=== PATIENT | male | born 1950 | race Caucasian/White ===

== ENCOUNTER 2018-07-25 00:34 | Inpatient (IN) | payer MEDICARE ==
[~2018-07-25] VITALS: Ht 170.2 cm; Wt 95.9 kg
[2018-07-25] VITALS (17 sets, daily range): BP systolic 105–172; BP diastolic 59–97
[~2018-07-25 00:34] MED LIST: AMLODIPINE BESY10 MG PO; ASPIRIN81 MG PO; CYMBALTA30 MG PO; FLECAINIDE ACE100 MG PO; HUMULIN R100 UNIT/2 SQ; LOSARTAN POTASS25 MG PEG; METFORMIN HCL500 MG PO; NOVOLIN N100 UNIT/1 SQ
--- OUTSIDE RECORDS SUMMARY | 2018-07-25 00:36 | XMS REPORT | Clinical Summary ---
Author Author [facility] Address Unknown Phone Unavailable Care Team Providers Care Snack [employer] Cook Name Role Phone Jeremy Olivo MD PCP Allergies Comments Active Allergy Reactions Severity Noted Date Carisoprodol Rash Low 08/15/2017 Medications End Date Status Medication Sig Dispensed Refills Start Date Active atorvastatin (LIPITOR) 20 Take 20 mg by 0 08/13/201 MG tablet mouth daily. 8 Active DULoxetine (CYMBALTA) 60 Take 60 mg by 0 08/14/201 MG capsule mouth daily. 8 Active flecainide (TAMBOCOR) 100 Take 100 mg 0 08/06/201 MG tablet by mouth 8 every 12 (twelve) hours. Active metFORMIN (GLUCOPHAGE) Take 1,000 mg 0 1,000 mg tablet by mouth 2 8 (two) times a day. Active ramipril (ALTACE) 5 MG Take 5 mg by 0 capsule mouth daily. 8 Active tamsulosin (FLOMAX) 0.4 Take 0.4 mg 0 mg capsule by mouth daily. Active dapagliflozin 10 mg Take 10 mg by 0 tablet mouth daily with breakfast. Active aspirin (ECOTRIN) 81 MG Take 81 mg by 0 enteric coated tablet mouth every evening. Per patient's spouse medication is currently ON HOLD x 3 days. Active insulin NPH (HumuLIN-N) Inject 25 0 100 unit/mL injection Units under the skin 2 (two) times a day. 02/13/2019 Active gabapentin (NEURONTIN) Take 2 180 capsule 0 300 mg capsule capsules (600 8 mg total) by mouth 3 (three) times a day. 02/14/2019 Active amLODIPine (NORVASC) 5 mg Take 1 tablet 30 tablet 0 tablet (5 mg total) 8 by mouth daily. Active guaiFENesin (MUCINEX) 600 Take 1 tablet 0 mg tablet extended (600 mg 8 release 12hr total) by mouth 2 (two) times a day as needed (cough). 02/13/2019 Active sennosides-docusate Take 1 tablet 60 tablet 0 sodium (SENOKOT-S) 8.6-50 by mouth 2 8 mg per tablet (two) times a day. 02/13/2019 Active clonIDINE (CATAPRES) 0.1 Take 1 tablet 0 MG tablet (0.1 mg 8 total) by mouth every 8 (eight) hours as needed for high blood pressure (SBP > 160). 02/13/2018 Discontinued amLODIPine (NORVASC) 10 Take 10 mg by 0 mg tablet mouth daily. 8 12/22/2017 Discontinued sulfamethoxazole-trimetho 0 prim (BACTRIM DS) 800-160 8 mg per tablet 08/15/2017 Discontinued piroxicam (FELDENE) 20 MG Take 1 30 capsule 0 capsule capsule (20 8 mg total) by mouth daily. 02/07/2018 Discontinued traMADol (ULTRAM) 50 mg Take 1 tablet 60 tablet 0 tablet (50 mg total) 8 by mouth every 4 (four) hours as needed for moderate pain. 09/14/2017 cyclobenzaprine Take 1 tablet 30 tablet 0 (FLEXERIL) 5 mg tablet (5 mg total) 8 by mouth 3 (three) times a day as needed for muscle spasms for up to 30 days. 01/08/2018 Discontinued piroxicam (FELDENE) 20 MG TAKE 1 90 capsule 0 capsule CAPSULE(20 8 MG) BY MOUTH DAILY 02/13/2018 Discontinued HYDROcodone-acetaminophen Take 1 tablet 60 tablet 0 (NORCO) 10-325 mg per by mouth 8 tablet every 6 (six) hours as needed for moderate pain Earliest Fill Date: 09/20/17. Max Daily Amount: 4 tablets 01/21/2018 polyethylene glycol Take 17 g by 30 packet 0 (MIRALAX) 17 gram packet mouth daily 8 for 30 days. 02/07/2018 Discontinued sennosides-docusate Take 1 tablet 30 tablet 0 sodium (SENOKOT-S) 8.6-50 by mouth 8 mg per tablet nightly. 01/22/2018 pantoprazole (PROTONIX) Take 1 tablet 30 tablet 0 40 MG EC tablet (40 mg total) 8 by mouth daily for 30 days. 01/08/2018 Discontinued metroNIDAZOLE (FLAGYL) Take 1 tablet 33 tablet 0 500 MG tablet (500 mg 8 total) by mouth 3 (three) times a day for 11 days. 12/29/2017 Discontinued ciprofloxacin (CIPRO) 500 Take 1 tablet 18 tablet 0 MG tablet (500 mg 8 total) by mouth 2 (two) times a day for 9 days. 01/08/2018 Discontinued bisacodyl (DULCOLAX) 5 mg Take 1 tablet 5 tablet 0 EC tablet (5 mg total) 8 by mouth 2 (two) times a day for 1 day. Prn constiparion 01/08/2018 Discontinued sulfamethoxazole-trimetho Take 1 tablet 20 tablet 0 prim (BACTRIM DS) 800-160 by mouth 2 8 mg per tablet (two) times a day for 10 days. smx-tmp DS (BACTRIM) 800-160 mg tabs (1tab q12 D10) 01/08/2018 Discontinued docusate sodium (COLACE) Take 1 10 capsule 0 100 MG capsule capsule (100 8 mg total) by mouth every 12 (twelve) hours for 5 days. 01/08/2018 Discontinued traMADol (ULTRAM) 50 mg Take 1 tablet 15 tablet 0 tablet (50 mg total) 8 by mouth every 6 (six) hours as needed for moderate pain for up to 10 days. In replacement of norco 02/13/2018 Discontinued pregabalin (LYRICA) 50 MG Take 1 60 capsule 0 capsule capsule (50 8 mg total) by mouth 2 (two) times a day for 30 days. 02/13/2018 Discontinued hyoscyamine Take 1 tablet 60 tablet 0 (ANASPAZ,LEVSIN) 0.125 mg (0.125 mg 8 tablet total) by mouth every 4 (four) hours as needed for cramping for up to 30 days. 01/09/2018 bisacodyl (DULCOLAX) 5 mg Take 1 tablet 5 tablet 0 EC tablet (5 mg total) 8 by mouth 2 (two) times a day for 1 day. Prn constiparion 02/13/2018 Discontinued docusate sodium (COLACE) Take 1 60 capsule 0 100 MG capsule capsule (100 8 mg total) by mouth every 12 (twelve) hours for 30 days. 02/13/2018 Discontinued insulin regular, human Inject 25 0 (NOVOLIN R REGULAR U-100 Units as INSULN INJ) directed 3 (three) times a day before meals. 02/13/2018 Discontinued finasteride (PROSCAR) 5 Take 5 mg by 0 mg tablet mouth daily. 03/15/2018 ondansetron ODT Take 1 tablet 0 (ZOFRAN-ODT) 4 MG (4 mg total) 8 disintegrating tablet by mouth every 8 (eight) hours as needed for nausea or vomiting for up to 30 days. 03/15/2018 hyoscyamine Take 1 tablet 60 tablet 0 (ANASPAZ,LEVSIN) 0.125 mg (0.125 mg 8 tablet total) by mouth every 4 (four) hours as needed for cramping for up to 30 days. 03/15/2018 metoclopramide (REGLAN) 5 Take 1 tablet 120 tablet 0 MG tablet (5 mg total) 8 by mouth 4 (four) times a day before meals and nightly for 30 days. 03/15/2018 docusate sodium (COLACE) Take 1 60 capsule 0 100 MG capsule capsule (100 8 mg total) by mouth every 12 (twelve) hours for 30 days. 03/15/2018 polyethylene glycol Take 17 g by 0 (MIRALAX) 17 gram packet mouth daily 8 as needed for constipation for up to 30 days. 02/27/2018 HYDROcodone-acetaminophen Take 2 0 (NORCO) 5-325 mg per tablets by 8 tablet mouth every 6 (six) hours as needed for moderate pain for up to 14 days. Max Daily Amount: 8 tablets 05/14/2018 indomethacin (INDOCIN) 25 Take 1 90 capsule 0 MG capsule capsule (25 8 mg total) by mouth 3 (three) times a day with meals for 90 days. 02/27/2018 hydromorPHONE (DILAUDID) Take 1 tablet 0 2 MG tablet (2 mg total) 8 by mouth every 4 (four) hours as needed for moderate pain (score 4-6) for up to 14 days. 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 Encounters Care Team Description Date Type Specialty Darnell Kern MD 02/11/2018 Refill Orthopedic Surgery Karl Jimenez MD Asbury, James F., MD Pain of left hip joint (Primary Dx); Unable to walk 02/07/2018 [facility] General Internal Medicine - Encounter 02/13/2018 Jacqui Sorenson MD NPH (normal pressure hydrocephalus) (Primary Dx); Lumbar radiculopathy 01/16/2018 Office Visit Neurosurgery Saran Grimes MD Lumbar spondylosis (Primary Dx) 12/31/2017 [facility] General Internal Medicine - Encounter 01/08/2018 Dilia Nelson MD Left lower quadrant pain (Primary Dx); UTI (urinary tract infection), bacterial; Lumbar radiculopathy, chronic 12/29/2017 Emergency Emergency Medicine Claudio Ha MD Shehata, Mohamed M., MD Intractable abdominal pain (Primary Dx); Left lower quadrant pain; Lumbar radiculopathy 12/17/2017 [facility] General Internal Medicine - Encounter 12/22/2017 Harinder Mcdowell MA Spinal stenosis of lumbar region, unspecified whether neurogenic claudication present (Primary Dx); Lumbar radiculopathy 09/27/2017 Orders Only Orthopedic Surgery Darnell Kern MD 09/24/2017 Telephone Orthopedic Surgery Darnell Kern MD Lumbar strain, subsequent encounter 09/22/2017 Hospital Radiology Encounter Darnell Kern MD Lumbar strain, subsequent encounter (Primary Dx); Lumbar radiculopathy 09/20/2017 Office Visit Sports Medicine Darnell Kern MD Strain of lumbar region, initial encounter (Primary Dx); Lumbar spondylosis; History of lumbar fusion 08/15/2017 Office Visit Sports Darnell Augustin MD 08/15/2017 Refill Sports Medicine after 07/24/2017 Family History Medical History Relation Name Comments Diabetes Father Cancer Mother Hypertension Mother Relation Name Status Comments Father Mother Social History Date Tobacco Use Types Packs/Day Years Used Never Smoker Smokeless Tobacco: Never Used Alcohol Use Drinks/Week oz/Week Comments No Sex Assigned at Date Recorded Not on file Industry Job Start Date Occupation Not on file Not on file Not on file Travel End Travel History Travel Start No recent travel history available. Last Filed Vital Signs Time Taken Vital Sign Reading 02/13/2018 12:18 PM CDT Blood Pressure 132/76 02/13/2018 12:18 PM CDT Pulse 74 02/13/2018 12:18 PM CDT Temperature 36.2 C (97.2 F) 02/13/2018 12:18 PM CDT Respiratory Rate 18 02/13/2018 12:18 PM CDT Oxygen Saturation 96% - Inhaled Oxygen - Concentration 02/09/2018 7:55 AM CDT Weight 89.4 kg (197 lb) 02/09/2018 7:55 AM CDT Height 177.8 cm (5' 10") 02/09/2018 7:55 AM CDT Body Mass Index 28.27 Plan of Treatment Health Maintenance Due Date Last Done Comments COLON CANCER SCREENING 1998 SHINGLES VACCINES (1 of 1998 2) PNEUMOCOCCAL-13 2013 INFLUENZA VACCINE 01/16/2018 03/24/2015, 06/24/2014 PNEUMOCOCCAL Completed 06/24/2014 POLYSACCHARIDE VACCINE AGE 65 AND OVER Implants Device Identifier Shelf Expiration Date Model / Serial / Lot Implanted Type Area Manufactur er Clips Procedures Comments Procedure Name Priority Date/Time Associated Diagnosis POC GLUCOSE Routine 02/13/2018 12:17 PM CDT POC GLUCOSE Routine 02/13/2018 7:05 AM CDT POC GLUCOSE Routine 02/12/2018 9:53 PM CDT POC GLUCOSE Routine 02/12/2018 5:39 PM CDT POC GLUCOSE Routine 02/12/2018 12:00 PM CDT POC GLUCOSE Routine 02/12/2018 7:59 AM CDT POC GLUCOSE Routine 02/11/2018 8:54 PM CDT POC GLUCOSE Routine 02/11/2018 5:07 PM CDT POC GLUCOSE Routine 02/11/2018 12:38 PM CDT POC GLUCOSE Routine 02/11/2018 8:22 AM CDT POC GLUCOSE Routine 02/10/2018 5:12 PM CDT XR CHEST 1 VW PORTABLE Routine 02/10/2018 1:30 PM CDT POC GLUCOSE Routine 02/10/2018 11:59 AM CDT POC GLUCOSE Routine 02/10/2018 8:03 AM CDT CBC HEMOGRAM Routine 02/10/2018 5:30 AM CDT ZZESTIMATED GFR Routine 02/10/2018 4:00 AM CDT BASIC METABOLIC PANEL Routine 02/10/2018 4:00 AM CDT POC GLUCOSE Routine 02/09/2018 9:19 PM CDT POC GLUCOSE Routine 02/09/2018 5:29 PM CDT POC GLUCOSE Routine 02/09/2018 1:56 PM CDT ECHOCARDIOGRAM 2D Routine 02/09/2018 COMPLETE W MMODE SPECTRAL 12:21 PM CDT COLOR DOPPLER ([id number]) POC GLUCOSE Routine 02/09/2018 10:34 AM CDT NM MYOCARDIAL PERFUSION Routine 02/09/2018 STRESS ONLY 9:29 AM CDT CV STRESS TEST NUCLEAR Routine 02/09/2018 CARDIO 9:29 AM CDT POC GLUCOSE Routine 02/08/2018 8:57 PM CDT POC GLUCOSE Routine 02/08/2018 5:36 PM CDT POC GLUCOSE Routine 02/08/2018 11:49 AM CDT POC GLUCOSE Routine 02/08/2018 7:53 AM CDT ZZESTIMATED GFR Routine 02/08/2018 5:05 AM CDT BASIC METABOLIC PANEL Routine 02/08/2018 5:05 AM CDT HC COMPLETE BLD COUNT Routine 02/08/2018 W/AUTO DIFF 5:05 AM CDT ECG 12-LEAD Routine 02/07/2018 10:21 PM CDT POC GLUCOSE Routine 02/07/2018 9:23 PM CDT POC GLUCOSE Routine 02/07/2018 7:00 PM CDT XR CHEST 1 VW STAT 02/07/2018 6:[address] PELVIS WO CONTRAST STAT 02/07/2018 4:22 PM CDT ZZESTIMATED GFR STAT 02/07/2018 1:56 PM CDT PARTIAL THROMBOPLASTIN STAT 02/07/2018 TIME (PTT) 1:56 PM CDT PROTHROMBIN TIME WITH INR STAT 02/07/2018 1:56 PM CDT COMPREHENSIVE METABOLIC STAT 02/07/2018 PANEL 1:56 PM CDT HC COMPLETE BLD COUNT STAT 02/07/2018 W/AUTO DIFF 1:56 PM CDT XR PELVIS 1 OR 2 VW STAT 02/07/2018 1:45 PM CDT XR HIP 2-3 VIEWS LEFT STAT 02/07/2018 1:45 PM CDT POC GLUCOSE Routine 01/08/2018 12:15 PM CDT POC GLUCOSE Routine 01/08/2018 8:06 AM CDT ZZESTIMATED GFR Routine 01/08/2018 5:21 AM CDT BASIC METABOLIC PANEL Routine 01/08/2018 5:21 AM CDT HC COMPLETE BLD COUNT Routine 01/08/2018 W/AUTO DIFF 5:21 AM CDT POC GLUCOSE Routine 01/07/2018 9:48 PM CDT POC GLUCOSE Routine 01/07/2018 5:59 PM CDT EMG Routine 01/07/2018 1:30 PM CDT POC GLUCOSE Routine 01/07/2018 11:34 AM CDT POC GLUCOSE Routine 01/07/2018 8:10 AM CDT POC GLUCOSE Routine 01/06/2018 9:21 PM CDT POC GLUCOSE Routine 01/06/2018 5:43 PM CDT POC GLUCOSE Routine 01/06/2018 12:15 PM CDT POC GLUCOSE Routine 01/06/2018 8:10 AM CDT POC GLUCOSE Routine 01/05/2018 7:49 PM CDT POC GLUCOSE Routine 01/05/2018 5:36 PM CDT POC GLUCOSE Routine 01/05/2018 11:37 AM CDT POC GLUCOSE Routine 01/05/2018 7:39 AM CDT POC GLUCOSE Routine 01/04/2018 10:30 PM CDT POC GLUCOSE Routine 01/04/2018 8:54 PM CDT POC GLUCOSE Routine 01/04/2018 5:15 PM CDT POC GLUCOSE Routine 01/04/2018 12:06 PM CDT POC GLUCOSE Routine 01/04/2018 7:27 AM CDT POC GLUCOSE Routine 01/03/2018 8:58 PM CDT POC GLUCOSE Routine 01/03/2018 6:35 PM CDT POC GLUCOSE Routine 01/03/2018 1:02 PM CDT EMG Routine 01/03/2018 11:22 AM CDT POC GLUCOSE Routine 01/03/2018 8:31 AM CDT HC COMPLETE BLD COUNT Routine 01/03/2018 W/AUTO DIFF 5:30 AM CDT ZZESTIMATED GFR Routine 01/03/2018 4:00 AM CDT BASIC METABOLIC PANEL Routine 01/03/2018 4:00 AM CDT POC GLUCOSE Routine 01/02/2018 11:34 PM CDT POC GLUCOSE Routine 01/02/2018 9:11 PM CDT POC GLUCOSE Routine 01/02/2018 6:32 PM CDT POC GLUCOSE Routine 01/02/2018 11:54 AM CDT POC GLUCOSE Routine 01/02/2018 7:42 AM CDT HC COMPLETE BLD COUNT Routine 01/02/2018 W/AUTO DIFF 5:00 AM CDT ZZESTIMATED GFR Routine 01/02/2018 4:00 AM CDT PHOSPHORUS LEVEL Routine 01/02/2018 4:00 AM CDT BASIC METABOLIC PANEL Routine 01/02/2018 4:00 AM CDT POC GLUCOSE Routine 01/01/2018 8:56 PM CDT POC GLUCOSE Routine 01/01/2018 5:18 PM CDT POC GLUCOSE Routine 01/01/2018 11:41 AM CDT URINALYSIS SCREEN AND Routine 12/31/2017 MICROSCOPY, WITH REFLEX 10:52 PM CDT TO CULTURE GRAM STAIN Routine 12/31/2017 10:52 PM CDT URINE CULTURE Routine 12/31/2017 10:52 PM CDT TYPE AND SCREEN Routine 12/31/2017 10:10 PM CDT PARTIAL THROMBOPLASTIN Routine 12/31/2017 TIME (PTT) 10:10 PM CDT PROTHROMBIN TIME WITH INR Routine 12/31/2017 10:10 PM CDT HC COMPLETE BLD COUNT Routine 12/31/2017 W/AUTO DIFF 10:10 PM CDT US RENAL Routine 12/31/2017 8:20 PM CDT ZZESTIMATED GFR Routine 12/31/2017 6:57 PM CDT PHOSPHORUS LEVEL Routine 12/31/2017 6:57 PM CDT MAGNESIUM LEVEL Routine 12/31/2017 6:57 PM CDT COMPREHENSIVE METABOLIC Routine 12/31/2017 PANEL 6:57 PM CDT LACTIC ACID LEVEL, SEPSIS Timed 12/29/2017 - NOW AND REPEAT 2X EVERY 7:30 PM CD[address] ABDOMEN PELVIS W STAT 12/29/2017 CONTRAST 5:19 PM CDT URINALYSIS SCREEN AND Timed 12/29/2017 MICROSCOPY, WITH REFLEX 4:10 PM CDT TO CULTURE GRAM STAIN Timed 12/29/2017 4:10 PM CDT URINE CULTURE Timed 12/29/2017 4:10 PM CDT ECG ED PRELIMINARY Routine 12/29/2017 INTERPRETATION 3:59 PM CDT LACTIC ACID LEVEL STAT 12/29/2017 3:50 PM CDT ZZESTIMATED GFR STAT 12/29/2017 3:50 PM CDT LIPASE LEVEL STAT 12/29/2017 3:50 PM CDT COMPREHENSIVE METABOLIC STAT 12/29/2017 PANEL 3:50 PM CDT HC COMPLETE BLD COUNT STAT 12/29/2017 W/AUTO DIFF 3:50 PM CDT ECG 12-LEAD STAT 12/29/2017 3:42 PM CDT POC GLUCOSE Routine 12/22/2017 8:06 AM CDT ZZESTIMATED GFR Routine 12/22/2017 4:00 AM CDT BASIC METABOLIC PANEL Routine 12/22/2017 4:00 AM CDT HC COMPLETE BLD COUNT Routine 12/22/2017 W/AUTO DIFF 4:00 AM CDT MRI LUMBAR SPINE WO Routine 12/21/2017 CONTRAST 10:05 PM CDT POC GLUCOSE Routine 12/21/2017 8:19 PM CDT POC GLUCOSE Routine 12/21/2017 5:17 PM CDT XR KNEE 3 VW RIGHT Routine 12/21/2017 4:42 PM CDT XR ELBOW 3+ VW LEFT Routine 12/21/2017 4:41 PM CDT POC GLUCOSE Routine 12/21/2017 12:31 PM CDT POC GLUCOSE Routine 12/21/2017 8:18 AM CDT HC COMPLETE BLD COUNT Routine 12/21/2017 W/AUTO DIFF 5:[address] HEAD WO CONTRAST STAT 12/21/2017 5:07 AM CDT PROTHROMBIN TIME WITH INR Routine 12/21/2017 3:54 AM CDT PARTIAL THROMBOPLASTIN Routine 12/21/2017 TIME (PTT) 3:54 AM CDT POC GLUCOSE Routine 12/20/2017 10:17 PM CDT XR ABDOMEN 1 VW STAT 12/20/2017 9:41 PM CDT NM HEPATOBILIARY Routine 12/20/2017 7:19 PM CDT LIPASE LEVEL Routine 12/20/2017 3:29 PM CDT AMYLASE LEVEL Routine 12/20/2017 3:29 PM CDT HEPATIC FUNCTION PANEL Routine 12/20/2017 3:29 PM CDT POC GLUCOSE Routine 12/20/2017 12:00 PM CDT POC GLUCOSE Routine 12/20/2017 7:48 AM CDT ZZESTIMATED GFR Routine 12/20/2017 5:11 AM CDT BASIC METABOLIC PANEL Routine 12/20/2017 5:11 AM CDT HC COMPLETE BLD COUNT Routine 12/20/2017 W/AUTO DIFF 5:11 AM CDT POC GLUCOSE Routine 12/19/2017 9:17 PM CDT POC GLUCOSE Routine 12/19/2017 5:28 PM CDT POC GLUCOSE Routine 12/19/2017 12:44 PM CDT POC GLUCOSE Routine 12/19/2017 7:40 AM CDT HEMOGLOBIN A1C Routine 12/19/2017 5:54 AM CDT HC COMPLETE BLD COUNT Routine 12/19/2017 W/AUTO DIFF 5:54 AM CDT ZZESTIMATED GFR Routine 12/19/2017 4:00 AM CDT LIPID PANEL Routine 12/19/2017 4:00 AM CDT BASIC METABOLIC PANEL Routine 12/19/2017 4:00 AM CDT POC GLUCOSE Routine 12/18/2017 9:19 PM CDT POC GLUCOSE Routine 12/18/2017 5:17 PM CDT POC GLUCOSE Routine 12/18/2017 4:12 PM CDT US RENAL Routine 12/18/2017 10:30 AM CDT US ABDOMEN COMPLETE Routine 12/18/2017 10:30 AM CDT POC GLUCOSE Routine 12/18/2017 5:12 AM CDT ZZESTIMATED GFR Routine 12/18/2017 4:00 AM CDT PROSTATE SPECIFIC ANTIGEN Routine 12/18/2017 4:00 AM CDT BASIC METABOLIC PANEL Routine 12/18/2017 4:00 AM CDT HC COMPLETE BLD COUNT Routine 12/18/2017 W/AUTO DIFF 3:03 AM CDT LACTIC ACID LEVEL, SEPSIS Timed 12/17/2017 - NOW AND REPEAT 2X EVERY 11:15 PM CDT 3 HOURS URINALYSIS SCREEN AND STAT 12/17/2017 MICROSCOPY, WITH REFLEX 10:00 PM CDT TO CULTURE URINE CULTURE STAT 12/17/2017 10:[address] ABDOMEN PELVIS WO STAT 12/17/2017 CONTRAST 8:22 PM CDT LACTIC ACID LEVEL, SEPSIS Timed 12/17/2017 - NOW AND REPEAT 2X EVERY 7:40 PM CDT 3 HOURS ZZESTIMATED GFR STAT 12/17/2017 4:30 PM CDT LACTIC ACID LEVEL, SEPSIS STAT 12/17/2017 - NOW AND REPEAT 2X EVERY 4:30 PM CDT 3 HOURS LIPASE LEVEL STAT 12/17/2017 4:30 PM CDT COMPREHENSIVE METABOLIC STAT 12/17/2017 PANEL 4:30 PM CDT HC COMPLETE BLD COUNT STAT 12/17/2017 W/AUTO DIFF 4:30 PM CDT MRI LUMBAR SPINE WO Routine 09/22/2017 Lumbar strain, subsequent CONTRAST 3:43 PM CDT encounter after 07/24/2017 Results * POC glucose (02/13/2018 12:17 PM CDT) Only the most recent of 70 results within the time period is included. POC glucose 175 (H) 65 - 99 mg/dL [facility]PART[facility] OF Comment: PATHOLOGY AND H Notified RN GENOMIC MEDICINE Meter ID: [id number] Tunneling Machine Operator: Roger Lopez Performing Organization Address City/State/Zipcode Phone Number [facility] OF [address] [place] [address] PATHOLOGY AND GENOMIC MEDICINE * XR Chest 1 Vw Portable (02/10/2018 1:30 PM CDT) Narrative Performed At EXAMINATION:XR CHEST 1 VW PORTABLE [facility]IANT CLINICAL HISTORY:cough COMPARISON: February 07, 2018 . IMPRESSION: 1.Heart size and mediastinum are prominent. 2.The right hemidiaphragm is slightly elevated. Lungs are clear. 3.No pneumothorax. 4.Evaluation is stable relative to prior. [facility]-[id number] Procedure Note Interface, Radiology Results Incoming - 02/10/2018 1:43 PM CDT EXAMINATION: XR CHEST 1 VW PORTABLE CLINICAL HISTORY: cough COMPARISON: February 07, 2018 . IMPRESSION: 1. Heart size and mediastinum are prominent. 2. The right hemidiaphragm is slightly elevated. Lungs are clear. 3. No pneumothorax. 4. Evaluation is stable relative to prior. [facility]-[id number] Performing Organization Address City/[facility]/Zipcode Phone Number [facility] [address] [place] [address] * CBC hemogram (02/10/2018 5:30 AM CDT) WBC 10.64 4.50 - 11.00 k/uL [facility] DEPARTMENT OF PATHOLOGY AND GENOMIC MEDICINE RBC 4.13 (L) 4.40 - 6.00 m/uL [facility] OF PATHOLOGY AND GENOMIC MEDICINE HGB 12.0 (L) 14.0 - 18.0 g/dL [facility] OF PATHOLOGY AND GENOMIC MEDICINE HCT 37.4 (L) 41.0 - 51.0 % [facility]PARTMENT OF PATHOLOGY AND GENOMIC MEDICINE MCV 90.6 82.0 - 100.0 fL [facility] OF PATHOLOGY AND GENOMIC MEDICINE MCH 29.1 27.0 - 34.0 pg [facility] DEPARTMENT OF PATHOLOGY AND GENOMIC MEDICINE MCHC 32.1 31.0 - 37.0 g/dL [facility] DEPARTMENT OF PATHOLOGY AND GENOMIC MEDICINE RDW - SD 44.1 37.0 - 55.0 fL [facility] DEPARTMENT OF PATHOLOGY AND GENOMIC MEDICINE MPV 9.7 8.8 - 13.2 fL [facility] DEPARTMENT OF PATHOLOGY AND GENOMIC MEDICINE Platelet count 251 150 - 400 k/uL [facility] DEPARTMENT OF PATHOLOGY AND GENOMIC MEDICINE Nucleated RBC 0.00 /100 WBC [facility] DEPARTMENT OF PATHOLOGY AND GENOMIC MEDICINE Specimen Blood Performing Organization Address City/[facility] Phone Number [facility] OF [address] [place] [id number] PATHOLOGY AND GENOMIC MEDICINE * Estimated GFR (02/10/2018 4:00 AM CDT) Only the most recent of 13 results within the time period is included. GFR Non Af Amer >90 mL/min/1.73 m2 [facility]PARTMENT OF PATHOLOGY AND GENOMIC MEDICINE GFR Af Amer >90 mL/min/1.73 m2 [facility] Comment: PATHOLOGY AND Chronic kidney disease: <60 GENOMIC MEDICINE mL/min/1.73m2 Kidney failure: <15 mL/min/1.73m2 The estimated GFR is calculated from the IDMS-traceable Modification of Diet in Renal Disease Equation. The accuracy of the calculation is poor when the creatinine is normal. Calculated values >90 mL/min/1.73m2 are not reported. This equation has not been validated in children (<18 years), women, the elderly (>70 years), or ethnic groups other than Caucasians and Americans. Specimen Plasma specimen Performing Organization Address [facility] Centercone Phone Number [facility] [address] PATHOLOGY AND [facility] * Basic metabolic panel (02/10/2018 4:00 AM CDT) Only the most recent of 9 results within the time period is included. Sodium 138 135 - 148 mEq/L [facility]PART[facility] OF PATHOLOGY AND GENOMIC MEDICINE Potassium 4.0 3.5 - 5.0 mEq/L [facility] DEPARTMENT OF PATHOLOGY AND GENOMIC MEDICINE Chloride 99 98 - 112 mEq/L [facility] DEPARTMENT OF PATHOLOGY AND GENOMIC MEDICINE CO2 26 24 - 31 mEq/L [facility] DEPARTMENT OF PATHOLOGY AND GENOMIC MEDICINE Anion gap 13@ANIO 7 - 15 mEq/L [facility] DEPARTMENT OF PATHOLOGY AND GENOMIC MEDICINE BUN 14 8 - 23 mg/dL [facility] DEPARTMENT OF PATHOLOGY AND GENOMIC MEDICINE Creatinine 0.7 0.7 - 1.2 mg/dL [facility] DEPARTMENT OF PATHOLOGY AND GENOMIC MEDICINE Glucose 71 65 - 99 mg/dL [facility] DEPARTMENT OF PATHOLOGY AND GENOMIC MEDICINE Calcium 9.3 8.8 - 10.2 mg/dL [facility] DEPARTMENT OF PATHOLOGY AND GENOMIC MEDICINE Specimen Plasma specimen Performing Organization Address [facility] Phone Number [facility] [place] [address] PATHOLOGY AND [facility] MEDICINE * Echocardiogram complete w contrast and 3D if needed (02/09/2018 12:21 PM CDT) Narrative Performed At [facility] Echocardiography Report [address] [facility] [address], [place] [address] Pat.Name:RONY VU Obdulia Vasquez.ID:[id number] .Date: 02/09/2018 Refer.MD:RUDI KAHN MD Exam Time: 11:06:00 AM Study Type:Routine Echo Height:70inWeight:197lb BSA: 2.08 m2 DOBAge:1950,67Y Sex: MALEBP:146/78 HR:69 bpm Sonogrphr: Paramjit [facility]. Stat.:Inpatient Room:[facility] Study Status:Final Echo Event ID:[id number] Order ID:[id number] Reason for Study:Atrial fibrillation History / Clinical:Atrial Fibrillation, Diabetes, Hep C Procedures:2D Echo, Colorflow Doppler, Strain, Portable Race:C SUMMARY: LV EF is normal. RV systolic function is normal. FINDINGS: LV: LV size is normal. LV EF is normal. Overall wall motion is normal.GLS is normal at -17.8% Estimated EF is 55-59%. RV: RV size is normal. RV systolic function is normal. RV wall motionis normal. LA: LA size is normal. RA: RA size is normal. AO: Aortic root diameter is normal. NILES: No pericardial effusion. AV: No structural AV abnormalities noted. MV: No structural MV abnormalities noted. A trace of mitral regurgitation. PV: No structural PV abnormalities noted. A trace of pulmonic regurgitation. TV: No structural TV abnormalities noted. A trace of tricuspid regurgitation Arora: Diastolic dysfunction Grade I (Mild): Impaired relaxation withnormal LV filling pressures. Other:Estimated PA systolic pressure is 26 mmHg, assuming a mean RAPof 5 mmHg. MEASUREMENTS: 2D Parasternal [place] LVOT 2.3 cmLA Ds2.8 cm LVIDd4.4 cmIndex2.1 cm/m Ao Rtd 3.7 cm Index1.8 cm/m LVIDs2.9 cm LV Urka483.8 g(122-174) LV%fs 33.8 % LVM Index 83.6 g/m2 IVSd 1.3 cmRWT0.4 LVPWd0.9 cm LA Sng Plane LA Area 14 cm2(8.8-23.4) LA Vol32.9 ml Index15.8 ml/m LA LngAx 4.5 cm Signed 02/09/2018 07:49 PM Lyndsey Sy M.D. Procedure Note Interface, Radiology Results In - 02/09/2018 7:50 PM CDT Echocardiography Report [address] [place] [address] Pat.Name: VU ALVAREZ Pat.ID: [id number] .Date: 02/09/2018 Refer.MD: RUDI KAHN MD Exam Time: 11:06:00 AM Study Type:Routine Echo Height: 70in Weight: 197lb BSA: 2.08 m2 Age: 2 1950,67Y Sex: MALE BP: 146/78 HR: 69 bpm Sonogrphr: AUDREY Herrera Pat. Stat.:Inpatient Room: [facility] Study Status:Final Echo Event ID:[id number] Order ID: [id number] Reason for Study:Atrial fibrillation History / Clinical:Atrial Fibrillation, Diabetes, Hep C Procedures:2D Echo, Colorflow Doppler, Strain, Portable Race: C SUMMARY: LV EF is normal. RV systolic function is normal. FINDINGS: LV: LV size is normal. LV EF is normal. Overall wall motion is normal. GLS is normal at -17.8% Estimated EF is 55-59%. RV: RV size is normal. RV systolic function is normal. RV wall motion is normal. LA: LA size is normal. RA: RA size is normal. AO: Aortic root diameter is normal. NILES: No pericardial effusion. AV: No structural AV abnormalities noted. MV: No structural MV abnormalities noted. A trace of mitral regurgitation. PV: No structural PV abnormalities noted. A trace of pulmonic regurgitation. TV: No structural TV abnormalities noted. A trace of tricuspid regurgitation Arora: Diastolic dysfunction Grade I (Mild): Impaired relaxation with normal LV filling pressures. Other: Estimated PA systolic pressure is 26 mmHg, assuming a mean RAP of 5 mmHg. MEASUREMENTS: 2D Parasternal [place] LVOT 2.3 cm LA Ds 2.8 cm LVIDd 4.4 cm Index 2.1 cm/m Ao Rtd 3.7 cm Index 1.8 cm/m LVIDs 2.9 cm LV Mass 173.8 g (122-174) LV%fs 33.8 % LVM Index 83.6 g/m2 IVSd 1.3 cm RWT 0.4 LVPWd 0.9 cm LA Sng Plane LA Area 14 cm2 (8.8-23.4) LA Vol 32.9 ml Index 15.8 ml/m LA LngAx 4.5 cm Signed 02/09/2018 07:49 PM Lyndsey Sy M.D. Performing Organization Address City/State/Zipcode Phone Number [facility] [address] [place] [address] * Cv ecg exercise stress (no imaging) (02/09/2018 9:29 AM CDT) Resting HR 67 [facility] Resting BP 164 [facility] Peak MET Achieved 1.0 [facility] Protocol Name HAYDEN [facility] Time in Exercise Phase 00:01:00 [facility] Max Systolic BP 164 [facility] Max Diastolic BP 79 [facility] Max Heart Rate 83 [facility] Max Predicted Heart Rate 151 [facility] Target HR Formula (220 - Age)*100% [facility] Test Indication A-FIB [facility] Stress Test Impression -Waveform interpreted in [facility] report associated with image study. No interpretation is provided as part of this Stress ECG report.-Electronically Signed By Marian MANUEL, Kaushik ([id number]), editorial director Jocy Russo ([id number]) on 02/09/2018 10:15:57 AM Target HR 128.35 bpm [facility] Performing Organization Address City/State/Zipcode Phone Number [facility] [address] [place] [address] * Nm myocardial perfusion (02/09/2018 9:29 AM CDT) Narrative Performed At [facility] Nuclear Cardiology and Cardiac CT [address] [place] [address] Myocardial Perfusion Imaging Report Stress ECG tracings are available in MUSE, [employer] and [employer] All ECG interpretations are included in this report Pat.Name:Cortez Alvarez.ID:[id number] .Date: 02/09/2018 Refer.MD:RUDI KAHN MD Exam Time: 8:51:00 AM Study Type:Myocardial Perfusion Imaging Height:62inBSA: 1.9 m2 DOBAge:1950,67YSex: MALE BP:164/79HR: 67 bpm HCT: 38.1 % Nuclear Tech:TROI Whittington, TORI Walsh Pat. Stat.:Inpatient Room:A845 Nuclear Event ID:[id number] Order ID:[id number] Reason for Study:Atrial fibrillation*, Pre-op evaluation non-coronary cardiac surgery History / Clinical:Atrial fibrillation/flutter Procedures:Stress only Risk Factors:Arrythmia Clinical Symptoms:Regadenoson Physical Exam:S1, S2 Surgery: Serum K+ Date,3.7 )02/08/18/, BUN/Creatinine Date,15/0.7 )02/08/18/, Other pertinent lab results, hgb 12.5 02/08/18 Medications:Amlodipine, Aspirin, Insulin, Ramipril, Atorvastatin, Gabapentin,Duloxetine SUMMARY: SCINTIGRAPHIC RESULTS Perfusion Defect Size (% LV) 0 % Total 0 % Ischemia 0 % Scar Left Ventricular Perfusion Results There is normal tracer distribution throughout the myocardium during stress. Gated SPECT Results The post-stress left ventricular ejection fraction is 77 % with normal regional wall motion and left ventricular thickening.Left ventricular end-diastolic volume is 105 ml; end-systolic volume is24 ml. The left ventricle is of normal size at stress.The right ventricle is of normal size with normal wall motion. Conclusion Normal regadenoson Tc-99m tetrofosmin myocardial perfusion study. The left ventricular ejection fraction is normal. CT Findings: Coronary calcification is present.The ascending and descending aorta are normal in size. There is no significant pericardial effusion. Limited lung kennedy show no significant abnormalities. Comments Patients with a normal stress myocardial perfusion study have a low (< 1%) annual risk of cardiac or nonfatal myocardial infarction. Study Quality/Artifacts The study quality is good.The mild reduction in apical lateral and mid inferiorwall counts during stress is probably due to diaphragmatic and other soft tissue attenuation artifacts rather than coronary artery disease. Comparison to Previous Study None available. STRESS: Baseline Vital Signs:Intervention: Regadenoson 0.4mg/5ml IV over 10 seconds followed by radiotracer injection and 5ml saline flush ECG: Normal Sinus Rhythm HR:67 BP:164/79 Rhythm:First degree block, Non-specific ST changes Stress Test Results: Target HR: 128 Symptoms and Complications: Terminated: As per Regadenoson protocol Symptoms:Asymptomatic Complications: none Conclusions: Normal heart rate response to pharmacological stress, Normal blood pressure response to pharmacological stress Signed 02/09/2018 12:52:57 PM Kaushik Fonseca MD Revised Procedure Note Interface, Radiology Results In - 02/09/2018 12:53 PM CDT Nuclear Cardiology and Cardiac CT [address] [address] Myocardial Perfusion Imaging Report Stress ECG tracings are available in Rule., [employer] and [employer] All ECG interpretations are included in this report Pat.Name: Vu Alvarez Pat.ID: [id number] .Date: 02/09/2018 Refer.MD: RUDI KAHN MD Exam Time: 8:51:00 AM Study Type:Myocardial Perfusion Imaging Height: 62in BSA: 1.9 m2 Age: 2 1950,67Y Sex: MALE BP: 164/79 HR: 67 bpm HCT: 38.1 % Nuclear Tech:TORI Whittington, TORI Walsh Pat. Stat.:[facility][id number] Order ID: [id number] Reason for Study:Atrial fibrillation*, Pre-op evaluation non-coronary cardiac surgery History / Clinical:Atrial fibrillation/flutter Procedures:Stress only Risk Factors:Arrythmia Clinical Symptoms:Regadenoson Physical Exam:S1, S2 Surgery: Serum K+ Date, 3.7 )02/08/18/, BUN/Creatinine Date, 15/0.7 )02/08/18/, Other pertinent lab results, hgb 12.5 02/08/18 Medications:Amlodipine, Aspirin, Insulin, Ramipril, Atorvastatin, Gabapentin,Duloxetine SUMMARY: SCINTIGRAPHIC RESULTS Perfusion Defect Size (% LV) 0 % Total 0 % Ischemia 0 % Scar Left Ventricular Perfusion Results There is normal tracer distribution throughout the myocardium during stress. Gated SPECT Results The post-stress left ventricular ejection fraction is 77 % with normal regional wall motion and left ventricular thickening. Left ventricular end-diastolic volume is 105 ml; end-systolic volume is 24 ml. The left ventricle is of normal size at stress. The right ventricle is of normal size with normal wall motion. Conclusion Normal regadenoson Tc-99m tetrofosmin myocardial perfusion study. The left ventricular ejection fraction is normal. CT Findings: Coronary calcification is present. The ascending and descending aorta are normal in size. There is no significant pericardial effusion. Limited lung kennedy show no significant abnormalities. Comments Patients with a normal stress myocardial perfusion study have a low (< 1%) annual risk of cardiac or nonfatal myocardial infarction. Study Quality/Artifacts The study quality is good. The mild reduction in apical lateral and mid inferior wall counts during stress is probably due to diaphragmatic and other soft tissue attenuation artifacts rather than coronary artery disease. Comparison to Previous Study None available. STRESS: Baseline Vital Signs: Intervention: Regadenoson 0.4mg/5ml IV over 10 seconds followed by radiotracer injection and 5ml saline flush ECG: Normal Sinus Rhythm HR: 67 BP: 164/79 Rhythm: First degree block, Non-specific ST changes Stress Test Results: Target HR: 128 Symptoms and Complications: Terminated: As per Regadenoson protocol Symptoms: Asymptomatic Complications: none Conclusions: Normal heart rate response to pharmacological stress, Normal blood pressure response to pharmacological stress Signed 02/09/2018 12:52:57 PM Kaushik Fonseca MD Revised Performing Organization Address City/State/Zipcode Phone Number [facility] [address] [place] [address] * CBC with platelet and differential (02/08/2018 5:05 AM CDT) Only the most recent of 13 results within the time period is included. WBC 12.45 (H) 4.50 - 11.00 k/uL [facility] DEPARTMENT OF PATHOLOGY AND GENOMIC MEDICINE RBC 4.35 (L) 4.40 - 6.00 m/uL [facility] OF PATHOLOGY AND GENOMIC MEDICINE HGB 12.5 (L) 14.0 - 18.0 g/dL [facility] OF PATHOLOGY AND GENOMIC MEDICINE HCT 38.1 (L) 41.0 - 51.0 % [facility] DEPARTMENT OF PATHOLOGY AND GENOMIC MEDICINE MCV 87.6 82.0 - 100.0 fL [facility] DEPARTMENT OF PATHOLOGY AND GENOMIC MEDICINE MCH 28.7 27.0 - 34.0 pg [facility] DEPARTMENT OF PATHOLOGY AND GENOMIC MEDICINE MCHC 32.8 31.0 - 37.0 g/dL [facility] DEPARTMENT OF PATHOLOGY AND GENOMIC MEDICINE RDW - SD 43.1 37.0 - 55.0 fL [facility] DEPARTMENT OF PATHOLOGY AND GENOMIC MEDICINE MPV 9.4 8.8 - 13.2 fL [facility] OF PATHOLOGY AND GENOMIC MEDICINE Platelet count 256 150 - 400 k/uL [facility] DE[facility]MENT OF PATHOLOGY AND GENOMIC MEDICINE Nucleated RBC 0.00 /100 WBC [facility] DEPARTMENT OF PATHOLOGY AND GENOMIC MEDICINE Neutrophils 62.2 39.0 - 69.0 % [facility] OF PATHOLOGY AND GENOMIC MEDICINE Lymphocytes 23.2 (L) 25.0 - 45.0 % [facility]PARTMENT OF PATHOLOGY AND GENOMIC MEDICINE Monocytes 12.2 (H) 0.0 - 10.0 % [facility] DEPARTMENT OF PATHOLOGY AND GENOMIC MEDICINE Eosinophils 1.1 0.0 - 5.0 % [facility]PARTMENT OF PATHOLOGY AND GENOMIC MEDICINE Basophils 0.7 0.0 - 1.0 % [facility] DEPARTMENT OF PATHOLOGY AND GENOMIC MEDICINE Immature granulocytes 0.6Comment: "Immature 0.0 - 1.0 % [facility] DEPARTMENT OF granulocytes" (promyelocytes, PATHOLOGY AND myelocytes, metamyelocytes) [facility] MEDICINE Specimen Blood Performing Organization Address City/State/Zipcode Phone Number [facility] DEPARTMENT OF [address] [place] [address] PATHOLOGY AND GENOMIC MEDICINE * ECG 12 lead (02/07/2018 10:21 PM CDT) Only the most recent of 2 results within the time period is included. Ventricular rate 84 [facility] Atrial rate 84 [facility] [place] interval 214 [facility] QRSD interval 94 [facility] QT interval 370 [facility] QTC interval 437 [facility] P axis 1 37 [facility] QRS axis 1 4 [facility] T wave axis 83 [facility] EKG impression Sinus rhythm with 1st degree [facility] AV block-Nonspecific T wave abnormality-Abnormal ECG-In automated comparison with ECG of 29-DEC-2017 15:42,-Nonspecific T wave abnormality, worse in Anterior leads- Performing Organization Address [facility] Cent[facility]ode Phone Number [facility] [address] [place] [address] * XR Chest 1 Vw (02/07/2018 6:35 PM CDT) Narrative Performed At EXAMINATION:[facility] CL[facility]ICAL HISTORY: fall at 31m this morningr o trauma COMPARISON:None IMPRESSION: No radiographic evidence for acute cardiopulmonary process. Cardiomediastinal silhouette is at the upper limits of normal in size. No focal or confluent airspace consolidation is seen on this single AP plane to suggest acute pneumonia. No sizable pleural effusion. No pneumothorax identified. No acute osseous abnormalities are visualized. [facility]-[id number] Procedure Note Hm Interface, Radiology Results Incoming - 02/07/2018 6:40 PM CDT EXAMINATION: XR CHEST 1 VW CLINICAL HISTORY: fall at 31m this morning r o trauma COMPARISON: None IMPRESSION: No radiographic evidence for acute cardiopulmonary process. Cardiomediastinal silhouette is at the upper limits of normal in size. No focal or confluent airspace consolidation is seen on this single AP plane to suggest acute pneumonia. No sizable pleural effusion. No pneumothorax identified. No acute osseous abnormalities are visualized. [facility]-[id number] Performing Organization Address [facility] Cent[facility]one Phone Number [facility] [address] [place] [address] * CT Pelvis Wo Contrast (02/07/2018 4:22 PM CDT) Narrative Performed At EXAMINATION:CT PELVIS WO CONTRAST [facility] CLINICAL HISTORY:fall TECHNIQUE:Axial images ofpelviswithout contrast.Images were acquired in bone and soft tissuealgorithm with thin sections and multiplanar reformats archived and interpreted...All CT images were acquired using radiation dose lowering technique with automated exposure control and iterative reconstruction. COMPARISON:CT pelvis, 12/29/2017 IMPRESSION: 1.Posterior decompression and fusion hardware in the lumbar spine bridging the lumbosacral junction, partially visualized. Bones are. 2.Nondisplaced acute fracture through the left acetabular roof, extending into the anterior and posterior columns, new since prior. Fracture plane also involves the medial acetabular wall, and extends to the junction with the superior pubic ramus, where there is mild comminution. 3.Acute fracture in the posterior inferior margin of the left acetabulum as well, with mild distraction across the fracture plane of 3.5 mm. 4.Acute nondisplaced fracture through the body of the left inferior pubic ramus, and a subtle nondisplaced acute fracture more centrally in the left inferior pubic ramus as well, series 6 image 178. 5.Remaining visualized bones appear intact. 6.Moderate bilateral hip OA. 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 No hip joint effusion. 7.Chronic calcific hamstring origin tendinitis bilaterally. 8.Small amount of intrapelvic hemorrhage on the left side, related to the pelvic fractures. 9.Urinary bladder is significantly distended, with a small gas bubble suggesting recent catheterization. [place] catheter decompression advised. 10.Prostate gland enlarged. Seminal vesicles grossly normal. 11.Prominent fecal material within the rectum may indicate constipation and/or fecal impaction. Disimpaction recommended. Distal colonic diverticulosis partially visualized. SUMMARY: Acute fractures of the left acetabular roof involving the anterior and posterior columns, junction with the superior pubic ramus, medial acetabular wall, and posteroinferior acetabulum. Acute fractures also of the left inferior pubic ramus. 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 Distended urinary bladder consider [place]. Constipation and/or fecal impaction. Disimpaction recommended to avoid stercoral colitis. [facility]-[id number] Procedure Note Interface, Radiology Results Incoming - 02/07/2018 5:12 PM CDT EXAMINATION: CT PELVIS WO CONTRAST CLINICAL HISTORY: fall TECHNIQUE: Axial images of pelvis without contrast. Images were acquired in bone and soft tissue algorithm with thin sections and multiplanar reformats archived and interpreted. .. All CT images were acquired using radiation dose lowering technique with automated exposure control and iterative reconstruction. COMPARISON: CT pelvis, 12/29/2017 IMPRESSION: 1. Posterior decompression and fusion hardware in the lumbar spine bridging the lumbosacral junction, partially visualized. Bones are. 2. Nondisplaced acute fracture through the left acetabular roof, extending into the anterior and posterior columns, new since prior. Fracture plane also involves the medial acetabular wall, and extends to the junction with the superior pubic ramus, where there is mild comminution. 3. Acute fracture in the posterior inferior margin of the left acetabulum as well, with mild distraction across the fracture plane of 3.5 mm. 4. Acute nondisplaced fracture through the body of the left inferior pubic ramus, and a subtle nondisplaced acute fracture more centrally in the left inferior pubic ramus as well, series 6 image 178. 5. Remaining visualized bones appear intact. 6. Moderate bilateral hip OA. 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 No hip joint effusion. 7. Chronic calcific hamstring origin tendinitis bilaterally. 8. Small amount of intrapelvic hemorrhage on the left side, related to the pelvic fractures. 9. Urinary bladder is significantly distended, with a small gas bubble suggesting recent catheterization. [place] catheter decompression advised. 10. Prostate gland enlarged. Seminal vesicles grossly normal. 11. Prominent fecal material within the rectum may indicate constipation and/or fecal impaction. Disimpaction recommended. Distal colonic diverticulosis partially visualized. SUMMARY: Acute fractures of the left acetabular roof involving the anterior and posterior columns, junction with the superior pubic ramus, medial acetabular wall, and posteroinferior acetabulum. Acute fractures also of the left inferior pubic ramus. 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 Distended urinary bladder consider [place]. Constipation and/or fecal impaction. Disimpaction recommended to avoid stercoral colitis. [facility]-[id number] Performing Organization Address [facility] Centercode Phone Number [facility] [address] [place] [address] * Partial thromboplastin time, activated (02/07/2018 1:56 PM CDT) Only the most recent of 3 results within the time period is included. PTT 30.2 23.0 - 36.0 sec [facility] DEPARTMENT OF Comment: PATHOLOGY AND PTT therapeutic range for [place] MEDICINE unfractionated heparin is 61.0-112.0 seconds which corresponds to Anti-Xa 0.3-0.7 U/ml. Specimen Blood Performing Organization Address [facility]/Zipcode Phone Number [address] [address] PATHOLOGY AND [place] [facility]IC[facility] * Prothrombin time with INR (02/07/2018 1:56 PM CDT) Only the most recent of 3 results within the time period is included. Prothrombin time 13.9 12.0 - 15.0 sec [facility] DEPARTMENT OF PATHOLOGY AND GENOMIC MEDICINE INR 1.1 [facility] DEPARTMENT OF Comment: PATHOLOGY AND The International Normalized GENOMIC MEDICINE Ratio (INR) is a therapeutic monitoring tool for patients who are stable on oral anticoagulant therapy. An INR of 2.0-3.0 is suggested for deep vein thrombosis/pulmonary embolism. Specimen Blood Performing Organization Address City/State/Zipcode Phone Number [facility] DEPARTMENT OF [address] [place] [address] PATHOLOGY AND GENOMIC MEDICINE * Comprehensive metabolic panel (02/07/2018 1:56 PM CDT) Only the most recent of 4 results within the time period is included. Sodium 137 135 - 148 mEq/L [facility] DEPARTMENT OF PATHOLOGY AND GENOMIC MEDICINE Potassium 4.4 3.5 - 5.0 mEq/L [facility] DEPARTMENT OF PATHOLOGY AND GENOMIC MEDICINE Chloride 97 (L) 98 - 112 mEq/L [facility] DEPARTMENT OF PATHOLOGY AND GENOMIC MEDICINE CO2 23 (L) 24 - 31 mEq/L [facility] DEPARTMENT OF PATHOLOGY AND GENOMIC MEDICINE Anion gap 17@ANIO (H) 7 - 15 mEq/L [facility] DEPARTMENT OF PATHOLOGY AND GENOMIC MEDICINE BUN 15 8 - 23 mg/dL [facility] DEPARTMENT OF PATHOLOGY AND GENOMIC MEDICINE Creatinine 0.7 0.7 - 1.2 mg/dL [facility] DEPARTMENT OF PATHOLOGY AND GENOMIC MEDICINE Glucose 189 (H) 65 - 99 mg/dL [facility] DEPARTMENT OF PATHOLOGY AND GENOMIC MEDICINE Calcium 9.4 8.8 - 10.2 mg/dL [facility] DEPARTMENT OF PATHOLOGY AND GENOMIC MEDICINE Protein 7.2 6.3 - 8.3 g/dL [facility] DEPARTMENT OF Comment: PATHOLOGY AND [place] GENOMIC MEDICINE 4.6-7.0 g/dL 1 week 4.4-7.6 g/dL 7 months-1year 5.1-7.3 g/dL 1-2 years5.6-7 .5 g/dL >3 years6.0-8 .0 g/dL 18-150 6.3-8.3 g/dL Albumin 3.5 3.5 - 5.0 g/dL [facility] DEPARTMENT OF PATHOLOGY AND GENOMIC MEDICINE A/G ratio 0.9 0.7 - 3.8 [facility] DEPARTMENT OF PATHOLOGY AND GENOMIC MEDICINE Alkaline phosphatase 102 40 - 129 U/L [facility] DEPARTMENT OF PATHOLOGY AND GENOMIC MEDICINE AST 23 10 - 50 U/L [facility] DEPARTMENT OF PATHOLOGY AND GENOMIC MEDICINE ALT 22 5 - 50 U/L [facility] DEPARTMENT OF PATHOLOGY AND GENOMIC MEDICINE Total bilirubin 0.3 0.0 - 1.2 mg/dL [facility] DEPARTMENT OF PATHOLOGY AND GENOMIC MEDICINE Specimen Plasma specimen Performing Organization Address [facility]ercone Phone Number [facility] DEPARTMENT [address] [address] PATHOLOGY AND GENOMIC MEDICINE * XR Pelvis 1 Or 2 Vw (02/07/2018 1:45 PM CDT) Narrative Performed At EXAMINATION: XR PELVIS 1 OR 2 VW [facility] INDICATION: fall at 31m this morningr o trauma COMPARISON: None IMPRESSION: A single frontal view of the pelvis was obtained. Limited evaluation of the sacrum and pubic body secondary to large amount of stool in the rectosigmoid. No visible acute fracture. [facility]-[id number] Procedure Note Interface, Radiology Results Incoming - 02/07/2018 2:19 PM CDT EXAMINATION: XR PELVIS 1 OR 2 VW INDICATION: fall at 31m this morning r o trauma COMPARISON: None IMPRESSION: A single frontal view of the pelvis was obtained. Limited evaluation of the sacrum and pubic body secondary to large amount of stool in the rectosigmoid. No visible acute fracture. [facility]-[id number] Performing Organization Address [facility] [facility] Phone Number [facility] [address] [place] [address] * XR Hip 2-3 View Left (02/07/2018 1:45 PM CDT) Narrative Performed At EXAMINATION:XR HIP 2-3 VIEWS LEFT [facility] CLINICAL HISTORY:fall at 31m this morningr o trauma COMPARISON:None. IMPRESSION: 1.The left hip is in normal anatomic alignment. There is no evidence of fracture or dislocation. 2.No radiopaque foreign bodies are seen within the soft tissues. [facility]-[id number] Procedure Note Interface, Radiology Results Incoming - 02/07/2018 1:53 PM CDT EXAMINATION: XR HIP 2-3 VIEWS LEFT CLINICAL HISTORY: fall at 31m this morning r o trauma COMPARISON: None. IMPRESSION: 1. The left hip is in normal anatomic alignment. There is no evidence of fracture or dislocation. 2. No radiopaque foreign bodies are seen within the soft tissues. [id number] Performing Organization Address City/State/Zipcode Phone Number BARBARA JACKSON [address] [place] [address] * EMG General Request (01/07/2018 1:30 PM CDT) Impressions Performed At Mr. Alvarez complains of lower left abdominal pain extending to his left thigh.Mr. Alvarez has diabetes. Mr. Alvarez had an electrodiagnostic study on January 03, 2018 that suggested bilateral L5 compromise, more severe and with an acute component on the left, associated with axonal sensory-motor neuropathy. Mr. Alvarez is now being reevaluated for assessment of left femoral nerve compromise. 1) Femoral motor latencies and amplitudes are bilaterally normal. 2) Saphenous and lateral femoral cutaneous sensory responses are bilaterally absent. 3) Intramuscular recordings of the left leg suggests mild denervation as noted above. The study does not electrodiagnostically suggest left femoral nerve compromise but does suggest bilateral sensory nerve compromise as noted above (e.g., saphenous sensory nerve is an extension of femoral nerve and saphenous sensory responses are bilaterally absent; lateral femoral cutaneous sensory nerve is also bilaterally absent). The study does not exclude bilateral patchy lumbar plexitis, which can occur in diabetes. Ventura Ozuna M.D. Narrative Performed At NERVE CONDUCTION AND ELECTROMYOGRAPHY REPORT Neurological [place], [facility] Medicine [facility]th [facility]; [place], [place] [address]; Name: Vu Alvarez(F 1210) Date of Procedure: January 07, 2018 Location: Sex: Male Date of :46 Referring Physician: Saran Grimes M.D.FAX: Nerve Conduction(Latencies in msec, Amplitudes uV, Distance cm, Velocity M/Sec) Right Motor Nerves Dist. Lat. Prox lat. D. amp. P. Amp.Dist. Velocity Right Femoral5.54.1 Right Sensory Nerves Dist. Lat. Prox lat. Dist. amp. Prox Amp. Distance Velocity Right Exslvfeetmxhdgp01.0 Right Lat. Fem, Cut. kuhtbf29.0 Left Motor Nerves Dist. Lat. Prox lat. D. amp. P. Amp.Dist. Velocity Left Femoral5.05.5 Left Sensory Nerves Dist. Lat. Prox lat. Dist. amp. Prox Amp. Distance Velocity Left Vyplhajjjnzbysv81.0 Left Lat. Fem. Cut. kaxsor51.0 Electromyography (Motor Unit in mV; H=High; L=Low; P=Polyphasic; NS=Non-specific) Left LegFibs. Pos. Waves Fasc. PolyphasiaMotor UnitsRecruitment Iliopsoaswnl wnlwnl wnlwnlwnl Vas. Medialiswnl wnlwnl 20HPwnlNS Vas. Lateraliswnl wnlwnl 20HPwnlNS Add. Magnuswnl wnlwnl 20HPwnlNS * EMG General Request (01/03/2018 11:22 AM CDT) Impressions Performed At Mr. Alvarez complains of lumbar pain extending to his left leg, weakness in his left leg, states that he has undergone lumbar surgery (level?), has diabetes and is being evaluated for neuropathy and lumbar radiculopathy. 1) Peroneal motor latencies are bilaterally delayed with slighlty slowed velocities and small amplitudes. 2) Tibial motor latencies are bilaterally borderline normal with slowed velociteis and normal amplitudes. 3) Right peroneal and bilateral tibial F Wave responses are delayed; left peroneal F Wave responses are absent. 4) Sural and superficial peroneal sensory responses are bilaterally absent. 5) Bilateral H Reflex Responses are equal with very small amplitudes. 6) Intramuscular recordings of the legs suggest chronic bilateral L5 denervation (left more than right) associated with a mild acute component on the left, all as noted above. 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 Ventura Ozuna M.D. Narrative Performed At NERVE CONDUCTION AND ELECTROMYOGRAPHY REPORT Neurological [place], [facility] [place] [facility] of Medicine [facility]; [place], [place] [address]; Name: Vu Alvarez(F 1210) Date of Procedure: January 03, 2018 Location: Sex: Male Date of :46 Referring Physician: Saran Grimes M.D.FAX: Patient is 5 10 ; 201 lbs.; RL 29.9 C; LL 29.8 C Nerve Conduction(Latencies in msec, Amplitudes uV, Distance cm, Velocity M/Sec) Right Motor Nerves Dist. Lat. Prox lat. D. amp. P. Amp.Dist. Velocity Right Peroneal EDB 5.814.31.1 1.033.0 38.8 Right Tibial5.015.37.3 6.136.5 35.6 Right Peroneal F Wave 58.8 Right Tibial F Wave 57.5 Right Sensory Nerves Dist. Lat. Prox lat. Dist. amp. Prox Amp. Distance Velocity Right Gjafjprmzua20.0 Right Superficial Peroneal swhzez33.0 Left Motor Nerves Dist. Lat. Prox lat. D. amp. P. Amp.Dist. Velocity Left Peroneal EDB 5.515.11.6 1.333.5 34.9 Left Tibial4.816.16.4 5.336.3 32.2 Left Peroneal F Wave absent Left Tibial F Wave 58.7 Left Sensory Nerves Dist. Lat. Prox lat. Dist. amp. Prox Amp. Distance Velocity Left Dmsbzydnuwc74.0 Left Superficial Peroneal vjhgxi51.0 Right Soleus (H Reflex Response Latency): 39.8 msec (very small amplitude) Left Soleus (H Reflex Response Latency):38.8 msec (very small amplitude) Electromyography (Motor Unit in mV; H=High; L=Low; P=Polyphasic; NS=Non-specific) Right LegFibs. Pos. Waves Fasc. PolyphasiaMotor UnitsRecruitment Vas. Medialiswnl wnlwnl 20HPwnlNS Ant. Tibialiswnl wnlwnl 30HPwnl-1 Peroneus Longus wnl wnlwnl 30HPwnl-1 Gastronemiuswnl wnlwnl wnlwnlwnl Ext. Dig. Brevis wnl wnlwnl 30HPwnl-2 Left LegFibs. Pos. Waves Fasc. PolyphasiaMotor UnitsRecruitment Vas. Medialiswnl wnlwnl 20HPwnlNS Ant. TibialisR Rwnl 50HPwnl-2 Peroneus Longus R Rwnl 50HPwnl-2 Gastronemiuswnl wnlwnl wnlwnlNS Ext. Dig. Brevis wnl wnlwnl 50HPwnl-2 * Phosphorus level (01/02/2018 4:00 AM CDT) Only the most recent of 2 results within the time period is included. Phosphorus 3.8 2.4 - 4.5 mg/dL [facility] DEPARTMENT OF PATHOLOGY AND GENOMIC MEDICINE Specimen Plasma specimen Performing Organization Address City/State/Zipcode Phone Number [facility] DEPARTMENT OF [address] [place] [address] PATHOLOGY AND GENOMIC MEDICINE * Urinalysis screen and microscopy, with reflex to culture (12/31/2017 10:52 PM CDT) Only the most recent of 3 results within the time period is included. Specimen site Catheterized [facility] DEPARTMENT OF PATHOLOGY AND GENOMIC MEDICINE Color, UA Straw [facility] DEPARTMENT OF PATHOLOGY AND GENOMIC MEDICINE Appearance, UA Clear [facility] DEPARTMENT OF PATHOLOGY AND GENOMIC MEDICINE Specific gravity, UA 1.028 1.001 - 1.035 [facility] OF PATHOLOGY AND GENOMIC MEDICINE pH, UA 6.0 5.0 - 8.5 [facility] OF PATHOLOGY AND GENOMIC MEDICINE Protein, UA 1+ (A) Negative [facility] OF PATHOLOGY AND GENOMIC MEDICINE Glucose, UA 3+ (A) Negative [facility] OF PATHOLOGY AND GENOMIC MEDICINE Ketones, UA Trace (A) Negative [facility] DE[facility] OF PATHOLOGY AND GENOMIC MEDICINE Bilirubin, UA Negative Negative [facility] DEPARTMENT OF PATHOLOGY AND GENOMIC MEDICINE Blood, UA Large (A) Negative [facility] DE[facility]MENT OF PATHOLOGY AND GENOMIC MEDICINE Nitrite, UA Negative Negative [facility] DE[facility] OF PATHOLOGY AND GENOMIC MEDICINE Urobilinogen, UA <2.0 <2.0 [facility] OF PATHOLOGY AND GENOMIC MEDICINE Leukocyte esterase, UA Trace (A) Negative [facility]PART[facility] OF PATHOLOGY AND GENOMIC MEDICINE Epithelial cells, UA <1 /HPF [facility] OF PATHOLOGY AND GENOMIC MEDICINE WBC, UA 2 (H) 0 - 1 /HPF [facility] OF PATHOLOGY AND GENOMIC MEDICINE RBC, UA 102 (H) 0 - 5 /HPF [facility] OF PATHOLOGY AND GENOMIC MEDICINE Bacteria, UA None seen None seen [facility]MENT OF PATHOLOGY AND GENOMIC MEDICINE Yeast, UA None seen [facility]MENT OF PATHOLOGY AND GENOMIC MEDICINE Yeast with pseudohyphae, None seen [facility] UA PATHOLOGY AND GENOMIC MEDICINE Calcium oxalate crystals, Few [facility] DE[facility] OF UA PATHOLOGY AND GENOMIC MEDICINE Specimen Urine Performing Organization Address City/[facility] Phone Number [facility] DEPARTMENT OF [address] [place] [address] PATHOLOGY AND GENOMIC MEDICINE * Gram stain (12/31/2017 10:52 PM CDT) Only the most recent of 2 results within the time period is included. Gram stain result Rare WBC's [facility] DEPARTMENT OF No organisms seen PATHOLOGY AND Comment: GENOMIC MEDICINE Specimen Information Specimen Source: Urine Specimen Site: Catheterized Specimen Urine - Catheterized Performing Organization Address City/[facility] Phone Number [facility] DEPARTMENT OF [address] [place] [address] PATHOLOGY AND GENOMIC MEDICINE * Urine culture (12/31/2017 10:52 PM CDT) Only the most recent of 3 results within the time period is included. Urine culture isolate No growth after 1 day. [facility] DEPARTMENT OF Comment: PATHOLOGY AND Specimen Information GENOMIC MEDICINE Specimen Source: Urine Specimen Site: Catheterized Specimen Urine - Catheterized Performing Organization Address City/[facility] Phone Number [facility] DEPARTMENT OF [address] [place] [address] PATHOLOGY AND GENOMIC MEDICINE * Type and screen (12/31/2017 10:10 PM CDT) ABO grouping O [facility] DEPARTMENT OF PATHOLOGY AND GENOMIC MEDICINE Rh type POS [facility] DEPARTMENT OF PATHOLOGY AND GENOMIC MEDICINE Antibody screen (gel) NEG [facility] DEPARTMENT OF PATHOLOGY AND GENOMIC MEDICINE Specimen Blood Performing Organization Address [facility] Phone Number [facility] DEPARTMENT OF [address] [place] [address] PATHOLOGY AND GENOMIC MEDICINE * US Renal (12/31/2017 8:20 PM CDT) Only the most recent of 2 results within the time period is included. Narrative Performed At EXAMINATION:US RENAL [facility] CLINICAL HISTORY:hematuria COMPARISON:None. FINDINGS: Right kidney: The right kidney is normal in size and echogenicity. There is no evidence of mass, calculi, or hydronephrosis. The right kidney measures 10.4 x 6.3 x 5.0 cm Left kidney: Left kidney is normal in size and echogenicity. There is no evidence of mass, calculi, or hydronephrosis. The left kidney measures 11.8 x 6.4 x 5.0 cm The urinary bladder is unremarkable. IMPRESSION: Normal renal ultrasound examination. [facility]-[id number] Procedure Note Hm Interface, Radiology Results Incoming - 12/31/2017 9:33 PM CDT EXAMINATION: US RENAL CLINICAL HISTORY: hematuria COMPARISON: None. FINDINGS: Right kidney: The right kidney is normal in size and echogenicity. There is no evidence of mass, calculi, or hydronephrosis. The right kidney measures 10.4 x 6.3 x 5.0 cm Left kidney: Left kidney is normal in size and echogenicity. There is no evidence of mass, calculi, or hydronephrosis. The left kidney measures 11.8 x 6.4 x 5.0 cm The urinary bladder is unremarkable. IMPRESSION: Normal renal ultrasound examination. [facility]-[id number] Performing Organization Address [facility] [place] [address] * Magnesium level (12/31/2017 6:57 PM CDT) Magnesium 2.0 1.6 - 2.4 mg/dL [facility] DEPARTMENT OF PATHOLOGY AND GENOMIC MEDICINE Specimen Plasma specimen Performing Organization Address [facility] Phone Number [facility] [place] [address] PATHOLOGY AND GENOMIC MEDICINE * Lactic acid level, SEPSIS - Now and repeat 2x every 3 hours (12/29/2017 7:30 PM CDT) Only the most recent of 4 results within the time period is included. Lactic acid 1.5 0.5 - 2.2 mmol/L [facility] DEPARTMENT OF PATHOLOGY AND GENOMIC MEDICINE Specimen Blood Performing Organization Address [facility] [place] [address] PATHOLOGY AND [facility] MED[facility]INE * CT Abdomen Pelvis W Contrast (12/29/2017 5:19 PM CDT) Narrative Performed At EXAMINATION:CT ABDOMEN PELVIS W CONTRAST [facility] CLINICAL HISTORY:check colitis COMPARISON:December 2017. TECHNIQUE: Multiple axial CT images of the Abdomen and pelvis were obtainedWith IV contrast Oral contrast was administered. . Sagittal and coronal reconstructions were done. CT imaging was performed with iterative reconstruction technique and/or automated exposure control to reduce radiation dose. FINDINGS: HEPATOBILIARY:No focal hepatic lesions. No biliary ductal dilation. GALLBLADDER: Cholelithiasis without signs of cholecystitis. SPLEEN:No splenomegaly. PANCREAS:No focal masses or ductal dilation. ADRENALS:No adrenal nodules. KIDNEYS:No hydronephrosis, stones or solid masses. PERITONEUM/RETROPERITONEUM:No free air or fluid. No lymphadenopathy. ABDOMINAL AORTA/IVC: No aneurysm or dissection. GI TRACT:Visualized portions of the bowel demonstrate no distention or wall thickening. The appendix is normal. There are no signs of diverticulitis. A moderate amount of stool present within the colon. PELVIC ORGANS/BLADDER:The bladder is decompressed by England catheter. The prostate gland is approximately 5.4 cm in diameter. BONES AND SOFT TISSUES:Unremarkable. VISUALIZED LOWER CHEST: No acute abnormality. Stable subcentimeter pulmonary nodule in the left lung base. IMPRESSION: No acute abnormality. [id number] Procedure Note Interface, Radiology Results Incoming - 12/29/2017 5:29 PM CDT EXAMINATION: CT ABDOMEN PELVIS W CONTRAST CLINICAL HISTORY: check colitis COMPARISON: December 2017. TECHNIQUE: Multiple axial CT images of the Abdomen and pelvis were obtained With IV contrast Oral contrast was administered. . Sagittal and coronal reconstructions were done. CT imaging was performed with iterative reconstruction technique and/or automated exposure control to reduce radiation dose. FINDINGS: HEPATOBILIARY: No focal hepatic lesions. No biliary ductal dilation. GALLBLADDER: Cholelithiasis without signs of cholecystitis. SPLEEN: No splenomegaly. PANCREAS: No focal masses or ductal dilation. ADRENALS: No adrenal nodules. KIDNEYS: No hydronephrosis, stones or solid masses. PERITONEUM/RETROPERITONEUM: No free air or fluid. No lymphadenopathy. ABDOMINAL AORTA/IVC: No aneurysm or dissection. GI TRACT: Visualized portions of the bowel demonstrate no distention or wall thickening. The appendix is normal. There are no signs of diverticulitis. A moderate amount of stool present within the colon. PELVIC ORGANS/BLADDER: The bladder is decompressed by England catheter. The prostate gland is approximately 5.4 cm in diameter. BONES AND SOFT TISSUES: Unremarkable. VISUALIZED LOWER CHEST: No acute abnormality. Stable subcentimeter pulmonary nodule in the left lung base. IMPRESSION: No acute abnormality. [id number] Performing Organization Address City/State/Zipcode Phone Number [facility] [address] [place] [address] * ECG ED Preliminary Interpretation - NOT AN ORDER (12/29/2017 3:59 PM CDT) Narrative Performed At Dilia Nelson MD 12/30/2017 10:44 AM ECG ED Preliminary Interpretation - Not an Order Performed by: DILIA NELSON Authorized by: DILIA NELSON ECG reviewed by ED Physician in the absence of a housing assistant: yes Previous ECG: Previous ECG:Unavailable Interpretation: Interpretation: non-specific Rate: ECG rate:77 ECG rate assessment: normal Rhythm: Rhythm: sinus rhythm Ectopy: Ectopy: none QRS: QRS axis:Normal QRS intervals:Normal Conduction: Conduction: normal ST segments: ST segments:Normal T waves: T waves: non-specific * Lipase level (12/29/2017 3:50 PM CDT) Only the most recent of 3 results within the time period is included. Lipase 31 13 - 60 U/L [facility] DEPARTMENT OF PATHOLOGY AND GENOMIC MEDICINE Specimen Plasma specimen Performing Organization Address City/[facility] [place] [address] PATHOLOGY AND GENOMIC MEDICINE * Lactic acid level (12/29/2017 3:50 PM CDT) Lactic acid 2.7 (H) 0.5 - 2.2 mmol/L [facility] DEPARTMENT OF PATHOLOGY AND GENOMIC MEDICINE Specimen Plasma specimen Performing Organization Address [facility] Phone Number [facility] [place] [address] PATHOLOGY AND [place] MEDICINE * MRI Lumbar Spine Wo Contrast (12/21/2017 10:05 PM CDT) Only the most recent of 2 results within the time period is included. Narrative Performed At [facility] EXAMINATION:MRI LUMBAR SPINE WO CONTRAST CLINICAL HISTORY:L S-spine stenosis, new osnet back pain post lmainectomy 4 weeks ago COMPARISON:None. TECHNIQUE: Multiplanar MRI imaging withoutIV Gadolinium was performed. IMPRESSION: Postoperative changes with posterior fusion with pedicle screws and interlocking rods extending from L2 to L3 levels as well as the posterior Shanks rods extending from L3 to S1 level. There is extensive susceptibility artifact produced by the surgical hardware which limits the evaluation of the lumbar spine canal and neural foramina. The lumbar spine alignment is unremarkable. Within the limits of this study there appears to be no significant canal stenosis at the recent posterior fusion and laminectomy at L2-L3 level and interval improvement of the previously identified canal stenosis. However if clinically warranted evaluation with lumbar myelograms recommended. [facility]-[id number] Procedure Note Hm Interface, Radiology Results Incoming - 12/21/2017 11:21 PM CDT EXAMINATION: MRI LUMBAR SPINE WO CONTRAST CLINICAL HISTORY: L S-spine stenosis, new osnet back pain post lmainectomy 4 weeks ago COMPARISON: None. TECHNIQUE: Multiplanar MRI imaging without IV Gadolinium was performed. IMPRESSION: Postoperative changes with posterior fusion with pedicle screws and interlocking rods extending from L2 to L3 levels as well as the posterior Shanks rods extending from L3 to S1 level. There is extensive susceptibility artifact produced by the surgical hardware which limits the evaluation of the lumbar spine canal and neural foramina. The lumbar spine alignment is unremarkable. Within the limits of this study there appears to be no significant canal stenosis at the recent posterior fusion and laminectomy at L2-L3 level and interval improvement of the previously identified canal stenosis. However if clinically warranted evaluation with lumbar myelograms recommended. [facility]-[id number] Performing Organization Address [facility] Phone Number [facility] [address] [place] [address] * XR Knee 3 Vw Right (12/21/2017 4:42 PM CDT) Narrative Performed At EXAM:XR KNEE 3 VW RIGHT [facility] CLINICAL:Knee traumatenderness or effusioncan walkinitial exam COMPARISON:None. IMPRESSION: 1.No acute fracture or dislocation. 2.Medial and lateral compartment chondrocalcinosis. 3.Mild degenerative osteoarthrosis changes most prominent in the medial compartment. 4.Small superior patellar spur. 5.No significant knee joint effusion. [id number] Procedure Note Interface, Radiology Results Incoming - 12/21/2017 5:16 PM CDT EXAM: XR KNEE 3 VW RIGHT CLINICAL: Knee trauma tenderness or effusion can walk initial exam COMPARISON: None. IMPRESSION: 1. No acute fracture or dislocation. 2. Medial and lateral compartment chondrocalcinosis. 3. Mild degenerative osteoarthrosis changes most prominent in the medial compartment. 4. Small superior patellar spur. 5. No significant knee joint effusion. [facility]-[id number] Performing Organization Address [facility] Phone Number [facility] [address] [place] [address] * XR Elbow 3+ Vw Left (12/21/2017 4:41 PM CDT) Narrative Performed At EXAMINATION:XR ELBOW 3VW LEFT [facility] CLINICAL HISTORY:JOINT PAINELBOW COMPARISON:None. IMPRESSION: TECHNIQUE: AP, lateral, and oblique left elbow radiographs are reviewed. There is no fracture, subluxation, joint space abnormality, focal bone lesion, or soft tissue abnormality. [facility]-[id number] Procedure Note Interface, Radiology Results Incoming - 12/21/2017 5:26 PM CDT EXAMINATION: XR ELBOW 3 VW LEFT CLINICAL HISTORY: JOINT PAIN ELBOW COMPARISON: None. IMPRESSION: TECHNIQUE: AP, lateral, and oblique left elbow radiographs are reviewed. There is no fracture, subluxation, joint space abnormality, focal bone lesion, or soft tissue abnormality. [facility]-[id number] Performing Organization Address City/State/Zipcode Phone Number [facility] [address] [place] [address] * CT Head Wo Contrast (12/21/2017 5:07 AM CDT) Narrative Performed At EXAMINATION: CT HEAD WO CONTRAST [facility] CLINICAL HISTORY: Head traumano neuro declinefollow up, s p fall COMPARISON:None TECHNIQUE: Noncontrast enhanced images of the brain were obtained from the skull base to the vertex. Both soft tissue and bone reconstruction algorithms were performed. CT imaging was performed with iterative reconstruction technique and/or automated exposure control to reduce radiation dose. IMPRESSION: No intracranial hemorrhage, mass, mass effect, or herniation. No acute osseous abnormalities. Paranasal sinuses demonstrate mild mucosal thickening of ethmoid air cells. Age-related volume loss is seen as characterized by prominence of cerebral sulci and ventricular systems. Periventricular and subcortical white matter hypodensities are seen, compatible with sequelae of chronic small vessel ischemic disease. The size of the ventricular system is greater than expected for the volume loss seen, and consider normal pressure hydrocephalus. Moderate subcutaneous hematoma is seen of left supraorbital region. CONCLUSION: Moderate left supraorbital subcutaneous hematoma. No acute intracranial abnormalities. Chronic age-related changes and sequelae of chronic small vessel ischemic disease. The size of the ventricular system is greater than expected for the volume loss seen, and consider normal pressure hydrocephalus. [facility]-[id number] Procedure Note Interface, Radiology Results Incoming - 12/21/2017 5:30 AM CDT EXAMINATION: CT HEAD WO CONTRAST CLINICAL HISTORY: Head trauma no neuro decline follow up, s p fall COMPARISON: None TECHNIQUE: Noncontrast enhanced images of the brain were obtained from the skull base to the vertex. Both soft tissue and bone reconstruction algorithms were performed. CT imaging was performed with iterative reconstruction technique and/or automated exposure control to reduce radiation dose. IMPRESSION: No intracranial hemorrhage, mass, mass effect, or herniation. No acute osseous abnormalities. Paranasal sinuses demonstrate mild mucosal thickening of ethmoid air cells. Age-related volume loss is seen as characterized by prominence of cerebral sulci and ventricular systems. Periventricular and subcortical white matter hypodensities are seen, compatible with sequelae of chronic small vessel ischemic disease. The size of the ventricular system is greater than expected for the volume loss seen, and consider normal pressure hydrocephalus. Moderate subcutaneous hematoma is seen of left supraorbital region. CONCLUSION: Moderate left supraorbital subcutaneous hematoma. No acute intracranial abnormalities. Chronic age-related changes and sequelae of chronic small vessel ischemic disease. The size of the ventricular system is greater than expected for the volume loss seen, and consider normal pressure hydrocephalus. [id number] Performing Organization Address [facility] Phone Number [employer] [address] [place] [address] * XR Abdomen 1 Vw (12/20/2017 9:41 PM CDT) Narrative Performed At PROCEDURE:[facility] CLINICAL HISTORY:Colitis, Pain COMPARISON:None. TECHNIQUE: A single view of the abdomen was performed in the AP supine projection. FINDINGS: No indirect evidence of free air is seen.. No distended loops of small or large bowel are identified. No radiopaque calculus is identified in the abdomen. Multiple phleboliths are demonstrated in the pelvis. The patient is had a spinal fusion. IMPRESSION: Nonspecific bowel gas pattern. [id number] . Procedure Note [facility], Radiology Results Incoming - 12/20/2017 10:08 PM CDT PROCEDURE: XR ABDOMEN 1 VW CLINICAL HISTORY: Colitis, Pain COMPARISON: None. TECHNIQUE: A single view of the abdomen was performed in the AP supine projection. FINDINGS: No indirect evidence of free air is seen.. No distended loops of small or large bowel are identified. No radiopaque calculus is identified in the abdomen. Multiple phleboliths are demonstrated in the pelvis. The patient is had a spinal fusion. IMPRESSION: Nonspecific bowel gas pattern. [id number] . Performing Organization Address [facility] CenterLight[facility] Gamingne Phone Number [employer] [address] [place] [address] * NM Hepatobiliary (HIDA Scan) (12/20/2017 7:19 PM CDT) Narrative Performed At Procedure:[place] HEPATOBILIARY (HIDA SCAN) [facility] Clinical History:Cholelithiasis, Gall bladder wall thickening. Technique: The patient was injected with 4 mCi of [id number] intravenously, followed by dynamic imaging of the abdomen in the anterior projection for 1 hour. Findings: There is normal uptake of tracer by the liver with normal excretion into the biliary tree. Tracer proceeds normally into the small bowel. No activity enters the gallbladder during the first hour of imaging, possibly secondary to use of morphine earlier today. Therefore, delayed imaging was performed for an additional 45 minutes, which revealed prompt filling of the gallbladder. Impression: No evidence of acute cholecystitis or common bile duct obstruction. [id number] Procedure Note [facility], Radiology Results Incoming - 12/20/2017 7:24 PM CDT Procedure: [place] HEPATOBILIARY (HIDA SCAN) Clinical History: Cholelithiasis, Gall bladder wall thickening. Technique: The patient was injected with 4 mCi of [id number] intravenously, followed by dynamic imaging of the abdomen in the anterior projection for 1 hour. Findings: There is normal uptake of tracer by the liver with normal excretion into the biliary tree. Tracer proceeds normally into the small bowel. No activity enters the gallbladder during the first hour of imaging, possibly secondary to use of morphine earlier today. Therefore, delayed imaging was performed for an additional 45 minutes, which revealed prompt filling of the gallbladder. Impression: No evidence of acute cholecystitis or common bile duct obstruction. [id number] Performing Organization Address City/[facility]/Zipcode Phone Number [facility] [address] [place] [address] * Amylase level (12/20/2017 3:29 PM CDT) Amylase 35 28 - 100 U/L [facility] DEPARTMENT OF PATHOLOGY AND GENOMIC MEDICINE Specimen Plasma specimen Performing Organization Address [facility] Centercode Phone Number [facility] DEPARTMENT [address] [address] PATHOLOGY AND GENOMIC MEDICINE * Hepatic function panel (12/20/2017 3:29 PM CDT) Albumin 3.4 (L) 3.5 - 5.0 g/dL [facility] DEPARTMENT OF PATHOLOGY AND GENOMIC MEDICINE Total bilirubin <0.2 0.0 - 1.2 mg/dL [facility] DEPARTMENT OF PATHOLOGY AND GENOMIC MEDICINE Bilirubin direct <0.2 0.0 - 0.3 mg/dL [facility] DEPARTMENT OF PATHOLOGY AND GENOMIC MEDICINE Alkaline phosphatase 107 40 - 129 U/L [facility] DEPARTMENT OF PATHOLOGY AND GENOMIC MEDICINE Protein 7.4 6.3 - 8.3 g/dL [facility] DEPARTMENT OF Comment: PATHOLOGY AND [place] GENOMIC MEDICINE 4.6-7.0 g/dL 1 week 4.4-7.6 g/dL 7 months-1year 5.1-7.3 g/dL 1-2 years5.6-7 .5 g/dL >3 years6.0-8 .0 g/dL 18-150 6.3-8.3 g/dL ALT 25 5 - 50 U/L [facility] DEPARTMENT OF PATHOLOGY AND GENOMIC MEDICINE AST 28 10 - 50 U/L [facility] DEPARTMENT OF PATHOLOGY AND GENOMIC MEDICINE Specimen Plasma specimen Performing Organization Address City/[facility] Centercode Phone Number [place] [phone] [place] [address] PATHOLOGY AND GENOMIC MEDICINE * Hemoglobin A1c (12/19/2017 5:54 AM CDT) Hemoglobin A1C 6.2 (H) 4.0 - 5.6 % [facility] DEPARTMENT OF Comment: PATHOLOGY AND HbA1c cutoffs for diagnosing [facility] MEDICINE diabetes: 4.0% - 5.6%=normal 5.7% - 6.4%=increased risk for diabetes (prediabetes) >=6.5%=diabetes Goals for glycemic control (ADA 2016) < 7.0%Target for non adults with diabetes. More or less stringent targets may be appropriate for individual patients. <7.5% Target for Children and adolescents with type 1 diabetes. Specimen Blood Performing Organization Address City/[facility] Centercode Phone Number [facility] OF [address] [place] [address] PATHOLOGY AND GENOMIC MEDICINE * Lipid panel (12/19/2017 4:00 AM CDT) Cholesterol 153 <200 mg/dL [facility] DEPARTMENT OF PATHOLOGY AND GENOMIC MEDICINE Triglycerides 112 <150 mg/dL [facility] DEPARTMENT OF PATHOLOGY AND GENOMIC MEDICINE HDL cholesterol 39 (L) >40 mg/dL [facility] DEPARTMENT OF PATHOLOGY AND GENOMIC MEDICINE LDL cholesterol 106 (H)Comment: Result <100 mg/dL [facility] DEPARTMENT OF obtained by direct LDL PATHOLOGY AND measurement GENOMIC MEDICINE [facility] interpretation Comment: PATHOLOGY AND Total Cholesterol GENOMIC MEDICINE (mg/dL) <200 Desirable 200-239Borderline -high >=240High Triglycerides (mg/dL) <150 Normal 150-199Borderline -high 200-499High >=500Very high HDL Cholesterol (mg/dL) <40Low (male) <40Low (female) LDL Cholesterol (mg/dL) <100 Optimal 100-129Near or above optimal 130-159Borderline -high 160-189High >=190Very high Risk Catergories that modify LDL goals. Risk Catergories LDL goal (mg/dL) CHD and CHD risk equivalent<100 (10-year risk >20%) Multiple (2+) risk factors <130 (10-year risk=<20%) 0-1 risk factors <160 (<10-year risk) Defining levels of lipids in metabolic syndrome Triglycerides >=150 mg/dL HDL Cholesterol Men <40 mg/dL Women <40 mg/dL Non-HDL cholesterol is a second target for therapy in persons with high triglycerides (>=200 mg/dL) Specimen Plasma specimen Performing Organization Address City/State/Zipcode Phone Number [facility] DEPARTMENT OF [address] [place] [address] PATHOLOGY AND GENOMIC MEDICINE * US Abdomen Complete (12/18/2017 10:30 AM CDT) Narrative Performed At Examination: US ABDOMEN COMPLETE [facility] Clinical history: Renal Colic, abdominal painLLQ and renal colic Comparison: CT of the abdomen and pelvis dated 12/17/2017 Impression:Transverse and longitudinal sonographic images were obtained through the abdomen. 1.Cholelithiasis. Borderline gallbladder wall thickening. If there is clinical concern for acute cholecystitis, further evaluation with a nuclear medicine HIDA scan can be performed. The common ductis normal in caliber measuring up to 5 mm. 2.Diffuse fatty infiltration of the liver. No focal liver lesion can be visualized. The portal vein is patent with normal directionality of flow.The spleen is not enlarged. 3.The right kidney measures 10.6 and left kidney 12.1 cm in length. Please see separate renal ultrasound report for additional findings and details. 4.The visualized pancreas, abdominal aorta, and inferior vena cava are unremarkable. 5.There is no suspicious fluid. [id number] Procedure Note [facility], Radiology Results Incoming - 12/18/2017 11:18 AM CDT Examination: US ABDOMEN COMPLETE Clinical history: Renal Colic, abdominal pain LLQ and renal colic Comparison: CT of the abdomen and pelvis dated 12/17/2017 Impression: Transverse and longitudinal sonographic images were obtained through the abdomen. 1. Cholelithiasis. Borderline gallbladder wall thickening. If there is clinical concern for acute cholecystitis, further evaluation with a nuclear medicine HIDA scan can be performed. The common duct is normal in caliber measuring up to 5 mm. 2. Diffuse fatty infiltration of the liver. No focal liver lesion can be visualized. The portal vein is patent with normal directionality of flow. The spleen is not enlarged. 3. The right kidney measures 10.6 and left kidney 12.1 cm in length. Please see separate renal ultrasound report for additional findings and details. 4. The visualized pancreas, abdominal aorta, and inferior vena cava are unremarkable. 5. There is no suspicious fluid. [id number] Performing Organization Address City/[facility] Centercode Phone Number [facility] [address] [place] [address] * Prostate specific antigen (12/18/2017 4:00 AM CDT) PSA 2.2 0.0 - 4.0 ng/mL [facility] DEPARTMENT OF Comment: PATHOLOGY AND The AARON 8000 PSA immunoassay Eniram was used. Results obtained with different assay methods or kits should not be used interchangeably and may be different. Specimen Plasma specimen Performing Organization Address [facility] Centercode Phone Number [facility] DEPARTMENT OF [address] [place] [address] PATHOLOGY AND [place] MEDICINE * CT Abdomen Pelvis Wo Contrast (12/17/2017 8:22 PM CDT) Narrative Performed At EXAMINATION:CT ABDOMEN PELVIS WO CONTRAST [facility] CLINICAL HISTORY:Abd painunspecified TECHNIQUE:Multiple axial images of the abdomen and pelvis were obtained without intravenous administration of iodinated contrast. Sagittal and coronal computerized reformatted images were also obtained.All CT images were acquired using radiation dose lowering technique with automated exposure control and / or iterative reconstruction. COMPARISON:No IMPRESSION: ABDOMEN: Evaluation of solid abdominal organs is limited without IV contrast. 1. The LAD coronary artery is heavily calcified. Scarring and or atelectasis in the lung bases. 2.A subpleural 5 mm nodule in the left posterior costophrenic sulcus. Outpatient chest CT follow-up to assess for any other nodules is recommended, once acute issues have resolved. 3.Diverticulosis mostly in the distal colon, overall mild. 4.There is mild haziness surrounding the terminal ileum, series 2 image 83, indicative of a mild terminal ileitis. This is likely infectious, and it does not have the typical appearance of Crohn's disease, though follow-up to ensure resolution is recommended. 5.Borderline dilated small bowel in the left hemiabdomen is likely mild jejunal ileus. Bowel loops including visualized portions of the appendix otherwise grossly unremarkable contrast. 6.Layering stones in the gallbladder can be better assessed with ultrasound, if indicated. Mild fatty liver. 7.Pancreas atrophic, likely from senescence. Spleen, grossly unremarkable. Mild bilateral adrenal gland thickening without discrete mass. Calcified plaque in the abdominal aorta without AAA. Kidneys grossly unremarkable. PELVIS: 1. Postop or post inflammatory scarring in the abdominal pannus. No free fluid or definite lymphadenopathy detected in the abdomen or pelvis on this limited noncontrast study. 2.Prostate gland enlarged, correlation with PSA levels is advised. Seminal vesicles grossly unremarkable. Urinary bladder is distended arising out of the pelvic inlet. Patient may benefit from [place] catheter decompression if unable to void spontaneously. 3.Chronic calcific hamstring origin tendinitis bilaterally. Pedicle screws and fusion in the lumbar spine. Posterior decompression. SUMMARY: Mild terminal ileitis, and jejunal ileus. Follow-up to ensure resolution recommended. Cholelithiasis can be correlated with the site of abdominal pain, and further assessed by ultrasound, if indicated. Incidental left lung base nodule likely benign, though an outpatient chest CT is recommended once acute issues have resolved. Other incidental findings as above. [id number] Procedure Note [facility], Radiology Results Incoming - 12/17/2017 8:33 PM CDT EXAMINATION: CT ABDOMEN PELVIS WO CONTRAST CLINICAL HISTORY: Abd pain unspecified TECHNIQUE: Multiple axial images of the abdomen and pelvis were obtained without intravenous administration of iodinated contrast. Sagittal and coronal computerized reformatted images were also obtained. All CT images were acquired using radiation dose lowering technique with automated exposure control and / or iterative reconstruction. COMPARISON: No IMPRESSION: ABDOMEN: Evaluation of solid abdominal organs is limited without IV contrast. 1. The LAD coronary artery is heavily calcified. Scarring and or atelectasis in the lung bases. 2. A subpleural 5 mm nodule in the left posterior costophrenic sulcus. Outpatient chest CT follow-up to assess for any other nodules is recommended, once acute issues have resolved. 3. Diverticulosis mostly in the distal colon, overall mild. 4. There is mild haziness surrounding the terminal ileum, series 2 image 83, indicative of a mild terminal ileitis. This is likely infectious, and it does not have the typical appearance of Crohn's disease, though follow-up to ensure resolution is recommended. 5. Borderline dilated small bowel in the left hemiabdomen is likely mild jejunal ileus. Bowel loops including visualized portions of the appendix otherwise grossly unremarkable contrast. 6. Layering stones in the gallbladder can be better assessed with ultrasound, if indicated. Mild fatty liver. 7. Pancreas atrophic, likely from senescence. Spleen, grossly unremarkable. Mild bilateral adrenal gland thickening without discrete mass. Calcified plaque in the abdominal aorta without AAA. Kidneys grossly unremarkable. PELVIS: 1. Postop or post inflammatory scarring in the abdominal pannus. No free fluid or definite lymphadenopathy detected in the abdomen or pelvis on this limited noncontrast study. 2. Prostate gland enlarged, correlation with PSA levels is advised. Seminal vesicles grossly unremarkable. Urinary bladder is distended arising out of the pelvic inlet. Patient may benefit from [place] catheter decompression if unable to void spontaneously. 3. Chronic calcific hamstring origin tendinitis bilaterally. Pedicle screws and fusion in the lumbar spine. Posterior decompression. SUMMARY: Mild terminal ileitis, and jejunal ileus. Follow-up to ensure resolution recommended. Cholelithiasis can be correlated with the site of abdominal pain, and further assessed by ultrasound, if indicated. Incidental left lung base nodule likely benign, though an outpatient chest CT is recommended once acute issues have resolved. Other incidental findings as above. [id number] Performing Organization Address City/State/Zipcode Phone Number [facility] [address] [place] [address] after 07/24/2017 Insurance Payer Benefit Subscriber ID Type Phone Address Plan / Group MEDICARE MEDICARE xxxxxxxxxx Medicare [place] PART A [place] B AARP AARP xxxxxxxxxx Commercial SUPPLEMENT Advance Directives Patient has advance care planning documents, and code status on file. For more i nformation, please contact: Gerardo Buchanan [address] [place] [address] Date Inactivated Comments Code Status Date Activated 02/13/2018 8:43 PM Full Code 02/07/2018 7:34 PM Code Status decision reached by: Patient 02/07/2018 7:34 PM Full Code 02/07/2018 7:24 PM Code Status decision reached by: Patient 01/08/2018 9:35 PM Full Code 12/31/2017 6:56 PM Code Status decision reached by: Patient
--- OUTSIDE RECORDS SUMMARY | 2018-07-25 00:37 | XMS REPORT ---
Author Author Jose Alberto Holland Organization [employer] Address Unknown Phone Unavailable Care Team Providers Care Pediatric Speech Therapist Name Role Phone Jose Alberto Holland CP Unavailable Allergies, Adverse Reactions, Alerts Substance Reaction Event Type Soma rash Drug Allergy Encounters Encounter Location Date Unknown [facility] Feb 10, 2013 C D STRIPPER- FATIGUE [facility] Jan 17, 2013 cough [facility] Feb 13, 2013 Problems Problem Type Condition ICD-9 Code Onset Dates Condition Status Assessment Diabetes mellitus 250.00 Active Assessment Fatigue 780.79 Active Assessment Leg pain, bilateral 729.5 Active Medications Medication Code System Code Instructions Start Date End Date Status Dosage Novolin N [facility] [address]-40 100 UNIT/ML Subcutaneous AM and PM Active 23 units Metformin HCl [facility] [address]-66 500 MG Orally Twice a day Active 1 tablet with meals Simvastatin [facility] [address]-76 40 MG Orally Once a day Active 1 tablet in the evening Novolin R [facility] [address]-58 100 UNIT/ML Injection TID with meals Active 23 units Lisinopril [facility] [address]-81 10 MG Orally Once a day Active 1 tablet Social History Social History Element Qualifiers Date Reported Ethnicity . Status , Is serbian your primary language? Yes Jan 17, 2013 Where or with whom do you live ? . with spouse Jan 17, 2013 children . 2 Jan 17, 2013 Tobacco Use: . Are you a: never smoker Jan 17, 2013 Use of recreational / street drugs? . Answer: No Jan 17, 2013 Marital Status: . [place] Jan 17, 2013 Do you drink alcohol? . 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 [employer] Jan 17, 2013 Family history Qualifier Description Comment Date Reported Maternal Grandmother Comment not available Jan 17, 2013 Paternal Grandmother Comment not available Jan 17, 2013 Siblings alive diabetes mellitus, COPD Jan 17, 2013 Maternal Grandfather Comment not available Jan 17, 2013 Children alive hypertension Jan 17, 2013 Father colon cancer Jan 17, 2013 Paternal Grandfather Comment not available Jan 17, 2013 Mother lung cancer Jan 17, 2013 Vital Signs Date/Time: Jan 17, 2013 Weight 228 lbs Height 70 inches Temperature 99.0 F Cardiac Monitoring Heart Rate 72 Beats per Minute Blood Pressure Diastolic 78 mm Hg Blood Pressure Systolic 130 mm Hg Results CBC With Differential/Platelet Urine Culture, Routine Urinalysis, Routine TSH Hemoglobin A1c Comp. Metabolic Panel (14) PSA Total+ Free Summary Purpose [employer] Submission
--- OUTSIDE RECORDS SUMMARY | 2018-07-25 00:37 | XMS REPORT ---
Author Author Jose Alberto Holland Organization [employer] Address Unknown Phone Unavailable Care Team Providers Care Pattern Attendant Name Role Phone Jose Alberto Holland CP Unavailable Encounters Encounter Location Date Unknown [facility] Feb 10, 2013 Medications Medication Code System Code Instructions Start Date End Date Status Dosage Lisinopril [facility] [address]-25 10 mg Orally Once a day Active 1 tablet Simvastatin [facility] [address]-08 40 mg Orally Once a day Active 1 tablet Metformin HCl [facility] [address]-39 500 mg Orally Twice a day Active 2 tablet Social History Social History Element Qualifiers Date Reported Ethnicity . Status , Is bulgarian your primary language? 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
--- OUTSIDE RECORDS SUMMARY | 2018-07-25 00:37 | XMS REPORT | Continuity of Care Document ---
Author Author [facility] meena Organization Interface Address Unknown Phone Unavailable Problems Problem Status Onset Date Classification Date Reported Comments Source M48.061, M43.16 BACK PAIN Active 03/31/2018 [facility] M48.061, M43.16 Active 03/31/2018 [facility] M48.061, M43.16 LOW BACK PAIN Active 01/29/2018 [facility] STENOSIS Active 10/31/2017 [facility] M43.16, M48.061 Active 10/16/2017 [facility] MRSA culture positive(<span ID="[id number]">Confirmed</span>)<sup>2</sup> Active 06/18/2007 Problem 11/25/2017 from cellulitis in left forearm/elbow [facility] Leg pain Active Problem 02/03/2014 [facility] Hyperlipidemia Active Problem 02/03/2014 [facility] HTN Active Problem 02/03/2014 [facility] Fatigue Active Problem 02/03/2014 [facility] Cough Active Diagnosis 04/05/2013 [facility] Diabetes mellitus Active Problem 02/03/2014 [facility] Leg pain, bilateral Active Diagnosis 04/05/2013 [facility] Rib pain on left side Active Diagnosis 10/03/2013 [facility] Encounter for medication counseling Active Diagnosis 06/25/2013 [facility] Right ankle pain Active Diagnosis 06/25/2013 [facility] Depression Active Diagnosis 06/25/2013 [facility] Obesity Active Diagnosis 07/10/2013 [facility] Tachycardia Active Diagnosis 06/25/2013 [facility] Bronchitis Active Diagnosis 07/10/2013 [facility] Positive CARLITO Active Diagnosis 07/10/2013 [facility] DM - Diabetes mellitus Active Problem 10/27/2017 [facility] HTN - Hypertension Active Problem 11/25/2017 [facility] Asthma<sup>1</sup> Active Problem 11/25/2017 last attack 3 yrs ago. [facility] Depression Active Problem 11/25/2017 [facility] Acid reflux Active Problem 11/25/2017 [facility] Obesity Active Problem 11/25/2017 [facility] Paroxysmal atrial fibrillation Active Problem 11/25/[facility] DM , type 2(<span ID="[id number]">Confirmed</span>) Active Problem 11/25/[facility] Hepatitis C Resolved Problem 11/25/2017 [facility] SPONDYLOLISTHESIS, LUMBAR REGION Active [facility] SPINAL STENOSIS, LUMBAR REGION WITHOUT N Active [facility] Medications Medication Details Route Status Patient Instructions Ordering Provider Order Date Source tizanidine 4 MG Oral Capsule [Zanaflex] 4 mg=1 cap, PO, TID, # 40 cap, 0 Refill(s) Active 11/21/2017 [facility] Acetaminophen 325 MG / Hydrocodone Bitartrate 10 MG Oral Tablet [[place]t 10/325] 1-2 tab, PO, Q4-6H, PRN Pain, X 7 day, # 80 tab, 0 Refill(s) Active 11/21/2017 [facility] {21 (Methylprednisolone 4 MG Oral Tablet [Medrol]) } Pack [Medrol Dosepak] See Instructions, PO, Take by mouth as directed on label., # 1 Pack, 0 Refill(s) Active 11/21/2017 [facility] Docusate Sodium 100 MG Oral Capsule 100 mg=1 cap, PO, BID, # 30 cap, 0 Refill(s) Active 11/21/2017 [facility] Flomax 0.4 mg, 1 cap, Route: PO, Drug form: CAP, Daily, Dosing Weight 105.909, kg, Start date: 11/21/17 12:00:00 CDT, Stop date: 12/21/17 12:00:00 CDTNotes: (Same As: Flomax) "Do Not Crush" No Longer Active 11/21/2017 [facility] Acetaminophen 325 MG / Hydrocodone Bitartrate 10 MG Oral Tablet 1 tab, PO, Q6H, PRN Pain Score 4-6, # 60 tab, 0 Refill(s), given to patient Active 11/20/2017 [facility] Regular Insulin, Human 100 UNT/ML Injectable Solution 30 unit, SUB-Q, TID-Before Meals, 0 Refill(s) Active 11/20/[facility] insulin isophane (NPH) 100 units/mL human recombinant subcutaneous suspension 30 unit, SUB-Q, BID, 0 Refill(s) Active 11/20/2017 [facility] Omeprazole 20 mg, 1 cap, Route: PO, Drug form: DRC, Daily, Dosing Weight 105.909, kg, Start date: 11/20/17 9:00:00 CDT, Duration: 30 day, Stop date: 12/19/17 9:00:00 CDTNotes: Take 1 hour before or 2 hours after meal; Non-Formulary Drug "Do Not Crush" (Same as: Prilosec) No Longer Active 11/20/2017 [facility] sennosides, SKILLED NURSING 8.6 mg, 1 tab, Route: PO, Drug Form: TAB, Dosing Weight 105.909, kg, Daily, Start date: 11/20/17 9:00:00 CDT, Duration: 30 day, Stop date: 12/19/17 9:00:00 CDTNotes: (Same as: Senokot) No Longer Active 11/20/2017 [facility] Ramipril 5 mg, 1 cap, Route: PO, Drug form: CAP, Daily, Dosing Weight 105.909, kg, Start date: 11/20/17 9:00:00 CDT, Duration: 30 day, Stop date: 12/19/17 9:00:00 CDTNotes: (Same as:Altace) No Longer Active 11/20/2017 [facility] Milk of Magnesia 30 ml, Route: PO, Drug Form: SUSP, Dosing Weight 105.909, kg, Daily, until BM, Start date: 11/20/17 9:00:00 CDT, Duration: 30 day, Stop date: 12/19/17 9:00:00 CDTNotes: (Same as: Milk of Magnesia, MOM) No Longer Active 11/20/2017 [facility] Protonix 40 mg, 1 tab, Route: PO, Drug form: ECTAB, Daily, Start date: 11/20/17 9:00:00 CDT, Duration: 30 day, Stop date: 12/19/17 9:00:00 CDTNotes: Tablet should not be chewed or crushed. (Same as: Protonix) No Longer Active 11/20/2017 [facility] Flecainide 100 mg, 2 tab, Route: PO, Drug form: TAB, Q12H, Dosing Weight 105.909, kg, Start date: 11/19/17 21:00:00 CDT, Duration: 30 day, Stop date: 12/19/17 9:00:00 CDTNotes: (Same as: Tambocor) Inactive 11/20/2017 [facility] Flecainide 100mg Flecainide 100mg, 1 tab, Drug form: MISC, Route: PO, Q12H, 11/19/17 21:00:00 CDT, Duration: 30 day, Stop date: 12/19/17 9:00:00 CDT No Longer Active 11/20/2017 [facility] insulin regular 100 units/mL human recombinant 25 unit, 0.25 mL, Route: SUB-Q, Drug form: SOLN, ONCE, Start date: 11/19/17 18:25:00 CDT, Stop date: 11/19/17 18:25:00 CDTNotes: (Same as: Humulin R) Roll in palms of hands gently; Do not shake vigorously. "single patient use only" (Restricted to patients requiring a dose > 60 units) WASTE: F/P - Black; E - Municipal Trash Bin Stable for 28 days at room temperature Expires in days from Date Inactive 11/19/2017 [facility] Cefazolin 2 gm, 100 mL, Route: IVPB, Drug form: INJ, ABXQ8H, Dosing Weight 105.909, kg, Start date: 11/19/17 18:00:00 CDT, Duration: 3 doses or times, Stop date: 11/20/17 10:00:00 CDT, ABX Indication: Surgical ProphylaxisNotes: Same as: Ancef No Longer Active 11/19/2017 [facility] Novolin N 35 unit, 0.35 mL, Route: SUB-Q, Drug form: INJ, BID, Dosing Weight 105.909, kg, Start date: 11/19/17 17:00:00 CDT, Stop date: 12/19/17 9:00:00 CDTNotes: Roll in palms of hands gently; Do not shake jennifer rously. (Same as: Humulin N) Do not hold insulin without contacting prescriber WASTE: F/P - Black; E - Municipal Trash Bin Stable for 28 days at room temperature Expires in days from Date No Longer Active 11/19/2017 [facility] Docusate 100 mg, 1 cap, Route: PO, Drug form: CAP, BID, Dosing Weight 105.909, kg, Start date: 11/19/17 17:00:00 CDT, Duration: 30 day, Stop date: 12/19/17 9:00:00 CDTNotes: (Same as: Colace) (Do Not Crush) Inactive 11/19/2017 [facility] Docusate Sodium 100 MG Oral Capsule 100 mg, 1 cap, Route: PO, Drug form: CAP, BID, Dosing Weight 105.909, kg, Start date: 11/19/17 17:00:00 CDT, Duration: 30 day, Stop date: 12/19/17 9:00:00 CDTNotes: (Same as: Colace) (Do Not Crush) No Longer Active 11/19/2017 [facility] Zanaflex 2 mg, 0.5 tab, Route: PO, Drug form: TAB, Q8H, Dosing Weight 105.909, kg, Start date: 11/19/17 16:00:00 CDT, Duration: 30 day, Stop date: 12/19/17 8:00:00 CDTNotes: (Same As: Zanaflex) No Longer Active 11/19/2017 [facility] Dexamethasone 10 mg, 1 mL, Route: IVP, Drug form: INJ, Q8H, Dosing Weight 105.909, kg, Start date: 11/19/17 16:00:00 CDT, Duration: 2 day, Stop date: 11/21/17 8:00:00 CDTNotes: MEDICATION WASTE Product Siz e: 10 mg Product Wasted: ___ mg No Longer Active 11/19/2017 [facility] normal saline 0.9% IV 1,000 mL 1,000 mL, Rate: 75 ml/hr, Infuse over: 13.3 hr, Route: IV, Dosing Weight 105.909 kg, Total Volume: 1,000, Start date: 11/19/17 14:32:00 CDT, Duration: 30 day, Stop date: 12/19/17 14:31:00 CDT, 2.31, m2 No Longer Active 11/19/2017 [facility] Novolin R 33 unit, 0.33 mL, Route: SUB-Q, Drug form: SOLN, TID-Before Meals, Dosing Weight 105.909, kg, Start date: 11/19/17 11:30:00 CDT, Stop date: 12/19/17 7:30:00 CDTNotes: (Same as: Humulin R) Roll in palms of hands gently; Do not shake vigorously. "single patient use only" (Restricted to patients requiring a dose > 60 units) WASTE: F/P - Black; E - [employer] Trash Bin Stable for 28 days at room temperature Expires in days from Date No Longer Active 11/19/2017 [facility] Promethazine 6.25 mg, 0.25 mL, Route: IVPB, Drug form: INJ, ONCE, Dosing Weight 105.909, kg, PRN Nausea & Vomiting, Start date: 11/19/17 11:30:00 CDTNotes: Do not give IV push. (Same as: Phenergan) Inactive 11/19/2017 [facility] Meperidine 12.5 mg, 0.5 mL, Route: IVP, Drug form: INJ, Q30Min, Dosing Weight 105.909, kg, PRN Other -See Comment, For shivering, Start date: 11/19/17 11:30:00 CDT, Duration: 2 doses or times, Stop date: 11/19/17 22:00:00 CDTNotes: (Same as: Demerol) "Use Precaution in Elderly, Seizure disorders, and Renal impairment" Inactive 11/19/2017 [facility] Flumazenil 0.2 mg, 2 mL, Route: IVP, Drug form: INJ, PRN, Dosing Weight 105.909, kg, PRN Benzodiazepine Reversal, Initial dose, Start date: 11/19/17 11:30:00 CDT, Stop date: 11/19/17 22:00:00 CDTNotes: (Same as: Romazicon) Inactive 11/19/2017 [facility] Naloxone 0.4 mg, 1 mL, Route: IVP, Drug form: INJ, Q2MIN, Dosing Weight 105.909, kg, PRN Narcotic Reversal, Start date: 11/19/17 11:30:00 CDT, Duration: 8 doses or times, Stop date: 11/19/17 22:00:00 CDTNotes: Same as Narcan Inactive 11/19/2017 [facility] Hydromorphone 0.5 mg, 0.25 mL, Route: IVP, Drug form: INJ, Q5Min, Dosing Weight 105.909, kg, PRN Pain Score 7-10, Start date: 11/19/17 11:30:00 CDT, Duration: 4 doses or times, Stop date: 11/19/17 22:00:00 CDTNotes: Same as Dilaudid Inactive 11/19/2017 [facility] Acetaminophen 1,000 mg, 2 tab, Route: PO, Drug form: TAB, ONCE, Dosing Weight 105.909, kg, PRN Pain Score 1-3, Start date: 11/19/17 11:30:00 CDTNotes: Max acetaminophen 4000 mg/day (4 gm/day). (Same as: Tylenol Extra Strength) Inactive 11/19/2017 [facility] Morphine 2 mg, 0.2 mL, Route: IVP, Drug form: INJ, Q5Min, Dosing Weight 105.909, kg, PRN Pain Score 4-6, Start date: 11/19/17 11:30:00 CDT, Duration: 5 doses or times, Stop date: 11/19/17 22:00:00 CDTNotes: (Same as:MORPhine Sulfate) Inactive 11/19/2017 [facility] Hydralazine 10 mg, 0.5 mL, Route: IVP, Drug form: INJ, Q20Min, Dosing Weight 105.909, kg, PRN Elevated BP, Start date: 11/19/17 11:30:00 CDT, Duration: 2 doses or times, Stop date: 11/19/17 22:00:00 CDTNotes: (Same as: Apresoline) Push over 5 minutes Inactive 11/19/2017 [facility] Labetalol 10 mg, 2 mL, Route: IVP, Drug form: INJ, Q5Min, Dosing Weight 105.909, kg, PRN Elevated BP, Start date: 11/19/17 11:30:00 CDT, Duration: 5 doses or times, Stop date: 11/19/17 22:00:00 CDT Inactive 11/19/2017 [facility] glycopyrrolate (ANES) Route: IV, Drug form: INJ, ONCE, Stop date: 11/19/17 11:21:00 CDT Inactive 11/19/2017 [facility] neostigmine (ANES) Route: IV, Drug form: INJ, ONCE, Stop date: 11/19/17 11:21:00 CDT Inactive 11/19/2017 [facility] Hydromorphone 15 mg, 30 mL, Route: IV, Initial Loading Dose: 0.4mg, CONE CLEANER Dose: 0.3 mg, [employer]E [employer]ER Lockout: 15 minutes, Continuous Basal Rate: 0 mg, 4 Hour Limit (In MG): 7, Drug Form: INJ, Continuous, Start date: 11/19/17 11 :20:00 CDT, Duration: 30 day, Stop date: 12/19/17...Notes: (Same as: Dilaudid) conc=0.5 mg/ml Hydromorphone CONE CLEANER Dose: ;Delay: ;Basal: No Longer Active 11/19/2017 [facility] Naloxone 0.04 mg, 0.1 mL, Route: IVP, Drug form: INJ, Q2MIN, Dosing Weight 105.909, kg, PRN Narcotic Reversal, Start date: 11/19/17 11:20:00 CDT, Duration: 30 day, Stop date: 12/19/17 11:19:00 CDTNotes: Same as Narcan No Longer Active 11/19/2017 [facility] D5W 1/2NS + KCL 20mEq/L 1000ml (Premix) 1,000 mL 1,000 mL, Rate: 75 ml/hr, Infuse over: 13.3 hr, Route: IV, Dosing Weight 105.909 kg, Total Volume: 1,000, Start date: 11/19/17 11:20:00 CDT, Duration: 30 day, Stop date: 12/19/17 11:19:00 CDT, 2.31, g2Rpsqb: PREMIX IV - Do Not Alter WASTE: F/P - Sink; E - Municipal Trash Bin Inactive 11/19/2017 [facility] Saline Flush 0.9% 10 ml, Route: IVP, Drug Form: INJ, Dosing Weight 105.909, kg, PRN, PRN Line Flush, Start date: 11/19/17 11:20:00 CDT, Duration: 30 day, Stop date: 12/19/17 11:19:00 CDTNotes: Same as: BD Posiflush Sterile No Longer Active 11/19/2017 [facility] Trazodone 25 mg, 0.5 tab, Route: PO, Drug form: TAB, Bedtime, Dosing Weight 105.909, kg, PRN Insomnia, Start date: 11/19/17 11:20:00 CDT, Duration: 30 day, Stop date: 12/19/17 11:19:00 CDTNotes: (Same As: Desyrel) No Longer Active 11/19/2017 [facility] Acetaminophen 325 MG / Hydrocodone Bitartrate 10 MG Oral Tablet 2 tab, Route: PO, Drug Form: TAB, Dosing Weight 105.909, kg, Q4H, PRN Pain Score 4-6, Start date: 11/19/17 11:20:00 CDT, Duration: 30 day, Stop date: 12/19/17 11:19:00 CDTNotes: Do not exceed 4gm/day of acetaminophen. (Same as: [place] 325/10) No Longer Active 11/19/2017 [facility] Diphenhydramine 25 mg, 1 cap, Route: PO, Drug form: CAP, Bedtime, Dosing Weight 105.909, kg, PRN Insomnia, Start date: 11/19/17 11:20:00 CDT, Duration: 30 day, Stop date: 12/19/17 11:19:00 CDTNotes: (Same as: Ted yl) No Longer Active 11/19/2017 [facility] Dulcolax Laxative 5 mg, 1 tab, Route: PO, Drug form: ECTAB, Q24H, Dosing Weight 105.909, kg, PRN Constipation, Start date: 11/19/17 11:20:00 CDT, Duration: 30 day, Stop date: 12/19/17 11:19:00 CDTNotes: (Same As: Dulcolax, Correctol) (Do Not Crush) "Do Not Crush" No Longer Active 11/19/2017 [facility] Aluminum Hydroxide 40 MG/ML / Magnesium Hydroxide 40 MG/ML / Simethicone 4 MG/ML Oral Suspension 30 ml, Route: PO, Drug Form: SUSP, Dosing Weight 105.909, kg, Q4H, PRN Indigestion, Start date: 11/19/17 11:20:00 CDT, Duration: 30 day, Stop date: 12/19/17 11:19:00 CDTNotes: (aluminum hydroxide-mag nesium hyd- simethicone [phone]/[phone] 30 ml ud GEO) No Longer Active 11/19/2017 [facility] ePHEDrine (ANES) Route: IV, Drug form: INJ, ONCE, Stop date: 11/19/17 10:47:00 CDT Inactive 11/19/2017 [facility] phenylephrine (ANES) Route: IV, Drug form: INJ, ONCE, Stop date: 11/19/17 10:47:00 CDT Inactive 11/19/2017 [facility] rocuronium (ANES) Route: IV, Drug form: INJ, ONCE, Stop date: 11/19/17 10:42:00 CDT Inactive 11/19/2017 [facility] dexamethasone (ANES) Route: IV, Drug form: INJ, ONCE, Stop date: 11/19/17 10:42:00 CDT Inactive 11/19/2017 [facility] lidocaine (ANES) Route: IV, Drug form: INJ, ONCE, Stop date: 11/19/17 10:42:00 CDT Inactive 11/19/2017 [facility] propofol (ANES) Route: IV, Drug form: INJ, ONCE, Stop date: 11/19/17 10:42:00 CDT Inactive 11/19/2017 [facility] succinylcholine (ANES) Route: IV, Drug form: INJ, ONCE, Stop date: 11/19/17 10:42:00 CDT Inactive 11/19/2017 [facility] fentaNYL (ANES) Route: IV, Drug form: INJ, ONCE, Stop date: 11/19/17 10:42:00 CDT Inactive 11/19/2017 [facility] midazolam (ANES) Route: IV, Drug form: SOLN, ONCE, Stop date: 11/19/17 10:42:00 CDT Inactive 11/19/2017 [facility] acetaminophen (ANES) 10 mg Route: IV, Drug form: INJ, Start date: 11/19/17 10:40:00 CDT, Stop date: 11/19/17 11:40:00 CDT Inactive 11/19/2017 [facility] ceFAZolin (ANES) Route: IV, Drug form: INJ, ONCE, Stop date: 11/19/17 10:27:00 CDT Inactive 11/19/2017 [facility] propofol (ANES) 10 mg Route: IV, Drug form: INJ, Start date: 11/19/17 9:55:00 CDT, Stop date: 11/19/17 10:55:00 CDT Inactive 11/19/2017 [facility] Lactated Ringers Injection IV (ANES) 1000 mL Route: IV, Total Volume: 1,000, Start date: 11/19/17 9:23:00 CDT, Stop date: 11/19/17 10:23:00 CDT Inactive 11/19/2017 [facility] duloxetine 60 mg, 1 cap, Route: PO, Drug form: DRC, Daily, Dosing Weight 105.909, kg, Start date: 11/19/17 9:00:00 CDT, Stop date: 12/18/17 9:00:00 CDTNotes: (Same as: Cymbalta) (Do Not Crush) No Longer Active 11/19/2017 [facility] Amlodipine 5 mg, 1 tab, Route: PO, Drug form: TAB, Daily, Dosing Weight 105.909, kg, Start date: 11/19/17 9:00:00 CDT, Duration: 30 day, Stop date: 12/18/17 9:00:00 CDTNotes: (Same as: Norvasc) No Longer Active 11/19/2017 [facility] Albuterol 0.83 MG/ML Inhalant Solution 2.49 mg, 3 mL, Route: NEB, Drug form: SOLN, PRN, Dosing Weight 105.909, kg, PRN Respiratory Pathway, Start date: 11/19/17 8:37:00 CDT, Duration: 30 day, Stop date: 12/19/17 8:36:00 CDTNotes: SEE RT DOCUMENTATION (Same as: Proventil) No Longer Active 11/19/2017 [facility] Glucagon 1 mg, Route: IM, Drug form: PDR/INJ, PRN, Dosing Weight 105.909, kg, PRN Blood Glucose Results, Start date: 11/19/17 8:35:00 CDT, Duration: 30 day, Stop date: 12/19/17 8:34:00 CDT No Longer Active 11/19/2017 [facility] Dextrose 50% Syringe 25 gm, 50 mL, Route: IVP, Drug Form: INJ, Dosing Weight 105.909, kg, PRN, PRN Blood Glucose Results, Start date: 11/19/17 8:35:00 CDT, Duration: 30 day, Stop date: 12/19/17 8:34:00 CDT No Longer Active 11/19/2017 [facility] Insulin Lispro 5 unit, 0.05 mL, Route: SUB-Q, Drug form: SOLN, TID-Before Meals, Dosing Weight 105.909, kg, PRN Blood Glucose Results, Start date: 11/19/17 8:35:00 CDT, Duration: 30 day, Stop date: 12/19/17 8:34:00 CDTNotes: (Same as: Humalog ) Roll in palms of hands gently; Do not shake `vigorously. "Single Patient Use Only " WASTE: F/P - Black; E - Municipal Trash Bin Stable for 28 days at room temperature. Expires in days from Date No Longer Active 11/19/[facility] Benadryl 25 mg, 1 cap, Route: PO, Drug form: CAP, TID, Dosing Weight 105.909, kg, PRN Itching, Start date: 11/19/17 8:32:00 CDT, Duration: 30 day, Stop date: 12/19/17 8:31:00 CDTNotes: (Same as: Benadryl) Inactive 11/19/2017 [facility] Trazodone Hydrochloride 50 MG Oral Tablet 50 mg, 1 tab, Route: PO, Drug form: TAB, Bedtime, Dosing Weight 105.909, kg, PRN Insomnia, Start date: 11/19/17 8:32:00 CDT, Duration: 30 day, Stop date: 12/19/17 8:31:00 CDTNotes: (Same As: Desyrel) No Longer Active 11/19/2017 [facility] Lactated Ringers IV 1,000 mL 1,000 mL, Rate: 40 ml/hr, Infuse over: 25 hr, Route: IV, Dosing Weight 105.909 kg, Total Volume: 1,000, Start date: 11/19/17 8:04:00 CDT, Duration: 30 day, Stop date: 12/19/17 8:03:00 CDT, 2.31, m2 Inactive 11/19/2017 [facility] Omeprazole 20 MG Enteric Coated Tablet [Prilosec] 20 mg=1 tab, PO, Daily, # 30 tab, 0 Refill(s) Active 11/06/2017 [facility] NPH Insulin, Human 100 UNT/ML Injectable Suspension [Novolin N] 30 unit, SUB-Q, BID, # 10 ml, 0 Refill(s) No Longer Active 11/06/2017 [facility] Regular Insulin, Human 100 UNT/ML Injectable Solution [Novolin R] 30 unit, SUB-Q, TID-Before Meals, # 10 mL, 0 Refill(s) No Longer Active 11/06/2017 [facility] Home Medication PO, Daily, Refill(s) 0 No Longer Active 11/06/2017 [facility] ramipril 5 mg oral capsule 5 mg=1 cap, PO, Daily, # 30 cap, 1 Refill(s) Active 11/06/2017 [facility] Metformin 1,000 mg, PO, BID, 0 Refill(s) Active 11/06/2017 [facility] Aspirin 325 mg, PO, Daily, 0 Refill(s) No Longer Active 11/06/2017 [facility] DULoxetine 60 mg oral delayed release capsule 60 mg=1 cap, PO, Daily, # 30 cap, 0 Refill(s) Active 11/06/2017 [facility] Amlodipine 5 mg, PO, Daily, 0 Refill(s) Active 11/06/2017 [facility] flecainide 100 mg oral tablet 100 mg=1 tab, PO, Q12H, # 180 tab, 0 Refill(s) Active 11/06/2017 [facility] Vicodin 1 tablet Orally Active 5-300 MG Orally every 6 hrs prn rib pain [facility] 09/23/2013 [facility] Ipratropium [place] as directed Inhalation Active 0.02 % Inhalation every 4 hours [facility] 06/26/2013 [facility] Norel CS 1 teaspoon Orally Active 10-4-12.5 MG/5ML Orally three times a day (tid) [facility] 06/26/2013 [facility] ProAir HFA 2 puffs as needed Inhalation Active 108 (90 Base) MCG/ACT Inhalation every 4 -6 hrs [facility] 06/23/2013 [facility] Zithromax Z-Landry 2 tablets on the first day, then 1 tablet daily for 4 days Orally Active 250 MG Orally Once a day [facility] 06/23/2013 [facility] Bystolic 1 tablet Orally Active 10 mg Orally Once a day [facility] 06/17/2013 [facility] Cymbalta 1 capsule Orally Active 60 MG Orally Once a day (patient needs to be seen before next refill) [facility] 05/09/2013 [facility] Cymbalta 1 capsule Orally No Longer Active 30 mg Orally Once a day [place] 02/13/2013 [facility] Tramadol HCl 1 tablet as needed Orally Active 50 mg Orally every 6 hrs [place] 02/13/2013 [facility] Cymbalta 1 capsule Orally Active 60 MG Orally Once a day [place] 02/13/2013 [facility] Amlodipine Besylate 1 tablet Orally Active 10 mg Orally Once a day [facility] 02/13/2013 [facility] Lisinopril 1 tablet Orally No Longer Active 10 mg Orally Once a day [facility] Simvastatin 1 tablet Orally No Longer Active 40 mg Orally Once a day [facility] Metformin HCl 2 tablet Orally Active 500 mg Orally Twice a day [facility] Novolin N 23 units Subcutaneous Active 100 UNIT/ML Subcutaneous AM and PM [facility] Novolin R 23 units Injection Active 100 UNIT/ML Injection TID with meals [facility] Amlodipine Besylate TAKE ONE TABLET BY MOUTH EVERY DAY NA Active 10MG [facility] Metformin HCl TAKE TWO TABLETS BY MOUTH TWICE DAILY NA Active 500 [facility] Aspirin 1 tablet Orally Active 325 MG Orally Once a day [facility] Allergies, Adverse Reactions, Alerts Substance Category Reaction Severity Reaction type Status Date Reported Comments Source [place] Assertion rash Drug allergy Active [facility] lincomycin Assertion rash Drug allergy Active [facility] Motrin Assertion rash Drug allergy Active [facility] Zofran<sup>1</sup> Assertion didn't work Propensity to adverse reactions to drug Active and Patient say that the Zofran made him Vomit [facility] oxyCODONE Assertion severe N/V Propensity to adverse reactions to drug Active [facility] Immunizations Immunization Date Given Site Status Last Updated Comments Source Results Order Name Results Value Reference Range Date Interpretation Comments Source Spine lumbar myelogram CT Spine lumbar myelogram CT EXAM: CT MYELOGRAM LUMBAR SPINE DATE: 04/02/2018 12:49 PM CDT INDICATION: spinal stenosis, lumbosacral region. spondylolisheis, lumbar region. - ct lumbar ADDITIONAL INFORMATION: Status post L2-L3 laminectomy, facetectomy, foraminotomy, decompression of the 2 and 3 nerve roots and central canal and L2- L3 posterior spinal fusion with spine Canal [place] pedicle screws segmental instrumentation, allograft local bone and infused bone morphogenic protein on 11/19/2017. COMPARISON: CT lumbar spine myelogram 10/24/2017 TECHNIQUE: Volumetric CT of the lumbosacral spine is acquired from the level of L1 to S3. Axial, coronal and sagittal images are provided. Intrathecal contrast was administered prior to the examination. Please see corresponding report for details. DLP: 649 mGy-cm FINDINGS: Vertebral alignment: Mild L2-L3 anterolisthesis is noted. L1-2: Vertebral bodies: Vertebral heights are preserved. Small anterior and posterior osteophytes are identified. Disk heights: Diffuse disc bulge is noted with preserved height. Spinal canal: Mild impingement of the thecal sac is noted secondary to degenerative disc disease, facet arthropathy and ligamentum flavum hypertrophy. Facets and posterior elements: Mild bilateral facet arthrosis is noted. L2-3: Vertebral bodies: Patient has undergone interval spinal canal decompression, laminectomy and L2-L3 posterior spinal fusion with transpedicular screws extending through the L2 and L3 vertebral bodies and associated posterior fixation rods. No evidence of hardware fracture or perihardware lucency. Small osteophytes are noted at the anterior and posterior endplates. Disk heights: Minimal degenerative diffuse disc bulge is identified with preserved disc height. Spinal canal: Previously identified severe stenosis has resolved with recent surgical decompression. Redundancy of the spinal nerve roots is noted consistent with sequelae of prior severe stenosis. Minimal impingement of the thecal sac is noted secondary to degenerative disc disease, facet arthropathy and ligamentum flavum hypertrophy. Facets and posterior elements: Moderate bilateral facet arthrosis is noted. Interval partial laminectomy changes are also seen. L3-4: Vertebral bodies: Interval L2-L3 posterior spinal fusion postoperative changes are again noted. Bulky posterior osteophyte formation is noted at the inferior endplate of L3. Disk heights: Diffuse disc bulge is noted with preserved disc height. Spinal canal: Normal in size Facets and posterior elements: Ankylosis of the facet joints is noted. Metallic hooks are again identified within the L3 posterior elements. L4-5: Vertebral bodies: Vertebral body heights are preserved. Bulky anterior osteophyte formation is noted at the L4 superior endplate with small osteophyte formation at the L5 superior endplate. Small posterior osteophytes are also seen. Disk heights: Moderate disc height loss is identified with associated diffuse disc bulge. Spinal canal: Normal in size Facets and posterior elements: Moderate facet arthropathy is noted left greater than right. Previous L4 laminectomy postsurgical changes are again seen. L5-S1: Vertebral bodies: Vertebral body heights are preserved. Disk heights: Severe disc height loss is noted. Small anterior and posterior osteophytes are identified at the L5 and S1 endplates. Spinal canal: The left S1 posterior surgical hook is again identified protruding directly into the thecal sac and impinging upon the descending left S2 and likely left S3 nerve roots. The hook also mildly encroaches upon the exiting left S1 nerve root without direct impingement. The hook displaces the thecal sac towards the right. Facets and posterior elements: Ankylosis of the bilateral facet joints is noted. Surgical clips are redemonstrated in the posterior elements. Laminectomy changes at L5 are again seen. Intrapelvic organs: Atherosclerosis is noted within the aorta and iliac vessels. No abnormality within the visualized abdominal visceral organs is seen. Paraspinal soft tissues: Fatty atrophy of the paraspinous muscles in the lower lumbar spine is seen. IMPRESSION: 1. Persistent impingement of the descending left S2 nerve root secondary to protrusion of left posterior surgical ruba hook at S1. This probably represent etiology of patient's pain given interval adequate spinal decompression at L2-L3 performed recently. There is mild encroachment of the exiting left S1 nerve root and persistent rightward displacement of the thecal sac also seen. 2. Resolution of severe spinal stenosis at L2-L3 secondary to recent surgical intervention with satisfactory appearance of hardware. 3. Multilevel moderate to severe spondylotic changes of the lumbosacral spine worse in the lower lumbar spine. 4. Paraspinal muscle fatty atrophy in the lower lumbar spine. 04/02/2018 - - This report was dictated by a Newspaper Managing Editor/Fellow. I have personally reviewed the images as well as the Resident's interpretation and agree with the findings. Read by: Agustin Lombardi MD Resident: Agustin Lombardi MD Dictated Date/time: 04/02/18 14:46 Electronically Signed by: Dahlia Koehler MD 04/02/18 15:55 FINAL REPORT [facility] Spine lumbar myelogram DX Spine lumbar myelogram DX EXAM: SPINE LUMBAR MYELOGRAM DX Date: 04/02/2018 1334 hours PREPROCEDURE DIAGNOSIS: Lower back pain POST PROCEDURE DIAGNOSIS: Same CORRECTION LIEUTENANT: Dahlia Koehler M.D. CONTINUOUS IMPROVEMENT ANALYST: Agustin Lombardi M.D ANESTHESIA: Local anesthesia was achieved utilizing 1% lidocaine without epinephrine. Fluoroscopy time: TECHNIQUE: The procedure, indications, risks, benefits, and alternatives were discussed with the patient, who appeared to understand and wished to proceed. Signed consent is in the chart. Time out was performed prior to start of the procedure. The patient was placed prone on the fluoroscopy table, and the lower back was prepped and draped in the usual sterile fashion. A suitable skin entry site was identified under fluoroscopic visualization for intrathecal access. Local anesthesia was achieved as above. Under fluoroscopic visualization, a 3.5 inch 25-gauge spinal needle was advanced into the intrathecal space using a left L4- L5 interlaminar approach. Clear CSF was returned. Under fluoroscopic visualization, 6 mL of Omnipaque 240 were gently instilled into the thecal space. The needle was removed. Standard positioning techniques were used to distribute contrast into the levels to be studied. Spot radiographs were obtained in standard positions. There were no immediate complications, and the patient was transferred to CT in satisfactory condition. COMPARISON: No previous examination is available for comparison. FINDINGS: Contrast was visualized outlining the thecal sac and cauda equina nerve roots. No evidence of contrast holdup. Impression: Successful fluoroscopically guided lumbar puncture for injection of intrathecal contrast material. 04/02/2018 - - This report was dictated by a Newspaper Managing Editor/Fellow. I have personally reviewed the images as well as the Resident's interpretation and agree with the findings. Read by: Agustin Lombardi MD Resident: Agustin Lombardi MD Dictated Date/time: 04/02/18 14:41 Electronically Signed by: Dahlia Koehler MD 04/02/18 15:56 FINAL REPORT [facility] Spine lumbar 2 or 3 views DX Spine lumbar 2 or 3 views DX EXAM: XR LUMBAR SPINE 2 VIEWS DATE: 11/21/2017 8:00 AM CDT INDICATION: Pain, Lumbar region - post-op COMPARISON: November 19, 2017 TECHNIQUE: AP and lateral radiographs of the lumbar spine FINDINGS: 5 lumbar type, non-rib bearing vertebral bodies are present. Posterior fusion hardware in the lumbar spine again visualized. Pedicle screws noted at L2-L3. Short rods with laminar hooks also noted between L3 and S1. There is straightening of the lumbar lordosis. Disc space narrowing visualized at L5-S1. Remaining disc spaces are intact. Vertebral body heights remain maintained. No soft tissue abnormality is identified. IMPRESSION: 1. Posterior fusion hardware L3-S1 and L2-3 appear unchanged with adequate alignment. 11/21/2017 - - Read by: Dahlia Koehler MD Dictated Date/time: 11/21/17 12:39 Electronically Signed by: Dahlia Koehler MD 11/21/17 12:41 FINAL REPORT [facility] HEMATOLOGY WBC 22.2 K/CMM 3.7 - 10.4 11/21/2017 Ortho and Spine HEMATOLOGY MCHC 33.9 g/dL 32.0 - 36.0 11/21/2017 Ortho [facility] Spine HEMATOLOGY MPV 8.3 fL 7.4 - 10.4 11/21/2017 Orth[facility] Spine HEMATOLOGY RDW 13.1 % 11.5 - 14.5 11/21/2017 Ortho [facility] Spine HEMATOLOGY Platelet 227 K/CMM 133 - 450 11/21/2017 Orth[facility] Spine HEMATOLOGY MCV 87.2 fL 80.0 - 94.0 11/21/2017 Orth[facility] Spine HEMATOLOGY RBC 4.03 M/CMM 4.70 - 6.10 11/21/2017 [facility] Spine HEMATOLOGY Hgb 11.9 g/dL 14.0 - 18.0 11/21/2017 [facility] Spine HEMATOLOGY MCH 29.5 pg 27.0 - 31.0 11/21/2017 [facility] Spine HEMATOLOGY Hct 35.1 % 42.0 - 54.0 11/21/2017 [facility] Spine HEMATOLOGY Basophils 0.1 % 0.0 - 1.0 11/21/2017 [facility] Sp[facility] HEMATOLOGY Lymphocytes # 1.2 K/CMM 1.0 - 5.5 11/21/2017 [facility] Spine HEMATOLOGY Monocytes 9.3 % 2.0 - 12.0 11/21/2017 [facility] Spine HEMATOLOGY Segs-Bands # 19.0 K/CMM 1.5 - 8.1 11/21/2017 [facility] Spine HEMATOLOGY Lymphocytes 5.3 % 20.0 - 40.0 11/21/2017 [facility] Spine HEMATOLOGY Segs 85.3 % 45.0 - 75.0 11/21/2017 [facility] Spine HEMATOLOGY RBC Morph Normal (11/21/17 5:18 AM) 11/21/2017 Orth[facility] Spine HEMATOLOGY Plt Morph Normal (11/21/17 5:18 AM) 11/21/2017 [facility] Sp[facility] HEMATOLOGY Monocytes # 2.1 K/CMM 0.0 - 0.8 11/21/2017 Orth[facility] Spine CHEM PANEL eGFR 70 mL/min/1.73m2 11/20/2017 Result Comment: The eGFR is calculated using the CKD-EPI formula. In most young, healthy individuals the eGFR will be >90 mL/min/1.73m2. The eGFR declines with age. An eGFR of 60-89 may be normal in some populations, particularly the elderly, for whom the CKD-EPI formula has not been extensively validated. Use of the eGFR is not recommended in the following populations: Individuals with unstable creatinine concentrations, including patients and those with serious co-morbid conditions. Patients with extremes in muscle mass or diet. The data above are obtained from the National Kidney Disease Education Program (NKDEP) which additionally recommends that when the eGFR is used in patients with extremes of body mass index for purposes of drug dosing, the eGFR should be multiplied by the estimated BMI. [facility] Spine CHEM PANEL CO2 24 meq/L 24 - 32 11/20/2017 [facility] Sp[facility] CHEM PANEL Calcium Lvl 8.4 mg/dL 8.5 - 10.5 11/20/2017 [facility] Sp[facility] CHEM PANEL Glucose Lvl 210 mg/dL 70 - 99 11/20/2017 [facility] Spine CHEM PANEL Potassium Lvl 4.5 meq/L 3.5 - 5.1 11/20/2017 [facility] Sp[facility] CHEM PANEL Sodium Lvl 134 meq/L 135 - 145 11/20/2017 [facility] Spine CHEM PANEL BUN 19 mg/dL 7 - 22 11/20/2017 [facility] Sp[facility] CHEM PANEL Creatinine Lvl 1.07 mg/dL 0.50 - 1.40 11/20/2017 [facility] Spine CHEM PANEL Chloride Lvl 101 meq/L 95 - 109 11/20/2017 [facility] Spine CHEM PANEL AGAP 13.5 meq/L 10.0 - 20.0 11/20/2017 [facility] Spine HEMATOLOGY MCHC 33.4 g/dL 32.0 - 36.0 11/20/2017 [facility] Sp[facility] HEMATOLOGY RDW 13.2 % 11.5 - 14.5 11/20/2017 [facility] Spine HEMATOLOGY Hgb 12.7 g/dL 14.0 - 18.0 11/20/2017 [facility] Sp[facility] HEMATOLOGY Hct 38.0 % 42.0 - 54.0 11/20/2017 [facility] Spine HEMATOLOGY MCV 86.4 fL 80.0 - 94.0 11/20/2017 [facility] Sp[facility] HEMATOLOGY MCH 28.9 pg 27.0 - 31.0 11/20/2017 [facility] Spine HEMATOLOGY WBC 20.7 K/CMM 3.7 - 10.4 11/20/2017 [facility] Sp[facility] HEMATOLOGY RBC 4.40 M/CMM 4.70 - 6.10 11/20/2017 [facility] Spine HEMATOLOGY Platelet 246 K/CMM 133 - 450 11/20/2017 [facility] Spine HEMATOLOGY MPV 7.9 fL 7.4 - 10.4 11/20/2017 [facility] Spine HEMATOLOGY Segs 85.4 % 45.0 - 75.0 11/20/2017 [facility] Sp[facility] HEMATOLOGY Lymphocytes 6.2 % 20.0 - 40.0 11/20/2017 [facility] Sp[facility] HEMATOLOGY Monocytes 8.4 % 2.0 - 12.0 11/20/2017 [facility] Sp[facility] HEMATOLOGY Monocytes # 1.7 K/CMM 0.0 - 0.8 11/20/2017 [facility] Spine HEMATOLOGY Lymphocytes # 1.3 K/CMM 1.0 - 5.5 11/20/2017 [facility] HEMATOLOGY Segs-Bands # 17.7 K/CMM 1.5 - 8.1 11/20/2017 [facility] Spine BLOOD BANK RESULTS Antibody Scrn Negative (11/19/17 7:28 AM) 11/19/2017 [facility] Spine BLOOD BANK RESULTS ABO/Rh O POS 11/19/2017 [facility] Spine Spine lumbar single view DX Spine lumbar single view DX EXAM: XR LUMBAR SPINE 1 VIEW DATE: 11/19/2017 1015 hours INDICATION: L2-L3 posterior spinal fusion COMPARISON: Lumbar myelogram 10/24/2017 TECHNIQUE: Lateral intraoperative radiographs of the lumbar spine FINDINGS: Redemonstrated is posterior fusion of L3-S1 with laminar hooks. There has been posterior transpedicular fixation of L2-L3. There is no perihardware fracture. IMPRESSION: Satisfactory alignment of L2-L3 posterior fixation hardware. 11/19/2017 - - This report was dictated by a Newspaper Managing Editor/Fellow. I have personally reviewed the images as well as the Resident's interpretation and agree with the findings. Read by: Georgette Reinoso MD Resident: Georgette Reinoso MD Dictated Date/time: 11/19/17 11:38 Electronically Signed by: Gabe Wilkinson MD 11/19/17 14:45 FINAL REPORT [facility] BLOOD BANK RESULTS ABO/Rh O POS 11/07/2017 Orth[facility] Spine BLOOD BANK RESULTS Antibody Scrn Negative (11/07/17 8:15 AM) 11/07/2017 Orth[facility] Spine CHEM PANEL B/C Ratio 17 6 - 25 11/07/2017 [facility] Spine CHEM PANEL AGAP 16.8 meq/L 10.0 - 20.0 11/07/2017 [facility] Spine CHEM PANEL Globulin 4.2 g/dL 2.7 - 4.2 11/07/2017 [facility] Spine CHEM PANEL A/G Ratio 0.8 0.7 - 1.6 11/07/2017 [facility] Spine CHEM PANEL eGFR 73 mL/min/1.73m2 11/07/2017 Result Comment: The eGFR is calculated using the CKD-EPI formula. In most young, healthy individuals the eGFR will be >90 mL/min/1.73m2. The eGFR declines with age. An eGFR of 60-89 may be normal in some populations, particularly the elderly, for whom the CKD-EPI formula has not been extensively validated. Use of the eGFR is not recommended in the following populations: Individuals with unstable creatinine concentrations, including patients and those with serious co-morbid conditions. Patients with extremes in muscle mass or diet. The data above are obtained from the National Kidney Disease Education Program (NKDEP) which additionally recommends that when the eGFR is used in patients with extremes of body mass index for purposes of drug dosing, the eGFR should be multiplied by the estimated BMI. [facility] Spine CHEM PANEL Total Protein 7.4 g/dL 6.4 - 8.4 11/07/2017 [facility] Sp[facility] CHEM PANEL Alk Phos 115 unit/L 39 - 136 11/07/2017 [facility] Sp[facility] CHEM PANEL Bili Total 0.2 mg/dL 0.2 - 1.3 11/07/2017 [facility] Sp[facility] CHEM PANEL ALANINE AMINOTRANSFERASE 46 unit/L 0 - 65 11/07/2017 [facility] Sp[facility] CHEM PANEL Albumin Lvl 3.2 g/dL 3.5 - 5.0 11/07/2017 [facility] CHEM PANEL ASPARTATE TRANSAMINASE 33 unit/L 0 - 37 11/07/2017 [facility] Sp[facility] CHEM PANEL Sodium Lvl 139 meq/L 135 - 145 11/07/2017 [facility] Sp[facility] CHEM PANEL Potassium Lvl 3.8 meq/L 3.5 - 5.1 11/07/2017 [facility] Sp[facility] CHEM PANEL Chloride Lvl 103 meq/L 95 - 109 11/07/2017 [facility] CHEM PANEL CO2 23 meq/L 24 - 32 11/07/2017 [facility] CHEM PANEL Glucose Lvl 199 mg/dL 70 - 99 11/07/2017 [facility] CHEM PANEL BUN 18 mg/dL 7 - 22 11/07/2017 [facility] Sp[facility] CHEM PANEL Creatinine Lvl 1.04 mg/dL 0.50 - 1.40 11/07/2017 [facility] Sp[facility] CHEM PANEL Calcium Lvl 8.6 mg/dL 8.5 - 10.5 11/07/2017 [facility] Sp[facility] HEMATOLOGY MPV 8.3 fL 7.4 - 10.4 11/07/2017 [facility] Sp[facility] HEMATOLOGY Platelet 261 K/CMM 133 - 450 11/07/2017 [facility] Sp[facility] HEMATOLOGY Hct 41.2 % 42.0 - 54.0 11/07/2017 [facility] Sp[facility] HEMATOLOGY Hgb 13.7 g/dL 14.0 - 18.0 11/07/2017 [facility] HEMATOLOGY RBC 4.68 M/CMM 4.70 - 6.10 11/07/2017 [facility] HEMATOLOGY WBC 9.9 K/CMM 3.7 - 10.4 11/07/2017 [facility] HEMATOLOGY MCHC 33.3 g/dL 32.0 - 36.0 11/07/2017 [facility] HEMATOLOGY MCH 29.3 pg 27.0 - 31.0 11/07/2017 [facility] HEMATOLOGY MCV 88.0 fL 80.0 - 94.0 11/07/2017 [facility] HEMATOLOGY RDW 13.2 % 11.5 - 14.5 11/07/2017 [facility] HEMATOLOGY Monocytes 10.7 % 2.0 - 12.0 11/07/2017 [facility] Sp[facility] HEMATOLOGY Eosinophils 2.1 % 0.0 - 4.0 11/07/2017 [facility] Sp[facility] HEMATOLOGY Segs 62.1 % 45.0 - 75.0 11/07/2017 [facility] Sp[facility] HEMATOLOGY Monocytes # 1.1 K/CMM 0.0 - 0.8 11/07/2017 [facility] Sp[facility] HEMATOLOGY Basophils # 0.1 K/CMM 0.0 - 0.2 11/07/2017 [facility] Sp[facility] HEMATOLOGY Eosinophils # 0.2 K/CMM 0.0 - 0.5 11/07/2017 [facility] Sp[facility] HEMATOLOGY Segs-Bands # 6.1 K/CMM 1.5 - 8.1 11/07/2017 [facility] Sp[facility] HEMATOLOGY Basophils 0.6 % 0.0 - 1.0 11/07/2017 [facility] HEMATOLOGY Lymphocytes # 2.4 K/CMM 1.0 - 5.5 11/07/2017 [facility] Sp[facility] HEMATOLOGY Lymphocytes 24.5 % 20.0 - 40.0 11/07/2017 [facility] Sp[facility] HEMATOLOGY PROTIME 12.6 s 12.0 - 14.7 11/07/2017 [facility] Spine HEMATOLOGY aPTT 30.3 s 22.9 - 35.8 11/07/2017 [facility] Spine HEMATOLOGY INR 0.94 0.85 - 1.17 11/07/2017 [facility] Spine SPECIAL CHEMISTRY Hgb A1C 6.9 % <=5.6 % 11/07/2017 [facility] Spine CHEM PANEL eGFR 76 mL/min/1.73m2 10/24/2017 Result Comment: The eGFR is calculated using the CKD-EPI formula. In most young, healthy individuals the eGFR will be >90 mL/min/1.73m2. The eGFR declines with age. An eGFR of 60-89 may be normal in some populations, particularly the elderly, for whom the CKD-EPI formula has not been extensively validated. Use of the eGFR is not recommended in the following populations: Individuals with unstable creatinine concentrations, including patients and those with serious co-morbid conditions. Patients with extremes in muscle mass or diet. The data above are obtained from the National Kidney Disease Education Program (NKDEP) which additionally recommends that when the eGFR is used in patients with extremes of body mass index for purposes of drug dosing, the eGFR should be multiplied by the estimated BMI. [facility] Spine CHEM PANEL POC AGAP 16.0 meq/L 10.0 - 20.0 10/24/2017 [facility] Spine CHEM PANEL POC Hemoglobin 15.3 g/dL 14.0 - 18.0 10/24/2017 [facility] Spine CHEM PANEL POC Hematocrit 45.0 % 42.0 - 54.0 10/24/2017 [facility] Spine CHEM PANEL POC Ion Ca 1.18 mMol/L 1.05 - 1.25 10/24/2017 [facility] Spine CHEM PANEL POC Creatinine 1.0 mg/dL 0.5 - 1.4 10/24/2017 [facility] Sp[facility] CHEM PANEL POC Glucose 218 mg/dL 70 - 99 10/24/2017 [facility] Spine CHEM PANEL POC Carbon Dioxide 26 mEq/dL 24 - 32 10/24/2017 [facility] Sp[facility] CHEM PANEL POC BUN 28 mg/dL 7 - 22 10/24/2017 [facility] Sp[facility] CHEM PANEL POC Chloride 100 meq/L 95 - 109 10/24/2017 [facility] Sp[facility] CHEM PANEL POC Potassium 4.8 meq/L 3.5 - 5.1 10/24/2017 [facility] Spine CHEM PANEL POC Sodium 136 meq/L 135 - 145 10/24/2017 [facility] Sp[facility] Spine lumbar myelogram CT Spine lumbar myelogram CT EXAM: MYELOGRAM LUMBAR SPINE EXAM: CT MYELOGRAM LUMBAR SPINE DATE: 10/24/2017 INDICATION: spondylolisthesis, lumbar region. spinal stenosis, lumbar region without neurogenic claudication - ct lumbar COMPARISON: none LUMBAR MYELOGRAM: TECHNIQUE AND FINDINGS: Informed consent was obtained from the patient. A time out procedure was performed. The lower back was prepped and draped in sterile fashion with the patient in prone position. Under fluoroscopic guidance a 22 gauge needle was advanced into the thecal sac at the L4 level. Under fluoroscopic guidance, 10 mL Omnipaque was slowly injected into the thecal sac. Adequate migration of the contrast through the spinal canal is demonstrated, without evidence of blockage. Extrinsic compression of the thecal sac at the level of the L2-L3 disc is noted. The patient tolerated the procedure well. CT MYELOGRAM: TECHNIQUE AND FINDINGS: Volumetric acquisition of the lumbar spine, from the level of T11 to the sacrum. Intrathecal contrast was administered prior to the examination. DLP: 797 mGy-cm The height of the vertebral bodies is normal. Grade 1 anterolisthesis of L2 on L3 and grade 1 retrolisthesis of L5 on S1 are demonstrated. Degenerative changes of the disks and facet joints are present at multiple levels. The patient is status post posterior decompression at the L4 and L5 with laminectomy and resection of the spinous processes. Posterior rods anchored with laminar hooks at L3 and S1 are demonstrated. The L3 laminae are thickened, with calcifications of the adjacent soft tissues. There is also thickening of the laminae at L5 and S1. The left laminar hook at S1 is encroaching upon the sacral spinal canal, causing deformity and right lateral displacement of the thecal sac. There is however CSF surrounding the laterally displaced nerve roots. Significant constriction of the thecal sac is identified at L2-L3 as a result of bulging of the disc and severe hypertrophy of the facet joints and ligamenta flava. The ligamenta flava are calcified at this level. This results in crowding of the roots of the cauda equina. At all the other levels the thecal sac has normal shape and the distribution of the nerve roots is normal. The sacroiliac joints are unremarkable, with minimal vacuum phenomenon on the right. The articular spaces are preserved. IMPRESSION: 1. Postoperative changes of spinal decompression at L4 and L5, with posterior fixation from L3 through S1. 2. Severe constriction of the thecal sac and crowding of the roots of the cauda equina at L2-L3 as a result of bulging of the disc, hypertrophy of the facet joints, and hypertrophy and calcification of the ligamenta flava. 3. Right lateral displacement of the thecal sac at the level of S1 due to the hardware, without significant compressive effect on the nerve roots. 10/24/2017 - - Read by: Coco Chacon Dictated Date/time: 10/24/17 14:04 Electronically Signed by: Coco Chacon 10/25/17 08:55 FINAL REPORT [facility] Spine lumbar myelogram DX Spine lumbar myelogram DX EXAM: MYELOGRAM LUMBAR SPINE EXAM: CT MYELOGRAM LUMBAR SPINE DATE: 10/24/2017 INDICATION: spondylolisthesis, lumbar region. spinal stenosis, lumbar region without neurogenic claudication - ct lumbar COMPARISON: none LUMBAR MYELOGRAM: TECHNIQUE AND FINDINGS: Informed consent was obtained from the patient. A time out procedure was performed. The lower back was prepped and draped in sterile fashion with the patient in prone position. Under fluoroscopic guidance a 22 gauge needle was advanced into the thecal sac at the L4 level. Under fluoroscopic guidance, 10 mL Omnipaque was slowly injected into the thecal sac. Adequate migration of the contrast through the spinal canal is demonstrated, without evidence of blockage. Extrinsic compression of the thecal sac at the level of the L2-L3 disc is noted. The patient tolerated the procedure well. CT MYELOGRAM: TECHNIQUE AND FINDINGS: Volumetric acquisition of the lumbar spine, from the level of T11 to the sacrum. Intrathecal contrast was administered prior to the examination. DLP: 797 mGy-cm The height of the vertebral bodies is normal. Grade 1 anterolisthesis of L2 on L3 and grade 1 retrolisthesis of L5 on S1 are demonstrated. Degenerative changes of the disks and facet joints are present at multiple levels. The patient is status post posterior decompression at the L4 and L5 with laminectomy and resection of the spinous processes. Posterior rods anchored with laminar hooks at L3 and S1 are demonstrated. The L3 laminae are thickened, with calcifications of the adjacent soft tissues. There is also thickening of the laminae at L5 and S1. The left laminar hook at S1 is encroaching upon the sacral spinal canal, causing deformity and right lateral displacement of the thecal sac. There is however CSF surrounding the laterally displaced nerve roots. Significant constriction of the thecal sac is identified at L2-L3 as a result of bulging of the disc and severe hypertrophy of the facet joints and ligamenta flava. The ligamenta flava are calcified at this level. This results in crowding of the roots of the cauda equina. At all the other levels the thecal sac has normal shape and the distribution of the nerve roots is normal. The sacroiliac joints are unremarkable, with minimal vacuum phenomenon on the right. The articular spaces are preserved. IMPRESSION: 1. Postoperative changes of spinal decompression at L4 and L5, with posterior fixation from L3 through S1. 2. Severe constriction of the thecal sac and crowding of the roots of the cauda equina at L2-L3 as a result of bulging of the disc, hypertrophy of the facet joints, and hypertrophy and calcification of the ligamenta flava. 3. Right lateral displacement of the thecal sac at the level of S1 due to the hardware, without significant compressive effect on the nerve roots. 10/24/2017 - - Read by: Coco Chacon Dictated Date/time: 10/24/17 14:04 Electronically Signed by: Coco Chacon 10/25/17 08:55 FINAL REPORT [facility] Vital Signs Vital Sign Value Date Comments Source Systolic (mm Hg) 139 11/22/2017 Ortho [facility] Spine Diastolic (mm Hg) 86 11/22/2017 [facility] Respitory Rate 16 11/22/2017 [facility] Heart Rate 69 11/22/2017 [facility] Temperature Oral (F) 98.1 F 11/22/2017 [facility] Respitory Rate 18 11/22/2017 [facility] Systolic (mm Hg) 132 11/22/2017 [facility] Diastolic (mm Hg) 75 11/22/2017 [facility] Heart Rate 68 11/22/2017 [facility] Temperature Oral (F) 98.2 F 11/22/2017 [facility] Respitory Rate 18 11/22/2017 [facility] Heart Rate 62 11/22/2017 [facility] Temperature Oral (F) 98.4 F 11/22/2017 [facility] Systolic (mm Hg) 142 11/22/2017 [facility] Diastolic (mm Hg) 79 11/22/2017 [facility] BMI Calculated 33.5 11/19/2017 [facility] Weight 105.909 11/19/2017 [facility] Height 177.8 cm 11/06/2017 [facility] Respitory Rate 18 10/24/2017 [facility] Heart Rate 75 10/24/2017 [facility] Systolic (mm Hg) 127 10/24/2017 [facility] Diastolic (mm Hg) 65 10/24/2017 [facility] Systolic (mm Hg) 120 10/24/2017 [facility] Diastolic (mm Hg) 72 10/24/2017 [facility] Heart Rate 81 10/24/2017 [facility] Respitory Rate 18 10/24/2017 [facility] Heart Rate 86 10/24/2017 [facility] Respitory Rate 17 10/24/2017 [facility] Systolic (mm Hg) 126 10/24/2017 [facility] Diastolic (mm Hg) 87 10/24/2017 [facility] BMI Calculated 33.5 10/24/2017 [facility] Height 177.8 cm 10/24/2017 [facility] Weight 105.909 10/24/2017 [facility] Weight 245 09/23/2013 [facility] Height 70 09/23/2013 [facility] Heart Rate 70 09/23/2013 [facility] Diastolic (mm Hg) 70 09/23/2013 [facility] Systolic (mm Hg) 1130 09/23/2013 [facility] Weight 232 06/26/2013 [facility] Height 70 06/26/2013 [facility] Temperature Oral (F) 98.6 F 06/26/2013 [facility] Heart Rate 70 06/26/2013 [facility] Diastolic (mm Hg) 72 06/26/2013 [facility] Systolic (mm Hg) 120 06/26/2013 [facility] Weight 236 06/17/2013 [facility] Height 70 06/17/2013 [facility] Temperature Oral (F) 98.4 F 06/17/2013 [facility] Heart Rate 71 06/17/2013 [facility] Diastolic (mm Hg) 88 06/17/2013 [facility] Systolic (mm Hg) 142 06/17/2013 [facility] Weight 237 03/04/2013 [facility] Height 70 03/04/2013 [facility] Temperature Oral (F) 98.6 F 03/04/2013 [facility] Heart Rate 74 03/04/2013 [facility] Diastolic (mm Hg) 70 03/04/2013 [facility] Systolic (mm Hg) 115 03/04/2013 [facility] Weight 236 02/13/2013 [facility] Height 70 02/13/2013 [facility] Heart Rate 68 02/13/2013 [facility] Diastolic (mm Hg) 76 02/13/2013 [facility] Systolic (mm Hg) 136 02/13/2013 [facility] Weight 228 01/17/2013 [facility] Height 70 01/17/2013 [facility] Temperature Oral (F) 99.0 F 01/17/2013 [facility] Heart Rate 72 01/17/2013 [facility] Diastolic (mm Hg) 78 01/17/2013 [facility] Systolic (mm Hg) 130 01/17/2013 [facility] Encounters Location Location Details Encounter Type Encounter Number Reason For Visit Attending Provider ADM Date DC Date Status Source [facility] 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 MACHINE- FATIGUE [id number] 01/17/2013 01/17/2013 [facility] 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 MACHINE- 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 [id number] 01/17/2013 01/17/2013 [facility] 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 MACHINE- FATIGUE [id number] 01/17/2013 01/17/2013 [facility] 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 MACHINE- FATIGUE [id number] 01/17/2013 01/17/2013 [facility] 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 MACHINE- FATIGUE [id number] 01/17/2013 01/17/2013 [facility] 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 MACHINE- FATIGUE [id number] 01/17/2013 01/17/2013 [facility] 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 MACHINE- FATIGUE [id number] 01/17/2013 01/17/2013 [facility] 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 MACHINE- FATIGUE [id number] 01/17/2013 01/17/2013 [facility] 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 MACHINE- FATIGUE [id number] 01/17/2013 01/17/2013 [facility] 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 MACHINE- FATIGUE [id number] 01/17/2013 01/17/2013 [facility] 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 MACHINE- FATIGUE [id number] 01/17/2013 01/17/2013 [facility] Unknown [id number] 02/10/2013 02/10/2013 [facility] Unknown [id number] 02/10/2013 02/10/2013 [facility] Unknown [id number] 02/10/2013 02/10/2013 [facility] Unknown [id number] 02/10/2013 02/10/2013 [facility] Unknown [id number] 02/10/2013 02/10/2013 [facility] Unknown [id number] 02/10/2013 02/10/2013 [facility] Unknown [id number] 02/10/2013 02/10/2013 [facility] Unknown [id number] 02/10/2013 02/10/2013 [facility] Unknown [id number] 02/10/2013 02/10/2013 [facility] Unknown [id number] 02/10/2013 02/10/2013 [facility] Unknown [id number] 02/10/2013 02/10/2013 [facility] Unknown [id number] 02/10/2013 02/10/2013 [facility] cough [id number] 02/13/2013 02/13/2013 [facility] cough [id number] 02/13/2013 02/13/2013 [facility] cough [id number] 02/13/2013 02/13/2013 [facility] cough [id number] 02/13/2013 02/13/2013 [facility] cough [id number] 02/13/2013 02/13/2013 [facility] cough [id number] 02/13/2013 02/13/2013 [facility] cough [id number] 02/13/2013 02/13/2013 [facility] cough [id number] 02/13/2013 02/13/2013 [facility] cough [id number] 02/13/2013 02/13/2013 [facility] cough [id number] 02/13/2013 02/13/2013 [facility] cough [id number] 02/13/2013 02/13/2013 [facility] Unknown [id number] 05/09/2013 05/09/2013 [facility] Unknown [id number] 05/09/2013 05/09/2013 [facility] Unknown [id number] 05/09/2013 05/09/2013 [facility] Unknown [id number] 05/09/2013 05/09/2013 [facility] Unknown [id number] 05/09/2013 05/09/2013 [facility] Unknown [id number] 05/09/2013 05/09/2013 [facility] Unknown [id number] 05/09/2013 05/09/2013 [facility] Unknown [id number] 05/09/2013 05/09/2013 [facility] Unknown [id number] 05/09/2013 05/09/2013 [facility] racing [id number] 06/17/2013 06/17/2013 [facility] Heart racing [id number] 06/17/2013 06/17/2013 [facility] Heart racing [id number] 06/17/2013 06/17/2013 [facility] Heart racing [id number] 06/17/2013 06/17/2013 [facility] Heart racing [id number] 06/17/2013 06/17/2013 [facility] Heart racing [id number] 06/17/2013 06/17/2013 [facility] Heart racing [id number] 06/17/2013 06/17/2013 [facility] Unknown [id number] 06/18/2013 06/18/2013 [facility] Unknown [id number] 06/18/2013 06/18/2013 [facility] Unknown [id number] 06/18/2013 06/18/2013 [facility] Unknown [id number] 06/18/2013 06/18/2013 [facility] Unknown [id number] 06/18/2013 06/18/2013 [facility] Unknown [id number] 06/18/2013 06/18/2013 [facility] Unknown [id number] 06/18/2013 06/18/2013 [facility] Unknown [id number] 06/18/2013 06/18/2013 [facility] sick [id number] 06/23/2013 06/23/2013 [facility] sick [id number] 06/23/2013 06/23/2013 [facility] sick [id number] 06/23/2013 06/23/2013 [facility] sick [id number] 06/23/2013 06/23/2013 [facility] sick [id number] 06/23/2013 06/23/2013 [facility] sick [id number] 06/23/2013 06/23/2013 [facility] sick [id number] 06/23/2013 06/23/2013 [facility] sick [id number] 06/26/2013 06/26/2013 [facility] sick [id number] 06/26/2013 06/26/2013 [facility] sick [id number] 06/26/2013 06/26/2013 [facility] sick [id number] 06/26/2013 06/26/2013 [facility] sick [id number] 06/26/2013 06/26/2013 [facility] fell on ribs [id number] 09/23/2013 09/23/2013 [facility] fell on ribs [id number] 09/23/2013 09/23/2013 [facility] fell on ribs [id number] 09/23/2013 09/23/2013 [facility] fell on ribs [id number] 09/23/2013 09/23/2013 [facility] Unknown [id number] 11/12/2013 11/12/2013 [facility] Unknown [id number] 11/12/2013 11/12/2013 [facility] Unknown [id number] 11/12/2013 11/12/2013 [facility] REFILL [id number] 11/25/2013 11/25/2013 [facility] REFILL [id number] 11/25/2013 11/25/2013 [facility] REFILL [id number] 11/25/2013 11/25/2013 [facility] Unknown [id number] 01/12/2014 01/12/2014 [facility] [id number] [facility] 10/24/2017 10/25/2017 [facility] [id number] [facility] 11/19/2017 11/22/2017 [facility] Procedures Procedure Code Date Perfomer Comments Source Spinal fusion [id number] 11/19/2017 [facility] Myelography via lumbar injection, including radiological supervision and interpretation; lumbosacral [id number] 10/24/2017 [facility] Exploratory lumbar laminectomy [id number] 06/18/1984 [facility] Exploratory lumbar laminectomy [id number] [facility] Lumbar spinal fusion 52474999 [facility] Cataract extraction and insertion of intraocular lens [id number] [facility] Rotator cuff repair [id number] [facility]
--- OUTSIDE RECORDS SUMMARY | 2018-07-25 00:37 | XMS REPORT ---
Author Author Gwendolyn Miranda [facility] eClinicalWorks Address Unknown Phone Unavailable Care Team Providers Care Estimator Printing Name Role Phone Gwendolyn Miranda Unavailable Allergies, Adverse Reactions, Alerts Substance Reaction Event Type Soma rash Drug Allergy Encounters Encounter Location Date Unknown [facility] May 09, 2013 Unknown [facility] Jun 18, 2013 [facility] Jun 23, 2013 Heart racing [facility] Jun 17, 2013 Unknown [facility] Feb 10, 2013 [employer]DER OFFBEAR[employer]- FATIGUE [facility] Jan 17, 2013 cough [facility] Feb 13, 2013 sick [facility] Jun 26, 2013 Problems Problem Type Condition ICD-9 Code Onset Dates Condition Status Assessment Obesity 278.00 Active Assessment Hyperlipidemia 272.4 Active Assessment Fatigue 780.79 Active Assessment Bronchitis 490 Active Problem Leg pain 729.5 Active Problem Hyperlipidemia 272.4 Active Problem HTN (hypertension) 401.9 Active Assessment Diabetes mellitus 250.00 Active Assessment HTN (hypertension) 401.9 Active Problem Fatigue 780.79 Active Assessment Positive CARLITO (antinuclear antibody) 795.79 Active Medications Medication Code System Code Instructions Start Date End Date Status Dosage Cymbalta [facility] [address]-41 60 MG Orally Once a day May 09, 2013 Active 1 capsule ProAir HFA [facility] [address]-50 108 (90 Base) MCG/ACT Inhalation every 4 -6 hrs Jun 23, 2013 Active 2 puffs as needed Novolin N [facility] [address]-91 100 UNIT/ML Subcutaneous AM and PM Active 23 units Metformin HCl [facility] [address]-81 500 Active TAKE TWO TABLETS BY MOUTH TWICE DAILY Bystolic [facility] [address]-51 10 mg Orally Once a day Jun 17, 2013 Active 1 tablet Amlodipine Besylate [facility] [address]-35 10 mg Orally Once a day Feb 13, 2013 Active 1 tablet Ipratropium [place] [facility] [address]-72 0.02 % Inhalation every 4 hours Jun 26, 2013 August 25, 2013 Active as directed Norel CS [facility] [address]-87 10-4-12.5 MG/5ML Orally three times a day (tid) Jun 26, 2013 Jul 06, 2013 Active 1 teaspoon Novolin R [facility] [address]-31 100 UNIT/ML Injection TID with meals Active 23 units Zithromax Z-Landry [facility] [address]-07 250 MG Orally Once a day Jun 23, 2013 Jun 28, 2013 Active 2 tablets on the first day, then 1 tablet daily for 4 days Social History Social History Element Qualifiers Date Reported Ethnicity . Status , Is [place] your primary language? Yes Jun 26, 2013 Where or with whom do you live ? . with spouse Jun 26, 2013 children . 2 Jun 26, 2013 Tobacco Use: . Are you a: never smoker Jun 26, 2013 Use of recreational / street drugs? . Answer: No Jun 26, 2013 Marital Status: . [place] Jun 26, 2013 Do you drink alcohol? . 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 [employer] Jun 26, 2013 Family history Qualifier Description Comment Date Reported Maternal Grandmother Comment not available Jun 26, 2013 Paternal Grandmother Comment not available Jun 26, 2013 Siblings alive diabetes mellitus, COPD Jun 26, 2013 Maternal Grandfather Comment not available Jun 26, 2013 Children alive hypertension Jun 26, 2013 Father colon cancer Jun 26, 2013 Paternal Grandfather Comment not available Jun 26, 2013 Mother lung cancer Jun 26, 2013 Vital Signs Date/Time: Jun 26, 2013 Weight 232 lbs Height 70 inches Temperature 98.6 F Cardiac Monitoring Heart Rate 70 Beats per Minute Blood Pressure Diastolic 72 mm Hg Blood Pressure Systolic 120 mm Hg Results SPIROMETRY W/BRONCHIO DIL NEBULIZER TREATMENT CBC Platelets(- ) 280 NEUTROPHILS(- ) MID-1.1,GRA-6.9 MCHC(- ) 32.6 MCH(- ) 31.5 MCV(- ) 96.4 WBC(- ) 11.2H RDW(- ) 13.1 RBC(- ) 5.05 Hemoglobin(- ) 15.9 Hematocrit(- ) 48.7 PULSE OXIMETRY ROCEPHIN 250MG X2 Ipratropium bromide .02%/ml ALBUTEROL INHAL UNIT DOSE 1 MG Summary Purpose eClinicalWorks Submission
--- OUTSIDE RECORDS SUMMARY | 2018-07-25 00:37 | XMS REPORT ---
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 Status , Is bahraini your primary language? Yes Jun 17, 2013 Where or with whom do you live ? . with spouse Jun 17, 2013 children . 2 Jun 17, 2013 Tobacco Use: . Are you a: never smoker Jun 17, 2013 Use of recreational / street drugs? . Answer: No Jun 17, 2013 Marital Status: . [place]iloh Jun 17, 2013 Do you drink alcohol? . 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
--- OUTSIDE RECORDS SUMMARY | 2018-07-25 00:37 | XMS REPORT ---
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 [facility] Jan 17, 2013 cough [facility] Feb 13, 2013 Problems Problem Type Condition ICD-9 Code Onset Dates Condition Status Assessment Cough 786.2 Active Assessment Hyperlipidemia 272.4 Active Assessment Fatigue 780.79 Active Problem Leg pain 729.5 Active Problem Hyperlipidemia 272.4 Active Problem HTN (hypertension) 401.9 Active Assessment Diabetes mellitus 250.00 Active Assessment HTN (hypertension) 401.9 Active Problem Fatigue 780.79 Active Assessment Leg pain 729.5 Active Medications Medication Code System Code Instructions Start Date End Date Status Dosage Tramadol HCl [facility] [address]-42 50 mg Orally every 6 hrs Feb 13, 2013 Active 1 tablet as needed Cymbalta [facility] [address]-92 30 mg Orally Once a day Feb 13, 2013 Active 1 capsule Metformin HCl [facility] [address]-14 500 mg Orally Twice a day Active 2 tablet Lisinopril [facility] [address]-47 10 mg Orally Once a day Inactive 1 tablet Simvastatin [facility] [address]-62 40 mg Orally Once a day Inactive 1 tablet Cymbalta [facility] [address]-66 60 MG Orally Once a day Feb 13, 2013 Active 1 capsule Novolin N [facility] [address]-99 100 UNIT/ML Subcutaneous AM and PM Active 23 units Novolin R [facility] [address]-05 100 UNIT/ML Injection TID with meals Active 23 units Amlodipine Besylate [facility] [address]-37 10 mg Orally Once a day Feb 13, 2013 Active 1 tablet Social History Social History Element Qualifiers Date Reported Ethnicity . Status , Is irish your primary language? Yes Feb 13, 2013 Where or with whom do you live ? . with spouse Feb 13, 2013 children . 2 Feb 13, 2013 Tobacco Use: . Are you a: never smoker Feb 13, 2013 Use of recreational / street drugs? . Answer: No Feb 13, 2013 Marital Status: . Shiloh Feb 13, 2013 Do you drink alcohol? . 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 [employer] Feb 13, 2013 Family history Qualifier Description Comment Date Reported Maternal Grandmother Comment not available Feb 13, 2013 Paternal Grandmother Comment not available Feb 13, 2013 Siblings alive diabetes mellitus, COPD Feb 13, 2013 Maternal Grandfather Comment not available Feb 13, 2013 Children alive hypertension Feb 13, 2013 Father colon cancer Feb 13, 2013 Paternal Grandfather Comment not available Feb 13, 2013 Mother lung cancer Feb 13, 2013 Vital Signs Date/Time: Feb 13, 2013 Weight 236 lbs Height 70 inches Cardiac Monitoring Heart Rate 68 Beats per Minute Blood Pressure Diastolic 76 mm Hg Blood Pressure Systolic 136 mm Hg Results Creatine Kinase (CK), MB/Total Summary Purpose eClinicalWorks Submission
--- OUTSIDE RECORDS SUMMARY | 2018-07-25 00:37 | XMS REPORT ---
Author Author Jose Alberto Holland Organization eClinicalWorks Address Unknown Phone Unavailable Care Team Providers Care Violin Mechanic Name Role Phone Jose Alberto Holland CP Unavailable Encounters Encounter Location Date Unknown [facility] May 09, 2013 Unknown [facility] Jun 18, 2013 sick [facility] Jun 23, 2013 Heart racing [facility] Jun 17, 2013 Unknown [facility] Feb 10, 2013 GEOPHYSICIST- FATIGUE [facility] Jan 17, 2013 cough [facility] Feb 13, 2013 Problems Problem Type Condition ICD-9 Code Onset Dates Condition Status Problem Leg pain 729.5 Active Problem Hyperlipidemia 272.4 Active Problem HTN (hypertension) 401.9 Active Problem Fatigue 780.79 Active Medications Medication Code System Code Instructions Start Date End Date Status Dosage ProAir HFA [facility] [address]-26 108 (90 Base) MCG/ACT Inhalation every 4 -6 hrs Jun 23, 2013 Active 2 puffs as needed Zithromax Z-Landry [facility] [address]-72 250 MG Orally Once a day Jun 23, 2013 Jun 28, 2013 Active 2 tablets on the first day, then 1 tablet daily for 4 days Social History Social History Element Qualifiers Date Reported Ethnicity . Status , Is slovak your primary language? 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
--- OUTSIDE RECORDS SUMMARY | 2018-07-25 00:37 | XMS REPORT ---
Author Author Chandan Georgette [facility] eClinicalWorks Address Unknown Phone Unavailable Care Team Providers Care Dollyman Name Role Phone Georgette Hawley CP Unavailable Allergies, Adverse Reactions, Alerts Substance Reaction Event Type Soma rash Drug Allergy Encounters Encounter Location Date Unknown [facility] May 09, 2013 Unknown [facility] Jun 18, 2013 [facility] Jun 23, 2013 Heart racing [facility] Jun 17, 2013 Unknown [facility] Feb 10, 2013 DRUG ROOM CLERK- FATIGUE [facility] Jan 17, 2013 cough [facility] Feb 13, 2013 sick [facility] Jun 26, 2013 fell on ribs [facility] September 23, 2013 Problems Problem Type Condition ICD-9 Code Onset Dates Condition Status Problem Leg pain 729.5 Active Problem Hyperlipidemia 272.4 Active Problem HTN (hypertension) 401.9 Active Problem Fatigue 780.79 Active Assessment Rib pain on left side 786.50 Active Medications Medication Code System Code Instructions Start Date End Date Status Dosage Amlodipine Besylate [facility] [address]-09 10MG Active TAKE ONE TABLET BY MOUTH EVERY DAY Novolin N [facility] [address]-32 100 UNIT/ML Subcutaneous AM and PM Active 23 units Vicodin [facility] [address]-02 5-300 MG Orally every 6 hrs prn rib pain September 23, 2013 October 23, 2013 Active 1 tablet Cymbalta [facility] [address]-88 60 MG Orally Once a day May 09, 2013 Active 1 capsule Bystolic [facility] [address]-76 10 mg Orally Once a day Jun 17, 2013 Active 1 tablet Metformin HCl [facility] [address]-87 500 Active TAKE TWO TABLETS BY MOUTH TWICE DAILY Novolin R [facility] [address]-82 100 UNIT/ML Injection TID with meals Active 23 units Aspirin [facility] [address]-00 325 MG Orally Once a day Active 1 tablet ProAir HFA [facility] [address]-26 108 (90 Base) MCG/ACT Inhalation every 4 -6 hrs Jun 23, 2013 Active 2 puffs as needed Social History Social History Element Qualifiers Date Reported Ethnicity . Status , Is georgian your primary language? Yes September 23, 2013 Where or with whom do you live ? . with spouse September 23, 2013 children . 2 September 23, 2013 Tobacco Use: . Are you a: never smoker September 23, 2013 Use of recreational / street drugs? . Answer: No September 23, 2013 Marital Status: . Shiloh September 23, 2013 Do you drink alcohol? . 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 [employer] September 23, 2013 Family history Qualifier Description Comment Date Reported Maternal Grandmother Comment not available September 23, 2013 Paternal Grandmother Comment not available September 23, 2013 Siblings alive diabetes mellitus, COPD September 23, 2013 Maternal Grandfather Comment not available September 23, 2013 Children alive hypertension September 23, 2013 Father colon cancer September 23, 2013 Paternal Grandfather Comment not available September 23, 2013 Mother lung cancer September 23, 2013 Vital Signs Date/Time: September 23, 2013 Weight 245 lbs Height 70 inches Cardiac Monitoring Heart Rate 70 Beats per Minute Blood Pressure Diastolic 70 mm Hg Blood Pressure Systolic 1130 mm Hg Results Ribs Unil 2 View- Left Xray Summary Purpose eClinicalWorks Submission
--- OUTSIDE RECORDS SUMMARY | 2018-07-25 00:37 | XMS REPORT ---
Author Author Jose Alberto Holland Organization eClinicalWorks Address Unknown Phone Unavailable Care Team Providers Care Corporate Physical Security Supervisor Name Role Phone Jose Alberto Holland CP Unavailable Encounters Encounter Location Date Unknown [facility] May 09, 2013 Unknown [facility] Feb 10, 2013 GASKET MAKER- FATIGUE [facility] Jan 17, 2013 cough [facility] Feb 13, 2013 Problems Problem Type Condition ICD-9 Code Onset Dates Condition Status Problem Leg pain 729.5 Active Problem Hyperlipidemia 272.4 Active Problem HTN (hypertension) 401.9 Active Problem Fatigue 780.79 Active Medications Medication Code System Code Instructions Start Date End Date [place] [address]-66 30 mg Orally Once a day Feb 13, 2013 Inactive [place] [address]-48 60 MG Orally Once a day May 09, 2013 Active 1 capsule Social History Social History Element Qualifiers Date Reported Ethnicity . Status , Is nicaraguan your primary language? Yes Mar 04, 2013 Where or with whom do you live ? . with spouse Mar 04, 2013 children . 2 Mar 04, 2013 Tobacco Use: . Are you a: never smoker Mar 04, 2013 Use of recreational / street drugs? . Answer: No Mar 04, 2013 Marital Status: . Shiloh Mar 04, 2013 Do you drink alcohol? . 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
--- OUTSIDE RECORDS SUMMARY | 2018-07-25 00:38 | XMS REPORT | Summary of Care ---
Author Author [facility] Organization [facility] Address Unknown Phone Unavailable Encounter PAMELA Landa(PARTHA) [id number] Date(s): 10/24/17 - 10/24/17 [facility] [address] [address]- [phone] Discharge Disposition: Home or Self Care Attending Physician: Mark Finney MD Referring Physician: Mark Finney MD Vital Signs 1 2 3 Most recent to oldest [Reference Range]: 177.8 cm (10/24/17 12:05 PM) Height 127/65 mmHg (10/24/17 2:00 PM) 120/72 mmHg (10/24/17 1:10 PM) 126/87 mmHg (10/24/17 12:50 PM) Blood Pressure [90-140/60-90 mmHg] 18 BRMIN (10/24/17 2:00 PM) 18 BRMIN (10/24/17 1:10 PM) 17 BRMIN (10/24/17 12:50 PM) Respiratory Rate [14-20 BRMIN] 75 bpm (10/24/17 2:00 PM) 81 bpm (10/24/17 1:10 PM) 86 bpm (10/24/17 12:50 PM) Peripheral Pulse Rate [60-100 bpm] 105.909 kg (10/24/17 12:05 PM) Weight 33.5 m2 (10/24/17 12:05 PM) Body Mass Index Problem List Condition Effective Dates Status Health Status Informant DM - Diabetes Active mellitus(Confirmed) HTN - Resolved Hypertension(Confirm ed) Allergies, Adverse Reactions, Alerts Substance Reaction Severity Status lincomycin Active Soma Active Motrin Active Medications No data available for this section Results ELECTROLYTES Most recent to 1 oldest [Reference Range]: POC Sodium [135-145 136 mEq/L mEq/L] (10/24/17 12:34 PM) POC Potassium 4.8 mEq/L [3.5-5.1 mEq/L] (10/24/17:34 PM) POC Chloride [95-109 100 mEq/L mEq/L] (10/24/17:34 PM) POC Carbon Dioxide 26 mEq/dL [24-32 mEq/dL] (10/24/17:34 PM) POC AGAP [10.0-20.0 16.0 mEq/L mEq/L] (10/24/17:34 PM) CHEM PANEL Most recent to 1 oldest [Reference Range]: eGFR 76 mL/min/1.73m2 1 *NA* (10/24/17 PM) POC Creatinine 1.0 mg/dL [0.5-1.4 mg/dL] (10/24/17:34 PM) POC BUN [7-22 mg/dL] 28 mg/dL *HI* (10/24/17: PM) POC Glucose [70-99 218 mg/dL mg/dL] *HI* (10/24/17:34 PM) POC Ion Ca 1.18 mMol/L [1.05-1.25 mMol/L] (10/24/17:34 PM) 1Result Comment: The eGFR is calculated using the [...] from the National Kidney Disease Education Program ( NKDEP) which additionally recommends that when the eGFR is used in patients with extremes of body mass index for purposes of drug dosing, the eGFR should be mul tiplied by the estimated BMI. HEMATOLOGY Most recent to 1 oldest [Reference Range]: POC Hemoglobin 15.3 g/dL [14.0-18.0 g/dL] (10/24/17 12:34 PM) POC Hematocrit 45.0 % [42.0-54.0 %] (10/24/17 12:34 PM) Immunizations No data available for this section Procedures Procedure Date Related Diagnosis Body Site Status Myelography via lumbar injection, including 10/24/17 Completed radiological supervision and interpretation; lumbosacral Exploratory lumbar laminectomy Completed Lumbar spinal fusion Completed Social History Social History Type Response Assessment and Plan No data available for this section
--- OUTSIDE RECORDS SUMMARY | 2018-07-25 00:38 | XMS REPORT ---
Author Author Georgette Hawley [facility] eClinicalWorks Address Unknown Phone Unavailable Care Team Providers Care Freight Handler Name Role Phone DustinSergio Georgette Unavailable Encounters Encounter Location Date Unknown [facility] May 09, 2013 Unknown [facility] Jun 18, 2013 cassie [facility] Jun 23, 2013 Heart racing [facility] Jun 17, 2013 Unknown [facility] Feb 10, 2013 REFILL [facility] November 25, 2013 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 [facility] Jan 17, 2013 Unknown [facility] January 12, 2014 cough [facility] Feb 13, 2013 Unknown [facility] November 12, 2013 cassie [facility] Jun 26, 2013 fell on ribs [facility] September 23, 2013 Problems Problem Type Condition ICD-9 Code Onset Dates Condition Status Problem Leg pain 729.5 Active Problem Hyperlipidemia 272.4 Active Problem HTN (hypertension) 401.9 Active Problem Fatigue 780.79 Active Problem Diabetes mellitus 250.00 Active Social History Social History Element Qualifiers Date Reported Ethnicity . Status , Is monegasque your primary language? 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
--- OUTSIDE RECORDS SUMMARY | 2018-07-25 00:38 | XMS REPORT ---
Author Author Georgette Hawley [facility] eClinicalWorks Address Unknown Phone Unavailable Care Team Providers Care Power Shovel Mechanic Name Role Phone Georgette Hawley CP Unavailable Encounters Encounter Location Date Unknown [facility] May 09, 2013 Unknown [facility] Jun 18, 2013 cassie [facility] Jun 23, 2013 Heart racing [facility] Jun 17, 2013 Unknown [facility] Feb 10, 2013 REFILL [facility] November 25, 2013 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 [facility] Jan 17, 2013 cough [facility] Feb 13, 2013 Unknown [facility] November 12, 2013 cassie [facility] Jun 26, 2013 fell on ribs [facility] September 23, 2013 Problems Problem Type Condition ICD-9 Code Onset Dates Condition Status Problem Leg pain 729.5 Active Problem Hyperlipidemia 272.4 Active Problem HTN (hypertension) 401.9 Active Problem Fatigue 780.79 Active Problem Diabetes mellitus 250.00 Active Medications Medication Code System Code Instructions Start Date End Date Status D[facility] [address]-26 10 mg Orally Once a day Jun 17, 2013 Active 1 tablet Social History Social History Element Qualifiers Date Reported Ethnicity . Status , Is romanian your primary language? 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
--- OUTSIDE RECORDS SUMMARY | 2018-07-25 00:38 | XMS REPORT | Summary of Care ---
Author Author [facility] Organization [facility] Address Unknown Phone Unavailable Encounter PAMELA Landa(PARTHA) [id number] Date(s): 10/24/17 - 10/24/17 [facility] [address] [address]- [phone] Discharge Disposition: Home or Self Care Attending [...]
--- OUTSIDE RECORDS SUMMARY | 2018-07-25 00:38 | XMS REPORT | Summary of Care ---
Author Author [facility] Organization [facility] Address Unknown Phone Unavailable Encounter PAMELA Landa(PARTHA) [id number] Date(s): 11/19/17 - 11/22/17 [facility] [address] [place] [address]- [phone] Discharge Disposition: Home or Self Care Attending Physician: Mark Finney MD Admitting Physician: Mark Finney MD Referring Physician: Mark Finney MD Vital Signs 1 2 3 Most recent to oldest [Reference Range]: 177.8 cm (11/06/17 2:28 PM) Height 98.1 DegF (11/22/17 7:40 AM) 98.2 DegF (11/22/17 3:58 AM) 98.4 DegF (11/21/17 11:55 PM) Temperature Oral [96.4-99.1 DegF] 139/86 mmHg (11/22/17 7:40 AM) 132/75 mmHg (11/22/17 3:58 AM) 142/79 mmHg *HI* (11/21/17 11:55 PM) Blood Pressure [90-140/60-90 mmHg] 16 BRMIN (11/22/17 7:40 AM) 18 BRMIN (11/22/17 3:58 AM) 18 BRMIN (11/21/17 11:55 PM) Respiratory Rate [14-20 BRMIN] 69 bpm (11/22/17 7:40 AM) 68 bpm (11/22/17 3:58 AM) 62 bpm (11/21/17 11:55 PM) Peripheral Pulse Rate [60-100 bpm] 105.909 kg (11/19/17 7:50 AM) Weight 33.5 m2 (11/19/17 7:50 AM) Body Mass Index Problem List Condition Effective Dates Status Health Status Informant Asthma(Confirmed)1 Active MRSA (methicillin 2008 Active resistant staph aureus) culture positive(Confirmed)2 Depression(Confirmed Active ) Acid Active reflux(Confirmed) HTN - Active Hypertension(Confirm ed) Obesity(Confirmed) Active Paroxysmal atrial Active fibrillation(Confirm ed) DM (diabetes Active mellitus), type 2(Confirmed) Hepatitis Resolved C(Confirmed) 1last attack 3 yrs ago. 2from cellulitis in left forearm/elbow Allergies, Adverse Reactions, Alerts Substance Reaction Severity Status lincomycin rash Active Soma rash Active Zofran1 didn't work Active Motrin rash Active oxyCODONE severe N/V Active 1wife and Patient say that the Zofran made him Vomit Medications acetaminophen (ANES) 10 mg Route: IV, Drug form: INJ, Start date: 11/19/17 10:40:00 CDT, Stop date: 8 11:40:00 CDT Start Date: 11/19/17 Stop Date: 11/19/17 Status: Completed acetaminophen-hydrocodone 325 mg-10 mg oral tablet 1 tab, PO, Q6H, PRN Pain Score 4-6, # 60 tab, 0 Refill(s), given to patient Start Date: 11/20/17 Stop Date: 12/20/17 Status: Ordered acetaminophen-hydrocodone 325 mg-10 mg oral tablet 2 tab, Route: PO, Drug Form: TAB, Dosing Weight 105.909, kg, Q4H, PRN Pain Score 4-6, Start date: 11/19/17 11:20:00 CDT, Duration: 30 day, Stop date: 12/19/17 1 1:19:00 CDT Notes: Do not exceed 4gm/day of acetaminophen. (Same as: Jelm 325/10) Start Date: 11/19/17 Stop Date: 11/22/17 Status: Discontinued Al hydroxide/Mg hydroxide/simethicone 200 mg-200 mg-20 mg/5 mL oral suspension 30 ml, Route: PO, Drug Form: SUSP, Dosing Weight 105.909, kg, Q4H, PRN Indigesti on, Start date: 11/19/17 11:20:00 CDT, Duration: 30 day, Stop date: 12/19/17 11: 19:00 CDT Notes: (aluminum hydroxide-magnesium hyd- simethicone [phone]/5ml 30 ml ud GEO) Start Date: 11/19/17 Stop Date: 11/22/17 Status: Discontinued albuterol 0.083% inhalation solution 2.49 mg, 3 mL, Route: NEB, Drug form: SOLN, PRN, Dosing Weight 105.909, kg, PRN Respiratory Pathway, Start date: 11/19/17 8:37:00 CDT, Duration: 30 day, Stop da te: 12/19/17 8:36:00 CDT Notes: SEE RT DOCUMENTATION (Same as: Proventil) Start Date: 11/19/17 Stop Date: 11/22/17 Status: Discontinued amLODIPine 5 mg, 1 tab, Route: PO, Drug form: TAB, Daily, Dosing Weight 105.909, kg, Start date: 11/19/17 9:00:00 CDT, Duration: 30 day, Stop date: 12/18/17 9:00:00 CDT Notes: (Same as: Norvasc) Start Date: 11/19/17 Stop Date: 11/22/17 Status: Discontinued amLODIPine 5 mg, PO, Daily, 0 Refill(s) Start Date: 11/06/17 Status: Ordered ANES acetaminophen 1,000 mg, 2 tab, Route: PO, Drug form: TAB, ONCE, Dosing Weight 105.909, kg, PRN Pain Score 1-3, Start date: 11/19/17 11:30:00 CDT Notes: Max acetaminophen 4000 mg/day (4 gm/day). (Same as: Tylenol Extra Streng th) Start Date: 11/19/17 Stop Date: 11/19/17 Status: Discontinued ANES flumazenil 0.2 mg, 2 mL, Route: IVP, Drug form: INJ, PRN, Dosing Weight 105.909, kg, PRN Be nzodiazepine Reversal, Initial dose, Start date: 11/19/17 11:30:00 CDT, Stop parish e: 11/19/17 22:00:00 CDT Notes: (Same as: Romazicon) Start Date: 11/19/17 Stop Date: 11/19/17 Status: Discontinued ANES hydrALAZINE 10 mg, 0.5 mL, Route: IVP, Drug form: INJ, Q20Min, Dosing Weight 105.909, kg, NV N Elevated BP, Start date: 11/19/17 11:30:00 CDT, Duration: 2 doses or times, St op date: 11/19/17 22:00:00 CDT Notes: (Same as: Apresoline)Push over 5 minutes Start Date: 11/19/17 Stop Date: 11/19/17 Status: Discontinued ANES HYDROmorphone 0.5 mg, 0.25 mL, Route: IVP, Drug form: INJ, Q5Min, Dosing Weight 105.909, kg, P RN Pain Score 7-10, Start date: 11/19/17 11:30:00 CDT, Duration: 4 doses or time s, Stop date: 11/19/17 22:00:00 CDT Notes: Same as Dilaudid Start Date: 11/19/17 Stop Date: 11/19/17 Status: Discontinued ANES labetalol 10 mg, 2 mL, Route: IVP, Drug form: INJ, Q5Min, Dosing Weight 105.909, kg, PRN E levated BP, Start date: 11/19/17 11:30:00 CDT, Duration: 5 doses or times, Stop date: 11/19/17 22:00:00 CDT Start Date: 11/19/17 Stop Date: 11/19/17 Status: Discontinued ANES meperidine 12.5 mg, 0.5 mL, Route: IVP, Drug form: INJ, Q30Min, Dosing Weight 105.909, kg, PRN Other -See Comment, For shivering, Start date: 11/19/17 11:30:00 CDT, Durati on: 2 doses or times, Stop date: 11/19/17 22:00:00 CDT Notes: (Same as: Demerol) "Use Precaution in Elderly, Seizure disorders, and Re nal impairment" Start Date: 11/19/17 Stop Date: 11/19/17 Status: Discontinued ANES morphine Sulfate 2 mg, 0.2 mL, Route: IVP, Drug form: INJ, Q5Min, Dosing Weight 105.909, kg, PRN Pain Score 4-6, Start date: 11/19/17 11:30:00 CDT, Duration: 5 doses or times, S top date: 11/19/17 22:00:00 CDT Notes: (Same as:MORPhine Sulfate) Start Date: 11/19/17 Stop Date: 11/19/17 Status: Discontinued ANES naloxone 0.4 mg, 1 mL, Route: IVP, Drug form: INJ, Q2MIN, Dosing Weight 105.909, kg, PRN Narcotic Reversal, Start date: 11/19/17 11:30:00 CDT, Duration: 8 doses or times , Stop date: 11/19/17 22:00:00 CDT Notes: Same as Narcan Start Date: 11/19/17 Stop Date: 11/19/17 Status: Discontinued ANES promethazine 6.25 mg, 0.25 mL, Route: IVPB, Drug form: INJ, ONCE, Dosing Weight 105.909, kg, PRN Nausea & Vomiting, Start date: 11/19/17 11:30:00 CDT Notes: Do not give IV push. (Same as: Phenergan) Start Date: 11/19/17 Stop Date: 11/19/17 Status: Discontinued aspirin 325 mg, PO, Daily, 0 Refill(s) Start Date: 11/06/17 Stop Date: 11/20/17 Status: Discontinued Benadryl 25 mg, 1 cap, Route: PO, Drug form: CAP, TID, Dosing Weight 105.909, kg, PRN Itc cynthia, Start date: 11/19/17 8:32:00 CDT, Duration: 30 day, Stop date: 12/19/17 8: 31:00 CDT Notes: (Same as: Benadryl) Start Date: 11/19/17 Stop Date: 11/19/17 Status: Discontinued ceFAZolin (ANES) Route: IV, Drug form: INJ, ONCE, Stop date: 11/19/17 10:27:00 CDT Start Date: 11/19/17 Stop Date: 11/19/17 Status: Completed ceFAZolin (SCIP) 2 gm, 100 mL, Route: IVPB, Drug form: INJ, ABXQ8H, Dosing Weight 105.909, kg, St art date: 11/19/17 18:00:00 CDT, Duration: 3 doses or times, Stop date: 11/20/17 10:00:00 CDT, ABX Indication: Surgical Prophylaxis Notes: Same as: Ancef Start Date: 11/19/17 Stop Date: 11/20/17 Status: Completed D5W 1/2NS + KCL 20mEq/L 1000ml (Premix) 1,000 mL 1,000 mL, Rate: 75 ml/hr, Infuse over: 13.3 hr, Route: IV, Dosing Weight 105.909 kg, Total Volume: 1,000, Start date: 11/19/17 11:20:00 CDT, Duration: 30 day, S top date: 12/19/17 11:19:00 CDT, 2.31, m2 Notes: PREMIX IV - Do Not AlterWASTE: F/P - Sink; E - Municipal Trash Bin Start Date: 11/19/17 Stop Date: 11/19/17 Status: Discontinued dexamethasone 10 mg, 1 mL, Route: IVP, Drug form: INJ, Q8H, Dosing Weight 105.909, kg, Start d ate: 11/19/17 16:00:00 CDT, Duration: 2 day, Stop date: 11/21/17 8:00:00 CDT Notes: MEDICATION WASTE Product Size: 10 mgProduct Wasted: ___ mg Start Date: 11/19/17 Stop Date: 11/21/17 Status: Completed dexamethasone (ANES) Route: IV, Drug form: INJ, ONCE, Stop date: 11/19/17 10:42:00 CDT Start Date: 11/19/17 Stop Date: 11/19/17 Status: Completed Dextrose 50% Syringe 25 gm, 50 mL, Route: IVP, Drug Form: INJ, Dosing Weight 105.909, kg, PRN, PRN Bl ood Glucose Results, Start date: 11/19/17 8:35:00 CDT, Duration: 30 day, Stop da te: 12/19/17 8:34:00 CDT Start Date: 11/19/17 Stop Date: 11/22/17 Status: Discontinued Dextrose 50% Syringe 12.5 gm, 25 mL, Route: IVP, Drug Form: INJ, Dosing Weight 105.909, kg, PRN, PRN Blood Glucose Results, Start date: 11/19/17 8:35:00 CDT, Duration: 30 day, Stop date: 12/19/17 8:34:00 CDT Start Date: 11/19/17 Stop Date: 11/22/17 Status: Discontinued diphenhydrAMINE 25 mg, 1 cap, Route: PO, Drug form: CAP, Bedtime, Dosing Weight 105.909, kg, PRN Insomnia, Start date: 11/19/17 11:20:00 CDT, Duration: 30 day, Stop date: 12/19 11:19:00 CDT Notes: (Same as: Benadryl) Start Date: 11/19/17 Stop Date: 11/22/17 Status: Discontinued diphenhydrAMINE 12.5 mg, 5 mL, Route: PO, Drug form: LIQ, Q6H, Dosing Weight 105.909, kg, PRN It sesar, Start date: 11/19/17 11:20:00 CDT, Duration: 30 day, Stop date: 12/19/17 11:19:00 CDT Notes: (Same as: Benadryl) Start Date: 11/19/17 Stop Date: 11/22/17 Status: Discontinued docusate 100 mg, 1 cap, Route: PO, Drug form: CAP, BID, Dosing Weight 105.909, kg, Start date: 11/19/17 17:00:00 CDT, Duration: 30 day, Stop date: 12/19/17 9:00:00 CDT Notes: (Same as: Colace) (Do Not Crush) Start Date: 11/19/17 Stop Date: 11/19/17 Status: Discontinued docusate sodium 100 mg oral capsule 100 mg=1 cap, PO, BID, # 30 cap, 0 Refill(s) Start Date: 11/21/17 Status: Ordered docusate sodium 100 mg oral capsule 100 mg, 1 cap, Route: PO, Drug form: CAP, BID, Dosing Weight 105.909, kg, Start date: 11/19/17 17:00:00 CDT, Duration: 30 day, Stop date: 12/19/17 9:00:00 CDT Notes: (Same as: Colace) (Do Not Crush) Start Date: 11/19/17 Stop Date: 11/22/17 Status: Discontinued Dulcolax Laxative 5 mg, 1 tab, Route: PO, Drug form: ECTAB, Q24H, Dosing Weight 105.909, kg, PRN C onstipation, Start date: 11/19/17 11:20:00 CDT, Duration: 30 day, Stop date: 10/03 11:19:00 CDT Notes: (Same As: Dulcolax, Correctol) (Do Not Crush) "Do Not Crush" Start Date: 11/19/17 Stop Date: 11/22/17 Status: Discontinued DULoxetine 60 mg, 1 cap, Route: PO, Drug form: DRC, Daily, Dosing Weight 105.909, kg, Start date: 11/19/17 9:00:00 CDT, Stop date: 12/18/17 9:00:00 CDT Notes: (Same as: Cymbalta) (Do Not Crush) Start Date: 11/19/17 Stop Date: 11/22/17 Status: Discontinued DULoxetine 60 mg oral delayed release capsule 60 mg=1 cap, PO, Daily, # 30 cap, 0 Refill(s) Start Date: 11/06/17 Status: Ordered ePHEDrine (ANES) Route: IV, Drug form: INJ, ONCE, Stop date: 11/19/17 10:47:00 CDT Start Date: 11/19/17 Stop Date: 11/19/17 Status: Completed fentaNYL (ANES) Route: IV, Drug form: INJ, ONCE, Stop date: 11/19/17 10:42:00 CDT Start Date: 11/19/17 Stop Date: 11/19/17 Status: Completed flecainide 100 mg, 2 tab, Route: PO, Drug form: TAB, Q12H, Dosing Weight 105.909, kg, Start date: 11/19/17 21:00:00 CDT, Duration: 30 day, Stop date: 12/19/17 9:00:00 CDT Notes: (Same as: Tambocor) Start Date: 11/19/17 Stop Date: 11/19/17 Status: Deleted flecainide 100 mg oral tablet 100 mg=1 tab, PO, Q12H, # 180 tab, 0 Refill(s) Start Date: 11/06/17 Status: Ordered Flecainide 100mg Flecainide 100mg, 1 tab, Drug form: MISC, Route: PO, Q12H, 11/19/17 21:00:00 CDT , Duration: 30 day, Stop date: 12/19/17 9:00:00 CDT Start Date: 11/19/17 Stop Date: 11/22/17 Status: Discontinued Flomax 0.4 mg, 1 cap, Route: PO, Drug form: CAP, Daily, Dosing Weight 105.909, kg, Star t date: 11/21/17 12:00:00 CDT, Stop date: 12/21/17 12:00:00 CDT Notes: (Same As: Flomax) "Do Not Crush" Start Date: 11/21/17 Stop Date: 11/22/17 Status: Discontinued glucagon 1 mg, Route: IM, Drug form: PDR/INJ, PRN, Dosing Weight 105.909, kg, PRN Blood G lucose Results, Start date: 11/19/17 8:35:00 CDT, Duration: 30 day, Stop date: 0 12/19/17 8:34:00 CDT Start Date: 11/19/17 Stop Date: 11/22/17 Status: Discontinued glycopyrrolate (ANES) Route: IV, Drug form: INJ, ONCE, Stop date: 11/19/17 11:21:00 CDT Start Date: 11/19/17 Stop Date: 11/19/17 Status: Completed Home Medication PO, Daily, Refill(s) 0 Start Date: 11/06/17 Stop Date: 11/20/17 Status: Discontinued HYDROmorphone 0.5mg/mL QUICK PRINT OPERATOR (15mg/30 mL) 15 mg 15 mg, 30 mL, Route: IV, Initial Loading Dose: 0.4mg, QUICK PRINT OPERATOR Dose: 0.3 mg, QUICK PRINT OPERATOR Lock out: 15 minutes, Continuous Basal Rate: 0 mg, 4 Hour Limit (In MG): 7, Drug Form : INJ, Continuous, Start date: 11/19/17 11:20:00 CDT, Duration: 30 day, Stop parish e: 12/19/17... Notes: (Same as: Dilaudid) conc=0.5 mg/mlHydromorphone QU[employer] PRINT OPERATOR Dose: ;Delay: ;Basal: Start Date: 11/19/17 Stop Date: 11/22/17 Status: Discontinued insulin isophane (NPH) 100 units/mL human recombinant subcutaneous suspension 30 unit, SUB-Q, BID, 0 Refill(s) Start Date: 11/20/17 Status: Ordered insulin lispro 5 unit, 0.05 mL, Route: SUB-Q, Drug form: SOLN, TID-Before Meals, Dosing Weight 105.909, kg, PRN Blood Glucose Results, Start date: 11/19/17 8:35:00 CDT, Durati on: 30 day, Stop date: 12/19/17 8:34:00 CDT Notes: (Same as: Humalog ) Roll in palms of hands gently; Do not shake `vigorou sly. "Single Patient Use Only " WASTE: F/P - Black; E - Municipal Trash Bin St able for 28 days at room temperature.Expires in days from Da te Start Date: 11/19/17 Stop Date: 11/22/17 Status: Discontinued insulin lispro 3 unit, 0.03 mL, Route: SUB-Q, Drug form: SOLN, TID-Before Meals, Dosing Weight 105.909, kg, PRN Blood Glucose Results, Start date: 11/19/17 8:35:00 CDT, Durati on: 30 day, Stop date: 12/19/17 8:34:00 CDT Notes: (Same as: Humalog ) Roll in palms of hands gently; Do not shake `vigorou sly. "Single Patient Use Only " WASTE: F/P - Black; E - [facility] Trash Bin St able for 28 days at room temperature.Expires in days from Da te Start Date: 11/19/17 Stop Date: 11/22/17 Status: Discontinued insulin lispro 1 unit, 0.01 mL, Route: SUB-Q, Drug form: SOLN, TID-Before Meals, Dosing Weight 105.909, kg, PRN Blood Glucose Results, Start date: 11/19/17 8:35:00 CDT, Durati on: 30 day, Stop date: 12/19/17 8:34:00 CDT Notes: (Same as: Humalog ) Roll in palms of hands gently; Do not shake `vigorou sly. "Single Patient Use Only " WASTE: F/P - Black; E - [facility] Trash [facility] St able for 28 days at room temperature.Expires in days from Da te Start Date: 11/19/17 Stop Date: 11/22/17 Status: Discontinued insulin lispro 2 unit, 0.02 mL, Route: SUB-Q, Drug form: SOLN, TID-Before Meals, Dosing Weight 105.909, kg, PRN Blood Glucose Results, Start date: 11/19/17 8:35:00 CDT, Durati on: 30 day, Stop date: 12/19/17 8:34:00 CDT Notes: (Same as: Humalog ) Roll in palms of hands gently; Do not shake `vigorou sly. "Single Patient Use Only " WASTE: F/P - Black; E - [facility] Trash [facility] St able for 28 days at room temperature.Expires in days from Da te Start Date: 11/19/17 Stop Date: 11/22/17 Status: Discontinued insulin lispro 4 unit, 0.04 mL, Route: SUB-Q, Drug form: SOLN, TID-Before Meals, Dosing Weight 105.909, kg, PRN Blood Glucose Results, Start date: 11/19/17 8:35:00 CDT, Durati on: 30 day, Stop date: 12/19/17 8:34:00 CDT Notes: (Same as: Humalog ) Roll in palms of hands gently; Do not shake `vigorou sly. "Single Patient Use Only " WASTE: F/P - Black; E - [facility] Trash [facility] St able for 28 days at room temperature.Expires in days from Da te Start Date: 11/19/17 Stop Date: 11/22/17 Status: Discontinued insulin regular 100 units/mL human recombinant 30 unit, SUB-Q, TID-Before Meals, 0 Refill(s) Start Date: 11/20/17 Status: Ordered insulin regular 100 units/mL human recombinant 25 unit, 0.25 mL, Route: SUB-Q, Drug form: SOLN, ONCE, Start date: 11/19/17 18:2 5:00 CDT, Stop date: 11/19/17 18:25:00 CDT Notes: (Same as: Humulin R) Roll in palms of hands gently; Do not shake vigorou sly. "single patient use only"(Restricted to patients requiring a dose > 60 units)WASTE: F/P - Black; E - Municipal Trash Bin Stable for 28 days at room temperatureExpires in days from Date Start Date: 11/19/17 Stop Date: 11/19/17 Status: Completed Lactated Ringers Injection IV (ANES) 1000 mL Route: IV, Total Volume: 1,000, Start date: 11/19/17 9:23:00 CDT, Stop date: 10/03 10:23:00 CDT Start Date: 11/19/17 Stop Date: 11/19/17 Status: Completed Lactated Ringers IV 1,000 mL 1,000 mL, Rate: 40 ml/hr, Infuse over: 25 hr, Route: IV, Dosing Weight 105.909 k g, Total Volume: 1,000, Start date: 11/19/17 8:04:00 CDT, Duration: 30 day, Stop date: 12/19/17 8:03:00 CDT, 2.31, m2 Start Date: 11/19/17 Stop Date: 11/19/17 Status: Discontinued lidocaine (ANES) Route: IV, Drug form: INJ, ONCE, Stop date: 11/19/17 10:42:00 CDT Start Date: 11/19/17 Stop Date: 11/19/17 Status: Completed Medrol Dosepak 4 mg oral tablet See Instructions, PO, Take by mouth as directed on label., # 1 Pack, 0 Refill(s) Start Date: 11/21/17 Stop Date: 11/27/17 Status: Ordered metFORMIN 1,000 mg, PO, BID, 0 Refill(s) Start Date: 11/06/17 Status: Ordered midazolam (ANES) Route: IV, Drug form: SOLN, ONCE, Stop date: 11/19/17 10:42:00 CDT Start Date: 11/19/17 Stop Date: 11/19/17 Status: Completed Milk of Magnesia 30 ml, Route: PO, Drug Form: SUSP, Dosing Weight 105.909, kg, Daily, until BM, S tart date: 11/20/17 9:00:00 CDT, Duration: 30 day, Stop date: 12/19/17 9:00:00 C DT Notes: (Same as: Milk of Magnesia, MOM) Start Date: 11/20/17 Stop Date: 11/22/17 Status: Discontinued naloxone 0.04 mg, 0.1 mL, Route: IVP, Drug form: INJ, Q2MIN, Dosing Weight 105.909, kg, P RN Narcotic Reversal, Start date: 11/19/17 11:20:00 CDT, Duration: 30 day, Stop date: 12/19/17 11:19:00 CDT Notes: Same as Narcan Start Date: 11/19/17 Stop Date: 11/22/17 Status: Discontinued neostigmine (ANES) Route: IV, Drug form: INJ, ONCE, Stop date: 11/19/17 11:21:00 CDT Start Date: 11/19/17 Stop Date: 11/19/17 Status: Completed Jelm 10/325 oral tablet 1-2 tab, PO, Q4-6H, PRN Pain, X 7 day, # 80 tab, 0 Refill(s) Start Date: 11/21/17 Stop Date: 11/28/17 Status: Ordered normal saline 0.9% IV 1,000 mL 1,000 mL, Rate: 75 ml/hr, Infuse over: 13.3 hr, Route: IV, Dosing Weight 105.909 kg, Total Volume: 1,000, Start date: 11/19/17 14:32:00 CDT, Duration: 30 day, S top date: 12/19/17 14:31:00 CDT, 2.31, m2 Start Date: 11/19/17 Stop Date: 11/22/17 Status: Discontinued NovoLIN N 35 unit, 0.35 mL, Route: SUB-Q, Drug form: INJ, BID, Dosing Weight 105.909, kg, Start date: 11/19/17 17:00:00 CDT, Stop date: 12/19/17 9:00:00 CDT Notes: Roll in palms of hands gently; Do not shake vigorously. (Same as: Humuli n N)Do not hold insulin without contacting prescriberWASTE: F/P - Black; E - [facility] Trash Bin Stable for 28 days at room temperatureExpires in days f rom Date Start Date: 11/19/17 Stop Date: 11/22/17 Status: Discontinued NovoLIN N 100 units/mL 30 unit, SUB-Q, BID, # 10 ml, 0 Refill(s) Start Date: 11/06/17 Stop Date: 11/20/17 Status: Discontinued NovoLIN R 33 unit, 0.33 mL, Route: SUB-Q, Drug form: SOLN, TID-Before Meals, Dosing Weight 105.909, kg, Start date: 11/19/17 11:30:00 CDT, Stop date: 12/19/17 7:30:00 CDT Notes: (Same as: Humulin R) Roll in palms of hands gently; Do not shake vigorou sly. "single patient use only"(Restricted to patients requiring a dose > 60 units)WASTE: F/P - Black; E - [facility] Trash Bin Stable for 28 days at room temperatureExpires in days from Date Start Date: 11/19/17 Stop Date: 11/22/17 Status: Discontinued NovoLIN R 100 units/mL injectable solution 30 unit, SUB-Q, TID-Before Meals, # 10 mL, 0 Refill(s) Start Date: 11/06/17 Stop Date: 11/20/17 Status: Discontinued omeprazole 20 mg, 1 cap, Route: PO, Drug form: DRC, Daily, Dosing Weight 105.909, kg, Start date: 11/20/17 9:00:00 CDT, Duration: 30 day, Stop date: 12/19/17 9:00:00 CDT Notes: Take 1 hour before or 2 hours after meal; Non-Formulary Drug"Do Not Crush " (Same as: Prilosec) Start Date: 11/20/17 Stop Date: 11/19/17 Status: Discontinued phenylephrine (ANES) Route: IV, Drug form: INJ, ONCE, Stop date: 11/19/17 10:47:00 CDT Start Date: 11/19/17 Stop Date: 11/19/17 Status: Completed Prilosec OTC 20 mg oral enteric coated tablet 20 mg=1 tab, PO, Daily, # 30 tab, 0 Refill(s) Start Date: 11/06/17 Status: Ordered propofol (ANES) Route: IV, Drug form: INJ, ONCE, Stop date: 11/19/17 10:42:00 CDT Start Date: 11/19/17 Stop Date: 11/19/17 Status: Completed propofol (ANES) 10 mg Route: IV, Drug form: INJ, Start date: 11/19/17 9:55:00 CDT, Stop date: 11/19/17 10:55:00 CDT Start Date: 11/19/17 Stop Date: 11/19/17 Status: Completed Protonix 40 mg, 1 tab, Route: PO, Drug form: ECTAB, Daily, Start date: 11/20/17 9:00:00 C DT, Duration: 30 day, Stop date: 12/19/17 9:00:00 CDT Notes: Tablet should not be chewed or crushed.(Same as: Protonix) Start Date: 11/20/17 Stop Date: 11/22/17 Status: Discontinued ramipril 5 mg, 1 cap, Route: PO, Drug form: CAP, Daily, Dosing Weight 105.909, kg, Start date: 11/20/17 9:00:00 CDT, Duration: 30 day, Stop date: 12/19/17 9:00:00 CDT Notes: (Same as:Altace) Start Date: 11/20/17 Stop Date: 11/22/17 Status: Discontinued ramipril 5 mg oral capsule 5 mg=1 cap, PO, Daily, # 30 cap, 1 Refill(s) Start Date: 11/06/17 Stop Date: 12/06/17 Status: Ordered rocuronium (ANES) Route: IV, Drug form: INJ, ONCE, Stop date: 11/19/17 10:42:00 CDT Start Date: 11/19/17 Stop Date: 11/19/17 Status: Completed Saline Flush 0.9% 10 ml, Route: IVP, Drug Form: INJ, Dosing Weight 105.909, kg, PRN, PRN Line Flus h, Start date: 11/19/17 11:20:00 CDT, Duration: 30 day, Stop date: 12/19/17 11:1 9:00 CDT Notes: Same as: BD Posiflush Sterile Start Date: 11/19/17 Stop Date: 11/22/17 Status: Discontinued Senna 187mg 8.6 mg, 1 tab, Route: PO, Drug Form: TAB, Dosing Weight 105.909, kg, Daily, Star t date: 11/20/17 9:00:00 CDT, Duration: 30 day, Stop date: 12/19/17 9:00:00 CDT Notes: (Same as: Smita) Start Date: 11/20/17 Stop Date: 11/22/17 Status: Discontinued succinylcholine (ANES) Route: IV, Drug form: INJ, ONCE, Stop date: 11/19/17 10:42:00 CDT Start Date: 11/19/17 Stop Date: 11/19/17 Status: Completed trazodone 25 mg, 0.5 tab, Route: PO, Drug form: TAB, Bedtime, Dosing Weight 105.909, kg, P RN Insomnia, Start date: 11/19/17 11:20:00 CDT, Duration: 30 day, Stop date: 10/03 11:19:00 CDT Notes: (Same As: Aixa) Start Date: 11/19/17 Stop Date: 11/22/17 Status: Discontinued trazodone 50 mg oral tablet 50 mg, 1 tab, Route: PO, Drug form: TAB, Bedtime, Dosing Weight 105.909, kg, PRN Insomnia, Start date: 11/19/17 8:32:00 CDT, Duration: 30 day, Stop date: 8:31:00 CDT Notes: (Same As: [facility]) Start Date: 11/19/17 Stop Date: 11/22/17 Status: Discontinued Zanaflex 2 mg, 0.5 tab, Route: PO, Drug form: TAB, Q8H, Dosing Weight 105.909, kg, Start date: 11/19/17 16:00:00 CDT, Duration: 30 day, Stop date: 12/19/17 8:00:00 CDT Notes: (Same As: Zanaflex) Start Date: 11/19/17 Stop Date: 11/22/17 Status: Discontinued Zanaflex 4 mg oral capsule 4 mg=1 cap, PO, TID, # 40 cap, 0 Refill(s) Start Date: 11/21/17 Status: Ordered Results BLOOD BANK RESULTS 1 2 3 Most recent to oldest [Reference Range]: O POS *Unknown* (11/19/17 7:28 AM) O POS *Unknown* (11/07/17 8:15 AM) ABO/Rh Negative (11/19/17 7:28 AM) Negative (11/07/17 8:15 AM) Antibody Scrn ELECTROLYTES 1 2 3 Most recent to oldest [Reference Range]: 134 mEq/L *LOW* (11/20/17 4:59 AM) 139 mEq/L (11/07/17 8:15 AM) Sodium Lvl [135-145 mEq/L] 4.5 mEq/L (11/20/17 4:59 AM) 3.8 mEq/L (11/07/17 8:15 AM) Potassium Lvl [3.5-5.1 mEq/L] 101 mEq/L (11/20/17 4:59 AM) 103 mEq/L (11/07/17 8:15 AM) Chloride Lvl [95-109 mEq/L] 24 mEq/L (11/20/17 4:59 AM) 23 mEq/L *LOW* (11/07/17 8:15 AM) CO2 [24-32 mEq/L] 13.5 mEq/L (11/20/17 4:59 AM) 16.8 mEq/L (11/07/17 8:15 AM) AGAP [10.0-20.0 mEq/L] CHEM PANEL 1 2 3 Most recent to oldest [Reference Range]: 1.07 mg/dL (11/20/17 4:59 AM) 1.04 mg/dL (11/07/17 8:15 AM) Creatinine Lvl [0.50-1.40 mg/dL] 70 mL/min/1.73m2 1 *NA* (11/20/17 4:59 AM) 73 mL/min/1.73m2 2 *NA* (11/07/17 8:15 AM) eGFR 19 mg/dL (11/20/17 4:59 AM) 18 mg/dL (11/07/17 8:15 AM) BUN [7-22 mg/dL] 17 (11/07/17 8:15 AM) B/C Ratio [6-25] 210 mg/dL *HI* (11/20/17 4:59 AM) 199 mg/dL *HI* (11/07/17 8:15 AM) Glucose Lvl [70-99 mg/dL] 7.4 g/dL (11/07/17 8:15 AM) Total Protein [6.4-8.4 g/dL] 3.2 g/dL *LOW* (11/07/17 8:15 AM) Albumin Lvl [3.5-5.0 g/dL] 4.2 g/dL (11/07/17 8:15 AM) Globulin [2.7-4.2 g/dL] 0.8 (11/07/17 8:15 AM) A/G Ratio [0.7-1.6] 8.4 mg/dL *LOW* (11/20/17 4:59 AM) 8.6 mg/dL (11/07/17 8:15 AM) Calcium Lvl [8.5-10.5 mg/dL] 46 unit/L (11/07/17 8:15 AM) ALT [0-65 unit/L] 33 unit/L (11/07/17 8:15 AM) AST [0-37 unit/L] 115 unit/L (11/07/17 8:15 AM) Alk Phos [39-136 unit/L] 0.2 mg/dL (11/07/17 8:15 AM) Bili Total [0.2-1.3 mg/dL] 1Result Comment: The eGFR is calculated using [...] be mul tiplied by the estimated BMI. 2Result Comment: The eGFR is calculated using the [...] be mul tiplied by the estimated BMI. SPECIAL CHEMISTRY 1 2 3 Most recent to oldest [Reference Range]: 6.9 % *HI* (11/07/17 8:15 AM) Hgb A1C [<=5.6 %] HEMATOLOGY 1 2 3 Most recent to oldest [Reference Range]: 22.2 K/CMM *HI* (11/21/17 5:18 AM) 20.7 K/CMM *HI* (11/20/17 4:59 AM) 9.9 K/CMM (11/07/17 8:15 AM) WBC [3.7-10.4 K/CMM] 4.03 M/CMM *LOW* (11/21/17 5:18 AM) 4.40 M/CMM *LOW* (11/20/17 4:59 AM) 4.68 M/CMM *LOW* (11/07/17 8:15 AM) RBC [4.70-6.10 M/CMM] 11.9 g/dL *LOW* (11/21/17 5:18 AM) 12.7 g/dL *LOW* (11/20/17 4:59 AM) 13.7 g/dL *LOW* (11/07/17 8:15 AM) Hgb [14.0-18.0 g/dL] 35.1 % *LOW* (11/21/17:18 AM) 38.0 % *LOW* (11/20/17 4:59 AM) 41.2 % *LOW* (11/07/17 8:15 AM) Hct [42.0-54.0 %] 87.2 fL (11/21/17:18 AM) 86.4 fL (11/20/17 4:59 AM) 88.0 fL (11/07/17 8:15 AM) MCV [80.0-94.0 fL] 29.5 pg (11/21/17:18 AM) 28.9 pg (11/20/17 4:59 AM) 29.3 pg (11/07/17 8:15 AM) MCH [27.0-31.0 pg] 33.9 g/dL (11/21/17:18 AM) 33.4 g/dL (11/20/17 4:59 AM) 33.3 g/dL (11/07/17 8:15 AM) MCHC [32.0-36.0 g/dL] 13.1 % (11/21/17:18 AM) 13.2 % (11/20/17 4:59 AM) 13.2 % (11/07/17 8:15 AM) RDW [11.5-14.5 %] 8.3 fL (11/21/17:18 AM) 7.9 fL (11/20/17 4:59 AM) 8.3 fL (11/07/17 8:15 AM) MPV [7.4-10.4 fL] 227 K/CMM (11/21/17:18 AM) 246 K/CMM (11/20/17 4:59 AM) 261 K/CMM (11/07/17 8:15 AM) Platelet [133-450 K/CMM] 85.3 % *HI* (11/21/17 5:18 AM) 85.4 % *HI* (11/20/17 4:59 AM) 62.1 % (11/07/17 8:15 AM) Segs [45.0-75.0 %] 5.3 % *LOW* (11/21/17 5:18 AM) 6.2 % *LOW* (11/20/17 4:59 AM) 24.5 % (11/07/17 8:15 AM) Lymphocytes [20.0-40.0 %] 9.3 % (11/21/17 5:18 AM) 8.4 % (11/20/17 4:59 AM) 10.7 % (11/07/17 8:15 AM) Monocytes [2.0-12.0 %] 2.1 % (11/07/17 8:15 AM) Eosinophils [0.0-4.0 %] 0.1 % (11/21/17 5:18 AM) 0.6 % (11/07/17 8:15 AM) Basophils [0.0-1.0 %] 19.0 K/CMM *HI* (11/21/17 5:18 AM) 17.7 K/CMM *HI* (11/20/17 4:59 AM) 6.1 K/CMM (11/07/17 8:15 AM) Segs-Bands # [1.5-8.1 K/CMM] 1.2 K/CMM (11/21/17 5:18 AM) 1.3 K/CMM (11/20/17 4:59 AM) 2.4 K/CMM (11/07/17 8:15 AM) Lymphocytes # [1.0-5.5 K/CMM] 2.1 K/CMM *HI* (11/21/17 5:18 AM) 1.7 K/CMM *HI* (11/20/17 4:59 AM) 1.1 K/CMM *HI* (11/07/17 8:15 AM) Monocytes # [0.0-0.8 K/CMM] 0.2 K/CMM (11/07/17 8:15 AM) Eosinophils # [0.0-0.5 K/CMM] 0.1 K/CMM (11/07/17 8:15 AM) Basophils # [0.0-0.2 K/CMM] Normal (11/21/17 5:18 AM) RBC Morph Normal (11/21/17 5:18 AM) Plt Morph 12.6 seconds (11/07/17 8:15 AM) PT [12.0-14.7 seconds] 0.94 (11/07/17 8:15 AM) INR [0.85-1.17] 30.3 seconds (11/07/17 8:15 AM) PTT [22.9-35.8 seconds] Immunizations No data available for this section Procedures Procedure Date Related Diagnosis Body Site Status Spinal fusion 11/19/17 Completed Exploratory lumbar laminectomy 1984 Completed Cataract extraction and insertion of Completed intraocular lens Lumbar spinal fusion Completed Rotator cuff repair Completed Social History Social History Type Response Exercise 1 Alcohol Past Smoking Status Never smoker; Exposure to Tobacco Smoke None; Cigarette Smoking Last 365 Days No; Reg Smoking Cessation Counseling No entered on: 11/19/17 1Denies sob on exertion Assessment and Plan Extracted from: Title: Progress Note Author: Chay Diane DO Date: 11/22/17 67 year old with T2DM, a-fib, HTN, GERD, depression who presented for planned L2-[address] Finney. 2.Lumbar stenosis s/p L2-3 PSF. management per primay 3.Paroxysmal atrial fibrillation outpatient f/u for anticoagulation initiation 4.DM (diabetes mellitus), type 2 glucose poorly controlled. counseledpatientextensively on importance of tight glucose control post-op. insulin requirements have increased during hospitalization due to steroids, however, patient will be on a steroid taper. Will DC patient on N 30 BID and R30 TID. Patient will callpcp if glucose persistently > 200. 5.HTN - Hypertension bp well controlled 6.GERD (gastroesophageal reflux disease) protonix 7.Depression duloxetine 8.Asthma prn albuterol 9.Obesity counseled on weight loss 10.Hypoalbuminemia increase protein intake 11.Leukocytosis suspect 2/2 steroid effect. no evidence of infection. 12.Acute blood loss anemia h/h stable. no need for transfusion 13.Urinary retention resolved. dc tamsulosin ambulation home Extracted from: Title: pre-op H&P Author: Mark Finney MD Date: 11/16/17 Chief Complaint: Back pain. History of Present Illness: This 67-year-old male complains of back pain. Pain radiates into the legs. It has been slowly getting worse over the last few years. It is now getting to the point where it is hard for him to walk. He can only walk less than a block at a time. The pain limits his activities. It affects his ability to sleep. He denies bowel or bladder symptoms. He had surgery in 1984 and 1988. He has recently had physical therapy without improvement. He has had ESIs and nerve blocks without improvement. The pain still persists and now he is more debilitated than ever. He does not think he can live with it the way it is. Past Medical History: Diabetes, hypertension, depression, high cholesterol, arrythemia, osteoarthritis. Past Surgical History: Laminectomy in 1984, fusion in 1986, left rotator cuff repair. Family History: Diabetes, COPD, hypertension, depression, cancer. Social History: Retired Medications FLECAINIDE ACETATE TABLET (FLECAINIDE ACETATE TABS) NORCO 5-325 MG ORAL TABLET (HYDROCODONE-ACETAMINOPHEN) take 1 tab PO Q4-6 hrs prn KEFLEX 500 MG ORAL CAPSULE (CEPHALEXIN) 1 PO QID TYLENOL WITH CODEINE #3 TABLET (ACETAMINOPHEN-CODEINE TABS) 1 PO Q 4-6 HRS PRN PAIN NORCO 7.5-325 MG ORAL TABLET (HYDROCODONE-ACETAMINOPHEN) 1 PO Q 4 -6 HRS PRN PAIN AMLODIPINE-ATORVASTATIN TABLET (AMLODIPINE-ATORVASTATIN TABS) CYMBALTA CAPSULE DELAYED RELEASE PARTICLES (DULOXETINE HCL CPEP) METFORMIN HCL TABLET (METFORMIN HCL TABS) NOVOLIN R SOLUTION (INSULIN REGULAR HUMAN SOLN) Allergies: SOMA (Mild) Risk Factors: Smoked Tobacco Use: Never smoker Drug use: no Alcohol use: no Ht: 70 in. T: 96.7 deg F. P: 90 BP: 122/93 Review of Systems General: Denies fevers,chills,sweats,anorexia,fatigue,malaise,weight loss. Complains of frequent falls. Eyes: Denies blurring,diplopia,irritation,discharge,vision loss,eye pain,photophobia. Ears/Nose/Throat: Denies earache, ear discharge, tinnitus, decreased hearing, nasal congestion, nosebleeds, sore throat, hoarseness, dysphagia. Cardiovascular: Denies chest pains, palpitations, syncope, dyspnea on exertion, orthopnea, PND, peripheral edema. Respiratory: Denies cough, dyspnea, excessive sputum, hemoptysis, wheezing. Gastrointestinal: Denies nausea, vomiting, diarrhea, constipation, change in bowel habits, abdominal pain, melena, hematochezia, jaundice. Complains of heartburn. Genitourinary: Denies dysuria, hematuria, discharge, urinary frequency, urinary hesitancy, nocturia, incontinence, genital sores,decreased libido. Musculoskeletal: Complains of back pain. Skin: Denies rash, itching, dryness, suspicious lesions. Neurologic: Denies transient paralysis, weakness, paresthesias, seizures, syncope, tremors, vertigo. Psychiatric: Complains of depression. Endocrine: Denies cold intolerance, heat intolerance, polydipsia, polyphagia, polyuria, weight change. Heme/Lymphatic: Denies abnormal bruising, bleeding,enlarged lymph nodes. Allergic/Immunologic: Denies urticaria, hay fever, persistent infections, HIV exposure. General Physical Exam General: Patient is well developed, well nourished, and in no acute distress. Patient is alert and oriented and without agitation. HEENT: Exam reveals lips, teeth, and gums are within normal limits. Oral pharynx reveals normal oral mucosa. Neck: Supple, symmetric, and without obvious masses. Skin: Without nodularity, rashes, lesions or ulcerations. Respiratory: Breathing is unlabored. Cardiovascular: Regular rate and rhythm. Abdomen: Soft, nontender,without obvious masses. Detailed Back/Spine Exam General: Patient is well developed, well nourished, and in no acute distress. Patient is alert and oriented and without agitation. Lumbosacral Exam: Range of Motion Forward Flexion: 50 degrees Hyperextension: 15 degrees Right Lateral Bend: 15 degrees Left Lateral Bend: 15 degrees Comments: Pain on motion of his back, especially extension. Detailed Neurologic Exam Motor Exam: Strength: Right Psoas: 5/5 Left Psoas: 5/5 Right Quads: 5/5 Left Quads: 5/5 Right Hamstrin/5 Left Hamstrin/5 Right Anterior Tibialis: 5/5 Left Anterior Tibialis: 5/5 Right Extensor Hallicus Longus: 5/5 Left Extensor Hallicus Longus: 5/5 Right Plantar Flexion: 5/5 Left Plantar Flexion: 5/5 Right Dorsiflexion: 5/5 Left Dorsiflexion: 5/5 Sensory Exam: Sensation to Pin: Normal sensation to pin prick in the lower extremities. Vibratory Sensation: Normal vibratory sensation in the lower extremities. Light Touch: No evidence for sensory loss. Reflex Exam: Deep Tendon Reflexes: Deep tendon reflexes in the lower extremities are decreased but equal. Diagnostic Interpretation In house Location: L-Spine Views: AP, Lateral Findings: Shows spondylolisthesis at L2-L3 above previous fusion L3 to S1. There is flatback. From outside source Diagnostic Test: MRI L-spine Findings: Shows stenosis at L2-L3, but the imaging is distorted by the hardware. From outside source Diagnostic Test: CT myelogram L-spine Findings: Shows severe stenosis at L2-L3 above his previous fusion. ASSESSMENT: 1) Acquired lumbar spondylolisthesis (ICD-738.4) (IBQ49-N38.16) 2) Lumbosacral spinal stenosis (ICD-724.02) (ZNG42-P18.07) Additional Assessment L2-L3 spondylolisthesis and stenosis above previous fusion. TREATMENT PLAN: L2-L3 Posterior Spinal Instrumentation Fusion and Decompression. I recommend we proceed with L2-L3 laminectomy, facetectomy, foraminotomy, decompression, and posterior fusion. I have gone over the surgery with him. He understands. Common risk and benefits have been discussed with the patient, he understands and wants to proceed with the procedure. Extracted from: Title: Consult Note Author: Gian Pickens MD Date: 11/07/17 1.Preop cardiovascular exam Type of surgery:L2-3 posterior spinal fusion, intermediate risk Surgery specificmedical issues:Insulin-dependent diabetes, hypertension, atrial fibrillation Physical exam concerns: Obesity Patient is able to perform >4METs Activity with out cardiovascular symptoms(stairs) Baseline EKG showsnormal sinus rhythm Outpatient cyanide pot hardener:None Revised cardiac risk index scoreis 0 consistent with 0.4% risk ofmajor perioperativecardiac event Patient is considered a lowperioperativeCardiovascular risk for intermediate risk surgery and may proceed without further preoperativeworkup. Risks and benefits of surgery discussed with patient 2.Lumbar stenosis Scheduled for L2-[address] fusion [address] Dr[address] Finney on 11/19/2017 3.Paroxysmal atrial fibrillation Controlled on flecainide. Currently in normal sinus rhythm. Patient takes full dose aspirin daily which he is holding perioperatively. Given elevated CHADS-VASC score would recommendpatient be started onanticoagulation with Coumadin or novel oral anticoagulantwhich can be done postoperatively once cleared from surgical standpoint. Discussedrecommendations with patient and instructed to follow-up with primary care physician and/or cardiology forfurtherdiscussion, evaluationand recommendation. 4.DM (diabetes mellitus), type 2 Onmetformin, NovolinN and Novolin R. Patient instructed to take half dose of Novolin N on the day of surgery which would amount to 15 units that morning. Continue to monitor glucose levels postoperatively 5.HTN - Hypertension On amlodipine and ramipril. Patient instructed to hold ramapril on the day of surgery 6.GERD (gastroesophageal reflux disease) Continue on Prilosec 7.Depression Continue on duloxetine 8.Asthma Patientdenies any recent exacerbationof asthma for several years. He does not require any medicationsor inhalers for this 9.Obesity Patient counseled on importance of weight loss 10.Hypoalbuminemia Patient haslow albumin of 3.2 on preop labs. Call patient discussed findings and recommend to increase protein intake through dietwith foods such asmeats, dairy, beans and legumes. Patient also instructed to start taking boost or Ensure protein supplement once dailyperioperatively until surgical wound completely healed postop. Patient expressed understanding andall questions answered. [facility] Hospitalist Consult Please [email or web address] any questions
--- OUTSIDE RECORDS SUMMARY | 2018-07-25 00:38 | XMS REPORT ---
Author Author Georgette Hawley [facility] [place] eClinicalWorks Address Unknown Phone Unavailable Care Team Providers Care Converting Technician Name Role Phone Chandan Georgette CP Unavailable Encounters Encounter Location Date Unknown [facility] May 09, 2013 Unknown [facility] Jun 18, 2013 cassie [facility] Jun 23, 2013 Heart racing [facility] Jun 17, 2013 Unknown [facility] Feb 10, 2013 REFILL [facility] November 25, 2013 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 [facility] Jan 17, 2013 cough [facility] Feb 13, 2013 Unknown [facility] November 12, 2013 cassie [facility] Jun 26, 2013 fell on ribs [facility] September 23, 2013 Problems Problem Type Condition ICD-9 Code Onset Dates Condition Status Problem Leg pain 729.5 Active Problem Hyperlipidemia 272.4 Active Problem HTN (hypertension) 401.9 Active Problem Fatigue 780.79 Active Problem Diabetes mellitus 250.00 Active Medications Medication Code System Code Instructions Start Date End Date Status Dosage Cymbalta MEDISPAN [address]-19 60 MG Orally Once a day (patient needs to be seen before next refill) May 09, 2013 Active 1 capsule Social History Social History Element Qualifiers Date Reported Ethnicity . Status , Is serbian your primary language? Yes September 23, 2013 [...] Status: No September 23, 2013 Occupation: employed. Work [employer] September 23, 2013 Summary Purpose eClinicalWorks Submission
--- OUTSIDE RECORDS SUMMARY | 2018-07-25 00:38 | XMS REPORT ---
Author Author Gwendolyn Miranda [facility] eClinicalWorks Address Unknown Phone Unavailable Care Team Providers Care Straddle Truck Operator Name Role Phone Gwendolyn Miranda Unavailable Allergies, Adverse Reactions, Alerts Substance Reaction Event Type Soma rash Drug Allergy Encounters Encounter Location Date Unknown [facility] May 09, 2013 Unknown [facility] Jun 18, 2013 sick [facility] Jun 23, 2013 Heart racing [facility] Jun 17, 2013 Unknown [facility] Feb 10, 2013 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 [facility] Jan 17, 2013 cough [facility] Feb 13, 2013 Problems Problem Type Condition ICD-9 Code Onset Dates Condition Status Assessment Encounter for medication counseling V65.49 Active Assessment Hyperlipidemia 272.4 Active Assessment Right ankle pain 719.47 Active Assessment Depression 311 Active Assessment Obesity 278.00 Active Problem Leg pain 729.5 Active Problem Hyperlipidemia 272.4 Active Problem HTN (hypertension) 401.9 Active Assessment Diabetes mellitus 250.00 Active Assessment HTN (hypertension) 401.9 Active Problem Fatigue 780.79 Active Assessment Tachycardia 785.0 Active Medications Medication Code System Code Instructions Start Date End Date Status Dosage Novolin N [facility] [address]-46 100 UNIT/ML Subcutaneous AM and PM Active 23 units Amlodipine Besylate [facility] [address]-53 10 mg Orally Once a day Feb 13, 2013 Active 1 tablet Metformin HCl [facility] [address]-06 500 Active TAKE TWO TABLETS BY MOUTH TWICE DAILY Bystolic [facility] [address]-31 10 mg Orally Once a day Jun 17, 2013 Active 1 tablet Novolin R [facility] [address]-26 100 UNIT/ML Injection TID with meals Active 23 units Cymbalta [facility] [address]-27 60 MG Orally Once a day May 09, 2013 Active 1 capsule Social History Social History Element Qualifiers Date Reported Ethnicity . Status , Is romansh your primary language? 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 [employer] Jun 17, 2013 Family history Qualifier Description Comment Date Reported Maternal Grandmother Comment not available Jun 17, 2013 Paternal Grandmother Comment not available Jun 17, 2013 Siblings alive diabetes mellitus, COPD Jun 17, 2013 Maternal Grandfather Comment not available Jun 17, 2013 Children alive hypertension Jun 17, 2013 Father colon cancer Jun 17, 2013 Paternal Grandfather Comment not available Jun 17, 2013 Mother lung cancer Jun 17, 2013 Vital Signs Date/Time: Jun 17, 2013 Weight 236 lbs Height 70 inches Temperature 98.4 F Cardiac Monitoring Heart Rate 71 Beats per Minute Blood Pressure Diastolic 88 mm Hg Blood Pressure Systolic 142 mm Hg Results EKG W/INTERP/ELECTR Ankle 3 views - Right Xray CBC Platelets(- ) 282 NEUTROPHILS(- ) MID-1.0,GRA-6.2 MCHC(- ) 33.3 MCH(- ) 32.1H MCV(- ) 96.3 WBC(- ) 9.9 RDW(- ) 14.3 RBC(- ) 4.99 Hemoglobin(- ) 16.0 Hematocrit(- ) 48.1 GLUCOSE FINGER STICK GLUCOSE(- ) 96 Hemoglobin A1c TSH Summary Purpose eClinicalWorks Submission
[2018-07-25] MEDS ORDERED: DEXTROSE 5%/0.9% SOD CHL 1,000 ML IV ONE (00:53)
[2018-07-25] MEDS ORDERED: DEXTROSE 5% 1,000 ML IV ONE (01:15)
[2018-07-25 01:30] LABS: BASOPHILS # (AUTO) 0.2 (0.0-0.1); BASOPHILS % 0.9 % (0.0-1.0); EOSINOPHILS # (AUTO) 0.3 (0.0-0.4); EOSINOPHILS % 1.6 % (0.0-6.0); HEMATOCRIT 42.7 % (38.2-49.6); HEMOGLOBIN 14.2 g/dL (14.0-18.0); LYMPHOCYTES # (AUTO) 2.5 (1.0-3.2); LYMPHOCYTES % 15.6 % (18.0-39.1); MEAN CORPUSCULAR HEMOGLOBIN 29.1 pg (28-32); MEAN CORPUSCULAR HGB CONC 33.3 g/dL (31-35); MEAN CORPUSCULAR VOLUME 87.5 fL (81-99); MONOCYTES # (AUTO) 1.2 (0.2-0.8); MONOCYTES % 7.2 % (4.4-11.3); NEUTROPHILS % 73.8 % (38.7-80.0); PLATELET COUNT 381 x10e3/uL (140-360); RED BLOOD COUNT 4.88 x10e6/uL (4.3-5.7)
[2018-07-25 01:41] LABS: ALANINE AMINOTRANSFERASE 37 IU/L (0-55); ALBUMIN 3.6 g/dL (3.5-5.0); ALBUMIN/GLOBULIN RATIO 0.8 (0.8-2.0); ALKALINE PHOSPHATASE 134 IU/L (40-150); ANION GAP 19.4 mmol/L (8-16); BLOOD UREA NITROGEN 25 mg/dL (7-26); BUN/CREATININE RATIO 30 (6-25); CALCIUM 10.4 mg/dL (8.4-10.2); CARBON DIOXIDE 22 mmol/L (22-29); CHLORIDE 100 mmol/L (98-107); CREATINE KINASE 106 IU/L (30-200); CREATININE, SERUM 0.84 mg/dL (0.72-1.25); EST GLOMERULAR FILTRATION RATE > 60 ML/MIN (60-); POTASSIUM 3.4 mmol/L (3.5-5.1); SODIUM 138 mmol/L (136-145)
[2018-07-25 01:45] LABS: GLUCOSE 22 mg/dL (74-118)
[2018-07-25 01:48] LABS: CLARITY,URINE CLOUDY (CLEAR); COLOR,URINE YELLOW (YELLOW); KETONES,URINE NEGATIVE (NEGATIVE); LEUKOCYTE ESTERASE ,URINE 1+ (NEGATIVE); NITRITE,URINE POSITIVE (NEGATIVE); PROTEIN,URINE DIPSTICK TRACE (NEGATIVE)
[2018-07-25 01:49] LABS: BILIRUBIN,URINE NEGATIVE (NEGATIVE); URINE UROBILINOGEN 0.2 mg/dL (0.2 - 1)
--- NOTE | 2018-07-25 02:11 | Diagnostic Imaging Report ---
History:Fall, loc Comparison studies: None Technique: Axial images were obtained from the skull base to the vertex. Coronal and sagittal images reconstructed from the axial data. Dose modulation, iterative reconstruction, and/or weight based adjustment of the mA/kV was utilized to reduce the radiation dose to as low as reasonably achievable. Intravenous contrast: None Findings: Scalp/skull: No abnormalities. Extra-axial spaces: No masses. No fluid collections. Brain sulci: Mildly prominent. Ventricles: Moderately dilated but no acute hydrocephalus. Parenchyma: Ill defined confluent hypodensities in the supratentorial white matter are small vessel ischemic changes. No masses, hemorrhage, acute or chronic cortical vascular insults. Sellar/suprasellar region: No abnormalities. Craniocervical junction: Patent foramen magnum. No Chiari one malformation. Incidental findings: Atherosclerotic calcifications in the carotid siphons and vertebral arteries. Impression: 1. No acute abnormalities. 2. Moderate nonspecific dilatation of the ventricles. No previous studies available for comparison. It is presumed to be chronic and compensated as the cerebral sulci are patent. The sylvian fissures are not dilated to suggest normal pressure hydrocephalus. Chronic findings: 1. Mild generalized volume loss. 2. Moderate supratentorial white matter small vessel ischemic changes. Signed by: Dr. Vicente Stewart M.D. on 07/25/2018 2:08 AM
--- NOTE | 2018-07-25 02:12 | Diagnostic Imaging Report ---
EXAM: XR CHEST 1 VIEW DATE: 07/25/2018 1:10 AM INDICATION: Hypoglycemia/fall COMPARISON: None FINDINGS: Lines and Tubes: None Heart and Mediastinum: No acute cardiomediastinal findings. Lungs and Pleura: Patchy opacity left lung base. Elevation right hemidiaphragm. Bones and Soft Tissues: No acute findings. IMPRESSION: 1. Patchy opacity left lung base, poorly evaluated due to underpenetration. Atelectasis versus pneumonia. Signed by: Dr. Deep Quinones MD on 07/25/2018 2:09 AM
[2018-07-25 02:22] LABS: THYROID STIMULATING HORMONE 1.573 uIU/mL (0.350-4.940)
[2018-07-25 02:33] LABS: BACTERIA,URINE MANY /HPF; EPITHELIAL CELLS,URINE FEW /LPF; TRANSITIONAL EPI CELLS,URINE MODERATE; WBC,URINE (MAN) >50 /HPF (0-5)
[2018-07-25] MEDS ORDERED: DEXTROSE 50% SYRINGE 50 ML IV ONE (02:47)
[2018-07-25] MEDS: DEXTROSE 50% SYRINGE 50 ML IV PRN ×2 (02:47→05:00)
--- NOTE | 2018-07-25 02:53 | Diagnostic Imaging Report ---
History: Fall Comparison studies: None Technique: Axial images were obtained through the cervical region.. Coronal and sagittal images reconstructed from the axial data. Dose modulation, iterative reconstruction, and/or weight based adjustment of the mA/kV was utilized to reduce the radiation dose to as low as reasonably achievable. Intravenous contrast: None Findings: Fractures: None. Soft tissues: No gross abnormalities. Atlantoaxial articulation: Mild degenerative changes. Alignment: Normal lordosis. No scoliosis. Cervicomedullary junction: No abnormalities. The foramen magnum is patent. Vertebrae: No infection or neoplasm. Degenerative changes: Mildly degenerated discs from C3 to C7. Foraminal stenosis, mild right at C3-4, left at C6-C7 due to to mild uncovertebral arthrosis. No significant spinal canal stenosis IMPRESSION: 1. No acute abnormalities. 2. Cannot adequately evaluate for ligament, spinal cord and or vascular abnormalities. 3. Mild degenerative changes. Signed by: Dr. Vicente Stewart M.D. on 07/25/2018 2:50 AM
[2018-07-25] MEDS ORDERED: CEFTRIAXONE SOD 1 GM/NS 50 ML 50 ML IV ONE (03:15)
[2018-07-25] MEDS ORDERED: SODIUM CHLORIDE 0.9% 1000ML 1,000 ML IV SCH ×2 (04:41→05:15)
[2018-07-25] MEDS ORDERED: ONDANSETRON HCL INJ 2MG/ML 2ML 2 MG/ML VIAL IV PRN (04:45)
[2018-07-25] MEDS ORDERED: MORPHINE SULFATE 2 MG/ML SYR 1ML IV PRN (04:45)
[2018-07-25] MEDS ORDERED: DEXTROSE 10% 1,000 ML IV ONE ×2 (04:45→04:57)
--- NOTE | 2018-07-25 05:15 | NUR ---
PATIENT CARE AND REPORT CALLED TO KEITH KERR BY ALBERTO DONALD.
--- NOTE | 2018-07-25 05:30 | NUR ---
RECEIVED REPORT, PT ADMITTED TO RM # [id number], ADMITTED MADE COMFORTABLE, CARPET SHEARING TO RT KNEE, RT SIDE OF HEAD AND RT BACK FLANK AREA, PT AWARE OF EVENTS THAT TOOK PLACE, DOESN'T REMEMBER FALL OR EVENTS THAT LED UP TO FALL. PT EASY TO AWAKEN, DENIES PAIN AND DISCOMFORTS.
--- OUTSIDE RECORDS SUMMARY | 2018-07-25 05:40 | XMS REPORT | Clinical Summary ---
Author Author [employer] [facility] [employer] Address Unknown Phone Unavailable Care Team Providers Care Makeup Artistry Instructor Name Role Phone Jeremy Olivo MD PCP [...] joint (Primary Dx); Unable to walk 02/07/2018 [facility] General Internal Medicine - Encounter 02/13/2018 Jacqui Sorenson MD NPH (normal pressure hydrocephalus) (Primary Dx); Lumbar radiculopathy 01/16/2018 Office Visit Neurosurgery Saran Grimes MD Lumbar spondylosis (Primary Dx) 12/31/2017 [facility] General Internal Medicine - Encounter 01/08/2018 Dilia Nelson MD Left lower quadrant pain (Primary Dx); UTI (urinary tract infection), bacterial; Lumbar radiculopathy, chronic 12/29/2017 Emergency Emergency Medicine Claudio Ha MD Shehata, Mohamed M., MD Intractable abdominal pain (Primary Dx); Left lower quadrant pain; Lumbar radiculopathy 12/17/2017 [facility] General Internal Medicine - Encounter 12/22/2017 [...] MMODE SPECTRAL 12:21 PM CDT COLOR DOPPLER ([id number]) POC GLUCOSE Routine 02/09/2018 10:34 AM CDT [...] glucose 175 (H) 65 - 99 mg/dL [facility] DEPARTMENT OF Comment: PATHOLOGY AND H Notified RN GENOMIC MEDICINE Meter ID: [id number] Chemical Maker: Roger Lopez Performing Organization Address City/State/Zipcode Phone Number [facility] DEPARTMENT OF [address] [place] [address] PATHOLOGY AND GENOMIC MEDICINE * XR Chest 1 Vw Portable (02/10/2018 1:30 PM CDT) Narrative Performed At EXAMINATION:XR CHEST 1 VW PORTABLE RADIANT CLINICAL HISTORY:cough COMPARISON: February 07, 2018 . IMPRESSION: 1.Heart size and mediastinum are prominent. 2.The right hemidiaphragm is slightly elevated. Lungs are clear. 3.No pneumothorax. 4.Evaluation is stable relative to prior. [facility]-[id number] Procedure Note Interface, Radiology Results Incoming - 02/10/2018 1:43 PM CDT EXAMINATION: XR CHEST 1 VW PORTABLE CLINICAL HISTORY: cough COMPARISON: February 07, 2018 . IMPRESSION: 1. Heart size and mediastinum are prominent. 2. The right hemidiaphragm is slightly elevated. Lungs are clear. 3. No pneumothorax. 4. Evaluation is stable relative to prior. [facility]-[id number] Performing Organization Address City/[facility]/Zipcode Phone Number [facility] [address] [place] [address] * CBC hemogram (02/10/2018 5:30 AM CDT) WBC 10.64 4.50 - 11.00 k/uL [facility] DEPARTMENT OF PATHOLOGY AND GENOMIC MEDICINE RBC 4.13 (L) 4.40 - 6.00 m/uL [facility] DEPARTMENT OF PATHOLOGY AND GENOMIC MEDICINE HGB 12.0 (L) 14.0 - 18.0 g/dL [facility] DEPARTMENT OF PATHOLOGY AND GENOMIC MEDICINE HCT 37.4 (L) 41.0 - 51.0 % [facility] DEPARTMENT OF PATHOLOGY AND GENOMIC MEDICINE MCV 90.6 82.0 - 100.0 fL [facility] DEPARTMENT OF PATHOLOGY AND GENOMIC MEDICINE MCH 29.1 27.0 - 34.0 pg [facility] DEPARTMENT OF PATHOLOGY AND GENOMIC MEDICINE MCHC 32.1 31.0 - 37.0 g/dL [facility] DEPARTMENT OF PATHOLOGY AND GENOMIC MEDICINE RDW - SD 44.1 37.0 - 55.0 fL [facility] DEPARTMENT OF PATHOLOGY AND GENOMIC MEDICINE MPV 9.7 8.8 - 13.2 fL [facility] DEPARTMENT OF PATHOLOGY AND GENOMIC MEDICINE Platelet count 251 150 - 400 k/uL [facility] DEPARTMENT OF PATHOLOGY AND GENOMIC MEDICINE Nucleated RBC 0.00 /100 WBC [facility] DEPARTMENT OF PATHOLOGY AND GENOMIC MEDICINE Specimen Blood Performing Organization Address City/[facility] Phone Number [facility] DEPARTMENT OF [address] [place] [address] PATHOLOGY AND GENOMIC MEDICINE * Estimated GFR (02/10/2018 4:00 AM CDT) Only the most recent of 13 results within the time period is included. GFR Non Af Amer >90 mL/min/1.73 m2 [facility] DEPARTMENT OF PATHOLOGY AND GENOMIC MEDICINE GFR Af Amer >90 mL/min/1.73 m2 [facility] DEPARTMENT OF Comment: PATHOLOGY AND Chronic [...] Americans. Specimen Plasma specimen Performing Organization Address [facility] Phone Number [facility] [place] [address] PATHOLOGY AND [facility] * Basic metabolic panel (02/10/2018 4:00 AM CDT) Only the most recent of 9 results within the time period is included. Sodium 138 135 - 148 mEq/L [facility] DEPARTMENT OF PATHOLOGY AND GENOMIC MEDICINE Potassium 4.0 3.5 - 5.0 mEq/L [facility] DEPARTMENT OF PATHOLOGY AND GENOMIC MEDICINE Chloride 99 98 - 112 mEq/L [facility] DEPARTMENT OF PATHOLOGY AND GENOMIC MEDICINE CO2 26 24 - 31 mEq/L [facility] DEPARTMENT OF PATHOLOGY AND GENOMIC MEDICINE Anion gap 13@ANIO 7 - 15 mEq/L [facility] DEPARTMENT OF PATHOLOGY AND GENOMIC MEDICINE BUN 14 8 - 23 mg/dL [facility] DEPARTMENT OF PATHOLOGY AND GENOMIC MEDICINE Creatinine 0.7 0.7 - 1.2 mg/dL [facility] DEPARTMENT OF PATHOLOGY AND GENOMIC MEDICINE Glucose 71 65 - 99 mg/dL [facility] DEPARTMENT OF PATHOLOGY AND GENOMIC MEDICINE Calcium 9.3 8.8 - 10.2 mg/dL [facility] DEPARTMENT OF PATHOLOGY AND GENOMIC MEDICINE Specimen Plasma specimen Performing Organization Address [facility] Phone Number [facility] [place] [address] PATHOLOGY AND [facility] MEDICINE * Echocardiogram complete w contrast and 3D if needed (02/09/2018 12:21 PM CDT) Narrative Performed At [facility] Echocardiography Report [address] [facility] [address], [place] [address] Pat.Name:RONY VU Obdulia Vasquez.ID:[id number] .Date: 02/09/2018 Refer.MD:RUDI KAHN MD Exam Time: 11:06:00 AM Study Type:Routine Echo Height:70inWeight:197lb BSA: 2.08 m2 DOBAge:1950,67Y Sex: MALEBP:146/78 HR:69 bpm Sonogrphr: Paramjit Xavier [facility]. Stat.:Inpatient Room:[facility] Study Status:Final Echo Event ID:[id number] Order ID:[id number] Reason for Study:Atrial fibrillation History / Clinical:Atrial [...] RAPof 5 mmHg. MEASUREMENTS: 2D Parasternal [place] LVOT 2.3 cmLA Ds2.8 cm LVIDd4.4 cmIndex2.1 cm/m Ao Rtd 3.7 cm Index1.8 cm/m LVIDs2.9 cm LV Dorv143.8 g(122-174) LV%fs 33.8 % LVM Index 83.6 g/m2 IVSd 1.3 cmRWT0.4 LVPWd0.9 cm LA Sng Plane LA Area 14 cm2(8.8-23.4) LA Vol32.9 ml Index15.8 ml/m LA LngAx 4.5 cm Signed 02/09/2018 07:49 PM Lyndsey Sy M.D. Procedure Note Interface, Radiology Results In - 02/09/2018 7:50 PM CDT Echocardiography Report [address] [place] [address] Pat.Name: VU ALVAREZ Pat.ID: [id number] .Date: 02/09/2018 Refer.MD: RUDI KAHN MD Exam Time: 11:06:00 AM Study Type:Routine Echo Height: 70in Weight: 197lb BSA: 2.08 m2 Age: 2 1950,67Y Sex: MALE BP: 146/78 HR: 69 bpm Sonogrphr: AUDREY Herrera Pat. Stat.:Inpatient Room: [facility] Study Status:Final Echo Event ID:[id number] Order ID: [id number] Reason for Study:Atrial fibrillation History / Clinical:Atrial [...] of 5 mmHg. MEASUREMENTS: 2D Parasternal [place] LVOT 2.3 cm LA Ds 2.8 cm [...] Performing Organization Address City/State/Zipcode Phone Number [facility] [address] [place] [address] * Cv ecg exercise stress (no imaging) (02/09/2018 9:29 AM CDT) Resting HR 67 [facility] Resting BP 164 [facility] Peak MET Achieved 1.0 [facility] MUSE Protocol Name HAYDEN [facility] MUSE Time in Exercise Phase 00:01:00 [facility] MUSE Max Systolic BP 164 [facility] MUSE Max Diastolic BP 79 [facility] MUSE Max Heart Rate 83 [facility] MUSE Max Predicted Heart Rate 151 [facility] MUSE Target HR Formula (220 - Age)*100% [facility] MUSE Test Indication A-FIB [facility] MUSE Stress Test Impression -Waveform interpreted in [facility] MUSE report associated with image study. No interpretation is provided as part of this Stress ECG report.-Electronically Signed By Marian MANUEL, Kaushik ([id number]), technical writer and editor Jocy Russo ([id number]) on 02/09/2018 10:15:57 AM Target HR 128.35 bpm [facility] MUSE Performing Organization Address City/State/Zipcode Phone Number [facility] [address] [place] [address] * Nm myocardial perfusion (02/09/2018 9:29 AM CDT) Narrative Performed At [facility] Nuclear Cardiology and Cardiac CT [address] [place] [address] Myocardial Perfusion Imaging Report Stress ECG tracings are available in MUSE, [employer] ([employer]) and [employer] Web All ECG interpretations are included in this report Pat.Name:Cortez Alvarez.ID:[id number] .Date: 02/09/2018 Refer.MD:RUDI KAHN MD Exam Time: 8:51:00 AM Study Type:Myocardial Perfusion Imaging Height:62inBSA: 1.9 m2 DOBAge:1950,67YSex: MALE BP:164/79HR: 67 bpm HCT: 38.1 % Nuclear Tech:TORI Whittington, TORI Walsh Pat. Stat.:Inpatient Room:A845 Nuclear Event ID:[id number] Order ID:[id number] Reason for Study:Atrial fibrillation*, Pre-op evaluation non-coronary [...] PM CDT Nuclear Cardiology and Cardiac CT [address] [address] Myocardial Perfusion Imaging Report Stress ECG tracings are available in arGEN-X, [employer] ([employer]) and [employer] All ECG interpretations are included in this report Pat.Name: Vu Alvarez Pat.ID: [id number] .Date: 02/09/2018 Refer.MD: RUDI KAHN MD Exam Time: 8:51:00 AM Study Type:Myocardial Perfusion Imaging Height: 62in BSA: 1.9 m2 Age: 2 1950,67Y Sex: MALE BP: 164/79 HR: 67 bpm HCT: 38.1 % Nuclear Tech:TORI Whittington, TORI Walsh Pat. Stat.:[facility] Event ID:[id number] Order ID: [id number] Reason for Study:Atrial fibrillation*, Pre-op evaluation non-coronary [...] Organization Address City/State/Zipcode Phone Number [facility] [address] [place] [address] * CBC with platelet and differential (02/08/2018 5:05 AM CDT) Only the most recent of 13 results within the time period is included. WBC 12.45 (H) 4.50 - 11.00 k/uL [facility] DEPARTMENT OF PATHOLOGY AND GENOMIC MEDICINE RBC 4.35 (L) 4.40 - 6.00 m/uL [facility] DEPARTMENT OF PATHOLOGY AND GENOMIC MEDICINE HGB 12.5 (L) 14.0 - 18.0 g/dL [facility] DEPARTMENT OF PATHOLOGY AND GENOMIC MEDICINE HCT 38.1 (L) 41.0 - 51.0 % [facility] DEPARTMENT OF PATHOLOGY AND GENOMIC MEDICINE MCV 87.6 82.0 - 100.0 fL [facility] DEPARTMENT OF PATHOLOGY AND GENOMIC MEDICINE MCH 28.7 27.0 - 34.0 pg [facility] DEPARTMENT OF PATHOLOGY AND GENOMIC MEDICINE MCHC 32.8 31.0 - 37.0 g/dL [facility] DEPARTMENT OF PATHOLOGY AND GENOMIC MEDICINE RDW - SD 43.1 37.0 - 55.0 fL [facility] DEPARTMENT OF PATHOLOGY AND GENOMIC MEDICINE MPV 9.4 8.8 - 13.2 fL [facility] DEPARTMENT OF PATHOLOGY AND GENOMIC MEDICINE Platelet count 256 150 - 400 k/uL [facility] DEPARTMENT OF PATHOLOGY AND GENOMIC MEDICINE Nucleated RBC 0.00 /100 WBC [facility] DEPARTMENT OF PATHOLOGY AND GENOMIC MEDICINE Neutrophils 62.2 39.0 - 69.0 % [facility] DEPARTMENT OF PATHOLOGY AND GENOMIC MEDICINE Lymphocytes 23.2 (L) 25.0 - 45.0 % [facility] DEPARTMENT OF PATHOLOGY AND GENOMIC MEDICINE Monocytes 12.2 (H) 0.0 - 10.0 % [facility] DEPARTMENT OF PATHOLOGY AND GENOMIC MEDICINE Eosinophils 1.1 0.0 - 5.0 % [facility] DEPARTMENT OF PATHOLOGY AND GENOMIC MEDICINE Basophils 0.7 0.0 - 1.0 % [facility] DEPARTMENT OF PATHOLOGY AND GENOMIC MEDICINE Immature granulocytes 0.6Comment: "Immature 0.0 - 1.0 % [facility] DEPARTMENT OF granulocytes" (promyelocytes, PATHOLOGY AND myelocytes, metamyelocytes) [facility] MEDICINE Specimen Blood Performing Organization Address City/State/Zipcode Phone Number [facility] DEPARTMENT OF [address] [place] [address] PATHOLOGY AND GENOMIC MEDICINE * ECG 12 lead (02/07/2018 10:21 PM CDT) Only the most recent of 2 results within the time period is included. Ventricular rate 84 [facility] Atrial rate 84 [facility]USE OK interval 214 [facility] QRSD interval 94 [facility] QT interval 370 [facility] QTC interval 437 [facility] P axis 1 37 [facility] QRS axis 1 4 [facility] T wave axis 83 [facility] EKG impression Sinus rhythm with 1st degree [facility] MUSE AV block-Nonspecific T wave abnormality-Abnormal ECG-In automated comparison with ECG of 29-DEC-2017 15:42,-Nonspecific T wave abnormality, worse in Anterior leads- Performing Organization Address [facility] Phone Number [facility] [address] [place] [address] * XR Chest 1 Vw (02/07/2018 6:35 PM CDT) Narrative Performed At EXAMINATION:XR CHEST 1 VW RAD[facility]ANNER CLINICAL HISTORY: fall at 31m this morningr o trauma COMPARISON:None IMPRESSION: No radiographic evidence for acute cardiopulmonary process. Cardiomediastinal silhouette is at the upper limits of normal in size. No focal or confluent airspace consolidation is seen on this single AP plane to suggest acute pneumonia. No sizable pleural effusion. No pneumothorax identified. No acute osseous abnormalities are visualized. [facility]-[id number] Procedure Note Hm Interface, Radiology Results Incoming [...] identified. No acute osseous abnormalities are visualized. [facility]-[id number] Performing Organization Address [facility] Phone Number [facility] [address] [place] [address] * CT Pelvis Wo Contrast (02/07/2018 4:22 [...] OA. Thickening and stranding involving the left refinery operator light ends recovery externus and interosseous muscles indicative of hemorrhage [...] and intramuscular hemorrhage/traumatic strain of the left refinery operator light ends recovery externus and internus. Distended urinary bladder consider [place]. Constipation and/or fecal impaction. Disimpaction recommended to avoid stercoral colitis. [facility]-[id number] Procedure Note Interface, Radiology Results Incoming - [...] OA. Thickening and stranding involving the left refinery operator light ends recovery externus and interosseous muscles indicative of hemorrhage [...] and intramuscular hemorrhage/traumatic strain of the left refinery operator light ends recovery externus and internus. Distended urinary bladder consider [place]. Constipation and/or fecal impaction. Disimpaction recommended to avoid stercoral colitis. [facility]-[id number] Performing Organization Address [facility] Hospital[facility] Phone Number [facility] [address] [place] [address] * Partial thromboplastin time, activated (02/07/2018 1:56 PM CDT) Only the most recent of 3 results within the time period is included. PTT 30.2 23.0 - 36.0 sec [facility] DEPARTMENT OF Comment: PATHOLOGY AND PTT therapeutic range for [employer] MEDICINE unfractionated heparin is 61.0-112.0 seconds which corresponds to Anti-Xa 0.3-0.7 U/ml. Specimen Blood Performing Organization Address [facility]/Zipcode Phone Number [address] [address] PATHOLOGY AND [employer] MEDICINE * Prothrombin time with INR (02/07/2018 1:56 PM CDT) Only the most recent of 3 results within the time period is included. Prothrombin time 13.9 12.0 - 15.0 sec [facility] DEPARTMENT OF PATHOLOGY AND GENOMIC MEDICINE INR 1.1 [facility] DEPARTMENT OF Comment: PATHOLOGY AND The International Normalized GENOMIC MEDICINE Ratio (INR) is a therapeutic monitoring tool for patients who are stable on oral anticoagulant therapy. An INR of 2.0-3.0 is suggested for deep vein thrombosis/pulmonary embolism. Specimen Blood Performing Organization Address City/State/Zipcode Phone Number [facility] DEPARTMENT OF [address] [place] [address] PATHOLOGY AND GENOMIC MEDICINE * Comprehensive metabolic panel (02/07/2018 1:56 PM CDT) Only the most recent of 4 results within the time period is included. Sodium 137 135 - 148 mEq/L [facility] DEPARTMENT OF PATHOLOGY AND GENOMIC MEDICINE Potassium 4.4 3.5 - 5.0 mEq/L [facility] DEPARTMENT OF PATHOLOGY AND GENOMIC MEDICINE Chloride 97 (L) 98 - 112 mEq/L [facility] DEPARTMENT OF PATHOLOGY AND GENOMIC MEDICINE CO2 23 (L) 24 - 31 mEq/L [facility] DEPARTMENT OF PATHOLOGY AND GENOMIC MEDICINE Anion gap 17@ANIO (H) 7 - 15 mEq/L [facility] DEPARTMENT OF PATHOLOGY AND GENOMIC MEDICINE BUN 15 8 - 23 mg/dL [facility] DEPARTMENT OF PATHOLOGY AND GENOMIC MEDICINE Creatinine 0.7 0.7 - 1.2 mg/dL [facility] DEPARTMENT OF PATHOLOGY AND GENOMIC MEDICINE Glucose 189 (H) 65 - 99 mg/dL [facility] DEPARTMENT OF PATHOLOGY AND GENOMIC MEDICINE Calcium 9.4 8.8 - 10.2 mg/dL [facility] DEPARTMENT OF PATHOLOGY AND GENOMIC MEDICINE Protein 7.2 6.3 - 8.3 g/dL [facility] DEPARTMENT OF Comment: PATHOLOGY AND [place] GENOMIC MEDICINE 4.6-7.0 g/dL 1 week 4.4-7.6 g/dL 7 months-1year 5.1-7.3 g/dL 1-2 years5.6-7 .5 g/dL >3 years6.0-8 .0 g/dL 18-150 6.3-8.3 g/dL Albumin 3.5 3.5 - 5.0 g/dL [facility] DEPARTMENT OF PATHOLOGY AND GENOMIC MEDICINE A/G ratio 0.9 0.7 - 3.8 [facility] DEPARTMENT OF PATHOLOGY AND GENOMIC MEDICINE Alkaline phosphatase 102 40 - 129 U/L [facility] DEPARTMENT OF PATHOLOGY AND GENOMIC MEDICINE AST 23 10 - 50 U/L [facility] DEPARTMENT OF PATHOLOGY AND GENOMIC MEDICINE ALT 22 5 - 50 U/L [facility] DEPARTMENT OF PATHOLOGY AND GENOMIC MEDICINE Total bilirubin 0.3 0.0 - 1.2 mg/dL [facility] DEPARTMENT OF PATHOLOGY AND GENOMIC MEDICINE Specimen Plasma specimen Performing Organization Address [facility] Phone Number [facility] DEPARTMENT [address] [address] PATHOLOGY AND GENOMIC MEDICINE * XR Pelvis [...] in the rectosigmoid. No visible acute fracture. [facility]-[id number] Procedure Note Interface, Radiology Results Incoming - 02/07/2018 2:19 PM CDT EXAMINATION: XR PELVIS 1 OR 2 VW INDICATION: fall at 31m this morning r o trauma COMPARISON: None IMPRESSION: A single frontal view of the pelvis was obtained. Limited evaluation of the sacrum and pubic body secondary to large amount of stool in the rectosigmoid. No visible acute fracture. [facility]-[id number] Performing Organization Address [facility] Phone Number [facility] [address] [place] [address] * XR Hip 2-3 View Left (02/07/2018 1:45 PM CDT) Narrative Performed At EXAMINATION:XR HIP 2-3 VIEWS LEFT RADIANT CLINICAL HISTORY:fall at 31m this morningr o trauma COMPARISON:None. IMPRESSION: 1.The left hip is in normal anatomic alignment. There is no evidence of fracture or dislocation. 2.No radiopaque foreign bodies are seen within the soft tissues. [facility]-[id number] Procedure Note Interface, Radiology Results Incoming - 02/07/2018 1:53 PM CDT EXAMINATION: XR HIP 2-3 VIEWS LEFT CLINICAL HISTORY: fall at 31m this morning r o trauma COMPARISON: None. IMPRESSION: 1. The left hip is in normal anatomic alignment. There is no evidence of fracture or dislocation. 2. No radiopaque foreign bodies are seen within the soft tissues. [facility]-[id number] Performing Organization Address City/State/Zipcode Phone Number BARBARA JACKSON [address] [place] [address] * EMG General Request (01/07/2018 1:30 PM [...] At NERVE CONDUCTION AND ELECTROMYOGRAPHY REPORT Neurological [place], [facility]; [place], [place] [address]; Name: Vu Alvarez(F 1210) Date of Procedure: January 07, 2018 Location: Sex: Male Date of :46 Referring Physician: Saran Grimes M.D.FAX: Nerve Conduction(Latencies in msec, Amplitudes uV, Distance cm, Velocity M/Sec) Right Motor Nerves Dist. Lat. Prox lat. D. amp. P. Amp.Dist. Velocity Right Femoral5.54.1 Right Sensory Nerves Dist. Lat. Prox lat. Dist. amp. Prox Amp. Distance Velocity Right Vmymmqarjrbvtkm35.0 Right Lat. Fem, Cut. .0 Left Motor Nerves Dist. Lat. Prox lat. D. amp. P. Amp.Dist. Velocity Left Femoral5.05.5 Left Sensory Nerves Dist. Lat. Prox lat. Dist. amp. Prox Amp. Distance Velocity Left Xpfvkhpjxiadfxz52.0 Left Lat. Fem. Cut. iuebxb17.0 Electromyography (Motor Unit in mV; H=High; L=Low; [...] At NERVE CONDUCTION AND ELECTROMYOGRAPHY REPORT Neurological [place], [facility] [facility]; [place], [place] [address]; Name: Vu Alvarez(F 1210) Date of Procedure: [...] Dist. amp. Prox Amp. Distance Velocity Right Qwvwwokenzr79.0 Right Superficial Peroneal .0 Left Motor Nerves Dist. Lat. Prox lat. D. amp. P. Amp.Dist. Velocity Left Peroneal EDB 5.515.11.6 1.333.5 34.9 Left Tibial4.816.16.4 5.336.3 32.2 Left Peroneal F Wave absent Left Tibial F Wave 58.7 Left Sensory Nerves Dist. Lat. Prox lat. Dist. amp. Prox Amp. Distance Velocity Left Jloncuimbht68.0 Left Superficial Peroneal xbeqsq07.0 Right Soleus (H Reflex Response Latency): 39.8 [...] included. Phosphorus 3.8 2.4 - 4.5 mg/dL [facility] DEPARTMENT OF PATHOLOGY AND GENOMIC MEDICINE Specimen Plasma specimen Performing Organization Address City/State/Zipcode Phone Number [facility] DEPARTMENT OF [address] [place] [address] PATHOLOGY AND GENOMIC MEDICINE * Urinalysis screen and microscopy, with reflex to culture (12/31/2017 10:52 PM CDT) Only the most recent of 3 results within the time period is included. Specimen site Catheterized [facility] DEPARTMENT OF PATHOLOGY AND GENOMIC MEDICINE Color, UA Straw [facility] DEPARTMENT OF PATHOLOGY AND GENOMIC MEDICINE Appearance, UA Clear [facility] DEPARTMENT OF PATHOLOGY AND GENOMIC MEDICINE Specific gravity, UA 1.028 1.001 - 1.035 [facility] DEPARTMENT OF PATHOLOGY AND GENOMIC MEDICINE pH, UA 6.0 5.0 - 8.5 [facility] DEPARTMENT OF PATHOLOGY AND GENOMIC MEDICINE Protein, UA 1+ (A) Negative [facility] DEPARTMENT OF PATHOLOGY AND GENOMIC MEDICINE Glucose, UA 3+ (A) Negative [facility] DEPARTMENT OF PATHOLOGY AND GENOMIC MEDICINE Ketones, UA Trace (A) Negative [facility] DEPARTMENT OF PATHOLOGY AND GENOMIC MEDICINE Bilirubin, UA Negative Negative [facility] DEPARTMENT OF PATHOLOGY AND GENOMIC MEDICINE Blood, UA Large (A) Negative [facility] DEPARTMENT OF PATHOLOGY AND GENOMIC MEDICINE Nitrite, UA Negative Negative [facility] DEPARTMENT OF PATHOLOGY AND GENOMIC MEDICINE Urobilinogen, UA <2.0 <2.0 [facility] DEPARTMENT OF PATHOLOGY AND GENOMIC MEDICINE Leukocyte esterase, UA Trace (A) Negative [facility] DEPARTMENT OF PATHOLOGY AND GENOMIC MEDICINE Epithelial cells, UA <1 /HPF [facility] DEPARTMENT OF PATHOLOGY AND GENOMIC MEDICINE WBC, UA 2 (H) 0 - 1 /HPF [facility] DEPARTMENT OF PATHOLOGY AND GENOMIC MEDICINE RBC, UA 102 (H) 0 - 5 /HPF [facility] DEPARTMENT OF PATHOLOGY AND GENOMIC MEDICINE Bacteria, UA None seen None seen [facility] DEPARTMENT OF PATHOLOGY AND GENOMIC MEDICINE Yeast, UA None seen [facility] DEPARTMENT OF PATHOLOGY AND GENOMIC MEDICINE Yeast with pseudohyphae, None seen [facility] DEPARTMENT UA PATHOLOGY AND GENOMIC MEDICINE Calcium oxalate crystals, Few [facility] DEPARTMENT OF UA PATHOLOGY AND GENOMIC MEDICINE Specimen Urine Performing Organization Address City/[facility] Phone Number [facility] DEPARTMENT OF [address] [place] [address] PATHOLOGY AND GENOMIC MEDICINE * Gram stain (12/31/2017 10:52 PM CDT) Only the most recent of 2 results within the time period is included. Gram stain result Rare WBC's [facility] DEPARTMENT OF No organisms seen PATHOLOGY AND Comment: GENOMIC MEDICINE Specimen Information Specimen Source: Urine Specimen Site: Catheterized Specimen Urine - Catheterized Performing Organization Address City/[facility] Phone Number [facility] DEPARTMENT OF [address] [place] [address] PATHOLOGY AND GENOMIC MEDICINE * Urine culture (12/31/2017 10:52 PM CDT) Only the most recent of 3 results within the time period is included. Urine culture isolate No growth after 1 day. [facility] DEPARTMENT OF Comment: PATHOLOGY AND Specimen Information GENOMIC MEDICINE Specimen Source: Urine Specimen Site: Catheterized Specimen Urine - Catheterized Performing Organization Address City/[facility] Phone Number [facility] DEPARTMENT OF [address] [place] [address] PATHOLOGY AND GENOMIC MEDICINE * Type and screen (12/31/2017 10:10 PM CDT) ABO grouping O [facility] DEPARTMENT OF PATHOLOGY AND GENOMIC MEDICINE Rh type POS [facility] DEPARTMENT OF PATHOLOGY AND GENOMIC MEDICINE Antibody screen (gel) NEG [facility] DEPARTMENT OF PATHOLOGY AND GENOMIC MEDICINE Specimen Blood Performing Organization Address [facility] Phone Number [facility] DEPARTMENT OF [address] [place] [address] PATHOLOGY AND GENOMIC MEDICINE * US Renal [...] is unremarkable. IMPRESSION: Normal renal ultrasound examination. [employer]-[id number] Procedure Note Hm Interface, Radiology Results Incoming [...] is unremarkable. IMPRESSION: Normal renal ultrasound examination. [employer]-[id number] Performing Organization Address [facility] [place] [address] * Magnesium level (12/31/2017 6:57 PM CDT) Magnesium 2.0 1.6 - 2.4 mg/dL [facility] DEPARTMENT OF PATHOLOGY AND GENOMIC MEDICINE Specimen Plasma specimen Performing Organization Address [facility] Phone Number [facility] [place] [address] PATHOLOGY AND GENOMIC MEDICINE * Lactic acid level, SEPSIS - Now and repeat 2x every 3 hours (12/29/2017 7:30 PM CDT) Only the most recent of 4 results within the time period is included. Lactic acid 1.5 0.5 - 2.2 mmol/L [facility] DEPARTMENT OF PATHOLOGY AND GENOMIC MEDICINE Specimen Blood Performing Organization Address [facility] [place] [address] PATHOLOGY AND [facility] MEDICINE * CT Abdomen Pelvis W Contrast (12/29/2017 5:19 PM CDT) Narrative Performed At EXAMINATION:CT ABDOMEN PELVIS W CONTRAST [facility] CLINICAL HISTORY:check colitis COMPARISON:December 2017. TECHNIQUE: Multiple [...] left lung base. IMPRESSION: No acute abnormality. [id number] Procedure Note Interface, Radiology Results Incoming - [...] left lung base. IMPRESSION: No acute abnormality. [id number] Performing Organization Address City/State/Zipcode Phone Number [facility] [address] [place] [address] * ECG ED Preliminary Interpretation - NOT AN ORDER (12/29/2017 3:59 PM CDT) Narrative Performed At Dilia Nelson MD 12/30/2017 10:44 AM ECG ED Preliminary Interpretation - Not an Order Performed by: DILIA NELSON Authorized by: DILIA NELSON ECG reviewed by ED Physician in the absence of a steam fitter helper: yes Previous ECG: Previous ECG:Unavailable Interpretation: Interpretation: [...] included. Lipase 31 13 - 60 U/L [facility] DEPARTMENT OF PATHOLOGY AND GENOMIC MEDICINE Specimen Plasma specimen Performing Organization Address City/[facility] Hospital[facility] [place] [address] PATHOLOGY AND GENOMIC MEDICINE * Lactic acid level (12/29/2017 3:50 PM CDT) Lactic acid 2.7 (H) 0.5 - 2.2 mmol/L [facility] DEPARTMENT OF PATHOLOGY AND GENOMIC MEDICINE Specimen Plasma specimen Performing Organization Address [facility] Phone Number [facility] [place] [address] PATHOLOGY AND [employer] MEDICINE * MRI Lumbar Spine Wo Contrast [...] clinically warranted evaluation with lumbar myelograms recommended. [facility]-[id number] Procedure Note Hm Interface, Radiology Results Incoming [...] clinically warranted evaluation with lumbar myelograms recommended. [facility]-[id number] Performing Organization Address [facility] Phone Number [facility] [address] [place] [address] * XR Knee 3 Vw Right (12/21/2017 4:42 PM CDT) Narrative Performed At EXAM:XR KNEE 3 VW RIGHT [facility] CLINICAL:Knee traumatenderness or effusioncan walkinitial exam COMPARISON:None. IMPRESSION: 1.No acute fracture or dislocation. 2.Medial and lateral compartment chondrocalcinosis. 3.Mild degenerative osteoarthrosis changes most prominent in the medial compartment. 4.Small superior patellar spur. 5.No significant knee joint effusion. [id number] Procedure Note Interface, Radiology Results Incoming - [...] spur. 5. No significant knee joint effusion. [facility]-[id number] Performing Organization Address [facility] Phone Number [facility] [address] [place] [address] * XR Elbow 3+ Vw Left (12/21/2017 4:41 PM CDT) Narrative Performed At EXAMINATION:XR ELBOW 3VW LEFT [facility] CLINICAL HISTORY:JOINT PAINELBOW COMPARISON:None. IMPRESSION: TECHNIQUE: AP, lateral, and oblique left elbow radiographs are reviewed. There is no fracture, subluxation, joint space abnormality, focal bone lesion, or soft tissue abnormality. [facility]-[id number] Procedure Note Interface, Radiology Results Incoming - 12/21/2017 5:26 PM CDT EXAMINATION: XR ELBOW 3 VW LEFT CLINICAL HISTORY: JOINT PAIN ELBOW COMPARISON: None. IMPRESSION: TECHNIQUE: AP, lateral, and oblique left elbow radiographs are reviewed. There is no fracture, subluxation, joint space abnormality, focal bone lesion, or soft tissue abnormality. [facility]-[id number] Performing Organization Address City/State/Zipcode Phone Number [facility] [address] [place] [address] * CT Head Wo Contrast (12/21/2017 5:07 [...] loss seen, and consider normal pressure hydrocephalus. [facility]-[id number] Procedure Note Interface, Radiology Results Incoming - [...] loss seen, and consider normal pressure hydrocephalus. [facility]-[id number] Performing Organization Address [facility] Phone Number [facility] [address] [place] [address] * XR Abdomen 1 Vw (12/20/2017 9:41 PM CDT) Narrative Performed At PROCEDURE:XR ABDOMEN 1 VW RAD[facility] CLINICAL HISTORY:Colitis, Pain COMPARISON:None. TECHNIQUE: A single [...] spinal fusion. IMPRESSION: Nonspecific bowel gas pattern. [facility]-[id number] . Procedure Note [facility], Radiology Results Incoming - 12/20/2017 10:08 PM [...] spinal fusion. IMPRESSION: Nonspecific bowel gas pattern. [facility]-[id number] . Performing Organization Address [facility] HospitalDIVINE BOOKSoh Phone Number [address] [place] [address] * NM Hepatobiliary (HIDA Scan) (12/20/2017 7:19 PM CDT) Narrative Performed At Procedure:NE HEPATOBILIARY (HIDA SCAN) [facility] Clinical History:Cholelithiasis, Gall bladder wall thickening. Technique: The patient was injected with 4 mCi of [id number] intravenously, followed by dynamic imaging of the [...] acute cholecystitis or common bile duct obstruction. [facility]-[id number] Procedure Note [facility], Radiology Results Incoming - 12/20/2017 7:24 PM CDT Procedure: NE HEPATOBILIARY (HIDA SCAN) Clinical History: Cholelithiasis, Gall bladder wall thickening. Technique: The patient was injected with 4 mCi of [id number] intravenously, followed by dynamic imaging of the [...] acute cholecystitis or common bile duct obstruction. [facility]-[id number] Performing Organization Address City/[facility]/Zipcode Phone Number [facility] [address] [place] [address] * Amylase level (12/20/2017 3:29 PM CDT) Amylase 35 28 - 100 U/L [facility] DEPARTMENT OF PATHOLOGY AND GENOMIC MEDICINE Specimen Plasma specimen Performing Organization Address [facility] Phone Number [facility] DEPARTMENT [address] [address] PATHOLOGY AND GENOMIC MEDICINE * Hepatic function panel (12/20/2017 3:29 PM CDT) Albumin 3.4 (L) 3.5 - 5.0 g/dL [facility] DEPARTMENT OF PATHOLOGY AND GENOMIC MEDICINE Total bilirubin <0.2 0.0 - 1.2 mg/dL [facility] DEPARTMENT OF PATHOLOGY AND GENOMIC MEDICINE Bilirubin direct <0.2 0.0 - 0.3 mg/dL [facility] DEPARTMENT OF PATHOLOGY AND GENOMIC MEDICINE Alkaline phosphatase 107 40 - 129 U/L [facility] DEPARTMENT OF PATHOLOGY AND GENOMIC MEDICINE Protein 7.4 6.3 - 8.3 g/dL [facility] DEPARTMENT OF Comment: PATHOLOGY AND [place] GENOMIC MEDICINE 4.6-7.0 g/dL 1 week 4.4-7.6 g/dL 7 months-1year 5.1-7.3 g/dL 1-2 years5.6-7 .5 g/dL >3 years6.0-8 .0 g/dL 18-150 6.3-8.3 g/dL ALT 25 5 - 50 U/L [facility] DEPARTMENT OF PATHOLOGY AND GENOMIC MEDICINE AST 28 10 - 50 U/L [facility] DEPARTMENT OF PATHOLOGY AND GENOMIC MEDICINE Specimen Plasma specimen Performing Organization Address City/[facility] Phone Number [place] [phone] [place] [address] PATHOLOGY AND GENOMIC MEDICINE * Hemoglobin A1c (12/19/2017 5:54 AM CDT) Hemoglobin A1C 6.2 (H) 4.0 - 5.6 % [facility] DEPARTMENT OF Comment: PATHOLOGY AND HbA1c cutoffs for diagnosing [facility] MEDICINE diabetes: 4.0% - 5.6%=normal 5.7% - 6.4%=increased risk for diabetes (prediabetes) >=6.5%=diabetes Goals for glycemic control (ADA 2016) < 7.0%Target for non adults with diabetes. More or less stringent targets may be appropriate for individual patients. <7.5% Target for Children and adolescents with type 1 diabetes. Specimen Blood Performing Organization Address City/[facility] Phone Number [facility] OF [address] [place] [address] PATHOLOGY AND GENOMIC MEDICINE * Lipid panel (12/19/2017 4:00 AM CDT) Cholesterol 153 <200 mg/dL [facility] DEPARTMENT OF PATHOLOGY AND GENOMIC MEDICINE Triglycerides 112 <150 mg/dL [facility] DEPARTMENT OF PATHOLOGY AND GENOMIC MEDICINE HDL cholesterol 39 (L) >40 mg/dL [facility] DEPARTMENT OF PATHOLOGY AND GENOMIC MEDICINE LDL cholesterol 106 (H)Comment: Result <100 mg/dL [facility] DEPARTMENT OF obtained by direct LDL PATHOLOGY AND measurement GENOMIC MEDICINE Lipid panel [facility] DEPARTMENT OF interpretation Comment: PATHOLOGY AND [...] specimen Performing Organization Address City/State/Zipcode Phone Number [facility] DEPARTMENT OF [address] [place] [address] PATHOLOGY AND GENOMIC MEDICINE * US Abdomen [...] are unremarkable. 5.There is no suspicious fluid. [facility]-[id number] Procedure Note Hm Interface, Radiology Results Incoming [...] unremarkable. 5. There is no suspicious fluid. [facility]-[id number] Performing Organization Address City/[facility] Phone Number [facility] [address] [place] [address] * Prostate specific antigen (12/18/2017 4:00 AM CDT) PSA 2.2 0.0 - 4.0 ng/mL [facility] DEPARTMENT OF Comment: PATHOLOGY AND The AARON 8000 PSA immunoassay [employer] was used. Results obtained with different assay methods or kits should not be used interchangeably and may be different. Specimen Plasma specimen Performing Organization Address [facility] Phone Number [facility] DEPARTMENT OF [address] [place] [address] PATHOLOGY AND [employer] MEDICINE * CT Abdomen Pelvis Wo Contrast [...] have resolved. Other incidental findings as above. [facility]-[id number] Procedure Note [facility], Radiology Results Incoming - 12/17/2017 8:33 PM [...] have resolved. Other incidental findings as above. [facility]-[id number] Performing Organization Address City/State/Zipcode Phone Number [facility] [address] [place] [address] after 07/24/2017 Insurance Payer Benefit Subscriber ID Type Phone Address Plan / Group MEDICARE MEDICARE xxxxxxxxxx Medicare [place], [place] PART A AND B AARP AARP xxxxxxxxxx Commercial SUPPLEMENT Advance Directives Patient has advance care planning documents, and code status on file. For more i nformation, please contact: Gerardo Buchanan [address] [place] [address] Date Inactivated Comments Code Status Date Activated 02/13/2018 8:43 PM Full Code 02/07/2018 7:34 PM Code Status decision reached by: Patient 02/07/2018 7:34 PM Full Code 02/07/2018 7:24 PM Code Status decision reached by: Patient 01/08/2018 9:35 PM Full Code 12/31/2017 6:56 PM Code Status decision reached by: Patient
--- OUTSIDE RECORDS SUMMARY | 2018-07-25 05:41 | XMS REPORT ---
Author [facility] Address Unknown Phone Unavailable Care Team Providers Care Development Analyst Name Role Phone Debbie HANNA Unavailable Unavailable Problems This patient has no known problems. Allergies, Adverse Reactions, Alerts This patient has no known allergies or adverse reactions. Medications This patient has no known medications. Results Test Description Test Time Test Comments Text Results Atomic Results Result Comments CT CERVICAL SPINE WO 2018-07-25 02:48:00 [place] [id number] [place] [address] Patient Name: VU URIBE MR #: [id number] : 1950 Age/Sex: 68/M Req #: [id number] Adm Physician: Ordered by: EVANGELISTA HANNA MD Report #: [id number] Location: ER Room/Bed: Procedure: [id number] CT/CT CERVICAL SPINE WO Exam Date: 07/25/18 Exam Time: 0153 REPORT STATUS: Signed History: Fall Comparison studies: None Techni que: Axial images were obtained through the cervical region.. Coronal and sagittal images reconstructed from the axial data. Dose modulation, iterative reconstruction, and/or weight based adjustment of the mA/kV was utilized to reduce the radiation dose to as low as reasonably achievable. Intravenous contrast: None Findings: Fractures: None. Soft tissues: No gross abnormalities. Atlantoaxial articulation: Mild degenerative changes. Alignment: Normal lordosis. No scoliosis. Cervicomedullary junction: No abnormalities. The foramen magnum is patent. Vertebrae: No infection or neoplasm. Degenerative changes: Mildly degenerated discs from C3 to C7. Foraminal stenosis, mild right at C3-4, left at C6-C7 due to to mild uncovertebral arthrosis. No significant spinal canal stenosis IMPRESSION: 1. No acute abnormalities. 2. Cannot adequately evaluate for ligament, spinal cord and or vascular abnormalities. 3. Mild degene rative changes. Signed by: Dr. Vicente Stewart M.D. on 07/25/2018 2:50 AM Dictated By: VICENTE STEWART MD, MD 9 Transcribed By: VIOLA on 07/25/18249 COPY TO: EVANGELISTA HANNA MD CHEST SINGLE (PORTABLE) 2018-07-25 02:08:00 [place] [address] Patient Name: VU URIBE MR #: [id number] : 1950 Age/Sex: 68/M Req #: [id number] Adm Physician: Ordered by: EVANGELISTA HANNA MD Report #: [id number] Location: ER Room/Bed: Procedure: [id number] DX/CHEST SINGLE (PORTABLE) Exam Date: 07/25/18 Exam Time: 0157 REPORT STATUS: Signed EXAM: XR CHEST 1 VIEW DATE: 07/25/2018 1:10 AM INDICATION: Hypoglycemia/fall COMPARISON: None FINDINGS: Lines and Tubes: None Heart and Mediastinum: No acute cardiomediastinal findings. Lungs and Pleura: Patchy opacity left lung base. Elevation right hemidiaphragm. Bones and Soft Tissues: No acute findings. IMPRESSION: 1. Patchy opacity left lung base, poorly evaluated due to underpenetration. Atelectasis versus pneumonia. Signed by: Dr. Gregory Quinones MD on 07/25/2018 2:09 AM Dictated By: GREGORY QUINONES MD 8 Transcribed By: VIOLA on 07/25/18208 COPY TO: EVANGELISTA HANNA MD CT BRAIN WO 2018-07-25 02:03:00 [place] [address] Patient Name: VU URIBE MR #: [id number] : 1950 Age/Sex: 68/M Req #: [id number] Adm Physician: Ordered by: EVANGELISTA HANNA MD Report #: [id number] Location: ER Room/Bed: Procedure: [id number] CT/CT BRAIN WO Exam Date: 07/25/18 Exam Time: 0153 REPORT STATUS: Signed History:Fall, loc Comparison studies: None Techni que: Axial images were obtained from the skull base to the vertex. Coronal and sagittal images reconstructed from the axial data. Dose modulation, iterative reconstruction, and/or weight based adjustment of the mA/kV was utilized to reduce the radiation dose to as low as reasonably achievable. Intravenous contrast: None Findings: Scalp/skull: No abnormalities. Extra-axial spaces: No masses. No fluid collections. Brain sulci: Mildly prominent. Ventricles: Moderately dilated but no acute hydrocephalus. Parenchyma: Ill defined confluent hypodensities in the supratentorial white matter are small vessel ischemic changes. No masses, hemorrhage, acute or chronic cortical vascular insults. Sellar/suprasellar region: No abnormalities. Craniocervical junction: Patent foramen magnum. No Chiari one malformation. Incidental findings: Atherosclerotic calcifications in the carotid siphons and vertebral arteries. Impression: 1. No acute abnormalities. 2. Moderate nonspecific dilatation of the ventricles. No previous studies available for comparison. It is presumed to be chronic and compensated as the cerebral sulci are patent. The sylvian fissures are not dilated to suggest normal pressure hydrocephalus. Chronic findings: 1. Mild generalized volume loss. 2. Moderate supratentorial white matter small vessel ischemic changes. Signed by: Dr. Vicente Stewart M.D. on 07/25/2018 2:08 AM Dictated By: VICENTE STEWART MD, MD 7 Transcribed By: VIOLA on 07/25/18207 COPY TO: EVANGELISTA HANNA MD
[2018-07-25] MEDS ORDERED: MEROPENEM 1 GM VIAL IV SCH (06:00)
[2018-07-25] MEDS ORDERED: MEROPENEM 1GM 100 ML IV SCH (06:00)
[2018-07-25] MEDS ORDERED: NORCO 10-325 T1 EACH PO (06:42)
[2018-07-25] MEDS ORDERED: FINASTERIDE5 MG PO (06:42)
[2018-07-25] MEDS ORDERED: MORPHINE SULFAT30 M2 PO (06:42)
[2018-07-25] MEDS ORDERED: RAMIPRIL5 MG PO (06:42)
[2018-07-25] MEDS ORDERED: DOCUSATE SODIU100 MG PO (06:42)
[2018-07-25] MEDS ORDERED: GABAPENTIN400 MG PO (06:42)
[2018-07-25] MEDS ORDERED: TAMSULOSIN HCL0.4 MG PO (06:42)
[2018-07-25] MEDS ORDERED: ATORVASTATIN CA20 MG PO (06:42)
[2018-07-25 09:22] LABS: CREATINE KINASE MB 1.1 ng/mL (0-5.0)
[2018-07-25] MEDS ORDERED: HYDROCODONE/APAP 10MG-325MG TAB PO PRN ×2 (11:00→11:15)
[2018-07-25] MEDS ORDERED: CEFTRIAXONE SOD 1 GM/NS 50 ML 50 ML IV SCH (11:00)
[2018-07-25] MEDS ORDERED: LACTULOSE SYRUP 20 GM/30 ML UDC PO ONE (11:00)
[2018-07-25] MEDS ORDERED: MORPHINE SULFATE 30 MG TAB ER PO PRN (11:00)
[2018-07-25] MEDS ORDERED: MORPHINE SULFATE 15MG TAB CR PO PRN (11:15)
[2018-07-25] MEDS ORDERED: POTASSIUM CHLORIDE 20 MEQ TAB CR PO NR (11:30)
[2018-07-25] MEDS: DOXYCYCLINE HYCLATE TABLET 100 MG TAB PO SCH ×2 (12:03→21:35)
[2018-07-25] MEDS: GABAPENTIN 400 MG CAP PO SCH ×3 (12:03→21:35)
[2018-07-25] MEDS ORDERED: CLONIDINE HCL 0.1 MG TAB PO PRN (15:30)
--- NOTE | 2018-07-25 15:43 | Diagnostic Imaging Report ---
Examination: Single AP view of the chest. COMPARISON: None. INDICATION: Evaluate for pneumonia DISCUSSION: Lines/tubes: None. Lungs: The lungs are well inflated and clear. No pneumonia or pulmonary edema. Pleura: No pleural effusion or pneumothorax. Heart and mediastinum: The heart and the mediastinum are unremarkable. Bones and soft tissues: No acute bony abnormalities. IMPRESSION: 1. No acute cardiopulmonary abnormalities. Signed by: Dr. Stepan Ruiz M.D. on 07/25/2018 3:40 PM
[2018-07-25] MEDS ORDERED: MORPHINE SULFATE 15MG TAB CR PO SCH (17:00)
[2018-07-25] MEDS ORDERED: NON-FORMULARY MEDICATION (Flecainide Acetate 100 MG) PO SCH (17:00)
[2018-07-25] MEDS: MORPHINE SULFATE INJ 4 MG/ML INJ 1ML IV PRN (19:14)
[2018-07-25] MEDS: FLECAINIDE ACETATE 100 MG TAB PO SCH (19:16)
[2018-07-25] MEDS: LACTOBACILLUS ACIDOPHILUS CAPSULE PO SCH (19:16)
[2018-07-25] MEDS: ENOXAPARIN SOD INJ 40 MG/0.4 ML SYR SC SCH (19:16)
--- NOTE | 2018-07-25 20:09 | NUR ---
Patient arrived to the unit (MS3) as a transfer from ICU to 290 via stretcher bed. Family at bedside. Pt alert and oriented x3. Moderately weak on bilateral lower extremities. [place] was taken out at ICU around 1999 and pt is due to void till 020. Urinal at bedside. Fingerstick blood sugar and vital signs to be checked. Otherwise pt condition stable. Call cui within reach. Bed alarm active.
--- NOTE | 2018-07-25 20:20 | NUR ---
REPORT CALLED TO STEPHAN KERR. SCHMID CATHETER DISCONTINUED, PATIENT TOLERATED PROCEDURE WELL. TRANSFERRED TO ROOM 294 PER W/C. FAMILY MEMBERS AT BEDSIDE
--- NOTE | 2018-07-25 20:40 | NUR ---
Fingerstick blood glucose was 264. Patient stated he feels fine. No sliding scale insulin ordered at this time.
[2018-07-25] MEDS: ATORVASTATIN 20 MG TAB PO SCH (21:35)
[2018-07-26] VITALS (8 sets, daily range): BP systolic 148–152; BP diastolic 76–93
--- NOTE | 2018-07-26 00:14 | Consultation ---
DATE OF CONSULTATION: July 25, 2018 CARDIAC CONSULTATION REASON FOR THE CONSULTATION: Syncope, hypertension, diabetes mellitus, paroxysmal atrial fibrillation. HISTORY: This is a 68-year-old gentleman who is known with long-standing history of hypertension, diabetes mellitus, hypertension, and chronic back problem. Patient had several back surgeries, but he continued to have severe pain, "There is loose screw near my nerve." This pain is progressively worse. Patient is also known with repeated falls mainly at night. Yesterday night, he had one of these episodes where he passed out. He was rushed to the emergency room after he passed out and he fell on the floor. His glucose was 22, he was treated as such. It was noted patient does have several cardiac risk factors. Furthermore, he is on flecainide for arrhythmias, and because of his multiple risk factors, cardiac consultation is obtained. I visited the patient, who unfortunately cannot do any activity account of his severe back pain. His level of activity is very limited. At this level of activity, he does have easy fatigability, shortness of breath on exertion, no angina. There is no orthopnea, but there is sleep apnea. There are several episodes of syncope and near syncope and repeated fall, worse at night. It is going on for the last few months. The patient had several admissions to [facility]. He is also known to have history of paroxysmal atrial fibrillation, seen by Dr. Fink (sp?) and he is on flecainide for long time. He is also taking his antihypertensive medication in addition to his diabetic medication. REVIEW OF SYSTEMS: Extensive to all the 14 systems, only pertinent positive and negative ones will be mentioned. GENERAL: No fever, no chills. HEENT: No decreased hearing, no vision abnormality. PULMONARY AND CARDIAC: As per acute illness. GI: GERD-like symptoms. Constipation at times. : Difficulty urination. MUSCULOSKELETAL: Severe low back pain radiating to the back with very limited activity and he needs to take several pain medications. HEMATOLOGICAL: No easy bruising or bleeding. ENDOCRINE: History of diabetes mellitus. NEUROLOGICAL: Severe low back pain, severe peripheral neuropathy, and radiculopathy. SOCIAL HISTORY: He is nonsmoker, non-alcohol drinker. He does have good family support. PAST MEDICAL HISTORY: 1. Chronic back pain. 2. Status post back surgery. 3. Radiculopathy. 4. Peripheral neuropathy. 5. Repeated falls. 6. Repeated syncope. 7. Hypertension. 8. Hyperlipidemia. 9. Diabetes mellitus. 10. Prostate problem. 11. Chronic plan. 12. Paroxysmal atrial fibrillation. FAMILY HISTORY: Few members of his family with diabetes mellitus and coronary artery disease. HOME MEDICATIONS: Long list including Norvasc 10 mg a day, Lipitor 20 mg a day, aspirin 81 mg a day, flecainide 100 mg twice a day, Prinivil 5 mg a day, Flomax 0.4 mg a day, gabapentin 800 mg q.i.d., Altace 5 mg a day. ALLERGIES: LINCOMYCIN AND SOMA. PHYSICAL EXAMINATION: VITAL SIGNS: Obese gentleman. Height of 5 feet 10 inches. Weight of 233 pounds. Blood pressure 150/80, heart rate of 60, respiratory rate of 18. Afebrile. HEENT: Pupils are equal and reactive. NECK: No elevation of jugular venous pulsation. No bruit. CHEST: Decreased air entry, but clear to auscultation and percussion. HEART: PMI at fifth left intercostal space. Normal first and second heart sounds. ABDOMEN: Soft. No organomegaly. No abdominal bruits. EXTREMITIES: No cyanosis, no clubbing, no edema. NEUROLOGIC: Awake, alert, oriented. No gross deficits. Gait is not examined. LAB DATA: Sodium of 138, potassium of 3.4, BUN of 35, creatinine of 0.48, glucose of 22. White blood cell count of 16.1, hemoglobin of 14.2, hematocrit 43%, platelet count of . CKs are normal. TSH of 1.6. EKG, normal sinus rhythm, nonspecific ST changes. IMPRESSION AND PLAN: 1. Syncope, most likely secondary to hypoglycemia, documented by low blood sugar of 22, arrhythmias and other etiologies are probability. 2. Hypertension. 3. Diabetes mellitus with end-organ damage. 4. Paroxysmal atrial fibrillation. 5. Hypertensive heart disease. 6. Chronic low back pain. 7. Very limited activity with decreased exercise tolerance. 8. Probability of coronary artery disease in this age group AND MULTIPLE CARDIAC RISK FACTORS. Cardiac-potter, my recommendation is to keep patient on telemetry, to watch for arrhythmia, to watch his blood pressure. I will continue his flecainide since he is on that and will observe him on telemetry for that. An echocardiogram will be helpful. If patient does have low ejection fraction, then management will be different. Will follow patient's progression with you. I would like to thank you for your kind referral. Job#: [id number] DR CARLOS
[2018-07-26] MEDS ORDERED: CEFTRIAXONE SOD 1 GM/NS 50 ML 50 ML IV SCH (04:00)
[2018-07-26] MEDS ORDERED: SODIUM CHLORIDE 0.9% 250ML 250 ML ONE (04:33)
[2018-07-26 06:25] LABS: BASOPHILS # (AUTO) 0.1 (0.0-0.1); EOSINOPHILS # (AUTO) 0.3 (0.0-0.4); EOSINOPHILS % 2.5 % (0.0-6.0); HEMATOCRIT 40.7 % (38.2-49.6); HEMOGLOBIN 13.2 g/dL (14.0-18.0); LYMPHOCYTES # (AUTO) 2.8 (1.0-3.2); MEAN CORPUSCULAR HEMOGLOBIN 28.8 pg (28-32); MEAN CORPUSCULAR HGB CONC 32.4 g/dL (31-35); MEAN CORPUSCULAR VOLUME 88.9 fL (81-99); MONOCYTES % 9.2 % (4.4-11.3); NEUTROPHILS # (AUTO) 6.9 (2.1-6.9); NEUTROPHILS % 61.3 % (38.7-80.0); PLATELET COUNT 352 x10e3/uL (140-360); RED BLOOD COUNT 4.58 x10e6/uL (4.3-5.7); RED CELL DISTRIBUTION WIDTH 13.1 % (11.7-14.4)
[2018-07-26 07:00] LABS: ALANINE AMINOTRANSFERASE 30 IU/L (0-55); ALBUMIN 3.1 g/dL (3.5-5.0); ALBUMIN/GLOBULIN RATIO 0.8 (0.8-2.0); ALKALINE PHOSPHATASE 111 IU/L (40-150); ANION GAP 13.1 mmol/L (8-16); BLOOD UREA NITROGEN 14 mg/dL (7-26); BUN/CREATININE RATIO 18 (6-25); CALCIUM 9.4 mg/dL (8.4-10.2); CARBON DIOXIDE 25 mmol/L (22-29); CHLORIDE 103 mmol/L (98-107); CHOL/HDL RATIO 3.2 (3.9-4.7); CHOLESTEROL 103 MD/DL (0-199); EST GLOMERULAR FILTRATION RATE > 60 ML/MIN (60-); GLUCOSE 186 mg/dL (74-118); HDL CHOLESTEROL 32 MG/DL (40-60); LDL CHOLESTEROL 48 MG/DL (60-130); POTASSIUM 4.1 mmol/L (3.5-5.1); SODIUM 137 mmol/L (136-145); TRIGLYCERIDES 114 MG/DL (0-149)
[2018-07-26 07:20] LABS: THYROID STIMULATING HORMONE 0.794 uIU/mL (0.350-4.940)
[2018-07-26] MEDS: RAMIPRIL 5 MG CAP PO SCH (08:45)
[2018-07-26] MEDS: ASPIRIN 81 MG CHEW TAB PO SCH (08:45)
[2018-07-26] MEDS: GABAPENTIN 400 MG CAP PO SCH ×5 (08:46→20:43)
[2018-07-26] MEDS: TAMSULOSIN HCL 0.4 MG CAP PO SCH (08:46)
[2018-07-26] MEDS: AMLODIPINE BESYLATE 10 MG TAB PO SCH (08:46)
[2018-07-26] MEDS: FINASTERIDE 5 MG TAB PO SCH (08:46)
[2018-07-26] MEDS: FLECAINIDE ACETATE 100 MG TAB PO SCH ×2 (08:46→16:54)
[2018-07-26] MEDS: LACTOBACILLUS ACIDOPHILUS CAPSULE PO SCH ×2 (08:46→16:54)
[2018-07-26] MEDS: DOXYCYCLINE HYCLATE TABLET 100 MG TAB PO SCH (08:46)
[2018-07-26] MEDS: MORPHINE SULFATE INJ 4 MG/ML INJ 1ML IV PRN (09:18)
[2018-07-26] MEDS ORDERED: MORPHINE SULFATE INJ 4 MG/ML INJ 1ML IV PRN (13:30)
[2018-07-26] MEDS ORDERED: LIDOCAINE 5% PATCH TP SCH (16:00)
[2018-07-26] MEDS: INSULIN LISPRO 100 UNIT/1 ML 3ML VIAL SQ SCH ×2 (16:30→21:00)
[2018-07-26] MEDS: ENOXAPARIN SOD INJ 40 MG/0.4 ML SYR SC SCH (16:45)
[2018-07-26] MEDS: LINEZOLID 600 MG TAB PO SCH (16:54)
[2018-07-26] MEDS: METFORMIN HCL 500 MG TAB PO SCH (16:54)
--- NOTE | 2018-07-26 18:12 | NUR ---
CALLED AND SPOKE WITH DR. CHRISTINE REGARDING PATIENT'S REQUEST TO HAVE TELEMETRY REMOVED- RECEIVED ORDER TO D/C TELEMETRY.
--- NOTE | 2018-07-26 19:26 | NUR ---
PATIENT IS IN STABLE CONDITION WITH NO S/S OF RESPIRATORY DISTRESS. NO PAIN VOICED. BED ALARM ON. DIAPER APPLIED. CALL LIGHT IS WITHIN REACH, PATIENT INSTRUCTED TO CALL FOR ASSISTANCE NEEDED. REPORT GIVEN TO ONCOMING NURSE.
[2018-07-26] MEDS: ATORVASTATIN 20 MG TAB PO SCH (20:43)
[2018-07-27] VITALS: BP 157/89
[2018-07-27 04:00] VITALS: BP 155/78
--- NOTE | 2018-07-27 07:11 | NUR ---
PATIENT IS AWAKE AND LAYING IN BED- PATIENT IS IN STABLE CONDITION WITH NO S/S OF RESPIRATORY DISTRESS. NO PAIN VOICED. BED ALARM APPLIED. CALL LIGHT IS WITHIN REACH, PATIENT INSTRUCTED TO CALL FOR ASSISTANCE NEEDED.
[2018-07-27] MEDS: INSULIN LISPRO 100 UNIT/1 ML 3ML VIAL SQ SCH ×2 (07:30→11:30)
[2018-07-27 07:48] VITALS: BP 151/89
[2018-07-27] MEDS: GABAPENTIN 400 MG CAP PO SCH ×2 (08:41→12:27)
[2018-07-27] MEDS: FLECAINIDE ACETATE 100 MG TAB PO SCH (08:41)
[2018-07-27] MEDS: TAMSULOSIN HCL 0.4 MG CAP PO SCH (08:41)
[2018-07-27] MEDS: LACTOBACILLUS ACIDOPHILUS CAPSULE PO SCH (08:41)
[2018-07-27] MEDS: LINEZOLID 600 MG TAB PO SCH (08:41)
[2018-07-27] MEDS: AMLODIPINE BESYLATE 10 MG TAB PO SCH (08:41)
[2018-07-27] MEDS: FINASTERIDE 5 MG TAB PO SCH (08:41)
[2018-07-27] MEDS: METFORMIN HCL 500 MG TAB PO SCH (08:42)
[2018-07-27] MEDS: RAMIPRIL 5 MG CAP PO SCH (08:42)
[2018-07-27] MEDS: ASPIRIN 81 MG CHEW TAB PO SCH (08:42)
[2018-07-27] MEDS ORDERED: LIDOCAINE 5% PATCH TP SCH ×2 (09:00)
[2018-07-27 09:56] VITALS: BP 151/89
[2018-07-27 11:58] VITALS: BP 152/81
[2018-07-27] MEDS ORDERED: HUMULIN R100 UNIT/2 SQ (15:37)
[2018-07-27] MEDS ORDERED: TETRACYCLINE H500 MG PO (15:37)
[2018-07-27] MEDS ORDERED: NOVOLIN N100 UNIT/1 SQ (15:37)
--- NOTE | 2018-07-27 15:55 | NUR ---
Met with pt and notified him of his discharge order. Educated him on IMM letter. He verbalized understanding and signed. Copy to him and original placed in chart.
[2018-07-27 16:07] VITALS: BP 156/83
--- NOTE | 2018-07-27 18:43 | NUR ---
PATIENT DISCHARGE HOME- PATIENT OFF THE UNIT AT 1737 PER WHEELCHAIR ACCOMPANIED BY THE RN TO THE FRONT LOBBY. PATIENT IS IN STABLE CONDITION WITH NO S/S OF RESPIRATORY DISTRESS. NO PAIN VOICED. IV'S REMOVED WITH TIP INTACT AT 1719. DISCHARGE TEACHING, INSTRUCTIONS, AND MEDICATIONS GIVEN TO THE PATIENT. ALL PERSONAL ITEMS TAKEN WITH THE PATIENT AND HIS FAMILY.
--- NOTE | 2018-07-28 06:42 | Discharge Summary ---
COVERAGE FOR: Dr. Stepan Pereyra. HOSPITAL PHYSICIAN: Dr. Stepan Pereyra. CONSULTANTS: Dr. Bosch. PRIMARY DIAGNOSES 1. Critical hypoglycemia. 2. Altered mental status. SECONDARY DIAGNOSES 1. Atrial fibrillation. 2. Chronic back pain. 3. Hypertension. 4. Diabetes. 5. Staphylococcal epidermidis urinary tract infection. 6. Repeated falls and syncope. 7. Neuropathy. 8. Radiculopathy. 9. Prostate problems. HOSPITAL COURSE: Mr. Alvarez was admitted after being on stable amounts of insulin with 24 units of short-acting insulin a.c. as well as 24 units of NPH twice a day. He said there has been no change there. He is also on metformin 1000 mg twice a day. When he came to the emergency room, he had a blood sugar of 22. There was difficulty correcting this. He required ICU monitoring. The patient was diagnosed with UTI and he eventually grew out Staphylococcus epidermidis greater than 100,000 organisms/mL. After monitoring, his blood sugars were seen stabilized and he was allowed for outpatient discharge after significant improvement. Luckily, he did not sustain any significant end-organ damage that lingered. Medicines were modified. Family states he will get in-touch with an automotive generator repairer to assist in care. The patient was not found with any significant new cardiac findings. The patient all medicines including flecainide for long time. DISCHARGE MEDICATIONS: Medication list provided and created. Please see this for details. DIET: Diabetic/cardiac diet. ACTIVITY: As tolerated. DISPOSITION: To home, daughter to help out as well as other family members. DISCHARGE INSTRUCTIONS: Patient instructed to make a glucose log as we have decreased his insulin to take this to his managing doctor whether it be an automotive generator repairer or his primary doctor. Greater than 30 minutes in direct care and coordination today. I discussed with the patient and daughter at length as well as nursing staff. Job#: [id number] PRAVIN
== END 2018-07-27 17:36 | disposition home or self-care (01) | DRG 917 ==
LOC: ER 00:34 → ERHOLD 05:35 → ICU 05:45 → MED/SURG3 20:15
PROVIDERS: ADMIT Internal Medicine; ATTEND Internal Medicine
DX: T38.3X1A Poisoning by insulin and oral hypoglycemic [antidiabetic] drugs, accidental (unintentional), initial encounter (principal); G93.41 Metabolic encephalopathy; J98.11 Atelectasis; N10 Acute pyelonephritis; E11.649 Type 2 diabetes mellitus with hypoglycemia without coma; Z91.81 History of falling; E78.5 Hyperlipidemia, unspecified; N40.0 Benign prostatic hyperplasia without lower urinary tract symptoms; G89.4 Chronic pain syndrome; I25.10 Atherosclerotic heart disease of native coronary artery without angina pectoris; Z82.49 Family history of ischemic heart disease and other diseases of the circulatory system; I48.0 Paroxysmal atrial fibrillation; I11.9 Hypertensive heart disease without heart failure; B95.8 Unspecified staphylococcus as the cause of diseases classified elsewhere; Z79.4 Long term (current) use of insulin; Z88.8 Allergy status to other drugs, medicaments and biological substances; E66.9 Obesity, unspecified; Z68.33 Body mass index [BMI] 33.0-33.9, adult
CPT/HCPCS: 36415; 51700; 70450; 71045; 72125; 80053; 80061; 81001; 82533; 82550; 82553; 82948; 83036; 83605; 83735; 84443; 84484; 85025; 87040; 87086; 87186; 93005; 93925; 96374; 96376; 99285; J0696; J1650; J2270; J7042; J7050; J7070; J7799

== ENCOUNTER 2019-01-09 19:45 | Emergency (ER) | payer MEDICARE ==
[~2019-01-09] VITALS: Ht 170.2 cm; Wt 95.7 kg
[~2019-01-09 19:45] MED LIST changes: +ATORVASTATIN CA20 MG PO; +DOCUSATE SODIU100 MG PO; +FINASTERIDE5 MG PO; +GABAPENTIN400 MG PO; +MORPHINE SULFAT30 M2 PO; +NORCO 10-325 T1 EACH PO; +RAMIPRIL5 MG PO; +TAMSULOSIN HCL0.4 MG PO; +TETRACYCLINE H500 MG PO
--- OUTSIDE RECORDS SUMMARY | 2019-01-09 19:47 | XMS REPORT | Clinical Summary ---
Author Author [facility] Organization [facility] Address Unknown Phone Unavailable Care Team Providers Care Financial Institution President Name Role Phone Jeremy Olivo MD PCP [...] by 0 mg tablet mouth daily. 8 02/07/2018 Discontinued traMADol (ULTRAM) 50 mg Take 1 tablet 60 tablet 0 tablet (50 mg total) 8 by mouth every 4 (four) hours as needed for moderate pain. 01/08/2018 Discontinued piroxicam (FELDENE) 20 MG TAKE [...] (three) times a day for 11 days. 01/08/2018 Discontinued bisacodyl (DULCOLAX) 5 mg [...] Encounters Care Team Description Date Type Specialty Ventura Price DO Spinal stenosis, lumbar region, with neurogenic claudication (Primary Dx) 12/03/2018 Transcribe Access Orders Darnell Kern MD 02/11/2018 Refill Orthopedic Surgery Karl Jimenez MD Asbury, James F., MD Pain of left hip joint (Primary Dx); Unable to walk 02/07/2018 [facility] General Internal Medicine - Encounter 02/13/2018 Jacqui Sorenson MD NPH (normal pressure hydrocephalus) (Primary Dx); Lumbar radiculopathy 01/16/2018 Office Visit Neurosurgery Saran Grimes MD Lumbar spondylosis (Primary Dx) 12/31/2017 [facility] Internal Medicine - Encounter 01/08/2018 after 01/08/2018 Family History Medical History Relation Name Comments [...] Body Mass Index 28.27 Plan of Treatment Care Team Description Date Type Specialty Jorden Luke MD [address] [facility] [address] [place] [address] 01/30/2019 Office Visit Neurology Health Maintenance Due Date Last Done Comments COLONOSCOPY SCREENING 1998 SHINGLES VACCINES (#1) 1998 65+ PNEUMOCOCCAL VACCINE 2013 06/24/2014 (2 of 2 - PPSV23) INFLUENZA VACCINE 01/16/2019 03/24/2015 Implants Device Identifier Shelf Expiration Date Model / Serial / Lot Implanted Type Area Manufactur er Clips Procedures Comments Procedure Name Priority Date/Time Associated Diagnosis MRI LUMBAR SPINE WO Routine 12/06/2018 Spinal stenosis, lumbar CONTRAST 10:34 AM CDT region, with neurogenic claudication POC GLUCOSE Routine 02/13/2018 12:17 PM CDT [...] MMODE SPECTRAL 12:21 PM CDT COLOR DOPPLER ([id number]) POC GLUCOSE Routine 02/09/2018 10:34 AM CDT [...] Routine 01/08/2018 W/AUTO DIFF 5:21 AM CDT after 01/08/2018 Results * MRI Lumbar Spine Wo Contrast (12/06/2018 10:34 AM CDT) Specimen Narrative Performed At [facility] EXAMINATION: MRI LUMBAR SPINE WO CONTRAST CLINICAL HISTORY: M48.062 Spinal stenosislumbar region with neurogenic claudication, SPINAL STENOSIS LUMBAR Technique: Routine unenhanced MRI of the lumbar spine. Comparison: December 21, 2017 Findings: For the purposes of this dictation, the last well-defined interspace is called L5-S1. There is artifact from posterior spinal fusion hardware with bilateral pedicle screws at L3 and L4 with vertical rods. Posterior Shanks rods extending from L3 to S1 level. There is loss of the normal lumbar lordosis and mild anterolisthesis of L2 on L3. The lumbar vertebral body heights are maintained. There is disc space narrowing posteriorly at L5-S1 with partial fusion. There is disc desiccation at L2-L3 and disc space narrowing at L4-L5. L1-2: No significant spinal canal stenosis or neural foraminal narrowing. L2-3: No significant spinal canal stenosis or neural foraminal narrowing. Laminectomy. L3-4: No significant canal stenosis. Possible mild right neural foraminal narrowing. L4-5: No central spinal stenosis. No significant neural foraminal narrowing. Possible left subarticular zone disc protrusion with left subarticular zone stenosis. L5-S1: Artifact is obscures intraspinal contents. No definite neural foraminal narrowing. Normal appearance and position of the terminal spinal cord. Fatty atrophy of the erector spinae musculature. Impression: Redemonstration of postsurgical changes of the lumbar spine with associated artifact. No significant central lumbar spinal stenosis appreciated noting artifact obscures assessment at L5-S1 level. Suggestion of possible left L4-L5 subarticular zone disc protrusion. [id number] Procedure Note Hm Interface, Radiology Results Incoming - 12/06/2018 2:29 PM CDT EXAMINATION: MRI LUMBAR SPINE WO CONTRAST CLINICAL HISTORY: M48.062 Spinal stenosis lumbar region with neurogenic claudication, SPINAL STENOSIS LUMBAR Technique: Routine unenhanced MRI of the lumbar spine. Comparison: December 21, 2017 Findings: For the purposes of this dictation, the last well-defined interspace is called L5-S1. There is artifact from posterior spinal fusion hardware with bilateral pedicle screws at L3 and L4 with vertical rods. Posterior Shanks rods extending from L3 to S1 level. There is loss of the normal lumbar lordosis and mild anterolisthesis of L2 on L3. The lumbar vertebral body heights are maintained. There is disc space narrowing posteriorly at L5-S1 with partial fusion. There is disc desiccation at L2-L3 and disc space narrowing at L4-L5. L1-2: No significant spinal canal stenosis or neural foraminal narrowing. L2-3: No significant spinal canal stenosis or neural foraminal narrowing. Laminectomy. L3-4: No significant canal stenosis. Possible mild right neural foraminal narrowing. L4-5: No central spinal stenosis. No significant neural foraminal narrowing. Possible left subarticular zone disc protrusion with left subarticular zone stenosis. L5-S1: Artifact is obscures intraspinal contents. No definite neural foraminal narrowing. Normal appearance and position of the terminal spinal cord. Fatty atrophy of the erector spinae musculature. Impression: Redemonstration of postsurgical changes of the lumbar spine with associated artifact. No significant central lumbar spinal stenosis appreciated noting artifact obscures assessment at L5-S1 level. Suggestion of possible left L4-L5 subarticular zone disc protrusion. [id number] Performing Organization Address City/[facility] Phone Number [facility] [address] [place] [address] * POC glucose (02/13/2018 12:17 PM CDT) Only the most recent of 25 results within the time period is included. POC glucose 175 (H) 65 - 99 mg/dL [facility] Comment: OF PATHOLOGY [facility] Notified RN AND GENOMIC Meter ID: [id number] MEDICINE [employer] Trimmer: Roger Lopez Specimen Performing Organization Address City/State/Zipcode Phone Number [facility] OF [address] [place] [phone] PATHOLOGY AND GENOMIC MEDICINE * XR Chest 1 Vw Portable (02/10/2018 1:30 PM CDT) Specimen Narrative Performed At EXAMINATION:XR CHEST 1 VW PORTABLE [facility] CLINICAL HISTORY:cough COMPARISON: February 07, 2018 . IMPRESSION: 1.Heart size and mediastinum are prominent. 2.The right hemidiaphragm is slightly elevated. Lungs are clear. 3.No pneumothorax. 4.Evaluation is stable relative to prior. [id number] Procedure Note [facility], Radiology Results Incoming - 02/10/2018 1:43 PM CDT EXAMINATION: XR CHEST 1 VW PORTABLE CLINICAL HISTORY: cough COMPARISON: February 07, 2018 . IMPRESSION: 1. Heart size and mediastinum are prominent. 2. The right hemidiaphragm is slightly elevated. Lungs are clear. 3. No pneumothorax. 4. Evaluation is stable relative to prior. [id number] Performing Organization Address City/[facility]/Zipcode Phone Number [facility] [address] [place] [address] * CBC hemogram (02/10/2018 5:30 AM CDT) [facility] WBC 10.64 4.50 - 11.00 k/uL [facility] OF PATHOLOGY AND GENOMIC MEDICINE RBC 4.13 (L) 4.40 - 6.00 m/uL [facility] OF PATHOLOGY AND GENOMIC MEDICINE HGB 12.0 (L) 14.0 - 18.0 g/dL [facility] OF PATHOLOGY AND GENOMIC MEDICINE HCT 37.4 (L) 41.0 - 51.0 % [facility] OF PATHOLOGY AND GENOMIC MEDICINE MCV 90.6 82.0 - 100.0 fL [facility] OF PATHOLOGY AND GENOMIC MEDICINE MCH 29.1 27.0 - 34.0 pg [facility] OF PATHOLOGY AND GENOMIC MEDICINE MCHC 32.1 31.0 - 37.0 g/dL [facility] OF PATHOLOGY AND GENOMIC MEDICINE RDW - SD 44.1 37.0 - 55.0 fL [facility] OF PATHOLOGY AND GENOMIC MEDICINE MPV 9.7 8.8 - 13.2 fL [facility] OF PATHOLOGY AND GENOMIC MEDICINE Platelet count 251 150 - 400 k/uL [facility] OF PATHOLOGY AND GENOMIC MEDICINE Nucleated RBC 0.00 /100 WBC [facility] OF PATHOLOGY AND GENOMIC MEDICINE Specimen Blood Performing Organization Address City/[facility] Phone Number [facility] OF [address] [place] [address] PATHOLOGY AND GENOMIC MEDICINE * Estimated GFR (02/10/2018 4:00 AM CDT) Only the most recent of 4 results within the time period is included. [facility] GFR Non Af Amer >90 mL/min/1.73 m2 [facility] OF PATHOLOGY AND GENOMIC MEDICINE GFR Af Amer >90 mL/min/1.73 m2 [facility] Comment: OF PATHOLOGY Chronic kidney disease: <60 AND GENOMIC mL/min/1.73m2 MEDICINE Kidney failure: <15 mL/min/1.73m2 The estimated GFR [...] Americans. Specimen Plasma specimen Performing Organization Address City/[facility]/[place] [address] PATHOLOGY [facility] * Basic metabolic panel (02/10/2018 4:00 AM CDT) Only the most recent of 3 results within the time period is included. Sodium 138 135 - 148 mEq/L [facility] OF PATHOLOGY AND GENOMIC MEDICINE Potassium 4.0 3.5 - 5.0 mEq/L [facility] OF PATHOLOGY AND GENOMIC MEDICINE Chloride 99 98 - 112 mEq/L [facility] OF PATHOLOGY AND GENOMIC MEDICINE CO2 26 24 - 31 mEq/L [facility] OF PATHOLOGY AND GENOMIC MEDICINE Anion gap 13@ANIO 7 - 15 mEq/L [facility] OF PATHOLOGY AND GENOMIC MEDICINE BUN 14 8 - 23 mg/dL [facility] OF PATHOLOGY AND GENOMIC MEDICINE Creatinine 0.7 0.7 - 1.2 mg/dL [facility] OF PATHOLOGY AND GENOMIC MEDICINE Glucose 71 65 - 99 mg/dL [facility] OF PATHOLOGY AND GENOMIC MEDICINE Calcium 9.3 8.8 - 10.2 mg/dL [facility] OF PATHOLOGY AND GENOMIC MEDICINE Specimen Plasma specimen Performing Organization Address City/[facility] [place] [address] PATHOLOGY AND [employer] MEDICINE * Echocardiogram complete w contrast and 3D if needed (02/09/2018 12:21 PM CDT) Specimen Narrative Performed At [facility] Echocardiography Report [address] [place] [address] Pat.Name:VU ALVAREZ Obdulia Pat.ID:[id number] .Date: 02/09/2018 Refer.MD:RUDI KAHN MD Exam Time: 11:06:00 AM Study Type:Routine Echo Height:70inWeight:197lb BSA: 2.08 m2 DOBAge:1950,67Y Sex: MALEBP:146/78 HR:69 bpm Sonogrphr: AUDREY Herrera Pat. Stat.:Inpatient Room:[facility] Study Status:Final Echo Event ID:[id number] Order ID:[id number] Reason for Study:Atrial fibrillation History / Clinical:Atrial [...] RAPof 5 mmHg. MEASUREMENTS: 2D Parasternal Long Roxana LVOT 2.3 cmLA Ds2.8 cm LVIDd4.4 cmIndex2.1 cm/m Ao Rtd 3.7 cm Index1.8 cm/m LVIDs2.9 cm LV Qsyl982.8 g(122-174) LV%fs 33.8 % LVM Index 83.6 g/m2 IVSd 1.3 cmRWT0.4 LVPWd0.9 cm LA Sng Plane LA Area 14 cm2(8.8-23.4) LA Vol32.9 ml Index15.8 ml/m LA LngAx 4.5 cm Signed 02/09/2018 07:49 PM Lyndsey Sy M.D. Procedure Note Interface, Radiology Results In - 02/09/2018 7:50 PM CDT Echocardiography Report [address] [place] [address] Pat.Name: VU ALVAREZ Pat.ID: [id number] St.Date: 02/09/2018 Refer.MD: RUDI KAHN MD Exam Time: 11:06:00 AM Study Type:Routine Echo Height: 70in Weight: 197lb BSA: 2.08 m2 Age: 2 1950,67Y Sex: MALE BP: 146/78 HR: 69 bpm Sonogrphr: AUDREY Herrera Pat. Stat.:Inpatient Room: [facility] Study Status:Final Echo Event ID:[id number] Order ID: [id number] Reason for Study:Atrial fibrillation History / Clinical:Atrial [...] of 5 mmHg. MEASUREMENTS: 2D Parasternal Long Roxana LVOT 2.3 cm LA Ds 2.8 cm [...] PM Lyndsey Sy M.D. Performing Organization Address City/State/[facility] Phone Number [facility] [address] [place] [address] * Cv ecg exercise stress (no imaging) (02/09/2018 9:29 AM CDT) Resting HR 67 [facility] Resting BP 164 [facility] Peak MET 1.0 [facility] Achieved Protocol Name HAYDEN [facility] Time in 00:01:00 [facility] Exercise Phase Max Systolic BP 164 [facility] Max Diastolic 79 [facility] BP Max Heart Rate 83 [facility] Max Predicted 151 [facility] Heart Rate Target HR (220 - Age)*100% [facility] Formula Test Indication A-FIB [facility] Stress Test -Waveform interpreted in [facility] Impression report associated with image study. No interpretation is provided as part of this Stress ECG report.- Target HR 128.35 bpm [facility] Specimen Performing Organization Address City/State/Zipcode Phone Number [facility] [address] [place] [address] * Nm myocardial perfusion (02/09/2018 9:29 AM CDT) Specimen Narrative Performed At [facility] Nuclear Cardiology and Cardiac CT [address] [place] [address] Myocardial Perfusion Imaging Report Stress ECG tracings are available in [employer], [employer] and [employer] All ECG interpretations are included in this report Pat.Name:Cortez Alvarez.ID:[id number] .Date: 02/09/2018 Refer.MD:RUDI KAHN MD Exam Time: 8:51:00 AM Study Type:Myocardial Perfusion Imaging Height:62inBSA: 1.9 m2 DOBAge:1950,67YSex: MALE BP:164/79HR: 67 bpm HCT: 38.1 % Nuclear Tech:TORI Whittington, TORI Walsh Pat. Stat.:Inpatient Room:[facility] Nuclear Event ID:[id number] Order ID:[id number] Reason for Study:Atrial fibrillation*, Pre-op evaluation non-coronary [...] PM CDT Nuclear Cardiology and Cardiac CT [address] [place] [address] Myocardial Perfusion Imaging Report Stress ECG tracings are available in [employer], [employer] and [employer] All ECG interpretations are included in this report Pat.Name: Vu Alvarez Pat.ID: [id number] .Date: 02/09/2018 Refer.MD: RUDI KAHN MD Exam Time: 8:51:00 AM Study Type:Myocardial Perfusion Imaging Height: 62in BSA: 1.9 m2 Age: 2 1950,67Y Sex: MALE BP: 164/79 HR: 67 bpm HCT: 38.1 % Nuclear Tech:Samuel Brantley [facility], Steff Mccormack [facility] Pat. Stat.:Inpatient Room: A5 Nuclear Event ID:[id number] Order ID: [id number] Reason for Study:Atrial fibrillation*, Pre-op evaluation non-coronary [...] Organization Address City/State/Zipcode Phone Number [facility] [address] [place] [address] * CBC with platelet and differential (02/08/2018 5:05 AM CDT) Only the most recent of 3 results within the time period is included. WBC 12.45 (H) 4.50 - 11.00 k/uL [facility] OF PATHOLOGY AND GENOMIC MEDICINE RBC 4.35 (L) 4.40 - 6.00 m/uL [facility] OF PATHOLOGY AND GENOMIC MEDICINE HGB 12.5 (L) 14.0 - 18.0 g/dL [facility] OF PATHOLOGY AND GENOMIC MEDICINE HCT 38.1 (L) 41.0 - 51.0 % [facility] OF PATHOLOGY AND GENOMIC MEDICINE MCV 87.6 82.0 - 100.0 fL [facility] OF PATHOLOGY AND GENOMIC MEDICINE MCH 28.7 27.0 - 34.0 pg [facility] OF PATHOLOGY AND GENOMIC MEDICINE MCHC 32.8 31.0 - 37.0 g/dL [facility] OF PATHOLOGY AND GENOMIC MEDICINE RDW - SD 43.1 37.0 - 55.0 fL [facility] OF PATHOLOGY AND GENOMIC MEDICINE MPV 9.4 8.8 - 13.2 fL [facility] OF PATHOLOGY AND GENOMIC MEDICINE Platelet count 256 150 - 400 k/uL [facility] OF PATHOLOGY AND GENOMIC MEDICINE Nucleated RBC 0.00 /100 WBC [facility] OF PATHOLOGY AND GENOMIC MEDICINE Neutrophils 62.2 39.0 - 69.0 % [facility] OF PATHOLOGY AND GENOMIC MEDICINE Lymphocytes 23.2 (L) 25.0 - 45.0 % [facility] OF PATHOLOGY AND GENOMIC MEDICINE Monocytes 12.2 (H) 0.0 - 10.0 % [facility] OF PATHOLOGY AND GENOMIC MEDICINE Eosinophils 1.1 0.0 - 5.0 % [facility] OF PATHOLOGY AND GENOMIC MEDICINE Basophils 0.7 0.0 - 1.0 % [facility] OF PATHOLOGY AND GENOMIC MEDICINE Immature 0.6Comment: "Immature 0.0 - 1.0 % [facility] granulocytes granulocytes" (promyelocytes, OF PATHOLOGY myelocytes, metamyelocytes) AND GENOMIC MEDICINE Specimen Blood Performing Organization Address City/[facility] Phone Number [facility] OF [address] [place] [address] PATHOLOGY AND GENOMIC MEDICINE * ECG 12 lead (02/07/2018 10:21 PM CDT) Ventricular 84 [facility] rate Atrial rate [address] interval 214 [facility] QRSD interval 94 [facility] QT interval 370 [facility] QTC interval 437 [facility] P axis 1 37 [facility] QRS axis 1 4 [facility] T wave axis 83 [facility] EKG impression Sinus rhythm with 1st degree [facility] AV block-Nonspecific T wave abnormality-Abnormal ECG-In automated comparison with ECG of 29-DEC-2017 15:42,-Nonspecific T wave abnormality, worse in Anterior leads- Specimen Performing Organization Address City/[facility] Phone Number [facility] [address] [place] [address] * XR Chest 1 Vw (02/07/2018 6:35 PM CDT) Specimen Narrative Performed At EXAMINATION:XR CHEST 1 VW [facility] CLINICAL HISTORY: fall at 31m this morningr o trauma COMPARISON:None IMPRESSION: No radiographic evidence for acute cardiopulmonary process. Cardiomediastinal silhouette is at the upper limits of normal in size. No focal or confluent airspace consolidation is seen on this single AP plane to suggest acute pneumonia. No sizable pleural effusion. No pneumothorax identified. No acute osseous abnormalities are visualized. [id number] Procedure Note Hm Interface, Radiology Results Incoming [...] identified. No acute osseous abnormalities are visualized. [id number] Performing Organization Address City/State/Zipcode Phone Number [facility] [address] [place] [address] * CT Pelvis Wo Contrast (02/07/2018 4:22 PM CDT) Specimen Narrative Performed At EXAMINATION:CT PELVIS WO CONTRAST [...] OA. Thickening and stranding involving the left systems operator externus and interosseous muscles indicative of [...] and intramuscular hemorrhage/traumatic strain of the left systems operator externus and internus. Distended urinary bladder consider [place]. Constipation and/or fecal impaction. Disimpaction recommended to avoid stercoral colitis. [id number] Procedure Note [facility], Radiology Results Incoming - 02/07/2018 5:12 PM [...] OA. Thickening and stranding involving the left systems operator externus and interosseous muscles indicative of [...] and intramuscular hemorrhage/traumatic strain of the left systems operator externus and internus. Distended urinary bladder consider [place]. Constipation and/or fecal impaction. Disimpaction recommended to avoid stercoral colitis. [id number] Performing Organization Address [facility] Hospital[facility]t Phone Number [facility] [address] [place] [address] * Partial thromboplastin time, activated (02/07/2018 1:56 PM CDT) PTT 30.2 23.0 - 36.0 sec [facility] Comment: OF PATHOLOGY PTT therapeutic range for AND GENOMIC unfractionated heparin is MEDICINE 61.0-112.0 seconds which corresponds to Anti-Xa 0.3-0.7 U/ml. Specimen Blood Performing Organization Address [facility] Phone Number [facility] OF [address] [place] [address] PATHOLOGY AND GENOMIC MEDICINE * Prothrombin time with INR (02/07/2018 1:56 PM CDT) Prothrombin 13.9 12.0 - 15.0 sec [facility] time OF PATHOLOGY AND GENOMIC MEDICINE INR 1.1 [facility] Comment: OF PATHOLOGY The International Normalized AND GENOMIC Ratio (INR) is a therapeutic MEDICINE monitoring tool for patients who are stable on oral anticoagulant therapy. An INR of 2.0-3.0 is suggested for deep vein thrombosis/pulmonary embolism. Specimen Blood Performing Organization Address [facility]/Zipcode Phone Number [facility] [address] [address] PATHOLOGY AND GENOMIC MEDICINE * Comprehensive metabolic panel (02/07/2018 1:56 PM CDT) Sodium 137 135 - 148 mEq/L [facility] OF PATHOLOGY AND GENOMIC MEDICINE Potassium 4.4 3.5 - 5.0 mEq/L [facility] OF PATHOLOGY AND GENOMIC MEDICINE Chloride 97 (L) 98 - 112 mEq/L [facility] OF PATHOLOGY AND GENOMIC MEDICINE CO2 23 (L) 24 - 31 mEq/L [facility] OF PATHOLOGY AND GENOMIC MEDICINE Anion gap 17@ANIO (H) 7 - 15 mEq/L [facility] OF PATHOLOGY AND GENOMIC MEDICINE BUN 15 8 - 23 mg/dL [facility] OF PATHOLOGY AND GENOMIC MEDICINE Creatinine 0.7 0.7 - 1.2 mg/dL [facility] OF PATHOLOGY AND GENOMIC MEDICINE Glucose 189 (H) 65 - 99 mg/dL [facility] OF PATHOLOGY AND GENOMIC MEDICINE Calcium 9.4 8.8 - 10.2 mg/dL [facility] OF PATHOLOGY AND GENOMIC MEDICINE Protein 7.2 6.3 - 8.3 g/dL [facility] Comment: OF PATHOLOGY AND GENOMIC 4.6-7.0 g/dL MEDICINE 1 week 4.4-7.6 g/dL 7 months-1year 5.1-7.3 g/dL 1-2 years5.6-7 .5 g/dL >3 years6.0-8 .0 g/dL 18-150 6.3-8.3 g/dL Albumin 3.5 3.5 - 5.0 g/dL [facility] OF PATHOLOGY AND GENOMIC MEDICINE A/G ratio 0.9 0.7 - 3.8 [facility] OF PATHOLOGY AND GENOMIC MEDICINE Alkaline 102 40 - 129 U/L [facility] phosphatase OF PATHOLOGY AND GENOMIC MEDICINE AST 23 10 - 50 U/L [facility] OF PATHOLOGY AND GENOMIC MEDICINE ALT 22 5 - 50 U/L [facility] OF PATHOLOGY AND GENOMIC MEDICINE Total bilirubin 0.3 0.0 - 1.2 mg/dL [facility] OF PATHOLOGY AND GENOMIC MEDICINE Specimen Plasma specimen Performing Organization Address [facility]/Zipcode Phone Number [address] [address] PATHOLOGY AND GENOMIC MEDICINE * XR Pelvis 1 Or 2 Vw (02/07/2018 1:45 PM CDT) Specimen Narrative Performed At EXAMINATION: XR PELVIS 1 OR 2 VW [facility] INDICATION: fall at 31m this morningr o trauma COMPARISON: None IMPRESSION: A single frontal view of the pelvis was obtained. Limited evaluation of the sacrum and pubic body secondary to large amount of stool in the rectosigmoid. No visible acute fracture. [id number] Procedure Note Interface, Radiology Results Incoming - 02/07/2018 2:19 PM CDT EXAMINATION: XR PELVIS 1 OR 2 VW INDICATION: fall at 31m this morning r o trauma COMPARISON: None IMPRESSION: A single frontal view of the pelvis was obtained. Limited evaluation of the sacrum and pubic body secondary to large amount of stool in the rectosigmoid. No visible acute fracture. [id number] Performing Organization Address City/[facility] Phone Number [facility] [address] [place] [address] * XR Hip 2-3 View Left (02/07/2018 1:45 PM CDT) Specimen Narrative Performed At EXAMINATION:XR HIP 2-3 VIEWS LEFT [facility] CLINICAL HISTORY:fall at 31m this morningr o trauma COMPARISON:None. IMPRESSION: 1.The left hip is in normal anatomic alignment. There is no evidence of fracture or dislocation. 2.No radiopaque foreign bodies are seen within the soft tissues. [id number] Procedure Note Interface, Radiology Results Incoming - 02/07/2018 1:53 PM CDT EXAMINATION: XR HIP 2-3 VIEWS LEFT CLINICAL HISTORY: fall at 31m this morning r o trauma COMPARISON: None. IMPRESSION: 1. The left hip is in normal anatomic alignment. There is no evidence of fracture or dislocation. 2. No radiopaque foreign bodies are seen within the soft tissues. [id number] Performing Organization Address City/State/Zipcode Phone Number [facility] [address] [place] [address] after 01/08/2018 Insurance Type Payer Benefit Subscriber ID Effective Phone Address Plan / Dates Group Medicare MEDICARE MEDICARE xxxxxxxxxxx 2013-P [place], PART A AND resent [place] B Commercial AARP AARP xxxxxxxxxx 2017-P SUPPLEMENT resent Advance Directives Patient has advance care planning documents, and code status on file. For more i nformation, please contact: Gerardo Buchanan [address] [place] [address] Date Inactivated Comments Code Status Date Activated 02/13/2018 8:43 PM Full Code 02/07/2018 7:34 PM Code Status decision reached by: Patient 02/07/2018 7:34 PM Full Code 02/07/2018 7:24 PM Code Status decision reached by: Patient 01/08/2018 9:35 PM Full Code 12/31/2017 6:56 PM Code Status decision reached by: Patient
--- OUTSIDE RECORDS SUMMARY | 2019-01-09 19:48 | XMS REPORT | Continuity of Care Document ---
Author Author [employer] Organization [employer] Address Unknown Phone Unavailable Care Team Providers Care Case Advocate Name Role Phone [employer] Unavailable Unavailable Problems Problem Status Onset Date Classification Date Reported Comments Source Sacrococcygeal disorders, not elsewhere classified 04/19/2018 10/20/2018 [facility] M48.061, M43.16 Active 03/31/2018 [employer] M48.061, M43.16 BACK PAIN Active 03/31/2018 [facility] M48.061, M43.16 LOW BACK PAIN Active 01/29/2018 [employer] STENOSIS Active 10/31/2017 [employer] M43.16, M48.061 Active 10/16/2017 [employer] MRSA culture positive(Confirmed)2 Active 06/18/2007 Problem 10/20/2018 from cellulitis in left forearm/elbow [facility] Diabetes mellitus Active Problem 02/03/2014 [facility] Fatigue Active Problem 02/03/2014 [facility] Leg pain, bilateral Active Diagnosis 04/05/2013 [facility] Leg pain Active Problem 02/03/2014 [facility] Hyperlipidemia Active Problem 02/03/2014 [facility] HTN Active Problem 02/03/2014 [facility] Cough Active Diagnosis 04/05/2013 [facility] Obesity Active Diagnosis 07/10/2013 [facility] Bronchitis Active Diagnosis 07/10/2013 [facility] Positive CARLITO Active Diagnosis 07/10/2013 [facility] Rib pain on left side Active Diagnosis 10/03/2013 [facility] Encounter for medication counseling Active Diagnosis 06/25/2013 [facility] Right ankle pain Active Diagnosis 06/25/2013 [facility] Depression Active Diagnosis 06/25/2013 [facility] Tachycardia Active Diagnosis 06/25/2013 [facility] Asthma1 Active Problem 10/20/2018 last attack 3 yrs ago. [facility] Depression Active Problem 10/20/2018 [facility] Acid reflux Active Problem 10/20/2018 [facility] HTN - Hypertension Active Problem 10/20/2018 [facility] Obesity Active Problem 10/20/2018 [facility] Paroxysmal atrial fibrillation Active Problem 10/20/2018 [facility] DM , type 2(Confirmed) Active Problem 10/20/2018 [facility] Hepatitis C Resolved Problem 10/20/2018 [facility] DM - Diabetes mellitus Active Problem 10/27/2017 [facility] Spinal stenosis, lumbosacral region 10/20/2018 [facility] Spondylolisthesis, lumbar region 10/20/2018 [facility] Arthrodesis status 10/20/2018 [facility] SPONDYLOLISTHESIS, LUMBAR REGION Active [facility] SPINAL STENOSIS, LUMBAR REGION WITHOUT N Active [facility] Medications Medication Details Route Status Patient Instructions Ordering Provider Order Date Source Insulin Regular, Human (Humulin R) 100 Unit/1 Ml Vial Before Meals Active Lesley 07/27/2018 [facility] Nph, Human Insulin Isophane (Novolin N) 100 Unit/1 Ml Vial Twice A Day Active Lesley 07/27/2018 [facility] Tetracycline Hcl 500 Mg Capsule Twice A Day Active Lesley 07/27/2018 [facility] Insulin Regular, Human (Humulin R) 100 Unit/1 Ml Vial, 25 Unit Sub-Q Before Meals Active 07/27/2018 [facility] Nph, Human Insulin Isophane (Novolin N) 100 Unit/1 Ml Vial, 25 Unit Sub-Q Twice A Day Active 07/27/2018 [facility] Duloxetine Hcl (Cymbalta) 30 Mg Capsule.dr, 60 Mg Oral Daily Active 07/25/2018 [facility] Losartan Potassium 25 Mg Tablet, 25 Mg Peg Tube Daily Active 07/25/2018 [facility] tizanidine 4 MG Oral Capsule [Zanaflex] 4 mg=1 cap, PO, TID, # 40 cap, 0 Refill(s) Active 11/21/2017 [facility] Acetaminophen 325 MG / Hydrocodone Bitartrate 10 MG Oral Tablet [Susan 10/325] 1-2 tab, PO, Q4-6H, PRN Pain, [...] Longer Active 11/20/2017 [facility] sennosides, HALFWAY 8.6 mg, 1 tab, Route: PO, Drug [...] Wasted: ___ mg No Longer Active 11/19/2017 [facility] normal saline 0.9% IV 1,000 mL 1,000 mL, Rate: 75 ml/hr, Infuse over: 13.3 hr, Route: IV, Dosing Weight 105.909 kg, Total Volume: 1,000, Start date: 11/19/17 14:32:00 CDT, Duration: 30 day, Stop date: 12/19/17 14:31:00 CDT, 2.31, m2 No Longer Active 11/19/2017 [facility] Novolin R 33 unit, [...] mL, Route: IV, Initial Loading Dose: 0.4mg, JOINER APPRENTICE Dose: 0.3 mg, JOINER APPRENTICE Lockout: 15 minutes, Continuous Basal Rate: 0 mg, 4 Hour Limit (In MG): 7, Drug Form: INJ, Continuous, Start date: 11/19/17 11 :20:00 CDT, Duration: 30 day, Stop date: 12/19/17...Notes: (Same as: Dilaudid) conc=0.5 mg/ml Hydromorphone JOINER APPRENTICE Dose: ;Delay: ;Basal: No Longer Active 11/19/2017 [facility] Naloxone 0.04 mg, 0.1 mL, Route: IVP, Drug form: INJ, Q2MIN, Dosing Weight 105.909, kg, PRN Narcotic Reversal, Start date: 11/19/17 11:20:00 CDT, Duration: 30 day, Stop date: 12/19/17 11:19:00 CDTNotes: Same as Narcan No Longer Active 11/19/2017 [facility] D5W 1/2NS + KCL 20mEq/L 1000ml (Premix) 1,000 mL 1,000 mL, Rate: 75 ml/hr, Infuse over: 13.3 hr, Route: IV, Dosing Weight 105.909 kg, Total Volume: 1,000, Start date: 11/19/17 11:20:00 CDT, Duration: 30 day, Stop date: 12/19/17 11:19:00 CDT, 2.31, v8Inkmh: PREMIX IV - Do Not Alter WASTE: [...] Stop date: 12/19/17 11:19:00 CDTNotes: (Same As: Aixa) No Longer Active 11/19/2017 [facility] Acetaminophen 325 MG / Hydrocodone Bitartrate 10 MG Oral Tablet 2 tab, Route: PO, Drug Form: TAB, Dosing Weight 105.909, kg, Q4H, PRN Pain Score 4-6, Start date: 11/19/17 11:20:00 CDT, Duration: 30 day, Stop date: 12/19/17 11:19:00 CDTNotes: Do not exceed 4gm/day of acetaminophen. (Same as: Susan 325/10) No Longer Active 11/19/2017 [facility] Diphenhydramine 25 mg, 1 cap, Route: PO, Drug form: CAP, Bedtime, Dosing Weight 105.909, kg, PRN Insomnia, Start date: 11/19/17 11:20:00 CDT, Duration: 30 day, Stop date: 12/19/17 11:19:00 CDTNotes: (Same as: Ted ya) No Longer Active 11/19/2017 [facility] [...] 11:19:00 CDTNotes: (aluminum hydroxide-mag nesium hyd- simethicone [phone]/5ml 30 ml ud GEO) No Longer Active [...] " WASTE: F/P - Black; E - Selligy Trash Bin Stable for 28 days at [...] Orally every 6 hrs prn rib pain Chandan 09/23/2013 [facility] Ipratropium [place] as directed Inhalation Active 0.02 % Inhalation every 4 hours [facility] 06/26/2013 [facility] Norel CS 1 teaspoon Orally Active 10-4-12.5 MG/5ML Orally three times a day (tid) [facility] 06/26/2013 [facility] ProAir HFA 2 puffs as needed Inhalation Active 108 (90 Base) MCG/ACT Inhalation every 4 -6 hrs [facility] 06/23/2013 [facility] Zithromax Z-Landry 2 tablets on the first day, then 1 tablet daily for 4 days Orally Active 250 MG Orally Once a day [facility] 06/23/2013 [facility] Bystolic 1 tablet Orally Active 10 mg Orally Once a day [facility] 06/17/2013 [facility] Cymbalta 1 capsule Orally Active 60 MG Orally Once a day (patient needs to be seen before next refill) [facility] 05/09/2013 [facility] Cymbalta 1 capsule Orally No Longer Active 30 mg Orally Once a day [place] 02/13/2013 [facility] Tramadol HCl 1 tablet as needed Orally Active 50 mg Orally every 6 hrs [place] 02/13/2013 [facility] Cymbalta 1 capsule Orally Active 60 MG Orally Once a day [place] 02/13/2013 [facility] Amlodipine Besylate 1 tablet Orally Active 10 mg Orally Once a day [facility] 02/13/2013 [facility] Novolin N 23 units Subcutaneous Active 100 UNIT/ML Subcutaneous AM and PM [facility] Metformin HCl 2 tablet Orally Active 500 mg Orally Twice a day [place] Simvastatin 1 tablet Orally No Longer Active 40 mg Orally Once a day [facility] Novolin R 23 units Injection Active 100 UNIT/ML Injection TID with meals [facility] Lisinopril 1 tablet Orally No Longer Active 10 mg Orally Once a day [facility] Metformin HCl TAKE TWO TABLETS BY MOUTH TWICE DAILY NA Active 500 [facility] Amlodipine Besylate TAKE ONE TABLET BY MOUTH EVERY DAY NA Active 10MG [facility] Aspirin 1 tablet Orally Active 325 MG Orally Once a day [facility] Amlodipine Besylate 10 Mg Tablet Daily Active [facility] Aspirin 81 Mg Tab.chew Daily Active [facility] Atorvastatin Calcium 20 Mg Tablet Bedtime Active [facility] Docusate Sodium 100 Mg Capsule Daily Active [facility] Finasteride 5 Mg Tablet Daily Active [facility] Flecainide Acetate 100 Mg Tablet Twice A Day Active [facility] Gabapentin 400 Mg Capsule Four Times Daily Active [facility] Hydrocodone Bit/Acetaminophen (Susan 10-325 Tablet) 1 Each Tablet Every 8 Hours as needed for Pain Active [facility] Metformin Hcl 500 Mg Tablet Twice A Day Active [facility] Morphine Sulfate (Morphine Sulfate Er) 30 Mg Tablet.er Every 12 Hours as needed for Pain Active [facility] Ramipril 5 Mg Capsule Daily Active [facility] Tamsulosin Hcl 0.4 Mg Cap.er.24h Daily Active [facility] Allergies, Adverse Reactions, Alerts Substance Category Reaction Severity Reaction type Status Date Reported Comments Source Carisoprodol Unknown Allergy to Substance Active 07/25/2018 [facility] Lincomycin Unknown Allergy to Substance Active 07/25/2018 [facility] Soma Assertion rash Drug allergy Active [facility] lincomycin Assertion rash Drug allergy Active [facility] Zofran<sup>1</sup> Assertion didn't work Propensity to adverse reactions to drug Active and Patient say that the Zofran made him Vomit [facility] Motrin Assertion rash Drug allergy Active [facility] oxyCODONE Assertion severe N/V Propensity to adverse reactions to drug Active [facility] Immunizations No Data Provided for This Section Results Order Name Results Value Reference Range Date Interpretation Comments Source Capillary blood glucose measurement by glucometer (mass/volume) 213 70 - 120 07/27/2018 [facility] Blood leukocytes automated count (number/volume) 11.30 4.8 - 10.8 07/26/2018 [facility] Blood erythrocytes automated count (number/volume) 4.58 4.3 - 5.7 07/26/2018 [facility] Blood hemoglobin measurement (moles/volume) 13.2 14.0 - 18.0 07/26/2018 [facility] Automated blood hematocrit (volume fraction) 40.7 38.2 - 49.6 07/26/2018 [facility] Automated erythrocyte mean corpuscular volume 88.9 81 - 99 07/26/2018 [facility] Automated erythrocyte mean corpuscular hemoglobin (mass per erythrocyte) 28.8 28 - 32 07/26/2018 [facility] Automated erythrocyte mean corpuscular hemoglobin concentration measurement (mass/volume) 32.4 31 - 35 07/26/2018 [facility] RDW BldCo-Rto 13.1 11.7 - 14.4 07/26/2018 [facility] Automated blood platelet count (count/volume) 352 140 - 360 07/26/2018 [facility] Automated blood segmented neutrophil count as percentage of total leukocytes 61.3 38.7 - 80.0 07/26/2018 [facility] Automated blood lymphocyte count as percentage ot total leukocytes 25.0 18.0 - 39.1 07/26/2018 [facility] Automated blood monocyte count as percentage of total leukocytes 9.2 4.4 - 11.3 07/26/2018 [facility] Automated blood eosinophil count as percentage of total leukocytes 2.5 0.0 - 6.0 07/26/2018 [facility] Automated blood basophil count as percentage of total leukocytes 1.0 0.0 - 1.0 07/26/2018 [facility] IM GRANULOCYTES % 1.0 0.0 - 1.0 07/26/2018 [facility] Automated blood neutrophil count 6.9 2.1 - 6.9 07/26/2018 [facility] Blood lymphocytes count (number/volume) 2.8 1.0 - 3.2 07/26/2018 [facility] Blood monocytes automated count (number/volume) 1.0 0.2 - 0.8 07/26/2018 [facility] Automated blood eosinophil count 0.3 0.0 - 0.4 07/26/2018 [facility] Automated blood basophil count (count/volume) 0.1 0.0 - 0.1 07/26/2018 [facility] Absolute Immature Granulocyte (auto 0.11 0 - 0.1 07/26/2018 [facility] Serum or plasma sodium measurement (moles/volume) 137 136 - 145 07/26/2018 [facility] Serum or plasma potassium measurement (moles/volume) 4.1 3.5 - 5.1 07/26/2018 [facility] Serum or plasma chloride measurement (moles/volume) 103 98 - 107 07/26/2018 [facility] Serum or plasma carbon dioxide, total measurement (moles/volume) 25 22 - 29 07/26/2018 [facility] Serum or plasma anion gap 13.1 8 - 16 07/26/2018 [facility] Serum or plasma urea nitrogen measurement (mass/volume) 14 7 - 26 07/26/2018 [facility] Serum or plasma creatinine measurement (mass/volume) 0.80 0.72 - 1.25 07/26/2018 [facility] Serum or plasma urea nitrogen/creatinine mass ratio 18 6 - 25 07/26/2018 [facility] Estimated glomerular filtration rate (GFR) determination > 60 60 07/26/2018 [facility] Glucose measurement 186 74 - 118 07/26/2018 [facility] Serum or plasma calcium measurement (mass/volume) 9.4 8.4 - 10.2 07/26/2018 [facility] Hemoglobin A1c Percent 6.8 4.0 - 7.0 07/26/2018 [facility] Serum or plasma magnesium measurement (mass/volume) 2.1 1.3 - 2.1 07/26/2018 [facility] Serum or plasma total bilirubin measurement (mass/volume) 0.2 0.2 - 1.2 07/26/2018 [facility] Aspartate Amino Transf (AST/SGOT) 21 5 - 34 07/26/2018 [facility] Serum or plasma alanine aminotransferase measurement (enzymatic activity/volume) 30 0 - 55 07/26/2018 [facility] Serum or plasma protein measurement (mass/volume) 7.2 6.5 - 8.1 07/26/2018 [facility] Serum or plasma albumin measurement (mass/volume) 3.1 3.5 - 5.0 07/26/2018 [facility] Plasma globulin measurement (mass/volume) 4.1 2.3 - 3.5 07/26/2018 [facility] Serum or plasma albumin/globulin mass ratio 0.8 0.8 - 2.0 07/26/2018 [facility] Serum or plasma alkaline phosphatase measurement (enzymatic activity/volume) 111 40 - 150 07/26/2018 [facility] Serum or plasma triglyceride measurement (mass/volume) 114 0 - 149 07/26/2018 [facility] Serum or plasma cholesterol measurement (mass/volume) 103 0 - 199 07/26/2018 [facility] Serum or plasma cholesterol in LDL measurement (mass/volume) 48 60 - 130 07/26/2018 [facility] Serum or plasma cholesterol in HDL measurement (mass/volume) 32 40 - 60 07/26/2018 [facility] Serum or plasma total cholesterol/cholesterol in HDL mass ratio 3.2 3.9 - 4.7 07/26/2018 [facility] Serum or plasma thyrotropin measurement by detection limit <=0.005 miu/l (units/volume) 0.794 0.350 - 4.940 07/26/2018 [facility] Serum or plasma creatine kinase measurement (enzymatic activity/volume) 82 30 - 200 07/25/2018 [facility] Serum or plasma creatine kinase MB measurement (mass/volume) 1.10 0 - 5.0 07/25/2018 [facility] Troponin I measurement by highly sensitive enzyme immunoassay 0.007 0 - 0.300 07/25/2018 [facility] Blood culture NO GROWTH AFTER 48 HOURS 07/25/2018 [facility] Urine color determination YELLOW YELLOW 07/25/2018 [facility] Urine clarity CLOUDY CLEAR 07/25/2018 [facility] Specific gravity of Urine by Test strip 1.025 1.010 - 1.025 07/25/2018 [facility] Urine pH measurement by automated test strip 6 5 - 7 07/25/2018 [facility] Urine leukocyte esterase detection by dipstick 1+ NEGATIVE 07/25/2018 [facility] Urine nitrite detection POSITIVE NEGATIVE 07/25/2018 [facility] Urine protein measurement by test strip (mass/volume) TRACE NEGATIVE 07/25/2018 [facility] Urine glucose detection NEGATIVE NEGATIVE 07/25/2018 [facility] Urine ketones detection by automated test strip NEGATIVE NEGATIVE 07/25/2018 [facility] Urine urobilinogen measurement by test strip (mass/volume) 0.2 0.2 - 1 07/25/2018 [facility] Urine total bilirubin measurement (mass/volume) NEGATIVE NEGATIVE 07/25/2018 [facility] Urine erythrocytes detection 1+ NEGATIVE 07/25/2018 [facility] Automated urine sediment leukocyte count by microscopy (number/high power field) >50 0 - 5 07/25/2018 [facility] Erythrocytes detection in urine sediment by light microscopy 6-10 0 - 5 07/25/2018 [facility] Bacteria detection in urine sediment by light microscopy MANY NONE 07/25/2018 [facility] Epithelial cells detection in urine sediment by light microscopy FEW NONE 07/25/2018 [facility] Transitional cells detection in urine sediment by light microscopy MODERATE NONE 07/25/2018 [facility] Lactic Acid Level 18.1 4.5 - 19.8 07/25/2018 [facility] ELECTROLYTES POC AGAP 16.0 10.0 - 20.0 04/02/2018 [facility] ELECTROLYTES POC Hematocrit 42.0 42.0 - 54.0 04/02/2018 [facility] ELECTROLYTES eGFR 96 04/02/2018 Result Comment: The eGFR is calculated using [...] by the estimated BMI. [facility] ELECTROLYTES POC Creatinine 0.7 0.5 - 1.4 04/02/2018 [facility] ELECTROLYTES POC BUN 17 7 - 22 04/02/2018 [facility] ELECTROLYTES POC Hemoglobin 14.3 14.0 - 18.0 04/02/2018 [facility] ELECTROLYTES POC Ion Ca 1.18 1.05 - 1.25 04/02/2018 [facility] ELECTROLYTES POC Glucose 170 70 - 99 04/02/2018 [facility] ELECTROLYTES POC Potassium 4.2 3.5 - 5.1 04/02/2018 [facility] ELECTROLYTES POC Sodium 137 135 - 145 04/02/2018 [facility] ELECTROLYTES POC Carbon Dioxide 26 24 - 32 04/02/2018 [facility] ELECTROLYTES POC Chloride 101 95 - 109 04/02/2018 [facility] HEMATOLOGY WBC 22.2 3.7 - 10.4 11/21/2017 [facility] HEMATOLOGY MCHC 33.9 32.0 - 36.0 11/21/2017 [facility] HEMATOLOGY MPV 8.3 7.4 - 10.4 11/21/2017 [facility] HEMATOLOGY RDW 13.1 11.5 - 14.5 11/21/2017 [facility] HEMATOLOGY Platelet 227 133 - 450 11/21/2017 [facility] HEMATOLOGY MCV 87.2 80.0 - 94.0 11/21/2017 [facility] HEMATOLOGY RBC 4.03 4.70 - 6.10 11/21/2017 [facility] HEMATOLOGY Hgb 11.9 14.0 - 18.0 11/21/2017 [facility] HEMATOLOGY MCH 29.5 27.0 - 31.0 11/21/2017 [facility] HEMATOLOGY Hct 35.1 42.0 - 54.0 11/21/2017 [facility] HEMATOLOGY Basophils 0.1 0.0 - 1.0 11/21/2017 [facility] HEMATOLOGY Lymphocytes # 1.2 1.0 - 5.5 11/21/2017 [facility] HEMATOLOGY Monocytes 9.3 2.0 - 12.0 11/21/2017 [facility] HEMATOLOGY Segs-Bands # 19.0 1.5 - 8.1 11/21/2017 [facility] HEMATOLOGY Lymphocytes 5.3 20.0 - 40.0 11/21/2017 [facility] HEMATOLOGY Segs 85.3 45.0 - 75.0 11/21/2017 [facility] HEMATOLOGY RBC Morph Normal (11/21/17 5:18 AM) 11/21/2017 [facility] HEMATOLOG[facility] Plt Morph Normal (11/21/17 5:18 AM) 11/21/2017 [facility] HEMATOLOGY Monocytes # 2.1 0.0 - 0.8 11/21/2017 [facility] CHEM PANEL eGFR 70 11/20/2017 Result Comment: The eGFR is calculated [...] [facility] CHEM PANEL CO2 24 24 - 32 11/20/2017 [facility] CHEM PANEL Calcium Lvl 8.4 8.5 - 10.5 11/20/2017 [facility] CHEM PANEL Glucose Lvl 210 70 - 99 11/20/2017 [facility] CHEM PANEL Potassium Lvl 4.5 3.5 - 5.1 11/20/2017 [facility] CHEM PANEL Sodium Lvl 134 135 - 145 11/20/2017 [facility] CHEM PANEL BUN 19 7 - 22 11/20/2017 [facility] CHEM PANEL Creatinine Lvl 1.07 0.50 - 1.40 11/20/2017 [facility] CHEM PANEL Chloride Lvl 101 95 - 109 11/20/2017 [facility] CHEM PANEL AGAP 13.5 10.0 - 20.0 11/20/2017 [facility] HEMATOLOGY MCHC 33.4 32.0 - 36.0 11/20/2017 [facility] HEMATOLOGY RDW 13.2 11.5 - 14.5 11/20/2017 [facility] HEMATOLOGY Hgb 12.7 14.0 - 18.0 11/20/2017 [facility] HEMATOLOGY Hct 38.0 42.0 - 54.0 11/20/2017 [facility] HEMATOLOGY MCV 86.4 80.0 - 94.0 11/20/2017 [facility] HEMATOLOGY MCH 28.9 27.0 - 31.0 11/20/2017 [facility] HEMATOLOGY WBC 20.7 3.7 - 10.4 11/20/2017 [facility] HEMATOLOGY RBC 4.40 4.70 - 6.10 11/20/2017 [facility] HEMATOLOGY Platelet 246 133 - 450 11/20/2017 [facility] HEMATOLOGY MPV 7.9 7.4 - 10.4 11/20/2017 [facility] HEMATOLOGY Segs 85.4 45.0 - 75.0 11/20/2017 [facility] HEMATOLOGY Lymphocytes 6.2 20.0 - 40.0 11/20/2017 [facility] HEMATOLOGY Monocytes 8.4 2.0 - 12.0 11/20/2017 [facility] HEMATOLOGY Monocytes # 1.7 0.0 - 0.8 11/20/2017 [facility] HEMATOLOGY Lymphocytes # 1.3 1.0 - 5.5 11/20/2017 [facility] HEMATOLOGY Segs-Bands # 17.7 1.5 - 8.1 11/20/2017 [facility] BLOOD BANK RESULTS Antibody Scrn Negative (11/19/17 7:28 AM) 11/19/2017 [facility] BLOOD BANK RESULTS ABO/Rh O POS 11/19/2017 [facility] BLOOD BANK RESULTS ABO/Rh O POS 11/07/2017 [facility] BLOOD BANK RESULTS Antibody Scrn Negative (11/07/17 8:15 AM) 11/07/2017 [facility] CHEM PANEL B/C Ratio 17 6 - 25 11/07/2017 [facility] CHEM PANEL AGAP 16.8 10.0 - 20.0 11/07/2017 [facility] CHEM PANEL Globulin 4.2 2.7 - 4.2 11/07/2017 [facility] CHEM PANEL A/G Ratio 0.8 0.7 - 1.6 11/07/2017 [facility] CHEM PANEL eGFR 73 11/07/2017 Result Comment: The eGFR is calculated [...] [facility] Spine CHEM PANEL Total Protein 7.4 6.4 - 8.4 11/07/2017 [facility] CHEM PANEL Alk Phos 115 39 - 136 11/07/2017 [facility] CHEM PANEL Bili Total 0.2 0.2 - 1.3 11/07/2017 [facility] CHEM PANEL ALANINE AMINOTRANSFERASE 46 0 - 65 11/07/2017 [facility] CHEM PANEL Albumin Lvl 3.2 3.5 - 5.0 11/07/2017 [facility] CHEM PANEL ASPARTATE TRANSAMINASE 33 0 - 37 11/07/2017 [facility] CHEM PANEL Sodium Lvl 139 135 - 145 11/07/2017 [facility] CHEM PANEL Potassium Lvl 3.8 3.5 - 5.1 11/07/2017 [facility] [facility] CHEM PANEL Chloride Lvl 103 95 - 109 11/07/2017 [facility] PANEL CO2 23 24 - 32 11/07/2017 [facility] CHEM PANEL Glucose Lvl 199 70 - 99 11/07/2017 [facility] CHEM PANEL BUN 18 7 - 22 11/07/2017 [facility] CHEM PANEL Creatinine Lvl 1.04 0.50 - 1.40 11/07/2017 [facility] CHEM PANEL Calcium Lvl 8.6 8.5 - 10.5 11/07/2017 [facility] HEMATOLOGY MPV 8.3 7.4 - 10.4 11/07/2017 [facility] HEMATOLOGY Platelet 261 133 - 450 11/07/2017 [facility] HEMATOLOGY Hct 41.2 42.0 - 54.0 11/07/2017 [facility] HEMATOLOGY Hgb 13.7 14.0 - 18.0 11/07/2017 [facility] HEMATOLOGY RBC 4.68 4.70 - 6.10 11/07/2017 [facility] HEMATOLOGY WBC 9.9 3.7 - 10.4 11/07/2017 [facility] HEMATOLOGY MCHC 33.3 32.0 - 36.0 11/07/2017 [facility] HEMATOLOGY MCH 29.3 27.0 - 31.0 11/07/2017 [facility] HEMATOLOGY MCV 88.0 80.0 - 94.0 11/07/2017 [facility] HEMATOLOGY RDW 13.2 11.5 - 14.5 11/07/2017 [facility] HEMATOLOGY Monocytes 10.7 2.0 - 12.0 11/07/2017 [facility] HEMATOLOGY Eosinophils 2.1 0.0 - 4.0 11/07/2017 [facility] HEMATOLOGY Segs 62.1 45.0 - 75.0 11/07/2017 [facility] HEMATOLOGY Monocytes # 1.1 0.0 - 0.8 11/07/2017 [facility] HEMATOLOGY Basophils # 0.1 0.0 - 0.2 11/07/2017 [facility] HEMATOLOGY Eosinophils # 0.2 0.0 - 0.5 11/07/2017 [facility] HEMATOLOGY Segs-Bands # 6.1 1.5 - 8.1 11/07/2017 [facility] HEMATOLOGY Basophils 0.6 0.0 - 1.0 11/07/2017 [facility] HEMATOLOGY Lymphocytes # 2.4 1.0 - 5.5 11/07/2017 [facility] HEMATOLOGY Lymphocytes 24.5 20.0 - 40.0 11/07/2017 [facility] HEMATOLOGY PROTIME 12.6 12.0 - 14.7 11/07/2017 [facility] HEMATOLOGY aPTT 30.3 22.9 - 35.8 11/07/2017 [facility] HEMATOLOGY INR 0.94 0.85 - 1.17 11/07/2017 [facility] SPECIAL CHEMISTRY Hgb A1C 6.9 <=5.6 % 11/07/2017 [facility] CHEM PANEL eGFR 76 10/24/2017 Result Comment: The eGFR is calculated [...] [facility] CHEM PANEL POC AGAP 16.0 10.0 - 20.0 10/24/2017 [facility] CHEM PANEL POC Hemoglobin 15.3 14.0 - 18.0 10/24/2017 [facility] CHEM PANEL POC Hematocrit 45.0 42.0 - 54.0 10/24/2017 [facility] CHEM PANEL POC Ion Ca 1.18 1.05 - 1.25 10/24/2017 [facility] CHEM PANEL POC Creatinine 1.0 0.5 - 1.4 10/24/2017 [facility] CHEM PANEL POC Glucose 218 70 - 99 10/24/2017 [facility] CHEM PANEL POC Carbon Dioxide 26 24 - 32 10/24/2017 [facility] CHEM PANEL POC BUN 28 7 - 22 10/24/2017 [facility] CHEM PANEL POC Chloride 100 95 - 109 10/24/2017 [facility] CHEM PANEL POC Potassium 4.8 3.5 - 5.1 10/24/2017 [facility] CHEM PANEL POC Sodium 136 135 - 145 10/24/2017 [facility] Bacterial urine culture Urine Culture [facility] Pathology Reports No Data Provided for This Section Diagnostic Reports Report Value Date Source Spine lumbar myelogram CT EXAM: CT MYELOGRAM LUMBAR SPINE DATE: 04/02/2018 12:49 PM CDT INDICATION: spinal stenosis, lumbosacral region. spondylolisheis, lumbar region. - ct lumbar ADDITIONAL INFORMATION: Status post L2-L3 laminectomy, facetectomy, foraminotomy, decompression of the 2 and 3 nerve roots and central canal and L2- L3 posterior spinal fusion with spine [place] pedicle screws segmental instrumentation, allograft local bone [...] atrophy in the lower lumbar spine. 04/02/2018 [facility] Spine lumbar myelogram DX EXAM: SPINE LUMBAR MYELOGRAM DX Date: 04/02/2018 1334 hours PREPROCEDURE DIAGNOSIS: Lower back pain POST PROCEDURE DIAGNOSIS: Same HIMS CODER: Dahlia Koehler M.D. SALES COORDINATOR: Agustin Lombardi M.D ANESTHESIA: Local anesthesia was [...] for injection of intrathecal contrast material. 04/02/2018 [facility] Spine lumbar 2 or 3 views [...] L2-3 appear unchanged with adequate alignment. 11/21/2017 [facility] Spine lumbar single view DX EXAM: XR [...] alignment of L2-L3 posterior fixation hardware. 11/19/2017 [facility] Spine lumbar myelogram CT EXAM: MYELOGRAM LUMBAR [...] compressive effect on the nerve roots. 10/24/2017 [facility] Sp[facility] lumbar myelogram DX EXAM: MYELOGRAM LUMBAR [...] compressive effect on the nerve roots. 10/24/2017 [facility] Consultation Notes No Data Provided for This Section Discharge Summaries No Data Provided for This Section History and Physicals No Data Provided for This Section Vital Signs Vital Sign Value Date Comments Source Respitory Rate 17 04/02/2018 [facility] Heart Rate 64 04/02/2018 [facility] Systolic (mm Hg) 119 04/02/2018 [facility] Diastolic (mm Hg) 63 04/02/2018 [facility] Heart Rate 62 04/02/2018 [facility] Respitory Rate 18 04/02/2018 [facility] Systolic (mm Hg) 117 04/02/2018 [facility] Diastolic (mm Hg) 62 04/02/2018 [facility] Respitory Rate 18 04/02/2018 [facility] Systolic (mm Hg) 108 04/02/2018 [facility] Diastolic (mm Hg) 61 04/02/2018 [facility] Heart Rate 65 04/02/2018 [facility] BMI Calculated 28.47 04/02/2018 [facility] Weight 90 04/02/2018 [facility] Height 177.8 cm 04/02/2018 [facility] Systolic (mm Hg) 139 11/22/2017 [facility] Diastolic (mm Hg) 86 11/22/2017 [facility] Respitory Rate 16 11/22/2017 [facility] Heart Rate 69 11/22/2017 [facility] Temperature Oral (F) 98.1 F 11/22/2017 [facility] Respitory Rate 18 11/22/2017 [facility] Systolic (mm Hg) 132 11/22/2017 [facility] Diastolic (mm Hg) 75 11/22/2017 [facility] Heart Rate 68 11/22/2017 [facility] Temperature Oral (F) 98.2 F 11/22/2017 [facility] Respitory Rate 18 11/22/2017 [facility] Heart Rate 62 11/22/2017 [facility] Temperature Oral (F) 98.4 F 11/22/2017 [facility] Systolic (mm Hg) 142 11/22/2017 [facility] Diastolic (mm Hg) 79 11/22/2017 [facility] BMI Calculated 33.5 11/19/2017 [facility] Weight 105.909 11/19/2017 [facility] Height 177.8 cm 11/06/2017 [facility] Respitory Rate 18 10/24/2017 [facility] Heart Rate 75 10/24/2017 [facility] Systolic (mm Hg) 127 10/24/2017 [facility] Diastolic (mm Hg) 65 10/24/2017 [facility] Systolic (mm Hg) 120 10/24/2017 [facility] Diastolic (mm Hg) 72 10/24/2017 [facility] Heart Rate 81 10/24/2017 [facility] Respitory Rate 18 10/24/2017 [facility] Heart Rate 86 10/24/2017 [facility] Respitory Rate 17 10/24/2017 [facility] Systolic (mm Hg) 126 10/24/2017 [facility] Diastolic (mm Hg) 87 10/24/2017 [facility] BMI Calculated 33.5 10/24/2017 [facility] Height 177.8 cm 10/24/2017 [facility] Weight 105.909 10/24/2017 [facility] Weight 245 09/23/2013 [facility] Height 70 09/23/2013 [facility] Heart Rate 70 09/23/2013 [facility] Diastolic (mm Hg) 70 09/23/2013 [facility] Systolic (mm Hg) 1130 09/23/2013 [facility] Weight 232 06/26/2013 [facility] Height 70 06/26/2013 [facility] Temperature Oral (F) 98.6 F 06/26/2013 [facility] Heart Rate 70 06/26/2013 [facility] Diastolic (mm Hg) 72 06/26/2013 [facility] Systolic (mm Hg) 120 06/26/2013 [facility] Weight 236 06/17/2013 [facility] Height 70 06/17/2013 [facility] Temperature Oral (F) 98.4 F 06/17/2013 [facility] Heart Rate 71 06/17/2013 [facility] Diastolic (mm Hg) 88 06/17/2013 [facility] Systolic (mm Hg) 142 06/17/2013 [facility] Weight 237 03/04/2013 [facility] Height 70 03/04/2013 [facility] Temperature Oral (F) 98.6 F 03/04/2013 [facility] Heart Rate 74 03/04/2013 [facility] Diastolic (mm Hg) 70 03/04/2013 [facility] Systolic (mm Hg) 115 03/04/2013 [facility] Weight 236 02/13/2013 [facility] Height 70 02/13/2013 [facility] Heart Rate 68 02/13/2013 [facility] Diastolic (mm Hg) 76 02/13/2013 [facility] Systolic (mm Hg) 136 02/13/2013 [facility] Weight 228 01/17/2013 [facility] Height 70 01/17/2013 [facility] Temperature Oral (F) 99.0 F 01/17/2013 [facility] Heart Rate 72 01/17/2013 [facility] Diastolic (mm Hg) 78 01/17/2013 [facility] Systolic (mm Hg) 130 01/17/2013 [facility] Encounters Location Location Details Encounter Type Encounter Number Reason For Visit Attending Provider ADM Date DC Date Status Source [facility] 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 [id number] 01/17/2013 01/17/2013 [facility] 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 [id number] 01/17/2013 01/17/2013 [facility] 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 [id number] 01/17/2013 01/17/2013 [facility] 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 [id number] 01/17/2013 01/17/2013 [facility] 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 [id number] 01/17/2013 01/17/2013 [facility] 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 [id number] 01/17/2013 01/17/2013 [facility] 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 [id number] 01/17/2013 01/17/2013 [facility] 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 [id number] 01/17/2013 01/17/2013 [facility] 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 [id number] 01/17/2013 01/17/2013 [facility] 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 [id number] 01/17/2013 01/17/2013 [facility] 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 [id number] 01/17/2013 01/17/2013 [facility] Unknown [id number] 02/10/2013 02/10/2013 [facility] Unknown [id number] 02/10/2013 02/10/2013 [facility] Unknown [id number] 02/10/2013 02/10/2013 [facility] Unknown [id number] 02/10/2013 02/10/2013 [facility] Unknown [id number] 02/10/2013 02/10/2013 [facility] Unknown [id number] 02/10/2013 02/10/2013 [facility] Unknown [id number] 02/10/2013 02/10/2013 [facility] Unknown [id number] 02/10/2013 02/10/2013 [facility] Unknown [id number] 02/10/2013 02/10/2013 [facility] Unknown [id number] 02/10/2013 02/10/2013 [facility] Unknown [id number] 02/10/2013 02/10/2013 [facility] Unknown [id number] 02/10/2013 02/10/2013 [facility] cough [id number] 02/13/2013 02/13/2013 [facility] cough [id number] 02/13/2013 02/13/2013 [facility] cough [id number] 02/13/2013 02/13/2013 [facility] cough [id number] 02/13/2013 02/13/2013 [facility] cough [id number] 02/13/2013 02/13/2013 [facility] cough [id number] 02/13/2013 02/13/2013 [facility] cough [id number] 02/13/2013 02/13/2013 [facility] cough [id number] 02/13/2013 02/13/2013 [facility] cough [id number] 02/13/2013 02/13/2013 [facility] cough [id number] 02/13/2013 02/13/2013 [facility] cough [id number] 02/13/2013 02/13/2013 [facility] Unknown [id number] 05/09/2013 05/09/2013 [facility] Unknown [id number] 05/09/2013 05/09/2013 [facility] Unknown [id number] 05/09/2013 05/09/2013 [facility] Unknown [id number] 05/09/2013 05/09/2013 [facility] Unknown [id number] 05/09/2013 05/09/2013 [facility] Unknown [id number] 05/09/2013 05/09/2013 [facility] Unknown [id number] 05/09/2013 05/09/2013 [facility] Unknown [id number] 05/09/2013 05/09/2013 [facility] Unknown [id number] 05/09/2013 05/09/2013 [facility] Heart racing [id number] 06/17/2013 06/17/2013 [facility] Heart racing [id number] 06/17/2013 06/17/2013 [facility] Heart racing [id number] 06/17/2013 06/17/2013 [facility] Heart racing [id number] 06/17/2013 06/17/2013 [facility] Heart racing [id number] 06/17/2013 06/17/2013 [facility] Heart racing [id number] 06/17/2013 06/17/2013 [facility] Heart racing [id number] 06/17/2013 06/17/2013 [facility] Unknown [id number] 06/18/2013 06/18/2013 [facility] Unknown [id number] 06/18/2013 06/18/2013 [facility] Unknown [id number] 06/18/2013 06/18/2013 [facility] Unknown [id number] 06/18/2013 06/18/2013 [facility] Unknown [id number] 06/18/2013 06/18/2013 [facility] Unknown [id number] 06/18/2013 06/18/2013 [facility] Unknown [id number] 06/18/2013 06/18/2013 [facility] Unknown [id number] 06/18/2013 06/18/2013 [facility] sick [id number] 06/23/2013 06/23/2013 [facility] sick [id number] 06/23/2013 06/23/2013 [facility] sick [id number] 06/23/2013 06/23/2013 [facility] sick [id number] 06/23/2013 06/23/2013 [facility] sick [id number] 06/23/2013 06/23/2013 [facility] sick [id number] 06/23/2013 06/23/2013 [facility] sick [id number] 06/23/2013 06/23/2013 [facility] sick [id number] 06/26/2013 06/26/2013 [facility] sick [id number] 06/26/2013 06/26/2013 [facility] sick [id number] 06/26/2013 06/26/2013 [facility] sick [id number] 06/26/2013 06/26/2013 [facility] sick [id number] 06/26/2013 06/26/2013 [facility] fell on ribs [id number] 09/23/2013 09/23/2013 [facility] fell on ribs [id number] 09/23/2013 09/23/2013 [facility] fell on ribs [id number] 09/23/2013 09/23/2013 [facility] fell on ribs [id number] 09/23/2013 09/23/2013 [facility] Unknown [id number] 11/12/2013 11/12/2013 [facility] Unknown [id number] 11/12/2013 11/12/2013 [facility] Unknown [id number] 11/12/2013 11/12/2013 [facility] REFILL [id number] 11/25/2013 11/25/2013 [facility] REFILL [id number] 11/25/2013 11/25/2013 [facility] REFILL [id number] 11/25/2013 11/25/2013 [facility] Unknown [id number] 01/12/2014 01/12/2014 [facility] Outpatient [id number] Mark Graff 10/24/2017 10/25/2017 [id number]22/2017 [id number] [facility] 02/07/2018 [id number] [facility] Inpatient [id number] JOHANNA CHRISTINE MD 07/25/2018 [facility] Procedures Procedure Code Date Perfomer Comments Source Computed tomography of brain without radiopaque contrast [id number] 07/25/2018 [facility] Computed tomography of cervical spine without contrast [id number] 07/25/2018 [facility] Myelography via lumbar injection, including radiological supervision and interpretation; lumbosacral [id number] 04/02/2018 [facility] Spinal fusion [id number] 11/19/2017 [facility] Myelography via lumbar injection, including radiological supervision and interpretation; lumbosacral [id number] 10/24/2017 [facility] Exploratory lumbar laminectomy [id number] 06/18/1984 [facility] Cataract extraction and insertion of intraocular lens [id number] [facility] Lumbar spinal fusion [id number] [facility] Rotator cuff repair [id number] [facility] Exploratory lumbar laminectomy [id number] [facility] Assessment and Plan Assessment and Plan Date Source Extracted from:Title: Progress Note Author: Vu Diane DO Date: 11/22/17 67 year old [...] retention resolved. dc tamsulosin ambulation home Extracted from:Title: pre-op H&P Author: Mark Finney MD Date: [...] fusion. ASSESSMENT: 1) Acquired lumbar spondylolisthesis (ICD-738.4) (NDS27-B78.16) 2) Lumbosacral spinal stenosis (ICD-724.02) (TYL91-B42.07) Additional Assessment L2-L3 spondylolisthesis and stenosis above previous fusion. TREATMENT PLAN: L2-L3 Posterior Spinal Instrumentation Fusion and Decompression. I recommend we proceed with L2-L3 laminectomy, facetectomy, foraminotomy, decompression, and posterior fusion. I have gone over the surgery with him. He understands. Common risk and benefits have been discussed with the patient, he understands and wants to proceed with the procedure. 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 Given elevated CHADS- VASC score would recommendpatient be started onanticoagulation with [...] andall questions answered. [facility] Hospitalist Consult Please [email or web address] any questions 11/22/2017 [facility] Plan of Care Plan of Care Date Source Discharge Date 07/27/18 5:36pm Disposition HOME, SELF-CARE Instructions/Education Provided Pyelonephritis Prescriptions See Medication Section Referrals ALEENA FRANCIS MD (Endocrinology) Entered Date: 07/27/2018 4:48pm Address: [address] [place] [address] Additional Instructions/Education RESUME DIET AND ACTIVITIES DIRECTED. FOLLOW UP WITH YOUR PRIMARY CARE PROVIDER DIRECTED; FOLLOW UP WITH DR. FRANCIS IN 1-2 WEEKS. 07/27/2018 [facility] Social History Social History Date Source Smoking Status Start Date Stop Date Current every day smoker 07/27/2018 [facility] Social History TypeResponse Exercise 1 Alcohol Past Smoking Status Never smoker; Exposure to Tobacco Smoke None; Cigarette Smoking Last 365 Days No; Reg Smoking Cessation Counseling No entered on: 11/19/17 1Denies sob on exertion 11/06/2017 [facility] Social History ElementQualifiersDate Reported Ethnicity . Status , Is syriac your primary language? 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 [employer] September 23, 2013 09/23/2013 [facility] Family History Value Date Source QualifierDescriptionCommentDate Reported Maternal Grandmother Comment not available September 23, 2013 Paternal Grandmother Comment not available September 23, 2013 Siblings alive diabetes mellitus, COPD September 23, 2013 Maternal Grandfather Comment not available September 23, 2013 Children alive hypertension September 23, 2013 Father colon cancer September 23, 2013 Paternal Grandfather Comment not available September 23, 2013 Mother lung cancer September 23, 2013 10/03/2013 [facility] QualifierDescriptionCommentDate Reported Maternal Grandmother Comment not available Jun 26, 2013 Paternal Grandmother Comment not available Jun 26, 2013 Siblings alive diabetes mellitus, COPD Jun 26, 2013 Maternal Grandfather Comment not available Jun 26, 2013 Children alive hypertension Jun 26, 2013 Father colon cancer Jun 26, 2013 Paternal Grandfather Comment not available Jun 26, 2013 Mother lung cancer Jun 26, 2013 07/10/2013 [facility] QualifierDescriptionCommentDate Reported Maternal Grandmother Comment not available Jun 17, 2013 Paternal Grandmother Comment not available Jun 17, 2013 Siblings alive diabetes mellitus, COPD Jun 17, 2013 Maternal Grandfather Comment not available Jun 17, 2013 Children alive hypertension Jun 17, 2013 Father colon cancer Jun 17, 2013 Paternal Grandfather Comment not available Jun 17, 2013 Mother lung cancer Jun 17, 2013 06/25/2013 [facility] QualifierDescriptionCommentDate Reported Maternal Grandmother Comment not available Feb 13, 2013 Paternal Grandmother Comment not available Feb 13, 2013 Siblings alive diabetes mellitus, COPD Feb 13, 2013 Maternal Grandfather Comment not available Feb 13, 2013 Children alive hypertension Feb 13, 2013 Father colon cancer Feb 13, 2013 Paternal Grandfather Comment not available Feb 13, 2013 Mother lung cancer Feb 13, 2013 04/05/2013 [facility] QualifierDescriptionCommentDate Reported Maternal Grandmother Comment not available Jan 17, 2013 Paternal Grandmother Comment not available Jan 17, 2013 Siblings alive diabetes mellitus, COPD Jan 17, 2013 Maternal Grandfather Comment not available Jan 17, 2013 Children alive hypertension Jan 17, 2013 Father colon cancer Jan 17, 2013 Paternal Grandfather Comment not available Jan 17, 2013 Mother lung cancer Jan 17, 2013 04/05/2013 [facility] Advance Directives Order Name Results Value Date Source Advance Directives Advance Directives Directive Response Recorded Date/Time Does the patient have an advance directive? No 07/25/18 6:47am If yes, is advance directive on file with [facility]? No 07/25/18 6:47am If not on file with [facility] will patient provide a copy? No 07/25/18 6:47am Do you have a Directive to Physician? No 07/25/18 4:47am Do you have a Medical Power of Source Inspector? No 07/25/18 4:47am Do you have an out of hospital Do Not Resuscitate Order? No 07/25/18 4:47am Do you have any special needs we should be aware of? No 07/25/18 4:47am Do you have a support person here with you today? Yes 07/25/18 4:47am Did patient receive Notice of Privacy Practices? Yes 07/25/18 4:47am Did patient receive patient rights and responsibilities? Yes 07/25/18 4:47am 07/27/2018 [facility] Functional Status No Data Provided for This Section
--- OUTSIDE RECORDS SUMMARY | 2019-01-09 19:48 | XMS REPORT | Summary of Care ---
Author Author [facility] Organization [facility] Address Unknown Phone Unavailable Encounter HQ Syeda(FIN) [id number] Date(s): 04/02/18 - 04/02/18 [facility] [address] [place] [phone]- [phone] Encounter Diagnosis Sacrococcygeal disorders, not elsewhere classified (Final) - 04/18/18 Spinal stenosis, lumbosacral region (Final) - Spondylolisthesis, lumbar region (Final) - Arthrodesis status (Final) - Discharge Disposition: Home or Self Care Attending Physician: Mark Finney MD Referring Physician: Mark Finney MD Vital Signs 1 2 3 Most recent to oldest [Reference Range]: 177.8 cm (04/02/18 1:00 PM) Height 119/63 mmHg (04/02/18 2:40 PM) 117/62 mmHg (04/02/18 2:30 PM) 108/61 mmHg (04/02/18 2:20 PM) Blood Pressure [90-140/60-90 mmHg] 17 BRMIN (04/02/18 2:40 PM) 18 BRMIN (04/02/18 2:30 PM) 18 BRMIN (04/02/18 2:20 PM) Respiratory Rate [14-20 BRMIN] 64 bpm (04/02/18 2:40 PM) 62 bpm (04/02/18 2:30 PM) 65 bpm (04/02/18 2:20 PM) Peripheral Pulse Rate [60-100 bpm] 90 kg (04/02/18 1:00 PM) Weight 28.47 m2 (04/02/18 1:00 PM) Body Mass Index Problem List Condition [...] that the Zofran made him Vomit Medications No Known Medications Results Most recent to 1 oldest [Reference Range]: eGFR 96 mL/min/1.73m2 1 *NA* (04/02/18 1:56 PM) POC BUN [7-22 mg/dL] 17 mg/dL (04/02/18 1:56 PM) POC Ion Ca 1.18 mMol/L [1.05-1.25 mMol/L] (04/02/18 1:56 PM) POC Chloride [95-109 101 mEq/L mEq/L] (04/02/18 1:56 PM) POC Carbon Dioxide 26 mEq/dL [24-32 mEq/dL] (04/02/18 1:56 PM) POC Creatinine 0.7 mg/dL [0.5-1.4 mg/dL] (04/02/18 1:56 PM) POC Glucose [70-99 170 mg/dL mg/dL] *HI* (04/02/18 1:56 PM) POC Hematocrit 42.0 % [42.0-54.0 %] (04/02/18 1:56 PM) POC Hemoglobin 14.3 g/dL [14.0-18.0 g/dL] (04/02/18 1:56 PM) POC Potassium 4.2 mEq/L [3.5-5.1 mEq/L] (04/02/18 1:56 PM) POC Sodium [135-145 137 mEq/L mEq/L] (04/02/18 1:56 PM) POC AGAP [10.0-20.0 16.0 mEq/L mEq/L] (04/02/18 1:56 PM) 1Result Comment: The eGFR is calculated [...] be mul tiplied by the estimated BMI. Immunizations No data available for this section Procedures Procedure Date Related Diagnosis Body Site Status Myelography via lumbar injection, including 04/02/18 Completed radiological supervision and interpretation; lumbosacral Spinal fusion 11/19/17 Completed Exploratory lumbar laminectomy [...] 1Denies sob on exertion Assessment and Plan No data available for this section
--- OUTSIDE RECORDS SUMMARY | 2019-01-09 19:49 | XMS REPORT | Summary of Care ---
Author Author [facility] Organization [facility] Address Unknown Phone Unavailable Encounter HQ Syeda(FIN) [id number] Date(s): 02/07/18 - 02/07/18 [facility] [address] [address]- [phone] Attending Physician: Mark Finney MD Referring Physician: Mark Finney MD Vital Signs No data available for this section Problem List Condition Effective Dates Status Health [...] the Zofran made him Vomit Medications No data available for this section Results No data available for this section Immunizations No data available for this section Procedures Procedure Date Related Diagnosis Body Site Status Spinal fusion 11/19/17 Completed Exploratory lumbar laminectomy 1985 Completed Cataract extraction and insertion of Completed [...]
[2019-01-09 21:18] LABS: BILIRUBIN,URINE NEGATIVE (NEGATIVE); CLARITY,URINE SL CLOUDY (CLEAR); COLOR,URINE YELLOW (YELLOW); KETONES,URINE NEGATIVE (NEGATIVE); LEUKOCYTE ESTERASE ,URINE SMALL (NEGATIVE); NITRITE,URINE NEGATIVE (NEGATIVE); PROTEIN,URINE DIPSTICK 2+ (NEGATIVE); URINE UROBILINOGEN 0.2 mg/dL (0.2 - 1)
[2019-01-09 21:30] LABS: BACTERIA,URINE RARE /HPF; CALCIUM OXALATE CRYSTALS,UR FEW (FEW); EPITHELIAL CELLS,URINE RARE /LPF; RBC,URINE 21-50 /HPF (0-5)
[2019-01-09 22:39] VITALS: BP 156/74
== END 2019-01-09 22:32 | disposition home or self-care (01) ==
LOC: ER 19:45
DX: T83.84XA Pain due to genitourinary prosthetic devices, implants and grafts, initial encounter (principal); N30.91 Cystitis, unspecified with hematuria; I10 Essential (primary) hypertension; E11.9 Type 2 diabetes mellitus without complications; I25.10 Atherosclerotic heart disease of native coronary artery without angina pectoris; F32.9 Major depressive disorder, single episode, unspecified; Z86.73 Personal history of transient ischemic attack (TIA), and cerebral infarction without residual deficits
CPT/HCPCS: 81001; 87086; 87186; 99283

== ENCOUNTER 2019-01-22 21:28 | Inpatient (IN) | payer MEDICARE ==
[~2019-01-22] VITALS: Ht 170.2 cm; Wt 99.8 kg
--- OUTSIDE RECORDS SUMMARY | 2019-01-22 21:31 | XMS REPORT | Clinical Summary ---
Author Author [facility] Organization [facility] Address Unknown Phone Unavailable Care Team Providers Care Irs Agent Name Role Phone Jeremy Olivo MD PCP [...] (four) hours as needed for moderate pain. 02/13/2018 Discontinued HYDROcodone-acetaminophen Take 1 tablet 60 [...] 8 by mouth daily for 30 days. 02/13/2018 Discontinued pregabalin (LYRICA) 50 MG Take 1 60 capsule 0 capsule capsule (50 8 mg total) by mouth 2 (two) times a day for 30 days. 02/13/2018 Discontinued hyoscyamine Take 1 tablet 60 tablet 0 (ANASPAZ,LEVSIN) 0.125 mg (0.125 mg 8 tablet total) by mouth every 4 (four) hours as needed for cramping for up to 30 days. 02/13/2018 Discontinued docusate sodium (COLACE) Take 1 [...] joint (Primary Dx); Unable to walk 02/07/2018 [facility] General Internal Medicine - Encounter 02/13/2018 after 01/21/2018 Family History Medical History Relation Name Comments [...] MMODE SPECTRAL 12:21 PM CDT COLOR DOPPLER ([id number]) POC GLUCOSE Routine 02/09/2018 10:34 AM CDT [...] VIEWS LEFT STAT 02/07/2018 1:45 PM CDT after 01/21/2018 Results * MRI Lumbar Spine Wo Contrast [...] possible left L4-L5 subarticular zone disc protrusion. [id number] Procedure Note Hm Interface, Radiology Results Incoming [...] possible left L4-L5 subarticular zone disc protrusion. [id number] Performing Organization Address City/[facility]/Zipcode Phone Number [facility] [address] [place] [address] * POC glucose (02/13/2018 12:17 PM CDT) Only the most recent of 23 results within the time period is included. Pathologist [facility] POC glucose 175 (H) 65 - 99 mg/dL [facility] Comment: OF PATHOLOGY [facility] Notified RN AND GENOMIC Meter ID: [id number] MEDICINE Track Repair Worker: Rogerjen Burch Jessica Specimen Performing Organization Address [facility] Cent[facility]ode Phone Number [facility]PART[facility] OF [address] [place] [address] PATHOLOGY AND GENOMIC MEDICINE * XR Chest 1 Vw Portable (02/10/2018 1:30 PM CDT) Specimen Narrative Performed At EXAMINATION:XR CHEST 1 VW PORTABLE [facility] CLINICAL HISTORY:cough COMPARISON: February 07, 2018 . IMPRESSION: 1.Heart size and mediastinum are prominent. 2.The right hemidiaphragm is slightly elevated. Lungs are clear. 3.No pneumothorax. 4.Evaluation is stable relative to prior. [facility]-[id number] Procedure Note Interface, Radiology Results Incoming - 02/10/2018 1:43 PM CDT EXAMINATION: XR CHEST 1 VW PORTABLE CLINICAL HISTORY: cough COMPARISON: February 07, 2018 . IMPRESSION: 1. Heart size and mediastinum are prominent. 2. The right hemidiaphragm is slightly elevated. Lungs are clear. 3. No pneumothorax. 4. Evaluation is stable relative to prior. [facility]-[id number] Performing Organization Address City/[facility]/Zipcode Phone Number [facility] [address] [place] [address] * CBC hemogram (02/10/2018 5:30 AM CDT) Pathologist [facility] WBC 10.64 4.50 - 11.00 k/uL [facility] OF PATHOLOGY AND GENOMIC MEDICINE RBC 4.13 (L) 4.40 - 6.00 m/uL [facility] OF PATHOLOGY AND GENOMIC MEDICINE HGB 12.0 (L) 14.0 - 18.0 g/dL [facility] OF PATHOLOGY AND GENOMIC MEDICINE HCT 37.4 (L) 41.0 - 51.0 % [facility] OF PATHOLOGY AND GENOMIC MEDICINE MCV 90.6 82.0 - 100.0 fL [facility] OF PATHOLOGY AND GENOMIC MEDICINE MCH 29.1 27.0 - 34.0 pg [facility] OF PATHOLOGY AND GENOMIC MEDICINE MCHC 32.1 31.0 - 37.0 g/dL [facility] OF PATHOLOGY AND GENOMIC MEDICINE RDW - SD 44.1 37.0 - 55.0 fL [facility] OF PATHOLOGY AND GENOMIC MEDICINE MPV 9.7 8.8 - 13.2 fL [facility] OF PATHOLOGY AND GENOMIC MEDICINE Platelet count 251 150 - 400 k/uL [facility] OF PATHOLOGY AND GENOMIC MEDICINE Nucleated RBC 0.00 /100 WBC [facility] OF PATHOLOGY AND GENOMIC MEDICINE Specimen Blood Performing Organization Address City/State/[facility] [place] [address] PATHOLOGY [facility] * Estimated GFR (02/10/2018 4:00 AM CDT) Only the most recent of 3 results within the time period is included. GFR Non Af Amer >90 mL/min/1.73 m2 [facility] OF PATHOLOGY AND GENOMIC MEDICINE GFR Af Amer >90 mL/min/1.73 m2 [facility] Comment: OF PATHOLOGY Chronic kidney disease: [...] Americans. Specimen Plasma specimen Performing Organization Address City/State/Zipcode Phone Number [place] [phone] [facility] * Basic metabolic panel (02/10/2018 4:00 AM CDT) Only the most recent of 2 results within the time period is included. Sodium 138 135 - 148 mEq/L [facility] PATHOLOGY AND GENOMIC MEDICINE Potassium 4.0 3.5 - 5.0 mEq/L [facility] OF PATHOLOGY AND GENOMIC MEDICINE Chloride 99 98 - 112 mEq/L [facility] OF PATHOLOGY AND GENOMIC MEDICINE CO2 26 24 - 31 mEq/L [facility] OF PATHOLOGY AND GENOMIC MEDICINE Anion gap 13@ANIO 7 - 15 mEq/L [facility] OF PATHOLOGY AND GENOMIC MEDICINE BUN 14 8 - 23 mg/dL [facility] OF PATHOLOGY AND GENOMIC MEDICINE Creatinine 0.7 0.7 - 1.2 mg/dL [facility] OF PATHOLOGY AND GENOMIC MEDICINE Glucose 71 65 - 99 mg/dL [facility] OF PATHOLOGY AND GENOMIC MEDICINE Calcium 9.3 8.8 - 10.2 mg/dL [facility] OF PATHOLOGY AND GENOMIC MEDICINE Specimen Plasma specimen Performing Organization Address City/State/Zipcode Phone Number [facility] DEPARTMENT OF [address] [place] [address] PATHOLOGY AND GENOMIC MEDICINE * Echocardiogram complete w contrast and 3D if needed (02/09/2018 12:21 PM CDT) Specimen Narrative Performed At [facility] Echocardiography Report [address] [place] [address] 9, [place] [address] Pat.Name:VU ALVAREZ Pat.ID:[id number] .Date: 02/09/2018 Refer.MD:RUDI KAHN MD Exam Time: 11:06:00 AM Study Type:Routine Echo Height:70inWeight:197lb BSA: 2.08 m2 DOBAge:1950,67Y Sex: MALEBP:146/78 HR:69 bpm Sonogrphr: AUDREY Herrera Pat. Stat.:Inpatient Room:[facility] Study Status:Final Echo Event ID:[id number] Order ID:[id number] Reason for Study:Atrial fibrillation History / Clinical:Atrial [...] RAPof 5 mmHg. MEASUREMENTS: 2D Parasternal Long [place] LVOT 2.3 cmLA Ds2.8 cm LVIDd4.4 cmIndex2.1 cm/m Ao Rtd 3.7 cm Index1.8 cm/m LVIDs2.9 cm LV Gdfk514.8 g(122-174) LV%fs 33.8 % LVM Index 83.6 g/m2 IVSd 1.3 cmRWT0.4 LVPWd0.9 cm LA Sng Plane LA Area 14 cm2(8.8-23.4) LA Vol32.9 ml Index15.8 ml/m LA LngAx 4.5 cm Signed 02/09/2018 07:49 PM Lyndsey Sy M.D. Procedure Note Interface, Radiology Results In - 02/09/2018 7:50 PM CDT Echocardiography Report [address] [address] Pat.Name: VU ALVAREZ Pat.ID: [id number] .Date: 02/09/2018 Refer.MD: RUDI KAHN MD Exam Time: 11:06:00 AM Study Type:Routine Echo Height: 70in Weight: 197lb BSA: 2.08 m2 Age: 2 1950,67Y Sex: MALE BP: 146/78 HR: 69 bpm Sonogrphr: AUDREY Herrera Pat. Stat.:Inpatient Room: [facility] Study Status:Final Echo Event ID:[id number] Order ID: [id number] Reason for Study:Atrial fibrillation History / Clinical:Atrial [...] of 5 mmHg. MEASUREMENTS: 2D Parasternal Long [place] LVOT 2.3 cm LA Ds 2.8 cm [...] PM Lyndsey Sy M.D. Performing Organization Address [facility] CenterEye [facility]ne Phone Number [facility] [address] [place] [address] * Cv ecg exercise stress (no imaging) (02/09/2018 9:29 AM CDT) Resting HR 67 [facility] Resting BP 164 [facility] Peak MET 1.0 [facility] Achieved Protocol Name [facility] M[facility] Time in 00:01:00 H MUSE Exercise Phase Max Systolic BP 164 [facility] Max Diastolic 79 [facility] BP Max Heart Rate 83 [facility] Max Predicted 151 H MUSE Heart Rate Target HR (220 - Age)*100% [facility] Formula Test Indication A-FIB [facility] Stress Test -Waveform interpreted in [facility] Impression report associated with image study. No interpretation is provided as part of this Stress ECG report.-Electronically Signed By Marian MANUEL, [facility] ([id number]), photographic editor Jocy Russo ([id number]) on 02/09/2018 10:15:57 AM Target HR 128.35 bpm [facility] Specimen Performing Organization Address [facility] Phone Number [facility] [employer] [address] [place] [address] * Nm myocardial perfusion (02/09/2018 9:29 AM CDT) Specimen Narrative Performed At [facility] Nuclear Cardiology and Cardiac CT [address] [facility] [place] [address], [place] [address] Myocardial Perfusion Imaging Report Stress ECG tracings are available in [employer], [employer] and [employer] All ECG interpretations are included in this report Pat.Name:Cortez Alvarez.ID:[id number] .Date: 02/09/2018 Refer.MD:RUDI KAHN MD Exam Time: 8:51:00 AM Study Type:Myocardial Perfusion Imaging Height:62inBSA: 1.9 m2 DOBAge:1950,67YSex: MALE BP:164/79HR: 67 bpm HCT: 38.1 % Nuclear Tech:TORI Whittington, TORI Walsh Pat. Stat.:Inpatient Room:[facility] Nuclear Event ID:[id number] Order ID:[id number] Reason for Study:Atrial fibrillation*, Pre-op evaluation non-coronary [...] PM CDT Nuclear Cardiology and Cardiac CT [address] [place] [address] Myocardial Perfusion Imaging Report Stress ECG tracings are available in [employer], [employer] and [employer] All ECG interpretations are included in this report Pat.Name: Vu Alvarez Christina.ID: [id number] .Date: 02/09/2018 Refer.MD: RUDI KAHN MD Exam Time: 8:51:00 AM Study Type:Myocardial Perfusion Imaging Height: 62in BSA: 1.9 m2 Age: 2 1950,67Y Sex: MALE BP: 164/79 HR: 67 bpm HCT: 38.1 % Nuclear Tech:TORI Whittington, Steff Mccormack, [facility] Pat. Stat.:Inpatient Room: A845 Nuclear Event ID:[id number] Order ID: [id number] Reason for Study:Atrial fibrillation*, Pre-op evaluation non-coronary [...] Organization Address City/State/Zipcode Phone Number [facility] [address] [place] [address] * CBC with platelet and differential (02/08/2018 5:05 AM CDT) Only the most recent of 2 results within the time period is included. WBC 12.45 (H) 4.50 - 11.00 k/uL [facility] OF PATHOLOGY AND GENOMIC MEDICINE RBC 4.35 (L) 4.40 - 6.00 m/uL [facility] OF PATHOLOGY AND GENOMIC MEDICINE HGB 12.5 (L) 14.0 - 18.0 g/dL [facility] DEPARTMENT OF PATHOLOGY AND GENOMIC MEDICINE HCT 38.1 (L) 41.0 - 51.0 % [facility] DEPARTMENT OF PATHOLOGY AND GENOMIC MEDICINE MCV 87.6 82.0 - 100.0 fL [facility] DEPARTMENT OF PATHOLOGY AND GENOMIC MEDICINE MCH 28.7 27.0 - 34.0 pg [facility] DEPARTMENT OF PATHOLOGY AND GENOMIC MEDICINE MCHC 32.8 31.0 - 37.0 g/dL [facility] DEPARTMENT OF PATHOLOGY AND GENOMIC MEDICINE RDW - SD 43.1 37.0 - 55.0 fL [facility] DEPARTMENT OF PATHOLOGY AND GENOMIC MEDICINE MPV 9.4 8.8 - 13.2 fL [facility] DEPARTMENT OF PATHOLOGY AND GENOMIC MEDICINE Platelet count 256 150 - 400 k/uL [facility] DEPARTMENT OF PATHOLOGY AND GENOMIC MEDICINE Nucleated RBC 0.00 /100 WBC [facility] DEPARTMENT OF PATHOLOGY AND GENOMIC MEDICINE Neutrophils 62.2 39.0 - 69.0 % [facility] DEPARTMENT OF PATHOLOGY AND GENOMIC MEDICINE Lymphocytes 23.2 (L) 25.0 - 45.0 % [facility] OF PATHOLOGY AND GENOMIC MEDICINE Monocytes 12.2 (H) 0.0 - 10.0 % [facility] OF PATHOLOGY AND GENOMIC MEDICINE Eosinophils 1.1 0.0 - 5.0 % [facility]PART[facility] OF PATHOLOGY AND GENOMIC MEDICINE Basophils 0.7 0.0 - 1.0 % [facility] OF PATHOLOGY AND GENOMIC MEDICINE Immature 0.6Comment: "Immature 0.0 - 1.0 % [facility] granulocytes granulocytes" (promyelocytes, OF PATHOLOGY myelocytes, metamyelocytes) AND GENOMIC MEDICINE Specimen Blood Performing Organization Address City/[facility] Cent[facility]one Phone Number [facility] DEPARTMENT OF [address] [place] [address] PATHOLOGY AND GENOMIC MEDICINE * ECG 12 lead (02/07/2018 10:21 PM CDT) Ventricular 84 [facility]USE rate Atrial rate 84 [facility] MT interval 214 [facility] QRSD interval 94 [facility]USE QT interval 370 [facility] QTC interval 437 [facility] P axis 1 37 [facility] QRS axis 1 4 [facility] T wave axis 83 [facility] EKG impression Sinus rhythm with 1st degree [facility] AV block-Nonspecific T wave abnormality-Abnormal ECG-In automated comparison with ECG of 29-DEC-2017 15:42,-Nonspecific T wave abnormality, worse in Anterior leads- Specimen Performing Organization Address [facility] Cent[facility]one Phone Number [facility] [address] [place] [address] * XR Chest 1 Vw (02/07/2018 6:35 [...] identified. No acute osseous abnormalities are visualized. [facility]-[id number] Procedure Note Hm Interface, Radiology Results Incoming [...] identified. No acute osseous abnormalities are visualized. [facility]-[id number] Performing Organization Address City/State/Zipcode Phone Number [facility] [address] [place] [address] * CT Pelvis Wo Contrast (02/07/2018 4:22 PM CDT) Specimen Narrative Performed At EXAMINATION:CT PELVIS WO CONTRAST [facility] CLINICAL HISTORY:fall TECHNIQUE:Axial images ofpelviswithout contrast.Images were [...] OA. Thickening and stranding involving the left picking machine operator helper externus and interosseous muscles indicative of hemorrhage [...] and intramuscular hemorrhage/traumatic strain of the left picking machine operator helper externus and internus. Distended urinary bladder consider [place]. Constipation and/or fecal impaction. Disimpaction recommended to avoid stercoral colitis. [facility]-[id number] Procedure Note [facility], Radiology Results Incoming - 02/07/2018 5:12 PM [...] OA. Thickening and stranding involving the left picking machine operator helper externus and interosseous muscles indicative of hemorrhage [...] and intramuscular hemorrhage/traumatic strain of the left picking machine operator helper externus and internus. Distended urinary bladder consider [place]. Constipation and/or fecal impaction. Disimpaction recommended to avoid stercoral colitis. [facility]-[id number] Performing Organization Address [facility] [place] [address] * Partial thromboplastin time, activated (02/07/2018 1:56 PM CDT) Pathologist [facility] PTT 30.2 23.0 - 36.0 sec [facility] Comment: OF PATHOLOGY PTT therapeutic range for AND GENOMIC unfractionated heparin is MEDICINE 61.0-112.0 seconds which corresponds to Anti-Xa 0.3-0.7 U/ml. Specimen Blood Performing Organization Address [facility] Centercode Phone Number [facility] [place] [address] PATHOLOGY AND GENOMIC MEDICINE * Prothrombin time with INR (02/07/2018 1:56 PM CDT) Pathologist [facility] Prothrombin 13.9 12.0 - 15.0 sec [facility] time OF PATHOLOGY AND GENOMIC MEDICINE INR 1.1 [facility] Comment: OF PATHOLOGY The International Normalized AND GENOMIC Ratio (INR) is a therapeutic MEDICINE monitoring tool for patients who are stable on oral anticoagulant therapy. An INR of 2.0-3.0 is suggested for deep vein thrombosis/pulmonary embolism. Specimen Blood Performing Organization Address [facility] Centercode Phone Number [facility] [address] [address] PATHOLOGY AND GENOMIC MEDICINE * Comprehensive metabolic panel (02/07/2018 1:56 PM CDT) Sodium 137 135 - 148 mEq/L [facility] DEPARTMENT OF PATHOLOGY AND GENOMIC MEDICINE Potassium 4.4 3.5 - 5.0 mEq/L [facility] DEPARTMENT OF PATHOLOGY AND GENOMIC MEDICINE Chloride 97 (L) 98 - 112 mEq/L [facility] DEPARTMENT OF PATHOLOGY AND GENOMIC MEDICINE CO2 23 (L) 24 - 31 mEq/L [facility] DEPARTMENT OF PATHOLOGY AND GENOMIC MEDICINE Anion gap 17@ANIO (H) 7 - 15 mEq/L [facility] DEPARTMENT OF PATHOLOGY AND GENOMIC MEDICINE BUN 15 8 - 23 mg/dL [facility] DEPARTMENT OF PATHOLOGY AND GENOMIC MEDICINE Creatinine 0.7 0.7 - 1.2 mg/dL [facility] DEPARTMENT OF PATHOLOGY AND GENOMIC MEDICINE Glucose 189 (H) 65 - 99 mg/dL [facility] DEPARTMENT OF PATHOLOGY AND GENOMIC MEDICINE Calcium 9.4 8.8 - 10.2 mg/dL [facility] DEPART[facility] OF PATHOLOGY AND GENOMIC MEDICINE Protein 7.2 6.3 - 8.3 g/dL [facility] Comment: OF PATHOLOGY [place] AND GENOMIC 4.6-7.0 g/dL MEDICINE 1 week 4.4-7.6 g/dL 7 months-1year 5.1-7.3 g/dL 1-2 years5.6-7 .5 g/dL >3 years6.0-8 .0 g/dL 18-150 6.3-8.3 g/dL Albumin 3.5 3.5 - 5.0 g/dL [facility] DEPART[facility] OF PATHOLOGY AND GENOMIC MEDICINE A/G ratio 0.9 0.7 - 3.8 [facility] OF PATHOLOGY AND GENOMIC MEDICINE Alkaline 102 40 - 129 U/L [facility] phosphatase OF PATHOLOGY AND GENOMIC MEDICINE AST 23 10 - 50 U/L [facility] DE[facility] OF PATHOLOGY AND GENOMIC MEDICINE ALT 22 5 - 50 U/L [facility] DEPART[facility] OF PATHOLOGY AND GENOMIC MEDICINE Total bilirubin 0.3 0.0 - 1.2 mg/dL [facility] DEPART[facility] OF PATHOLOGY AND GENOMIC MEDICINE Specimen Plasma specimen Performing Organization Address City/State/Zipcode Phone Number [facility] DEPARTMENT OF [address] [place] [address] PATHOLOGY AND GENOMIC MEDICINE * XR Pelvis [...] in the rectosigmoid. No visible acute fracture. [facility]-[id number] Procedure Note Interface, Radiology Results Incoming - 02/07/2018 2:19 PM CDT EXAMINATION: XR PELVIS 1 OR 2 VW INDICATION: fall at 31m this morning r o trauma COMPARISON: None IMPRESSION: A single frontal view of the pelvis was obtained. Limited evaluation of the sacrum and pubic body secondary to large amount of stool in the rectosigmoid. No visible acute fracture. [facility]-[id number] Performing Organization Address City/State/Zipcode Phone Number [facility] [address] [place] [address] * XR Hip 2-3 View Left (02/07/2018 1:45 PM CDT) Specimen Narrative Performed At EXAMINATION:XR HIP 2-3 VIEWS LEFT [facility]IANT CLINICAL HISTORY:fall at 31m this morningr o trauma COMPARISON:None. IMPRESSION: 1.The left hip is in normal anatomic alignment. There is no evidence of fracture or dislocation. 2.No radiopaque foreign bodies are seen within the soft tissues. [facility]-[id number] Procedure Note Hm Interface, Radiology Results Incoming - 02/07/2018 1:53 PM CDT EXAMINATION: XR HIP 2-3 VIEWS LEFT CLINICAL HISTORY: fall at 31m this morning r o trauma COMPARISON: None. IMPRESSION: 1. The left hip is in normal anatomic alignment. There is no evidence of fracture or dislocation. 2. No radiopaque foreign bodies are seen within the soft tissues. [facility]-[id number] Performing Organization Address [facility] Centercode Phone Number [facility] [address] [place] [address] after 01/21/2018 Insurance Type Payer Benefit Subscriber ID Effective Phone Address Plan / Dates Group Medicare MEDICARE MEDICARE xxxxxxxxxxx 2013-P [place], PART A AND resent [place] B Commercial [facility] xxxxxxxxxx 2017-P SUPPLEMENT resent Advance Directives Patient has advance care planning documents, and code status on file. For more i nformation, please contact: Gerardo Buchanan [address] [place] [address] Date Inactivated Comments Code Status Date Activated 02/13/2018 8:43 PM Full Code 02/07/2018 7:34 PM Code Status decision reached by: Patient 02/07/2018 7:34 PM Full Code 02/07/2018 7:24 PM Code Status decision reached by: Patient 01/08/2018 9:35 PM Full Code 12/31/2017 6:56 PM Code Status decision reached by: Patient
--- OUTSIDE RECORDS SUMMARY | 2019-01-22 21:32 | XMS REPORT | Continuity of Care Document ---
Author Author [employer] Organization [employer] Address Unknown Phone Unavailable Care Team Providers Care Vice Chair Name Role Phone [employer] Unavailable Unavailable Problems Problem Status Onset Date Classification Date Reported Comments Source M48.062 Active 01/14/2019 [facility] Sacrococcygeal disorders, not elsewhere classified 04/19/2018 10/20/2018 [facility] M48.061, M43.16 Active 03/31/2018 [facility] M48.061, M43.16 BACK PAIN Active 03/31/2018 [facility] M48.061, M43.16 LOW BACK PAIN Active 01/29/2018 [facility] STENOSIS Active 10/31/2017 [facility] M43.16, M48.061 Active 10/16/2017 [facility] MRSA culture positive(Confirmed)2 Active 06/18/2007 Problem 10/20/2018 [facility] Obesity Active Diagnosis 07/10/2013 [facility] Bronchitis Active [facility] Tachycardia Active Diagnosis 06/25/2013 [facility] Asthma1 Active Problem [...] [facility] SPONDYLOLISTHESIS, LUMBAR REGION Active [facility] SPINAL STENOSIS, LUMBAR REGION WITHOUT N Active [facility] Medications Medication Details Route Status Patient Instructions Ordering Provider Order Date Source Insulin Regular, Human (Humulin R) 100 Unit/1 Ml Vial Before Meals Active Lesley 07/27/2018 [facility] Nph, Human Insulin Isophane (Novolin N) 100 Unit/1 Ml Vial Twice A Day Active Lesley 07/27/2018 [facility] Tetracycline Hcl 500 Mg Capsule Twice A Day Active Lesley 07/27/2018 [facility] Insulin Regular, Human (Humulin R) 100 Unit/1 Ml Vial, 25 Unit Sub-Q Before Meals Active 07/27/2018 [facility] Nph, Human Insulin Isophane (Novolin N) 100 Unit/1 Ml Vial, 25 Unit Sub-Q Twice A Day Active 07/27/2018 [facility] Duloxetine Hcl (Cymbalta) 30 Mg Capsule.dr, 60 Mg Oral Daily Active 07/25/2018 [facility] Losartan Potassium 25 Mg Tablet, 25 Mg Peg Tube Daily Active 07/25/2018 [facility] tizanidine 4 MG Oral Capsule [Zanaflex] 4 mg=1 cap, PO, TID, # 40 cap, 0 Refill(s) Active 11/21/2017 [facility] Acetaminophen 325 MG / Hydrocodone Bitartrate 10 MG Oral Tablet [[place] 10/325] 1-2 tab, PO, Q4-6H, PRN Pain, [...] Longer Active 11/20/2017 [facility] sennosides, LONG TERM 8.6 mg, 1 tab, Route: PO, Drug [...] mL, Route: IV, Initial Loading Dose: 0.4mg, INTERLINE CLERK Dose: 0.3 mg, INTERLINE CLERK Lockout: 15 minutes, Continuous Basal Rate: 0 mg, 4 Hour Limit (In MG): 7, Drug Form: INJ, Continuous, Start date: 11/19/17 11 :20:00 CDT, Duration: 30 day, Stop date: 12/19/17...Notes: (Same as: Dilaudid) conc=0.5 mg/ml Hydromorphone INTERLINE CLERK Dose: ;Delay: ;Basal: No Longer Active 11/19/2017 [...] day, Stop date: 12/19/17 11:19:00 CDT, 2.31, [id number]: PREMIX IV - Do Not Alter WASTE: [...] not exceed 4gm/day of acetaminophen. (Same as: [place] 325/10) No Longer Active 11/19/2017 [facility] [...] 11:19:00 CDTNotes: (aluminum hydroxide-mag nesium hyd- simethicone [id number]/5ml 30 ml ud GEO) No Longer Active [...] " WASTE: F/P - Black; E - [employer] Trash Bin Stable for 28 days at [...] [facility] Ipratropium [place] as directed Inhalation Active 0.02 % Inhalation every 4 hours [facility] 06/26/2013 [facility] Norel CS 1 teaspoon Orally Active 10-4-12.5 MG/5ML Orally three times a day (tid) [facility] 06/26/2013 [facility] ProAir HFA 2 puffs as needed Inhalation Active 108 (90 Base) MCG/ACT Inhalation every 4 -6 hrs [facility] 06/23/2013 [facility] Zithromax Z-Landry 2 tablets on the first day, then 1 tablet daily for 4 days Orally Active 250 MG Orally Once a day [facility] 06/23/2013 [facility] Bystolic 1 tablet Orally Active 10 mg Orally Once a day [facility] 06/17/2013 [facility] Cymbalta 1 capsule Orally Active 60 MG Orally Once a day (patient needs to be seen before next refill) [facility] 05/09/2013 [facility] Cymbalta 1 capsule Orally No Longer Active 30 mg Orally Once a day [place] 02/13/2013 [facility] Tramadol HCl 1 tablet as needed Orally Active 50 mg Orally every 6 hrs [place] 02/13/2013 [facility] Cymbalta 1 capsule Orally Active 60 MG Orally Once a day [place] 02/13/2013 [facility] Amlodipine Besylate 1 tablet Orally Active 10 mg Orally Once a day [facility] 02/13/2013 [facility] Novolin N 23 units Subcutaneous Active 100 UNIT/ML Subcutaneous AM and PM [facility] Metformin HCl 2 tablet Orally Active 500 mg Orally Twice a day [facility] Simvastatin 1 tablet Orally No Longer Active 40 mg Orally Once a day [facility] Novolin R 23 units Injection Active 100 UNIT/ML Injection TID with meals [facility] Lisinopril 1 tablet Orally No Longer Active 10 mg Orally Once a day [facility] Metformin HCl TAKE TWO TABLETS BY MOUTH TWICE DAILY NA Active 500 [facility] Amlodipine Besylate TAKE ONE TABLET BY MOUTH EVERY DAY NA Active 10MG [facility] Aspirin 1 tablet Orally Active 325 MG Orally Once a day [facility] Amlodipine Besylate 10 Mg Tablet Daily Active [facility] Aspirin 81 Mg Tab.chew Daily Active [facility] Atorvastatin Calcium 20 Mg Tablet Bedtime Active [facility] Docusate Sodium 100 Mg Capsule Daily Active [facility] Finasteride 5 Mg Tablet Daily Active [facility] Flecainide Acetate 100 Mg Tablet Twice A Day Active [facility] Gabapentin 400 Mg Capsule Four Times Daily Active [facility] Hydrocodone Bit/Acetaminophen ([place] 10-325 Tablet) 1 Each Tablet Every 8 Hours as needed for Pain Active [facility] Metformin Hcl 500 Mg Tablet Twice A Day Active [facility] Morphine Sulfate (Morphine Sulfate Er) 30 Mg Tablet.er Every 12 Hours as needed for Pain Active [facility] Ramipril 5 Mg Capsule Daily Active [facility] Tamsulosin Hcl 0.4 Mg Cap.er.24h Daily Active [facility] Allergies, Adverse Reactions, Alerts Substance Category Reaction Severity Reaction type Status Date Reported Comments Source Carisoprodol Unknown Allergy to Substance Active 07/25/2018 [facility] Lincomycin Unknown Allergy to Substance Active 07/25/2018 [facility] Soma Assertion rash Drug allergy Active [facility] [...] Value Reference Range Date Interpretation Comments Source Urine color determination YELLOW YELLOW 01/09/2019 [facility] Urine clarity SL CLOUDY CLEAR 01/09/2019 [facility] Specific gravity of Urine by Test strip >=1.030 1.010 - 1.025 01/09/2019 [facility] Urine pH measurement by automated test strip 6 5 - 7 01/09/2019 [facility] Urine leukocyte esterase detection by automated test strip SMALL NEGATIVE 01/09/2019 [facility] Urine nitrite detection by automated test strip NEGATIVE NEGATIVE 01/09/2019 [facility] Urine protein detection by automated test strip 2+ NEGATIVE 01/09/2019 [facility] Urine glucose detection by automated test strip NEGATIVE NEGATIVE 01/09/2019 [facility] Urine ketones detection by automated test strip NEGATIVE NEGATIVE 01/09/2019 [facility] Urine urobilinogen measurement by test strip (mass/volume) 0.2 0.2 - 1 01/09/2019 [facility] Urine total bilirubin detection NEGATIVE NEGATIVE 01/09/2019 [facility] Urine erythrocytes detection 3+ NEGATIVE 01/09/2019 [facility] Automated urine sediment leukocyte count by microscopy (number/high power field) 6-10 0 - 5 01/09/2019 [facility] Erythrocytes detection in urine sediment by light microscopy 21-50 0 - 5 01/09/2019 [facility] Bacteria detection in urine sediment by light microscopy RARE NONE 01/09/2019 [facility] Epithelial cells detection in urine sediment by light microscopy RARE NONE 01/09/2019 [facility] Calcium oxalate crystals detection in urine sediment by light microscopy FEW FEW 01/09/2019 [facility] Capillary blood glucose measurement by glucometer (mass/volume) 213 70 - 120 07/27/2018 [facility] Capillary blood glucose measurement by glucometer (mass/volume) 213 70 - 120 07/27/2018 [facility] Serum or plasma cortisol measurement on morning peak specimen (mass/volume) 15.8 6.2 - 19.4 07/26/2018 [facility] Blood leukocytes automated count (number/volume) 11.30 4.8 - 10.8 07/26/2018 [facility] Blood erythrocytes automated count (number/volume) 4.58 4.3 - 5.7 07/26/2018 [facility] Blood hemoglobin measurement (moles/volume) 13.2 14.0 - 18.0 07/26/2018 [facility] Automated blood hematocrit (volume fraction) 40.7 38.2 - 49.6 07/26/2018 [facility] Automated erythrocyte mean corpuscular volume 88.9 81 - 99 07/26/2018 [facility] Automated erythrocyte mean corpuscular hemoglobin (mass per erythrocyte) 28.8 28 - 32 07/26/2018 [facility] Automated erythrocyte mean corpuscular hemoglobin concentration measurement (mass/volume) 32.4 31 - 35 07/26/2018 [facility] RDW BldCo-Rto 13.1 11.7 - 14.4 07/26/2018 [facility] Automated blood platelet count (count/volume) 352 140 - 360 07/26/2018 [facility] Automated blood segmented neutrophil count as percentage of total leukocytes 61.3 38.7 - 80.0 07/26/2018 [facility] Automated blood lymphocyte count as percentage ot total leukocytes 25.0 18.0 - 39.1 07/26/2018 [facility] Automated blood monocyte count as percentage of total leukocytes 9.2 4.4 - 11.3 07/26/2018 [facility] Automated blood eosinophil count as percentage of total leukocytes 2.5 0.0 - 6.0 07/26/2018 [facility] Automated blood basophil count as percentage of total leukocytes 1.0 0.0 - 1.0 07/26/2018 [facility] IM GRANULOCYTES % 1.0 0.0 - 1.0 07/26/2018 [facility] Automated blood neutrophil count 6.9 2.1 - 6.9 07/26/2018 [facility] Blood lymphocytes count (number/volume) 2.8 1.0 - 3.2 07/26/2018 [facility] Blood monocytes automated count (number/volume) 1.0 0.2 - 0.8 07/26/2018 [facility] Automated blood eosinophil count 0.3 0.0 - 0.4 07/26/2018 [facility] Automated blood basophil count (count/volume) 0.1 0.0 - 0.1 07/26/2018 [facility] Absolute Immature Granulocyte (auto 0.11 0 - 0.1 07/26/2018 [facility] Aspartate Amino Transf (AST/SGOT) 21 5 - 34 07/26/2018 [facility] Serum or plasma alanine aminotransferase measurement (enzymatic activity/volume) 30 0 - 55 07/26/2018 [facility] Serum or plasma protein measurement (mass/volume) 7.2 6.5 - 8.1 07/26/2018 [facility] Serum or plasma albumin measurement (mass/volume) 3.1 3.5 - 5.0 07/26/2018 [facility] Plasma globulin measurement (mass/volume) 4.1 2.3 - 3.5 07/26/2018 [facility] Serum or plasma albumin/globulin mass ratio 0.8 0.8 - 2.0 07/26/2018 [facility] Serum or plasma alkaline phosphatase measurement (enzymatic activity/volume) 111 40 - 150 07/26/2018 [facility] Serum or plasma triglyceride measurement (mass/volume) 114 0 - 149 07/26/2018 [facility] Serum or plasma cholesterol measurement (mass/volume) 103 0 - 199 07/26/2018 [facility] Serum or plasma cholesterol in LDL measurement (mass/volume) 48 60 - 130 07/26/2018 [facility] Serum or plasma cholesterol in HDL measurement (mass/volume) 32 40 - 60 07/26/2018 [facility] Hemoglobin A1c Percent 6.8 4.0 - 7.0 07/26/2018 [facility] Serum or plasma magnesium measurement (mass/volume) 2.1 1.3 - 2.1 07/26/2018 [facility] Serum or plasma thyrotropin measurement by detection limit <=0.005 miu/l (units/volume) 0.794 0.350 - 4.940 07/26/2018 [facility] Aspartate Amino Transf (AST/SGOT) 21 5 - 34 07/26/2018 [facility] Serum or plasma alanine aminotransferase measurement (enzymatic activity/volume) 30 0 - 55 07/26/2018 [facility] Serum or plasma protein measurement (mass/volume) 7.2 6.5 - 8.1 07/26/2018 [facility] Serum or plasma albumin measurement (mass/volume) 3.1 3.5 - 5.0 07/26/2018 [facility] Plasma globulin measurement (mass/volume) 4.1 2.3 - 3.5 07/26/2018 [facility] Serum or plasma albumin/globulin mass ratio 0.8 0.8 - 2.0 07/26/2018 [facility] Serum or plasma alkaline phosphatase measurement (enzymatic activity/volume) 111 40 - 150 07/26/2018 [facility] Serum or plasma triglyceride measurement (mass/volume) 114 0 - 149 07/26/2018 [facility] Serum or plasma cholesterol measurement (mass/volume) 103 0 - 199 07/26/2018 [facility] Serum or plasma cholesterol in LDL measurement (mass/volume) 48 60 - 130 07/26/2018 [facility] Serum or plasma cholesterol in HDL measurement (mass/volume) 32 40 - 60 07/26/2018 [facility] Serum or plasma total cholesterol/cholesterol in HDL mass ratio 3.2 3.9 - 4.7 07/26/2018 [facility] Serum or plasma thyrotropin measurement by detection limit <=0.005 miu/l (units/volume) 0.794 0.350 - 4.940 07/26/2018 [facility] Serum or plasma sodium measurement (moles/volume) 137 136 - 145 07/26/2018 [facility] Serum or plasma potassium measurement (moles/volume) 4.1 3.5 - 5.1 07/26/2018 [facility] Serum or plasma chloride measurement (moles/volume) 103 98 - 107 07/26/2018 [facility] Serum or plasma carbon dioxide, total measurement (moles/volume) 25 22 - 29 07/26/2018 [facility] Serum or plasma anion gap 13.1 8 - 16 07/26/2018 [facility] Serum or plasma urea nitrogen measurement (mass/volume) 14 7 - 26 07/26/2018 [facility] Serum or plasma creatinine measurement (mass/volume) 0.80 0.72 - 1.25 07/26/2018 [facility] Serum or plasma urea nitrogen/creatinine mass ratio 18 6 - 25 07/26/2018 [facility] Estimated glomerular filtration rate (GFR) determination > 60 60 07/26/2018 [facility] Glucose measurement 186 74 - 118 07/26/2018 [facility] Serum or plasma calcium measurement (mass/volume) 9.4 8.4 - 10.2 07/26/2018 [facility] Hemoglobin A1c Percent 6.8 4.0 - 7.0 07/26/2018 [facility] Serum or plasma magnesium measurement (mass/volume) 2.1 1.3 - 2.1 07/26/2018 [facility] Serum or plasma total bilirubin measurement (mass/volume) 0.2 0.2 - 1.2 07/26/2018 [facility] Serum or plasma total cholesterol/cholesterol in HDL mass ratio 3.2 3.9 - 4.7 07/26/2018 [facility] Serum or plasma creatine kinase measurement (enzymatic activity/volume) 82 30 - 200 07/25/2018 [facility] Serum or plasma creatine kinase MB measurement (mass/volume) 1.10 0 - 5.0 07/25/2018 [facility] Troponin I measurement by highly sensitive enzyme immunoassay 0.007 0 - 0.300 07/25/2018 [facility] Blood culture NO GROWTH AFTER 5 DAYS, FINAL REPORT 07/25/2018 [facility] Serum or plasma creatine kinase measurement (enzymatic activity/volume) 82 30 - 200 07/25/2018 [facility] Serum or plasma creatine kinase MB measurement (mass/volume) 1.10 0 - 5.0 07/25/2018 [facility] Troponin I measurement by highly sensitive enzyme immunoassay 0.007 0 - 0.300 07/25/2018 [facility] Transitional cells detection in urine sediment by light microscopy MODERATE NONE 07/25/2018 [facility] Urine clarity CLOUDY CLEAR 07/25/2018 [facility] Specific gravity of Urine by Test strip 1.025 1.010 - 1.025 07/25/2018 [facility] Urine pH measurement by automated test strip 6 5 - 7 07/25/2018 [facility] Urine leukocyte esterase detection by dipstick 1+ NEGATIVE 07/25/2018 [facility] Urine nitrite detection POSITIVE NEGATIVE 07/25/2018 [facility] Urine protein measurement by test strip (mass/volume) TRACE NEGATIVE 07/25/2018 [facility] Urine glucose detection NEGATIVE NEGATIVE 07/25/2018 [facility] Urine ketones detection by automated test strip NEGATIVE NEGATIVE 07/25/2018 [facility] Urine urobilinogen measurement by test strip (mass/volume) 0.2 0.2 - 1 07/25/2018 [facility] Urine total bilirubin measurement (mass/volume) NEGATIVE NEGATIVE 07/25/2018 [facility] Urine erythrocytes detection 1+ NEGATIVE 07/25/2018 [facility] Automated urine sediment leukocyte count by microscopy (number/high power field) >50 0 - 5 07/25/2018 [facility] Erythrocytes detection in urine sediment by light microscopy 6-10 0 - 5 07/25/2018 [facility] Bacteria detection in urine sediment by light microscopy MANY NONE 07/25/2018 [facility] Epithelial cells detection in urine sediment by light microscopy FEW NONE 07/25/2018 [facility] Transitional cells detection in urine sediment by light microscopy MODERATE NONE 07/25/2018 [facility] Lactic Acid Level 18.1 4.5 - 19.8 07/25/2018 [facility] Lactic Acid Level 18.1 4.5 - 19.8 07/25/2018 [facility] ELECTROLYTES POC AGAP 16.0 10.0 - 20.0 [...] and Spine Bacterial urine culture Urine Culture [facility] Pathology Reports No Data Provided for This [...] L2- L3 posterior spinal fusion with spine Cobb pedicle screws segmental instrumentation, allograft local bone [...] atrophy in the lower lumbar spine. 04/02/2018 [facility] Spine lumbar myelogram DX EXAM: SPINE LUMBAR MYELOGRAM DX Date: 04/02/2018 1334 hours PREPROCEDURE DIAGNOSIS: Lower back pain POST PROCEDURE DIAGNOSIS: Same MUD LOGGER: Dahlia Koehler M.D. PATIENT EXPERIENCE COORDINATOR: Agustin Lombardi M.D ANESTHESIA: Local anesthesia [...] for injection of intrathecal contrast material. 04/02/2018 [facility] Spine lumbar 2 or 3 views DX [...] L2-3 appear unchanged with adequate alignment. 11/21/2017 [facility] Spine lumbar single view DX EXAM: XR [...] alignment of L2-L3 posterior fixation hardware. 11/19/2017 [facility] Spine lumbar myelogram CT EXAM: MYELOGRAM LUMBAR [...] compressive effect on the nerve roots. 10/24/2017 [facility] Spine lumbar myelogram DX EXAM: MYELOGRAM LUMBAR [...] compressive effect on the nerve roots. 10/24/2017 [facility] Consultation Notes No Data Provided for This Section Discharge Summaries No Data Provided for This Section History and Physicals No Data Provided for This Section Vital Signs Vital Sign Value Date Comments Source Respitory Rate 17 04/02/2018 [facility] Heart Rate 64 04/02/2018 [facility] Systolic (mm Hg) 119 04/02/2018 [facility] Diastolic (mm Hg) 63 04/02/2018 [facility] Heart Rate 62 04/02/2018 [facility] Respitory Rate 18 04/02/2018 [facility] Systolic (mm Hg) 117 04/02/2018 [facility] Diastolic (mm Hg) 62 04/02/2018 [facility] Respitory Rate 18 04/02/2018 [facility] Systolic (mm Hg) 108 04/02/2018 [facility] Diastolic (mm Hg) 61 04/02/2018 [facility] Heart Rate 65 04/02/2018 [facility] BMI Calculated 28.47 04/02/2018 [facility] Weight 90 04/02/2018 [facility] Height 177.8 cm 04/02/2018 [...] [facility] Systolic (mm Hg) 142 11/22/2017 [facility] Diastolic (mm Hg) 79 11/22/2017 [facility] BMI Calculated 33.5 11/19/2017 [facility] Weight 105.909 11/19/2017 [facility] Height 177.8 cm 11/06/2017 [facility] Respitory Rate 18 10/24/2017 [facility] Heart Rate 75 10/24/2017 [facility] Systolic (mm Hg) 127 10/24/2017 [facility] Diastolic (mm Hg) 65 10/24/2017 [facility] Systolic (mm Hg) 120 10/24/2017 [facility] Diastolic (mm Hg) 72 10/24/2017 [facility] Heart Rate 81 10/24/2017 [facility] Respitory Rate 18 10/24/2017 [facility] Heart Rate 86 10/24/2017 [facility] Weight 236 06/17/2013 [facility] Height [...] [facility] Heart Rate 72 01/17/2013 [facility] Diastolic (mm Hg) 78 01/17/2013 [facility] Systolic (mm Hg) 130 01/17/2013 [facility] Encounters Location Location Details Encounter Type Encounter Number Reason For Visit Attending Provider ADM Date DC Date Status Source [facility] ENROLLMENT COORDINATOR- FATIGUE [id number] 01/17/2013 01/17/2013 [facility] ENROLLMENT COORDINATOR- FATIGUE [id number] 01/17/2013 01/17/2013 [facility] ENROLLMENT COORDINATOR- FATIGUE [id number] 01/17/2013 01/17/2013 [facility] ENROLLMENT COORDINATOR- FATIGUE [id number] 01/17/2013 01/17/2013 [facility] ENROLLMENT COORDINATOR- FATIGUE [id number] 01/17/2013 01/17/2013 [facility] ENROLLMENT COORDINATOR- FATIGUE [id number] 01/17/2013 01/17/2013 [facility] ENROLLMENT COORDINATOR- FATIGUE [id number] 01/17/2013 01/17/2013 [facility] [facility] ENROLLMENT COORDINATOR- FATIGUE [id number] 01/17/2013 01/17/2013 [facility] ENROLLMENT COORDINATOR- FATIGUE [id number] 01/17/2013 01/17/2013 [facility] ENROLLMENT COORDINATOR- FATIGUE [id number] 01/17/2013 01/17/2013 [facility] ENROLLMENT COORDINATOR- FATIGUE [id number] 01/17/2013 01/17/2013 [facility] Unknown [id number] 02/10/2013 02/10/2013 [facility] Unknown [id number] 02/10/2013 02/10/2013 [facility] Unknown [id number] 02/10/2013 02/10/2013 [facility] Unknown [id number] 02/10/2013 02/10/2013 [facility] Unknown [id number] 02/10/2013 02/10/2013 [facility] Unknown [id number] 02/10/2013 02/10/2013 [facility] Unknown [id number] 02/10/2013 02/10/2013 [facility] Unknown [id number] 02/10/2013 02/10/2013 [facility] Unknown [id number] 02/10/2013 02/10/2013 [facility] Unknown [id number] 02/10/2013 02/10/2013 [facility] Unknown [id number] 02/10/2013 02/10/2013 [facility] Unknown [id number] 02/10/2013 02/10/2013 [facility] cough [id number] 02/13/2013 02/13/2013 [facility] cough [id number] 02/13/2013 02/13/2013 [facility] cough [id number] 02/13/2013 02/13/2013 [facility] cough [id number] 02/13/2013 02/13/2013 [facility] cough [id number] 02/13/2013 02/13/2013 [facility] cough [id number] 02/13/2013 02/13/2013 [facility] cough [id number] 02/13/2013 02/13/2013 [facility] cough [id number] 02/13/2013 02/13/2013 [facility] cough [id number] 02/13/2013 02/13/2013 [facility] cough [id number] 02/13/2013 02/13/2013 [facility] cough [id number] 02/13/2013 02/13/2013 [facility] Unknown [id number] 05/09/2013 05/09/2013 [facility] Unknown [id number] 05/09/2013 05/09/2013 [facility] Unknown [id number] 05/09/2013 05/09/2013 [facility] Unknown [id number] 05/09/2013 05/09/2013 [facility] Unknown [id number] 05/09/2013 05/09/2013 [facility] Unknown [id number] 05/09/2013 05/09/2013 [facility] Unknown [id number] 05/09/2013 05/09/2013 [facility] Unknown [id number] 05/09/2013 05/09/2013 [facility] Unknown [id number] 05/09/2013 05/09/2013 [facility] Heart racing [id number] 06/17/2013 06/17/2013 [facility] Heart racing [id number] 06/17/2013 06/17/2013 [facility] racing [id number] 06/17/2013 06/17/2013 [facility] racing [id number] 06/17/2013 06/17/2013 [facility] racing [id number] 06/17/2013 06/17/2013 [facility] Heart racing [id number] 06/17/2013 06/17/2013 [facility] Heart racing [id number] 06/17/2013 06/17/2013 [facility] Unknown [id number] 06/18/2013 06/18/2013 [facility] Unknown [id number] 06/18/2013 06/18/2013 [facility] Unknown [id number] 06/18/2013 06/18/2013 [facility] Unknown [id number] 06/18/2013 06/18/2013 [facility] Unknown [id number] 06/18/2013 06/18/2013 [facility] Unknown [id number] 06/18/2013 06/18/2013 [facility] Unknown [id number] 06/18/2013 06/18/2013 [facility] Unknown [id number] 06/18/2013 06/18/2013 [facility] sick [id number] 06/23/2013 06/23/2013 [facility] sick [id number] 06/23/2013 06/23/2013 [facility] sick [id number] 06/23/2013 06/23/2013 [facility] sick [id number] 06/23/2013 06/23/2013 [facility] sick [id number] 06/23/2013 06/23/2013 [facility] sick [id number] 06/23/2013 06/23/2013 [facility] sick [id number] 06/23/2013 06/23/2013 [facility] sick [id number] 06/26/2013 06/26/2013 [facility] sick [id number] 06/26/2013 06/26/2013 [facility] sick [id number] 06/26/2013 06/26/2013 [facility] sick [id number] 06/26/2013 06/26/2013 [facility] sick [id number] 06/26/2013 06/26/2013 [facility] fell on ribs [id number] 09/23/2013 09/23/2013 [facility] fell on ribs [id number] 09/23/2013 09/23/2013 [facility] fell on ribs [id number] 09/23/2013 09/23/2013 [facility] fell on ribs [id number] 09/23/2013 09/23/2013 [facility] Unknown [id number] 11/12/2013 11/12/2013 [facility] Unknown [id number] 11/12/2013 11/12/2013 [facility] Unknown [id number] 11/12/2013 11/12/2013 [facility] REFILL [id number] 11/25/2013 11/25/2013 [facility] REFILL [id number] 11/25/2013 11/25/2013 [facility] REFILL [id number] 11/25/2013 11/25/2013 [facility] Unknown [id number] 01/12/2014 01/12/2014 [facility] Outpatient [id number] [facility] 10/24/2017 10/25/2017 [facility] Inpatient [id number] [facility] 11/19/2017 11/22/2017 [facility] Pre[facility] [id number] [facility] 02/07/2018 02/07/2018 [facility] Outpatient [id number] [facility] 04/02/2018 04/03/2018 [facility] Dis[facility] Inpatient [id number] JOHANNA CHRISTINE MD 07/25/2018 07/27/2018 [facility] Departed Emergency Room [id number] VU CHOI MD 01/09/2019 01/09/2019 [facility] Procedures Procedure Code Date Perfomer Comments Source Computed tomography of brain without radiopaque contrast [id number] 07/25/2018 [facility] Computed tomography of cervical spine without contrast [id number] 07/25/2018 [facility] Myelography via lumbar injection, including radiological supervision and interpretation; lumbosacral [id number] 04/02/2018 [facility] Spinal fusion [id number] 11/19/2017 [facility] Myelography via lumbar injection, including radiological supervision and interpretation; lumbosacral 50854 10/24/2017 [facility] Exploratory lumbar laminectomy [id number] 06/18/1984 [facility] Cataract extraction and insertion of intraocular lens [id number] [facility] Lumbar spinal fusion [id number] [facility] Rotator cuff repair [id number] [facility] Exploratory lumbar laminectomy 872917167 [facility] Assessment and Plan Assessment and Plan Date Source Extracted from:Title: Progress Note Author: Vu Diane DO Date: 11/22/17 67 year old with T2DM, a-fib, HTN, GERD, depression who presented for planned L2-[address] Finnye. 2.Lumbar stenosis s/p L2-3 PSF. management per [...] fusion. 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 Patient expressed understanding andall questions answered. [facility] Hospitalist Consult Please [id number] any questions 11/22/2017 [facility] Plan of Care Plan of Care Date Source Discharge Date 01/09/19 10:32pm Disposition HOME, SELF-CARE Condition at Discharge Stable Instructions/Education Provided Rehman Catheter Care Urinary Tract Infection - Men Forms Provided Work/School Excuse Prescriptions See Medication Section Referrals ADOLFO GERMAIN MD Order Date: Call for an appointment Address: [address] [place] [id number] Additional Instructions/Education - You have a UTI and penile pain secondary to rehman catheter - Take medications as prescribed - Follow up with Urologist 01/09/2019 [facility] Discharge Date 07/27/18 5:36pm Disposition HOME, SELF-CARE Instructions/Education Provided Pyelonephritis Prescriptions See Medication Section Referrals ALEENA FRANCIS MD (Endocrinology) Entered Date: 07/27/2018 4:48pm Address: [address], [facility] [address] [place], [place] [id number] Additional Instructions/Education RESUME DIET AND ACTIVITIES DIRECTED. FOLLOW UP WITH YOUR PRIMARY CARE PROVIDER DIRECTED; FOLLOW UP WITH DR. FRANCIS IN 1-2 WEEKS. 07/27/2018 [facility] Social History Social History Date Source Smoking Status Start Date Stop Date Former smoker 01/09/2019 [facility] Social History TypeResponse Exercise 1 Alcohol Past Smoking Status Never smoker; Exposure to Tobacco Smoke None; Cigarette Smoking Last 365 Days No; Reg Smoking Cessation Counseling No entered on: 11/19/17 1Denies sob on exertion 11/06/2017 [facility] Social History ElementQualifiersDate Reported Ethnicity . Status , Is andorran your primary language? Yes September 23, 2013 [...] Status: No September 23, 2013 Occupation: employed. [employer] September 23, 2013 09/23/2013 [facility] Mother lung cancer Jun 26, 2013 07/10/2013 [facility] QualifierDescriptionCommentDate [...] Mother lung cancer Jan 17, 2013 04/05/2013 [facility] Advance Directives Order Name Results Value Date Source Advance Directives Advance Directives Directive Response Recorded Date/Time Does the patient have an advance directive? No 07/25/18 6:47am If yes, is advance directive on file with [facility]? No 07/25/18 6:47am If not on file with [facility] will patient provide a copy? No 07/25/18 6:47am 01/09/2019 [facility] Advance Directives Advance Directives Directive Response Recorded Date/Time Does the patient have an advance directive? No 07/25/18 6:47am If yes, is advance directive on file with [facility]? No 07/25/18 6:47am If not on file with [facility] will patient provide a copy? No 07/25/18 6:47am Do you have a Directive to Physician? No 07/25/18 4:47am Do you have a Medical Power of Babbitt Spinner? No 07/25/18 4:47am Do you have an [...] rights and responsibilities? Yes 07/25/18 4:47am 07/27/2018 [facility] Functional Status No Data Provided for This Section
[2019-01-22 21:52] LABS: BASOPHILS # (AUTO) 0.1 (0.0-0.1); BASOPHILS % 0.4 % (0.0-1.0); EOSINOPHILS # (AUTO) 0.1 (0.0-0.4); EOSINOPHILS % 0.3 % (0.0-6.0); HEMATOCRIT 43.5 % (38.2-49.6); HEMOGLOBIN 14.8 g/dL (14.0-18.0); LYMPHOCYTES # (AUTO) 1.8 (1.0-3.2); LYMPHOCYTES % 7.1 % (18.0-39.1); MEAN CORPUSCULAR HEMOGLOBIN 30.5 pg (28-32); MEAN CORPUSCULAR VOLUME 89.5 fL (81-99); MONOCYTES # (AUTO) 1.9 (0.2-0.8); MONOCYTES % 7.4 % (4.4-11.3); NEUTROPHILS # (AUTO) 21.3 (2.1-6.9); PLATELET COUNT 257 x10e3/uL (140-360); RED BLOOD COUNT 4.86 x10e6/uL (4.3-5.7); RED CELL DISTRIBUTION WIDTH 13.2 % (11.7-14.4)
[2019-01-22 22:06] LABS: ALANINE AMINOTRANSFERASE 13 IU/L (0-55); ALBUMIN 3.8 g/dL (3.5-5.0); ALBUMIN/GLOBULIN RATIO 0.9 (0.8-2.0); ALKALINE PHOSPHATASE 93 IU/L (40-150); BLOOD UREA NITROGEN 17 mg/dL (7-26); BUN/CREATININE RATIO 19 (6-25); CALCIUM 9.8 mg/dL (8.4-10.2); CARBON DIOXIDE 24 mmol/L (22-29); CHLORIDE 99 mmol/L (98-107); CREATINE KINASE 36 IU/L (30-200); EST GLOMERULAR FILTRATION RATE > 60 ML/MIN (60-); GLUCOSE 105 mg/dL (74-118); SODIUM 135 mmol/L (136-145)
--- NOTE | 2019-01-22 22:21 | Diagnostic Imaging Report ---
Examination: Single AP view of the chest. COMPARISON: 07/25/2018. INDICATION: Chest pain. DISCUSSION: Lines/tubes: None. Lungs: The lungs are mildly hyperinflated. Mild patchy density in the right upper lobe may represent summation of shadows versus focus of infection proper clinical setting. Mild bibasilar subsegmental atelectasis. Pleura: No pleural effusion or pneumothorax. Heart and mediastinum: The heart and the mediastinum are unremarkable. Bones and soft tissues: No acute bony abnormalities. Degenerative changes in the thoracic spine. IMPRESSION: 1. Mild patchy density in the right upper lobe may represent summation of shadows versus focus of infection proper clinical setting. Recommend chest PA and lateral views of patient's condition permits. Signed by: Dr. Dong Quintanilla M.D. on 01/22/2019 10:17 PM
--- NOTE | 2019-01-22 22:41 | Diagnostic Imaging Report ---
History:AMS Comparison studies:CT head Technique: Axial images were obtained from the skull base to the vertex. Coronal and sagittal images reconstructed from the axial data. Intravenous contrast: None Dose modulation, iterative reconstruction, and/or weight based adjustment of the mA/kV was utilized to reduce the radiation dose to as low as reasonably achievable. Findings: Scalp/skull: No abnormalities. Extra-axial spaces: No masses. No fluid collections. Brain sulci: Mildly prominent. Ventricles: Moderate dilation of the lateral and third ventricles without active hydrocephalus. Parenchyma: Scattered hypodensities in the supratentorial white matter are small vessel ischemic changes. No masses, hemorrhage, acute or chronic cortical vascular insults. Sellar/suprasellar region: No abnormalities. Craniocervical junction: Patent foramen magnum. No Chiari one malformation. Incidental findings: Atherosclerotic calcifications in the carotid siphons . Impression: No acute abnormalities. Chronic findings: 1. Moderate ventriculomegaly, stable from previous examination, stable from. 2. Moderate supratentorial white matter small vessel ischemic changes. Signed by: DR Phong Madrigal M.D. on 01/22/2019 10:38 PM
[2019-01-22 23:04] LABS: BILIRUBIN,URINE NEGATIVE (NEGATIVE); CLARITY,URINE CLOUDY (CLEAR); COLOR,URINE YELLOW (YELLOW); KETONES,URINE NEGATIVE (NEGATIVE); LEUKOCYTE ESTERASE ,URINE SMALL (NEGATIVE); NITRITE,URINE POSITIVE (NEGATIVE); PROTEIN,URINE DIPSTICK 2+ (NEGATIVE); URINE UROBILINOGEN 0.2 mg/dL (0.2 - 1)
[2019-01-22 23:27] LABS: BACTERIA,URINE MANY /HPF; EPITHELIAL CELLS,URINE FEW /LPF; WBC,URINE (MAN) >50 /HPF (0-5)
[2019-01-22] MEDS ORDERED: SODIUM CHLORIDE 0.9% 50ML 50 ML ONE (23:31)
[2019-01-22] MEDS ORDERED: IOPAMIDOL 370 MG/ML 200 ML INFUS..BTL INJ ONE (23:31)
[2019-01-23] VITALS (9 sets, daily range): BP systolic 137–179; BP diastolic 63–110
--- OUTSIDE RECORDS SUMMARY | 2019-01-23 00:02 | XMS REPORT | Clinical Summary ---
Author Author [facility] Organization [facility] Address Unknown Phone Unavailable Care Team Providers Care Peanut Salter Name Role Phone Jeremy Olivo MD PCP [...] Date: 09/20/17. Max Daily Amount: 4 tablets 02/07/2018 Discontinued sennosides-docusate Take 1 tablet 30 [...] joint (Primary Dx); Unable to walk 02/07/2018 Hospital General Internal Medicine - Encounter 02/13/2018 after 01/22/2018 Family History Medical History Relation Name Comments [...] MMODE SPECTRAL 12:21 PM CDT COLOR DOPPLER ([id number]) POC GLUCOSE Routine 02/09/2018 10:34 AM CDT [...] LEFT STAT 02/07/2018 1:45 PM CDT after 01/22/2018 Results * MRI Lumbar Spine Wo Contrast [...] possible left L4-L5 subarticular zone disc protrusion. [id number] Procedure Note Hm Interface, Radiology Results Incoming [...] possible left L4-L5 subarticular zone disc protrusion. [id number] Performing Organization Address City/[facility]/Zipcode Phone Number [facility] [address] [place] [address] * POC glucose (02/13/2018 12:17 PM CDT) Only the most recent of 23 results within the time period is included. POC glucose 175 (H) 65 - 99 mg/dL [facility] DEPARTMENT Comment: OF PATHOLOGY [facility] Notified RN AND GENOMIC Meter ID: [id number] MEDICINE Practice Representative: Roger Lopez Specimen Performing Organization Address City/[facility]/Zipcode Phone Number [facility] DEPARTMENT [address] [address] PATHOLOGY AND GENOMIC MEDICINE * XR Chest 1 Vw Portable (02/10/2018 1:30 PM CDT) Specimen Narrative Performed At EXAMINATION:XR CHEST 1 VW [facility] CLINICAL H[facility]:cough COMPARISON: February 07, 2018 . IMPRESSION: 1.Heart size and mediastinum are prominent. 2.The right hemidiaphragm is slightly elevated. Lungs are clear. 3.No pneumothorax. 4.Evaluation is stable relative to prior. [facility]-[id number] Procedure Note Interface, Radiology Results Incoming - 02/10/2018 1:43 PM CDT EXAMINATION: XR CHEST 1 VW PORTABLE CLINICAL HISTORY: cough COMPARISON: February 07, 2018 . IMPRESSION: 1. Heart size and mediastinum are prominent. 2. The right hemidiaphragm is slightly elevated. Lungs are clear. 3. No pneumothorax. 4. Evaluation is stable relative to prior. [facility]-[id number] Performing Organization Address [facility]/Zipcode Phone Number [facility] [address] [place] [address] * CBC hemogram (02/10/2018 5:30 AM CDT) WBC 10.64 4.50 - 11.00 k/uL [facility] DEPARTMENT OF PATHOLOGY AND GENOMIC MEDICINE RBC 4.13 (L) 4.40 - 6.00 m/uL [facility] DEPARTMENT OF PATHOLOGY AND GENOMIC MEDICINE HGB 12.0 (L) 14.0 - 18.0 g/dL [facility] DEPARTMENT OF PATHOLOGY AND GENOMIC MEDICINE HCT 37.4 (L) 41.0 - 51.0 % [facility] DEPARTMENT OF PATHOLOGY AND GENOMIC MEDICINE MCV 90.6 82.0 - 100.0 fL [facility] DEPARTMENT OF PATHOLOGY AND GENOMIC MEDICINE MCH 29.1 27.0 - 34.0 pg [facility] DEPARTMENT OF PATHOLOGY AND GENOMIC MEDICINE MCHC 32.1 31.0 - 37.0 g/dL [facility] DEPARTMENT OF PATHOLOGY AND GENOMIC MEDICINE RDW - SD 44.1 37.0 - 55.0 fL [facility] DEPARTMENT OF PATHOLOGY AND GENOMIC MEDICINE MPV 9.7 8.8 - 13.2 fL [facility] DEPARTMENT OF PATHOLOGY AND GENOMIC MEDICINE Platelet count 251 150 - 400 k/uL [facility] DEPARTMENT OF PATHOLOGY AND GENOMIC MEDICINE Nucleated RBC 0.00 /100 WBC [facility] DEPARTMENT OF PATHOLOGY AND GENOMIC MEDICINE Specimen Blood Performing Organization Address City/[facility] [place] [address] PATHOLOGY AND [employer] MEDICINE * Estimated GFR (02/10/2018 4:00 AM CDT) Only the most recent of 3 results within the time period is included. Pathologist [facility] GFR Non Af Amer >90 mL/min/1.73 m2 [facility] DEPARTMENT OF PATHOLOGY AND GENOMIC MEDICINE GFR Af Amer >90 mL/min/1.73 m2 [facility] DEPARTMENT Comment: OF PATHOLOGY Chronic kidney [...] specimen Performing Organization Address City/State/Zipcode Phone Number [facility] DEPARTMENT OF [address] [place], [place] [id number] PATHOLOGY AND [employer] [facility] * Basic metabolic panel (02/10/2018 4:00 AM CDT) Only the most recent of 2 results within the time period is included. Sodium 138 135 - 148 mEq/L [facility] DEPARTMENT OF PATHOLOGY AND GENOMIC MEDICINE Potassium 4.0 3.5 - 5.0 mEq/L [facility] DEPARTMENT OF PATHOLOGY AND GENOMIC MEDICINE Chloride 99 98 - 112 mEq/L [facility] DEPARTMENT OF PATHOLOGY AND GENOMIC MEDICINE CO2 26 24 - 31 mEq/L [facility] DEPARTMENT OF PATHOLOGY AND GENOMIC MEDICINE Anion gap 13@ANIO 7 - 15 mEq/L [facility] DEPARTMENT OF PATHOLOGY AND GENOMIC MEDICINE BUN 14 8 - 23 mg/dL [facility] DEPARTMENT OF PATHOLOGY AND GENOMIC MEDICINE Creatinine 0.7 0.7 - 1.2 mg/dL [facility] DEPARTMENT OF PATHOLOGY AND GENOMIC MEDICINE Glucose 71 65 - 99 mg/dL [facility] DEPARTMENT OF PATHOLOGY AND GENOMIC MEDICINE Calcium 9.3 8.8 - 10.2 mg/dL [facility] DEPARTMENT OF PATHOLOGY AND GENOMIC MEDICINE Specimen Plasma specimen Performing Organization Address City/State/Zipcode Phone Number [facility] DEPARTMENT OF [address] [place] [address] PATHOLOGY AND GENOMIC MEDICINE * Echocardiogram complete w contrast and 3D if needed (02/09/2018 12:21 PM CDT) Specimen Narrative Performed At [facility] Echocardiography Report [address] [place] [address] Pat.Name:VU ALVAREZ Pat.ID:[id number] St.Date: 02/09/2018 Refer.MD:RUDI KAHN MD Exam Time: 11:06:00 AM Study Type:Routine Echo Height:70inWeight:197lb BSA: 2.08 m2 DOBAge:1950,67Y Sex: MALEBP:146/78 HR:69 bpm Sonogrphr: AUDREY Herrera Pat. Stat.:Inpatient Room:[facility] Study Status:Final Echo Event ID:[id number] Order ID:[id number] Reason for Study:Atrial fibrillation History / Clinical:Atrial [...] RAPof 5 mmHg. MEASUREMENTS: 2D Parasternal [place] LVOT 2.3 cmLA Ds2.8 cm LVIDd4.4 cmIndex2.1 cm/m Ao Rtd 3.7 cm Index1.8 cm/m LVIDs2.9 cm LV Ahnq373.8 g(122-174) LV%fs 33.8 % LVM Index 83.6 g/m2 IVSd 1.3 cmRWT0.4 LVPWd0.9 cm LA Sng Plane LA Area 14 cm2(8.8-23.4) LA Vol32.9 ml Index15.8 ml/m LA LngAx 4.5 cm Signed 02/09/2018 07:49 PM Lyndsey Sy M.D. Procedure Note Interface, Radiology Results In - 02/09/2018 7:50 PM CDT Echocardiography Report [address] [address] [facility].Name: VU ALVAREZ Obdulia Vasquez.ID: [id number] .Date: 02/09/2018 Refer.MD: RUDI KAHN MD Exam Time: 11:06:00 AM Study Type:Routine Echo Height: 70in Weight: 197lb BSA: 2.08 m2 Age: 2 1950,67Y Sex: MALE BP: 146/78 HR: 69 bpm Sonogrphr: AUDREY Herrera Pat. Stat.:Inpatient Room: [facility] Study Status:Final Echo Event ID:[id number] Order ID: [id number] Reason for Study:Atrial fibrillation History / Clinical:Atrial [...] of 5 mmHg. MEASUREMENTS: 2D Parasternal [place] LVOT 2.3 cm LA Ds 2.8 cm [...] PM Lyndsey Sy M.D. Performing Organization Address [facility] Phone Number [employer] [address] [place] [address] * Cv ecg exercise stress (no imaging) (02/09/2018 9:29 AM CDT) Resting HR 67 [facility] MUSE Resting BP 164 [facility] MUSE Peak MET 1.0 [facility] MUSE Achieved Protocol Name HAYDEN [facility] MUSE Time in 00:01:00 [facility] MUSE Exercise Phase Max Systolic BP 164 [facility] MUSE Max Diastolic 79 H MUSE BP Max Heart Rate 83 H MUSE Max Predicted 151 [facility] MUSE Heart Rate Target HR (220 - Age)*100% [facility] MUSE Formula Test Indication A-FIB [facility] MUSE Stress Test -Waveform interpreted in [facility] MUSE Impression report associated with image study. No interpretation is provided as part of this Stress ECG report.-Electronically Signed By Marian MANUEL, [facility] ([id number]), book editor Jocy Russo ([id number]) on 02/09/2018 10:15:57 AM Target HR 128.35 bpm [facility] MUSE Specimen Performing Organization Address [facility] Phone Number [facility] [employer] [address] [place] [address] * Nm myocardial perfusion (02/09/2018 9:29 AM CDT) Specimen Narrative Performed At [facility] Nuclear Cardiology and Cardiac CT [address] [place] [address] Myocardial Perfusion Imaging Report Stress ECG tracings are available in [employer] and [employer] All ECG interpretations are included in this report Pat.Name:Cortez Alvarez.ID:[id number] .Date: 02/09/2018 Refer.MD:RUDI KAHN MD Exam Time: 8:51:00 AM Study Type:Myocardial Perfusion Imaging Height:62inBSA: 1.9 m2 DOBAge:1950,67YSex: MALE BP:164/79HR: 67 bpm HCT: 38.1 % Nuclear Tech:TORI Whittington, IRINA WalshMT Pat. Stat.:Inpatient Room:A845 Nuclear Event ID:[id number] Order ID:[id number] Reason for Study:Atrial fibrillation*, Pre-op evaluation non-coronary [...] PM CDT Nuclear Cardiology and Cardiac CT [address] [place] [address] Myocardial Perfusion Imaging Report Stress ECG tracings are available in [employer], [employer] and [employer] All ECG interpretations are included in this report Pat.Name: Vu Alvarez Pat.ID: [id number] St.Date: 02/09/2018 Refer.MD: RUDI KAHN MD Exam Time: 8:51:00 AM Study Type:Myocardial Perfusion Imaging Height: 62in BSA: 1.9 m2 Age: 2 1950,67Y Sex: MALE BP: 164/79 HR: 67 bpm HCT: 38.1 % Nuclear Tech:TORI Whittington, TORI Walsh Pat. Stat.:Inpatient Room: A845 Nuclear Event ID:[id number] Order ID: [id number] Reason for Study:Atrial fibrillation*, Pre-op evaluation non-coronary [...] to pharmacological stress Signed 02/09/2018 12:52:57 PM aKushik Fonseca MD Revised Performing Organization Address City/State/Zipcode Phone Number [facility] [address] [place] [address] * CBC with platelet and differential (02/08/2018 5:05 AM CDT) Only the most recent of 2 results within the time period is included. WBC 12.45 (H) 4.50 - 11.00 k/uL [facility] DEPARTMENT OF PATHOLOGY AND GENOMIC MEDICINE RBC 4.35 (L) 4.40 - 6.00 m/uL [facility] DEPARTMENT OF PATHOLOGY AND GENOMIC MEDICINE HGB 12.5 (L) 14.0 - 18.0 g/dL [facility] DEPARTMENT OF PATHOLOGY AND GENOMIC MEDICINE HCT 38.1 (L) 41.0 - 51.0 % [facility] DEPARTMENT OF PATHOLOGY AND GENOMIC MEDICINE MCV 87.6 82.0 - 100.0 fL [facility] DEPARTMENT OF PATHOLOGY AND GENOMIC MEDICINE MCH 28.7 27.0 - 34.0 pg [facility] DEPARTMENT OF PATHOLOGY AND GENOMIC MEDICINE MCHC 32.8 31.0 - 37.0 g/dL [facility] DEPARTMENT OF PATHOLOGY AND GENOMIC MEDICINE RDW - SD 43.1 37.0 - 55.0 fL [facility] DEPARTMENT OF PATHOLOGY AND GENOMIC MEDICINE MPV 9.4 8.8 - 13.2 fL [facility] DEPARTMENT OF PATHOLOGY AND GENOMIC MEDICINE Platelet count 256 150 - 400 k/uL [facility] DEPARTMENT OF PATHOLOGY AND GENOMIC MEDICINE Nucleated RBC 0.00 /100 WBC [facility] DEPARTMENT OF PATHOLOGY AND GENOMIC MEDICINE Neutrophils 62.2 39.0 - 69.0 % [facility] DEPARTMENT OF PATHOLOGY AND GENOMIC MEDICINE Lymphocytes 23.2 (L) 25.0 - 45.0 % [facility] DEPARTMENT OF PATHOLOGY AND GENOMIC MEDICINE Monocytes 12.2 (H) 0.0 - 10.0 % [facility] DEPARTMENT OF PATHOLOGY AND GENOMIC MEDICINE Eosinophils 1.1 0.0 - 5.0 % [facility] DEPARTMENT OF PATHOLOGY AND GENOMIC MEDICINE Basophils 0.7 0.0 - 1.0 % [facility] DEPARTMENT OF PATHOLOGY AND GENOMIC MEDICINE Immature 0.6Comment: "Immature 0.0 - 1.0 % [facility] DEPARTMENT granulocytes granulocytes" (promyelocytes, OF PATHOLOGY myelocytes, metamyelocytes) AND GENOMIC MEDICINE Specimen Blood Performing Organization Address City/[facility]/Zipcode Phone Number [facility] DEPARTMENT OF [address] [place] [address] PATHOLOGY AND GENOMIC MEDICINE * ECG 12 lead (02/07/2018 10:21 PM CDT) Ventricular 84 [facility] MUSE rate Atrial rate 84 [facility] MUSE UT interval 214 [facility] MUSE QRSD interval 94 [facility] MUSE QT interval 370 [facility] MUSE QTC interval 437 [facility] MUSE P axis 1 37 [facility] MUSE QRS axis 1 4 [facility] MUSE T wave axis 83 [facility] MUSE EKG impression Sinus rhythm with 1st degree [facility] MUSE AV block-Nonspecific T wave abnormality-Abnormal ECG-In automated comparison with ECG of 29-DEC-2017 15:42,-Nonspecific T wave abnormality, worse in Anterior leads- Specimen Performing Organization Address City/[facility] Phone Number [facility] [address] [place] [address] * XR Chest 1 Vw (02/07/2018 6:35 [...] identified. No acute osseous abnormalities are visualized. [facility]-[id number] Procedure Note Interface, Radiology Results Incoming - 02/07/2018 6:40 [...] identified. No acute osseous abnormalities are visualized. [facility]-[id number] Performing Organization Address City/State/Zipcode Phone Number [facility] [address] [place] [address] * CT Pelvis Wo Contrast (02/07/2018 4:22 [...] OA. 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 Distended urinary bladder consider [place]. Constipation and/or fecal impaction. Disimpaction recommended to avoid stercoral colitis. [facility]-[id number] Procedure Note Hm Interface, Radiology Results Incoming - 02/07/2018 5:12 [...] OA. 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 Distended urinary bladder consider [place]. Constipation and/or fecal impaction. Disimpaction recommended to avoid stercoral colitis. [facility]-[id number] Performing Organization Address [facility] [place] [address] * Partial thromboplastin time, activated (02/07/2018 1:56 PM CDT) PTT 30.2 23.0 - 36.0 sec [facility] DEPARTMENT Comment: OF PATHOLOGY PTT therapeutic range for [facility] GENOMIC unfractionated heparin is MEDICINE 61.0-112.0 seconds which corresponds to Anti-Xa 0.3-0.7 U/ml. Specimen Blood Performing Organization Address [facility] [place] [address] PATHOLOGY AND [facility] * Prothrombin time with INR (02/07/2018 1:56 PM CDT) Pathologist [facility] Prothrombin 13.9 12.0 - 15.0 sec [facility] DEPARTMENT time OF PATHOLOGY AND GENOMIC MEDICINE INR 1.1 [facility] DEPARTMENT Comment: OF PATHOLOGY The International Normalized AND GENOMIC Ratio (INR) is a therapeutic MEDICINE monitoring tool for patients who are stable on oral anticoagulant therapy. An INR of 2.0-3.0 is suggested for deep vein thrombosis/pulmonary embolism. Specimen Blood Performing Organization Address [facility] Phone Number [facility] [place] [address] PATHOLOGY AND GENOMIC MEDICINE * Comprehensive metabolic panel (02/07/2018 1:56 PM CDT) Sodium 137 135 - 148 mEq/L [facility] DEPARTMENT OF PATHOLOGY AND GENOMIC MEDICINE Potassium 4.4 3.5 - 5.0 mEq/L [facility] DEPARTMENT OF PATHOLOGY AND GENOMIC MEDICINE Chloride 97 (L) 98 - 112 mEq/L [facility] DEPARTMENT OF PATHOLOGY AND GENOMIC MEDICINE CO2 23 (L) 24 - 31 mEq/L [facility] DEPARTMENT OF PATHOLOGY AND GENOMIC MEDICINE Anion gap 17@ANIO (H) 7 - 15 mEq/L [facility] DEPARTMENT OF PATHOLOGY AND GENOMIC MEDICINE BUN 15 8 - 23 mg/dL [facility] DEPARTMENT OF PATHOLOGY AND GENOMIC MEDICINE Creatinine 0.7 0.7 - 1.2 mg/dL [facility] DEPARTMENT OF PATHOLOGY AND GENOMIC MEDICINE Glucose 189 (H) 65 - 99 mg/dL [facility] DEPARTMENT OF PATHOLOGY AND GENOMIC MEDICINE Calcium 9.4 8.8 - 10.2 mg/dL [facility] DEPARTMENT OF PATHOLOGY AND GENOMIC MEDICINE Protein 7.2 6.3 - 8.3 g/dL [facility] DEPARTMENT Comment: OF PATHOLOGY [place] AND GENOMIC 4.6-7.0 g/dL MEDICINE 1 week 4.4-7.6 g/dL 7 months-1year 5.1-7.3 g/dL 1-2 years5.6-7 .5 g/dL >3 years6.0-8 .0 g/dL 18-150 6.3-8.3 g/dL Albumin 3.5 3.5 - 5.0 g/dL [facility] DEPARTMENT OF PATHOLOGY AND GENOMIC MEDICINE A/G ratio 0.9 0.7 - 3.8 [facility] DEPARTMENT OF PATHOLOGY AND GENOMIC MEDICINE Alkaline 102 40 - 129 U/L [facility] DEPARTMENT phosphatase OF PATHOLOGY AND GENOMIC MEDICINE AST 23 10 - 50 U/L [facility] DEPARTMENT OF PATHOLOGY AND GENOMIC MEDICINE ALT 22 5 - 50 U/L [facility] DEPARTMENT OF PATHOLOGY AND GENOMIC MEDICINE Total bilirubin 0.3 0.0 - 1.2 mg/dL [facility] DEPARTMENT OF PATHOLOGY AND GENOMIC MEDICINE Specimen Plasma specimen Performing Organization Address City/State/Zipcode Phone Number [facility] DEPARTMENT OF [address] [place] [address] PATHOLOGY AND GENOMIC MEDICINE * XR Pelvis [...] in the rectosigmoid. No visible acute fracture. [facility]-[id number] Procedure Note Interface, Radiology Results Incoming - 02/07/2018 2:19 PM CDT EXAMINATION: XR PELVIS 1 OR 2 VW INDICATION: fall at 31m this morning r o trauma COMPARISON: None IMPRESSION: A single frontal view of the pelvis was obtained. Limited evaluation of the sacrum and pubic body secondary to large amount of stool in the rectosigmoid. No visible acute fracture. [facility]-[id number] Performing Organization Address City/State/Zipcode Phone Number [facility] [address] [place] [address] * XR Hip 2-3 View Left (02/07/2018 1:45 PM CDT) Specimen Narrative Performed At EXAMINATION:XR HIP 2-3 VIEWS LEFT [facility] CLINICAL HISTORY:fall at 31m this morningr o trauma COMPARISON:None. IMPRESSION: 1.The left hip is in normal anatomic alignment. There is no evidence of fracture or dislocation. 2.No radiopaque foreign bodies are seen within the soft tissues. [facility]-[id number] Procedure Note Hm Interface, Radiology Results Incoming - 02/07/2018 1:53 PM CDT EXAMINATION: XR HIP 2-3 VIEWS LEFT CLINICAL HISTORY: fall at 31m this morning r o trauma COMPARISON: None. IMPRESSION: 1. The left hip is in normal anatomic alignment. There is no evidence of fracture or dislocation. 2. No radiopaque foreign bodies are seen within the soft tissues. [facility]-[id number] Performing Organization Address City/[facility] Phone Number [facility] [address] [place] [address] after 01/22/2018 Insurance Type Payer Benefit Subscriber ID Effective Phone Address Plan / Dates Group Medicare MEDICARE MEDICARE xxxxxxxxxxx 2013-P [place], PART A AND resent [place] B Commercial AARP AAR xxxxxxxxxx 2017-P SUPPLEMENT resent Advance Directives Patient has advance care planning documents, and code status on file. For more i nformation, please contact: Gerardo Buchanan [address] [place] [address] Date Inactivated Comments Code Status Date Activated 02/13/2018 8:43 PM Full Code 02/07/2018 7:34 PM Code Status decision reached by: Patient 02/07/2018 7:34 PM Full Code 02/07/2018 7:24 PM Code Status decision reached by: Patient 01/08/2018 9:35 PM Full Code 12/31/2017 6:56 PM Code Status decision reached by: Patient
--- OUTSIDE RECORDS SUMMARY | 2019-01-23 00:03 | XMS REPORT | Continuity of Care Document ---
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 Name Role Phone [facility] Information Exchange Unavailable Unavailable Problems Problem Status Onset Date Classification Date Reported Comments Source M48.062 Active 01/14/2019 [facility] Sacrococcygeal disorders, not elsewhere classified 04/19/2018 10/20/2018 [facility] M48.061, M43.16 Active 03/31/2018 [facility] M48.061, M43.16 BACK PAIN Active 03/31/2018 [facility] M48.061, M43.16 LOW BACK PAIN Active 01/29/2018 [facility] STENOSIS Active 10/31/2017 [facility] M43.16, M48.061 Active 10/16/2017 [facility] MRSA culture positive(Confirmed)2 Active 06/18/2007 Problem 10/20/2018 [facility] Tachycardia Active Diagnosis 06/25/2013 [facility] Asthma1 Active Problem [...] [facility] SPONDYLOLISTHESIS, LUMBAR REGION Active [facility] SPINAL STENOSIS, LUMBAR REGION WITHOUT N Active [facility] Medications Medication Details Route Status Patient Instructions Ordering Provider Order Date Source Insulin Regular, Human (Humulin R) 100 Unit/1 Ml Vial Before Meals Active Lesley 07/27/2018 [facility] Nph, Human Insulin Isophane (Novolin N) 100 Unit/1 Ml Vial Twice A Day Active Lesley 07/27/2018 [facility] Tetracycline Hcl 500 Mg Capsule Twice A Day Active Lesley 07/27/2018 [facility] Insulin Regular, Human (Humulin R) 100 Unit/1 Ml Vial, 25 Unit Sub-Q Before Meals Active 07/27/2018 [facility] Nph, Human Insulin Isophane (Novolin N) 100 Unit/1 Ml Vial, 25 Unit Sub-Q Twice A Day Active 07/27/2018 [facility] Duloxetine Hcl (Cymbalta) 30 Mg Capsule.dr, 60 Mg Oral Daily Active 07/25/2018 [facility] Losartan Potassium 25 Mg Tablet, 25 Mg Peg Tube Daily Active 07/25/2018 [facility] tizanidine 4 MG Oral Capsule [Zanaflex] 4 mg=1 cap, PO, TID, # 40 cap, 0 Refill(s) Active 11/21/2017 [facility] Acetaminophen 325 MG / Hydrocodone Bitartrate 10 MG Oral Tablet [[place] 10/325] 1-2 tab, PO, Q4-6H, PRN Pain, [...] Longer Active 11/20/2017 [facility] sennosides, PENITENTIARY 8.6 mg, 1 tab, Route: PO, Drug [...] mL, Route: IV, Initial Loading Dose: 0.4mg, KAIAKO KURA TUARUA Dose: 0.3 mg, KAIAKO KURA TUARUA Lockout: 15 minutes, Continuous Basal Rate: 0 mg, 4 Hour Limit (In MG): 7, Drug Form: INJ, Continuous, Start date: 11/19/17 11 :20:00 CDT, Duration: 30 day, Stop date: 12/19/17...Notes: (Same as: Dilaudid) conc=0.5 mg/ml Hydromorphone KAIAKO KURA TUARUA Dose: ;Delay: ;Basal: No Longer Active 11/19/2017 [...] day, Stop date: 12/19/17 11:19:00 CDT, 2.31, i6Ojifo: PREMIX IV - Do Not Alter WASTE: [...] not exceed 4gm/day of acetaminophen. (Same as: [place] 325/10) No Longer Active 11/19/2017 [facility] [...] 11:19:00 CDTNotes: (aluminum hydroxide-mag nesium hyd- simethicone [phone]/5ml 30 ml ud GEO) No Longer Active [...] " WASTE: F/P - Black; E - Minervax Trash Bin Stable for 28 days at [...] [facility] Ipratropium Sanders as directed Inhalation Active 0.02 % Inhalation every 4 hours [facility] 06/26/2013 [facility] Norel CS 1 teaspoon Orally Active 10-4-12.5 MG/5ML Orally three times a day (tid) [facility] 06/26/2013 [facility] ProAir HFA 2 puffs as needed Inhalation Active 108 (90 Base) MCG/ACT Inhalation every 4 -6 hrs [facility] 06/23/2013 [facility] Zithromax Z-Landry 2 tablets on the first day, then 1 tablet daily for 4 days Orally Active 250 MG Orally Once a day [facility] 06/23/2013 [facility] Bystolic 1 tablet Orally Active 10 mg Orally Once a day [facility] 06/17/2013 [facility] Cymbalta 1 capsule Orally Active 60 MG Orally Once a day (patient needs to be seen before next refill) [facility] 05/09/2013 [facility] Cymbalta 1 capsule Orally No Longer Active 30 mg Orally Once a day [place] 02/13/2013 [facility] Tramadol HCl 1 tablet as needed Orally Active 50 mg Orally every 6 hrs [place] 02/13/2013 [facility] Cymbalta 1 capsule Orally Active 60 MG Orally Once a day [place] 02/13/2013 [facility] Amlodipine Besylate 1 tablet Orally Active 10 mg Orally Once a day [facility] 02/13/2013 [facility] Novolin N 23 units Subcutaneous Active 100 UNIT/ML Subcutaneous AM and PM [facility] Metformin HCl 2 tablet Orally Active 500 mg Orally Twice a day [facility] Simvastatin 1 tablet Orally No Longer Active 40 mg Orally Once a day [facility] Novolin R 23 units Injection Active 100 UNIT/ML Injection TID with meals [facility] Lisinopril 1 tablet Orally No Longer Active 10 mg Orally Once a day [facility] Metformin HCl TAKE TWO TABLETS BY MOUTH TWICE DAILY NA Active 500 [facility] Amlodipine Besylate TAKE ONE TABLET BY MOUTH EVERY DAY NA Active 10MG [facility] Aspirin 1 tablet Orally Active 325 MG Orally Once a day [facility] Amlodipine Besylate 10 Mg Tablet Daily Active [facility] Aspirin 81 Mg Tab.chew Daily Active [facility] Atorvastatin Calcium 20 Mg Tablet Bedtime Active [facility] Docusate Sodium 100 Mg Capsule Daily Active [facility] Finasteride 5 Mg Tablet Daily Active [facility] Flecainide Acetate 100 Mg Tablet Twice A Day Active [facility] Gabapentin 400 Mg Capsule Four Times Daily Active [facility] Hydrocodone Bit/Acetaminophen ([place] 10-325 Tablet) 1 Each Tablet Every 8 Hours as needed for Pain Active [facility] Metformin Hcl 500 Mg Tablet Twice A Day Active [facility] Morphine Sulfate (Morphine Sulfate Er) 30 Mg Tablet.er Every 12 Hours as needed for Pain Active [facility] Ramipril 5 Mg Capsule Daily Active [facility] Tamsulosin Hcl 0.4 Mg Cap.er.24h Daily Active [facility] Allergies, Adverse Reactions, Alerts Substance Category Reaction Severity Reaction type Status Date Reported Comments Source Carisoprodol Unknown Allergy to Substance Active 07/25/2018 [facility] Lincomycin Unknown Allergy to Substance Active 07/25/2018 [facility] Soma Assertion rash Drug allergy Active [facility] [...] Source Urine color determination YELLOW YELLOW 01/09/2019 [facility] Urine clarity SL CLOUDY CLEAR 01/09/2019 [facility] Specific gravity of Urine by Test strip >=1.030 1.010 - 1.025 01/09/2019 [facility] Urine pH measurement by automated test strip 6 5 - 7 01/09/2019 [facility] Urine leukocyte esterase detection by automated test strip SMALL NEGATIVE 01/09/2019 [facility] Urine nitrite detection by automated test strip NEGATIVE NEGATIVE 01/09/2019 [facility] Urine protein detection by automated test strip 2+ NEGATIVE 01/09/2019 [facility] Urine glucose detection by automated test strip NEGATIVE NEGATIVE 01/09/2019 [facility] Urine ketones detection by automated test strip NEGATIVE NEGATIVE 01/09/2019 [facility] Urine urobilinogen measurement by test strip (mass/volume) 0.2 0.2 - 1 01/09/2019 [facility] Urine total bilirubin detection NEGATIVE NEGATIVE 01/09/2019 [facility] Urine erythrocytes detection 3+ NEGATIVE 01/09/2019 [facility] Automated urine sediment leukocyte count by microscopy (number/high power field) 6-10 0 - 5 01/09/2019 [facility] Erythrocytes detection in urine sediment by light microscopy 21-50 0 - 5 01/09/2019 [facility] Bacteria detection in urine sediment by light microscopy RARE NONE 01/09/2019 [facility] Epithelial cells detection in urine sediment by light microscopy RARE NONE 01/09/2019 [facility] Calcium oxalate crystals detection in urine sediment by light microscopy FEW FEW 01/09/2019 [facility] Capillary blood glucose measurement by glucometer (mass/volume) 213 70 - 120 07/27/2018 [facility] Capillary blood glucose measurement by glucometer (mass/volume) 213 70 - 120 07/27/2018 [facility] Serum or plasma cortisol measurement on morning peak specimen (mass/volume) 15.8 6.2 - 19.4 07/26/2018 [facility] Blood leukocytes automated count (number/volume) 11.30 4.8 - 10.8 07/26/2018 [facility] Blood erythrocytes automated count (number/volume) 4.58 4.3 - 5.7 07/26/2018 [facility] Blood hemoglobin measurement (moles/volume) 13.2 14.0 - 18.0 07/26/2018 [facility] Automated blood hematocrit (volume fraction) 40.7 38.2 - 49.6 07/26/2018 [facility] Automated erythrocyte mean corpuscular volume 88.9 81 - 99 07/26/2018 [facility] Automated erythrocyte mean corpuscular hemoglobin (mass per erythrocyte) 28.8 28 - 32 07/26/2018 [facility] Automated erythrocyte mean corpuscular hemoglobin concentration measurement (mass/volume) 32.4 31 - 35 07/26/2018 [facility] RDW BldCo-Rto 13.1 11.7 - 14.4 07/26/2018 [facility] Automated blood platelet count (count/volume) 352 140 - 360 07/26/2018 [facility] Automated blood segmented neutrophil count as percentage of total leukocytes 61.3 38.7 - 80.0 07/26/2018 [facility] Automated blood lymphocyte count as percentage ot total leukocytes 25.0 18.0 - 39.1 07/26/2018 [facility] Automated blood monocyte count as percentage of total leukocytes 9.2 4.4 - 11.3 07/26/2018 [facility] Automated blood eosinophil count as percentage of total leukocytes 2.5 0.0 - 6.0 07/26/2018 [facility] Automated blood basophil count as percentage of total leukocytes 1.0 0.0 - 1.0 07/26/2018 [facility] IM GRANULOCYTES % 1.0 0.0 - 1.0 07/26/2018 [facility] Automated blood neutrophil count 6.9 2.1 - 6.9 07/26/2018 [facility] Blood lymphocytes count (number/volume) 2.8 1.0 - 3.2 07/26/2018 [facility] Blood monocytes automated count (number/volume) 1.0 0.2 - 0.8 07/26/2018 [facility] Automated blood eosinophil count 0.3 0.0 - 0.4 07/26/2018 [facility] Automated blood basophil count (count/volume) 0.1 0.0 - 0.1 07/26/2018 [facility] Absolute Immature Granulocyte (auto 0.11 0 - 0.1 07/26/2018 [facility] Aspartate Amino Transf (AST/SGOT) 21 5 - 34 07/26/2018 [facility] Serum or plasma alanine aminotransferase measurement (enzymatic activity/volume) 30 0 - 55 07/26/2018 [facility] Serum or plasma protein measurement (mass/volume) 7.2 6.5 - 8.1 07/26/2018 [facility] Serum or plasma albumin measurement (mass/volume) 3.1 3.5 - 5.0 07/26/2018 [facility] Plasma globulin measurement (mass/volume) 4.1 2.3 - 3.5 07/26/2018 [facility] Serum or plasma albumin/globulin mass ratio 0.8 0.8 - 2.0 07/26/2018 [facility] Serum or plasma alkaline phosphatase measurement (enzymatic activity/volume) 111 40 - 150 07/26/2018 [facility] Serum or plasma triglyceride measurement (mass/volume) 114 0 - 149 07/26/2018 [facility] Serum or plasma cholesterol measurement (mass/volume) 103 0 - 199 07/26/2018 [facility] Serum or plasma cholesterol in LDL measurement (mass/volume) 48 60 - 130 07/26/2018 [facility] Serum or plasma cholesterol in HDL measurement (mass/volume) 32 40 - 60 07/26/2018 [facility] Hemoglobin A1c Percent 6.8 4.0 - 7.0 07/26/2018 [facility] Serum or plasma magnesium measurement (mass/volume) 2.1 1.3 - 2.1 07/26/2018 [facility] Serum or plasma thyrotropin measurement by detection limit <=0.005 miu/l (units/volume) 0.794 0.350 - 4.940 07/26/2018 [facility] Aspartate Amino Transf (AST/SGOT) 21 5 - 34 07/26/2018 [facility] Serum or plasma alanine aminotransferase measurement (enzymatic activity/volume) 30 0 - 55 07/26/2018 [facility] Serum or plasma protein measurement (mass/volume) 7.2 6.5 - 8.1 07/26/2018 [facility] Serum or plasma albumin measurement (mass/volume) 3.1 3.5 - 5.0 07/26/2018 [facility] Plasma globulin measurement (mass/volume) 4.1 2.3 - 3.5 07/26/2018 [facility] Serum or plasma albumin/globulin mass ratio 0.8 0.8 - 2.0 07/26/2018 [facility] Serum or plasma alkaline phosphatase measurement (enzymatic activity/volume) 111 40 - 150 07/26/2018 [facility] Serum or plasma triglyceride measurement (mass/volume) 114 0 - 149 07/26/2018 [facility] Serum or plasma cholesterol measurement (mass/volume) 103 0 - 199 07/26/2018 [facility] Serum or plasma cholesterol in LDL measurement (mass/volume) 48 60 - 130 07/26/2018 [facility] Serum or plasma cholesterol in HDL measurement (mass/volume) 32 40 - 60 07/26/2018 [facility] Serum or plasma total cholesterol/cholesterol in HDL mass ratio 3.2 3.9 - 4.7 07/26/2018 [facility] Serum or plasma thyrotropin measurement by detection limit <=0.005 miu/l (units/volume) 0.794 0.350 - 4.940 07/26/2018 [facility] Serum or plasma sodium measurement (moles/volume) 137 136 - 145 07/26/2018 [facility] Serum or plasma potassium measurement (moles/volume) 4.1 3.5 - 5.1 07/26/2018 [facility] Serum or plasma chloride measurement (moles/volume) 103 98 - 107 07/26/2018 [facility] Serum or plasma carbon dioxide, total measurement (moles/volume) 25 22 - 29 07/26/2018 [facility] Serum or plasma anion gap 13.1 8 - 16 07/26/2018 [facility] Serum or plasma urea nitrogen measurement (mass/volume) 14 7 - 26 07/26/2018 [facility] Serum or plasma creatinine measurement (mass/volume) 0.80 0.72 - 1.25 07/26/2018 [facility] Serum or plasma urea nitrogen/creatinine mass ratio 18 6 - 25 07/26/2018 [facility] Estimated glomerular filtration rate (GFR) determination > 60 60 07/26/2018 [facility] Glucose measurement 186 74 - 118 07/26/2018 [facility] Serum or plasma calcium measurement (mass/volume) 9.4 8.4 - 10.2 07/26/2018 [facility] Hemoglobin A1c Percent 6.8 4.0 - 7.0 07/26/2018 [facility] Serum or plasma magnesium measurement (mass/volume) 2.1 1.3 - 2.1 07/26/2018 [facility] Serum or plasma total bilirubin measurement (mass/volume) 0.2 0.2 - 1.2 07/26/2018 [facility] Serum or plasma total cholesterol/cholesterol in HDL mass ratio 3.2 3.9 - 4.7 07/26/2018 [facility] Serum or plasma creatine kinase measurement (enzymatic activity/volume) 82 30 - 200 07/25/2018 [facility] Serum or plasma creatine kinase MB measurement (mass/volume) 1.10 0 - 5.0 07/25/2018 [facility] Troponin I measurement by highly sensitive enzyme immunoassay 0.007 0 - 0.300 07/25/2018 [facility] Blood culture NO GROWTH AFTER 5 DAYS, FINAL REPORT 07/25/2018 [facility] Serum or plasma creatine kinase measurement (enzymatic activity/volume) 82 30 - 200 07/25/2018 [facility] Serum or plasma creatine kinase MB measurement (mass/volume) 1.10 0 - 5.0 07/25/2018 [facility] Troponin I measurement by highly sensitive enzyme immunoassay 0.007 0 - 0.300 07/25/2018 [facility] Transitional cells detection in urine sediment by light microscopy MODERATE NONE 07/25/2018 [facility] Urine clarity CLOUDY CLEAR 07/25/2018 [facility] Specific gravity of Urine by Test strip 1.025 1.010 - 1.025 07/25/2018 [facility] Urine pH measurement by automated test strip 6 5 - 7 07/25/2018 [facility] Urine leukocyte esterase detection by dipstick 1+ NEGATIVE 07/25/2018 [facility] Urine nitrite detection POSITIVE NEGATIVE 07/25/2018 [facility] Urine protein measurement by test strip (mass/volume) TRACE NEGATIVE 07/25/2018 [facility] Urine glucose detection NEGATIVE NEGATIVE 07/25/2018 [facility] Urine ketones detection by automated test strip NEGATIVE NEGATIVE 07/25/2018 [facility] Urine urobilinogen measurement by test strip (mass/volume) 0.2 0.2 - 1 07/25/2018 [facility] Urine total bilirubin measurement (mass/volume) NEGATIVE NEGATIVE 07/25/2018 [facility] Urine erythrocytes detection 1+ NEGATIVE 07/25/2018 [facility] Automated urine sediment leukocyte count by microscopy (number/high power field) >50 0 - 5 07/25/2018 [facility] Erythrocytes detection in urine sediment by light microscopy 6-10 0 - 5 07/25/2018 [facility] Bacteria detection in urine sediment by light microscopy MANY NONE 07/25/2018 [facility] Epithelial cells detection in urine sediment by light microscopy FEW NONE 07/25/2018 [facility] Transitional cells detection in urine sediment by light microscopy MODERATE NONE 07/25/2018 [facility] Lactic Acid Level 18.1 4.5 - 19.8 07/25/2018 [facility] Lactic Acid Level 18.1 4.5 - 19.8 07/25/2018 [facility] ELECTROLYTES POC AGAP 16.0 10.0 - 20.0 [...] and Spine Bacterial urine culture Urine Culture [facility] Pathology Reports No Data Provided for This [...] L2- L3 posterior spinal fusion with spine [place] pedicle screws segmental instrumentation, allograft local bone [...] atrophy in the lower lumbar spine. 04/02/2018 [facility] Spine lumbar myelogram DX EXAM: SPINE LUMBAR MYELOGRAM DX Date: 04/02/2018 1334 hours PREPROCEDURE DIAGNOSIS: Lower back pain POST PROCEDURE DIAGNOSIS: Same CARDIOVASCULAR RN: Dahlia Koehler M.D. ACADEMIC ADVISER: Agustin Lombardi M.D ANESTHESIA: Local anesthesia was [...] for injection of intrathecal contrast material. 04/02/2018 [facility] Spine lumbar 2 or 3 [...] L2-3 appear unchanged with adequate alignment. 11/21/2017 [facility] Spine lumbar single view DX [...] alignment of L2-L3 posterior fixation hardware. 11/19/2017 [facility] Spine lumbar myelogram CT EXAM: [...] compressive effect on the nerve roots. 10/24/2017 [facility] Spine lumbar myelogram DX EXAM: [...] compressive effect on the nerve roots. 10/24/2017 [facility] Consultation Notes No Data Provided [...] Provider ADM Date DC Date Status Source [facility] ANATOMIC PATHOLOGY ASSISTANT- FATIGUE [id number] 01/17/2013 01/17/2013 [facility] ANATOMIC PATHOLOGY ASSISTANT- FATIGUE [id number] 01/17/2013 01/17/2013 [facility] ANATOMIC PATHOLOGY ASSISTANT- FATIGUE [id number] 01/17/2013 01/17/2013 [facility] ANATOMIC PATHOLOGY ASSISTANT- FATIGUE [id number] 01/17/2013 01/17/2013 [facility] ANATOMIC PATHOLOGY ASSISTANT- FATIGUE [id number] 01/17/2013 01/17/2013 [facility] ANATOMIC PATHOLOGY ASSISTANT- FATIGUE [id number] 01/17/2013 01/17/2013 [facility] ANATOMIC PATHOLOGY ASSISTANT- FATIGUE [id number] 01/17/2013 01/17/2013 [facility] ANATOMIC PATHOLOGY ASSISTANT- FATIGUE [id number] 01/17/2013 01/17/2013 [facility] ANATOMIC PATHOLOGY ASSISTANT- FATIGUE [id number] 01/17/2013 01/17/2013 [facility] ANATOMIC PATHOLOGY ASSISTANT- FATIGUE [id number] 01/17/2013 01/17/2013 [facility] ANATOMIC PATHOLOGY ASSISTANT- FATIGUE [id number] 01/17/2013 01/17/2013 [facility] Unknown [id number] 02/10/2013 02/10/2013 [facility] Unknown [id number] 02/10/2013 02/10/2013 [facility] Unknown [id number] 02/10/2013 02/10/2013 [facility] Unknown [id number] 02/10/2013 02/10/2013 [facility] Unknown [id number] 02/10/2013 02/10/2013 [facility] Unknown [id number] 02/10/2013 02/10/2013 [facility] Unknown [id number] 02/10/2013 02/10/2013 [facility] Unknown [id number] 02/10/2013 02/10/2013 [facility] Unknown [id number] 02/10/2013 02/10/2013 [facility] Unknown [id number] 02/10/2013 02/10/2013 [facility] Unknown [id number] 02/10/2013 02/10/2013 [facility] Unknown [id number] 02/10/2013 02/10/2013 [facility] cough [id number] 02/13/2013 02/13/2013 [facility] [facility] cough [id number] 02/13/2013 02/13/2013 [facility] cough [id number] 02/13/2013 02/13/2013 [facility] cough [id number] 02/13/2013 02/13/2013 [facility] cough [id number] 02/13/2013 02/13/2013 [facility] cough [id number] 02/13/2013 02/13/2013 [facility] cough [id number] 02/13/2013 02/13/2013 [facility] cough [id number] 02/13/2013 02/13/2013 [facility] cough [id number] 02/13/2013 02/13/2013 [facility] cough [id number] 02/13/2013 02/13/2013 [facility] cough [id number] 02/13/2013 02/13/2013 [facility] Unknown [id number] 05/09/2013 05/09/2013 [facility] Unknown [id number] 05/09/2013 05/09/2013 [facility] Unknown [id number] 05/09/2013 05/09/2013 [facility] Unknown [id number] 05/09/2013 05/09/2013 [facility] Unknown [id number] 05/09/2013 05/09/2013 [facility] Unknown [id number] 05/09/2013 05/09/2013 [facility] Unknown [id number] 05/09/2013 05/09/2013 [facility] Unknown [id number] 05/09/2013 05/09/2013 [facility] Unknown [id number] 05/09/2013 05/09/2013 [facility] Heart racing [id number] 06/17/2013 06/17/2013 [facility] Heart racing [id number] 06/17/2013 06/17/2013 [facility] Heart racing [id number] 06/17/2013 06/17/2013 [facility] Heart racing [id number] 06/17/2013 06/17/2013 [facility] Heart racing [id number] 06/17/2013 06/17/2013 [facility] Heart racing [id number] 06/17/2013 06/17/2013 [facility] Heart racing [id number] 06/17/2013 06/17/2013 [facility] Unknown [id number] 06/18/2013 06/18/2013 [facility] Unknown [id number] 06/18/2013 06/18/2013 [facility] Unknown [id number] 06/18/2013 06/18/2013 [facility] Unknown [id number] 06/18/2013 06/18/2013 [facility] Unknown [id number] 06/18/2013 06/18/2013 [facility] Unknown [id number] 06/18/2013 06/18/2013 [facility] Unknown [id number] 06/18/2013 06/18/2013 [facility] Unknown [id number] 06/18/2013 06/18/2013 [facility] sick [id number] 06/23/2013 06/23/2013 [facility] sick [id number] 06/23/2013 06/23/2013 [facility] sick [id number] 06/23/2013 06/23/2013 [facility] sick [id number] 06/23/2013 06/23/2013 [facility] sick [id number] 06/23/2013 06/23/2013 [facility] sick [id number] 06/23/2013 06/23/2013 [facility] sick [id number] 06/23/2013 06/23/2013 [facility] sick [id number] 06/26/2013 06/26/2013 [facility] sick [id number] 06/26/2013 06/26/2013 [facility] sick [id number] 06/26/2013 06/26/2013 [facility] sick [id number] 06/26/2013 06/26/2013 [facility] sick [id number] 06/26/2013 06/26/2013 [facility] fell on ribs [id number] 09/23/2013 09/23/2013 [facility] fell on ribs [id number] 09/23/2013 09/23/2013 [facility] fell on ribs [id number] 09/23/2013 09/23/2013 [facility] fell on ribs [id number] 09/23/2013 09/23/2013 [facility] Unknown [id number] 11/12/2013 11/12/2013 [facility] Unknown [id number] 11/12/2013 11/12/2013 [facility] Unknown [id number] 11/12/2013 11/12/2013 [facility] REFILL [id number] 11/25/2013 11/25/2013 [facility] REFILL [id number] 11/25/2013 11/25/2013 [facility] REFILL [id number] 11/25/2013 11/25/2013 [facility] Unknown [id number] 01/12/2014 01/12/2014 [facility] Outpatient [id number] [facility] 10/24/2017 10/25/2017 [facility] Inpatient [id number] [facility] 11/19/2017 11/22/2017 [facility] PreReg [id number] [facility] 02/07/2018 02/07/2018 [facility] Orthopedic [facility] Outpatient [id number] [facility] 04/02/2018 04/03/2018 [facility] Discharged Inpatient [id number] JOHANNA CHRISTINE MD 07/25/2018 07/27/2018 [facility] Departed Emergency Room [id number] VU CHOI MD 01/09/2019 01/09/2019 [facility] Procedures Procedure Code Date Perfomer Comments Source Computed tomography of brain without radiopaque contrast [id number] 07/25/2018 [facility] Computed tomography of cervical spine without contrast [id number] 07/25/2018 [facility] Myelography via lumbar injection, including radiological supervision and interpretation; lumbosacral [id number] 04/02/2018 [facility] Spinal fusion [id number] 11/19/2017 [facility] Myelography via lumbar injection, including radiological supervision and interpretation; lumbosacral [id number] 10/24/2017 [facility] Exploratory lumbar laminectomy [id number] 06/18/1984 [facility] Cataract extraction and insertion of intraocular lens [id number] [facility] Lumbar spinal fusion [id number] [facility] Rotator cuff repair [id number] [facility] Exploratory lumbar laminectomy 816690370 [facility] Assessment and Plan Assessment [...] fusion. ASSESSMENT: 1) Acquired lumbar spondylolisthesis (ICD-738.4) (ZJR34-R62.16) 2) Lumbosacral spinal stenosis (ICD-724.02) (SEM27-Q15.07) Additional Assessment L2-L3 spondylolisthesis and stenosis above [...] symptoms(stairs) Baseline EKG showsnormal sinus rhythm Outpatient finance specialist:None Revised cardiac risk index scoreis 0 consistent [...] andall questions answered. [facility] Hospitalist Consult Please [id number] any questions 11/22/2017 [facility] Plan of Care Plan of Care Date Source Discharge Date 01/09/19 10:32pm Disposition HOME, SELF-CARE Condition at Discharge Stable Instructions/Education Provided Rehman Catheter Care Urinary Tract Infection - Men Forms Provided Work/School Excuse Prescriptions See Medication Section Referrals ADOLFO GERMAIN MD Order Date: Call for an appointment Address: [address] [place] [address] Additional Instructions/Education - You have a UTI and penile pain secondary to rehman catheter - Take medications as prescribed - Follow up with Urologist 01/09/2019 [facility] Discharge Date 07/27/18 5:36pm Disposition HOME, SELF-CARE Instructions/Education Provided Pyelonephritis Prescriptions See Medication Section Referrals ALEENA FRANCIS MD (Endocrinology) Entered Date: 07/27/2018 4:48pm Address: [address], [facility] [address] [place], [place] [id number] Additional Instructions/Education RESUME DIET AND ACTIVITIES DIRECTED. FOLLOW UP WITH YOUR PRIMARY CARE PROVIDER DIRECTED; FOLLOW UP WITH DR. FRANCIS IN 1-2 WEEKS. 07/27/2018 [facility] Social History Social History Date Source Smoking Status Start Date Stop Date Former smoker 01/09/2019 [facility] Social History TypeResponse Exercise 1 Alcohol Past Smoking Status Never smoker; Exposure to Tobacco Smoke None; Cigarette Smoking Last 365 Days No; Reg Smoking Cessation Counseling No entered on: 11/19/17 1Denies sob on exertion 11/06/2017 [facility] Social History ElementQualifiersDate Reported Ethnicity . Status , Is liberian your primary language? 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? No 07/25/18 6:47am If not on file with [facility] will patient provide a copy? No 07/25/18 6:47am 01/09/2019 [facility] Advance Directives Advance Directives Directive Response Recorded Date/Time Does the patient have an advance directive? No 07/25/18 6:47am If yes, is advance directive on file with [facility]? No 07/25/18 6:47am If not on file with [facility] will patient provide a copy? No 07/25/18 6:47am Do you have a Directive to Physician? No 07/25/18 4:47am Do you have a Medical Power of Boiler Erector? No 07/25/18 4:47am Do you have an [...] rights and responsibilities? Yes 07/25/18 4:47am 07/27/2018 [facility] Functional Status No Data Provided for This Section
--- NOTE | 2019-01-23 00:05 | NUR ---
Pt admitted to room #298 from home via stretcher, transfered by #3 nurses and #2 techs to bed. Pt requires total care now d/t increase in confusion. Pt alert to name, not answering when asked date, time, and his diagnosis: Sepsis, UTI. Anxious, constantly moving. [place] 16 Fr, yellow, cloudy urine flowing. Last BM 01/21, active BS x4 quads. Full code. Oriented to room. Call cui within reach. Bed low and locked. Bed alarm on. Family at bedside med recon completed.
[2019-01-23] MEDS: SODIUM CHLORIDE 0.9% 1000ML 1,000 ML IV SCH ×4 (01:00→17:51)
[2019-01-23] MEDS: VANCOMYCIN 1GM/NS 250 ML 250 ML IV SCH ×2 (01:00→23:01)
--- NOTE | 2019-01-23 01:12 | Diagnostic Imaging Report ---
EXAM: CT Abdomen and Pelvis WITH contrast INDICATION: Chest pain. Leukocytosis. COMPARISON: None. TECHNIQUE: Abdomen and pelvis were scanned utilizing a multidetector helical scanner from the lung base to the pubic symphysis after administration of IV contrast. Coronal and sagittal reformations were obtained. Routine protocol was performed. Scan was performed when during portal venous phase. IV CONTRAST: 100 cc Isovue-300 ORAL CONTRAST: Water RADIATION DOSE: Total DLP: 878.63 mGy*cm Estimated effective dose: (DLP x 0.015 x size factor) mSv COMPLICATIONS: None FINDINGS: LINES and TUBES: None. LOWER THORAX: Bibasilar dependent atelectasis. HEPATOBILIARY: No focal hepatic lesions. No biliary ductal dilation. GALLBLADDER: There are stones in the gallbladder. No wall thickening. SPLEEN: No splenomegaly. PANCREAS: No focal masses or ductal dilatation. ADRENALS: Mild thickening of the adrenal glands bilaterally. KIDNEYS/URETERS: Kidneys enhance symmetrically. No hydronephrosis. No cystic or solid mass lesions. No stones. GI TRACT: No abnormal distention, wall thickening, or evidence of bowel obstruction. There are diverticula within the colon without evidence of diverticulitis. There is mild stranding about the proximal sigmoid colon diverticula as seen on axial images 76 and 77 colitis. Appendix is normal. PELVIC ORGANS/BLADDER: The prostate is mildly enlarged measuring 5.5 cm in transverse dimension. England catheter within decompressed urinary bladder. LYMPH NODES: No lymphadenopathy. VESSELS: There is mild atherosclerotic disease in the aorta and major arterial branches. PERITONEUM / RETROPERITONEUM: No free air or fluid. BONES: Laminectomy and fusion of L2-S1 with pedicle screws at L2-L3. Lower thoracic dish. SOFT TISSUES: Unremarkable. IMPRESSION: 1. Findings concerning for mild sigmoid diverticulitis in the proper clinical setting. No abscess formation. 2. Cholelithiasis without evidence of cholecystitis or biliary dilatation. Signed by: Dr. Dong Quintanilla M.D. on 01/23/2019 1:09 AM
[2019-01-23] MEDS: CEFEPIME 1GM/NS 0.9% 50 ML 50 ML IV SCH (02:00)
[2019-01-23] MEDS ORDERED: CIPROFLOXACIN 400 MG/D5W 200ML 200 ML IV STA (02:58)
[2019-01-23] MEDS ORDERED: JANUVIA100 MG PO (06:02)
[2019-01-23] MEDS ORDERED: PROPRANOLOL HCL40 MG PO (06:02)
[2019-01-23] MEDS ORDERED: CYMBALTA30 MG PO (06:02)
--- NOTE | 2019-01-23 06:24 | Diagnostic Imaging Report ---
Examination: Single AP view of the chest. COMPARISON: 01/22/2019 at 2157 hours. INDICATION: Chest pain. DISCUSSION: Lines/tubes: None. Lungs: The lungs are mildly hypoinflated with bibasilar subsegmental atelectasis. Right upper lobe patchy density described on the prior examination is no longer visualized. Pleura: No pleural effusion or pneumothorax. Heart and mediastinum: The heart and the mediastinum are unremarkable. Bones and soft tissues: No acute bony abnormalities. Degenerative changes in the thoracic spine. IMPRESSION: 1. Bibasilar subsegmental atelectasis. Signed by: Dr. Dong Quintanilla M.D. on 01/23/2019 6:20 AM
[2019-01-23 06:54] LABS: BASOPHILS # (AUTO) 0.1 (0.0-0.1); BASOPHILS % 0.5 % (0.0-1.0); EOSINOPHILS % 0.2 % (0.0-6.0); HEMATOCRIT 39.6 % (38.2-49.6); HEMOGLOBIN 13.5 g/dL (14.0-18.0); LYMPHOCYTES # (AUTO) 2.3 (1.0-3.2); LYMPHOCYTES % 9.4 % (18.0-39.1); MEAN CORPUSCULAR HGB CONC 34.1 g/dL (31-35); MONOCYTES # (AUTO) 2.2 (0.2-0.8); MONOCYTES % 9.2 % (4.4-11.3); NEUTROPHILS # (AUTO) 19.2 (2.1-6.9); PLATELET COUNT 224 x10e3/uL (140-360); RED CELL DISTRIBUTION WIDTH 13.2 % (11.7-14.4)
[2019-01-23] MEDS: METRONIDAZOLE 750MG/NS 150ML 150 ML IV SCH ×3 (07:00→22:00)
[2019-01-23 07:14] LABS: ALANINE AMINOTRANSFERASE 11 IU/L (0-55); ALBUMIN 3.3 g/dL (3.5-5.0); ALBUMIN/GLOBULIN RATIO 0.9 (0.8-2.0); ALKALINE PHOSPHATASE 79 IU/L (40-150); ANION GAP 14.4 mmol/L (8-16); BLOOD UREA NITROGEN 12 mg/dL (7-26); BUN/CREATININE RATIO 15 (6-25); CARBON DIOXIDE 22 mmol/L (22-29); CHLORIDE 97 mmol/L (98-107); EST GLOMERULAR FILTRATION RATE > 60 ML/MIN (60-); GLUCOSE 152 mg/dL (74-118); POTASSIUM 3.4 mmol/L (3.5-5.1); SODIUM 130 mmol/L (136-145)
--- NOTE | 2019-01-23 07:30 | NUR ---
RECD PT UP IN BED NO DISTRESS NTOED ,NO S/S DISCOMFORT.
[2019-01-23] MEDS ORDERED: DEXTROSE 50% SYRINGE 50 ML IV PRN (07:45)
[2019-01-23] MEDS ORDERED: HYDROCODONE/APAP 10MG-325MG TAB PO PRN (08:30)
[2019-01-23] MEDS: AMLODIPINE BESYLATE 10 MG TAB PO SCH (09:00)
[2019-01-23] MEDS: FINASTERIDE 5 MG TAB PO SCH (09:36)
[2019-01-23] MEDS: GABAPENTIN 400 MG CAP PO SCH ×4 (09:36→21:00)
[2019-01-23] MEDS: DULOXETINE HCL 30 MG DELAYED RELEASE PO SCH (09:36)
[2019-01-23] MEDS: TAMSULOSIN HCL 0.4 MG CAP PO SCH (09:36)
[2019-01-23] MEDS: ASPIRIN 81 MG CHEW TAB PO SCH (09:36)
[2019-01-23] MEDS: METFORMIN HCL 500 MG TAB PO SCH ×2 (10:49→16:56)
[2019-01-23] MEDS: PROPRANOLOL HCL 60 MG ER CAP PO SCH ×2 (10:49→17:00)
[2019-01-23] MEDS: SITAGLIPTIN 100 MG TAB PO SCH (10:50)
[2019-01-23] MEDS: FLECAINIDE ACETATE 100 MG TAB PO SCH ×2 (10:50→17:00)
[2019-01-23] MEDS: NPH, HUMAN INSULIN ISOPHANE 100 UNIT/1 ML 3ML VIAL SQ SCH ×2 (10:51→16:57)
[2019-01-23] MEDS: INSULIN REGULAR, HUMAN 100 UNIT/1 ML 3ML VIAL SQ SCH ×5 (11:30→21:00)
--- NOTE | 2019-01-23 17:51 | NUR ---
PT UP IN BED NO DISTRES NTOED,DENIES PAIN,DR OLVERA HERE
--- NOTE | 2019-01-23 18:43 | Consultation ---
DATE OF CONSULTATION: 01/23/2019 Urologic Consultation Consultation is called by Dr. Ribera. CHIEF COMPLAINT/REASON FOR CONSULTATION: Urinary tract infection and sepsis. HISTORY OF PRESENT ILLNESS: Mr. Alvarez is a 68-year-old male patient, admitted to the hospital with confusion, found to be septic with likely diagnosis of diverticulitis. The patient has a longstanding history of BPH. Denied dysuria. Denied gross hematuria. PAST MEDICAL HISTORY: Notable for atrial fibrillation, hypertension, back pain, multiple back surgeries, hypertension, diabetes mellitus, and BPH. MEDICATIONS: Please see MAR. ALLERGIES: LINCOMYCIN AND SOMA. SOCIAL HISTORY: Denied smoking or drinking. FAMILY HISTORY: Denied urologic stones or malignancies. REVIEW OF SYSTEMS: Noncontributory other than problems mentioned above for 12 organ systems. PHYSICAL EXAMINATION: GENERAL: Elderly male, lying, currently confused, in no acute distress. VITAL SIGNS: Temperature 96.7, pulse 63, respirations 20, and blood pressure 159/88. HEENT: Sclerae anicteric. NECK: Supple. BACK: Without costovertebral angle tenderness bilaterally. ABDOMEN: Soft. It is nontender. It is nondistended. There is no palpable mass. No palpable hernias. No palpable adenopathy. : Normal male external genitalia. EXTREMITIES: No edema. NEUROLOGIC: Moves all 4 extremities. PSYCH: Alert and appropriate. SKIN: Intact. Normal color. PERTINENT LABORATORY DATA: CT scan revealing BPH, laminectomy, diverticulitis, and cholelithiasis. Urinalysis; 1120 reds, greater than 50 whites, 2+ protein. Hemoglobin 13, hematocrit 39, platelet count 224,000, and white blood cell count 24,000. Sodium 130, potassium 3.4, chloride 97, bicarb 22, BUN 12, creatinine 0.8, and glucose 152. IMPRESSION: 1. Urinary tract infection. 2. Microscopic hematuria. 3. Benign prostatic hyperplasia. 4. Hypertension. 5. Hypokalemia. 6. Leukocytosis. 7. Proteinuria. PLAN: Heme, lytes, and hypertension per the primary service. For the patient's microscopic hematuria, elective cystoscopy as an outpatient will benefit. The patient's urinary tract infection, which was present on admission, the patient has been begun on broad-spectrum antibiotics. The patient's BPH, we will follow voiding. Thank you for allowing me to participate in the care of your patient. We will be happy to follow along with you. MD AARON Mazariegos/SOWMYA /[id number] cc: Dr. Bacilio Bosch
--- NOTE | 2019-01-23 18:52 | History and Physical ---
CHIEF COMPLAINT: This is a 68-year-old male, who comes in with acute confusion. HISTORY OF PRESENT ILLNESS: Mr. Chay Alvarez has been having state of confusion for the last three months, has been to various doctors and primary care physician. The patient continued to have some chills and some rigors yesterday and acute confusion, was brought into the emergency room, was found to have acute sepsis, urinary tract infection, and the patient was admitted to the hospital for acute sepsis. The patient's medical history and history of all this obtained from the chart. The patient is very confused. PAST MEDICAL HISTORY: History of depression, history of neuropathy, history of chronic pain syndrome, history of diabetes mellitus, history of hypertension, history of BPH, history of hyperlipidemia, and history of arrhythmias. MEDICATIONS: He takes at home are: 1. Amlodipine 10 mg daily. 2. Aspirin 81 mg daily. 3. Duloxetine 60 mg daily. 4. Finasteride 5 mg daily. 5. Flecainide 100 mg twice a day. 6. Gabapentin 800 mg p.o. q.i.d. 7. Hydrocodone 10/325 mg every 8 hours. 8. Insulin 10 units before meals and at bedtime. 9. Metformin 500 mg twice a day. 10. NPH insulin 10 units b.i.d. 11. Propranolol 60 mg twice a day. 12. Januvia 100 mg daily. 13. Tamsulosin 0.4 mg daily. PAST SURGICAL HISTORY: Noncontributory [facility] SOCIAL HISTORY: No EtOH. No IV drug abuse. History of dementia and has been taken care by his . ALLERGIES: THE PATIENT HAS ALLERGIES TO SOMA AND LINCOMYCIN. REVIEW OF SYSTEMS: Unable to obtain, the patient has baseline dementia. PHYSICAL EXAMINATION: GENERAL: The patient is alert, but not oriented, can give me his name x1. VITAL SIGNS: Temperature is 97.9, pulse of 62, respirations 16, blood pressure is 139/63, and pulse oximetry of 96%. HEENT: Normocephalic and atraumatic. Pupils are reactive to light and accommodation. CVS: S1 and S2 normal. Regular rate and rhythm. ABDOMEN: Nontender and nondistended. EXTREMITIES: No clubbing, no cyanosis, and no edema. Decreased sensations in the lower extremities. Decreased vibratory senses too. LABORATORY VALUES: Initial white count is 25,000 hemoglobin 14.8, hematocrit of 43.5, and neutrophil count 84. Chemistries show sodium of 135, BUN of 17, creatinine 0.90, AST 13, ALT 13, and glucose of 225. Urine shows positive for nitrites, leukocyte esterase small, and urine rbc's 11 to 20. IMAGING STUDIES: Chest x-ray shows mild patchy density in the right upper lobe, may represent summation of shadows versus focal infection. Abdominal CT shows finding concerning for mild sigmoid diverticulitis in the proper clinical setting and cholelithiasis without evidence of cholecystitis or biliary dilatation. Brain CT shows ventriculomegaly. The patient's chest x-ray otherwise as mentioned above. ASSESSMENT AND PLAN: 1. Sigmoid diverticulitis. 2. Urinary tract infection. 3. Severe sepsis. 4. History of dementia. 5. History of incontinence. 6. History of inability to walk. Given the findings, we will continue the patient on antibiotics. Currently, the patient is on Flagyl, cefepime, and also on vancomycin. We will continue to monitor the patient and ID consult will be done too for diverticulitis and urinary tract infection and sepsis. Possible consult with Neurosurgery at a later date when he is better given the fact of ventriculomegaly with dementia, incontinence, and gait imbalance. Diabetes, we will continue same medications. Neuropathy, continue same program. We will continue to monitor the patient. We have discussed the case with his , who is agreeable to all of the above. Further recommendation per clinical course. MD SHERIF Cardenas/LAWRENCEL /[id number]
[2019-01-24] VITALS (8 sets, daily range): BP systolic 112–173; BP diastolic 51–83
[2019-01-24] MEDS: CEFEPIME 1GM/NS 0.9% 50 ML 50 ML IV SCH (02:00)
[2019-01-24] MEDS: METRONIDAZOLE 750MG/NS 150ML 150 ML IV SCH ×2 (06:00→17:35)
[2019-01-24 06:36] LABS: BASOPHILS # (AUTO) 0.1 (0.0-0.1); BASOPHILS % 0.7 % (0.0-1.0); EOSINOPHILS # (AUTO) 0.2 (0.0-0.4); EOSINOPHILS % 1.3 % (0.0-6.0); HEMATOCRIT 38.7 % (38.2-49.6); LYMPHOCYTES # (AUTO) 2.5 (1.0-3.2); LYMPHOCYTES % 14.7 % (18.0-39.1); MEAN CORPUSCULAR HEMOGLOBIN 30.3 pg (28-32); MEAN CORPUSCULAR HGB CONC 33.6 g/dL (31-35); MEAN CORPUSCULAR VOLUME 90.2 fL (81-99); MONOCYTES # (AUTO) 1.6 (0.2-0.8); MONOCYTES % 9.4 % (4.4-11.3); NEUTROPHILS # (AUTO) 12.3 (2.1-6.9); NEUTROPHILS % 73.2 % (38.7-80.0); PLATELET COUNT 223 x10e3/uL (140-360); RED BLOOD COUNT 4.29 x10e6/uL (4.3-5.7); RED CELL DISTRIBUTION WIDTH 13.2 % (11.7-14.4)
[2019-01-24 06:56] LABS: ALANINE AMINOTRANSFERASE 10 IU/L (0-55); ALBUMIN 3.1 g/dL (3.5-5.0); ALBUMIN/GLOBULIN RATIO 0.9 (0.8-2.0); ALKALINE PHOSPHATASE 88 IU/L (40-150); ANION GAP 11.6 mmol/L (8-16); BLOOD UREA NITROGEN 9 mg/dL (7-26); BUN/CREATININE RATIO 13 (6-25); CARBON DIOXIDE 25 mmol/L (22-29); CHLORIDE 105 mmol/L (98-107); CREATININE, SERUM 0.69 mg/dL (0.72-1.25); EST GLOMERULAR FILTRATION RATE > 60 ML/MIN (60-); GLUCOSE 111 mg/dL (74-118); POTASSIUM 3.6 mmol/L (3.5-5.1); SODIUM 138 mmol/L (136-145)
[2019-01-24] MEDS: INSULIN REGULAR, HUMAN 100 UNIT/1 ML 3ML VIAL SQ SCH ×7 (07:30→21:11)
[2019-01-24] MEDS: SODIUM CHLORIDE 0.9% 1000ML 1,000 ML IV SCH ×3 (07:38→22:34)
--- NOTE | 2019-01-24 07:40 | NUR ---
PATIENT IS IN STABLE CONDITION WITH NO S/S OF RESPIRATORY DISTRESS. NO PAIN VOICED OR INDICATED. SCHMID INTACT AND DRAINING. IV FLUIDS INFUSING. BED ALARM ON. CALL LIGHT IS WITHIN REACH, PATIENT INSTRUCTED TO CALL FOR ASSISTANCE NEEDED.
[2019-01-24 08:00] LABS: EOSINOPHILS % (MANUAL) 3 % (0-7); LYMPHOCYTES % (MANUAL) 17 % (19-48); MONOCYTES % (MANUAL) 10 % (3.4-9.0); NEUTROPHILS % (MANUAL) 70 % (40-74); PLATELET ESTIMATE ADEQUATE; PLATELET MORPHOLOGY COMMENT NORMAL; RBC MORPHOLOGY COMMENT NORMAL
[2019-01-24] MEDS: NPH, HUMAN INSULIN ISOPHANE 100 UNIT/1 ML 3ML VIAL SQ SCH ×2 (08:00→17:03)
[2019-01-24] MEDS: DULOXETINE HCL 30 MG DELAYED RELEASE PO SCH (08:35)
[2019-01-24] MEDS: ASPIRIN 81 MG CHEW TAB PO SCH (08:35)
[2019-01-24] MEDS: METFORMIN HCL 500 MG TAB PO SCH ×2 (08:35→17:03)
[2019-01-24] MEDS: TAMSULOSIN HCL 0.4 MG CAP PO SCH (08:35)
[2019-01-24] MEDS: PROPRANOLOL HCL 60 MG ER CAP PO SCH ×2 (08:36→17:03)
[2019-01-24] MEDS: SITAGLIPTIN 100 MG TAB PO SCH (08:36)
[2019-01-24] MEDS: FINASTERIDE 5 MG TAB PO SCH (08:36)
[2019-01-24] MEDS: FLECAINIDE ACETATE 100 MG TAB PO SCH ×2 (08:36→17:03)
[2019-01-24] MEDS: AMLODIPINE BESYLATE 10 MG TAB PO SCH (08:36)
[2019-01-24] MEDS: GABAPENTIN 400 MG CAP PO SCH ×4 (08:36→21:10)
--- NOTE | 2019-01-24 10:24 | NUR ---
EDUCATED ABOUT IMM, SIGNED, FILED IN CHART, WITH COPY LEFT WITH FAMILY AT BEDSIDE.
--- NOTE | 2019-01-24 11:51 | Progress Note ---
DATE: SUBJECTIVE: The patient came in yesterday through the emergency room for acute sepsis, severe sepsis. The patient also has a history of dementia, incontinence, and inability to walk. The patient also with history of hypertension, hyperlipidemia, and uncontrolled diabetes mellitus with neuropathy. PHYSICAL EXAMINATION: VITAL SIGNS: Temperature is 98.3, pulse of 64, respirations 18, blood pressure is 178/83, tachycardic at 113, pulse oximetry of 96%. HEENT: Normocephalic, atraumatic. The patient has poor short-term memory. CVS: S1, S2 normal. Tachycardic. ABDOMEN: Nontender, nondistended. EXTREMITIES: No clubbing, no cyanosis, no edema. The patient does have decreased sensations in the lower extremities. LABORATORY DATA: Today's white count is 16,000 down from 25,000, hemoglobin of 13, hematocrit of 38, neutrophil count, left shift is not present anymore. Chemistry is pending. Urine, positive. Microbiology; blood culture, no growth. Urine culture is still pending. ASSESSMENT: 1. Urinary tract infection. 2. Severe sepsis. 3. Benign prostatic hyperplasia. 4. Leukocytosis. 5. Hypertension. 6. Dementia. 7. Incontinence. 8. Hypertension. PLAN: Continue with IV antibiotics. Consult with Dr. Yap has already been given. The patient's medicines have been reviewed. Leukocytosis is better. A consult also with Dr. Angel Christiansen can be given on a later date for possible NPH. Further recommendations per clinical course. We will continue to monitor the patient and we will talk with the family on further care and also potassium will be replaced today. MD SHERIF Cardenas/LAWRENCEL /[id number]
--- NOTE | 2019-01-24 15:58 | Consultation ---
DATE OF CONSULTATION: REASON FOR CONSULTATION: Sepsis. HISTORY OF PRESENT ILLNESS: This patient, who is a very pleasant, but confused 68-year-old white male. According to his , he has not been himself for the last 3 days. He had fever and chills, just more confused than usual. The patient in the last here also has been mainly in the chair, need maximal food and beverage assistant to leave the chair. The patient, who does have history of dementia, depression, neuropathy, chronic pain syndrome, diabetes mellitus, hypertension, obesity, benign prostate hypertrophy, who also this has been going on for some time and had urological workup few months ago, had a England catheter for the last 2 weeks. He has been having problem with urination, history for arrhythmia, coronary artery disease, hyperlipidemia, and hypertension, comes in with the above complaints. PAST MEDICAL HISTORY: Benign prostatic hypertrophy, hypertension, coronary artery disease, dementia, neuropathy, and diabetes mellitus. PAST SURGICAL HISTORY: Back surgery. ALLERGIES: NKA. SOCIAL HISTORY: There is no smoking, drug abuse, or alcohol abuse currently. FAMILY HISTORY: Hypertension. REVIEW OF SYSTEMS: The tells me he is just not himself recently, getting progressively worse over the last few days, and fever and chills and not eating as much, but the patient himself is not complaining of anything. LABORATORY DATA: Reviewed. When he first came, his white count 24.3, hemoglobin 14.8, and hematocrit 43. His sodium was 130, potassium 3.6, and creatinine 0.69. Blood cultures negative. Urine culture showing gram-negative rods. He had a chest x-ray when he first came, showed atelectasis. He had a CT of abdomen and pelvis when he first came, showed diverticulitis. PHYSICAL EXAMINATION: GENERAL: He is currently alert and oriented, does not seem to be in acute distress. VITAL SIGNS: Stable. Currently afebrile. HEENT: Not icteric. NECK: Supple. CHEST: Clear. HEART: S1 and S2. ABDOMEN: Soft. Diffuse discomfort. IMPRESSION: 1. Diverticulitis. Agree with cefepime and metronidazole. Discontinue vancomycin. 2. Dementia. 3. Bacteriuria, perhaps urinary tract infection. 4. Continue with the current choice of IV antibiotic. We will follow with you. MD LEANNA Carbajal/SOWMYA /[id number]
--- NOTE | 2019-01-24 19:13 | NUR ---
PATIENT IS IN STABLE CONDITION WITH NO S/S OF RESPIRATORY DISTRESS. NO PAIN VOICED. IV FLUIDS INFUSING. PRESENT IN ROOM. BED ALARM ON. CALL LIGHT IS WITHIN REACH, PATIENT INSTRUCTED TO CALL FOR ASSISTANCE NEEDED. BEDSIDE REPORT GIVEN TO ONCOMING NURSE.
--- NOTE | 2019-01-24 19:15 | NUR ---
PT IS RESTING IN BED WITH AT BEDSIDE. RESPIRATION IS EVEN AND UNLABORED, NO DISTRESS NOTED. BED IN THE LOWEST POSITION, LOCKED, BED ALARM ON, AND CALL LIGHT WITHIN REACH. WILL CONTINUE TO MONITOR.
[2019-01-25] VITALS (7 sets, daily range): BP systolic 163–179; BP diastolic 73–88
[2019-01-25] MEDS: CEFEPIME 1GM/NS 0.9% 50 ML 50 ML IV SCH (01:16)
[2019-01-25] MEDS: METRONIDAZOLE 750MG/NS 150ML 150 ML IV SCH ×3 (01:54→18:01)
[2019-01-25 05:53] LABS: BASOPHILS # (AUTO) 0.1 (0.0-0.1); BASOPHILS % 0.9 % (0.0-1.0); EOSINOPHILS # (AUTO) 0.4 (0.0-0.4); HEMOGLOBIN 12.9 g/dL (14.0-18.0); LYMPHOCYTES # (AUTO) 2.3 (1.0-3.2); LYMPHOCYTES % 18.2 % (18.0-39.1); MEAN CORPUSCULAR HEMOGLOBIN 30.3 pg (28-32); MEAN CORPUSCULAR HGB CONC 33.9 g/dL (31-35); MEAN CORPUSCULAR VOLUME 89.2 fL (81-99); MONOCYTES # (AUTO) 1.3 (0.2-0.8); MONOCYTES % 10.5 % (4.4-11.3); NEUTROPHILS # (AUTO) 8.5 (2.1-6.9); NEUTROPHILS % 66.5 % (38.7-80.0); PLATELET COUNT 221 x10e3/uL (140-360); RED BLOOD COUNT 4.26 x10e6/uL (4.3-5.7); RED CELL DISTRIBUTION WIDTH 13.2 % (11.7-14.4)
[2019-01-25 06:14] LABS: ANION GAP 13.3 mmol/L (8-16); BLOOD UREA NITROGEN 10 mg/dL (7-26); BUN/CREATININE RATIO 15 (6-25); CARBON DIOXIDE 25 mmol/L (22-29); CHLORIDE 105 mmol/L (98-107); CREATININE, SERUM 0.68 mg/dL (0.72-1.25); EST GLOMERULAR FILTRATION RATE > 60 ML/MIN (60-); GLUCOSE 118 mg/dL (74-118); POTASSIUM 3.3 mmol/L (3.5-5.1); SODIUM 140 mmol/L (136-145)
--- NOTE | 2019-01-25 07:10 | NUR ---
Walking rounds done and report received. Patient is resting in bed with eyes closed in NAD. Tele #[id number], [id number]. POC discussed. Patient instructed to call for assistance as needed and verbalized understanding. Bed in lowest position, locked and call cui within reach.
[2019-01-25] MEDS: INSULIN REGULAR, HUMAN 100 UNIT/1 ML 3ML VIAL SQ SCH ×7 (07:30→21:00)
[2019-01-25] MEDS: SODIUM CHLORIDE 0.9% 1000ML 1,000 ML IV SCH ×2 (07:50→16:25)
[2019-01-25] MEDS: NPH, HUMAN INSULIN ISOPHANE 100 UNIT/1 ML 3ML VIAL SQ SCH ×2 (08:00→17:00)
--- NOTE | 2019-01-25 08:06 | Progress Note ---
DATE: SUBJECTIVE: The patient is here for diverticulitis. The patient is currently asymptomatic and afebrile, did well through the night. No complaints. OBJECTIVE: VITAL SIGNS: Temperature is 96.4, pulse of 56, respirations of 18, blood pressure is 164/79, and pulse oximetry of 94%. HEENT: Normocephalic and atraumatic. The patient has very poor short-term memory. CVS: S1 and S2 normal. Regular rhythm. EXTREMITIES: No clubbing, no cyanosis, no edema. ABDOMEN: Slightly tender in the left lower quadrant. MEDICATIONS: He is on Flagyl, cefepime, insulin sliding scale, gabapentin, flecainide, propranolol, insulin sliding scale, finasteride 5 mg, tamsulosin, aspirin, and hydrocodone as needed. LABORATORY VALUES: Today's white count is 12,000 down from 16,000; hemoglobin of 12.9; and hematocrit 38.0. Chemistry; sodium 140 and potassium 3.3. ASSESSMENT: 1. Severe sepsis. 2. Urinary tract infection. 3. Diverticulitis. 4. Leukocytosis. 5. Dementia. 6. Incontinence. 7. Hypertension. PLAN: Continue with cefepime and Flagyl. Leukocytosis is better. Hypertension is controlled. Further recommendation per clinical course. We will continue to monitor the patient. MD SHERIF Cardenas/LAWRENCEL /[id number]
[2019-01-25] MEDS: METFORMIN HCL 500 MG TAB PO SCH ×2 (09:00→16:25)
[2019-01-25] MEDS: ASPIRIN 81 MG CHEW TAB PO SCH (09:37)
[2019-01-25] MEDS: TAMSULOSIN HCL 0.4 MG CAP PO SCH (09:37)
[2019-01-25] MEDS: DULOXETINE HCL 30 MG DELAYED RELEASE PO SCH (09:37)
[2019-01-25] MEDS: SITAGLIPTIN 100 MG TAB PO SCH (09:38)
[2019-01-25] MEDS: PROPRANOLOL HCL 60 MG ER CAP PO SCH ×2 (09:38→16:25)
[2019-01-25] MEDS: FLECAINIDE ACETATE 100 MG TAB PO SCH ×2 (09:38→16:25)
[2019-01-25] MEDS: GABAPENTIN 400 MG CAP PO SCH ×4 (09:38→21:12)
[2019-01-25] MEDS: FINASTERIDE 5 MG TAB PO SCH (09:38)
[2019-01-25] MEDS: AMLODIPINE BESYLATE 5 MG TAB PO SCH (09:38)
--- NOTE | 2019-01-25 10:38 | NUR ---
Dr. Yanes paged to find out when MD will come see patient. Per Dr. Yanes he will see patient tomorrow. Daughter notified.
--- NOTE | 2019-01-25 16:58 | Progress Note ---
DATE: SUBJECTIVE: Mr. Alvarez is doing slightly better. His is at the bedside. REVIEW OF SYSTEMS: The patient is not really a good source of information, but according to , he seemed to be stable. OBJECTIVE: VITAL SIGNS: Better. There is no fever, respirations 18, heart rate 60, blood pressure 164/80. HEENT: Normocephalic. Not icteric. NECK: Supple. No JVD. No carotid bruit. No thyromegaly. CHEST: Clear bilateral. HEART: S1, S2. No S3, S4, or murmur. ABDOMEN: Soft. No tenderness. No hepatomegaly. EXTREMITIES: No edema. SKIN: No rash. IMPRESSION AND PLAN: 1. Diverticulitis, better. 2. Possible urinary tract infection. 3. Dementia. 4. Incontinence. 5. Hypertension. 6. Continue with the current choice of IV Flagyl and cefepime. 7. Recheck CBC. Recheck Chem panel. His white count is coming down is 12.72. Also reviewed his lab, sodium 140, potassium 3.3, creatinine 0.68. 8. Discussed with the medical team. Discussed with his . Answered all question. 9. Continue with above antibiotic for next few days, then maybe change to oral if he continued to improve. MD LEANNA Carbajal/SOWMYA /[id number]
--- NOTE | 2019-01-25 17:30 | NUR ---
DR. Yanes at the bedside discussing plan of care with family.
--- NOTE | 2019-01-25 18:24 | Consultation ---
DATE OF CONSULTATION: 01/25/2019 REASON FOR CONSULTATION: Possible normal pressure hydrocephalus. HISTORY OF PRESENT ILLNESS: The patient is a 68-year-old man, who had lumbar laminectomy and fusion by another surgeon at [facility] about a year ago. After the operation, he had a great deal of back pain and was unable to ambulate. Since then, he has been nonambulatory and using a wheelchair at home, and his has been helping him transfer. Over the past 4-5 months, he has developed progressively worsening dementia and urinary incontinence. He was presumably schedule to undergo a lumbar laminectomy at a different level by another surgeon, Dr. Price today. However, over the past week, his mental status has acutely deteriorated and he presented to the emergency room, and was diagnosed with urinary tract infection. Since having been placed on antibiotics over the past couple of days, his mental status has returned to the way it was prior to last week. He is now awake and alert, but profoundly demented and unable to ambulate. He complains of no significant back pain. He remains incontinent and has a England catheter in place. A CT of the brain was performed, which revealed moderate ventriculomegaly, slightly out of proportion to the degree of cerebral atrophy. Incidentally, the CT is unchanged from the prior head CT done in July of this year at this hospital, where he had presented with hypoglycemia. The patient has never had MR imaging of the brain. PHYSICAL EXAMINATION: NEUROLOGIC: The patient is alert and awake. He is pleasant and conversant. However, he is profoundly demented. He is oriented only x1. He experiences some word-finding difficulty when trying to elaborate on his thoughts. His memory is profoundly poor. He follows simple commands, but not multistep commands. His cranial nerves are intact. He cannot sit up in bed unsupported and tends to fall to the left. He is completely unable to stand and bear weight on his legs, even though he has good motor strength in the legs while in bed. Deep tendon reflexes are symmetric. Plantar responses are equivocal bilaterally. There is no definite sensory level. IMPRESSION: The patient's history is consistent with the possibility of normal-pressure hydrocephalus. However, the confounding factors such as his lumbar spinal stenosis, history of deconditioning over the past year, and other possible diagnoses such as Alzheimer dementia, which should be kept within the differential diagnosis. RECOMMENDATIONS: 1. MRI of the brain. 2. High volume LP to be performed by Interventional Radiology on Sunday to see if he demonstrates a clinical improvement within the first couple of days after removal of CSF. 3. Neurology consult to help him monitor his neurological progress after lumbar puncture. 4. If all of the above turned out to point towards the diagnosis of normal-pressure hydrocephalus, I will consider ventriculoperitoneal shunt on him later in the week. In the meanwhile, the family will get me his lumbar MRI, so I can see why he was scheduled to have a lumbar laminectomy today. Burak Yanes MD PP/SOWMYA /[id number]
--- NOTE | 2019-01-25 18:45 | NUR ---
Received bedside report from day shift RN. The patient is laying on the bed in a upright position, not in distress. Bed alarm is on. Bed height low, call light within reach, wheels locked, and side rails up x2.
--- NOTE | 2019-01-25 19:15 | NUR ---
Walking rounds done. call cui within reach.
[2019-01-26] VITALS (8 sets, daily range): BP systolic 122–176; BP diastolic 63–90
--- NOTE | 2019-01-26 01:00 | NUR ---
The patient has tried to come out of the bed with the bed alarm on. RN and sebastián repositioned the patient onto the bed. Bed alarm set on.
[2019-01-26] MEDS: SODIUM CHLORIDE 0.9% 1000ML 1,000 ML IV SCH ×3 (01:27→18:21)
[2019-01-26] MEDS: CEFEPIME 1GM/NS 0.9% 50 ML 50 ML IV SCH (01:27)
[2019-01-26] MEDS: METRONIDAZOLE 750MG/NS 150ML 150 ML IV SCH ×3 (01:54→17:47)
[2019-01-26 06:03] LABS: BASOPHILS # (AUTO) 0.1 (0.0-0.1); BASOPHILS % 0.8 % (0.0-1.0); EOSINOPHILS # (AUTO) 0.3 (0.0-0.4); EOSINOPHILS % 2.8 % (0.0-6.0); HEMATOCRIT 38.5 % (38.2-49.6); LYMPHOCYTES % 16.6 % (18.0-39.1); MEAN CORPUSCULAR HEMOGLOBIN 30.1 pg (28-32); MEAN CORPUSCULAR HGB CONC 33.8 g/dL (31-35); MEAN CORPUSCULAR VOLUME 89.1 fL (81-99); MONOCYTES # (AUTO) 1.2 (0.2-0.8); MONOCYTES % 9.9 % (4.4-11.3); NEUTROPHILS # (AUTO) 8.2 (2.1-6.9); NEUTROPHILS % 69.4 % (38.7-80.0); PLATELET COUNT 246 x10e3/uL (140-360); RED BLOOD COUNT 4.32 x10e6/uL (4.3-5.7); RED CELL DISTRIBUTION WIDTH 13.1 % (11.7-14.4)
[2019-01-26 06:36] LABS: ANION GAP 13.3 mmol/L (8-16); BLOOD UREA NITROGEN 10 mg/dL (7-26); BUN/CREATININE RATIO 14 (6-25); CALCIUM 8.9 mg/dL (8.4-10.2); CARBON DIOXIDE 21 mmol/L (22-29); CHLORIDE 107 mmol/L (98-107); CREATININE, SERUM 0.69 mg/dL (0.72-1.25); EST GLOMERULAR FILTRATION RATE > 60 ML/MIN (60-); GLUCOSE 110 mg/dL (74-118); POTASSIUM 3.3 mmol/L (3.5-5.1); SODIUM 138 mmol/L (136-145)
--- NOTE | 2019-01-26 07:00 | NUR ---
Walking rounds and report received. Patient is resting in bed without any complaints voiced. Bed in lowest position, locked, bed alarm on and call cui within reach.
[2019-01-26] MEDS: INSULIN REGULAR, HUMAN 100 UNIT/1 ML 3ML VIAL SQ SCH ×7 (07:30→20:06)
[2019-01-26] MEDS: NPH, HUMAN INSULIN ISOPHANE 100 UNIT/1 ML 3ML VIAL SQ SCH ×2 (08:00→17:00)
[2019-01-26] MEDS: METFORMIN HCL 500 MG TAB PO SCH ×2 (09:11→17:47)
[2019-01-26] MEDS: ASPIRIN 81 MG CHEW TAB PO SCH (09:11)
[2019-01-26] MEDS: FLECAINIDE ACETATE 100 MG TAB PO SCH ×2 (09:12→17:47)
[2019-01-26] MEDS: TAMSULOSIN HCL 0.4 MG CAP PO SCH (09:12)
[2019-01-26] MEDS: PROPRANOLOL HCL 60 MG ER CAP PO SCH ×2 (09:12→17:47)
[2019-01-26] MEDS: GABAPENTIN 400 MG CAP PO SCH ×4 (09:12→20:07)
[2019-01-26] MEDS: SITAGLIPTIN 100 MG TAB PO SCH (09:12)
[2019-01-26] MEDS: FINASTERIDE 5 MG TAB PO SCH (09:12)
[2019-01-26] MEDS: DULOXETINE HCL 30 MG DELAYED RELEASE PO SCH (09:12)
[2019-01-26] MEDS: AMLODIPINE BESYLATE 5 MG TAB PO SCH (09:12)
--- NOTE | 2019-01-26 10:31 | Progress Note ---
DATE: SUBJECTIVE: The patient is admitted for urinary tract infection, severe sepsis, and diverticulitis. The patient is currently on cefepime and Flagyl. Currently, he also taking tamsulosin, gabapentin, hydrocodone as needed, flecainide, finasteride, and duloxetine. Today, the patient is alert and oriented x1, very sleepy, arousable. No complaints of any pain. No chest pain. Poor short-term memory. OBJECTIVE: VITAL SIGNS: Temperature is 98.0, pulse 60, respirations of 20, blood pressure is 139/63, and pulse oximetry of 95%. HEENT: Normocephalic, atraumatic. Pupils are reactive to light and accommodation. CVS: S1, S2. Regular. ABDOMEN: Slightly tender in the left lower quadrant. EXTREMITIES: No clubbing, no cyanosis, no edema. LABORATORY VALUES: White count is down to 11,000, hemoglobin of 13.7, and hematocrit 38. Chemistry; sodium of 130, potassium of 3.3, BUN of 10, and creatinine of 0.69. Glucose have been running in the 90s to 120s. ASSESSMENT AND PLAN: 1. Diverticulitis, which is better. 2. Urinary tract infection. 3. Dementia. 4. Incontinence. 5. Hypertension. The patient's white count is trending down. Potassium will be replaced. Continue with antibiotic and also consult was made with Dr. Yanes and also with Dr. Diane Mccord. A diagnosis of NPH has been entertained with possible dementia and an LP has been scheduled for the patient. Continue with the IV antibiotics and neuro workup and neurosurgical consult workup will be started. Further recommendation per clinical course. We will continue to monitor the patient. MD JACOB CardenasJ/MODL /[id number]
--- NOTE | 2019-01-26 14:13 | NUR ---
LP tentatively scheduled for 13:30 per Theodora in Radiology and Dr. Mccord is aware of time. Patient may have a light breakfast and NPO after breakfast.
--- NOTE | 2019-01-26 16:33 | Progress Note ---
DATE: SUBJECTIVE: Mr. Alvarez is doing much better today. He is more alert. There is no complaint. REVIEW OF SYSTEMS: HEENT: Negative. PULMONARY: Negative. CARDIAC: Negative. All symptoms within normal limits. PHYSICAL EXAMINATION: GENERAL: He is currently alert, oriented, does not seem in acute distress. VITAL SIGNS: Stable, afebrile. HEENT: Not icteric. NECK: Supple. CHEST: Clear. HEART: S1, S2. No S3, S4 or murmur. ABDOMEN: Soft. Bowel sounds present. No tenderness. EXTREMITIES: No edema. SKIN: No rash. IMPRESSION: 1. Diverticulitis better. 2. Urinary tract infection with Escherichia coli, which was sensitive, resistant only to Bactrim. Doing much better with current choice of IV antibiotic. We will continue with metronidazole and cefepime. Can change to Cipro and Flagyl orally to finish 14 days. 3. Underlying dementia, debility. May need PT, OT. We will discuss with Internal Medicine. MD LEANNA Carbajal/MODLoulou /[id number]
--- NOTE | 2019-01-26 16:59 | Consultation ---
DATE OF CONSULTATION: 01/26/2019 Neurology Consult Note HISTORY OF PRESENT ILLNESS: Mr. Alvarez is a 68-year-old man with past medical history significant for hypertension, hyperlipidemia, diabetes mellitus complicated by peripheral neuropathy, atrial fibrillation, and chronic back pain, admitted to [facility] on January 22, 2019, with sepsis secondary to urinary tract infection and diverticulitis. Neurology Service is consulted by Neurosurgery (Dr. Burak Yanes) to assist with evaluation for normal-pressure hydrocephalus. During the course of his hospitalization, Mr. Alvarez underwent a CT of the brain without contrast, which revealed moderate dilation of the lateral and third ventricles without active hydrocephalus. Of note, these findings were noted by the neuroradiologist to be stable from a prior CT of the brain without contrast performed in July of 2018. The primary service, concern the patient may have normal pressure hydrocephalus, consulted first Dr. Yanes, who then consulted myself for further evaluation and treatment of possible normal-pressure hydrocephalus. The following history is obtained from the patient's over the telephone. The patient's reports noticing decline in the patient's cognition approximately 6 months ago. It is possible the symptoms may have began 8 months ago, but Mrs. Alvarez reports she is certain the symptoms were there 6 months ago. Mr. Alvarez needs qatjbddr-yh-wwctpgr assistance with the majority of his activities of daily living. The is uncertain as to whether or not the patient is able to recall the names of family members and close friends. Mr. Alvarez does not often misplace items, but his states he is inactive, so it would be difficult for him to misplace anything. The patient's does endorse repetition of questions and stories. Mr. Alvarez is and lives with his . Due to his chronic low back pain and impairment of gait, Mrs. Alvarez reports waiting on the patient "hand and foot." Mr. Alvarez does not perform any chores in or around the home. He no longer drives. He does not run [employer]. The patient's manages the household finances and all has always done so. The patient's schedules his appointments. She reports she has always done this, though she does admits the patient probably could have scheduled appointments for himself up to approximately 6-8 months ago. Mr. Alvarez's has managed his medications since November of 2017. There is a positive family history of dementia. One of Mr. Alvarez's sisters reportedly has Alzheimer disease. However, the patient's insinuates his sister has multiple vascular risk factors, therefore it is possible the patient's sister has vascular dementia. Mr. Alvarez's gait impairment began in approximately November of 2017 following a lumbar spine surgery. Shortly after surgery, the patient was admitted to a facility where he received physical therapy on a scheduled basis. Mrs. Alvarez reports the patient appeared to do "better," following his stay at this facility. However, once he was discharged, his gait progressively declined until he became wheelchair bound. The patient's reports urinary incontinence began approximately 4-6 weeks ago. Mr. Alvarez was brought to [facility] on January 22, 2019, with a 1-week history of progressively worsening memory loss and cognitive deficits. At this time, the patient was found to have sepsis secondary to urinary tract infection and diverticulitis. REVIEW OF SYSTEMS: Fever, chills, decreased oral intake, memory impairment, confusion, impairment of balance and gait, low back pain (chronic), urinary incontinence, multiple falls. Otherwise, twelve-point review of systems is negative. PAST MEDICAL HISTORY: Hypertension, hyperlipidemia, diabetes mellitus complicated by peripheral neuropathy, atrial fibrillation, depression, benign prostatic hypertrophy, chronic back pain, and heat stroke x3. PAST SURGICAL HISTORY: Multiple lumbar spine procedures, bilateral cataract removal. PAST HOSPITALIZATIONS: Surgeries/procedures as listed, multiple other hospitalizations. FAMILY MEDICAL HISTORY: The patient's father was from bone cancer. His mother was from lung cancer. Six of the patient's seven siblings had diabetes mellitus. One sister who is alive, has Alzheimer disease/dementia. A brother who is alive, has diabetes mellitus, end-stage renal disease on hemodialysis, and liver disease, status post transplant. Mr. Alvarez has two children, a son and a daughter, both of whom are alive. The patient's reports their son has bipolar disorder and the daughter has hypertension. SOCIAL HISTORY: Mr. Alvarez is . He is retired. There is no reported current or prior tobacco, alcohol, or recreational drug use. HOME MEDICATIONS: Amlodipine 5 mg by mouth daily, aspirin 81 mg by mouth daily, Cymbalta 60 mg by mouth daily, finasteride 5 mg by mouth daily, flecainide 100 mg by mouth twice daily, gabapentin 800 mg by mouth four times daily, [place] 10/325 one tablet by mouth every 8 hours as needed for pain, insulin regular 10 units subcutaneously with meals, metformin 1000 mg by mouth twice daily, Novolin 10 units subcutaneously twice daily, propranolol 60 mg by mouth twice daily, Januvia 100 mg by mouth daily, and tamsulosin 0.4 mg by mouth daily. HOSPITAL MEDICATIONS: Norvasc, aspirin, cefepime, duloxetine, finasteride, flecainide, gabapentin, [place], Humulin N, Humulin R, metformin, metronidazole, propranolol, sitagliptin, and tamsulosin. ALLERGIES: CARISOPRODOL, LINCOMYCIN. NO KNOWN FOOD ALLERGIES. NO KNOWN ALLERGIES TO LATEX. NO KNOWN ALLERGIES TO IODINE OR OTHER CONTRAST MATERIALS. PHYSICAL EXAMINATION: VITAL SIGNS: Height 67 inches, weight 221 pounds, BMI 34.6 kg/m2. Blood pressure 122/70 mmHg, pulse 58 beats per minute, respiratory rate 20 breaths per minute, and oxygen saturation 95% on room air. GENERAL: The patient is awake and alert, does not appear distressed. Obese. HEENT: Normocephalic, atraumatic. Pupils are surgical. Moist mucous membranes. NECK: Supple. No appreciable thyromegaly. No appreciable carotid bruits. CARDIOVASCULAR: S1, S2, regular rate and rhythm. No murmurs, rubs, or gallops. RESPIRATORY: Clear to auscultation bilaterally. No wheezes, rhonchi, or rales. EXTREMITIES: The skin is warm and dry. No clubbing, cyanosis, or edema. The posterior tibial and dorsalis pedis pulses are 1+ and symmetric. SKIN: No rashes or lesions. NEUROLOGIC: Memory/Attention: The patient is awake and alert, oriented to person, place (state only), time (day of the week only), but not to situation. Cranial Nerves: Cranial nerve I - not tested. Cranial nerve II, III, IV, and - pupils are surgical. Extraocular movements intact. No nystagmus. Cranial nerve V - sensation to light touch is intact in the bilateral V1 through V3 distributions. Strength in the temporalis and masseter muscles are within normal limits. Cranial nerve VII - the face is symmetric as are all facial movements. Strength is within normal limits. Cranial nerve VIII - hearing is intact to finger rub bilaterally. Cranial nerve 9, 10 - the soft palate elevates equally and symmetrically. Cranial nerve XI - normal strength of the bilateral sternocleidomastoid and trapezius muscles. Cranial nerve XII -- the tongue protrudes midline and moves symmetrically from [id number]-dn-pacz. Strength: Bulk is normal. Strength is 5/5 in the bilateral deltoids, biceps, triceps, wrist flexors and extensors, finger flexors and extensors, intrinsic hand muscles, hip flexors, knee flexors and extensors, ankle dorsiflexion and plantar flexion, and intrinsic foot muscles. Tone is normal. DTRs: Deep tendon reflexes are trace and symmetric at the triceps, biceps, and brachioradialis. Deep tendon reflexes are absent and symmetric at the Achilles. Plantar responses are flexor bilaterally. Sensation: Sensation is intact to light touch in both arms and both legs. Cerebellar: Mncsbr-mrxd-girero and heel-navarro movements are intact without dysmetria or other impairment. Gait: The patient slights his feet along the ground. Stride length is markedly shortened. The patient takes 2-3 steps, but moves no more than 6-8 inches from the bed. Speech: Spontaneous speech is normal without appreciable dysarthria or aphasia. Repetition is intact. Involuntary movements: None. Pronator Drift: None. LABORATORY DATA: Most recent basic metabolic panel is significant for potassium of 3.3, carbon dioxide of 21, and creatinine is 0.69. Liver function panel collected on January 24, 2019 is significant only for an albumin of 3.1. Cardiac enzymes are negative x1. Lactic acid 14.9. CBC with differential and platelets reveals an elevated white blood cell count of 11.87 with a left shift with 69.4% neutrophils, 16.6% lymphocytes, 9.9% monocytes, 2.8% eosinophils, and 0.1% basophils. The hemoglobin and hematocrit are 13.0 and 38.5, respectively and platelet count is 246. Urinalysis collected on January 22, 2019, revealed cloudy urine with 2+ protein, positive nitrites, small leukocyte esterase, 11-20 red blood cells, greater than 50 white blood cells, and many urine bacteria with few urine epithelial cells. A urine culture collected on January 22, 2019, grew E coli. Blood cultures collected on January 22, 2019, revealed no growth after 72 hours. DIAGNOSTIC STUDIES: Electrocardiogram 01/22/2019: Normal sinus rhythm at 60 beats per minute. Chest x-ray 01/22/2019: Mild patchy density in the right upper lobe may represent summation of shadows versus focus of infection in the proper clinical setting. Recommend chest PA and lateral views if the patient's condition permits. CT of the brain without contrast 01/22/2019, on my review, there is no evidence of recent or remote large territorial ischemia, hemorrhage, mass, or mass effect. There is mild diffuse cerebral atrophy with moderate dilatation of the lateral and third ventricles. There are findings compatible with moderate chronic small vessel ischemic disease. CT of the abdomen/pelvis on 01/22/2019, findings concerning for mild sigmoid diverticulitis in the proper clinical setting. No abscess formation. Cholelithiasis without evidence of cholecystitis or biliary dilatation. Chest x-ray on 01/23/2019, bibasilar subsegmental atelectasis. ASSESSMENT AND PLAN: Mr. Alvarez is a 68-year-old man with past medical history as detailed admitted to [facility] on January 22, 2019, with sepsis secondary to urinary tract infection and diverticulitis. Mr. Alvarez has a history of progressively worsening cognitive impairment, poor balance with impairment of gait, and urinary incontinence as detailed in the history of present illness. The patient has undergone a thorough neurological examination with findings detailed above. His laboratory data and other diagnostic studies have been reviewed and are documented above. It is possible the patient's symptoms are due to metabolic encephalopathy superimposed on dementia, probably vascular dementia given the degree of small-vessel disease on the patient's CT of the brain without contrast. However, his diagnosis would not account for the patient's poor balance and impairment of gait. Normal-pressure hydrocephalus would explain all of the patient's symptoms, and is a possible diagnosis given the moderate ventricular dilation seen on CT of the brain without contrast. RECOMMENDATIONS: As follows: 1. MRI of the brain without contrast has been ordered and is pending. 2. A high-volume lumbar puncture with Interventional Radiology will be performed on January 27, 2019 at approximately 1330. Due to the average rate of CSF production (20 mL/h), Mr. Alvarez should be walked within 1 to 2 hours of the lumbar puncture. 3. Continue intravenous antibiotics for the patient's urinary tract infection and diverticulitis. 4. Avoid sedative/hypnotic and pain medications as these will alter the patient's sensorium. 5. Utilize environmental cues to limit delirium. 6. Defer treatment of the remaining medical comorbidities to the primary and other services following the patient. Thank you for this consultation. I will continue to follow the patient while he is hospitalized. At this time, I do plan to be present immediately following the patient's lumbar puncture, so the patient may be walked status post high-volume LP. TIME SPENT: 70 minutes. Diane Mccord MD CP/LAWRENCEL /[id number]
--- NOTE | 2019-01-26 18:45 | NUR ---
Received bedside report from day shift RN. The patient is laying on the bed, asleep, and not in distress. Bed height low, call light within reach, wheels locked, and side rails up x2. Day RN woke up the patient to notify the change of RN.
[2019-01-27] VITALS (7 sets, daily range): BP systolic 128–183; BP diastolic 59–82
[2019-01-27] MEDS: SODIUM CHLORIDE 0.9% 1000ML 1,000 ML IV SCH ×2 (02:07→09:25)
[2019-01-27] MEDS: METRONIDAZOLE 750MG/NS 150ML 150 ML IV SCH ×3 (02:07→18:00)
[2019-01-27] MEDS: CEFEPIME 1GM/NS 0.9% 50 ML 50 ML IV SCH (02:07)
[2019-01-27] MEDS: INSULIN REGULAR, HUMAN 100 UNIT/1 ML 3ML VIAL SQ SCH ×7 (07:30→21:00)
--- NOTE | 2019-01-27 07:35 | NUR ---
PT UP IN BED ,NO DISTRESS NTOED,PAIN LEVEL 3,
--- NOTE | 2019-01-27 07:46 | Progress Note ---
DATE: SUBJECTIVE: A 68-year-old male comes in with acute mental status changes, severe sepsis, urinary tract infection. The patient is currently on cefepime and Flagyl. Consult with Dr. Diane Mccord for possible normal-pressure hydrocephalus has been done. The patient's white count is trending down and is responding to antibiotics. The patient also has a diagnosis of diverticulitis. OBJECTIVE: VITAL SIGNS: Temperature is 98.3, pulse of 55, respirations of 18, blood pressure is 141/62, pulse oximeter of 93%. HEENT: Normocephalic, atraumatic. Pupils are reactive to light and accommodation. CVS: S1 and S2 normal. Regular rate and rhythm. ABDOMEN: Nontender, nondistended. EXTREMITIES: No clubbing, no cyanosis, no edema. LABORATORY DATA: White count is 11,000, hemoglobin 13, hematocrit 38.5. Chemistries; potassium 3.3, otherwise normal. Urine, cloudy. MICROBIOLOGY: Urine culture did grow E. coli, sensitive to cefepime. ASSESSMENT: 1. Diverticulitis, which is better. 2. Urinary tract infection with Escherichia coli, on cefepime. 3. Dementia, incontinence, and gait instability. The patient is to undergo LP today and also Dr. Yanes is following the patient. 4. Hypertension. Continue with antihypertensive and CV medications. Further recommendation per clinical course. We will continue monitor the patient and follow up with LP today. MD JACOB CardenasJ/MODL /[id number]
[2019-01-27] MEDS: NPH, HUMAN INSULIN ISOPHANE 100 UNIT/1 ML 3ML VIAL SQ SCH ×2 (08:00→16:51)
[2019-01-27] MEDS: FLECAINIDE ACETATE 100 MG TAB PO SCH ×2 (09:00→16:51)
[2019-01-27] MEDS: ASPIRIN 81 MG CHEW TAB PO SCH (09:00)
[2019-01-27] MEDS: PROPRANOLOL HCL 60 MG ER CAP PO SCH ×2 (09:24→16:51)
[2019-01-27] MEDS: GABAPENTIN 400 MG CAP PO SCH ×4 (09:24→21:00)
[2019-01-27] MEDS: FINASTERIDE 5 MG TAB PO SCH (09:24)
[2019-01-27] MEDS: TAMSULOSIN HCL 0.4 MG CAP PO SCH (09:24)
[2019-01-27] MEDS: DULOXETINE HCL 30 MG DELAYED RELEASE PO SCH (09:24)
[2019-01-27] MEDS: AMLODIPINE BESYLATE 5 MG TAB PO SCH (09:24)
[2019-01-27] MEDS: METFORMIN HCL 500 MG TAB PO SCH ×2 (09:25→17:00)
[2019-01-27] MEDS: SITAGLIPTIN 100 MG TAB PO SCH (09:25)
--- NOTE | 2019-01-27 09:35 | NUR ---
PT TRANSPORTED TO MRI VIA BED,PAIN LEVEL 4 MEDICATED
--- NOTE | 2019-01-27 10:33 | NUR ---
PT RETURNED TO ROOM VIA BED ,NO FUTHER C/O PAIN
--- NOTE | 2019-01-27 10:50 | Diagnostic Imaging Report ---
EXAMINATION: MRI of the brain without contrast. HISTORY: Alteration of consciousness, possible normal pressure hydrocephalus COMPARISON: Head CT 01/22/2019 TECHNIQUE: Sagittal T2; axial DWI, T2, FLAIR, T1-IR, T2 gradient echo; coronal FLAIR. IMAGE QUALITY: Adequate. FINDINGS: Parenchyma: 1. Moderate to severe confluent periventricular, walker radiata and centrum semiovale white matter T2 and FLAIR hyperintense foci, most likely nonspecific chronic microvascular ischemic changes. Similar findings in the central hguo. 2. No mass, hemorrhage, acute or chronic infarcts. Skull: Unremarkable. Vessels: Expected flow voids present in the major arteries and dural sinuses. Extra-axial spaces: No abnormal signal intensity or mass effect. Brain volume: Within normal limits for age. Ventricles: Mild ventriculomegaly, that is slightly out of proportion to the size of the cortical sulci, thinning and upward displacement of the corpus callosum, with relative partial effacement of the vertex region sulci. Some degree of normal pressure hydrocephalus cannot be excluded in the appropriate clinical setting. Foramen magnum: Unremarkable. Sella: Unremarkable. Paranasal / mastoid sinuses: No significant inflammatory disease. IMPRESSION: 1. No acute infarcts. 2. 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 3. Moderate chronic microvascular ischemic changes. Signed by: Dr. Silvia Reynolds M.D. on 01/27/2019 10:46 AM
--- NOTE | 2019-01-27 12:27 | NUR ---
EDUCATED ABOUT IMM, SIGNED, FILED IN CHART, WITH COPY LEFT WITH FAMILY AT BEDSIDE.
--- NOTE | 2019-01-27 13:55 | NUR ---
TRANSPORTED TO IR VIA BED
[2019-01-27] MEDS ORDERED: LIDOCAINE HCL 1% LOCAL INJ 20 ML VIAL ONE (14:10)
--- NOTE | 2019-01-27 15:25 | NUR ---
PT RETURNED TO ROOM DR REEVES HERE,PHYSICAL THERAPY HERE AMBULATED PT IN [place] TOLERATED WELL.
--- NOTE | 2019-01-27 16:34 | Diagnostic Imaging Report ---
PROCEDURE: Lumbar puncture Procedural Personnel Attending physician(s): Winston Azar MD Fellow physician(s): None Resident physician(s): None Advanced practice provider(s): None Pre-procedure diagnosis: Normal pressure hydrocephalus. Post-procedure diagnosis: Same Indication: Reported normal pressure hydrocephalus. Additional clinical history: None Complications: No immediate complications. IMPRESSION: Fluoroscopically guided lumbar puncture. Opening pressure of 8 mmHg. Fluid removed and sent for further analysis. PROCEDURE SUMMARY: - Fluoroscopically guided lumbar puncture at L4-5. - Opening pressure measured at 8 mmHg PROCEDURE DETAILS: Pre-procedure Consent: Informed consent for the procedure including risks, benefits and alternatives was obtained and time-out was performed prior to the procedure. Preparation: The site was prepared and draped using maximal sterile barrier technique including cutaneous antisepsis. Anesthesia/sedation Level of anesthesia/sedation: Local 1% lidocaine Lumbar Puncture Basket Machine Operator images were obtained. Under image guidance, a 20-gauge spinal needle was initially advanced toward the thecal space at the L3-4 level. Access at this level was not possible due to extensive heterotopic ossification and spinal fusion hardware. Attempt was then made at the L4-5 level. A needle was advanced to the thecal space. Opening pressure was measured and CSF was obtained for further analysis. A total of 30 cc CSF was removed. Target level: L4-5 Radiation Dose Fluoroscopy time (minutes): 2.4 Reference air kerma (mGy): 30.5 Additional Details Additional description of procedure: None Equipment details: None Specimens removed: 30 cc blood-tinged CSF Estimated blood loss (mL): Less than 10 Standardized report: [email or web address] Attestation Signer name: Winston Azar MD I attest that I was present for the entire procedure. I reviewed the stored images and agree with the report as written. Signed by: Winston Azar MD on 01/27/2019 4:30 PM
[2019-01-27 16:39] LABS: APPEARANCE,CSF BLOODY (CLEAR); COLOR,CSF RED (COLORLESS); TOTAL PROTEIN,CSF 76.5 mg/dL (15-40); TUBE NUMBER 3
[2019-01-27 16:41] LABS: WHITE BLOOD CELL,CSF 99 cells/uL (0-5)
--- NOTE | 2019-01-27 17:30 | NUR ---
PT ASSISTED UP TO CHAIR TOLERATED WELL
--- NOTE | 2019-01-27 18:35 | NUR ---
PT RESTING NO S/S DISCOMFORT,SCHMID TO BSD ,AIXA URINE
--- NOTE | 2019-01-27 19:15 | NUR ---
BS rounds completed with morning nurse. Pt alert to name. Lying in bed HOB 30 degrees. Denies pain at this time. Call cui within reach. Bed low and locked. Bed alarm on. Will continue to monitor.
[2019-01-28] VITALS (8 sets, daily range): BP systolic 139–179; BP diastolic 64–81
[2019-01-28] MEDS: CEFEPIME 1GM/NS 0.9% 50 ML 50 ML IV SCH (01:00)
[2019-01-28] MEDS: METRONIDAZOLE 750MG/NS 150ML 150 ML IV SCH ×3 (02:00→17:45)
[2019-01-28] MEDS: INSULIN REGULAR, HUMAN 100 UNIT/1 ML 3ML VIAL SQ SCH ×7 (07:30→20:43)
[2019-01-28] MEDS: METFORMIN HCL 500 MG TAB PO SCH ×2 (08:00→17:44)
[2019-01-28] MEDS: NPH, HUMAN INSULIN ISOPHANE 100 UNIT/1 ML 3ML VIAL SQ SCH ×2 (08:00→17:00)
[2019-01-28] MEDS: SITAGLIPTIN 100 MG TAB PO SCH (09:00)
[2019-01-28] MEDS: GABAPENTIN 400 MG CAP PO SCH ×4 (09:00→20:43)
[2019-01-28] MEDS: FINASTERIDE 5 MG TAB PO SCH (09:00)
[2019-01-28] MEDS: DULOXETINE HCL 30 MG DELAYED RELEASE PO SCH (09:00)
[2019-01-28] MEDS: AMLODIPINE BESYLATE 5 MG TAB PO SCH (09:00)
[2019-01-28] MEDS: ASPIRIN 81 MG CHEW TAB PO SCH (09:00)
[2019-01-28] MEDS: FLECAINIDE ACETATE 100 MG TAB PO SCH ×2 (09:00→17:45)
[2019-01-28] MEDS: PROPRANOLOL HCL 60 MG ER CAP PO SCH ×2 (09:00→17:45)
--- NOTE | 2019-01-28 09:00 | NUR ---
pt assisted up to chair tolerated well min assist,instreucted pt to call for assistance if he needs anything acknowledge understanding.
--- NOTE | 2019-01-28 09:40 | NUR ---
i was a nurses station heard noise in pt [id number] pt had fallen leaving br,assisted pt up,scrape noted to rt knee,no other injuries noted,vs 166/70,54,20 ,denies pain.notified dr waldrop.
--- NOTE | 2019-01-28 09:48 | Progress Note ---
DATE: SUBJECTIVE: The patient is a 68-year-old male, who comes in with diverticulitis, urinary tract infection with E coli. Currently, the patient is awake and alert. The patient had a lumbar puncture yesterday. Post lumbar puncture, the patient is able to ambulate more further. Neurological evaluation has been done and neurosurgical evaluation has been done. Possible VEHICLE DYNAMICS ENGINEER shunt on a later date. The patient currently is asymptomatic. Sepsis is resolved. OBJECTIVE: VITAL SIGNS: Temperature is 96.2, pulse of 55, respirations 20, and blood pressure is 179/81. HEENT: Normocephalic and atraumatic. Pupils are reactive to light and accommodation. CVS: S1 and S2 normal. Regular rate and rhythm. ABDOMEN: Nontender and nondistended. EXTREMITIES: No clubbing no cyanosis. Decreased sensation in the lower extremities. LABORATORY VALUES: White count is down to 11.87. Chemistries; blood sugars have been running in the normal range between 100 to 160s. Microbiology as mentioned above. E coli is sensitive to cefepime. MEDICATIONS: Currently metronidazole, flecainide, metformin, propranolol, Januvia, amlodipine, tamsulosin, and hydrocodone as needed, and gabapentin 800 mg. ASSESSMENT AND PLAN: 1. 68-year-old gentleman with diverticulitis, which is better. Continue with IV antibiotics. 2. Urinary tract infection. Escherichia coli. Continue cefepime. 3. Dementia, incontinence, gait instability, lumbar puncture demonstrated betterment of his gait, possible VEHICLE DYNAMICS ENGINEER shunt to improvise on his normal-pressure hydrocephalus. 4. Hypertension. Continue with antihypertensive and CV medications. We will trend his blood pressure, if it is still high, we will go ahead and change medications or increase medication at this time. We will continue to monitor the patient. Further recommendation per clinical course. We will follow up with Neurology, Neurosurgery and ID. MD SHERIF Cardenas/SOWMYA /[id number]
--- NOTE | 2019-01-28 10:18 | NUR ---
Spoke with Dr. Ribera regarding therapy recommendation for inpatient rehab. New order for Dr. Sparks consult for rehab
--- NOTE | 2019-01-28 15:45 | NUR ---
RECEIVED ORDER FOR INPT REHAB. MET W PT AND SPOUSE AT THE BEDSIDE. DISCUSSED CHOICE FOR INPT REHAB. PT AND SPOUSE STATE THEY THOUGHT DR. SCHROEDER WOULD BE PERFORMING SURGERY AT [facility]; [place]. ASKED THAT WE VERIFY FIRST, BEFORE THEY SIGNED CHOICE. \ INFORMED PT THAT MDR ROUNDS DISCUSSED SURGERY BEING PERFORMED AT [facility] ON SUNDAY. CM AGREED TO F/U ON WHERE SURGERY WILL BE PERFORMED.
--- NOTE | 2019-01-28 17:22 | NUR ---
Nutrition LOS Note RD Recommendation(s) for Physician / Nutrition Prescription: -Rec adding low fiber to ADA 1800 diet Plan of Care: Patient has been screened and assessed for nutrition risk. At this time, the patient does not pose any nutrition risk. No further nutrition intervention is warranted at this time. Will re-evaluate if consulted by medical staff. Nutrition reason for involvement: LOS Primary Dx: diverticulitis, UTI PMH: depression, neuropathy, chronic pain syndrome, diabetes mellitus, hypertension, BPH, hyperlipidemia, and arrhythmias Ht: 67in Wt: 221lb BMI: 34.6kg/m2 IBW: 148lb +/- 10% RD Assessment: (01/28) 68yo M, who was admitted for UTI and sepsis. Visited pt in the room. Pt reported good appetite. PCT recorded 75-100% meal intake since admission. No GI complains reported. Pt denied any chewing or swallowing difficulty. Weight has been stable. Will continue to monitor and follow. Malnutrition Evaluation (01/28/2019) The patient does not meet criteria for a specified degree of malnutrition at this time. Will re-evaluate at follow-up as appropriate. Diet Education Needs Assessment: Diet education not indicated. Nutrition Care Level: Low Miri Byrne, MS, RD, LD
--- NOTE | 2019-01-28 17:47 | NUR ---
pt up in bed denies pain,no distress ntoed.
--- NOTE | 2019-01-28 19:20 | NUR ---
Patient visited in room during nursing rounds. Patient alert x2 (i.e. tends to forget recent memory). Up with assist prn. On scheduled IV antibiotics. [place] in place for urinary retention. Family at bedside visiting pt. Bed alarm active. No distress or discomfort noted. Will monitor closely. Call cui within reach.
[2019-01-28] MEDS: TAMSULOSIN HCL 0.4 MG CAP PO SCH (20:43)
[2019-01-29] VITALS (8 sets, daily range): BP systolic 140–168; BP diastolic 65–76
[2019-01-29] MEDS: CEFEPIME 1GM/NS 0.9% 50 ML 50 ML IV SCH (01:00)
--- NOTE | 2019-01-29 01:23 | Consultation ---
DATE OF CONSULTATION: 01/28/2019 I would like to thank Dr. Yanes for asking me see Mr. Alvarez in consultation. REASON FOR CONSULTATION: 1. Normal-pressure hydrocephalus, status post lumbar puncture. 2. UTI. 3. History of AFib. 4. History of diabetes . HISTORY: Mr. Alvarez is a 68-year-old male with history of hypertension, hyperlipidemia, diabetes, and peripheral neuropathy, who came into the hospital on January 22 with sepsis secondary to UTI and diverticulitis. The patient was seen by Dr. Yanes for evaluation of normal-pressure hydrocephalus. Apparently, the patient about a year ago, underwent lumbar surgery that was on November 19, 2017. For the first three weeks, he was doing relatively well, walking and getting around, but then he started having back pain, decline in function. The patient has also had significant cognitive decline over the past 6 to 8 months or so and having difficulty with gait and mobility. The patient have been having problems with back pain and was scheduled to undergo surgery again. However, during the course of this day, he was found to have a UTI, but also normal-pressure hydrocephalus, evaluated by Dr. Yanes, and underwent an LP with a large volume removal yesterday and according to the family they had noticed improved gait. His cognition was improved, but he was still somewhat confused. The patient is currently being treated for UTI and I am being asked to evaluate for possible rehab care following his neurosurgery if he does go for GAS TURBINE POWERPLANT MECHANIC shunting. PAST MEDICAL HISTORY: Includes diabetes, hypertension, hyperlipidemia, history of AFib, peripheral neuropathy, depression, BPH, and chronic back pain. PAST SURGICAL HISTORY: Include lumbar surgery procedures and cataract removal. SOCIAL HISTORY: Lives in an assisted living facility or alf facility with his in 2nd floor, but there is elevator access. He was somewhat ambulatory, but having difficulty and his would have to monitor him and watch him as he does have a history of trying to get out of bed on his own. In fact, today he fell. HABITS: Nonsmoker, nondrinker. FAMILY HISTORY: Father had bone cancer. Mother had lung cancer. Diabetes runs in the family and he has a sister, who has Alzheimer's dementia. The son has bipolar disorder. ALLERGIES: SOMA, LINCOCIN. CONSTITUTIONAL REVIEW OF SYSTEMS: He has had some fevers, he has had some chills, but he has also had been treated for UTI. He has had neuropathy of lower extremities. He has chronic back pain. He has some urinary incontinence, for which he is on a England right now. He has had some confusion. Rest of review of systems is essentially negative. LABORATORY STUDIES: White cell count now is down to 11.87, when he came in was 25, hemoglobin of 13, hematocrit 38.5, platelets of 246. Glucose of 167. UA positive for nitrite, greater than 50 white blood cells per high-power field. IMAGING: The patient had a brain MRI, which showed no acute infarction, disproportionate ventriculomegaly, which may relate to communicating normal-pressure hydrocephalus, chronic moderate microvascular changes. He had chest x-ray, which showed bibasilar subsegmental atelectasis. PHYSICAL EXAMINATION: GENERAL: The patient is sleepy, but easily arousable. He is not oriented only to himself. EYES: Gaze conjugate. Oral: No dysarthria. NECK: Nontender with palpation. He has not complained of any pain to his arms, legs, neck, or knees secondary to the fall today. Snerap-wxxa-zwqavj tracing he had a hard time following commands. He had a difficult time with multi step commands such as xdyxhb-orwb-dixjlg tracing, but when he just touch his nose, accurate in both hands. Clonus negative bilaterally. HEART: Regular rate and rhythm. LUNGS: Diminished breath sounds. ABDOMEN: Nondistended. EXTREMITIES: He has actually moves the arms and legs bilaterally. Functional movement to the arms as well as the legs. 4+ to 5/5 strength in the arms and 5/5 strength in the legs throughout without focal deficit. Clonus negative bilaterally. Unable to ambulate him. IMPRESSION: 1. Normal-pressure hydrocephalus. Possible GAS TURBINE POWERPLANT MECHANIC shunting in the near future. 2. Urinary tract infection, which maybe contributing to his confusion. 3. The patient with atrial fibrillation. 4. Diabetes. 5. Peripheral neuropathy. 6. The patient with some dementia. 7. Chronic back pain. 8. History of depression. PLAN: 1. Continue treating for UTI. 2. Awaiting possibility of GAS TURBINE POWERPLANT MECHANIC shunting. Afterwards, if he does not improve, should consider inpatient rehab for PT, OT, and speech services in order to try to optimize functional level. Precautions falls . The patient's family plans to take him home. We will follow along with you. Thank you once again for allowing me to participate in the care of this pleasant, but unfortunate patient. Long discussion with the family, they are agreeable with plan of care. Over 60 minutes spent reviewing chart and evaluating the patient. Noah Sparks DO RPL/MODL /[id number]
[2019-01-29] MEDS: METRONIDAZOLE 750MG/NS 150ML 150 ML IV SCH ×3 (02:01→18:15)
[2019-01-29] MEDS: INSULIN REGULAR, HUMAN 100 UNIT/1 ML 3ML VIAL SQ SCH ×7 (07:30→20:49)
--- NOTE | 2019-01-29 07:31 | NUR ---
PATIENT IN BED RESTING WITH EYES CLOSED, NO RESPIRATORY DISTRESS OBSERVED. SKIN TEAR NOTED TO RIGHT KNEE WITH DRESSING INTACT, SCHMID CATHETER DRAINING CLEAR YELLOW URINE, TELEMETRY BOX IN PLACE. BED IN LOWER POSITION, CALL LIGHT AT REACH.
--- NOTE | 2019-01-29 07:35 | Progress Note ---
DATE: SUBJECTIVE: The patient is a 68-year-old male, who comes in with urinary tract infections, sepsis, and also was found to have dementia, incontinence, and gait abnormalities. Consult with Dr. Yanes was done. Consult with Dr. Diane Mccord. Large volume spinal tap and improvisation of his gait was noted. Possible FITNESS TEACHER shunt later this week is planned. Otherwise, the patient is feeling good, complaints talkative and more alert. OBJECTIVE: VITAL SIGNS: Temperature is 96.5, pulse 59, respirations 17, blood pressure is 140/73, pulse oximetry of 95%. HEENT: Normocephalic, atraumatic. Pupils reactive to light and accommodation. CVS: S1 and S2 normal. Regular rate and rhythm. ABDOMEN: Nontender, nondistended. EXTREMITIES: No clubbing. No cyanosis. Trace edema. LABORATORY VALUES: The patient's hemoglobin and hematocrit have been stable. Blood sugars have been running normal. ASSESSMENT: 1. A 68-year-old gentleman with diverticulitis, better. Continue with IV antibiotics. 2. Urinary tract infection with Escherichia coli. Continue on cefepime. 3. Dementia, incontinence, and gait instability, status post lumbar puncture with demonstration of better gait. Possible FITNESS TEACHER shunt depending on Dr. Yanes. 4. Hypertension and diabetes. Continue on CV medications and diabetic medication. Further recommendation per clinical course. MD SHERIF Cardenas/LAWRENCEL /[id number]
[2019-01-29] MEDS: NPH, HUMAN INSULIN ISOPHANE 100 UNIT/1 ML 3ML VIAL SQ SCH ×2 (08:00→17:00)
--- NOTE | 2019-01-29 08:17 | NUR ---
CALL TO DR. SCHROEDER'S OFFICE @ [phone]. NO ANSWER; . OFFICE OPENS @ 9AM. WILL F/U.
[2019-01-29] MEDS: FLECAINIDE ACETATE 100 MG TAB PO SCH ×2 (09:22→17:00)
[2019-01-29] MEDS: ASPIRIN 81 MG CHEW TAB PO SCH (09:22)
[2019-01-29] MEDS: SITAGLIPTIN 100 MG TAB PO SCH (09:22)
[2019-01-29] MEDS: GABAPENTIN 400 MG CAP PO SCH ×4 (09:22→20:55)
[2019-01-29] MEDS: METFORMIN HCL 500 MG TAB PO SCH ×2 (09:22→17:33)
[2019-01-29] MEDS: FINASTERIDE 5 MG TAB PO SCH (09:22)
[2019-01-29] MEDS: AMLODIPINE BESYLATE 5 MG TAB PO SCH (09:22)
[2019-01-29] MEDS: DULOXETINE HCL 30 MG DELAYED RELEASE PO SCH (09:22)
[2019-01-29] MEDS: PROPRANOLOL HCL 60 MG ER CAP PO SCH ×2 (09:22→17:33)
--- NOTE | 2019-01-29 11:11 | NUR ---
EDUCATED ABOUT IMM, SIGNED, FILED IN CHART, WITH COPY LEFT WITH FAMILY AT BEDSIDE.
--- NOTE | 2019-01-29 11:30 | NUR ---
PATIENT AMBULATING IN HALLWAY WITH PHYSICAL THERAPY. BACK IN BED WITH CALL LIGHT AT REACH. FAMILY MEMBER AT BED SIDE.
--- NOTE | 2019-01-29 16:50 | NUR ---
PATIENT OUT OF BED TO CHAIR EATING DINNER, NO COMPLAIN VOICED. AT BED SIDE, CALL LIGHT AT REACH. INSTRUCTED TO CALL FOR ASSISTANCE NEEDED.
--- NOTE | 2019-01-29 19:00 | NUR ---
patient received awake, alert, lying quietly in bed. family noted at the bedside. vss. no c/o pain noted. pm assessment complete. patient instructed to call for assistance when needed. family noted at the bedside.
--- NOTE | 2019-01-29 19:15 | NUR ---
here to see patient. patient to be npo after mn for ordered procedure tomorrow. patient/daughter verbalize understanding of this.
[2019-01-29] MEDS: TAMSULOSIN HCL 0.4 MG CAP PO SCH (20:55)
[2019-01-29 21:25] LABS: INR 0.94; PROTHROMBIN TIME 13.1 seconds (11.9-14.5)
[2019-01-30] VITALS (8 sets, daily range): BP systolic 156–191; BP diastolic 68–95
[2019-01-30] MEDS: CEFEPIME 1GM/NS 0.9% 50 ML 50 ML IV SCH (01:00)
[2019-01-30] MEDS: METRONIDAZOLE 750MG/NS 150ML 150 ML IV SCH ×3 (02:00→18:01)
[2019-01-30 07:14] LABS: BASOPHILS # (AUTO) 0.1 (0.0-0.1); EOSINOPHILS # (AUTO) 0.3 (0.0-0.4); EOSINOPHILS % 3.2 % (0.0-6.0); HEMATOCRIT 39.7 % (38.2-49.6); HEMOGLOBIN 13.4 g/dL (14.0-18.0); LYMPHOCYTES # (AUTO) 2.2 (1.0-3.2); LYMPHOCYTES % 21.1 % (18.0-39.1); MEAN CORPUSCULAR HEMOGLOBIN 30.4 pg (28-32); MEAN CORPUSCULAR HGB CONC 33.8 g/dL (31-35); MONOCYTES # (AUTO) 1.1 (0.2-0.8); MONOCYTES % 10.4 % (4.4-11.3); NEUTROPHILS # (AUTO) 6.7 (2.1-6.9); NEUTROPHILS % 63.3 % (38.7-80.0); PLATELET COUNT 287 x10e3/uL (140-360); RED BLOOD COUNT 4.41 x10e6/uL (4.3-5.7); RED CELL DISTRIBUTION WIDTH 13.4 % (11.7-14.4)
--- NOTE | 2019-01-30 07:27 | NUR ---
PATIENT IN BED RESTING WITH EYES CLOSED, NO RESPIRATORY DISTRESS OBSERVED. SCHMID CATHETER DRAINING DARK [place] URINE. SKIN TEAR TO RIGHT KNEE HEALING. BED IN LOWER POSITION, CALL LIGHT AT REACH.
[2019-01-30 07:29] LABS: ANION GAP 12.5 mmol/L (8-16); BLOOD UREA NITROGEN 12 mg/dL (7-26); BUN/CREATININE RATIO 17 (6-25); CALCIUM 8.6 mg/dL (8.4-10.2); CARBON DIOXIDE 25 mmol/L (22-29); CHLORIDE 102 mmol/L (98-107); CREATININE, SERUM 0.71 mg/dL (0.72-1.25); EST GLOMERULAR FILTRATION RATE > 60 ML/MIN (60-); GLUCOSE 132 mg/dL (74-118); POTASSIUM 3.5 mmol/L (3.5-5.1); SODIUM 136 mmol/L (136-145)
[2019-01-30] MEDS: INSULIN REGULAR, HUMAN 100 UNIT/1 ML 3ML VIAL SQ SCH ×7 (07:30→20:50)
[2019-01-30] MEDS: METFORMIN HCL 500 MG TAB PO SCH ×2 (08:00→17:47)
[2019-01-30] MEDS: NPH, HUMAN INSULIN ISOPHANE 100 UNIT/1 ML 3ML VIAL SQ SCH ×2 (08:00→17:00)
[2019-01-30] MEDS: SITAGLIPTIN 100 MG TAB PO SCH (09:00)
[2019-01-30] MEDS: FLECAINIDE ACETATE 100 MG TAB PO SCH ×2 (09:00→17:48)
[2019-01-30] MEDS: GABAPENTIN 400 MG CAP PO SCH ×4 (09:00→21:10)
[2019-01-30] MEDS: PROPRANOLOL HCL 60 MG ER CAP PO SCH ×2 (09:00→17:47)
[2019-01-30] MEDS ORDERED: BUPIVACAINE 0.5%/EPI 30 ML SDV INJ ONE (09:21)
[2019-01-30] MEDS ORDERED: BACITRACIN 50,000 UNIT VIAL ONE (09:21)
[2019-01-30] MEDS ORDERED: THROMBIN FOR SOLN 5,000 UNIT VIAL ONE (09:21)
--- NOTE | 2019-01-30 09:40 | Progress Note ---
DATE: SUBJECTIVE: A 68-year-old gentleman comes in with acute diverticulitis, urinary tract infection, found to have normal-pressure hydrocephalus and the patient has gone for surgery today with Dr. Yanes for a LOGISTICS CLERK shunt. Currently afebrile. OBJECTIVE: VITAL SIGNS: Temperature 98.4, pulse 61, respirations of 17, blood pressure is 171/95. HEENT: Normocephalic, atraumatic. Pupils reactive to light and accommodation. CVS: S1, S2 normal. Regular rate and rhythm. LUNGS: Clear to auscultation. ABDOMEN: Nontender, nondistended. EXTREMITIES: Trace edema. LABORATORY VALUES: Stable. Hemoglobin is 13.0, [place] [address] [place] [address]. Chemistries stable. Coags are stable too. ASSESSMENT: This is a 68-year-old with diverticulitis. 1. Continue antibiotic for Escherichia coli urinary tract infection. Continue cefepime. 2. Dementia, incontinence, and gait instability, status post lumbar puncture with better gait. LOGISTICS CLERK shunt today by Dr. Yanes. 3. Hypertension and diabetes. Continue with same medications. Further recommendation per clinical course. We will continue to monitor the patient. 4. Disposition. The patient will be discharged to SNF when status post surgery and acceptable. MD SHERIF Cardenas/MODL /[id number]
--- NOTE | 2019-01-30 10:19 | NUR ---
PATIENT OFF UNIT TO OR.
[2019-01-30] MEDS ORDERED: NEOSTIGMINE 1 MG/ML 10ML VIAL ONE (10:46)
--- NOTE | 2019-01-30 10:55 | NUR ---
SPOKE WITH FAMILY LET THEM KNOW SNF ORDER WAS IN, ASKED THAT I SPEAK WITH DAUGHTER. DAUGHTER ARRIVED AND THE PT WAS TAKEN TO THE OR, FAMILY WANTS TO WAIT UNTIL AFTER PT OUT OF OR TO MAKE DECISION. WILL CALL BY END OF DAY WITH A CHOICE.
[2019-01-30] MEDS ORDERED: ZOLPIDEM TARTRATE 5 MG TAB PO PRN (12:45)
[2019-01-30] MEDS ORDERED: OXYCODONE/ACETAMINOPHEN 5-325 1 EACH TABLET PO PRN (12:45)
[2019-01-30] MEDS ORDERED: ONDANSETRON HCL INJ 2MG/ML 2ML 2 MG/ML VIAL IV PRN (12:45)
[2019-01-30] MEDS ORDERED: ACETAMINOPHEN 325 MG TAB PO PRN (12:45)
[2019-01-30] MEDS ORDERED: MAGNESIUM/ALUMINUM/SIMETHICONE 30 ML UDC PO PRN (12:45)
[2019-01-30] MEDS ORDERED: MORPHINE SULFATE 5 MG/ML VIAL IM PRN (12:45)
[2019-01-30] MEDS ORDERED: PROMETHAZINE HCL (IM) 25 MG/ML VIAL IM PRN (12:45)
[2019-01-30] MEDS ORDERED: MORPHINE SULFATE INJ 4 MG/ML INJ 1ML IM PRN (13:00)
[2019-01-30] MEDS ORDERED: FENTANYL CITRATE/PF 100MCG/2 ML INJ ONE ×2 (13:09→19:34)
--- NOTE | 2019-01-30 13:35 | NUR ---
PATIENT BACK TO UNIT FROM OR. REPORT RECEIVED FROM CIRILO MERCADO. PATIENT HAD A CLEANING MATRON SHUNT PLACED BEHIND THE RIGHT EAR. ALERT AND VERBALLY RESPONSIVE, DENIED PAIN AT THIS TIME. DRESSING BEHIND RIGHT EAR WITH SMALL AMOUNT OF PINK DRAINAGE. V/S 96.5-58-18-163/71 AND 94% ON RA. BED IN LOWER POSITION AND LOCKED, CALL LIGHT AT REACH.
[2019-01-30] MEDS: AMLODIPINE BESYLATE 5 MG TAB PO SCH (14:26)
[2019-01-30] MEDS: DULOXETINE HCL 30 MG DELAYED RELEASE PO SCH (14:26)
[2019-01-30] MEDS: FINASTERIDE 5 MG TAB PO SCH (14:26)
[2019-01-30] MEDS: CEFAZOLIN SOD 1 GM/NS 50ML 50 ML IV SCH ×2 (14:27→22:27)
[2019-01-30] MEDS: LACTATED RINGER'S 1,000 ML IV SCH ×2 (14:27→21:10)
--- NOTE | 2019-01-30 14:53 | Operative Report ---
DATE OF PROCEDURE: 01/30/2019 SURGEON: Burak Yanes MD PREOPERATIVE DIAGNOSIS: Normal-pressure hydrocephalus. POSTOPERATIVE DIAGNOSIS: Normal-pressure hydrocephalus. PROCEDURE: Insertion of right parietal ventriculoperitoneal shunt. ANESTHESIA: General. INDICATIONS: The patient is a 68-year-old man, who presents with normal-pressure hydrocephalus and was taken to the operating room for a placement of a ventriculoperitoneal shunt. PROCEDURE IN DETAIL: After induction of anesthesia, the patient was placed on the operating table in supine position with the head of the bed elevated 20 degrees. The head was fixed in the Mertens head inspector and rotated to the left, so that the right retromastoid and parietal region of the scalp were in a horizontal plane. The right parietal region of the scalp and the right side of the neck, chest, and abdomen were clipped, prepped and draped in sterile fashion. A small linear incision was created over the Keen's point 3 cm above and 3 cm posterior to the top of the right ear. A small bur hole was created in this region with a 5 mm cutting bur. A subcutaneous pocket was developed inferior to the incision. A separate incision was created transversely over the right upper quadrant of the abdomen and deepened through the abdominal muscle fascia layers to reach the peritoneum. The peritoneum was tented between two forceps and incised. Intraperitoneal contents were visualized. A shunt passer was then used to create a subcutaneous tunnel between the scalp and the abdominal incisions. A Medtronic Delta valve performance level of 1.5 was selected and tested and irrigated with bacitracin saline. This was tunneled from the scalp incision to the abdominal incision. The dura was then opened. The surface of the brain was bipolar coagulated. A 5 cm ventricular catheter equipped with a snap adapter was selected and passed into the brain in an orientation perpendicular to the surface of the brain. Free flow of CSF was obtained upon first pass. The ventricular catheter was then connected to the shunt using the snap adapter. The shunt was then pumped and flow of CSF of its distal end was confirmed. The distal end of the shunt was placed inside the peritoneal cavity. A pursestring suture was tied in the perineum. All muscle and fascial layers were closed with 0 Vicryl sutures. Subcutaneous layer was closed with 2-0 Vicryl sutures. The skin was closed with marlena. The scalp incision was irrigated and closed with 3-0 Vicryl sutures and marlena. Dressings were applied. The patient was awakened, extubated, and taken to postanesthesia care unit in stable condition. No intraoperative complications were encountered. Estimated blood loss was minimal. Burak Yanes MD PP/SOWMYA /[id number]
--- NOTE | 2019-01-30 15:54 | NUR ---
PATIENT IN BED TALKING TO FAMILY MEMBER, NO DISTRESS NOTED. DRESSING REMAINS INTACT BEHIND THE RIGHT EAR. DENIED PAIN AT THIS TIME. IV FLUID INFUSING ORDERED. BED IN LOWER POSITION, CALL LIGHT AT REACH.
[2019-01-30] MEDS ORDERED: MIDAZOLAM HCL 2 MG/2 ML VIAL ONE (19:34)
[2019-01-30] MEDS ORDERED: LIDOCAINE HCL 2% LOCAL INJ 5 ML SDV VIAL INJ ONE (19:38)
[2019-01-30] MEDS ORDERED: NEOSTIGMINE 5 MG/5ML SYR ONE (19:38)
[2019-01-30] MEDS ORDERED: LIDOCAINE HCL 2% JELLY 5 ML TUBE ONE (19:38)
[2019-01-30] MEDS ORDERED: ONDANSETRON HCL INJ 2MG/ML 2ML 2 MG/ML VIAL ONE (19:38)
[2019-01-30] MEDS ORDERED: ROCURONIUM BROMIDE 10 MG/ML 5ML VIAL ONE (19:38)
[2019-01-30] MEDS ORDERED: SEVOFLURANE INHAL SOLN 250 ML PEN BTL ONE (19:38)
[2019-01-30] MEDS ORDERED: PROPOFOL IV EMULSION 10 MG/ML 20 ML VIAL ONE (19:38)
[2019-01-30] MEDS ORDERED: GLYCOPYRROLATE INJ 1MG/ 5 ML SYR ONE (19:38)
[2019-01-30] MEDS ORDERED: DEXAMETHASONE SOD PHOS INJ 4 MG/ML VIAL ONE (19:38)
[2019-01-30] MEDS ORDERED: EPHEDRINE SULFATE INJ 50 MG/10 ML SYR ONE (19:38)
[2019-01-30] MEDS: TAMSULOSIN HCL 0.4 MG CAP PO SCH (21:10)
[2019-01-31] VITALS (7 sets, daily range): BP systolic 123–162; BP diastolic 64–79
[2019-01-31] MEDS: CEFEPIME 1GM/NS 0.9% 50 ML 50 ML IV SCH (00:33)
[2019-01-31] MEDS: METRONIDAZOLE 750MG/NS 150ML 150 ML IV SCH ×3 (01:41→18:07)
[2019-01-31] MEDS: CEFAZOLIN SOD 1 GM/NS 50ML 50 ML IV SCH (05:10)
[2019-01-31] MEDS: LACTATED RINGER'S 1,000 ML IV SCH ×3 (05:33→21:05)
--- NOTE | 2019-01-31 07:11 | NUR ---
BED SIDE SHIFT REPORT GIVEN TO THE ONCOMING RN MARIO.STABLE CONDITION.
[2019-01-31] MEDS: INSULIN REGULAR, HUMAN 100 UNIT/1 ML 3ML VIAL SQ SCH ×7 (07:44→21:00)
[2019-01-31] MEDS: NPH, HUMAN INSULIN ISOPHANE 100 UNIT/1 ML 3ML VIAL SQ SCH ×2 (07:45→17:00)
--- NOTE | 2019-01-31 09:05 | NUR ---
Patient up in bed, alert with no distress, dressing evp operations shunt is intact on posterior head and abdomen, no leakage noted, denies any pain , not in any distress
[2019-01-31] MEDS: METFORMIN HCL 500 MG TAB PO SCH ×2 (09:15→16:50)
[2019-01-31] MEDS: DULOXETINE HCL 30 MG DELAYED RELEASE PO SCH (09:15)
[2019-01-31] MEDS: PROPRANOLOL HCL 60 MG ER CAP PO SCH ×2 (09:15→17:16)
[2019-01-31] MEDS: FINASTERIDE 5 MG TAB PO SCH (09:16)
[2019-01-31] MEDS: SITAGLIPTIN 100 MG TAB PO SCH (09:16)
[2019-01-31] MEDS: GABAPENTIN 400 MG CAP PO SCH ×4 (09:16→21:00)
[2019-01-31] MEDS: FLECAINIDE ACETATE 100 MG TAB PO SCH ×2 (09:16→16:48)
[2019-01-31] MEDS: AMLODIPINE BESYLATE 5 MG TAB PO SCH (09:16)
--- NOTE | 2019-01-31 12:57 | NUR ---
EDUCATED ABOUT IMM, SIGNED, FILED IN CHART, WITH COPY LEFT WITH FAMILY AT BEDSIDE.
[2019-01-31] MEDS ORDERED: ONDANSETRON HCL 4 MG ORAL DISINTEGRATING TAB PO PRN (15:00)
--- NOTE | 2019-01-31 15:50 | NUR ---
Removed England's catheter and put new one 16 Fr in, patient tolerated well, denies any discomfort, urine draining noted, secured well. at bed side
--- NOTE | 2019-01-31 19:30 | NUR ---
Patient visited in room during nursing rounds. Patient alert x2-3. Up with assist prn. On IVF (LR at 120ml/hr) and scheduled IV antibiotics. England (16fr) in place for urinary retention. Dressing on back of head (C/D/I0 and dressing on mid abdomen (C/D/I) s/p BIOMEDICAL FIELD SERVICE ENGINEER shunt placement. Bed alarm active. No distress or discomfort noted. Will monitor closely. Call cui within reach.
--- NOTE | 2019-01-31 20:09 | Progress Note ---
DATE: SUBJECTIVE: The patient is a 68-year-old male with a history of diverticulitis, history of urinary tract infection, sent for repeat shunt today done by Dr. Yanes. Doing well, no complaints. OBJECTIVE: VITAL SIGNS: Temperature is 97.4, pulse of 63, respirations of 18, blood pressure is 139/67. HEENT: Normocephalic, atraumatic. Pupils are reactive to light and accommodation. CVS: S1, S2 normal. Regular rate and rhythm. ABDOMEN: Nontender, nondistended. EXTREMITIES: No clubbing, no cyanosis, no edema. LABORATORY VALUES: Today's hemoglobin of 13.4, hematocrit of 39.7, white count is 10.60. Chemistries; sodium is 136, potassium is 3.5, BUN and creatinine 12 and 0.71. Glucose is in the 130s. ASSESSMENT AND PLAN: A 68-year-old male with diverticulitis, history of normal-pressure hydrocephalus and urinary tract infection. The patient is status post BOWL TOPPER shunt by Dr. Yanes. Continue on IV antibiotics, hypertension, and diabetes. Continue on same home medication. Disposition, discharge to SNF on Sunday. Further recommendation per clinical course. We will continue to monitor the patient and Dr. Saprks has assessed the patient for physical medicine and rehabilitation. MD SHERIF Cardenas/LAWRENCEL /[id number]
[2019-01-31] MEDS: TAMSULOSIN HCL 0.4 MG CAP PO SCH (21:00)
[2019-02-01] VITALS: BP 120/69
[2019-02-01] MEDS: CEFEPIME 1GM/NS 0.9% 50 ML 50 ML IV SCH (01:48)
[2019-02-01] MEDS: METRONIDAZOLE 750MG/NS 150ML 150 ML IV SCH ×2 (02:50→08:18)
[2019-02-01 04:00] VITALS: BP 196/93
--- NOTE | 2019-02-01 07:30 | NUR ---
PT IN BED RESTING NO DISTRESS NTOED ,DENIES PAIN,SCHMID TO BSD
[2019-02-01] MEDS: METFORMIN HCL 500 MG TAB PO SCH (08:14)
[2019-02-01] MEDS: DULOXETINE HCL 30 MG DELAYED RELEASE PO SCH (08:14)
[2019-02-01] MEDS: NPH, HUMAN INSULIN ISOPHANE 100 UNIT/1 ML 3ML VIAL SQ SCH (08:15)
[2019-02-01] MEDS: SITAGLIPTIN 100 MG TAB PO SCH (08:17)
[2019-02-01] MEDS: GABAPENTIN 400 MG CAP PO SCH (08:17)
[2019-02-01] MEDS: PROPRANOLOL HCL 60 MG ER CAP PO SCH (08:17)
[2019-02-01] MEDS: FINASTERIDE 5 MG TAB PO SCH (08:17)
[2019-02-01] MEDS: AMLODIPINE BESYLATE 5 MG TAB PO SCH (08:17)
[2019-02-01] MEDS: FLECAINIDE ACETATE 100 MG TAB PO SCH (08:18)
[2019-02-01 08:30] VITALS: BP 181/84
[2019-02-01 08:31] VITALS: BP 181/84
--- NOTE | 2019-02-01 11:00 | NUR ---
RTF GIVEN TO NURSE BRIDGET WITH NUMBER TO CALL REPORT AND ROOM NUMBER PASSR ON CHART AND IN PACKET CHOICE LETTER SIGNED FOR AMBULANCE BY PT AND CO-SIGNED BY DTR NOTIFIED PT AND DTR OF ROOM NUMBER [id number] AT [facility] CALLING FOR DC ORDERS
[2019-02-01 12:04] VITALS: BP 123/61
--- NOTE | 2019-02-01 14:55 | NUR ---
PT TRANSPORTED TO [facility] VIA [facility],SL IN PLACE BINU MARTINEZ TO BSD CLEAR YELLOW URINE
== END 2019-02-01 14:54 | DRG 981 ==
LOC: ER 21:28 → ERHOLD 23:59 → MED/SURG3 01-23 00:05
PROVIDERS: ADMIT Family Medicine; ATTEND Family Medicine
PROC: 009U3ZX Drainage of Spinal Canal, Percutaneous Approach, Diagnostic (ICD-10-PCS; 2019-01-27)
PROC: 00160J6 Bypass Cerebral Ventricle to Peritoneal Cavity with Synthetic Substitute, Open Approach (ICD-10-PCS; principal; 2019-01-30 11:00)
DX: T83.511A Infection and inflammatory reaction due to indwelling urethral catheter, initial encounter (principal); A41.9 Sepsis, unspecified organism; G93.41 Metabolic encephalopathy; R65.20 Severe sepsis without septic shock; K57.32 Diverticulitis of large intestine without perforation or abscess without bleeding; G91.9 Hydrocephalus, unspecified; N39.0 Urinary tract infection, site not specified; F32.9 Major depressive disorder, single episode, unspecified; G89.4 Chronic pain syndrome; E11.40 Type 2 diabetes mellitus with diabetic neuropathy, unspecified; Z79.4 Long term (current) use of insulin; E78.5 Hyperlipidemia, unspecified; N40.1 Benign prostatic hyperplasia with lower urinary tract symptoms; N39.498 Other specified urinary incontinence; I48.91 Unspecified atrial fibrillation; Z79.01 Long term (current) use of anticoagulants; E11.42 Type 2 diabetes mellitus with diabetic polyneuropathy; M54.9 Dorsalgia, unspecified; F03.90 Unspecified dementia, unspecified severity, without behavioral disturbance, psychotic disturbance, mood disturbance, and anxiety; R26.9 Unspecified abnormalities of gait and mobility; M54.5 Low back pain; B96.20 Unspecified Escherichia coli [E. coli] as the cause of diseases classified elsewhere
CPT/HCPCS: 36415; 62270; 70450; 70551; 71045; 74177; 74470; 77003; 80048; 80053; 81001; 82550; 82553; 82945; 82948; 83605; 84157; 84484; 85025; 85610; 85730; 87040; 87086; 87186; 87493; 89051; 93005; 96361; 97139; 99284; J0690; J0692; J1100; J1817; J2001; J2250; J2405; J2710; J3010; J3370; J7030; J7121; Q9967

== ENCOUNTER 2019-02-22 20:44 | Inpatient (IN) | payer MEDICARE ==
[~2019-02-22] VITALS: Ht 177.8 cm; Wt 93.4 kg
[~2019-02-22 20:44] MED LIST changes: +JANUVIA100 MG PO; +PROPRANOLOL HCL40 MG PO
--- OUTSIDE RECORDS SUMMARY | 2019-02-22 20:47 | XMS REPORT | Clinical Summary ---
Author Author [facility] Organization [facility] Address Unknown Phone Unavailable Care Team Providers Care Gum Maker Name Role Phone Jeremy Olivo MD PCP [...] Active metFORMIN (GLUCOPHAGE) Take 1,000 mg 0 08/03/ 1,000 mg tablet by mouth 2 8 (two) times a day. Active ramipril (ALTACE) 5 MG Take 5 mg by 0 08/01/ capsule mouth daily. 8 Active tamsulosin (FLOMAX) [...] the skin 2 (two) times a day. Active guaiFENesin (MUCINEX) 600 Take 1 tablet 0 02/13/201 mg tablet extended (600 mg 8 release 12hr total) by mouth 2 (two) times a day as needed (cough). 02/13/2019 gabapentin (NEURONTIN) Take 2 180 capsule 0 300 mg capsule capsules (600 8 mg total) by mouth 3 (three) times a day. 03/15/2018 ondansetron ODT Take 1 tablet 0 [...] for cramping for up to 30 days. 02/14/2019 amLODIPine (NORVASC) 5 mg Take 1 tablet 30 tablet 0 tablet (5 mg total) 8 by mouth daily. 03/15/2018 metoclopramide (REGLAN) 5 Take 1 tablet [...] for constipation for up to 30 days. 02/13/2019 sennosides-docusate Take 1 tablet 60 tablet 0 sodium (SENOKOT-S) 8.6-50 by mouth 2 8 mg per tablet (two) times a day. 02/27/2018 HYDROcodone-acetaminophen Take 2 0 (NORCO) 5-325 mg per tablets by 8 tablet mouth every 6 (six) hours as needed for moderate pain for up to 14 days. Max Daily Amount: 8 tablets 05/14/2018 indomethacin (INDOCIN) 25 Take 1 90 capsule 0 MG capsule capsule (25 8 mg total) by mouth 3 (three) times a day with meals for 90 days. 02/13/2019 clonIDINE (CATAPRES) 0.1 Take 1 tablet 0 MG tablet (0.1 mg 8 total) by mouth every 8 (eight) hours as needed for high blood pressure (SBP > 160). 02/27/2018 hydromorPHONE (DILAUDID) Take 1 tablet 0 [...] Care Team Description Date Type Specialty [place] Price, Spinal stenosis, lumbar region, with neurogenic claudication (Primary Dx) 12/03/2018 Transcribe Access Orders after 02/21/2018 Family History Medical History Relation Name Comments Diabetes Father Cancer Mother Hypertension Mother Relation Name Status Comments Father Mother Social History Date Tobacco Use Types Packs/Day Years Used Never Smoker Smokeless Tobacco: Never Used Drinks/Week oz/Week Comments Alcohol Use No Sex Assigned at Date Recorded Not on file Industry Job Start Date Occupation Not on file Not on file Not on file Travel End Travel History Travel Start No recent travel history available. Last Filed Vital Signs Not on file Plan of Treatment Health Maintenance Due Date Last Done Comments COLONOSCOPY SCREENING 1998 SHINGLES VACCINES (#1) 1998 65+ PNEUMOCOCCAL VACCINE 2013 06/24/2014 (2 of 2 - PPSV23) INFLUENZA VACCINE 01/16/2019 03/24/2015 Implants Device Identifier Shelf Expiration Date Model / Serial / Lot Implanted Type Area Manufactur er Clips Description:CLIPS IN SPINE Procedures Comments Procedure Name Priority Date/Time Associated Diagnosis MRI LUMBAR SPINE WO Routine 12/06/2018 Spinal stenosis, lumbar CONTRAST 10:34 AM CDT region, with neurogenic claudication after 02/21/2018 Results * MRI Lumbar Spine Wo Contrast (12/06/2018 10:34 AM CDT) Specimen Narrative Performed At [facility] EXAMINATION: MRI LUMBAR SPINE WO CONTRAST [...] possible left L4-L5 subarticular zone disc protrusion. [id number] Procedure Note Hm Interface, Radiology Results Incoming [...] possible left L4-L5 subarticular zone disc protrusion. [id number] Performing Organization Address City/State/Zipcode Phone Number [facility] [address] [place] [address] after 02/21/2018 Insurance Type Payer Benefit Subscriber ID Effective Phone Address Plan / Dates Group Medicare MEDICARE MEDICARE xxxxxxxxxxx 2013-P [place] Commercial [facility] xxxxxxxxxx 2017-P SUPPLEMENT resent Advance Directives For more information, please contact: [phone] Patient Back Joiner Explanation Type Date Recorded Advance Directives, 12/31/2017 5:27 PM Living Will and Medical Power of Drapery Counselor Date Inactivated Comments Code Status Date Activated 02/13/2018 8:43 PM Full Code 02/07/2018 7:34 PM Code Status decision reached by: Patient 02/07/2018 7:34 PM Full Code 02/07/2018 7:24 PM Code Status decision reached by: Patient 01/08/2018 9:35 PM Full Code 12/31/2017 6:56 PM Code Status decision reached by: Patient
--- OUTSIDE RECORDS SUMMARY | 2019-02-22 20:49 | XMS REPORT | Continuity of Care Document ---
Author Author [employer] Organization [employer] Address Unknown Phone Unavailable Care Team Providers Care Day [employer] Name Role Phone Mobile Location, IP Information Exchange Unavailable Unavailable Problems Problem Status Onset Date Classification Date Reported Comments Source M48.062 Active 01/14/2019 [facility] Sacrococcygeal disorders, not elsewhere classified 04/19/2018 10/20/2018 [facility] M48.061, M43.16 Active 03/31/2018 Mobile Location, IP M48.061, M43.16 BACK PAIN Active 03/31/2018 Mobile Location, IP M48.061, M43.16 LOW BACK PAIN Active 01/29/2018 Mobile Location, IP STENOSIS Active 10/31/2017 Mobile Location, IP M43.16, M48.061 Active 10/16/2017 Mobile Location, IP MRSA culture positive(Confirmed)2 Active 06/18/2007 Problem 10/20/2018 [facility] Tachycardia Active Diagnosis 06/25/2013 [facility] Asthma1 Active [...] Spine Arthrodesis status 10/20/2018 [facility] Sepsis Active Problem 02/01/2019 [facility] Urinary tract infection Active Problem 02/01/2019 [facility] SPONDYLOLISTHESIS, LUMBAR REGION Active [facility] SPINAL STENOSIS, LUMBAR REGION WITHOUT N Active [facility] SPINAL STENOSIS, LUMBAR REGION WITH NEUR Active [facility] Medications Medication Details Route Status Patient Instructions Ordering Provider Order Date Source Atorvastatin Calcium 20 Mg Tablet, 20 Mg Oral Bedtime Active 01/23/2019 [facility] Docusate Sodium 100 Mg Capsule, 100 Mg Oral Daily Active 01/23/2019 [facility] Morphine Sulfate (Morphine Sulfate Er) 30 Mg Tablet.er, 15 Mg Oral Every 12 Hours as needed for Pain Active 01/23/2019 [facility] Ramipril 5 Mg Capsule, 5 Mg Oral Daily Active 01/23/2019 [facility] Insulin Regular, Human (Humulin R) 100 Unit/1 Ml Vial Before Meals Active Lesley 07/27/2018 [facility] Nph, Human Insulin Isophane (Novolin N) 100 Unit/1 Ml Vial Twice A Day Active Lesley 07/27/2018 [facility] Tetracycline Hcl 500 Mg Capsule Twice A Day Active Lesley 07/27/2018 [facility] Insulin Regular, Human (Humulin R) 100 Unit/1 Ml Vial, 25 Unit Sub-Q Before Meals Active 07/27/2018 [facility] Nph, Human Insulin Isophane (Novolin N) 100 Unit/1 Ml Vial, 25 Unit Sub-Q Twice A Day Active 07/27/2018 [facility] Tetracycline Hcl 500 Mg Capsule, 500 Mg Oral Twice A Day Active Lesley 07/27/2018 [facility] Duloxetine Hcl (Cymbalta) 30 Mg Capsule.dr, 60 Mg Oral Daily Active 07/25/2018 [facility] Losartan Potassium 25 Mg Tablet, 25 Mg Peg Tube Daily Active 07/25/2018 [facility] tizanidine 4 MG Oral Capsule [Zanaflex] 4 mg=1 cap, PO, TID, # 40 cap, 0 Refill(s) Active 11/21/2017 [facility] Acetaminophen 325 MG / Hydrocodone Bitartrate 10 MG Oral Tablet [Warren 10/325] 1-2 tab, PO, Q4-6H, PRN Pain, [...] Longer Active 11/20/2017 [facility] sennosides, [facility] 8.6 mg, 1 tab, Route: PO, Drug [...] units) WASTE: F/P - Black; E - Q-Sensei Trash Bin Stable for 28 days at [...] mL, Route: IV, Initial Loading Dose: 0.4mg, BEEF BONER Dose: 0.3 mg, BEEF BONER Lockout: 15 minutes, Continuous Basal Rate: 0 mg, 4 Hour Limit (In MG): 7, Drug Form: INJ, Continuous, Start date: 11/19/17 11 :20:00 CDT, Duration: 30 day, Stop date: 12/19/17...Notes: (Same as: Dilaudid) conc=0.5 mg/ml Hydromorphone BEEF BONER Dose: ;Delay: ;Basal: No Longer Active 11/19/2017 [...] day, Stop date: 12/19/17 11:19:00 CDT, 2.31, [id number]: PREMIX IV - Do Not Alter WASTE: [...] not exceed 4gm/day of acetaminophen. (Same as: Warren 325/10) No Longer Active 11/19/2017 [facility] [...] 11:19:00 CDTNotes: (aluminum hydroxide-mag nesium hyd- simethicone [phone]/5ml 30 ml ud GEO) No Longer Active [...] Stop date: 11/19/17 10:42:00 CDT Inactive 11/19/2017 [facility] fentaNYL (ANES) Route: IV, Drug form: INJ, ONCE, Stop date: 11/19/17 10:42:00 CDT Inactive 11/19/2017 [facility] midazolam (ANES) Route: IV, Drug form: SOLN, ONCE, Stop date: 11/19/17 10:42:00 CDT Inactive 11/19/2017 [facility] acetaminophen (ANES) 10 mg [...] Orally every 6 hrs prn rib pain [facility] 09/23/2013 [facility] Ipratropium [place] as directed Inhalation Active 0.02 % Inhalation every 4 hours [facility] 06/26/2013 [facility] Norel CS 1 teaspoon Orally Active 10-4-12.5 MG/5ML Orally three times a day (tid) [facility] 06/26/2013 [facility] ProAir HFA 2 puffs as needed Inhalation Active 108 (90 Base) MCG/ACT Inhalation every 4 -6 hrs [facility] 06/23/2013 [facility] Zithromax Z-Landry 2 tablets on the first day, then 1 tablet daily for 4 days Orally Active 250 MG Orally Once a day [facility] 06/23/2013 [facility] Bystolic 1 tablet Orally Active 10 mg Orally Once a day [facility] 06/17/2013 [facility] Cymbalta 1 capsule Orally Active 60 MG Orally Once a day (patient needs to be seen before next refill) [facility] 05/09/2013 [facility] Cymbalta 1 capsule Orally No Longer Active 30 mg Orally Once a day [place] 02/13/2013 [facility] Tramadol HCl 1 tablet as needed Orally Active 50 mg Orally every 6 hrs [place] 02/13/2013 [facility] Cymbalta 1 capsule Orally Active 60 MG Orally Once a day [place] 02/13/2013 [facility] Amlodipine Besylate 1 tablet Orally Active 10 mg Orally Once a day [facility] 02/13/2013 [facility] Novolin N 23 units Subcutaneous Active 100 UNIT/ML Subcutaneous AM and PM [facility] Metformin HCl 2 tablet Orally Active 500 mg Orally Twice a day [facility] Simvastatin 1 tablet Orally No Longer Active 40 mg Orally Once a day [facility] Novolin R 23 units Injection Active 100 UNIT/ML Injection TID with meals [facility] Lisinopril 1 tablet Orally No Longer Active 10 mg Orally Once a day [facility] Metformin HCl TAKE TWO TABLETS BY MOUTH TWICE DAILY NA Active 500 [facility] Amlodipine Besylate TAKE ONE TABLET BY MOUTH EVERY DAY NA Active 10MG [facility] Aspirin 1 tablet Orally Active 325 MG Orally Once a day [facility] Amlodipine Besylate 10 Mg Tablet Daily Active [facility] Aspirin 81 Mg Tab.chew Daily Active [facility] Atorvastatin Calcium 20 Mg Tablet Bedtime Active [facility] Docusate Sodium 100 Mg Capsule Daily Active [facility] Finasteride 5 Mg Tablet Daily Active [facility] Flecainide Acetate 100 Mg Tablet Twice A Day Active [facility] Gabapentin 400 Mg Capsule Four Times Daily Active [facility] Hydrocodone Bit/Acetaminophen (Warren 10-325 Tablet) 1 Each Tablet Every 8 Hours as needed for Pain Active [facility] Metformin Hcl 500 Mg Tablet Twice A Day Active [facility] Morphine Sulfate (Morphine Sulfate Er) 30 Mg Tablet.er Every 12 Hours as needed for Pain Active [facility] Ramipril 5 Mg Capsule Daily Active [facility] Tamsulosin Hcl 0.4 Mg Cap.er.24h Daily Active [facility] Duloxetine Hcl (Cymbalta) 30 Mg Capsule.dr Daily Active [facility] Propranolol Hcl 40 Mg Tablet Twice A Day Active [facility] Sitagliptin Phosphate (Januvia) 100 Mg Tablet Daily Active [facility] Allergies, Adverse Reactions, Alerts Substance Category Reaction Severity Reaction type Status Date Reported Comments Source Carisoprodol Unknown Allergy to Substance Active 07/25/2018 [facility] Lincomycin Unknown Allergy to Substance Active 07/25/2018 [facility] Soma Assertion rash Drug allergy [...] Capillary blood glucose measurement by glucometer (mass/volume) 147 70 - 120 02/01/2019 [facility] Blood leukocytes automated count (number/volume) 10.60 4.8 - 10.8 01/30/2019 [facility] Blood erythrocytes automated count (number/volume) 4.41 4.3 - 5.7 01/30/2019 [facility] Blood hemoglobin measurement (moles/volume) 13.4 14.0 - 18.0 01/30/2019 [facility] Automated blood hematocrit (volume fraction) 39.7 38.2 - 49.6 01/30/2019 [facility] Automated erythrocyte mean corpuscular volume 90.0 81 - 99 01/30/2019 [facility] Automated erythrocyte mean corpuscular hemoglobin (mass per erythrocyte) 30.4 28 - 32 01/30/2019 [facility] Automated erythrocyte mean corpuscular hemoglobin concentration measurement (mass/volume) 33.8 31 - 35 01/30/2019 [facility] RDW BldCo-Rto 13.4 11.7 - 14.4 01/30/2019 [facility] Automated blood platelet count (count/volume) 287 140 - 360 01/30/2019 [facility] Automated blood segmented neutrophil count as percentage of total leukocytes 63.3 38.7 - 80.0 01/30/2019 [facility] Automated blood lymphocyte count as percentage ot total leukocytes 21.1 18.0 - 39.1 01/30/2019 [facility] Automated blood monocyte count as percentage of total leukocytes 10.4 4.4 - 11.3 01/30/2019 [facility] Automated blood eosinophil count as percentage of total leukocytes 3.2 0.0 - 6.0 01/30/2019 [facility] Automated blood basophil count as percentage of total leukocytes 1.0 0.0 - 1.0 01/30/2019 [facility] IM GRANULOCYTES % 1.0 0.0 - 1.0 01/30/2019 [facility] Automated blood neutrophil count 6.7 2.1 - 6.9 01/30/2019 [facility] Blood lymphocytes count (number/volume) 2.2 1.0 - 3.2 01/30/2019 [facility] Blood monocytes automated count (number/volume) 1.1 0.2 - 0.8 01/30/2019 [facility] Automated blood eosinophil count 0.3 0.0 - 0.4 01/30/2019 [facility] Automated blood basophil count (count/volume) 0.1 0.0 - 0.1 01/30/2019 [facility] Absolute Immature Granulocyte (auto 0.11 0 - 0.1 01/30/2019 [facility] Serum or plasma sodium measurement (moles/volume) 136 136 - 145 01/30/2019 [facility] Serum or plasma potassium measurement (moles/volume) 3.5 3.5 - 5.1 01/30/2019 [facility] Serum or plasma chloride measurement (moles/volume) 102 98 - 107 01/30/2019 [facility] Serum or plasma carbon dioxide, total measurement (moles/volume) 25 22 - 29 01/30/2019 [facility] Serum or plasma anion gap 12.5 8 - 16 01/30/2019 [facility] Serum or plasma urea nitrogen measurement (mass/volume) 12 7 - 26 01/30/2019 [facility] Serum or plasma creatinine measurement (mass/volume) 0.71 0.72 - 1.25 01/30/2019 [facility] Serum or plasma urea nitrogen/creatinine mass ratio 17 6 - 25 01/30/2019 [facility] Estimated glomerular filtration rate (GFR) determination > 60 60 01/30/2019 [facility] Glucose measurement 132 74 - 118 01/30/2019 [facility] Serum or plasma calcium measurement (mass/volume) 8.6 8.4 - 10.2 01/30/2019 [facility] Prothrombin time (PT) in platelet poor plasma by coagulation assay 13.1 11.9 - 14.5 01/29/2019 [facility] INR in Platelet poor plasma by Coagulation assay 0.94 01/29/2019 [facility] Activated partial thromboplastin time (aPTT) in platelet poor plasma bycoagulation assay 32.0 23.8 - 35.5 01/29/2019 [facility] Clostridium difficile A and B toxin assay NEGATIVE NEGATIVE 01/29/2019 [facility] Cerebrospinal fluid appearance description BLOODY CLEAR 01/27/2019 [facility] Cerebrospinal fluid color identification RED COLORLESS 01/27/2019 [facility] Tube # CSF 3 01/27/2019 [facility] Manual cerebrospinal fluid leukocytes count (number/volume) 99 0 - 5 01/27/2019 [facility] Cerebrospinal fluid erythrocytes count (number/volume) 46750 0 - 10 01/27/2019 [facility] Cerebrospinal fluid glucose measurement (mass/volume) 87 40 - 70 01/27/2019 [facility] Cerebrospinal fluid protein measurement (mass/volume) 76.5 15 - 40 01/27/2019 [facility] Differential Total Cells Counted 100 01/24/2019 [facility] Manual blood neutrophils/100 leukocytes 70 40 - 74 01/24/2019 [facility] Manual blood lymphocytes/100 leukocytes 17 19 - 48 01/24/2019 [facility] Manual blood monocytes/100 leukocytes 10 3.4 - 9.0 01/24/2019 [facility] Manual blood eosinophil count as percentage of total leukocytes 3 0 - 7 01/24/2019 [facility] Blood platelets count by estimate (number/volume) ADEQUATE 01/24/2019 [facility] Platelet morphology NORMAL 01/24/2019 [facility] RBC morphology NORMAL 01/24/2019 [facility] Serum or plasma total bilirubin measurement (mass/volume) 0.6 0.2 - 1.2 01/24/2019 [facility] Aspartate Amino Transf (AST/SGOT) 10 5 - 34 01/24/2019 [facility] Serum or plasma alanine aminotransferase measurement (enzymatic activity/volume) 10 0 - 55 01/24/2019 [facility] Serum or plasma protein measurement (mass/volume) 6.6 6.5 - 8.1 01/24/2019 [facility] Serum or plasma albumin measurement (mass/volume) 3.1 3.5 - 5.0 01/24/2019 [facility] Plasma globulin measurement (mass/volume) 3.5 2.3 - 3.5 01/24/2019 [facility] Serum or plasma albumin/globulin mass ratio 0.9 0.8 - 2.0 01/24/2019 [facility] Serum or plasma alkaline phosphatase measurement (enzymatic activity/volume) 88 40 - 150 01/24/2019 [facility] Blood culture NO GROWTH AFTER 5 DAYS, FINAL REPORT 01/23/2019 [facility] Urine color determination YELLOW YELLOW 01/22/2019 [facility] Urine clarity CLOUDY CLEAR 01/22/2019 [facility] Specific gravity of Urine by Test strip >=1.030 1.010 - 1.025 01/22/2019 [facility] Urine pH measurement by automated test strip 6 5 - 7 01/22/2019 [facility] Urine leukocyte esterase detection by automated test strip SMALL NEGATIVE 01/22/2019 [facility] Urine nitrite detection by automated test strip POSITIVE NEGATIVE 01/22/2019 [facility] Urine protein detection by automated test strip 2+ NEGATIVE 01/22/2019 [facility] Urine glucose detection by automated test strip NEGATIVE NEGATIVE 01/22/2019 [facility] Urine ketones detection by automated test strip NEGATIVE NEGATIVE 01/22/2019 [facility] Urine urobilinogen measurement by test strip (mass/volume) 0.2 0.2 - 1 01/22/2019 [facility] Urine total bilirubin detection NEGATIVE NEGATIVE 01/22/2019 [facility] Urine erythrocytes detection MODERATE NEGATIVE 01/22/2019 [facility] Automated urine sediment leukocyte count by microscopy (number/high power field) >50 0 - 5 01/22/2019 [facility] Erythrocytes detection in urine sediment by light microscopy 11-20 0 - 5 01/22/2019 [facility] Bacteria detection in urine sediment by light microscopy MANY NONE 01/22/2019 [facility] Epithelial cells detection in urine sediment by light microscopy FEW NONE 01/22/2019 [facility] Lactic Acid Level 14.9 4.5 - 19.8 01/22/2019 [facility] Serum or plasma creatine kinase measurement (enzymatic activity/volume) 36 30 - 200 01/22/2019 [facility] Serum or plasma creatine kinase MB measurement (mass/volume) 0.60 0 - 5.0 01/22/2019 [facility] Troponin I measurement by highly sensitive enzyme immunoassay 0.001 0 - 0.300 01/22/2019 [facility] Urine color determination YELLOW YELLOW 01/09/2019 [facility] Urine clarity SL CLOUDY CLEAR 01/09/2019 [facility] Specific gravity of Urine by Test strip >=1.030 1.010 - 1.025 01/09/2019 [facility] Urine pH measurement by automated test strip 6 5 - 7 01/09/2019 [facility] Urine leukocyte esterase detection by automated test strip SMALL NEGATIVE 01/09/2019 [facility] Urine nitrite detection by automated test strip NEGATIVE NEGATIVE 01/09/2019 [facility] Urine protein detection by automated test strip 2+ NEGATIVE 01/09/2019 [facility] Urine glucose detection by automated test strip NEGATIVE NEGATIVE 01/09/2019 [facility] Urine ketones detection by automated test strip NEGATIVE NEGATIVE 01/09/2019 [facility] Urine urobilinogen measurement by test strip (mass/volume) 0.2 0.2 - 1 01/09/2019 [facility] Urine total bilirubin detection NEGATIVE NEGATIVE 01/09/2019 [facility] Urine erythrocytes detection 3+ NEGATIVE 01/09/2019 [facility] Automated urine sediment leukocyte count by microscopy (number/high power field) 6-10 0 - 5 01/09/2019 [facility] Erythrocytes detection in urine sediment by light microscopy 21-50 0 - 5 01/09/2019 [facility] Bacteria detection in urine sediment by light microscopy RARE NONE 01/09/2019 [facility] Epithelial cells detection in urine sediment by light microscopy RARE NONE 01/09/2019 [facility] Calcium oxalate crystals detection in urine sediment by light microscopy FEW FEW 01/09/2019 [facility] Calcium oxalate crystals detection in urine sediment by light microscopy FEW FEW 01/09/2019 [facility] Capillary blood glucose measurement by glucometer (mass/volume) 213 70 - 120 07/27/2018 [facility] Capillary blood glucose measurement by glucometer (mass/volume) 213 70 - 120 07/27/2018 [facility] Serum or plasma cortisol measurement on morning peak specimen (mass/volume) 15.8 6.2 - 19.4 07/26/2018 [facility] Serum or plasma cortisol measurement on morning peak specimen (mass/volume) 15.8 6.2 - 19.4 07/26/2018 [facility] Blood leukocytes automated count (number/volume) 11.30 4.8 - 10.8 07/26/2018 [facility] Hemoglobin A1c Percent 6.8 4.0 - 7.0 07/26/2018 [facility] Serum or plasma magnesium measurement (mass/volume) 2.1 1.3 - 2.1 07/26/2018 [facility] Serum or plasma triglyceride measurement (mass/volume) 114 0 - 149 07/26/2018 [facility] Serum or plasma cholesterol measurement (mass/volume) 103 0 - 199 07/26/2018 [facility] Serum or plasma cholesterol in LDL measurement (mass/volume) 48 60 - 130 07/26/2018 [facility] Serum or plasma cholesterol in HDL measurement (mass/volume) 32 40 - 60 07/26/2018 [facility] Serum or plasma total cholesterol/cholesterol in HDL mass ratio 3.2 3.9 - 4.7 07/26/2018 [facility] Serum or plasma thyrotropin measurement by detection limit <=0.005 miu/l (units/volume) 0.794 0.350 - 4.940 07/26/2018 [facility] Automated blood segmented neutrophil count as percentage of total leukocytes 61.3 38.7 - 80.0 07/26/2018 [facility] Automated blood lymphocyte count as percentage ot total leukocytes 25.0 18.0 - 39.1 07/26/2018 [facility] Automated blood monocyte count as percentage of total leukocytes 9.2 4.4 - 11.3 07/26/2018 [facility] Automated blood eosinophil count as percentage of total leukocytes 2.5 0.0 - 6.0 07/26/2018 [facility] Automated blood basophil count as percentage of total leukocytes 1.0 0.0 - 1.0 07/26/2018 [facility] IM GRANULOCYTES % 1.0 0.0 - 1.0 07/26/2018 [facility] Automated blood neutrophil count 6.9 2.1 - 6.9 07/26/2018 [facility] Blood lymphocytes count (number/volume) 2.8 1.0 - 3.2 07/26/2018 [facility] Blood monocytes automated count (number/volume) 1.0 0.2 - 0.8 07/26/2018 [facility] Automated blood eosinophil count 0.3 0.0 - 0.4 07/26/2018 [facility] Automated blood basophil count (count/volume) 0.1 0.0 - 0.1 07/26/2018 [facility] Absolute Immature Granulocyte (auto 0.11 0 - 0.1 07/26/2018 [facility] Aspartate Amino Transf (AST/SGOT) 21 5 - 34 07/26/2018 [facility] Serum or plasma alanine aminotransferase measurement (enzymatic activity/volume) 30 0 - 55 07/26/2018 [facility] Serum or plasma protein measurement (mass/volume) 7.2 6.5 - 8.1 07/26/2018 [facility] Serum or plasma albumin measurement (mass/volume) 3.1 3.5 - 5.0 07/26/2018 [facility] Plasma globulin measurement (mass/volume) 4.1 2.3 - 3.5 07/26/2018 [facility] Serum or plasma albumin/globulin mass ratio 0.8 0.8 - 2.0 07/26/2018 [facility] Serum or plasma alkaline phosphatase measurement (enzymatic activity/volume) 111 40 - 150 07/26/2018 [facility] Serum or plasma triglyceride measurement (mass/volume) 114 0 - 149 07/26/2018 [facility] Serum or plasma cholesterol measurement (mass/volume) 103 0 - 199 07/26/2018 [facility] Serum or plasma cholesterol in LDL measurement (mass/volume) 48 60 - 130 07/26/2018 [facility] Serum or plasma cholesterol in HDL measurement (mass/volume) 32 40 - 60 07/26/2018 [facility] Hemoglobin A1c Percent 6.8 4.0 - 7.0 07/26/2018 [facility] Serum or plasma magnesium measurement (mass/volume) 2.1 1.3 - 2.1 07/26/2018 [facility] Serum or plasma thyrotropin measurement by detection limit <=0.005 miu/l (units/volume) 0.794 0.350 - 4.940 07/26/2018 [facility] Aspartate Amino Transf (AST/SGOT) 21 5 - 34 07/26/2018 [facility] Serum or plasma alanine aminotransferase measurement (enzymatic activity/volume) 30 0 - 55 07/26/2018 [facility] Serum or plasma protein measurement (mass/volume) 7.2 6.5 - 8.1 07/26/2018 [facility] Serum or plasma albumin measurement (mass/volume) 3.1 3.5 - 5.0 07/26/2018 [facility] Plasma globulin measurement (mass/volume) 4.1 2.3 - 3.5 07/26/2018 [facility] Serum or plasma albumin/globulin mass ratio 0.8 0.8 - 2.0 07/26/2018 [facility] Serum or plasma alkaline phosphatase measurement (enzymatic activity/volume) 111 40 - 150 07/26/2018 [facility] Serum or plasma triglyceride measurement (mass/volume) 114 0 - 149 07/26/2018 [facility] Serum or plasma cholesterol measurement (mass/volume) 103 0 - 199 07/26/2018 [facility] Serum or plasma cholesterol in LDL measurement (mass/volume) 48 60 - 130 07/26/2018 [facility] Serum or plasma cholesterol in HDL measurement (mass/volume) 32 40 - 60 07/26/2018 [facility] Serum or plasma total cholesterol/cholesterol in HDL mass ratio 3.2 3.9 - 4.7 07/26/2018 [facility] Serum or plasma thyrotropin measurement by detection limit <=0.005 miu/l (units/volume) 0.794 0.350 - 4.940 07/26/2018 [facility] Serum or plasma sodium measurement (moles/volume) 137 136 - 145 07/26/2018 [facility] Serum or plasma potassium measurement (moles/volume) 4.1 3.5 - 5.1 07/26/2018 [facility] Serum or plasma chloride measurement (moles/volume) 103 98 - 107 07/26/2018 [facility] Serum or plasma carbon dioxide, total measurement (moles/volume) 25 22 - 29 07/26/2018 [facility] Serum or plasma anion gap 13.1 8 - 16 07/26/2018 [facility] Serum or plasma urea nitrogen measurement (mass/volume) 14 7 - 26 07/26/2018 [facility] Serum or plasma creatinine measurement (mass/volume) 0.80 0.72 - 1.25 07/26/2018 [facility] Serum or plasma urea nitrogen/creatinine mass ratio 18 6 - 25 07/26/2018 [facility] Estimated glomerular filtration rate (GFR) determination > 60 60 07/26/2018 [facility] Glucose measurement 186 74 - 118 07/26/2018 [facility] Serum or plasma calcium measurement (mass/volume) 9.4 8.4 - 10.2 07/26/2018 [facility] Hemoglobin A1c Percent 6.8 4.0 - 7.0 07/26/2018 [facility] Serum or plasma magnesium measurement (mass/volume) 2.1 1.3 - 2.1 07/26/2018 [facility] Serum or plasma total bilirubin measurement (mass/volume) 0.2 0.2 - 1.2 07/26/2018 [facility] Serum or plasma total cholesterol/cholesterol in HDL mass ratio 3.2 3.9 - 4.7 07/26/2018 [facility] Serum or plasma creatine kinase measurement (enzymatic activity/volume) 82 30 - 200 07/25/2018 [facility] Serum or plasma creatine kinase MB measurement (mass/volume) 1.10 0 - 5.0 07/25/2018 [facility] Troponin I measurement by highly sensitive enzyme immunoassay 0.007 0 - 0.300 07/25/2018 [facility] Blood culture NO GROWTH AFTER 5 DAYS, FINAL REPORT 07/25/2018 [facility] Serum or plasma creatine kinase measurement (enzymatic activity/volume) 82 30 - 200 07/25/2018 [facility] Serum or plasma creatine kinase MB measurement (mass/volume) 1.10 0 - 5.0 07/25/2018 [facility] Troponin I measurement by highly sensitive enzyme immunoassay 0.007 0 - 0.300 07/25/2018 [facility] Transitional cells detection in urine sediment by light microscopy MODERATE NONE 07/25/2018 [facility] Urine clarity CLOUDY CLEAR 07/25/2018 [facility] Specific gravity of Urine by Test strip 1.025 1.010 - 1.025 07/25/2018 [facility] Urine pH measurement by automated test strip 6 5 - 7 07/25/2018 [facility] Urine leukocyte esterase detection by dipstick 1+ NEGATIVE 07/25/2018 [facility] Urine nitrite detection POSITIVE NEGATIVE 07/25/2018 [facility] Urine protein measurement by test strip (mass/volume) TRACE NEGATIVE 07/25/2018 [facility] Urine glucose detection NEGATIVE NEGATIVE 07/25/2018 [facility] Urine ketones detection by automated test strip NEGATIVE NEGATIVE 07/25/2018 [facility] Urine urobilinogen measurement by test strip (mass/volume) 0.2 0.2 - 1 07/25/2018 [facility] Urine total bilirubin measurement (mass/volume) NEGATIVE NEGATIVE 07/25/2018 [facility] Urine erythrocytes detection 1+ NEGATIVE 07/25/2018 [facility] Automated urine sediment leukocyte count by microscopy (number/high power field) >50 0 - 5 07/25/2018 [facility] Erythrocytes detection in urine sediment by light microscopy 6-10 0 - 5 07/25/2018 [facility] Bacteria detection in urine sediment by light microscopy MANY NONE 07/25/2018 [facility] Epithelial cells detection in urine sediment by light microscopy FEW NONE 07/25/2018 [facility] Transitional cells detection in urine sediment by light microscopy MODERATE NONE 07/25/2018 [facility] Transitional cells detection in urine sediment by light microscopy MODERATE NONE 07/25/2018 [facility] Lactic Acid Level 18.1 4.5 - 19.8 07/25/2018 [facility] Lactic Acid Level 18.1 4.5 - 19.8 07/25/2018 [facility] ELECTROLYTES POC AGAP 16.0 10.0 [...] and Spine Bacterial urine culture Urine Culture [facility] Pathology Reports No Data Provided [...] L2- L3 posterior spinal fusion with spine [place] pedicle screws segmental instrumentation, allograft local bone [...] atrophy in the lower lumbar spine. 04/02/2018 [facility] Spine lumbar myelogram DX EXAM: SPINE LUMBAR MYELOGRAM DX Date: 04/02/2018 1334 hours PREPROCEDURE DIAGNOSIS: Lower back pain POST PROCEDURE DIAGNOSIS: Same OXIDATION OPERATOR: Dahlia Koehler M.D. SIGHTSEEING GUIDE: Agustin Lombardi M.D ANESTHESIA: Local anesthesia was [...] for injection of intrathecal contrast material. 04/02/2018 [facility] lumbar 2 or 3 views DX EXAM: [...] L2-3 appear unchanged with adequate alignment. 11/21/2017 [facility] Spine lumbar single view DX EXAM: XR [...] alignment of L2-L3 posterior fixation hardware. 11/19/2017 [facility] Spine lumbar myelogram CT EXAM: MYELOGRAM LUMBAR [...] compressive effect on the nerve roots. 10/24/2017 [facility] Spine lumbar myelogram DX EXAM: MYELOGRAM LUMBAR [...] compressive effect on the nerve roots. 10/24/2017 [facility] Consultation Notes No Data Provided for This [...] and Spine Systolic (mm Hg) 117 04/02/2018 [facility] Diastolic (mm Hg) 62 04/02/2018 [facility] Respitory Rate 18 04/02/2018 [facility] Systolic (mm Hg) 108 04/02/2018 [facility] Diastolic (mm Hg) 61 04/02/2018 [facility] Heart Rate 65 04/02/2018 [facility] BMI Calculated 28.47 04/02/2018 [facility] Weight 90 04/02/2018 [facility] Height 177.8 cm 04/02/2018 [facility] Systolic (mm Hg) 139 [...] Respitory Rate 18 11/22/2017 [facility] Heart Rate 62 11/22/2017 [...] [facility] Heart Rate 81 10/24/2017 [facility] Respitory Rate 18 10/24/2017 [facility] Heart Rate 74 03/04/2013 [facility] Diastolic [...] Provider ADM Date DC Date Status Source [facility] [employer]- [employer] [id number] 01/17/2013 01/17/2013 [facility] [employer] [id number] 01/17/2013 01/17/2013 [facility] [employer] [id number] 01/17/2013 01/17/2013 [facility] [employer] [id number] 01/17/2013 01/17/2013 [facility] [employer] [id number] 01/17/2013 01/17/2013 [facility] [employer] [id number] 01/17/2013 01/17/2013 [facility] [employer] [id number] 01/17/2013 01/17/2013 [facility] [employer] [id number] 01/17/2013 01/17/2013 [facility] [employer] [id number] 01/17/2013 01/17/2013 [facility] [employer] [id number] 01/17/2013 01/17/2013 [facility] [employer] [id number] 01/17/2013 01/17/2013 [facility] Unknown [id number] 02/10/2013 02/10/2013 [facility] Unknown [id number] 02/10/2013 02/10/2013 [facility] Unknown [id number] 02/10/2013 02/10/2013 [facility] Unknown [id number] 02/10/2013 02/10/2013 [facility] Unknown [id number] 02/10/2013 02/10/2013 [facility] Unknown [id number] 02/10/2013 02/10/2013 [facility] Unknown [id number] 02/10/2013 02/10/2013 [facility] Unknown [id number] 02/10/2013 02/10/2013 [facility] Unknown [id number] 02/10/2013 02/10/2013 [facility] Unknown [id number] 02/10/2013 02/10/2013 [facility] Unknown [id number] 02/10/2013 02/10/2013 [facility] Unknown [id number] 02/10/2013 02/10/2013 [facility] cough [id number] 02/13/2013 02/13/2013 [facility] cough [id number] 02/13/2013 02/13/2013 [facility] cough [id number] 02/13/2013 02/13/2013 [facility] cough [id number] 02/13/2013 02/13/2013 [facility] cough [id number] 02/13/2013 02/13/2013 [facility] cough [id number] 02/13/2013 02/13/2013 [facility] cough [id number] 02/13/2013 02/13/2013 [facility] cough [id number] 02/13/2013 02/13/2013 [facility] cough [id number] 02/13/2013 02/13/2013 [facility] cough [id number] 02/13/2013 02/13/2013 [facility] cough [id number] 02/13/2013 02/13/2013 [facility] Unknown [id number] 05/09/2013 05/09/2013 [facility] Unknown [id number] 05/09/2013 05/09/2013 [facility] Unknown [id number] 05/09/2013 05/09/2013 [facility] Unknown [id number] 05/09/2013 05/09/2013 [facility] Unknown [id number] 05/09/2013 05/09/2013 [facility] Unknown [id number] 05/09/2013 05/09/2013 [facility] Unknown [id number] 05/09/2013 05/09/2013 [facility] Unknown [id number] 05/09/2013 05/09/2013 [facility] Unknown [id number] 05/09/2013 05/09/2013 [facility] racing [id number] 06/17/2013 06/17/2013 [facility] [employer] [id number] 06/17/2013 06/17/2013 [facility] [id number] 06/17/2013 06/17/2013 [facility] [employer] [id number] 06/17/2013 06/17/2013 [facility] [id number] 06/17/2013 06/17/2013 [facility] [id number] 06/17/2013 06/17/2013 [facility] [id number] 06/17/2013 06/17/2013 [facility] Unknown [id number] 06/18/2013 06/18/2013 [facility] Unknown [id number] 06/18/2013 06/18/2013 [facility] Unknown [id number] 06/18/2013 06/18/2013 [facility] Unknown [id number] 06/18/2013 06/18/2013 [facility] Unknown [id number] 06/18/2013 06/18/2013 [facility] Unknown [id number] 06/18/2013 06/18/2013 [facility] Unknown [id number] 06/18/2013 06/18/2013 [facility] Unknown [id number] 06/18/2013 06/18/2013 [facility] sick [id number] 06/23/2013 06/23/2013 [facility] sick [id number] 06/23/2013 06/23/2013 [facility] sick [id number] 06/23/2013 06/23/2013 [facility] sick [id number] 06/23/2013 06/23/2013 [facility] sick [id number] 06/23/2013 06/23/2013 [facility] sick [id number] 06/23/2013 06/23/2013 [facility] sick [id number] 06/23/2013 06/23/2013 [facility] sick [id number] 06/26/2013 06/26/2013 [facility] sick [id number] 06/26/2013 06/26/2013 [facility] sick [id number] 06/26/2013 06/26/2013 [facility] sick [id number] 06/26/2013 06/26/2013 [facility] sick [id number] 06/26/2013 06/26/2013 [facility] fell on ribs [id number] 09/23/2013 09/23/2013 [facility] fell on ribs [id number] 09/23/2013 09/23/2013 [facility] fell on ribs [id number] 09/23/2013 09/23/2013 [facility] fell on ribs [id number] 09/23/2013 09/23/2013 [facility] Unknown [id number] 11/12/2013 11/12/2013 [facility] Unknown [id number] 11/12/2013 11/12/2013 [facility] Unknown [id number] 11/12/2013 11/12/2013 [facility] REFILL [id number] 11/25/2013 11/25/2013 [facility] REFILL [id number] 11/25/2013 11/25/2013 [facility] REFILL [id number] 11/25/2013 11/25/2013 [facility] Unknown [id number] 01/12/2014 01/12/2014 [facility] Outpatient [id number] [facility] 10/24/2017 10/25/2017 [facility] Inpatient [id number] [facility] 11/19/2017 11/22/2017 [facility] [id number] [facility] 02/07/2018 02/07/2018 [facility] Outpatient [id number] [facility] 04/02/2018 04/03/2018 [facility] Discharged Inpatient [id number] JOHANNA CHRISTINE MD 07/25/2018 07/27/2018 [facility] Departed Emergency Room [id number] [id number] CHOI MD 01/09/2019 01/09/2019 [facility] Discharged Inpatient [id number] INEZ OLVERA MD 01/22/2019 02/01/2019 [facility] Procedures Procedure Code Date Perfomer Comments Source SPRINKLING SYSTEM IRRIGATOR shunt [id number] 01/30/2019 [facility] Magnetic resonance imaging of brain without contrast [id number] 01/27/2019 [facility] Computed tomography of abdomen and pelvis with contrast [id number] 01/22/2019 [facility] Computed tomography of brain without radiopaque contrast [id number] 07/25/2018 [facility] Computed tomography of cervical spine without contrast [id number] 07/25/2018 [facility] Myelography via lumbar injection, including radiological supervision and interpretation; lumbosacral [id number] 04/02/2018 [facility] Spinal fusion [id number] 11/19/2017 [facility] Exploratory lumbar laminectomy [id number] 06/18/1984 [facility] Cataract extraction and insertion of intraocular lens [id number] [facility] Lumbar spinal fusion [id number] [facility] Rotator cuff repair [id number] [facility] Assessment and Plan Assessment [...] no need for transfusion 13.Urinary retention resolved. vida tamsulosin ambulation home Extracted from:Title: pre-op H&P [...] fusion. 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 [facility] Hospitalist Consult Please [id number] any questions 11/22/2017 [facility] Plan of Care Plan of Care Date Source Discharge Date 02/01/19 2:54pm Disposition TRANSFER SENIOR CARE Prescriptions See Medication Section 02/01/2019 [facility] Discharge Date 01/09/19 10:32pm Disposition HOME, SELF-CARE Condition at Discharge Stable Instructions/Education Provided Rehman Catheter Care Urinary Tract Infection - Men Forms Provided Work/School Excuse Prescriptions See Medication Section Referrals ADOLFO GERMAIN MD Order Date: Call for an appointment Address: [facility] [address] Additional Instructions/Education - You have a UTI and penile pain secondary to rehman catheter - Take medications as prescribed - Follow up with Urologist 01/09/2019 [facility] Discharge Date 07/27/18 5:36pm Disposition HOME, SELF-CARE Instructions/Education Provided Pyelonephritis Prescriptions See Medication Section Referrals ALEENA FRANCIS MD (Endocrinology) Entered Date: 07/27/2018 4:48pm Address: [address] [place] [address] , [address] [place] [address] Additional Instructions/Education RESUME DIET AND ACTIVITIES DIRECTED. FOLLOW UP WITH YOUR PRIMARY CARE PROVIDER DIRECTED; FOLLOW UP WITH DR. FRANCIS IN 1-2 WEEKS. 07/27/2018 [facility] Social History Social History Date Source No social history information available. 02/01/2019 [facility] Social History TypeResponse Exercise 1 Alcohol Past Smoking Status Never smoker; Exposure to Tobacco Smoke None; Cigarette Smoking Last 365 Days No; Reg Smoking Cessation Counseling No entered on: 11/19/17 1Denies sob on exertion 11/06/2017 [facility] Social History ElementQualifiersDate Reported Ethnicity . Status , Is tamazight your primary language? 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 No 07/25/18 6:47am If not on file with [facility] will patient provide a copy? No 07/25/18 6:47am Do you have a Directive to Physician? No 01/22/19 11:42pm Do you have a Medical Power of Scrap Dealer? No 01/22/19 11:42pm Do you have an out of hospital Do Not Resuscitate Order? No 01/22/19 11:42pm Do you have any special needs we should be aware of? No 01/22/19 11:42pm Do you have a support person here with you today? Yes 01/22/19 11:42pm Did patient receive Notice of Privacy Practices? Yes 01/22/19 11:42pm Did patient receive patient rights and responsibilities? Yes 01/22/19 11:42pm 02/01/2019 [facility] Advance Directives Advance Directives Directive Response Recorded Date/Time Does the patient have an advance directive? No 07/25/18 6:47am If yes, is advance directive on file with [facility]? No 07/25/18 6:47am If not on file with [facility] will patient provide a copy? No 07/25/18 6:47am 01/09/2019 [facility] Advance Directives Advance Directives Directive Response Recorded Date/Time Does the patient have an advance directive? No 07/25/18 6:47am If yes, is advance directive on file with [facility]? No 07/25/18 6:47am If not on file with [facility] will patient provide a copy? No 07/25/18 6:47am Do you have a Directive to Physician? No 07/25/18 4:47am Do you have a Medical Power of Scrap Dealer? No 07/25/18 4:47am Do you have an [...] rights and responsibilities? Yes 07/25/18 4:47am 07/27/2018 [facility] Functional Status No Data Provided for This Section
[2019-02-22] MEDS ORDERED: SODIUM CHLORIDE 0.9% 1000ML 1,000 ML IV STA (20:52)
--- NOTE | 2019-02-22 20:56 | NUR ---
rehman bag removed and replaced with new bag
[2019-02-22] MEDS ORDERED: ONDANSETRON HCL INJ 2MG/ML 2ML 2 MG/ML VIAL IV PRN (21:00)
[2019-02-22 21:07] LABS: BASOPHILS # (AUTO) 0.1 (0.0-0.1); BASOPHILS % 0.4 % (0.0-1.0); EOSINOPHILS % 0.3 % (0.0-6.0); HEMATOCRIT 43.2 % (38.2-49.6); HEMOGLOBIN 15.2 g/dL (14.0-18.0); LYMPHOCYTES # (AUTO) 2.2 (1.0-3.2); LYMPHOCYTES % 15.5 % (18.0-39.1); MEAN CORPUSCULAR HEMOGLOBIN 30.7 pg (28-32); MEAN CORPUSCULAR HGB CONC 35.2 g/dL (31-35); MEAN CORPUSCULAR VOLUME 87.3 fL (81-99); MONOCYTES % 6.9 % (4.4-11.3); NEUTROPHILS # (AUTO) 10.6 (2.1-6.9); NEUTROPHILS % 76.3 % (38.7-80.0); PLATELET COUNT 303 x10e3/uL (140-360); RED BLOOD COUNT 4.95 x10e6/uL (4.3-5.7); RED CELL DISTRIBUTION WIDTH 12.3 % (11.7-14.4)
[2019-02-22 21:30] LABS: ALANINE AMINOTRANSFERASE 12 IU/L (0-55); ALBUMIN 3.8 g/dL (3.5-5.0); ALBUMIN/GLOBULIN RATIO 0.9 (0.8-2.0); ALKALINE PHOSPHATASE 100 IU/L (40-150); ANION GAP 18.9 mmol/L (8-16); BLOOD UREA NITROGEN 13 mg/dL (7-26); BUN/CREATININE RATIO 15 (6-25); CALCIUM 9.8 mg/dL (8.4-10.2); CARBON DIOXIDE 22 mmol/L (22-29); CHLORIDE 100 mmol/L (98-107); CREATINE KINASE 37 IU/L (30-200); CREATININE, SERUM 0.86 mg/dL (0.72-1.25); EST GLOMERULAR FILTRATION RATE > 60 ML/MIN (60-); GLUCOSE 167 mg/dL (74-118); LIPASE 14 U/L (8-78); MAGNESIUM 1.3 MG/DL (1.3-2.1); POTASSIUM 3.9 mmol/L (3.5-5.1); SODIUM 137 mmol/L (136-145)
[2019-02-22 22:00] LABS: BILIRUBIN,URINE SMALL (NEGATIVE); CLARITY,URINE SL CLOUDY (CLEAR); COLOR,URINE YELLOW (YELLOW); KETONES,URINE 1+ (NEGATIVE); LEUKOCYTE ESTERASE ,URINE TRACE (NEGATIVE); NITRITE,URINE NEGATIVE (NEGATIVE); URINE UROBILINOGEN 0.2 mg/dL (0.2 - 1)
[2019-02-22 22:05] LABS: PROTEIN,URINE DIPSTICK 3+ (NEGATIVE)
[2019-02-22 22:11] LABS: BACTERIA,URINE FEW /HPF; EPITHELIAL CELLS,URINE FEW /LPF; RBC,URINE 21-50 /HPF (0-5); WBC,URINE (MAN) 21-50 /HPF (0-5)
--- NOTE | 2019-02-22 23:00 | Diagnostic Imaging Report ---
History:Headache, vomiting for one day. Shunt placed 3 weeks ago Comparison studies:CT head 01/22/2019 Technique: Axial images were obtained from the skull base to the vertex. Coronal and sagittal images reconstructed from the axial data. Intravenous contrast: None Dose modulation, iterative reconstruction, and/or weight based adjustment of the mA/kV was utilized to reduce the radiation dose to as low as reasonably achievable. Findings: Scalp/skull: Right parietal ventricular shunt at the right lateral ventricle body posterior aspect, subcutaneous reservoir in the right parietal scalp.. Extra-axial spaces: No masses. No fluid collections. Brain sulci: Mildly prominent. Ventricles: Moderate dilation of the lateral and third ventricles, stable. Negative density focus at the right lateral ventricle frontal horn, likely related to air. Parenchyma: Scattered and confluent hypodensities in the supratentorial white matter are small vessel ischemic changes. No masses, hemorrhage, acute or chronic cortical vascular insults. Sellar/suprasellar region: No abnormalities. Craniocervical junction: Patent foramen magnum. No Chiari one malformation. Incidental findings: Atherosclerotic calcifications in the carotid siphons and left vertebral artery . Impression: No acute abnormalities. Right parietal ventricular shunt and air focus at the right frontal horn, new since previous examination. Small pneumocephalus in the right frontal horn. Chronic findings: 1. Moderate ventriculomegaly, stable from previous examination. 2. Moderate supratentorial white matter small vessel ischemic changes, stable. Signed by: DR Phong Madrigal M.D. on 02/22/2019 10:57 PM
--- NOTE | 2019-02-22 23:16 | Diagnostic Imaging Report ---
Shunt series CPT: 16621, 59076, 55120 History: DEPUTY GENERAL COUNSEL shunt Findings: There is a shunt extending down the right neck to the midline upper chest. Images of the chest are underpenetrated and the shunt tubing is not visible. Shunt tubing is looped in the right upper quadrant. The lung kennedy are clear. The bowel gas pattern is normal. The paranasal sinuses are well aerated. Fusion hardware of the lumbar spine is intact without surrounding lucency to suggest failure. IMPRESSION: Poor visualization of shunt tubing in the chest. Signed by: Dr. Lisa Pickens MD on 02/22/2019 11:13 PM
--- NOTE | 2019-02-22 23:17 | Diagnostic Imaging Report ---
EXAMINATION: CHEST SINGLE (PORTABLE) COMPARISON: Shunt series obtained at the same time, chest x-ray 01/23/2019 INDICATION: Headache, vomiting ^ERMD ORDER ^Y DISCUSSION: Frontal view of the chest obtained at 07/20/2001 hours. The image is underpenetrated. HEART AND MEDIASTINUM: The cardiomediastinal silhouette is unremarkable. LINES: Shunt tubing is identified in the upper chest at the level of the clavicular heads. It cannot be seen distally due to underpenetration of the image LUNGS: The lungs are well inflated and clear. No pneumonia or pulmonary edema. PLEURA: Mild eventration of the right diaphragm. No pleural effusion or pneumothorax. BONES AND SOFT TISSUES: No focal osseous lesion. The soft tissues are normal. IMPRESSION: No acute cardiopulmonary disease. Poor visualization of shunt tubing within the chest. Signed by: Dr. Lisa Pickens MD on 02/22/2019 11:14 PM
[2019-02-22] MEDS: CEFTRIAXONE SOD 1 GM/NS 50 ML 50 ML IV SCH (23:30)
--- NOTE | 2019-02-22 23:30 | NUR ---
IV in lacf infiltrated. dc'd. dressing to site, inserted 20g in r hand x 1 stick. tolerated well
[2019-02-22] MEDS ORDERED: SODIUM CHLORIDE 0.9% 1000ML 1,000 ML IV SCH (23:49)
--- OUTSIDE RECORDS SUMMARY | 2019-02-22 23:56 | XMS REPORT | Clinical Summary ---
Author Author [facility] Address Unknown Phone Unavailable Care Team Providers Care Business Asst Name Role Phone Jeremy Olivo MD PCP [...] possible left L4-L5 subarticular zone disc protrusion. [id number] Procedure Note Hm Interface, Radiology Results Incoming [...] possible left L4-L5 subarticular zone disc protrusion. 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
--- OUTSIDE RECORDS SUMMARY | 2019-02-22 23:57 | XMS REPORT | Continuity of Care Document ---
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 Role Phone [email or web address] Information [employer] Unavailable Unavailable Problems Problem Status Onset Date Classification Date Reported Comments Source M48.062 Active 01/14/2019 [facility] Sacrococcygeal disorders, not elsewhere classified 04/19/2018 10/20/2018 [facility] M48.061, M43.16 Active 03/31/2018 [facility] M48.061, M43.16 BACK PAIN Active 03/31/2018 [facility] M48.061, M43.16 LOW BACK PAIN Active 01/29/2018 [facility] STENOSIS Active 10/31/2017 [facility] M43.16, M48.061 Active 10/16/2017 [facility] MRSA culture positive(Confirmed)2 Active 06/18/2007 Problem 10/20/2018 [facility] Tachycardia Active Diagnosis 06/25/2013 [facility] Asthma1 Active Problem [...] [facility] Sepsis Active Problem 02/01/2019 [facility] Urinary tract infection Active Problem 02/01/2019 [facility] SPONDYLOLISTHESIS, LUMBAR REGION Active [facility] SPINAL STENOSIS, LUMBAR REGION WITHOUT N Active [facility] SPINAL STENOSIS, LUMBAR REGION WITH NEUR Active [facility] Medications Medication Details Route Status Patient Instructions Ordering Provider Order Date Source Atorvastatin Calcium 20 Mg Tablet, 20 Mg Oral Bedtime Active 01/23/2019 [facility] Docusate Sodium 100 Mg Capsule, 100 Mg Oral Daily Active 01/23/2019 [facility] Morphine Sulfate (Morphine Sulfate Er) 30 Mg Tablet.er, 15 Mg Oral Every 12 Hours as needed for Pain Active 01/23/2019 [facility] Ramipril 5 Mg Capsule, 5 Mg Oral Daily Active 01/23/2019 [facility] Insulin Regular, Human (Humulin R) 100 Unit/1 Ml Vial Before Meals Active [facility] 07/27/2018 [facility] Nph, Human Insulin Isophane (Novolin N) 100 Unit/1 Ml Vial Twice A Day Active [facility] 07/27/2018 [facility] Tetracycline Hcl 500 Mg Capsule Twice A Day Active [facility] 07/27/2018 [facility] Insulin Regular, Human (Humulin R) 100 Unit/1 Ml Vial, 25 Unit Sub-Q Before Meals Active 07/27/2018 [facility] Nph, Human Insulin Isophane (Novolin N) 100 Unit/1 Ml Vial, 25 Unit Sub-Q Twice A Day Active 07/27/2018 [facility] Tetracycline Hcl 500 Mg Capsule, 500 Mg Oral Twice A Day Active [facility] 07/27/2018 [facility] Duloxetine Hcl (Cymbalta) 30 Mg Capsule.dr, 60 Mg Oral Daily Active 07/25/2018 [facility] Losartan Potassium 25 Mg Tablet, 25 Mg Peg Tube Daily Active 07/25/2018 [facility] tizanidine 4 MG Oral Capsule [Zanaflex] 4 mg=1 cap, PO, TID, # 40 cap, 0 Refill(s) Active 11/21/2017 [facility] Acetaminophen 325 MG / Hydrocodone Bitartrate 10 MG Oral Tablet [[place] 10/325] 1-2 tab, PO, Q4-6H, PRN Pain, [...] units) WASTE: F/P - Black; E - [employer] Trash Bin Stable for 28 days at [...] mL, Route: IV, Initial Loading Dose: 0.4mg, FOUNDRY TENDER Dose: 0.3 mg, FOUNDRY TENDER Lockout: 15 minutes, Continuous Basal Rate: 0 mg, 4 Hour Limit (In MG): 7, Drug Form: INJ, Continuous, Start date: 11/19/17 11 :20:00 CDT, Duration: 30 day, Stop date: 12/19/17...Notes: (Same as: Dilaudid) conc=0.5 mg/ml Hydromorphone FOUNDRY TENDER Dose: ;Delay: ;Basal: No Longer Active 11/19/2017 [...] day, Stop date: 12/19/17 11:19:00 CDT, 2.31, h3Ubdrm: PREMIX IV - Do Not Alter WASTE: [...] not exceed 4gm/day of acetaminophen. (Same as: [place] 325/10) No Longer Active 11/19/2017 [facility] [...] 11:19:00 CDTNotes: (aluminum hydroxide-mag nesium hyd- simethicone [phone]/5ml 30 ml ud GEO) No Longer Active [...] Orally every 6 hrs prn rib pain [facility] 09/23/2013 [facility] Ipratropium [place] as directed Inhalation Active 0.02 % Inhalation every 4 hours [facility] 06/26/2013 [facility] Norel CS 1 teaspoon Orally Active 10-4-12.5 MG/5ML Orally three times a day (tid) [facility] 06/26/2013 [facility] ProAir HFA 2 puffs as needed Inhalation Active 108 (90 Base) MCG/ACT Inhalation every 4 -6 hrs [facility] 06/23/2013 [facility] Zithromax Z-Landry 2 tablets on the first day, then 1 tablet daily for 4 days Orally Active 250 MG Orally Once a day [facility] 06/23/2013 [facility] Bystolic 1 tablet Orally Active 10 mg Orally Once a day [facility] 06/17/2013 [facility] Cymbalta 1 capsule Orally Active 60 MG Orally Once a day (patient needs to be seen before next refill) [facility] 05/09/2013 [facility] Cymbalta 1 capsule Orally No Longer Active 30 mg Orally Once a day [place] 02/13/2013 [facility] Tramadol HCl 1 tablet as needed Orally Active 50 mg Orally every 6 hrs [place] 02/13/2013 [facility] Cymbalta 1 capsule Orally Active 60 MG Orally Once a day [place] 02/13/2013 [facility] Amlodipine Besylate 1 tablet Orally Active 10 mg Orally Once a day [facility] 02/13/2013 [facility] Novolin N 23 units Subcutaneous Active 100 UNIT/ML Subcutaneous AM and PM [facility] Metformin HCl 2 tablet Orally Active 500 mg Orally Twice a day [facility] Simvastatin 1 tablet Orally No Longer Active 40 mg Orally Once a day [facility] Novolin R 23 units Injection Active 100 UNIT/ML Injection TID with meals [facility] Lisinopril 1 tablet Orally No Longer Active 10 mg Orally Once a day [facility] Metformin HCl TAKE TWO TABLETS BY MOUTH TWICE DAILY NA Active 500 [facility] Amlodipine Besylate TAKE ONE TABLET BY MOUTH EVERY DAY NA Active 10MG [facility] Aspirin 1 tablet Orally Active 325 MG Orally Once a day [facility] Amlodipine Besylate 10 Mg Tablet Daily Active [facility] Aspirin 81 Mg Tab.chew Daily Active [facility] Atorvastatin Calcium 20 Mg Tablet Bedtime Active [facility] Docusate Sodium 100 Mg Capsule Daily Active [facility] Finasteride 5 Mg Tablet Daily Active [facility] Flecainide Acetate 100 Mg Tablet Twice A Day Active [facility] Gabapentin 400 Mg Capsule Four Times Daily Active [facility] Hydrocodone Bit/Acetaminophen ([place] 10-325 Tablet) 1 Each Tablet Every 8 Hours as needed for Pain Active [facility] Metformin Hcl 500 Mg Tablet Twice A Day Active [facility] Morphine Sulfate (Morphine Sulfate Er) 30 Mg Tablet.er Every 12 Hours as needed for Pain Active [facility] Ramipril 5 Mg Capsule Daily Active [facility] Tamsulosin Hcl 0.4 Mg Cap.er.24h Daily Active [facility] Duloxetine Hcl (Cymbalta) 30 Mg Capsule.dr Daily Active [facility] Propranolol Hcl 40 Mg Tablet Twice A Day Active [facility] Sitagliptin Phosphate (Januvia) 100 Mg Tablet Daily Active [facility] Allergies, Adverse Reactions, Alerts Substance Category Reaction Severity Reaction type Status Date Reported Comments Source Carisoprodol Unknown Allergy to Substance Active 07/25/2018 [facility] Lincomycin Unknown Allergy to Substance Active 07/25/2018 [facility] Soma Assertion rash Drug allergy Active [facility] [...] glucometer (mass/volume) 147 70 - 120 02/01/2019 [facility] Blood leukocytes automated count (number/volume) 10.60 4.8 - 10.8 01/30/2019 [facility] Blood erythrocytes automated count (number/volume) 4.41 4.3 - 5.7 01/30/2019 [facility] Blood hemoglobin measurement (moles/volume) 13.4 14.0 - 18.0 01/30/2019 [facility] Automated blood hematocrit (volume fraction) 39.7 38.2 - 49.6 01/30/2019 [facility] Automated erythrocyte mean corpuscular volume 90.0 81 - 99 01/30/2019 [facility] Automated erythrocyte mean corpuscular hemoglobin (mass per erythrocyte) 30.4 28 - 32 01/30/2019 [facility] Automated erythrocyte mean corpuscular hemoglobin concentration measurement (mass/volume) 33.8 31 - 35 01/30/2019 [facility] RDW BldCo-Rto 13.4 11.7 - 14.4 01/30/2019 [facility] Automated blood platelet count (count/volume) 287 140 - 360 01/30/2019 [facility] Automated blood segmented neutrophil count as percentage of total leukocytes 63.3 38.7 - 80.0 01/30/2019 [facility] Automated blood lymphocyte count as percentage ot total leukocytes 21.1 18.0 - 39.1 01/30/2019 [facility] Automated blood monocyte count as percentage of total leukocytes 10.4 4.4 - 11.3 01/30/2019 [facility] Automated blood eosinophil count as percentage of total leukocytes 3.2 0.0 - 6.0 01/30/2019 [facility] Automated blood basophil count as percentage of total leukocytes 1.0 0.0 - 1.0 01/30/2019 [facility] IM GRANULOCYTES % 1.0 0.0 - 1.0 01/30/2019 [facility] Automated blood neutrophil count 6.7 2.1 - 6.9 01/30/2019 [facility] Blood lymphocytes count (number/volume) 2.2 1.0 - 3.2 01/30/2019 [facility] Blood monocytes automated count (number/volume) 1.1 0.2 - 0.8 01/30/2019 [facility] Automated blood eosinophil count 0.3 0.0 - 0.4 01/30/2019 [facility] Automated blood basophil count (count/volume) 0.1 0.0 - 0.1 01/30/2019 [facility] Absolute Immature Granulocyte (auto 0.11 0 - 0.1 01/30/2019 [facility] Serum or plasma sodium measurement (moles/volume) 136 136 - 145 01/30/2019 [facility] Serum or plasma potassium measurement (moles/volume) 3.5 3.5 - 5.1 01/30/2019 [facility] Serum or plasma chloride measurement (moles/volume) 102 98 - 107 01/30/2019 [facility] Serum or plasma carbon dioxide, total measurement (moles/volume) 25 22 - 29 01/30/2019 [facility] Serum or plasma anion gap 12.5 8 - 16 01/30/2019 [facility] Serum or plasma urea nitrogen measurement (mass/volume) 12 7 - 26 01/30/2019 [facility] Serum or plasma creatinine measurement (mass/volume) 0.71 0.72 - 1.25 01/30/2019 [facility] Serum or plasma urea nitrogen/creatinine mass ratio 17 6 - 25 01/30/2019 [facility] Estimated glomerular filtration rate (GFR) determination > 60 60 01/30/2019 [facility] Glucose measurement 132 74 - 118 01/30/2019 [facility] Serum or plasma calcium measurement (mass/volume) 8.6 8.4 - 10.2 01/30/2019 [facility] Prothrombin time (PT) in platelet poor plasma by coagulation assay 13.1 11.9 - 14.5 01/29/2019 [facility] INR in Platelet poor plasma by Coagulation assay 0.94 01/29/2019 [facility] Activated partial thromboplastin time (aPTT) in platelet poor plasma bycoagulation assay 32.0 23.8 - 35.5 01/29/2019 [facility] Clostridium difficile A and B toxin assay NEGATIVE NEGATIVE 01/29/2019 [facility] Cerebrospinal fluid appearance description BLOODY CLEAR 01/27/2019 [facility] Cerebrospinal fluid color identification RED COLORLESS 01/27/2019 [facility] Tube # CSF 3 01/27/2019 [facility] Manual cerebrospinal fluid leukocytes count (number/volume) 99 0 - 5 01/27/2019 [facility] Cerebrospinal fluid erythrocytes count (number/volume) 07703 0 - 10 01/27/2019 [facility] Cerebrospinal fluid glucose measurement (mass/volume) 87 40 - 70 01/27/2019 [facility] Cerebrospinal fluid protein measurement (mass/volume) 76.5 15 - 40 01/27/2019 [facility] Differential Total Cells Counted 100 01/24/2019 [facility] Manual blood neutrophils/100 leukocytes 70 40 - 74 01/24/2019 [facility] Manual blood lymphocytes/100 leukocytes 17 19 - 48 01/24/2019 [facility] Manual blood monocytes/100 leukocytes 10 3.4 - 9.0 01/24/2019 [facility] Manual blood eosinophil count as percentage of total leukocytes 3 0 - 7 01/24/2019 [facility] Blood platelets count by estimate (number/volume) ADEQUATE 01/24/2019 [facility] Platelet morphology NORMAL 01/24/2019 [facility] RBC morphology NORMAL 01/24/2019 [facility] Serum or plasma total bilirubin measurement (mass/volume) 0.6 0.2 - 1.2 01/24/2019 [facility] Aspartate Amino Transf (AST/SGOT) 10 5 - 34 01/24/2019 [facility] Serum or plasma alanine aminotransferase measurement (enzymatic activity/volume) 10 0 - 55 01/24/2019 [facility] Serum or plasma protein measurement (mass/volume) 6.6 6.5 - 8.1 01/24/2019 [facility] Serum or plasma albumin measurement (mass/volume) 3.1 3.5 - 5.0 01/24/2019 [facility] Plasma globulin measurement (mass/volume) 3.5 2.3 - 3.5 01/24/2019 [facility] Serum or plasma albumin/globulin mass ratio 0.9 0.8 - 2.0 01/24/2019 [facility] Serum or plasma alkaline phosphatase measurement (enzymatic activity/volume) 88 40 - 150 01/24/2019 [facility] Blood culture NO GROWTH AFTER 5 DAYS, FINAL REPORT 01/23/2019 [facility] Urine color determination YELLOW YELLOW 01/22/2019 [facility] Urine clarity CLOUDY CLEAR 01/22/2019 [facility] Specific gravity of Urine by Test strip >=1.030 1.010 - 1.025 01/22/2019 [facility] Urine pH measurement by automated test strip 6 5 - 7 01/22/2019 [facility] Urine leukocyte esterase detection by automated test strip SMALL NEGATIVE 01/22/2019 [facility] Urine nitrite detection by automated test strip POSITIVE NEGATIVE 01/22/2019 [facility] Urine protein detection by automated test strip 2+ NEGATIVE 01/22/2019 [facility] Urine glucose detection by automated test strip NEGATIVE NEGATIVE 01/22/2019 [facility] Urine ketones detection by automated test strip NEGATIVE NEGATIVE 01/22/2019 [facility] Urine urobilinogen measurement by test strip (mass/volume) 0.2 0.2 - 1 01/22/2019 [facility] Urine total bilirubin detection NEGATIVE NEGATIVE 01/22/2019 [facility] Urine erythrocytes detection MODERATE NEGATIVE 01/22/2019 [facility] Automated urine sediment leukocyte count by microscopy (number/high power field) >50 0 - 5 01/22/2019 [facility] Erythrocytes detection in urine sediment by light microscopy 11-20 0 - 5 01/22/2019 [facility] Bacteria detection in urine sediment by light microscopy MANY NONE 01/22/2019 [facility] Epithelial cells detection in urine sediment by light microscopy FEW NONE 01/22/2019 [facility] Lactic Acid Level 14.9 4.5 - 19.8 01/22/2019 [facility] Serum or plasma creatine kinase measurement (enzymatic activity/volume) 36 30 - 200 01/22/2019 [facility] Serum or plasma creatine kinase MB measurement (mass/volume) 0.60 0 - 5.0 01/22/2019 [facility] Troponin I measurement by highly sensitive enzyme immunoassay 0.001 0 - 0.300 01/22/2019 [facility] Urine color determination YELLOW YELLOW 01/09/2019 [facility] Urine clarity SL CLOUDY CLEAR 01/09/2019 [facility] Specific gravity of Urine by Test strip >=1.030 1.010 - 1.025 01/09/2019 [facility] Urine pH measurement by automated test strip 6 5 - 7 01/09/2019 [facility] Urine leukocyte esterase detection by automated test strip SMALL NEGATIVE 01/09/2019 [facility] Urine nitrite detection by automated test strip NEGATIVE NEGATIVE 01/09/2019 [facility] Urine protein detection by automated test strip 2+ NEGATIVE 01/09/2019 [facility] Urine glucose detection by automated test strip NEGATIVE NEGATIVE 01/09/2019 [facility] Urine ketones detection by automated test strip NEGATIVE NEGATIVE 01/09/2019 [facility] Urine urobilinogen measurement by test strip (mass/volume) 0.2 0.2 - 1 01/09/2019 [facility] Urine total bilirubin detection NEGATIVE NEGATIVE 01/09/2019 [facility] Urine erythrocytes detection 3+ NEGATIVE 01/09/2019 [facility] Automated urine sediment leukocyte count by microscopy (number/high power field) 6-10 0 - 5 01/09/2019 [facility] Erythrocytes detection in urine sediment by light microscopy 21-50 0 - 5 01/09/2019 [facility] Bacteria detection in urine sediment by light microscopy RARE NONE 01/09/2019 [facility] Epithelial cells detection in urine sediment by light microscopy RARE NONE 01/09/2019 [facility] Calcium oxalate crystals detection in urine sediment by light microscopy FEW FEW 01/09/2019 [facility] Calcium oxalate crystals detection in urine sediment by light microscopy FEW FEW 01/09/2019 [facility] Capillary blood glucose measurement by glucometer (mass/volume) 213 70 - 120 07/27/2018 [facility] Capillary blood glucose measurement by glucometer (mass/volume) 213 70 - 120 07/27/2018 [facility] Serum or plasma cortisol measurement on morning peak specimen (mass/volume) 15.8 6.2 - 19.4 07/26/2018 [facility] Serum or plasma cortisol measurement on morning peak specimen (mass/volume) 15.8 6.2 - 19.4 07/26/2018 [facility] Blood leukocytes automated count (number/volume) 11.30 4.8 - 10.8 07/26/2018 [facility] Hemoglobin A1c Percent 6.8 4.0 - 7.0 07/26/2018 [facility] Serum or plasma magnesium measurement (mass/volume) 2.1 1.3 - 2.1 07/26/2018 [facility] Serum or plasma triglyceride measurement (mass/volume) 114 0 - 149 07/26/2018 [facility] Serum or plasma cholesterol measurement (mass/volume) 103 0 - 199 07/26/2018 [facility] Serum or plasma cholesterol in LDL measurement (mass/volume) 48 60 - 130 07/26/2018 [facility] Serum or plasma cholesterol in HDL measurement (mass/volume) 32 40 - 60 07/26/2018 [facility] Serum or plasma total cholesterol/cholesterol in HDL mass ratio 3.2 3.9 - 4.7 07/26/2018 [facility] Serum or plasma thyrotropin measurement by detection limit <=0.005 miu/l (units/volume) 0.794 0.350 - 4.940 07/26/2018 [facility] Automated blood segmented neutrophil count as percentage of total leukocytes 61.3 38.7 - 80.0 07/26/2018 [facility] Automated blood lymphocyte count as percentage ot total leukocytes 25.0 18.0 - 39.1 07/26/2018 [facility] Automated blood monocyte count as percentage of total leukocytes 9.2 4.4 - 11.3 07/26/2018 [facility] Automated blood eosinophil count as percentage of total leukocytes 2.5 0.0 - 6.0 07/26/2018 [facility] Automated blood basophil count as percentage of total leukocytes 1.0 0.0 - 1.0 07/26/2018 [facility] IM GRANULOCYTES % 1.0 0.0 - 1.0 07/26/2018 [facility] Automated blood neutrophil count 6.9 2.1 - 6.9 07/26/2018 [facility] Blood lymphocytes count (number/volume) 2.8 1.0 - 3.2 07/26/2018 [facility] Blood monocytes automated count (number/volume) 1.0 0.2 - 0.8 07/26/2018 [facility] Automated blood eosinophil count 0.3 0.0 - 0.4 07/26/2018 [facility] Automated blood basophil count (count/volume) 0.1 0.0 - 0.1 07/26/2018 [facility] Absolute Immature Granulocyte (auto 0.11 0 - 0.1 07/26/2018 [facility] Aspartate Amino Transf (AST/SGOT) 21 5 - 34 07/26/2018 [facility] Serum or plasma alanine aminotransferase measurement (enzymatic activity/volume) 30 0 - 55 07/26/2018 [facility] Serum or plasma protein measurement (mass/volume) 7.2 6.5 - 8.1 07/26/2018 [facility] Serum or plasma albumin measurement (mass/volume) 3.1 3.5 - 5.0 07/26/2018 [facility] Plasma globulin measurement (mass/volume) 4.1 2.3 - 3.5 07/26/2018 [facility] Serum or plasma albumin/globulin mass ratio 0.8 0.8 - 2.0 07/26/2018 [facility] Serum or plasma alkaline phosphatase measurement (enzymatic activity/volume) 111 40 - 150 07/26/2018 [facility] Serum or plasma triglyceride measurement (mass/volume) 114 0 - 149 07/26/2018 [facility] Serum or plasma cholesterol measurement (mass/volume) 103 0 - 199 07/26/2018 [facility] Serum or plasma cholesterol in LDL measurement (mass/volume) 48 60 - 130 07/26/2018 [facility] Serum or plasma cholesterol in HDL measurement (mass/volume) 32 40 - 60 07/26/2018 [facility] Hemoglobin A1c Percent 6.8 4.0 - 7.0 07/26/2018 [facility] Serum or plasma magnesium measurement (mass/volume) 2.1 1.3 - 2.1 07/26/2018 [facility] Serum or plasma thyrotropin measurement by detection limit <=0.005 miu/l (units/volume) 0.794 0.350 - 4.940 07/26/2018 [facility] Aspartate Amino Transf (AST/SGOT) 21 5 - 34 07/26/2018 [facility] Serum or plasma alanine aminotransferase measurement (enzymatic activity/volume) 30 0 - 55 07/26/2018 [facility] Serum or plasma protein measurement (mass/volume) 7.2 6.5 - 8.1 07/26/2018 [facility] Serum or plasma albumin measurement (mass/volume) 3.1 3.5 - 5.0 07/26/2018 [facility] Plasma globulin measurement (mass/volume) 4.1 2.3 - 3.5 07/26/2018 [facility] Serum or plasma albumin/globulin mass ratio 0.8 0.8 - 2.0 07/26/2018 [facility] Serum or plasma alkaline phosphatase measurement (enzymatic activity/volume) 111 40 - 150 07/26/2018 [facility] Serum or plasma triglyceride measurement (mass/volume) 114 0 - 149 07/26/2018 [facility] Serum or plasma cholesterol measurement (mass/volume) 103 0 - 199 07/26/2018 [facility] Serum or plasma cholesterol in LDL measurement (mass/volume) 48 60 - 130 07/26/2018 [facility] Serum or plasma cholesterol in HDL measurement (mass/volume) 32 40 - 60 07/26/2018 [facility] Serum or plasma total cholesterol/cholesterol in HDL mass ratio 3.2 3.9 - 4.7 07/26/2018 [facility] Serum or plasma thyrotropin measurement by detection limit <=0.005 miu/l (units/volume) 0.794 0.350 - 4.940 07/26/2018 [facility] Serum or plasma sodium measurement (moles/volume) 137 136 - 145 07/26/2018 [facility] Serum or plasma potassium measurement (moles/volume) 4.1 3.5 - 5.1 07/26/2018 [facility] Serum or plasma chloride measurement (moles/volume) 103 98 - 107 07/26/2018 [facility] Serum or plasma carbon dioxide, total measurement (moles/volume) 25 22 - 29 07/26/2018 [facility] Serum or plasma anion gap 13.1 8 - 16 07/26/2018 [facility] Serum or plasma urea nitrogen measurement (mass/volume) 14 7 - 26 07/26/2018 [facility] Serum or plasma creatinine measurement (mass/volume) 0.80 0.72 - 1.25 07/26/2018 [facility] Serum or plasma urea nitrogen/creatinine mass ratio 18 6 - 25 07/26/2018 [facility] Estimated glomerular filtration rate (GFR) determination > 60 60 07/26/2018 [facility] Glucose measurement 186 74 - 118 07/26/2018 [facility] Serum or plasma calcium measurement (mass/volume) 9.4 8.4 - 10.2 07/26/2018 [facility] Hemoglobin A1c Percent 6.8 4.0 - 7.0 07/26/2018 [facility] Serum or plasma magnesium measurement (mass/volume) 2.1 1.3 - 2.1 07/26/2018 [facility] Serum or plasma total bilirubin measurement (mass/volume) 0.2 0.2 - 1.2 07/26/2018 [facility] Serum or plasma total cholesterol/cholesterol in HDL mass ratio 3.2 3.9 - 4.7 07/26/2018 [facility] Serum or plasma creatine kinase measurement (enzymatic activity/volume) 82 30 - 200 07/25/2018 [facility] Serum or plasma creatine kinase MB measurement (mass/volume) 1.10 0 - 5.0 07/25/2018 [facility] Troponin I measurement by highly sensitive enzyme immunoassay 0.007 0 - 0.300 07/25/2018 [facility] Blood culture NO GROWTH AFTER 5 DAYS, FINAL REPORT 07/25/2018 [facility] Serum or plasma creatine kinase measurement (enzymatic activity/volume) 82 30 - 200 07/25/2018 [facility] Serum or plasma creatine kinase MB measurement (mass/volume) 1.10 0 - 5.0 07/25/2018 [facility] Troponin I measurement by highly sensitive enzyme immunoassay 0.007 0 - 0.300 07/25/2018 [facility] Transitional cells detection in urine sediment by light microscopy MODERATE NONE 07/25/2018 [facility] Urine clarity CLOUDY CLEAR 07/25/2018 [facility] Specific gravity of Urine by Test strip 1.025 1.010 - 1.025 07/25/2018 [facility] Urine pH measurement by automated test strip 6 5 - 7 07/25/2018 [facility] Urine leukocyte esterase detection by dipstick 1+ NEGATIVE 07/25/2018 [facility] Urine nitrite detection POSITIVE NEGATIVE 07/25/2018 [facility] Urine protein measurement by test strip (mass/volume) TRACE NEGATIVE 07/25/2018 [facility] Urine glucose detection NEGATIVE NEGATIVE 07/25/2018 [facility] Urine ketones detection by automated test strip NEGATIVE NEGATIVE 07/25/2018 [facility] Urine urobilinogen measurement by test strip (mass/volume) 0.2 0.2 - 1 07/25/2018 [facility] Urine total bilirubin measurement (mass/volume) NEGATIVE NEGATIVE 07/25/2018 [facility] Urine erythrocytes detection 1+ NEGATIVE 07/25/2018 [facility] Automated urine sediment leukocyte count by microscopy (number/high power field) >50 0 - 5 07/25/2018 [facility] Erythrocytes detection in urine sediment by light microscopy 6-10 0 - 5 07/25/2018 [facility] Bacteria detection in urine sediment by light microscopy MANY NONE 07/25/2018 [facility] Epithelial cells detection in urine sediment by light microscopy FEW NONE 07/25/2018 [facility] Transitional cells detection in urine sediment by light microscopy MODERATE NONE 07/25/2018 [facility] Transitional cells detection in urine sediment by light microscopy MODERATE NONE 07/25/2018 [facility] Lactic Acid Level 18.1 4.5 - 19.8 07/25/2018 [facility] Lactic Acid Level 18.1 4.5 - 19.8 07/25/2018 [facility] ELECTROLYTES POC AGAP 16.0 10.0 - 20.0 [...] and Spine Bacterial urine culture Urine Culture [facility] Pathology Reports No Data Provided for This [...] L2- L3 posterior spinal fusion with spine [place] pedicle screws segmental instrumentation, allograft local bone [...] atrophy in the lower lumbar spine. 04/02/2018 [facility] Spine lumbar myelogram DX EXAM: SPINE LUMBAR MYELOGRAM DX Date: 04/02/2018 1334 hours PREPROCEDURE DIAGNOSIS: Lower back pain POST PROCEDURE DIAGNOSIS: Same ELIGIBILITY ANALYST: Dahlia Koehler M.D. GENERAL STUDIES PROGRAM CHAIR: Agustin Lombardi M.D ANESTHESIA: Local anesthesia was [...] for injection of intrathecal contrast material. 04/02/2018 [facility] lumbar 2 or 3 views DX EXAM: [...] L2-3 appear unchanged with adequate alignment. 11/21/2017 [facility] Spine lumbar single view DX EXAM: [...] alignment of L2-L3 posterior fixation hardware. 11/19/2017 [facility] Spine lumbar myelogram CT EXAM: MYELOGRAM [...] compressive effect on the nerve roots. 10/24/2017 [facility] Spine lumbar myelogram DX EXAM: MYELOGRAM [...] compressive effect on the nerve roots. 10/24/2017 [facility] Consultation Notes No Data Provided for [...] Provider ADM Date DC Date Status Source [facility] SENIOR CONSULTANT- FATIGUE [id number] 01/17/2013 01/17/2013 [facility] SENIOR CONSULTANT- FATIGUE [id number] 01/17/2013 01/17/2013 [facility] SENIOR CONSULTANT- FATIGUE [id number] 01/17/2013 01/17/2013 [facility] SENIOR CONSULTANT- FATIGUE [id number] 01/17/2013 01/17/2013 [facility] SENIOR CONSULTANT- FATIGUE [id number] 01/17/2013 01/17/2013 [facility] SENIOR CONSULTANT- FATIGUE [id number] 01/17/2013 01/17/2013 [facility] SENIOR CONSULTANT- FATIGUE [id number] 01/17/2013 01/17/2013 [facility] SENIOR CONSULTANT- FATIGUE [id number] 01/17/2013 01/17/2013 [facility] SENIOR CONSULTANT- FATIGUE [id number] 01/17/2013 01/17/2013 [facility] SENIOR CONSULTANT- FATIGUE [id number] 01/17/2013 01/17/2013 [facility] SENIOR CONSULTANT- FATIGUE [id number] 01/17/2013 01/17/2013 [facility] Unknown [id number] 02/10/2013 02/10/2013 [facility] Unknown [id number] 02/10/2013 02/10/2013 [facility] Unknown [id number] 02/10/2013 02/10/2013 [facility] Unknown [id number] 02/10/2013 02/10/2013 [facility] Unknown [id number] 02/10/2013 02/10/2013 [facility] Unknown [id number] 02/10/2013 02/10/2013 [facility] Unknown [id number] 02/10/2013 02/10/2013 [facility] Unknown [id number] 02/10/2013 02/10/2013 [facility] Unknown [id number] 02/10/2013 02/10/2013 [facility] Unknown [id number] 02/10/2013 02/10/2013 [facility] Unknown [id number] 02/10/2013 02/10/2013 [facility] Unknown [id number] 02/10/2013 02/10/2013 [facility] cough [id number] 02/13/2013 02/13/2013 [facility] cough [id number] 02/13/2013 02/13/2013 [facility] cough [id number] 02/13/2013 02/13/2013 [facility] cough [id number] 02/13/2013 02/13/2013 [facility] cough [id number] 02/13/2013 02/13/2013 [facility] cough [id number] 02/13/2013 02/13/2013 [facility] cough [id number] 02/13/2013 02/13/2013 [facility] cough [id number] 02/13/2013 02/13/2013 [facility] cough [id number] 02/13/2013 02/13/2013 [facility] cough [id number] 02/13/2013 02/13/2013 [facility] cough [id number] 02/13/2013 02/13/2013 [facility] Unknown [id number] 05/09/2013 05/09/2013 [facility] Unknown [id number] 05/09/2013 05/09/2013 [facility] Unknown [id number] 05/09/2013 05/09/2013 [facility] Unknown [id number] 05/09/2013 05/09/2013 [facility] Unknown [id number] 05/09/2013 05/09/2013 [facility] Unknown [id number] 05/09/2013 05/09/2013 [facility] Unknown [id number] 05/09/2013 05/09/2013 [facility] Unknown [id number] 05/09/2013 05/09/2013 [facility] Unknown [id number] 05/09/2013 05/09/2013 [facility] Heart racing [id number] 06/17/2013 06/17/2013 [facility] [employer] racing [id number] 06/17/2013 06/17/2013 [facility] [employer] [id number] 06/17/2013 06/17/2013 [facility] [employer] [id number] 06/17/2013 06/17/2013 [facility] [employer] [id number] 06/17/2013 06/17/2013 [facility] [employer] [id number] 06/17/2013 06/17/2013 [facility] racing [id number] 06/17/2013 06/17/2013 [facility] Unknown [id number] 06/18/2013 06/18/2013 [facility] Unknown [id number] 06/18/2013 06/18/2013 [facility] Unknown [id number] 06/18/2013 06/18/2013 [facility] Unknown [id number] 06/18/2013 06/18/2013 [facility] Unknown [id number] 06/18/2013 06/18/2013 [facility] Unknown [id number] 06/18/2013 06/18/2013 [facility] Unknown [id number] 06/18/2013 06/18/2013 [facility] Unknown [id number] 06/18/2013 06/18/2013 [facility] sick [id number] 06/23/2013 06/23/2013 [facility] sick [id number] 06/23/2013 06/23/2013 [facility] sick [id number] 06/23/2013 06/23/2013 [facility] sick [id number] 06/23/2013 06/23/2013 [facility] sick [id number] 06/23/2013 06/23/2013 [facility] sick [id number] 06/23/2013 06/23/2013 [facility] sick [id number] 06/23/2013 06/23/2013 [facility] sick [id number] 06/26/2013 06/26/2013 [facility] sick [id number] 06/26/2013 06/26/2013 [facility] sick [id number] 06/26/2013 06/26/2013 [facility] sick [id number] 06/26/2013 06/26/2013 [facility] sick [id number] 06/26/2013 06/26/2013 [facility] fell on ribs [id number] 09/23/2013 09/23/2013 [facility] fell on ribs [id number] 09/23/2013 09/23/2013 [facility] fell on ribs [id number] 09/23/2013 09/23/2013 [facility] fell on ribs [id number] 09/23/2013 09/23/2013 [facility] Unknown [id number] 11/12/2013 11/12/2013 [facility] Unknown [id number] 11/12/2013 11/12/2013 [facility] Unknown [id number] 11/12/2013 11/12/2013 [facility] REFILL [id number] 11/25/2013 11/25/2013 [facility] REFILL [id number] 11/25/2013 11/25/2013 [facility] REFILL [id number] 11/25/2013 11/25/2013 [facility] Unknown [id number] 01/12/2014 01/12/2014 [facility] Outpatient [id number] [facility] 10/24/2017 10/25/2017 [facility] Inpatient [id number] [facility] 11/19/2017 11/22/2017 [facility] PreReg [id number] [facility] 02/07/2018 02/07/2018 [facility] Outpatient [id number] [facility] 04/02/2018 04/03/2018 [facility] Discharged Inpatient [id number] JOHANNA CHRISTINE MD 07/25/2018 07/27/2018 [facility] Departed Emergency Room [id number] VU CHOI MD 01/09/2019 01/09/2019 [facility] Discharged Inpatient [id number] INEZ OLVERA MD 01/22/2019 02/01/2019 [facility] Procedures Procedure Code Date Perfomer Comments Source ROADS SUPERVISOR shunt [id number] 01/30/2019 [facility] Magnetic resonance imaging of brain without contrast [id number] 01/27/2019 [facility] Computed tomography of abdomen and pelvis with contrast [id number] 01/22/2019 [facility] Computed tomography of brain without radiopaque contrast [id number] 07/25/2018 [facility] Computed tomography of cervical spine without contrast [id number] 07/25/2018 [facility] Myelography via lumbar injection, including radiological supervision and interpretation; lumbosacral [id number] 04/02/2018 [facility] Spinal fusion [id number] 11/19/2017 [facility] Exploratory lumbar laminectomy [id number] 06/18/1984 [facility] Cataract extraction and insertion of intraocular lens [id number] [facility] Lumbar spinal fusion [id number] [facility] Rotator cuff repair [id number] [facility] Assessment and Plan Assessment [...] fusion. 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 [facility] Hospitalist Consult Please [email or web address] any questions 11/22/2017 [facility] Plan of Care Plan of Care Date Source Discharge Date 02/01/19 2:54pm Disposition TRANSFER SENIOR CARE Prescriptions See Medication Section 02/01/2019 [facility] Discharge Date 01/09/19 10:32pm Disposition HOME, SELF-CARE Condition at Discharge Stable Instructions/Education Provided Rehman Catheter Care Urinary Tract Infection - Men Forms Provided Work/School Excuse Prescriptions See Medication Section Referrals ADOLFO GERMAIN MD Order Date: Call for an appointment Address: [facility] [place] [address] Additional Instructions/Education - You have a UTI and penile pain secondary to rehman catheter - Take medications as prescribed - Follow up with Urologist 01/09/2019 [facility] Discharge Date 07/27/18 5:36pm Disposition HOME, SELF-CARE Instructions/Education Provided Pyelonephritis Prescriptions See Medication Section Referrals ALEENA FRANCIS MD (Endocrinology) Entered Date: 07/27/2018 4:48pm Address: [address] [place] [address] , [address] [place] [address] Additional Instructions/Education RESUME DIET AND ACTIVITIES DIRECTED. FOLLOW UP WITH YOUR PRIMARY CARE PROVIDER DIRECTED; FOLLOW UP WITH DR. FRANCIS IN 1-2 WEEKS. 07/27/2018 [facility] Social History Social History Date Source No social history information available. 02/01/2019 [facility] Social History TypeResponse Exercise 1 Alcohol Past Smoking Status Never smoker; Exposure to Tobacco Smoke None; Cigarette Smoking Last 365 Days No; Reg Smoking Cessation Counseling No entered on: 11/19/17 1Denies sob on exertion 11/06/2017 [facility] Social History ElementQualifiersDate Reported Ethnicity . Status , Is malay your primary language? Yes September 23, 2013 [...] Status: No September 23, 2013 Occupation: employed. [employer] September 23, 2013 09/23/2013 [employer] [...] yes, is advance directive on file with [facility]? No 07/25/18 6:47am If not on file with [facility] will patient provide a copy? No 07/25/18 6:47am Do you have a Directive to Physician? No 01/22/19 11:42pm Do you have a Medical Power of Seismic Computer? No 01/22/19 11:42pm Do you have an [...] rights and responsibilities? Yes 01/22/19 11:42pm 02/01/2019 [facility] Advance Directives Advance Directives Directive Response Recorded Date/Time Does the patient have an advance directive? No 07/25/18 6:47am If yes, is advance directive on file with [facility]? No 07/25/18 6:47am If not on file with [facility] will patient provide a copy? No 07/25/18 6:47am 01/09/2019 [facility] Advance Directives Advance Directives Directive Response Recorded Date/Time Does the patient have an advance directive? No 07/25/18 6:47am If yes, is advance directive on file with [facility]? No 07/25/18 6:47am If not on file with [facility] will patient provide a copy? No 07/25/18 6:47am Do you have a Directive to Physician? No 07/25/18 4:47am Do you have a Medical Power of Seismic Computer? No 07/25/18 4:47am Do you have an [...] rights and responsibilities? Yes 07/25/18 4:47am 07/27/2018 [facility] Functional Status No Data Provided for This Section
[2019-02-23] VITALS (9 sets, daily range): BP systolic 158–186; BP diastolic 73–104
--- NOTE | 2019-02-23 01:10 | NUR ---
received pt from ER to room 290, pt alert but forgetful,no c/o pain or discomfort, resp even and unlabored, 16F re[address] in place draining cloudy dark yellow urine, bed in lowest and locked position, call light in reach, bed alarm on
[2019-02-23] MEDS ORDERED: DEXTROSE 50% SYRINGE 50 ML IV PRN ×2 (01:15→09:45)
--- NOTE | 2019-02-23 06:40 | NUR ---
paged Dr dubose for consult, stated "I saw pt in ER I will see him tomorrow"
[2019-02-23 06:52] LABS: BASOPHILS # (AUTO) 0.1 (0.0-0.1); BASOPHILS % 0.5 % (0.0-1.0); EOSINOPHILS # (AUTO) 0.1 (0.0-0.4); EOSINOPHILS % 0.8 % (0.0-6.0); HEMATOCRIT 42.1 % (38.2-49.6); HEMOGLOBIN 14.1 g/dL (14.0-18.0); LYMPHOCYTES # (AUTO) 2.9 (1.0-3.2); MEAN CORPUSCULAR HEMOGLOBIN 30.1 pg (28-32); MEAN CORPUSCULAR HGB CONC 33.5 g/dL (31-35); MONOCYTES # (AUTO) 1.2 (0.2-0.8); MONOCYTES % 9.3 % (4.4-11.3); NEUTROPHILS # (AUTO) 8.4 (2.1-6.9); NEUTROPHILS % 65.9 % (38.7-80.0); PLATELET COUNT 271 x10e3/uL (140-360); RED BLOOD COUNT 4.68 x10e6/uL (4.3-5.7); RED CELL DISTRIBUTION WIDTH 12.5 % (11.7-14.4)
--- NOTE | 2019-02-23 07:06 | NUR ---
Received bedside report from night nurse. Patient resting in bed, no signs of distress at this time. All safety measures in place. Will continue to monitor.
[2019-02-23 07:14] LABS: ALANINE AMINOTRANSFERASE 11 IU/L (0-55); ALBUMIN 3.5 g/dL (3.5-5.0); ALBUMIN/GLOBULIN RATIO 0.9 (0.8-2.0); ALKALINE PHOSPHATASE 88 IU/L (40-150); ANION GAP 16.7 mmol/L (8-16); BLOOD UREA NITROGEN 12 mg/dL (7-26); BUN/CREATININE RATIO 14 (6-25); CALCIUM 9.4 mg/dL (8.4-10.2); CARBON DIOXIDE 24 mmol/L (22-29); CHLORIDE 101 mmol/L (98-107); CREATININE, SERUM 0.84 mg/dL (0.72-1.25); EST GLOMERULAR FILTRATION RATE > 60 ML/MIN (60-); GLUCOSE 162 mg/dL (74-118); POTASSIUM 3.7 mmol/L (3.5-5.1); SODIUM 138 mmol/L (136-145)
--- NOTE | 2019-02-23 08:06 | NUR ---
Paged Dr. Castrejon regarding patient's request for pain medication and high blood pressure (186/91). Awaiting return call.
[2019-02-23] MEDS: PROPRANOLOL HCL 60 MG ER CAP PO SCH ×3 (09:00→17:38)
[2019-02-23] MEDS: DULOXETINE HCL 30 MG DELAYED RELEASE PO SCH (09:34)
[2019-02-23] MEDS: SITAGLIPTIN 100 MG TAB PO SCH (09:34)
[2019-02-23] MEDS: TAMSULOSIN HCL 0.4 MG CAP PO SCH (09:34)
[2019-02-23] MEDS: FINASTERIDE 5 MG TAB PO SCH (09:34)
[2019-02-23] MEDS: METFORMIN HCL 500 MG TAB PO SCH ×2 (09:34→17:38)
[2019-02-23] MEDS: NPH, HUMAN INSULIN ISOPHANE 100 UNIT/1 ML 3ML VIAL SQ SCH ×2 (09:34→17:38)
[2019-02-23] MEDS: FLECAINIDE ACETATE 100 MG TAB PO SCH ×2 (09:34→17:38)
[2019-02-23] MEDS ORDERED: HYDRALAZINE HCL 20 MG/ML VIAL IV PRN (09:45)
[2019-02-23] MEDS ORDERED: AMLODIPINE BESYLATE 10 MG TAB PO NR (10:00)
--- NOTE | 2019-02-23 11:52 | History and Physical ---
CHIEF COMPLAINT: Possible headaches and altered mental status. The patient has a chronic indwelling England catheter. HISTORY OF PRESENT ILLNESS: This is a 68-year-old male with normal pressure hydrocephalus. The patient had a procedure done insertion of the right parietal ventriculoperitoneal shunt done by Dr. Burak Yanes on January 30, 2019. The patient seemed to be stable. Currently, he does not complain of any headaches. The patient seemed to be coherent, non confused, but he is unable to give me most of the history why he was brought into the hospital and per patient, he was brought into the hospital by his daughter. The patient is stating that he lives at home with his spouse. Currently, the patient does not have any complaint of any pain. He is stable. He had a England catheter in place. He is afebrile. No headaches. No chest pain. No shortness of breath. No abdominal pain. PAST MEDICAL HISTORY: Normal-pressure hydrocephalus, status post insertion of right parietal ventriculoperitoneal shunt done by Dr. Burak Yanes on January 30, 2019. He has history of depression, neuropathy, chronic pain syndrome, diabetes type 2, hypertension, enlarged prostate, dyslipidemia, and arrhythmia. PAST SURGICAL HISTORY: Back surgery and status post TRACKWALKER shunt in January as mentioned above. SOCIAL HISTORY: The patient lives with his family. ALLERGIES: SOMA AND LINCOMYCIN. HOME MEDICATIONS: List is reviewed. REVIEW OF SYSTEMS: Otherwise, unremarkable. PHYSICAL EXAMINATION: VITAL SIGNS: Temperature is 98.6, blood pressure 140/88, pulse rate 105, respirations 18. GENERAL: The patient is awake, alert, not in any distress. HEENT: Status post TRACKWALKER shunt. No laceration. No acute finding. NECK: Grossly supple. PULMONARY: Clear. CARDIOVASCULAR: Tachycardia but now regular rate and rhythm. ABDOMEN: Soft, non-distention. EXTREMITIES: No cyanosis or edema. England catheter in place. NEUROLOGIC: Moving all extremities without any focal deficit. LABORATORY DATA: WBC is 13.9, hemoglobin 12.2, hematocrit 43.2, platelet is 303. Chemistry; sodium 137, potassium 3.9, chloride 100, bicarb 22, BUN is 13, creatinine 0.8, glucose is 167. Urinalysis is positive for wbc, trace leukocyte esterase, 3+ protein, negative glucose, cloudy urine. England catheter. IMPRESSION: 1. Urinary tract infection associated with indwelling England catheter. 2. Recent TRACKWALKER shunt. The patient had a shunt study done shown poor visualization of tubing in the chest. The patient has a CT scan of the brain done show the moderate ventriculomegaly, stable from previous examination. 3. Per family with headaches and altered mental status, resolved. 4. Hypertensive urgency. PLAN: Resume home medication. Discontinue IV fluids. Rocephin 1 g daily[address] with Dr. Burak Yanes. We will evaluate the patient. Repeat blood work in the morning. MD CEZAR Love/SOWMYA /[id number]
[2019-02-23] MEDS: INSULIN LISPRO 100 UNIT/1 ML 3ML VIAL SQ SCH ×3 (12:30→23:35)
--- NOTE | 2019-02-23 19:28 | NUR ---
Bedside report given to night nurse. Patient resting in bed, no signs of distress at this time. All safety measures in place.
--- NOTE | 2019-02-23 20:00 | NUR ---
RECEIVED PT IN BED AOX3 .RESPIRATIONS ARE EVEN AND UNLABORED .DENIES PAIN CALL LIGHT WITH IN REACH CONTINUE TO MONITOR
[2019-02-23] MEDS: CEFTRIAXONE SOD 1 GM/NS 50 ML 50 ML IV SCH (23:00)
[2019-02-24 00:24] VITALS: BP 146/73
[2019-02-24 04:55] VITALS: BP 143/77
[2019-02-24] MEDS ORDERED: AMLODIPINE BESYLATE 10 MG TAB PO SCH (06:00)
[2019-02-24 06:31] LABS: BASOPHILS # (AUTO) 0.1 (0.0-0.1); BASOPHILS % 0.8 % (0.0-1.0); EOSINOPHILS # (AUTO) 0.3 (0.0-0.4); EOSINOPHILS % 2.4 % (0.0-6.0); HEMATOCRIT 40.5 % (38.2-49.6); LYMPHOCYTES # (AUTO) 2.7 (1.0-3.2); LYMPHOCYTES % 26.3 % (18.0-39.1); MEAN CORPUSCULAR HEMOGLOBIN 30.9 pg (28-32); MEAN CORPUSCULAR HGB CONC 34.6 g/dL (31-35); MEAN CORPUSCULAR VOLUME 89.4 fL (81-99); MONOCYTES % 10.1 % (4.4-11.3); NEUTROPHILS # (AUTO) 6.2 (2.1-6.9); NEUTROPHILS % 59.9 % (38.7-80.0); PLATELET COUNT 268 x10e3/uL (140-360); RED BLOOD COUNT 4.53 x10e6/uL (4.3-5.7); RED CELL DISTRIBUTION WIDTH 12.4 % (11.7-14.4)
--- NOTE | 2019-02-24 06:31 | NUR ---
PT RESTED DURING THE NIGHT .DENIES PAIN .CALL LIGHT WITH IN REACH .CONTINUE TO MONITOR
[2019-02-24 06:53] LABS: ANION GAP 14.5 mmol/L (8-16); BLOOD UREA NITROGEN 10 mg/dL (7-26); BUN/CREATININE RATIO 13 (6-25); CALCIUM 9.2 mg/dL (8.4-10.2); CARBON DIOXIDE 25 mmol/L (22-29); CHLORIDE 100 mmol/L (98-107); CREATININE, SERUM 0.77 mg/dL (0.72-1.25); EST GLOMERULAR FILTRATION RATE > 60 ML/MIN (60-); GLUCOSE 121 mg/dL (74-118); POTASSIUM 3.5 mmol/L (3.5-5.1); SODIUM 136 mmol/L (136-145)
--- NOTE | 2019-02-24 07:10 | NUR ---
BEDSIDE REPORT GIVEN TO THE ONCOMING NURSE NO ACUTE DISTRESS NOTED
--- NOTE | 2019-02-24 07:15 | NUR ---
PT IN BED SLEEPING NO S/S DISOCMFORT.
[2019-02-24 08:01] VITALS: BP 156/76
[2019-02-24 08:15] VITALS: BP 156/76
[2019-02-24] MEDS: INSULIN LISPRO 100 UNIT/1 ML 3ML VIAL SQ SCH ×2 (08:30→11:30)
[2019-02-24] MEDS: NPH, HUMAN INSULIN ISOPHANE 100 UNIT/1 ML 3ML VIAL SQ SCH (08:30)
--- NOTE | 2019-02-24 08:30 | NUR ---
PT ASSISTED UP TO CHAIR,DENIES PAIN
[2019-02-24] MEDS: DULOXETINE HCL 30 MG DELAYED RELEASE PO SCH (08:37)
[2019-02-24] MEDS: METFORMIN HCL 500 MG TAB PO SCH (08:37)
[2019-02-24] MEDS: TAMSULOSIN HCL 0.4 MG CAP PO SCH (08:38)
[2019-02-24] MEDS: FINASTERIDE 5 MG TAB PO SCH (08:40)
[2019-02-24] MEDS: SITAGLIPTIN 100 MG TAB PO SCH (08:40)
[2019-02-24] MEDS: PROPRANOLOL HCL 60 MG ER CAP PO SCH (08:40)
[2019-02-24] MEDS: FLECAINIDE ACETATE 100 MG TAB PO SCH (08:41)
[2019-02-24 11:44] VITALS: BP 124/59
[2019-02-24 11:45] LABS: FOLATE 11.1 ng/mL (7.0-15.4)
[2019-02-24] MEDS ORDERED: ONDANSETRON HCL 4 MG ORAL DISINTEGRATING TAB PO PRN (14:45)
[2019-02-24] MEDS ORDERED: CEFTRIAXONE SOD 500 MG VIAL IM ONE (15:00)
--- NOTE | 2019-02-24 15:03 | NUR ---
PT DISCHARGED HOME ,IV DCD WITHOUT REDNESSOR SWELLING,INSTRUCTIONS GIVEN, COPY ON CHART.SCHMID CATH IN PLACE.TRANSPORTED TO [facility] VIA W/C
--- NOTE | 2019-02-24 16:49 | Consultation ---
DATE OF CONSULTATION: 02/24/2019 REASON FOR CONSULTATION: Evaluate HARNESS RIGGER shunt. HISTORY OF PRESENT ILLNESS: The patient is a 68-year-old man, who underwent placement of a ventriculoperitoneal shunt by me a couple of weeks ago for treatment of normal-pressure hydrocephalus. He was seen by my office 1 week after the surgery and was found to have a greatly improved with regard to his mental status and mobility. Apparently on Sunday, 2 days ago, he had several episodes of vomiting and was brought to the emergency room and admitted. He was found to have a urinary tract infection. A CT of the brain and shunt series was performed and I was consulted. In the meanwhile, his vomiting subsided immediately after admission. He denies any headaches. He remains at his improved neurological state. PHYSICAL EXAMINATION: On examination, the patient is wide awake, and comfortable. He recognizes me immediately and tells me that I am the doctor, who put in his shunt, this is significantly better than anything, here he could say preoperatively. Cranial nerves are intact. Motor strength is symmetric. He is able to stand and walk with an unstable gait with a walker. IMAGING STUDIES: I reviewed the CT of the brain and a shunt series. The head CT reveals the shunt to be perfectly placed. Ventricular size remains at baseline. There are no untoward findings. The shunt x-ray series is not relevant since the shunt was recently placed and no disruption in the shunt tubing would be expected at this early time point. Nonetheless, the shunt can be visualized on close examination throughout its course and ends up in the left upper quadrant of the abdomen in correct position. In addition, I tested the shunt by pumping its reservoir. The shunt pumps readily and refills quickly as expected. IMPRESSION: Intact ventriculoperitoneal shunt. The patient's neuro status has improved compared to preoperatively. He can be discharged back home from my standpoint. Burak Yanes MD PP/SOWMYA /[id number]
[2019-02-25] MEDS ORDERED: ASPIRIN 81 MG CHEW TAB PO SCH (09:00)
== END 2019-02-24 15:05 | disposition home or self-care (01) | DRG 700 ==
LOC: ER 20:44 → ERHOLD 23:51 → MED/SURG3 02-23 01:10 → OBSVTOIN 02-23 09:46
PROVIDERS: ADMIT Internal Medicine; ATTEND Internal Medicine
DX: T83.511A Infection and inflammatory reaction due to indwelling urethral catheter, initial encounter (principal); Z98.2 Presence of cerebrospinal fluid drainage device; I16.0 Hypertensive urgency; G93.89 Other specified disorders of brain; G89.4 Chronic pain syndrome; E11.9 Type 2 diabetes mellitus without complications; E78.5 Hyperlipidemia, unspecified; N40.0 Benign prostatic hyperplasia without lower urinary tract symptoms
CPT/HCPCS: 36415; 70450; 71045; 75809; 80048; 80053; 81001; 82550; 82553; 82607; 82746; 82948; 83690; 83735; 84484; 85025; 85730; 87086; 87186; 93005; 99284; G0378; J0696; J2405; J7030

== ENCOUNTER 2019-03-03 13:15 | Emergency (ER) | payer MEDICARE ==
[~2019-03-03] VITALS: Ht 177.8 cm; Wt 93.4 kg
--- OUTSIDE RECORDS SUMMARY | 2019-03-03 13:18 | XMS REPORT | Clinical Summary ---
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 05/14/2018 indomethacin (INDOCIN) 25 Take 1 90 capsule 0 MG capsule capsule (25 8 mg total) by mouth 3 (three) times a day with meals for 90 days. 02/13/2019 clonIDINE (CATAPRES) 0.1 Take 1 tablet 0 MG tablet (0.1 mg 8 total) by mouth every 8 (eight) hours as needed for high blood pressure (SBP > 160). Active Problems Problem Noted Date Pain of [...] (Primary Dx) 12/03/2018 Transcribe Access Orders after 03/02/2018 Family History Medical History Relation Name Comments [...] AM CDT region, with neurogenic claudication after 03/02/2018 Results * MRI Lumbar Spine Wo Contrast [...] possible left L4-L5 subarticular zone disc protrusion. [id number] Procedure Note Hm Interface, Radiology Results Incoming [...] possible left L4-L5 subarticular zone disc protrusion. [id number] Performing Organization Address City/State/Zipcode Phone Number [place] [address] 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
--- OUTSIDE RECORDS SUMMARY | 2019-03-03 13:19 | XMS REPORT | Continuity of Care Document ---
Author Author Jeeves Organization [facility] Address Unknown Phone Unavailable Care Team Providers Care Ethics Officer Name Role Phone [facility] Unavailable Unavailable Problems Problem Status Onset Date Classification Date Reported Comments Source M48.062 Active 01/14/2019 [facility] Sacrococcygeal disorders, not elsewhere classified 04/19/2018 10/20/2018 [facility] M48.061, M43.16 Active 03/31/2018 [facility] M48.061, M43.16 BACK PAIN Active 03/31/2018 [facility] M48.061, M43.16 LOW BACK PAIN Active 01/29/2018 [facility] STENOSIS Active 10/31/2017 [facility] M43.16, M48.061 Active 10/16/2017 [facility] MRSA culture positive(Confirmed)2 Active 06/18/2007 Problem 10/20/2018 [facility] Tachycardia Active Diagnosis 06/25/2013 [facility] Asthma1 Active Problem [...] [facility] Sepsis Active Problem 02/01/2019 [facility] Urinary tract infection Active Problem 02/01/2019 [facility] SPONDYLOLISTHESIS, LUMBAR REGION Active [facility] SPINAL STENOSIS, LUMBAR REGION WITHOUT N Active [facility] SPINAL STENOSIS, LUMBAR REGION WITH NEUR Active [facility] Medications Medication Details Route Status Patient Instructions Ordering Provider Order Date Source Atorvastatin Calcium 20 Mg Tablet, 20 Mg Oral Bedtime Active 01/23/2019 [facility] Docusate Sodium 100 Mg Capsule, 100 Mg Oral Daily Active 01/23/2019 [facility] Morphine Sulfate (Morphine Sulfate Er) 30 Mg Tablet.er, 15 Mg Oral Every 12 Hours as needed for Pain Active 01/23/2019 [facility] Ramipril 5 Mg Capsule, 5 Mg Oral Daily Active 01/23/2019 [facility] Insulin Regular, Human (Humulin R) 100 Unit/1 Ml Vial Before Meals Active Lesley 07/27/2018 [facility] Nph, Human Insulin Isophane (Novolin N) 100 Unit/1 Ml Vial Twice A Day Active Lesley 07/27/2018 [facility] Tetracycline Hcl 500 Mg Capsule Twice A Day Active [facility] 07/27/2018 [facility] Insulin Regular, Human (Humulin R) 100 Unit/1 Ml Vial, 25 Unit Sub-Q Before Meals Active 07/27/2018 [facility] Nph, Human Insulin Isophane (Novolin N) 100 Unit/1 Ml Vial, 25 Unit Sub-Q Twice A Day Active 07/27/2018 [facility] Tetracycline Hcl 500 Mg Capsule, 500 Mg Oral Twice A Day Active Les[facility] 07/27/2018 [facility] Duloxetine Hcl (Cymbalta) 30 Mg Capsule.dr, 60 Mg Oral Daily Active 07/25/2018 [facility] Losartan Potassium 25 Mg Tablet, 25 Mg Peg Tube Daily Active 07/25/2018 [facility] tizanidine 4 MG Oral Capsule [Zanaflex] 4 mg=1 cap, PO, TID, # 40 cap, 0 Refill(s) Active 11/21/2017 [facility] Acetaminophen 325 MG / Hydrocodone Bitartrate 10 MG Oral Tablet [Cotton 10/325] 1-2 tab, PO, Q4-6H, PRN Pain, [...] Longer Active 11/20/2017 [facility] sennosides, [facility] 8.6 mg, 1 tab, Route: PO, Drug [...] units) WASTE: F/P - Black; E - FlipGive Trash Bin Stable for 28 days at [...] mL, Route: IV, Initial Loading Dose: 0.4mg, SILK WEAVER Dose: 0.3 mg, SILK WEAVER Lockout: 15 minutes, Continuous Basal Rate: 0 mg, 4 Hour Limit (In MG): 7, Drug Form: INJ, Continuous, Start date: 11/19/17 11 :20:00 CDT, Duration: 30 day, Stop date: 12/19/17...Notes: (Same as: Dilaudid) conc=0.5 mg/ml Hydromorphone SILK WEAVER Dose: ;Delay: ;Basal: No Longer Active 11/19/2017 [...] day, Stop date: 12/19/17 11:19:00 CDT, 2.31, e2Tsncy: PREMIX IV - Do Not Alter WASTE: [...] not exceed 4gm/day of acetaminophen. (Same as: Cotton 325/10) No Longer Active 11/19/2017 [facility] [...] 11:19:00 CDTNotes: (aluminum hydroxide-mag nesium hyd- simethicone [phone]/5ml 30 ml ud GEO) No Longer Active [...] Orally every 6 hrs prn rib pain [facility] 09/23/2013 [facility] Ipratropium [place] as directed Inhalation Active 0.02 % Inhalation every 4 hours [facility] 06/26/2013 [facility] Norel CS 1 teaspoon Orally Active 10-4-12.5 MG/5ML Orally three times a day (tid) [facility] 06/26/2013 [facility] ProAir HFA 2 puffs as needed Inhalation Active 108 (90 Base) MCG/ACT Inhalation every 4 -6 hrs [facility] 06/23/2013 [facility] Zithromax Z-Landry 2 tablets on the first day, then 1 tablet daily for 4 days Orally Active 250 MG Orally Once a day [facility] 06/23/2013 [facility] Bystolic 1 tablet Orally Active 10 mg Orally Once a day [facility] 06/17/2013 [facility] Cymbalta 1 capsule Orally Active 60 MG Orally Once a day (patient needs to be seen before next refill) [facility] 05/09/2013 [facility] Cymbalta 1 capsule Orally No Longer Active 30 mg Orally Once a day [place] 02/13/2013 [facility] Tramadol HCl 1 tablet as needed Orally Active 50 mg Orally every 6 hrs [place] 02/13/2013 [facility] Cymbalta 1 capsule Orally Active 60 MG Orally Once a day [place] 02/13/2013 [facility] Amlodipine Besylate 1 tablet Orally Active 10 mg Orally Once a day [facility] 02/13/2013 [facility] Novolin N 23 units Subcutaneous Active 100 UNIT/ML Subcutaneous AM and PM [facility] Metformin HCl 2 tablet Orally Active 500 mg Orally Twice a day [facility] Simvastatin 1 tablet Orally No Longer Active 40 mg Orally Once a day [facility] Novolin R 23 units Injection Active 100 UNIT/ML Injection TID with meals [facility] Lisinopril 1 tablet Orally No Longer Active 10 mg Orally Once a day [facility] Metformin HCl TAKE TWO TABLETS BY MOUTH TWICE DAILY NA Active [address] [facility] [address] [facility] Amlodipine Besylate TAKE ONE TABLET BY MOUTH EVERY DAY NA Active [facility] Aspirin 1 tablet Orally Active 325 MG Orally Once a day [facility] Amlodipine Besylate 10 Mg Tablet Daily Active [facility] Aspirin 81 Mg Tab.chew Daily Active [facility] Atorvastatin Calcium 20 Mg Tablet Bedtime Active [facility] Docusate Sodium 100 Mg Capsule Daily Active [facility] Finasteride 5 Mg Tablet Daily Active [facility] Flecainide Acetate 100 Mg Tablet Twice A Day Active [facility] Gabapentin 400 Mg Capsule Four Times Daily Active [facility] Hydrocodone Bit/Acetaminophen (Cotton 10-325 Tablet) 1 Each Tablet Every 8 Hours as needed for Pain Active [facility] Metformin Hcl 500 Mg Tablet Twice A Day Active [facility] Morphine Sulfate (Morphine Sulfate Er) 30 Mg Tablet.er Every 12 Hours as needed for Pain Active [facility] Ramipril 5 Mg Capsule Daily Active [facility] Tamsulosin Hcl 0.4 Mg Cap.er.24h Daily Active [facility] Duloxetine Hcl (Cymbalta) 30 Mg Capsule.dr Daily Active [facility] Propranolol Hcl 40 Mg Tablet Twice A Day Active [facility] Sitagliptin Phosphate (Januvia) 100 Mg Tablet Daily Active [facility] Allergies, Adverse Reactions, Alerts Substance Category Reaction Severity Reaction type Status Date Reported Comments Source Carisoprodol Unknown Allergy to Substance Active 07/25/2018 [facility] Lincomycin Unknown Allergy to Substance Active 07/25/2018 [facility] Soma Assertion rash Drug allergy Active [...] glucometer (mass/volume) 147 70 - 120 02/01/2019 [facility] Blood leukocytes automated count (number/volume) 10.60 4.8 - 10.8 01/30/2019 [facility] Blood erythrocytes automated count (number/volume) 4.41 4.3 - 5.7 01/30/2019 [facility] Blood hemoglobin measurement (moles/volume) 13.4 14.0 - 18.0 01/30/2019 [facility] Automated blood hematocrit (volume fraction) 39.7 38.2 - 49.6 01/30/2019 [facility] Automated erythrocyte mean corpuscular volume 90.0 81 - 99 01/30/2019 [facility] Automated erythrocyte mean corpuscular hemoglobin (mass per erythrocyte) 30.4 28 - 32 01/30/2019 [facility] Automated erythrocyte mean corpuscular hemoglobin concentration measurement (mass/volume) 33.8 31 - 35 01/30/2019 [facility] RDW BldCo-Rto 13.4 11.7 - 14.4 01/30/2019 [facility] Automated blood platelet count (count/volume) 287 140 - 360 01/30/2019 [facility] Automated blood segmented neutrophil count as percentage of total leukocytes 63.3 38.7 - 80.0 01/30/2019 [facility] Automated blood lymphocyte count as percentage ot total leukocytes 21.1 18.0 - 39.1 01/30/2019 [facility] Automated blood monocyte count as percentage of total leukocytes 10.4 4.4 - 11.3 01/30/2019 [facility] Automated blood eosinophil count as percentage of total leukocytes 3.2 0.0 - 6.0 01/30/2019 [facility] Automated blood basophil count as percentage of total leukocytes 1.0 0.0 - 1.0 01/30/2019 [facility] IM GRANULOCYTES % 1.0 0.0 - 1.0 01/30/2019 [facility] Automated blood neutrophil count 6.7 2.1 - 6.9 01/30/2019 [facility] Blood lymphocytes count (number/volume) 2.2 1.0 - 3.2 01/30/2019 [facility] Blood monocytes automated count (number/volume) 1.1 0.2 - 0.8 01/30/2019 [facility] Automated blood eosinophil count 0.3 0.0 - 0.4 01/30/2019 [facility] Automated blood basophil count (count/volume) 0.1 0.0 - 0.1 01/30/2019 [facility] Absolute Immature Granulocyte (auto 0.11 0 - 0.1 01/30/2019 [facility] Serum or plasma sodium measurement (moles/volume) 136 136 - 145 01/30/2019 [facility] Serum or plasma potassium measurement (moles/volume) 3.5 3.5 - 5.1 01/30/2019 [facility] Serum or plasma chloride measurement (moles/volume) 102 98 - 107 01/30/2019 [facility] Serum or plasma carbon dioxide, total measurement (moles/volume) 25 22 - 29 01/30/2019 [facility] Serum or plasma anion gap 12.5 8 - 16 01/30/2019 [facility] Serum or plasma urea nitrogen measurement (mass/volume) 12 7 - 26 01/30/2019 [facility] Serum or plasma creatinine measurement (mass/volume) 0.71 0.72 - 1.25 01/30/2019 [facility] Serum or plasma urea nitrogen/creatinine mass ratio 17 6 - 25 01/30/2019 [facility] Estimated glomerular filtration rate (GFR) determination > 60 60 01/30/2019 [facility] Glucose measurement 132 74 - 118 01/30/2019 [facility] Serum or plasma calcium measurement (mass/volume) 8.6 8.4 - 10.2 01/30/2019 [facility] Prothrombin time (PT) in platelet poor plasma by coagulation assay 13.1 11.9 - 14.5 01/29/2019 [facility] INR in Platelet poor plasma by Coagulation assay 0.94 01/29/2019 [facility] Activated partial thromboplastin time (aPTT) in platelet poor plasma bycoagulation assay 32.0 23.8 - 35.5 01/29/2019 [facility] Clostridium difficile A and B toxin assay NEGATIVE NEGATIVE 01/29/2019 [facility] Cerebrospinal fluid appearance description BLOODY CLEAR 01/27/2019 [facility] Cerebrospinal fluid color identification RED COLORLESS 01/27/2019 [facility] Tube # CSF 3 01/27/2019 [facility] Manual cerebrospinal fluid leukocytes count (number/volume) 99 0 - 5 01/27/2019 [facility] Cerebrospinal fluid erythrocytes count (number/volume) 40207 0 - 10 01/27/2019 [facility] Cerebrospinal fluid glucose measurement (mass/volume) 87 40 - 70 01/27/2019 [facility] Cerebrospinal fluid protein measurement (mass/volume) 76.5 15 - 40 01/27/2019 [facility] Differential Total Cells Counted 100 01/24/2019 [facility] Manual blood neutrophils/100 leukocytes 70 40 - 74 01/24/2019 [facility] Manual blood lymphocytes/100 leukocytes 17 19 - 48 01/24/2019 [facility] Manual blood monocytes/100 leukocytes 10 3.4 - 9.0 01/24/2019 [facility] Manual blood eosinophil count as percentage of total leukocytes 3 0 - 7 01/24/2019 [facility] Blood platelets count by estimate (number/volume) ADEQUATE 01/24/2019 [facility] Platelet morphology NORMAL 01/24/2019 [facility] RBC morphology NORMAL 01/24/2019 [facility] Serum or plasma total bilirubin measurement (mass/volume) 0.6 0.2 - 1.2 01/24/2019 [facility] Aspartate Amino Transf (AST/SGOT) 10 5 - 34 01/24/2019 [facility] Serum or plasma alanine aminotransferase measurement (enzymatic activity/volume) 10 0 - 55 01/24/2019 [facility] Serum or plasma protein measurement (mass/volume) 6.6 6.5 - 8.1 01/24/2019 [facility] Serum or plasma albumin measurement (mass/volume) 3.1 3.5 - 5.0 01/24/2019 [facility] Plasma globulin measurement (mass/volume) 3.5 2.3 - 3.5 01/24/2019 [facility] Serum or plasma albumin/globulin mass ratio 0.9 0.8 - 2.0 01/24/2019 [facility] Serum or plasma alkaline phosphatase measurement (enzymatic activity/volume) 88 40 - 150 01/24/2019 [facility] Blood culture NO GROWTH AFTER 5 DAYS, FINAL REPORT 01/23/2019 [facility] Urine color determination YELLOW YELLOW 01/22/2019 [facility] Urine clarity CLOUDY CLEAR 01/22/2019 [facility] Specific gravity of Urine by Test strip >=1.030 1.010 - 1.025 01/22/2019 [facility] Urine pH measurement by automated test strip 6 5 - 7 01/22/2019 [facility] Urine leukocyte esterase detection by automated test strip SMALL NEGATIVE 01/22/2019 [facility] Urine nitrite detection by automated test strip POSITIVE NEGATIVE 01/22/2019 [facility] Urine protein detection by automated test strip 2+ NEGATIVE 01/22/2019 [facility] Urine glucose detection by automated test strip NEGATIVE NEGATIVE 01/22/2019 [facility] Urine ketones detection by automated test strip NEGATIVE NEGATIVE 01/22/2019 [facility] Urine urobilinogen measurement by test strip (mass/volume) 0.2 0.2 - 1 01/22/2019 [facility] Urine total bilirubin detection NEGATIVE NEGATIVE 01/22/2019 [facility] Urine erythrocytes detection MODERATE NEGATIVE 01/22/2019 [facility] Automated urine sediment leukocyte count by microscopy (number/high power field) >50 0 - 5 01/22/2019 [facility] Erythrocytes detection in urine sediment by light microscopy 11-20 0 - 5 01/22/2019 [facility] Bacteria detection in urine sediment by light microscopy MANY NONE 01/22/2019 [facility] Epithelial cells detection in urine sediment by light microscopy FEW NONE 01/22/2019 [facility] Lactic Acid Level 14.9 4.5 - 19.8 01/22/2019 [facility] Serum or plasma creatine kinase measurement (enzymatic activity/volume) 36 30 - 200 01/22/2019 [facility] Serum or plasma creatine kinase MB measurement (mass/volume) 0.60 0 - 5.0 01/22/2019 [facility] Troponin I measurement by highly sensitive enzyme immunoassay 0.001 0 - 0.300 01/22/2019 [facility] Urine color determination YELLOW YELLOW 01/09/2019 [facility] Urine clarity SL CLOUDY CLEAR 01/09/2019 [facility] Specific gravity of Urine by Test strip >=1.030 1.010 - 1.025 01/09/2019 [facility] Urine pH measurement by automated test strip 6 5 - 7 01/09/2019 [facility] Urine leukocyte esterase detection by automated test strip SMALL NEGATIVE 01/09/2019 [facility] Urine nitrite detection by automated test strip NEGATIVE NEGATIVE 01/09/2019 [facility] Urine protein detection by automated test strip 2+ NEGATIVE 01/09/2019 [facility] Urine glucose detection by automated test strip NEGATIVE NEGATIVE 01/09/2019 [facility] Urine ketones detection by automated test strip NEGATIVE NEGATIVE 01/09/2019 [facility] Urine urobilinogen measurement by test strip (mass/volume) 0.2 0.2 - 1 01/09/2019 [facility] Urine total bilirubin detection NEGATIVE NEGATIVE 01/09/2019 [facility] Urine erythrocytes detection 3+ NEGATIVE 01/09/2019 [facility] Automated urine sediment leukocyte count by microscopy (number/high power field) 6-10 0 - 5 01/09/2019 [facility] Erythrocytes detection in urine sediment by light microscopy 21-50 0 - 5 01/09/2019 [facility] Bacteria detection in urine sediment by light microscopy RARE NONE 01/09/2019 [facility] Epithelial cells detection in urine sediment by light microscopy RARE NONE 01/09/2019 [facility] Calcium oxalate crystals detection in urine sediment by light microscopy FEW FEW 01/09/2019 [facility] Calcium oxalate crystals detection in urine sediment by light microscopy FEW FEW 01/09/2019 [facility] Capillary blood glucose measurement by glucometer (mass/volume) 213 70 - 120 07/27/2018 [facility] Capillary blood glucose measurement by glucometer (mass/volume) 213 70 - 120 07/27/2018 [facility] Serum or plasma cortisol measurement on morning peak specimen (mass/volume) 15.8 6.2 - 19.4 07/26/2018 [facility] Serum or plasma cortisol measurement on morning peak specimen (mass/volume) 15.8 6.2 - 19.4 07/26/2018 [facility] Blood leukocytes automated count (number/volume) 11.30 4.8 - 10.8 07/26/2018 [facility] Hemoglobin A1c Percent 6.8 4.0 - 7.0 07/26/2018 [facility] Serum or plasma magnesium measurement (mass/volume) 2.1 1.3 - 2.1 07/26/2018 [facility] Serum or plasma triglyceride measurement (mass/volume) 114 0 - 149 07/26/2018 [facility] Serum or plasma cholesterol measurement (mass/volume) 103 0 - 199 07/26/2018 [facility] Serum or plasma cholesterol in LDL measurement (mass/volume) 48 60 - 130 07/26/2018 [facility] Serum or plasma cholesterol in HDL measurement (mass/volume) 32 40 - 60 07/26/2018 [facility] Serum or plasma total cholesterol/cholesterol in HDL mass ratio 3.2 3.9 - 4.7 07/26/2018 [facility] Serum or plasma thyrotropin measurement by detection limit <=0.005 miu/l (units/volume) 0.794 0.350 - 4.940 07/26/2018 [facility] Automated blood segmented neutrophil count as percentage of total leukocytes 61.3 38.7 - 80.0 07/26/2018 [facility] Automated blood lymphocyte count as percentage ot total leukocytes 25.0 18.0 - 39.1 07/26/2018 [facility] Automated blood monocyte count as percentage of total leukocytes 9.2 4.4 - 11.3 07/26/2018 [facility] Automated blood eosinophil count as percentage of total leukocytes 2.5 0.0 - 6.0 07/26/2018 [facility] Automated blood basophil count as percentage of total leukocytes 1.0 0.0 - 1.0 07/26/2018 [facility] IM GRANULOCYTES % 1.0 0.0 - 1.0 07/26/2018 [facility] Automated blood neutrophil count 6.9 2.1 - 6.9 07/26/2018 [facility] Blood lymphocytes count (number/volume) 2.8 1.0 - 3.2 07/26/2018 [facility] Blood monocytes automated count (number/volume) 1.0 0.2 - 0.8 07/26/2018 [facility] Automated blood eosinophil count 0.3 0.0 - 0.4 07/26/2018 [facility] Automated blood basophil count (count/volume) 0.1 0.0 - 0.1 07/26/2018 [facility] Absolute Immature Granulocyte (auto 0.11 0 - 0.1 07/26/2018 [facility] Aspartate Amino Transf (AST/SGOT) 21 5 - 34 07/26/2018 [facility] Serum or plasma alanine aminotransferase measurement (enzymatic activity/volume) 30 0 - 55 07/26/2018 [facility] Serum or plasma protein measurement (mass/volume) 7.2 6.5 - 8.1 07/26/2018 [facility] Serum or plasma albumin measurement (mass/volume) 3.1 3.5 - 5.0 07/26/2018 [facility] Plasma globulin measurement (mass/volume) 4.1 2.3 - 3.5 07/26/2018 [facility] Serum or plasma albumin/globulin mass ratio 0.8 0.8 - 2.0 07/26/2018 [facility] Serum or plasma alkaline phosphatase measurement (enzymatic activity/volume) 111 40 - 150 07/26/2018 [facility] Serum or plasma triglyceride measurement (mass/volume) 114 0 - 149 07/26/2018 [facility] Serum or plasma cholesterol measurement (mass/volume) 103 0 - 199 07/26/2018 [facility] Serum or plasma cholesterol in LDL measurement (mass/volume) 48 60 - 130 07/26/2018 [facility] Serum or plasma cholesterol in HDL measurement (mass/volume) 32 40 - 60 07/26/2018 [facility] Hemoglobin A1c Percent 6.8 4.0 - 7.0 07/26/2018 [facility] Serum or plasma magnesium measurement (mass/volume) 2.1 1.3 - 2.1 07/26/2018 [facility] Serum or plasma thyrotropin measurement by detection limit <=0.005 miu/l (units/volume) 0.794 0.350 - 4.940 07/26/2018 [facility] Aspartate Amino Transf (AST/SGOT) 21 5 - 34 07/26/2018 [facility] Serum or plasma alanine aminotransferase measurement (enzymatic activity/volume) 30 0 - 55 07/26/2018 [facility] Serum or plasma protein measurement (mass/volume) 7.2 6.5 - 8.1 07/26/2018 [facility] Serum or plasma albumin measurement (mass/volume) 3.1 3.5 - 5.0 07/26/2018 [facility] Plasma globulin measurement (mass/volume) 4.1 2.3 - 3.5 07/26/2018 [facility] Serum or plasma albumin/globulin mass ratio 0.8 0.8 - 2.0 07/26/2018 [facility] Serum or plasma alkaline phosphatase measurement (enzymatic activity/volume) 111 40 - 150 07/26/2018 [facility] Serum or plasma triglyceride measurement (mass/volume) 114 0 - 149 07/26/2018 [facility] Serum or plasma cholesterol measurement (mass/volume) 103 0 - 199 07/26/2018 [facility] Serum or plasma cholesterol in LDL measurement (mass/volume) 48 60 - 130 07/26/2018 [facility] Serum or plasma cholesterol in HDL measurement (mass/volume) 32 40 - 60 07/26/2018 [facility] Serum or plasma total cholesterol/cholesterol in HDL mass ratio 3.2 3.9 - 4.7 07/26/2018 [facility] Serum or plasma thyrotropin measurement by detection limit <=0.005 miu/l (units/volume) 0.794 0.350 - 4.940 07/26/2018 [facility] Serum or plasma sodium measurement (moles/volume) 137 136 - 145 07/26/2018 [facility] Serum or plasma potassium measurement (moles/volume) 4.1 3.5 - 5.1 07/26/2018 [facility] Serum or plasma chloride measurement (moles/volume) 103 98 - 107 07/26/2018 [facility] Serum or plasma carbon dioxide, total measurement (moles/volume) 25 22 - 29 07/26/2018 [facility] Serum or plasma anion gap 13.1 8 - 16 07/26/2018 [facility] Serum or plasma urea nitrogen measurement (mass/volume) 14 7 - 26 07/26/2018 [facility] Serum or plasma creatinine measurement (mass/volume) 0.80 0.72 - 1.25 07/26/2018 [facility] Serum or plasma urea nitrogen/creatinine mass ratio 18 6 - 25 07/26/2018 [facility] Estimated glomerular filtration rate (GFR) determination > 60 60 07/26/2018 [facility] Glucose measurement 186 74 - 118 07/26/2018 [facility] Serum or plasma calcium measurement (mass/volume) 9.4 8.4 - 10.2 07/26/2018 [facility] Hemoglobin A1c Percent 6.8 4.0 - 7.0 07/26/2018 [facility] Serum or plasma magnesium measurement (mass/volume) 2.1 1.3 - 2.1 07/26/2018 [facility] Serum or plasma total bilirubin measurement (mass/volume) 0.2 0.2 - 1.2 07/26/2018 [facility] Serum or plasma total cholesterol/cholesterol in HDL mass ratio 3.2 3.9 - 4.7 07/26/2018 [facility] Serum or plasma creatine kinase measurement (enzymatic activity/volume) 82 30 - 200 07/25/2018 [facility] Serum or plasma creatine kinase MB measurement (mass/volume) 1.10 0 - 5.0 07/25/2018 [facility] Troponin I measurement by highly sensitive enzyme immunoassay 0.007 0 - 0.300 07/25/2018 [facility] Blood culture NO GROWTH AFTER 5 DAYS, FINAL REPORT 07/25/2018 [facility] Serum or plasma creatine kinase measurement (enzymatic activity/volume) 82 30 - 200 07/25/2018 [facility] Serum or plasma creatine kinase MB measurement (mass/volume) 1.10 0 - 5.0 07/25/2018 [facility] Troponin I measurement by highly sensitive enzyme immunoassay 0.007 0 - 0.300 07/25/2018 [facility] Transitional cells detection in urine sediment by light microscopy MODERATE NONE 07/25/2018 [facility] Urine clarity CLOUDY CLEAR 07/25/2018 [facility] Specific gravity of Urine by Test strip 1.025 1.010 - 1.025 07/25/2018 [facility] Urine pH measurement by automated test strip 6 5 - 7 07/25/2018 [facility] Urine leukocyte esterase detection by dipstick 1+ NEGATIVE 07/25/2018 [facility] Urine nitrite detection POSITIVE NEGATIVE 07/25/2018 [facility] Urine protein measurement by test strip (mass/volume) TRACE NEGATIVE 07/25/2018 [facility] Urine glucose detection NEGATIVE NEGATIVE 07/25/2018 [facility] Urine ketones detection by automated test strip NEGATIVE NEGATIVE 07/25/2018 [facility] Urine urobilinogen measurement by test strip (mass/volume) 0.2 0.2 - 1 07/25/2018 [facility] Urine total bilirubin measurement (mass/volume) NEGATIVE NEGATIVE 07/25/2018 [facility] Urine erythrocytes detection 1+ NEGATIVE 07/25/2018 [facility] Automated urine sediment leukocyte count by microscopy (number/high power field) >50 0 - 5 07/25/2018 [facility] Erythrocytes detection in urine sediment by light microscopy 6-10 0 - 5 07/25/2018 [facility] Bacteria detection in urine sediment by light microscopy MANY NONE 07/25/2018 [facility] Epithelial cells detection in urine sediment by light microscopy FEW NONE 07/25/2018 [facility] Transitional cells detection in urine sediment by light microscopy MODERATE NONE 07/25/2018 [facility] Transitional cells detection in urine sediment by light microscopy MODERATE NONE 07/25/2018 [facility] Lactic Acid Level 18.1 4.5 - 19.8 07/25/2018 [facility] Lactic Acid Level 18.1 4.5 - 19.8 07/25/2018 [facility] ELECTROLYTES POC AGAP 16.0 10.0 - [...] and Spine Bacterial urine culture Urine Culture [facility] Pathology Reports No Data Provided for [...] L2- L3 posterior spinal fusion with spine Mayes pedicle screws segmental instrumentation, allograft local bone [...] atrophy in the lower lumbar spine. 04/02/2018 [facility] Spine lumbar myelogram DX EXAM: SPINE LUMBAR MYELOGRAM DX Date: 04/02/2018 1334 hours PREPROCEDURE DIAGNOSIS: Lower back pain POST PROCEDURE DIAGNOSIS: Same NUCLEAR PHYSICS PROFESSOR: Dahlia Koehler M.D. CLOTH MEASURER MACHINE: Agustin Lombardi M.D ANESTHESIA: Local anesthesia was [...] for injection of intrathecal contrast material. 04/02/2018 [facility] lumbar 2 or 3 views [...] L2-3 appear unchanged with adequate alignment. 11/21/2017 [facility] Spine lumbar single view DX EXAM: XR [...] alignment of L2-L3 posterior fixation hardware. 11/19/2017 [facility] Spine lumbar myelogram CT EXAM: MYELOGRAM LUMBAR [...] compressive effect on the nerve roots. 10/24/2017 [facility] Spine lumbar myelogram DX EXAM: MYELOGRAM LUMBAR [...] compressive effect on the nerve roots. 10/24/2017 [facility] Consultation Notes No Data Provided for This [...] Provider ADM Date DC Date Status Source [facility]- [facility] [id number] 01/17/2013 01/17/2013 [facility]- [facility] [id number] 01/17/2013 01/17/2013 [facility] [employer]- [employer]UE [id number] 01/17/2013 01/17/2013 [facility]- [employer] [id number] 01/17/2013 01/17/2013 [facility]- [employer] [id number] 01/17/2013 01/17/2013 [facility]- [employer] [id number] 01/17/2013 01/17/2013 [facility]- [employer] [id number] 01/17/2013 01/17/2013 [facility] [id number] 01/17/2013 01/17/2013 [facility]- [employer] [id number] 01/17/2013 01/17/2013 [facility] [id number] 01/17/2013 01/17/2013 [facility]- [employer] [id number] 01/17/2013 01/17/2013 [facility] Unknown [id number] 02/10/2013 02/10/2013 [facility] Unknown [id number] 02/10/2013 02/10/2013 [facility] Unknown [id number] 02/10/2013 02/10/2013 [facility] Unknown [id number] 02/10/2013 02/10/2013 [facility] Unknown [id number] 02/10/2013 02/10/2013 [facility] Unknown [id number] 02/10/2013 02/10/2013 [facility] Unknown [id number] 02/10/2013 02/10/2013 [facility] Unknown [id number] 02/10/2013 02/10/2013 [facility] Unknown [id number] 02/10/2013 02/10/2013 [facility] Unknown [id number] 02/10/2013 02/10/2013 [facility] Unknown [id number] 02/10/2013 02/10/2013 [facility] Unknown [id number] 02/10/2013 02/10/2013 [facility] cough [id number] 02/13/2013 02/13/2013 [facility] cough [id number] 02/13/2013 02/13/2013 [facility] cough [id number] 02/13/2013 02/13/2013 [facility] cough [id number] 02/13/2013 02/13/2013 [facility] cough [id number] 02/13/2013 02/13/2013 [facility] cough [id number] 02/13/2013 02/13/2013 [facility] cough [id number] 02/13/2013 02/13/2013 [facility] cough [id number] 02/13/2013 02/13/2013 [facility] cough [id number] 02/13/2013 02/13/2013 [facility] cough [id number] 02/13/2013 02/13/2013 [facility] cough [id number] 02/13/2013 02/13/2013 [facility] Unknown [id number] 05/09/2013 05/09/2013 [facility] Unknown [id number] 05/09/2013 05/09/2013 [facility] Unknown [id number] 05/09/2013 05/09/2013 [facility] Unknown [id number] 05/09/2013 05/09/2013 [facility] Unknown [id number] 05/09/2013 05/09/2013 [facility] Unknown [id number] 05/09/2013 05/09/2013 [facility] Unknown [id number] 05/09/2013 05/09/2013 [facility] Unknown [id number] 05/09/2013 05/09/2013 [facility] Unknown [id number] 05/09/2013 05/09/2013 [facility] [employer] [id number] 06/17/2013 06/17/2013 [facility] [id number] 06/17/2013 06/17/2013 [facility] [id number] 06/17/2013 06/17/2013 [facility] [id number] 06/17/2013 06/17/2013 [facility] [id number] 06/17/2013 06/17/2013 [facility] [id number] 06/17/2013 06/17/2013 [facility] [id number] 06/17/2013 06/17/2013 [facility] Unknown [id number] 06/18/2013 06/18/2013 [facility] Unknown [id number] 06/18/2013 06/18/2013 [facility] Unknown [id number] 06/18/2013 06/18/2013 [facility] Unknown [id number] 06/18/2013 06/18/2013 [facility] Unknown [id number] 06/18/2013 06/18/2013 [facility] Unknown [id number] 06/18/2013 06/18/2013 [facility] Unknown [id number] 06/18/2013 06/18/2013 [facility] Unknown [id number] 06/18/2013 06/18/2013 [facility] sick [id number] 06/23/2013 06/23/2013 [facility] sick [id number] 06/23/2013 06/23/2013 [facility] sick [id number] 06/23/2013 06/23/2013 [facility] sick [id number] 06/23/2013 06/23/2013 [facility] sick [id number] 06/23/2013 06/23/2013 [facility] sick [id number] 06/23/2013 06/23/2013 [facility] sick [id number] 06/23/2013 06/23/2013 [facility] sick [id number] 06/26/2013 06/26/2013 [facility] sick [id number] 06/26/2013 06/26/2013 [facility] sick [id number] 06/26/2013 06/26/2013 [facility] sick [id number] 06/26/2013 06/26/2013 [facility] sick [id number] 06/26/2013 06/26/2013 [facility] fell on ribs [id number] 09/23/2013 09/23/2013 [facility] fell on ribs [id number] 09/23/2013 09/23/2013 [facility] fell on ribs [id number] 09/23/2013 09/23/2013 [facility] fell on ribs [id number] 09/23/2013 09/23/2013 [facility] Unknown [id number] 11/12/2013 11/12/2013 [facility] Unknown [id number] 11/12/2013 11/12/2013 [facility] Unknown [id number] 11/12/2013 11/12/2013 [facility] REFILL [id number] 11/25/2013 11/25/2013 [facility] REFILL [id number] 11/25/2013 11/25/2013 [facility] REFILL [id number] 11/25/2013 11/25/2013 [facility] Unknown [id number] 01/12/2014 01/12/2014 [facility] Outpatient [id number] [facility] 10/24/2017 10/25/2017 [facility] Inpatient [id number] [facility] 11/19/2017 11/22/2017 [facility] PreReg [id number] [facility] 02/07/2018 02/07/2018 [facility] Outpatient [id number] [facility] 04/02/2018 04/03/2018 [facility] Discharged Inpatient [id number] JOHANNA CHRISTINE MD 07/25/2018 07/27/2018 [facility] Departed Emergency Room [id number] [id number] CHOI MD 01/09/2019 01/09/2019 [facility] Discharged Inpatient [id number] INEZ OLVERA MD 01/22/2019 02/01/2019 [facility] Procedures Procedure Code Date Perfomer Comments Source SENIOR PRODUCTION MANAGER shunt [id number] 01/30/2019 [facility] Magnetic resonance imaging of brain without contrast [id number] 01/27/2019 [facility] Computed tomography of abdomen and pelvis with contrast [id number] 01/22/2019 [facility] Computed tomography of brain without radiopaque contrast [id number] 07/25/2018 [facility] Computed tomography of cervical spine without contrast [id number] 07/25/2018 [facility] Myelography via lumbar injection, including radiological supervision and interpretation; lumbosacral [id number] 04/02/2018 [facility] Spinal fusion [id number] 11/19/2017 [facility] Exploratory lumbar laminectomy [id number] 06/18/1984 [facility] Cataract extraction and insertion of intraocular lens [id number] [facility] Lumbar spinal fusion [id number] [facility] Rotator cuff repair [id number] [facility] Assessment and Plan Assessment [...] fusion. 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 [facility] Hospitalist Consult Please [id number] any questions 11/22/2017 [facility] Plan of Care Plan of Care Date Source Discharge Date 02/01/19 2:54pm Disposition TRANSFER [facility] Prescriptions See Medication Section 02/01/2019 [facility] Discharge Date 01/09/19 10:32pm Disposition HOME, SELF-CARE Condition at Discharge Stable Instructions/Education Provided Rehman Catheter Care Urinary Tract Infection - Men Forms Provided Work/School Excuse Prescriptions See Medication Section Referrals ADOLFO GERMAIN MD Order Date: Call for an appointment Address: [facility] [place] [address] Additional Instructions/Education - You have a UTI and penile pain secondary to rehman catheter - Take medications as prescribed - Follow up with Urologist 01/09/2019 [facility] Discharge Date 07/27/18 5:36pm Disposition HOME, SELF-CARE Instructions/Education Provided Pyelonephritis Prescriptions See Medication Section Referrals ALEENA FRANCIS MD (Endocrinology) Entered Date: 07/27/2018 4:48pm Address: [address] [place] [address] , [address] [place] [address] Additional Instructions/Education RESUME DIET AND ACTIVITIES DIRECTED. FOLLOW UP WITH YOUR PRIMARY CARE PROVIDER DIRECTED; FOLLOW UP WITH DR. FRANCIS IN 1-2 WEEKS. 07/27/2018 [facility] Social History Social History Date Source No social history information available. 02/01/2019 [facility] Social History TypeResponse Exercise 1 Alcohol Past Smoking Status Never smoker; Exposure to Tobacco Smoke None; Cigarette Smoking Last 365 Days No; Reg Smoking Cessation Counseling No entered on: 11/19/17 1Denies sob on exertion 11/06/2017 [facility] Social History ElementQualifiersDate Reported Ethnicity . 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 No 07/25/18 6:47am Do you have a Directive to Physician? No 01/22/19 11:42pm Do you have a Medical Power of Data Entry Analyst? No 01/22/19 11:42pm Do you have an [...] rights and responsibilities? Yes 01/22/19 11:42pm 02/01/2019 [facility] Advance Directives Advance Directives Directive Response Recorded Date/Time Does the patient have an advance directive? No 07/25/18 6:47am If yes, is advance directive on file with [facility]? No 07/25/18 6:47am If not on file with [facility] will patient provide a copy? No 07/25/18 6:47am 01/09/2019 [facility] Advance Directives Advance Directives Directive Response Recorded Date/Time Does the patient have an advance directive? No 07/25/18 6:47am If yes, is advance directive on file with [facility]? No 07/25/18 6:47am If not on file with [facility] will patient provide a copy? No 07/25/18 6:47am Do you have a Directive to Physician? No 07/25/18 4:47am Do you have a Medical Power of Data Entry Analyst? No 07/25/18 4:47am Do you have an [...] rights and responsibilities? Yes 07/25/18 4:47am 07/27/2018 [facility] Functional Status No Data Provided for This Section
== END 2019-03-03 13:30 | disposition home or self-care (01) ==
LOC: ER 13:15
DX: Z46.6 Encounter for fitting and adjustment of urinary device (principal); I10 Essential (primary) hypertension; E11.42 Type 2 diabetes mellitus with diabetic polyneuropathy; I25.10 Atherosclerotic heart disease of native coronary artery without angina pectoris; Z86.73 Personal history of transient ischemic attack (TIA), and cerebral infarction without residual deficits
CPT/HCPCS: 99282

== ENCOUNTER 2019-03-16 00:51 | Emergency (ER) | payer MEDICARE ==
[~2019-03-16] VITALS: Ht 177.8 cm; Wt 93.4 kg
--- OUTSIDE RECORDS SUMMARY | 2019-03-16 00:54 | XMS REPORT | Clinical Summary ---
Author Author [facility] Organization [facility] Address Unknown Phone Unavailable Care Team Providers Care Spa Technician Name Role Phone Jeremy Olivo MD PCP [...] guaiFENesin (MUCINEX) 600 Take 1 tablet 0 02/13/ mg tablet extended (600 mg 8 release [...] (Primary Dx) 12/03/2018 Transcribe Access Orders after 03/15/2018 Family History Medical History Relation Name Comments [...] AM CDT region, with neurogenic claudication after 03/15/2018 Results * MRI Lumbar Spine Wo Contrast [...] possible left L4-L5 subarticular zone disc protrusion. [id number] Procedure Note Hm Interface, Radiology Results Incoming [...] possible left L4-L5 subarticular zone disc protrusion. [id number] Performing Organization Address City/State/Zipcode Phone Number [facility] [address] [facility] 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
--- OUTSIDE RECORDS SUMMARY | 2019-03-16 00:55 | XMS REPORT | Continuity of Care Document ---
Author Author [employer] Organization [employer] Address Unknown Phone Unavailable Care Team Providers Care Sales Promotion Representative Name Role Phone [employer] Unavailable Unavailable Problems Problem Status Onset Date Classification Date Reported Comments Source M48.062 Active 01/14/2019 [facility] Sacrococcygeal disorders, not elsewhere classified 04/19/2018 10/20/2018 [facility] M48.061, M43.16 Active 03/31/2018 [facility] M48.061, M43.16 BACK PAIN Active 03/31/2018 [facility] M48.061, M43.16 LOW BACK PAIN Active 01/29/2018 [facility] STENOSIS Active 10/31/2017 [facility] M43.16, M48.061 Active 10/16/2017 [facility] MRSA culture positive(Confirmed)2 Active 06/18/2007 Problem 10/20/2018 [facility] Tachycardia Active Diagnosis 06/25/2013 [facility] Asthma1 Active [...] [facility] Sepsis Active Problem 02/01/2019 [facility] Urinary tract infection Active Problem 02/01/2019 [facility] SPONDYLOLISTHESIS, LUMBAR REGION Active [facility] SPINAL STENOSIS, LUMBAR REGION WITHOUT N Active [facility] SPINAL STENOSIS, LUMBAR REGION WITH NEUR Active [facility] Medications Medication Details Route Status Patient Instructions Ordering Provider Order Date Source Atorvastatin Calcium 20 Mg Tablet, 20 Mg Oral Bedtime Active 01/23/2019 [facility] Docusate Sodium 100 Mg Capsule, 100 Mg Oral Daily Active 01/23/2019 [facility] Morphine Sulfate (Morphine Sulfate Er) 30 Mg Tablet.er, 15 Mg Oral Every 12 Hours as needed for Pain Active 01/23/2019 [facility] Ramipril 5 Mg Capsule, 5 Mg Oral Daily Active 01/23/2019 [facility] Insulin Regular, Human (Humulin R) 100 Unit/1 Ml Vial Before Meals Active Lesley 07/27/2018 [facility] Nph, Human Insulin Isophane (Novolin N) 100 Unit/1 Ml Vial Twice A Day Active Lesley 07/27/2018 [facility] Tetracycline Hcl 500 Mg Capsule Twice A Day Active Lesley 07/27/2018 [facility] Insulin Regular, Human (Humulin R) 100 Unit/1 Ml Vial, 25 Unit Sub-Q Before Meals Active 07/27/2018 [facility] Nph, Human Insulin Isophane (Novolin N) 100 Unit/1 Ml Vial, 25 Unit Sub-Q Twice A Day Active 07/27/2018 [facility] Tetracycline Hcl 500 Mg Capsule, 500 Mg Oral Twice A Day Active Lesley 07/27/2018 [facility] Duloxetine Hcl (Cymbalta) 30 Mg Capsule.dr, 60 Mg Oral Daily Active 07/25/2018 [facility] Losartan Potassium 25 Mg Tablet, 25 Mg Peg Tube Daily Active 07/25/2018 [facility] tizanidine 4 MG Oral Capsule [Zanaflex] 4 mg=1 cap, PO, TID, # 40 cap, 0 Refill(s) Active 11/21/2017 [facility] Acetaminophen 325 MG / Hydrocodone Bitartrate 10 MG Oral Tablet [Cyclone 10/325] 1-2 tab, PO, Q4-6H, PRN Pain, [...] Longer Active 11/20/2017 [facility] sennosides, [facility] 8.6 mg, 1 tab, Route: PO, Drug [...] units) WASTE: F/P - Black; E - [employer] Trash Bin Stable for 28 days at [...] mL, Route: IV, Initial Loading Dose: 0.4mg, MDS COORDINATOR Dose: 0.3 mg, MDS COORDINATOR Lockout: 15 minutes, Continuous Basal Rate: 0 mg, 4 Hour Limit (In MG): 7, Drug Form: INJ, Continuous, Start date: 11/19/17 11 :20:00 CDT, Duration: 30 day, Stop date: 12/19/17...Notes: (Same as: Dilaudid) conc=0.5 mg/ml Hydromorphone MDS COORDINATOR Dose: ;Delay: ;Basal: No Longer Active 11/19/2017 [...] day, Stop date: 12/19/17 11:19:00 CDT, 2.31, [id number]: PREMIX IV - Do Not Alter WASTE: [...] not exceed 4gm/day of acetaminophen. (Same as: Cyclone 325/10) No Longer Active 11/19/2017 [facility] [...] 11:19:00 CDTNotes: (aluminum hydroxide-mag nesium hyd- simethicone [phone]/5ml 30 ml ud GEO) No Longer Active [...] Orally every 6 hrs prn rib pain [facility] 09/23/2013 [facility] Ipratropium Gilbert as directed Inhalation Active 0.02 % Inhalation every 4 hours [facility] 06/26/2013 [facility] Norel CS 1 teaspoon Orally Active 10-4-12.5 MG/5ML Orally three times a day (tid) [facility] 06/26/2013 [facility] ProAir HFA 2 puffs as needed Inhalation Active 108 (90 Base) MCG/ACT Inhalation every 4 -6 hrs [facility] 06/23/2013 [facility] Zithromax Z-Landry 2 tablets on the first day, then 1 tablet daily for 4 days Orally Active 250 MG Orally Once a day [facility] 06/23/2013 [facility] Bystolic 1 tablet Orally Active 10 mg Orally Once a day [facility] 06/17/2013 [facility] Cymbalta 1 capsule Orally Active 60 MG Orally Once a day (patient needs to be seen before next refill) [facility] 05/09/2013 [facility] Cymbalta 1 capsule Orally No Longer Active 30 mg Orally Once a day [place] 02/13/2013 [facility] Tramadol HCl 1 tablet as needed Orally Active 50 mg Orally every 6 hrs [place] 02/13/2013 [facility] Cymbalta 1 capsule Orally Active 60 MG Orally Once a day [place] 02/13/2013 [facility] Amlodipine Besylate 1 tablet Orally Active 10 mg Orally Once a day [facility] 02/13/2013 [facility] Novolin N 23 units Subcutaneous Active 100 UNIT/ML Subcutaneous AM and PM [facility] Metformin HCl 2 tablet Orally Active 500 mg Orally Twice a day [facility] Simvastatin 1 tablet Orally No Longer Active 40 mg Orally Once a day [facility] Novolin R 23 units Injection Active 100 UNIT/ML Injection TID with meals [facility] Lisinopril 1 tablet Orally No Longer Active 10 mg Orally Once a day [facility] Metformin HCl TAKE TWO TABLETS BY MOUTH TWICE DAILY NA Active 500 [facility] Amlodipine Besylate TAKE ONE TABLET BY MOUTH EVERY DAY NA Active 10MG [facility] Aspirin 1 tablet Orally Active 325 MG Orally Once a day [facility] Amlodipine Besylate 10 Mg Tablet Daily Active [facility] Aspirin 81 Mg Tab.chew Daily Active [facility] Atorvastatin Calcium 20 Mg Tablet Bedtime Active [facility] Docusate Sodium 100 Mg Capsule Daily Active [facility] Finasteride 5 Mg Tablet Daily Active [facility] Flecainide Acetate 100 Mg Tablet Twice A Day Active [facility] Gabapentin 400 Mg Capsule Four Times Daily Active [facility] Hydrocodone Bit/Acetaminophen (Cyclone 10-325 Tablet) 1 Each Tablet Every 8 Hours as needed for Pain Active [facility] Metformin Hcl 500 Mg Tablet Twice A Day Active [facility] Morphine Sulfate (Morphine Sulfate Er) 30 Mg Tablet.er Every 12 Hours as needed for Pain Active [facility] Ramipril 5 Mg Capsule Daily Active [facility] Tamsulosin Hcl 0.4 Mg Cap.er.24h Daily Active [facility] Duloxetine Hcl (Cymbalta) 30 Mg Capsule.dr Daily Active [facility] Propranolol Hcl 40 Mg Tablet Twice A Day Active [facility] Sitagliptin Phosphate (Januvia) 100 Mg Tablet Daily Active [facility] Allergies, Adverse Reactions, Alerts Substance Category Reaction Severity Reaction type Status Date Reported Comments Source Carisoprodol Unknown Allergy to Substance Active 07/25/2018 [facility] Lincomycin Unknown Allergy to Substance Active 07/25/2018 [facility] Soma Assertion rash Drug allergy Active [...] glucometer (mass/volume) 147 70 - 120 02/01/2019 [facility] Blood leukocytes automated count (number/volume) 10.60 4.8 - 10.8 01/30/2019 [facility] Blood erythrocytes automated count (number/volume) 4.41 4.3 - 5.7 01/30/2019 [facility] Blood hemoglobin measurement (moles/volume) 13.4 14.0 - 18.0 01/30/2019 [facility] Automated blood hematocrit (volume fraction) 39.7 38.2 - 49.6 01/30/2019 [facility] Automated erythrocyte mean corpuscular volume 90.0 81 - 99 01/30/2019 [facility] Automated erythrocyte mean corpuscular hemoglobin (mass per erythrocyte) 30.4 28 - 32 01/30/2019 [facility] Automated erythrocyte mean corpuscular hemoglobin concentration measurement (mass/volume) 33.8 31 - 35 01/30/2019 [facility] RDW BldCo-Rto 13.4 11.7 - 14.4 01/30/2019 [facility] Automated blood platelet count (count/volume) 287 140 - 360 01/30/2019 [facility] Automated blood segmented neutrophil count as percentage of total leukocytes 63.3 38.7 - 80.0 01/30/2019 [facility] Automated blood lymphocyte count as percentage ot total leukocytes 21.1 18.0 - 39.1 01/30/2019 [facility] Automated blood monocyte count as percentage of total leukocytes 10.4 4.4 - 11.3 01/30/2019 [facility] Automated blood eosinophil count as percentage of total leukocytes 3.2 0.0 - 6.0 01/30/2019 [facility] Automated blood basophil count as percentage of total leukocytes 1.0 0.0 - 1.0 01/30/2019 [facility] IM GRANULOCYTES % 1.0 0.0 - 1.0 01/30/2019 [facility] Automated blood neutrophil count 6.7 2.1 - 6.9 01/30/2019 [facility] Blood lymphocytes count (number/volume) 2.2 1.0 - 3.2 01/30/2019 [facility] Blood monocytes automated count (number/volume) 1.1 0.2 - 0.8 01/30/2019 [facility] Automated blood eosinophil count 0.3 0.0 - 0.4 01/30/2019 [facility] Automated blood basophil count (count/volume) 0.1 0.0 - 0.1 01/30/2019 [facility] Absolute Immature Granulocyte (auto 0.11 0 - 0.1 01/30/2019 [facility] Serum or plasma sodium measurement (moles/volume) 136 136 - 145 01/30/2019 [facility] Serum or plasma potassium measurement (moles/volume) 3.5 3.5 - 5.1 01/30/2019 [facility] Serum or plasma chloride measurement (moles/volume) 102 98 - 107 01/30/2019 [facility] Serum or plasma carbon dioxide, total measurement (moles/volume) 25 22 - 29 01/30/2019 [facility] Serum or plasma anion gap 12.5 8 - 16 01/30/2019 [facility] Serum or plasma urea nitrogen measurement (mass/volume) 12 7 - 26 01/30/2019 [facility] Serum or plasma creatinine measurement (mass/volume) 0.71 0.72 - 1.25 01/30/2019 [facility] Serum or plasma urea nitrogen/creatinine mass ratio 17 6 - 25 01/30/2019 [facility] Estimated glomerular filtration rate (GFR) determination > 60 60 01/30/2019 [facility] Glucose measurement 132 74 - 118 01/30/2019 [facility] Serum or plasma calcium measurement (mass/volume) 8.6 8.4 - 10.2 01/30/2019 [facility] Prothrombin time (PT) in platelet poor plasma by coagulation assay 13.1 11.9 - 14.5 01/29/2019 [facility] INR in Platelet poor plasma by Coagulation assay 0.94 01/29/2019 [facility] Activated partial thromboplastin time (aPTT) in platelet poor plasma bycoagulation assay 32.0 23.8 - 35.5 01/29/2019 [facility] Clostridium difficile A and B toxin assay NEGATIVE NEGATIVE 01/29/2019 [facility] Cerebrospinal fluid appearance description BLOODY CLEAR 01/27/2019 [facility] Cerebrospinal fluid color identification RED COLORLESS 01/27/2019 [facility] Tube # CSF 3 01/27/2019 [facility] Manual cerebrospinal fluid leukocytes count (number/volume) 99 0 - 5 01/27/2019 [facility] Cerebrospinal fluid erythrocytes count (number/volume) 07846 0 - 10 01/27/2019 [facility] Cerebrospinal fluid glucose measurement (mass/volume) 87 40 - 70 01/27/2019 [facility] Cerebrospinal fluid protein measurement (mass/volume) 76.5 15 - 40 01/27/2019 [facility] Differential Total Cells Counted 100 01/24/2019 [facility] Manual blood neutrophils/100 leukocytes 70 40 - 74 01/24/2019 [facility] Manual blood lymphocytes/100 leukocytes 17 19 - 48 01/24/2019 [facility] Manual blood monocytes/100 leukocytes 10 3.4 - 9.0 01/24/2019 [facility] Manual blood eosinophil count as percentage of total leukocytes 3 0 - 7 01/24/2019 [facility] Blood platelets count by estimate (number/volume) ADEQUATE 01/24/2019 [facility] Platelet morphology NORMAL 01/24/2019 [facility] RBC morphology NORMAL 01/24/2019 [facility] Serum or plasma total bilirubin measurement (mass/volume) 0.6 0.2 - 1.2 01/24/2019 [facility] Aspartate Amino Transf (AST/SGOT) 10 5 - 34 01/24/2019 [facility] Serum or plasma alanine aminotransferase measurement (enzymatic activity/volume) 10 0 - 55 01/24/2019 [facility] Serum or plasma protein measurement (mass/volume) 6.6 6.5 - 8.1 01/24/2019 [facility] Serum or plasma albumin measurement (mass/volume) 3.1 3.5 - 5.0 01/24/2019 [facility] Plasma globulin measurement (mass/volume) 3.5 2.3 - 3.5 01/24/2019 [facility] Serum or plasma albumin/globulin mass ratio 0.9 0.8 - 2.0 01/24/2019 [facility] Serum or plasma alkaline phosphatase measurement (enzymatic activity/volume) 88 40 - 150 01/24/2019 [facility] Blood culture NO GROWTH AFTER 5 DAYS, FINAL REPORT 01/23/2019 [facility] Urine color determination YELLOW YELLOW 01/22/2019 [facility] Urine clarity CLOUDY CLEAR 01/22/2019 [facility] Specific gravity of Urine by Test strip >=1.030 1.010 - 1.025 01/22/2019 [facility] Urine pH measurement by automated test strip 6 5 - 7 01/22/2019 [facility] Urine leukocyte esterase detection by automated test strip SMALL NEGATIVE 01/22/2019 [facility] Urine nitrite detection by automated test strip POSITIVE NEGATIVE 01/22/2019 [facility] Urine protein detection by automated test strip 2+ NEGATIVE 01/22/2019 [facility] Urine glucose detection by automated test strip NEGATIVE NEGATIVE 01/22/2019 [facility] Urine ketones detection by automated test strip NEGATIVE NEGATIVE 01/22/2019 [facility] Urine urobilinogen measurement by test strip (mass/volume) 0.2 0.2 - 1 01/22/2019 [facility] Urine total bilirubin detection NEGATIVE NEGATIVE 01/22/2019 [facility] Urine erythrocytes detection MODERATE NEGATIVE 01/22/2019 [facility] Automated urine sediment leukocyte count by microscopy (number/high power field) >50 0 - 5 01/22/2019 [facility] Erythrocytes detection in urine sediment by light microscopy 11-20 0 - 5 01/22/2019 [facility] Bacteria detection in urine sediment by light microscopy MANY NONE 01/22/2019 [facility] Epithelial cells detection in urine sediment by light microscopy FEW NONE 01/22/2019 [facility] Lactic Acid Level 14.9 4.5 - 19.8 01/22/2019 [facility] Serum or plasma creatine kinase measurement (enzymatic activity/volume) 36 30 - 200 01/22/2019 [facility] Serum or plasma creatine kinase MB measurement (mass/volume) 0.60 0 - 5.0 01/22/2019 [facility] Troponin I measurement by highly sensitive enzyme immunoassay 0.001 0 - 0.300 01/22/2019 [facility] Urine color determination YELLOW YELLOW 01/09/2019 [facility] Urine clarity SL CLOUDY CLEAR 01/09/2019 [facility] Specific gravity of Urine by Test strip >=1.030 1.010 - 1.025 01/09/2019 [facility] Urine pH measurement by automated test strip 6 5 - 7 01/09/2019 [facility] Urine leukocyte esterase detection by automated test strip SMALL NEGATIVE 01/09/2019 [facility] Urine nitrite detection by automated test strip NEGATIVE NEGATIVE 01/09/2019 [facility] Urine protein detection by automated test strip 2+ NEGATIVE 01/09/2019 [facility] Urine glucose detection by automated test strip NEGATIVE NEGATIVE 01/09/2019 [facility] Urine ketones detection by automated test strip NEGATIVE NEGATIVE 01/09/2019 [facility] Urine urobilinogen measurement by test strip (mass/volume) 0.2 0.2 - 1 01/09/2019 [facility] Urine total bilirubin detection NEGATIVE NEGATIVE 01/09/2019 [facility] Urine erythrocytes detection 3+ NEGATIVE 01/09/2019 [facility] Automated urine sediment leukocyte count by microscopy (number/high power field) 6-10 0 - 5 01/09/2019 [facility] Erythrocytes detection in urine sediment by light microscopy 21-50 0 - 5 01/09/2019 [facility] Bacteria detection in urine sediment by light microscopy RARE NONE 01/09/2019 [facility] Epithelial cells detection in urine sediment by light microscopy RARE NONE 01/09/2019 [facility] Calcium oxalate crystals detection in urine sediment by light microscopy FEW FEW 01/09/2019 [facility] Calcium oxalate crystals detection in urine sediment by light microscopy FEW FEW 01/09/2019 [facility] Capillary blood glucose measurement by glucometer (mass/volume) 213 70 - 120 07/27/2018 [facility] Capillary blood glucose measurement by glucometer (mass/volume) 213 70 - 120 07/27/2018 [facility] Serum or plasma cortisol measurement on morning peak specimen (mass/volume) 15.8 6.2 - 19.4 07/26/2018 [facility] Serum or plasma cortisol measurement on morning peak specimen (mass/volume) 15.8 6.2 - 19.4 07/26/2018 [facility] Blood leukocytes automated count (number/volume) 11.30 4.8 - 10.8 07/26/2018 [facility] Hemoglobin A1c Percent 6.8 4.0 - 7.0 07/26/2018 [facility] Serum or plasma magnesium measurement (mass/volume) 2.1 1.3 - 2.1 07/26/2018 [facility] Serum or plasma triglyceride measurement (mass/volume) 114 0 - 149 07/26/2018 [facility] Serum or plasma cholesterol measurement (mass/volume) 103 0 - 199 07/26/2018 [facility] Serum or plasma cholesterol in LDL measurement (mass/volume) 48 60 - 130 07/26/2018 [facility] Serum or plasma cholesterol in HDL measurement (mass/volume) 32 40 - 60 07/26/2018 [facility] Serum or plasma total cholesterol/cholesterol in HDL mass ratio 3.2 3.9 - 4.7 07/26/2018 [facility] Serum or plasma thyrotropin measurement by detection limit <=0.005 miu/l (units/volume) 0.794 0.350 - 4.940 07/26/2018 [facility] Automated blood segmented neutrophil count as percentage of total leukocytes 61.3 38.7 - 80.0 07/26/2018 [facility] Automated blood lymphocyte count as percentage ot total leukocytes 25.0 18.0 - 39.1 07/26/2018 [facility] Automated blood monocyte count as percentage of total leukocytes 9.2 4.4 - 11.3 07/26/2018 [facility] Automated blood eosinophil count as percentage of total leukocytes 2.5 0.0 - 6.0 07/26/2018 [facility] Automated blood basophil count as percentage of total leukocytes 1.0 0.0 - 1.0 07/26/2018 [facility] IM GRANULOCYTES % 1.0 0.0 - 1.0 07/26/2018 [facility] Automated blood neutrophil count 6.9 2.1 - 6.9 07/26/2018 [facility] Blood lymphocytes count (number/volume) 2.8 1.0 - 3.2 07/26/2018 [facility] Blood monocytes automated count (number/volume) 1.0 0.2 - 0.8 07/26/2018 [facility] Automated blood eosinophil count 0.3 0.0 - 0.4 07/26/2018 [facility] Automated blood basophil count (count/volume) 0.1 0.0 - 0.1 07/26/2018 [facility] Absolute Immature Granulocyte (auto 0.11 0 - 0.1 07/26/2018 [facility] Aspartate Amino Transf (AST/SGOT) 21 5 - 34 07/26/2018 [facility] Serum or plasma alanine aminotransferase measurement (enzymatic activity/volume) 30 0 - 55 07/26/2018 [facility] Serum or plasma protein measurement (mass/volume) 7.2 6.5 - 8.1 07/26/2018 [facility] Serum or plasma albumin measurement (mass/volume) 3.1 3.5 - 5.0 07/26/2018 [facility] Plasma globulin measurement (mass/volume) 4.1 2.3 - 3.5 07/26/2018 [facility] Serum or plasma albumin/globulin mass ratio 0.8 0.8 - 2.0 07/26/2018 [facility] Serum or plasma alkaline phosphatase measurement (enzymatic activity/volume) 111 40 - 150 07/26/2018 [facility] Serum or plasma triglyceride measurement (mass/volume) 114 0 - 149 07/26/2018 [facility] Serum or plasma cholesterol measurement (mass/volume) 103 0 - 199 07/26/2018 [facility] Serum or plasma cholesterol in LDL measurement (mass/volume) 48 60 - 130 07/26/2018 [facility] Serum or plasma cholesterol in HDL measurement (mass/volume) 32 40 - 60 07/26/2018 [facility] Hemoglobin A1c Percent 6.8 4.0 - 7.0 07/26/2018 [facility] Serum or plasma magnesium measurement (mass/volume) 2.1 1.3 - 2.1 07/26/2018 [facility] Serum or plasma thyrotropin measurement by detection limit <=0.005 miu/l (units/volume) 0.794 0.350 - 4.940 07/26/2018 [facility] Aspartate Amino Transf (AST/SGOT) 21 5 - 34 07/26/2018 [facility] Serum or plasma alanine aminotransferase measurement (enzymatic activity/volume) 30 0 - 55 07/26/2018 [facility] Serum or plasma protein measurement (mass/volume) 7.2 6.5 - 8.1 07/26/2018 [facility] Serum or plasma albumin measurement (mass/volume) 3.1 3.5 - 5.0 07/26/2018 [facility] Plasma globulin measurement (mass/volume) 4.1 2.3 - 3.5 07/26/2018 [facility] Serum or plasma albumin/globulin mass ratio 0.8 0.8 - 2.0 07/26/2018 [facility] Serum or plasma alkaline phosphatase measurement (enzymatic activity/volume) 111 40 - 150 07/26/2018 [facility] Serum or plasma triglyceride measurement (mass/volume) 114 0 - 149 07/26/2018 [facility] Serum or plasma cholesterol measurement (mass/volume) 103 0 - 199 07/26/2018 [facility] Serum or plasma cholesterol in LDL measurement (mass/volume) 48 60 - 130 07/26/2018 [facility] Serum or plasma cholesterol in HDL measurement (mass/volume) 32 40 - 60 07/26/2018 [facility] Serum or plasma total cholesterol/cholesterol in HDL mass ratio 3.2 3.9 - 4.7 07/26/2018 [facility] Serum or plasma thyrotropin measurement by detection limit <=0.005 miu/l (units/volume) 0.794 0.350 - 4.940 07/26/2018 [facility] Serum or plasma sodium measurement (moles/volume) 137 136 - 145 07/26/2018 [facility] Serum or plasma potassium measurement (moles/volume) 4.1 3.5 - 5.1 07/26/2018 [facility] Serum or plasma chloride measurement (moles/volume) 103 98 - 107 07/26/2018 [facility] Serum or plasma carbon dioxide, total measurement (moles/volume) 25 22 - 29 07/26/2018 [facility] Serum or plasma anion gap 13.1 8 - 16 07/26/2018 [facility] Serum or plasma urea nitrogen measurement (mass/volume) 14 7 - 26 07/26/2018 [facility] Serum or plasma creatinine measurement (mass/volume) 0.80 0.72 - 1.25 07/26/2018 [facility] Serum or plasma urea nitrogen/creatinine mass ratio 18 6 - 25 07/26/2018 [facility] Estimated glomerular filtration rate (GFR) determination > 60 60 07/26/2018 [facility] Glucose measurement 186 74 - 118 07/26/2018 [facility] Serum or plasma calcium measurement (mass/volume) 9.4 8.4 - 10.2 07/26/2018 [facility] Hemoglobin A1c Percent 6.8 4.0 - 7.0 07/26/2018 [facility] Serum or plasma magnesium measurement (mass/volume) 2.1 1.3 - 2.1 07/26/2018 [facility] Serum or plasma total bilirubin measurement (mass/volume) 0.2 0.2 - 1.2 07/26/2018 [facility] Serum or plasma total cholesterol/cholesterol in HDL mass ratio 3.2 3.9 - 4.7 07/26/2018 [facility] Serum or plasma creatine kinase measurement (enzymatic activity/volume) 82 30 - 200 07/25/2018 [facility] Serum or plasma creatine kinase MB measurement (mass/volume) 1.10 0 - 5.0 07/25/2018 [facility] Troponin I measurement by highly sensitive enzyme immunoassay 0.007 0 - 0.300 07/25/2018 [facility] Blood culture NO GROWTH AFTER 5 DAYS, FINAL REPORT 07/25/2018 [facility] Serum or plasma creatine kinase measurement (enzymatic activity/volume) 82 30 - 200 07/25/2018 [facility] Serum or plasma creatine kinase MB measurement (mass/volume) 1.10 0 - 5.0 07/25/2018 [facility] Troponin I measurement by highly sensitive enzyme immunoassay 0.007 0 - 0.300 07/25/2018 [facility] Transitional cells detection in urine sediment by light microscopy MODERATE NONE 07/25/2018 [facility] Urine clarity CLOUDY CLEAR 07/25/2018 [facility] Specific gravity of Urine by Test strip 1.025 1.010 - 1.025 07/25/2018 [facility] Urine pH measurement by automated test strip 6 5 - 7 07/25/2018 [facility] Urine leukocyte esterase detection by dipstick 1+ NEGATIVE 07/25/2018 [facility] Urine nitrite detection POSITIVE NEGATIVE 07/25/2018 [facility] Urine protein measurement by test strip (mass/volume) TRACE NEGATIVE 07/25/2018 [facility] Urine glucose detection NEGATIVE NEGATIVE 07/25/2018 [facility] Urine ketones detection by automated test strip NEGATIVE NEGATIVE 07/25/2018 [facility] Urine urobilinogen measurement by test strip (mass/volume) 0.2 0.2 - 1 07/25/2018 [facility] Urine total bilirubin measurement (mass/volume) NEGATIVE NEGATIVE 07/25/2018 [facility] Urine erythrocytes detection 1+ NEGATIVE 07/25/2018 [facility] Automated urine sediment leukocyte count by microscopy (number/high power field) >50 0 - 5 07/25/2018 [facility] Erythrocytes detection in urine sediment by light microscopy 6-10 0 - 5 07/25/2018 [facility] Bacteria detection in urine sediment by light microscopy MANY NONE 07/25/2018 [facility] Epithelial cells detection in urine sediment by light microscopy FEW NONE 07/25/2018 [facility] Transitional cells detection in urine sediment by light microscopy MODERATE NONE 07/25/2018 [facility] Transitional cells detection in urine sediment by light microscopy MODERATE NONE 07/25/2018 [facility] Lactic Acid Level 18.1 4.5 - 19.8 07/25/2018 [facility] Lactic Acid Level 18.1 4.5 - 19.8 07/25/2018 [facility] ELECTROLYTES POC AGAP 16.0 10.0 - [...] and Spine Bacterial urine culture Urine Culture [facility] Pathology Reports No Data Provided for [...] L2- L3 posterior spinal fusion with spine [place] pedicle screws segmental instrumentation, allograft local bone [...] atrophy in the lower lumbar spine. 04/02/2018 [facility] Spine lumbar myelogram DX EXAM: SPINE LUMBAR MYELOGRAM DX Date: 04/02/2018 1334 hours PREPROCEDURE DIAGNOSIS: Lower back pain POST PROCEDURE DIAGNOSIS: Same WARP HAND: Dahlia Koehler M.D. RIP AND GROOVE MACHINE OPERATOR: Agustin Lombardi M.D ANESTHESIA: Local anesthesia was [...] for injection of intrathecal contrast material. 04/02/2018 [facility] lumbar 2 or 3 views DX EXAM: [...] L2-3 appear unchanged with adequate alignment. 11/21/2017 [facility] Spine lumbar single view DX EXAM: XR [...] alignment of L2-L3 posterior fixation hardware. 11/19/2017 [facility] lumbar myelogram CT EXAM: MYELOGRAM LUMBAR [...] compressive effect on the nerve roots. 10/24/2017 [facility] Sp[facility] lumbar myelogram DX EXAM: MYELOGRAM LUMBAR [...] compressive effect on the nerve roots. 10/24/2017 [facility] Consultation Notes No Data Provided for This [...] Provider ADM Date DC Date Status Source [facility] BOX FABRICATOR- FATIGUE [id number] 01/17/2013 01/17/2013 [facility] BOX FABRICATOR- FATIGUE [id number] 01/17/2013 01/17/2013 [facility] BOX FABRICATOR- FATIGUE [id number] 01/17/2013 01/17/2013 [facility] BOX FABRICATOR- FATIGUE [id number] 01/17/2013 01/17/2013 [facility] BOX FABRICATOR- FATIGUE [id number] 01/17/2013 01/17/2013 [facility] BOX FABRICATOR- FATIGUE [id number] 01/17/2013 01/17/2013 [facility] BOX FABRICATOR- FATIGUE [id number] 01/17/2013 01/17/2013 [facility] BOX FABRICATOR- FATIGUE [id number] 01/17/2013 01/17/2013 [facility] BOX FABRICATOR- FATIGUE [id number] 01/17/2013 01/17/2013 [facility] BOX FABRICATOR- FATIGUE [id number] 01/17/2013 01/17/2013 [facility] BOX FABRICATOR- FATIGUE [id number] 01/17/2013 01/17/2013 [facility] Unknown [id number] 02/10/2013 02/10/2013 [facility] Unknown [id number] 02/10/2013 02/10/2013 [facility] Unknown [id number] 02/10/2013 02/10/2013 [facility] Unknown [id number] 02/10/2013 02/10/2013 [facility] Unknown [id number] 02/10/2013 02/10/2013 [facility] Unknown [id number] 02/10/2013 02/10/2013 [facility] Unknown [id number] 02/10/2013 02/10/2013 [facility] Unknown [id number] 02/10/2013 02/10/2013 [facility] Unknown [id number] 02/10/2013 02/10/2013 [facility] Unknown [id number] 02/10/2013 02/10/2013 [facility] Unknown [id number] 02/10/2013 02/10/2013 [facility] Unknown [id number] 02/10/2013 02/10/2013 [facility] cough [id number] 02/13/2013 02/13/2013 [facility] cough [id number] 02/13/2013 02/13/2013 [facility] cough [id number] 02/13/2013 02/13/2013 [facility] cough [id number] 02/13/2013 02/13/2013 [facility] cough [id number] 02/13/2013 02/13/2013 [facility] cough [id number] 02/13/2013 02/13/2013 [facility] cough [id number] 02/13/2013 02/13/2013 [facility] cough [id number] 02/13/2013 02/13/2013 [facility] cough [id number] 02/13/2013 02/13/2013 [facility] cough [id number] 02/13/2013 02/13/2013 [facility] cough [id number] 02/13/2013 02/13/2013 [facility] Unknown [id number] 05/09/2013 05/09/2013 [facility] Unknown [id number] 05/09/2013 05/09/2013 [facility] Unknown [id number] 05/09/2013 05/09/2013 [facility] Unknown [id number] 05/09/2013 05/09/2013 [facility] Unknown [id number] 05/09/2013 05/09/2013 [facility] Unknown [id number] 05/09/2013 05/09/2013 [facility] Unknown [id number] 05/09/2013 05/09/2013 [facility] Unknown [id number] 05/09/2013 05/09/2013 [facility] Unknown [id number] 05/09/2013 05/09/2013 [facility] [employer] [id number] 06/17/2013 06/17/2013 [facility] [employer] [id number] 06/17/2013 06/17/2013 [facility] [employer] [id number] 06/17/2013 06/17/2013 [facility] [employer] [id number] 06/17/2013 06/17/2013 [facility] [employer] [id number] 06/17/2013 06/17/2013 [facility] [employer] [id number] 06/17/2013 06/17/2013 [facility] racing [id number] 06/17/2013 06/17/2013 [facility] Unknown [id number] 06/18/2013 06/18/2013 [facility] Unknown [id number] 06/18/2013 06/18/2013 [facility] Unknown [id number] 06/18/2013 06/18/2013 [facility] Unknown [id number] 06/18/2013 06/18/2013 [facility] Unknown [id number] 06/18/2013 06/18/2013 [facility] Unknown [id number] 06/18/2013 06/18/2013 [facility] Unknown [id number] 06/18/2013 06/18/2013 [facility] Unknown [id number] 06/18/2013 06/18/2013 [facility] sick [id number] 06/23/2013 06/23/2013 [facility] sick [id number] 06/23/2013 06/23/2013 [facility] sick [id number] 06/23/2013 06/23/2013 [facility] sick [id number] 06/23/2013 06/23/2013 [facility] sick [id number] 06/23/2013 06/23/2013 [facility] sick [id number] 06/23/2013 06/23/2013 [facility] sick [id number] 06/23/2013 06/23/2013 [facility] sick [id number] 06/26/2013 06/26/2013 [facility] sick [id number] 06/26/2013 06/26/2013 [facility] sick [id number] 06/26/2013 06/26/2013 [facility] sick [id number] 06/26/2013 06/26/2013 [facility] sick [id number] 06/26/2013 06/26/2013 [facility] fell on ribs [id number] 09/23/2013 09/23/2013 [facility] fell on ribs [id number] 09/23/2013 09/23/2013 [facility] fell on ribs [id number] 09/23/2013 09/23/2013 [facility] fell on ribs [id number] 09/23/2013 09/23/2013 [facility] Unknown [id number] 11/12/2013 11/12/2013 [facility] Unknown [id number] 11/12/2013 11/12/2013 [facility] Unknown [id number] 11/12/2013 11/12/2013 [facility] REFILL [id number] 11/25/2013 11/25/2013 [facility] REFILL [id number] 11/25/2013 11/25/2013 [facility] REFILL [id number] 11/25/2013 11/25/2013 [facility] Unknown [id number] 01/12/2014 01/12/2014 [facility] Outpatient [id number] [facility] 10/24/2017 10/25/2017 [facility] Inpatient [id number] [facility] 11/19/2017 11/22/2017 [facility] PreReg [id number] [facility] 02/07/2018 02/07/2018 [facility] Outpatient [id number] [facility] 04/02/2018 04/03/2018 [facility] Discharged Inpatient [id number] JOHANNA CHRISTINE MD 07/25/2018 07/27/2018 [facility] Departed Emergency Room [id number] [id number] CHOI MD 01/09/2019 01/09/2019 [facility] Discharged Inpatient [id number] INEZ OLVERA MD 01/22/2019 02/01/2019 [facility] Procedures Procedure Code Date Perfomer Comments Source [employer] TE[employer] shunt [id number] 01/30/2019 [facility] Magnetic resonance imaging of brain without contrast [id number] 01/27/2019 [facility] Computed tomography of abdomen and pelvis with contrast [id number] 01/22/2019 [facility] Computed tomography of brain without radiopaque contrast [id number] 07/25/2018 [facility] Computed tomography of cervical spine without contrast [id number] 07/25/2018 [facility] Myelography via lumbar injection, including radiological supervision and interpretation; lumbosacral [id number] 04/02/2018 [facility] Spinal fusion [id number] 11/19/2017 [facility] Exploratory lumbar laminectomy [id number] 06/18/1984 [facility] Cataract extraction and insertion of intraocular lens [id number] [facility] Lumbar spinal fusion 04193823 [facility] Rotator cuff repair [id number] [facility] Assessment and Plan Assessment [...] fusion. 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 [facility] Hospitalist Consult Please [email or web address] any questions 11/22/2017 [facility] Plan of Care Plan of Care Date Source Discharge Date 02/01/19 2:54pm Disposition TRANSFER [facility] Prescriptions See Medication Section 02/01/2019 [facility] Discharge Date 01/09/19 10:32pm Disposition HOME, SELF-CARE Condition at Discharge Stable Instructions/Education Provided Rehman Catheter Care Urinary Tract Infection - Men Forms Provided Work/School Excuse Prescriptions See Medication Section Referrals ADOLFO GERMAIN MD Order Date: Call for an appointment Address: [facility] [place] [address] Additional Instructions/Education - You have a UTI and penile pain secondary to rehman catheter - Take medications as prescribed - Follow up with Urologist 01/09/2019 [facility] Discharge Date 07/27/18 5:36pm Disposition HOME, SELF-CARE Instructions/Education Provided Pyelonephritis Prescriptions See Medication Section Referrals ALEENA FRANCIS MD (Endocrinology) Entered Date: 07/27/2018 4:48pm Address: [address] [place] [address] , [address] [place] [address] Additional Instructions/Education RESUME DIET AND ACTIVITIES DIRECTED. FOLLOW UP WITH YOUR PRIMARY CARE PROVIDER DIRECTED; FOLLOW UP WITH DR. FRANCIS IN 1-2 WEEKS. 07/27/2018 [facility] Social History Social History Date Source No social history information available. 02/01/2019 [facility] Social History TypeResponse Exercise 1 Alcohol Past Smoking Status Never smoker; Exposure to Tobacco Smoke None; Cigarette Smoking Last 365 Days No; Reg Smoking Cessation Counseling No entered on: 11/19/17 1Denies sob on exertion 11/06/2017 Ortho and Spine Social History ElementQualifiersDate Reported Ethnicity . Status , Is sami your primary language? Yes September 23, 2013 [...] Status: No September 23, 2013 Occupation: employed. [employer] at [facility] [employer] [employer] September 23, 2013 09/23/2013 [employer] [...] yes, is advance directive on file with [facility]? No 07/25/18 6:47am If not on file with [facility] will patient provide a copy? No 07/25/18 6:47am Do you have a Directive to Physician? No 01/22/19 11:42pm Do you have a Medical Power of Precision Machining Instructor? No 01/22/19 11:42pm Do you have an [...] rights and responsibilities? Yes 01/22/19 11:42pm 02/01/2019 [facility] Advance Directives Advance Directives Directive Response Recorded Date/Time Does the patient have an advance directive? No 07/25/18 6:47am If yes, is advance directive on file with [facility]? No 07/25/18 6:47am If not on file with [facility] will patient provide a copy? No 07/25/18 6:47am 01/09/2019 [facility] Advance Directives Advance Directives Directive Response Recorded Date/Time Does the patient have an advance directive? No 07/25/18 6:47am If yes, is advance directive on file with [facility]? No 07/25/18 6:47am If not on file with [facility] will patient provide a copy? No 07/25/18 6:47am Do you have a Directive to Physician? No 07/25/18 4:47am Do you have a Medical Power of Precision Machining Instructor? No 07/25/18 4:47am Do you have an [...] rights and responsibilities? Yes 07/25/18 4:47am 07/27/2018 [facility] Functional Status No Data Provided for This Section
[2019-03-16 03:21] LABS: BILIRUBIN,URINE SMALL (NEGATIVE); CLARITY,URINE SL CLOUDY (CLEAR); COLOR,URINE YELLOW (YELLOW); KETONES,URINE NEGATIVE (NEGATIVE); LEUKOCYTE ESTERASE ,URINE TRACE (NEGATIVE); NITRITE,URINE POSITIVE (NEGATIVE); PROTEIN,URINE DIPSTICK 2+ (NEGATIVE); URINE UROBILINOGEN 0.2 mg/dL (0.2 - 1)
[2019-03-16 03:51] LABS: BACTERIA,URINE MANY /HPF; EPITHELIAL CELLS,URINE MANY /LPF; RBC,URINE 21-50 /HPF (0-5); WBC,URINE (MAN) >50 /HPF (0-5)
[2019-03-16] MEDS ORDERED: NITROFURANTOIN MACROCRYSTALS 100 MG CAP PO ONE (04:00)
[2019-03-16] MEDS ORDERED: MACROBID 100 M100 MG PO (05:25)
[2019-03-16] MEDS ORDERED: ONDANSETRON HCL INJ 2MG/ML 2ML 2 MG/ML VIAL IV STA (05:54)
[2019-03-16] MEDS ORDERED: MORPHINE SULFATE INJ 4 MG/ML INJ 1ML IV ONE (06:00)
--- NOTE | 2019-03-16 06:00 | NUR ---
OFFERED PAIN MEDICATION FOR PTS ABD PAIN. PT STATES THAT THE PAIN DOES NOT WARRENT MEDICATION AT THIS TIME. LET PT AND FAMILY KNOW OF AVAILABILITY OF PAIN MEDS IF NEEDED. VERBALIZED UNDERSTANDING.
[2019-03-16] MEDS ORDERED: NITROFURANTOIN MACROCRYSTALS 100 MG CAP ONE (07:13)
--- NOTE | 2019-03-16 07:15 | NUR ---
BEDSIDE REPORT WITH ALBERTO DONALD
--- NOTE | 2019-03-16 07:19 | Diagnostic Imaging Report ---
SHUNT SERIES: 5 views HISTORY: Multiple stents, headache, vomiting COMPARISON: Shunt series April 24, 2019 DISCUSSION: Soft tissue attenuation partially limits sensitivity of the exam. Overlying artifacts. No specific interval change in the radiopaque portions of the right approach ventricular shunt catheter, the distal again projecting near the midline of the upper thorax. The sacrum is partially obscured by stool and overlying bowel gas. IMPRESSION: 1. No acute radiographic abnormality. 2. No significant interval change of the radiopaque portion of the shunt catheter. Signed by: Dr. Fercho Alexander D.O., M.M.M. on 03/16/2019 7:15 AM
--- NOTE | 2019-03-16 08:23 | Diagnostic Imaging Report ---
EXAM: CT of the abdomen and pelvis WITHOUT contrast HISTORY: Abdominal pain, altered mental status, recent shunt surgery, history of back surgery/laminectomy COMPARISON: CT of the abdomen pelvis January 23, 2019. TECHNIQUE: The abdomen and pelvis were scanned utilizing a multidetector helical scanner. Coronal and sagittal reformats are available. PROTOCOL: Renal colic IV CONTRAST: None, which limits sensitivity and specificity of evaluation of the soft tissues and vascular structures. ORAL CONTRAST: None, which limits sensitivity and specificity of evaluation of the bowel. RADIATION DOSE: Total DLP: mGy*cm Estimated effective dose: (DLP x 0.015 x size factor) Dose modulation, iterative reconstruction, and/or weight based adjustment of the mA/kV was utilized to reduce the radiation dose to as low as reasonably achievable. COMPLICATIONS: None FINDINGS: LOWER THORAX: Unremarkable. HEPATOBILIARY: No mass. No biliary dilation. Stable numerous small stones within the dependent portion of the gallbladder, without associated inflammatory changes. SPLEEN: No splenomegaly. PANCREAS: No focal masses or ductal dilatation. ADRENALS: Stable diffuse mild thickening, without a discrete nodule. KIDNEYS/URETERS: No hydronephrosis, stones, or solid mass lesion identified. PELVIC ORGANS/BLADDER: Stable enlargement of the prostate. England catheter within the decompressed urinary bladder, which does limit evaluation of the bladder. PERITONEUM / RETROPERITONEUM: No free air or fluid. GI TRACT: On limited evaluation of the gastrointestinal tract, no dilation or wall thickening identified. The appendix appears normal. Colonic diverticulosis without evidence of associated acute inflammation. LYMPH NODES: No pathologically enlarged lymph nodes. VESSELS: Scattered atherosclerotic vascular calcifications, including the coronary arteries. BONES and JOINTS: Diffusely decreased mineralization of the osseous structures limits bone detail. Stable post surgical changes with lumbar laminectomy and posterior fusion, associated beam simon artifact partially limits regional evaluation. Stable healed fracture deformity of the left inferior pubic ramus. SOFT TISSUES: Interval placement of a radiopaque shunt catheter, the distal tip within the left upper quadrant of the abdomen adjacent to the posterior aspect of the spleen, mild fat stranding adjacent to the superficial ventral abdominal wall portion, but no fluid collection. IMPRESSION: 1. Findings compatible with the provided history of recent shunt placement. 2. Stable cholelithiasis, enlarged prostate, colonic diverticulosis, coronary atherosclerosis, and diffuse osseous demineralization. Signed by: Dr. Fercho Alexander D.O., M.M.M. on 03/16/2019 8:20 AM
--- NOTE | 2019-03-16 09:28 | NUR ---
RE INFORCED TO FAMILY TO KEEP URINARY CATH BAG BELOW KIDNEYS. STATES HE KEEPS IT STRAPPED TO HIS LEG EVEN WHILE IN BED. I EDUCATED THEM THAT THIS WILL INCREASE KIDNEY INFECTION AND I CAN GIVE THEM A BAG FOR BEDSIDE DRAINAGE. SHE DECLINED AND STATES SHE EMPTIES IT CONTINUALLY. SHE STATES, "I WILL SPEAK TO DR. GERMAIN ABOUT THAT".
== END 2019-03-16 09:54 | disposition home or self-care (01) ==
LOC: ER 00:51
DX: R35.0 Frequency of micturition (principal); N30.91 Cystitis, unspecified with hematuria; I10 Essential (primary) hypertension; E11.9 Type 2 diabetes mellitus without complications; I25.10 Atherosclerotic heart disease of native coronary artery without angina pectoris; Z86.73 Personal history of transient ischemic attack (TIA), and cerebral infarction without residual deficits
CPT/HCPCS: 74176; 75809; 81001; 87086; 87186; 99284

== ENCOUNTER → 2019-04-02 | Outpatient (CLI) | payer MEDICARE ==
[~2019-04-02] MED LIST changes: +FENTANYL CITRATE/PF 100MCG/2 ML INJ ONE; +LIDOCAINE HCL 1% LOCAL INJ 20 ML VIAL ONE; +MACROBID 100 M100 MG PO; +MIDAZOLAM HCL 2 MG/2 ML VIAL ONE
[2019-04-02 09:27] LABS: INR 0.84
[2019-04-02 09:28] LABS: PARTIAL THROMBOPLASTIN TIME 29.8 seconds (23.8-35.5)
--- NOTE | 2019-04-02 12:30 | Diagnostic Imaging Report ---
PROCEDURE: Suprapubic catheter placement Procedural Personnel Attending physician(s): Winston Azar MD Fellow physician(s): None Resident physician(s): None Advanced practice provider(s): None Pre-procedure diagnosis: Urethral obstruction Post-procedure diagnosis: Same Indication: Urinary obstruction Additional clinical history: None Complications: No immediate complications. IMPRESSION: Image-guided 16 [place] Islander suprapubic catheter placement. Plan: Tube to gravity. Remove indwelling England per Dr. Yap. Recovery x 1 hour then discharge when meets criteria. PROCEDURE SUMMARY - Ultrasound and fluoroscopically -guided placement of suprapubic bladder catheter - Additional procedure(s): None PROCEDURE DETAILS: Pre-procedure Consent: Informed consent for the procedure including risks, benefits and alternatives was obtained and time-out was performed prior to the procedure. Preparation: The site was prepared and draped using maximal sterile barrier technique including cutaneous antisepsis. Anesthesia/sedation Level of anesthesia/sedation: Moderate sedation (conscious sedation) 1mg Versed, 50mcg Fentanyl Anesthesia/sedation administered by: Independent trained observer under attending supervision with continuous monitoring of the patient?s level of consciousness and physiologic status Total intra-service sedation time (minutes): 30 Suprapubic catheter placement Local anesthesia was administered. The bladder was filled via an indwelling bladder catheter. Using imaging guidance as specified in the procedure summary, a suprapubic catheter was advanced into the bladder using trocar technique. Suprapubic catheter placed: 16Fr England Findings: Sonographic image shows retention balloon within bladder. Contrast injection confirms intraluminal positioning. Internal catheter securement: Balloon External catheter securement: Non-absorbable suture Contrast Contrast agent: Isovue 370 Contrast volume (mL): 10 Radiation Dose Fluoroscopy time (minutes): 0.0 Reference air kerma (mGy): 1.11 Additional Details Additional description of procedure: None Equipment details: None Specimens removed: None. A sample was not sent for analysis. Estimated blood loss (mL): Less than 10 Standardized report: [id number] Attestation Signer name: Winston Azar MD I attest that I was present for the entire procedure. I reviewed the stored images and agree with the report as written. Signed by: Winston Azar MD on 04/02/2019 12:26 PM
== END ==
LOC: DX 08:14
PROVIDERS: ATTEND Urology
DX: R33.8 Other retention of urine (principal)
CPT/HCPCS: 36415; 51102; 76942; 77002; 85049; 85610; 85730; J2001; J2250; J3010; 99152; 99153

== ENCOUNTER 2019-04-27 14:57 | Inpatient (IN) | payer MEDICARE ==
[~2019-04-27] VITALS: Ht 177.8 cm; Wt 93.4 kg
[~2019-04-27 14:57] MED LIST changes: -FENTANYL CITRATE/PF 100MCG/2 ML INJ ONE; -LIDOCAINE HCL 1% LOCAL INJ 20 ML VIAL ONE; -MIDAZOLAM HCL 2 MG/2 ML VIAL ONE
[2019-04-27 16:03] LABS: BASOPHILS # (AUTO) 0.1 (0.0-0.1); BASOPHILS % 1.1 % (0.0-1.0); EOSINOPHILS # (AUTO) 0.4 (0.0-0.4); EOSINOPHILS % 3.1 % (0.0-6.0); HEMATOCRIT 42.6 % (38.2-49.6); HEMOGLOBIN 14.4 g/dL (14.0-18.0); LYMPHOCYTES # (AUTO) 3.2 (1.0-3.2); LYMPHOCYTES % 26.6 % (18.0-39.1); MEAN CORPUSCULAR HEMOGLOBIN 30.1 pg (28-32); MEAN CORPUSCULAR HGB CONC 33.8 g/dL (31-35); MEAN CORPUSCULAR VOLUME 89.1 fL (81-99); MONOCYTES # (AUTO) 1.2 (0.2-0.8); MONOCYTES % 9.5 % (4.4-11.3); NEUTROPHILS # (AUTO) 7.2 (2.1-6.9); PLATELET COUNT 312 x10e3/uL (140-360); RED BLOOD COUNT 4.78 x10e6/uL (4.3-5.7); RED CELL DISTRIBUTION WIDTH 12.7 % (11.7-14.4)
[2019-04-27 16:13] LABS: INR 0.85; PROTHROMBIN TIME 12.1 seconds (11.9-14.5)
[2019-04-27 16:22] LABS: ALANINE AMINOTRANSFERASE 20 IU/L (0-55); ALBUMIN 3.5 g/dL (3.5-5.0); ALBUMIN/GLOBULIN RATIO 0.9 (0.8-2.0); ALKALINE PHOSPHATASE 91 IU/L (40-150); ANION GAP 14.6 mmol/L (8-16); BLOOD UREA NITROGEN 14 mg/dL (7-26); BUN/CREATININE RATIO 15 (6-25); CALCIUM 10.1 mg/dL (8.4-10.2); CARBON DIOXIDE 26 mmol/L (22-29); CHLORIDE 100 mmol/L (98-107); CREATININE, SERUM 0.93 mg/dL (0.72-1.25); EST GLOMERULAR FILTRATION RATE > 60 ML/MIN (60-); GLUCOSE 152 mg/dL (74-118); POTASSIUM 3.6 mmol/L (3.5-5.1); SODIUM 137 mmol/L (136-145)
[2019-04-27] MEDS ORDERED: LACTATED RINGER'S 1,000 ML IV ONE (16:30)
[2019-04-27] MEDS ORDERED: CEFTRIAXONE SOD 1 GM/NS 50 ML 50 ML IV ONE (17:00)
--- NOTE | 2019-04-27 17:00 | Diagnostic Imaging Report ---
CT BRAIN WO HISTORY: 68-year-old male with altered mental status COMPARISON: CT brain without contrast 02/22/2019; MRI brain without contrast 01/27/2019 TECHNIQUE: Noncontrast axial scans were obtained from skull base to the vertex. Coronal and sagittal reconstructions obtained from the axial data. One or more of the following dose reduction techniques were used: Automated exposure control, adjustment of the mA and/or kV according to patient size, and/or utilization of iterative reconstruction technique. DISCUSSION: Scalp/Skull: Subcutaneous shunt reservoir in the right parietal scalp, unchanged in position with associated surgical defect in the right parietal skull. Brain sulci: Mildly prominent. Ventricles: Right parietal approach ventricular shunt catheter with tip in the posterior margin of the right lateral ventricle body, similar in position to the recent CT from February 2019. The ventricles are moderately enlarged but similar in appearance to prior exam from 02/22/2019. For example the third ventricle measures approximately 1.2 cm in width and the left lateral ventricle body measures approximately 2.4 cm in width. No periventricular hypodense foci to suggest transependymal flow. Focal hypodensities are identified in the bilateral frontal horns, the locule in the left frontal horn is new from February 2019. Extra-axial spaces: No masses or fluid collections. Parenchyma: Scattered hypodense foci in the subinsular white matter are small vessel ischemic changes, similar to prior exam. No mass, hemorrhage, or large vascular territory acute infarct. Vessels: Atherosclerotic calcifications within bilateral intradural vertebral arteries and carotid siphons. Dural sinuses: No abnormal densities. Sellar/Suprasellar region: Intact. No masses. Skull base: Intact. Incidental findings: None. IMPRESSION: 1. No acute intracranial abnormalities. 2. Unchanged position of right parietal approach ventricular shunt catheter with nondependent hypodensities in the bilateral frontal horns. Hypodensity focus in the left frontal horn is new from prior exam. Chronic findings: Stable appearance of moderate ventriculomegaly compared to prior exam on 02/22/2019. Moderate chronic microvascular ischemic changes. This preliminary report was issued by Dr. Agustin Lombardi M.D. neuroradiology fellow at 1658 hours on 04/27/2019. Signed by: DR Phong Madrigal M.D. on 04/28/2019 3:01 PM
--- NOTE | 2019-04-27 17:05 | Diagnostic Imaging Report ---
Abdomen/KUB INDICATION: Altered level of consciousness ^AMS ^[id number] ^1625 ^Y COMPARISON: CT abdomen/pelvis 03/16/2019. FINDINGS: Portable, supine image obtained at 1626 hours. Medical Devices: Ventriculoperitoneal shunt is a chest in the mid epigastric region, loops in the medial right hemiabdomen and terminates in the left upper quadrant. Visualized shunt tubing is intact Bowel: Unremarkable bowel gas pattern. No dilated bowel loops Free air: None Abdominal calcifications: None Organomegaly: None Lung bases: Clear Bones: Stable pedicle screws and vertebral stabilizing bars in the lumbar spine. No evidence of hardware failure. No focal osseous lesions IMPRESSION: Unremarkable bowel gas pattern. Signed by: Dr. Lisa Pickens MD on 04/27/2019 5:01 PM
--- NOTE | 2019-04-27 17:05 | Diagnostic Imaging Report ---
EXAMINATION: CHEST SINGLE (PORTABLE) COMPARISON: Chest x-ray 03/16/2019 INDICATION: UTI, confusion, altered level of consciousness ^AMS ^[id number] ^1600 ^Y DISCUSSION: Frontal view of the chest obtained at 1615 hours. HEART AND MEDIASTINUM: The cardiomediastinal silhouette is unremarkable. LINES: Ventriculoperitoneal shunt tubing in the lower right neck is redemonstrated. Shunt tubing within the chest is poorly visualized due to underpenetration of the image. LUNGS: The lungs are well inflated and clear. No pneumonia or pulmonary edema. PLEURA: Mild eventration of the right diaphragm is stable. No pleural effusion or pneumothorax. BONES AND SOFT TISSUES: Degenerative changes and osteolysis of the distal left clavicle are stable. No new osseous findings. The soft tissues are normal. IMPRESSION: No acute cardiopulmonary disease. Signed by: Dr. Lisa Pickens MD on 04/27/2019 5:02 PM
--- NOTE | 2019-04-27 17:11 | Diagnostic Imaging Report ---
CT CERVICAL SPINE WO HISTORY: 68-year-old male with altered mental status COMPARISON: CT cervical spine without contrast 07/25/2018 TECHNIQUE: CT of the cervical spine without contrast. Sagittal and coronal reformations were created. One or more of the following dose reduction techniques were used: Automated exposure control, adjustment of the mA and/or kV according to patient size, and/or utilization of iterative reconstruction technique. FINDINGS: Cervical lordosis is preserved. There is no scoliosis or subluxation. No fractures, compression deformity, or destructive osseous lesions are seen. Multilevel degenerative disc changes with posterior disc osteophyte complexes from C2-C3 through C6-C7. No significant spinal canal stenosis. Multilevel uncovertebral arthrosis, most prominent in the lower cervical spine. The craniocervical junction is intact. No gross spinal canal masses are seen. Lung apices are unremarkable were visualized. The paravertebral and paraspinal soft tissues are unremarkable. IMPRESSION: 1. No acute osseous abnormalities. 2. Multilevel mild degenerative changes of cervical spine. This preliminary report was issued by Dr. Agustin Lombardi M.D. neuroradiology fellow at 1709 hours on 04/27/2019. Signed by: DR Phong Madrigal M.D. on 04/28/2019 3:03 PM
--- NOTE | 2019-04-27 18:00 | Diagnostic Imaging Report ---
CT Abdomen And Pelvis with Intravenous Contrast INDICATION: UTI ^lower abd pain ^[id number] ^1720 TECHNIQUE: Thin collimation axial images obtained from the diaphragm to the level of the pubic symphysis following the uneventful administration of 100 cc of low osmolar, nonionic intravenous contrast. Dose reduction techniques used: Automated exposure control, adjustment of the mAs and/or kVp according to patient size, standardized low-dose protocol, and/or iterative reconstruction technique. RADIATION DOSE: Total DLP: 865.4 mGy*cm Estimated effective dose: (DLP x 0.015 x size factor) mSv CTDIvol has been reviewed. It is below the limits set by the Radiation Protocol Committee (RPC). COMPARISON: CT abdomen/pelvis 03/16/2019. ABDOMEN FINDINGS: Lung Bases: Mild bibasilar air trapping. There is mild eventration of the right diaphragm. Coronary artery calcifications are present. Liver: Steatosis. No evidence for mass. Gallbladder: Present and contains multiple tiny calcified gallstones. No biliary ductal dilatation. Pancreas: Diffuse fatty atrophy without mass or ductal dilatation. Spleen: Normal in size. No evidence of mass.. Adrenal Glands: Mildly thickened. No mass. Kidneys: Right: Normal enhancement. No soft tissue mass. No hydronephrosis. Left: Normal enhancement. No soft tissue mass. No hydronephrosis. Lymph Nodes: No enlarged abdominal or periaortic lymph nodes. Aorta: Normal in diameter with scattered calcifications. Ventriculoperitoneal shunt loops in the medial right hemiabdomen and terminates in the left upper quadrant without surrounding fluid collection. There is a small amount of subcutaneous inflammation at the tube insertion site in the inferior right chest, stable. PELVIS FINDINGS: Bowel: Stomach: Distended with fluid but otherwise normal. Small Bowel: Normal in caliber with normal wall thickness. Large Bowel: Diverticulosis coli, particular of the sigmoid colon. No associated inflammation. Remainder of the large bowel is normal in diameter with normal wall thickness. Appendix: Normal appendix. Bladder: Contains a suprapubic catheter. The dubose appear thickened without perivesicular inflammation. Prostate gland: Mildly enlarged. Peritoneum/retroperitoneum: No free fluid or fluid collection. Bones: Bilateral pedicle screws in L2 and L3 are stable. Shanks right from L4 to S1 which are stable. No evidence of hardware failure. A cyst is status post laminectomy from L3 to S1. No focal osseous lesions. IMPRESSION: 1. Diverticulosis coli, particularly of the sigmoid colon. No CT findings of acute diverticulitis. 2. Medical devices as described above. 3. Mild diffuse bladder wall thickening may be the result of cystitis, either acute or chronic. Bladder outlet obstruction from the prostate gland should also be considered. 4. Steatosis. Signed by: Dr. Lisa Pickens MD on 04/27/2019 5:57 PM
[2019-04-27 18:06] LABS: BILIRUBIN,URINE NEGATIVE (NEGATIVE); CLARITY,URINE SL CLOUDY (CLEAR); COLOR,URINE YELLOW (YELLOW); KETONES,URINE NEGATIVE (NEGATIVE); LEUKOCYTE ESTERASE ,URINE MODERATE (NEGATIVE); NITRITE,URINE NEGATIVE (NEGATIVE); PROTEIN,URINE DIPSTICK NEGATIVE (NEGATIVE); URINE UROBILINOGEN 0.2 mg/dL (0.2 - 1)
[2019-04-27 18:11] LABS: BACTERIA,URINE MODERATE /HPF; EPITHELIAL CELLS,URINE FEW /LPF
[2019-04-27] MEDS ORDERED: SODIUM CHLORIDE FLUSH 10 ML SYR INJ PRN (18:30)
[2019-04-27] MEDS ORDERED: VANCOMYCIN 1GM/NS 250 ML 250 ML IV ONE (18:45)
[2019-04-27 20:00] VITALS: BP 168/73
[2019-04-27] MEDS ORDERED: SODIUM CHLORIDE 0.9% 50ML 0 ML ONE (20:29)
[2019-04-27] MEDS ORDERED: IOPAMIDOL 370 MG/ML 200 ML INFUS..BTL INJ ONE (20:29)
[2019-04-28] VITALS (8 sets, daily range): BP systolic 110–187; BP diastolic 58–97
[2019-04-28] MEDS ORDERED: TOBREX5 ML OP (01:25)
[2019-04-28 06:02] LABS: BASOPHILS # (AUTO) 0.1 (0.0-0.1); EOSINOPHILS # (AUTO) 0.5 (0.0-0.4); EOSINOPHILS % 4.2 % (0.0-6.0); HEMATOCRIT 42.2 % (38.2-49.6); HEMOGLOBIN 13.9 g/dL (14.0-18.0); LYMPHOCYTES # (AUTO) 2.7 (1.0-3.2); LYMPHOCYTES % 25.3 % (18.0-39.1); MEAN CORPUSCULAR HEMOGLOBIN 29.5 pg (28-32); MEAN CORPUSCULAR HGB CONC 32.9 g/dL (31-35); MEAN CORPUSCULAR VOLUME 89.6 fL (81-99); MONOCYTES # (AUTO) 1.1 (0.2-0.8); MONOCYTES % 9.8 % (4.4-11.3); NEUTROPHILS # (AUTO) 6.3 (2.1-6.9); NEUTROPHILS % 58.8 % (38.7-80.0); PLATELET COUNT 267 x10e3/uL (140-360); RED BLOOD COUNT 4.71 x10e6/uL (4.3-5.7); RED CELL DISTRIBUTION WIDTH 12.6 % (11.7-14.4)
[2019-04-28 06:24] LABS: ANION GAP 14.4 mmol/L (8-16); BLOOD UREA NITROGEN 9 mg/dL (7-26); BUN/CREATININE RATIO 11 (6-25); CALCIUM 9.4 mg/dL (8.4-10.2); CARBON DIOXIDE 27 mmol/L (22-29); CHLORIDE 101 mmol/L (98-107); EST GLOMERULAR FILTRATION RATE > 60 ML/MIN (60-); GLUCOSE 165 mg/dL (74-118); POTASSIUM 3.4 mmol/L (3.5-5.1); SODIUM 139 mmol/L (136-145)
[2019-04-28] MEDS ORDERED: ONDANSETRON HCL INJ 2MG/ML 2ML 2 MG/ML VIAL IV PRN (09:45)
[2019-04-28] MEDS ORDERED: ACETAMINOPHEN 325 MG TAB PO PRN (09:45)
[2019-04-28] MEDS ORDERED: DEXTROSE 50% SYRINGE 50 ML IV PRN (09:45)
[2019-04-28] MEDS ORDERED: MELATONIN 5 MG TABLET PO PRN (09:45)
[2019-04-28] MEDS ORDERED: ACETAMINOPHEN/CODEINE 300MG - 30MG TAB PO PRN (09:45)
[2019-04-28] MEDS ORDERED: SODIUM CHLORIDE 0.9% 250ML 250 ML ONE (10:56)
[2019-04-28] MEDS: CEFTRIAXONE SOD 1 GM/NS 50 ML 50 ML IV SCH (11:17)
[2019-04-28] MEDS: INSULIN LISPRO 100 UNIT/1 ML 3ML VIAL SQ SCH ×3 (11:30→21:00)
[2019-04-28] MEDS ORDERED: TOBRAMYCIN 0.3% (OPTH) 5 ML BTL OP SCH (14:00)
[2019-04-28] MEDS: FLECAINIDE ACETATE 100 MG TAB PO SCH (16:26)
[2019-04-28] MEDS: PROPRANOLOL HCL 40 MG TAB PO SCH (16:26)
[2019-04-28] MEDS: FAMOTIDINE 20 MG TAB PO SCH (16:27)
[2019-04-28] MEDS: TOBRAMYCIN 0.3% (OPTH) 5 ML BTL OP SCH (22:00)
[2019-04-29] VITALS (9 sets, daily range): BP systolic 133–214; BP diastolic 65–94
[2019-04-29 04:54] LABS: BASOPHILS # (AUTO) 0.1 (0.0-0.1); BASOPHILS % 1.1 % (0.0-1.0); EOSINOPHILS # (AUTO) 0.4 (0.0-0.4); EOSINOPHILS % 3.7 % (0.0-6.0); LYMPHOCYTES # (AUTO) 2.5 (1.0-3.2); LYMPHOCYTES % 22.8 % (18.0-39.1); MEAN CORPUSCULAR HEMOGLOBIN 29.9 pg (28-32); MEAN CORPUSCULAR HGB CONC 33.3 g/dL (31-35); MEAN CORPUSCULAR VOLUME 89.7 fL (81-99); MONOCYTES # (AUTO) 1.1 (0.2-0.8); MONOCYTES % 9.8 % (4.4-11.3); NEUTROPHILS # (AUTO) 6.7 (2.1-6.9); PLATELET COUNT 265 x10e3/uL (140-360); RED BLOOD COUNT 4.68 x10e6/uL (4.3-5.7); RED CELL DISTRIBUTION WIDTH 12.7 % (11.7-14.4)
[2019-04-29 05:16] LABS: ANION GAP 13.4 mmol/L (8-16); BLOOD UREA NITROGEN 11 mg/dL (7-26); BUN/CREATININE RATIO 13 (6-25); CALCIUM 9.5 mg/dL (8.4-10.2); CARBON DIOXIDE 26 mmol/L (22-29); CHLORIDE 100 mmol/L (98-107); CREATININE, SERUM 0.86 mg/dL (0.72-1.25); EST GLOMERULAR FILTRATION RATE > 60 ML/MIN (60-); GLUCOSE 211 mg/dL (74-118); POTASSIUM 3.4 mmol/L (3.5-5.1); SODIUM 136 mmol/L (136-145)
[2019-04-29] MEDS ORDERED: CEFDINIR300 MG PO (05:38)
[2019-04-29] MEDS: TOBRAMYCIN 0.3% (OPTH) 5 ML BTL OP SCH ×3 (06:00→21:03)
[2019-04-29] MEDS: INSULIN LISPRO 100 UNIT/1 ML 3ML VIAL SQ SCH ×4 (07:30→20:19)
[2019-04-29] MEDS: DULOXETINE HCL 30 MG DELAYED RELEASE PO SCH (08:11)
[2019-04-29] MEDS: FAMOTIDINE 20 MG TAB PO SCH ×2 (08:11→16:46)
[2019-04-29] MEDS: PROPRANOLOL HCL 40 MG TAB PO SCH ×2 (08:14→16:47)
[2019-04-29] MEDS: FLECAINIDE ACETATE 100 MG TAB PO SCH ×2 (08:14→16:47)
[2019-04-29] MEDS ORDERED: AMLODIPINE BESYLATE 10 MG TAB PO SCH (09:00)
[2019-04-29] MEDS: CEFTRIAXONE SOD 1 GM/NS 50 ML 50 ML IV SCH (09:11)
[2019-04-29] MEDS: HYDRALAZINE HCL 20 MG/ML VIAL IV PRN (11:49)
[2019-04-30] VITALS: BP 119/81
[2019-04-30 04:00] VITALS: BP 202/93
[2019-04-30] MEDS: HYDRALAZINE HCL 20 MG/ML VIAL IV PRN (04:16)
[2019-04-30] MEDS: TOBRAMYCIN 0.3% (OPTH) 5 ML BTL OP SCH (05:03)
[2019-04-30] MEDS ORDERED: POTASSIUM CHLORIDE 20 MEQ TAB CR PO STA (05:50)
[2019-04-30 07:43] VITALS: BP 170/79
[2019-04-30 08:00] VITALS: BP 170/79
[2019-04-30] MEDS ORDERED: NIFEDIPINE CR 30 MG TAB PO SCH (09:00)
[2019-04-30] MEDS ORDERED: NITROFURANTOIN MACROCRYSTALS 100 MG CAP PO SCH (09:00)
[2019-04-30] MEDS: FAMOTIDINE 20 MG TAB PO SCH (09:06)
[2019-04-30] MEDS: DULOXETINE HCL 30 MG DELAYED RELEASE PO SCH (09:07)
[2019-04-30] MEDS: INSULIN LISPRO 100 UNIT/1 ML 3ML VIAL SQ SCH ×2 (09:07→11:53)
[2019-04-30] MEDS: PROPRANOLOL HCL 40 MG TAB PO SCH (09:07)
[2019-04-30] MEDS: FLECAINIDE ACETATE 100 MG TAB PO SCH (09:08)
[2019-04-30] MEDS: CEFTRIAXONE SOD 1 GM/NS 50 ML 50 ML IV SCH (09:08)
[2019-04-30 12:01] VITALS: BP 159/86
--- NOTE | 2019-05-01 09:44 | Discharge Summary ---
ADMISSION DIAGNOSES: Urinary tract infection with severe sepsis, acute metabolic encephalopathy due to urinary tract infection, hypertension, atrial fibrillation, depression, and type 2 diabetes. DISCHARGE DIAGNOSES: Urinary tract infection with severe sepsis, acute metabolic encephalopathy due to urinary tract infection, hypertension, atrial fibrillation, depression, type 2 diabetes, Escherichia coli, Citrobacter and Enterococcus urinary tract infection, present on admission with severe sepsis. HISTORY: Hypertension, type 2 diabetes, atrial fibrillation, normal pressure hydrocephalus, depression, neuropathy, BPH, and hyperlipidemia. 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 HOSPITAL COURSE: A 68-year-old male brought to the ER by due to AMS that began the day prior to admission. On admission, the lactic acid was 3.8. The patient was started on Rocephin and Urology was consulted due to a suprapubic catheter placement. CT of the brain was negative and ammonia was within normal limits. CT of the C-spine was negative. KUB was unremarkable. CT of the abdomen and pelvis showed diverticulosis coli. No acute findings of diverticulitis. There were no other signs of sepsis, so the UTI was only source. Urine culture came back positive for E. coli, Citrobacter, and Enterococcus. The patient was given 7 days of Rocephin and Macrobid. He will discharge to [facility] until he is strong enough to discharge home with again. The patient and understand discharge instructions and agreed to plan. Vital signs are stable. The patient is afebrile. Dictated by Rosalva Cole NP MD RONN Kwan/MODL /[id number]
== END 2019-04-30 13:24 | DRG 871 ==
LOC: ER 14:57 → ERHOLD 18:25 → MED/SURG3 19:38
PROVIDERS: ADMIT Internal Medicine; ATTEND Internal Medicine
DX: A41.51 Sepsis due to Escherichia coli [E. coli] (principal); G93.41 Metabolic encephalopathy; N39.0 Urinary tract infection, site not specified; I10 Essential (primary) hypertension; I48.91 Unspecified atrial fibrillation; F32.9 Major depressive disorder, single episode, unspecified; E11.9 Type 2 diabetes mellitus without complications; A41.81 Sepsis due to Enterococcus; A41.89 Other specified sepsis; R65.20 Severe sepsis without septic shock
CPT/HCPCS: 36415; 70450; 71045; 72125; 74018; 74177; 80048; 80053; 81001; 82140; 82948; 83605; 85025; 85610; 87040; 87086; 87186; 93005; 97139; 99284; J0360; J0696; J3370; J7050; J7121; Q9967

== ENCOUNTER 2019-05-05 10:46 | Inpatient (IN) | payer MEDICARE ==
[~2019-05-05] VITALS: Ht 177.8 cm; Wt 92.5 kg
[2019-05-05] MEDS: SODIUM CHLORIDE 0.9% 1000ML 1,000 ML IV SCH ×2 (02:50→16:04)
[~2019-05-05 10:46] MED LIST changes: +CEFDINIR300 MG PO; +TOBREX5 ML OP
[2019-05-05 11:21] LABS: BASOPHILS # (AUTO) 0.1 (0.0-0.1); BASOPHILS % 0.9 % (0.0-1.0); EOSINOPHILS # (AUTO) 0.3 (0.0-0.4); EOSINOPHILS % 1.9 % (0.0-6.0); HEMATOCRIT 43.7 % (38.2-49.6); HEMOGLOBIN 14.8 g/dL (14.0-18.0); LYMPHOCYTES # (AUTO) 2.1 (1.0-3.2); LYMPHOCYTES % 16.4 % (18.0-39.1); MEAN CORPUSCULAR HEMOGLOBIN 30.4 pg (28-32); MEAN CORPUSCULAR HGB CONC 33.9 g/dL (31-35); MEAN CORPUSCULAR VOLUME 89.7 fL (81-99); MONOCYTES % 7.4 % (4.4-11.3); NEUTROPHILS # (AUTO) 9.4 (2.1-6.9); NEUTROPHILS % 72.5 % (38.7-80.0); PLATELET COUNT 287 x10e3/uL (140-360); RED BLOOD COUNT 4.87 x10e6/uL (4.3-5.7); RED CELL DISTRIBUTION WIDTH 12.8 % (11.7-14.4)
[2019-05-05 11:24] LABS: BILIRUBIN,URINE NEGATIVE (NEGATIVE); CLARITY,URINE CLOUDY (CLEAR); COLOR,URINE YELLOW (YELLOW); KETONES,URINE NEGATIVE (NEGATIVE); LEUKOCYTE ESTERASE ,URINE SMALL (NEGATIVE); NITRITE,URINE NEGATIVE (NEGATIVE); PROTEIN,URINE DIPSTICK 1+ (NEGATIVE); URINE UROBILINOGEN 0.2 mg/dL (0.2 - 1)
[2019-05-05 11:44] LABS: ANION GAP 11.9 mmol/L (8-16); BLOOD UREA NITROGEN 17 mg/dL (7-26); BUN/CREATININE RATIO 15 (6-25); CALCIUM 9.2 mg/dL (8.4-10.2); CARBON DIOXIDE 26 mmol/L (22-29); CHLORIDE 99 mmol/L (98-107); CREATININE, SERUM 1.12 mg/dL (0.72-1.25); EST GLOMERULAR FILTRATION RATE > 60 ML/MIN (60-); POTASSIUM 3.9 mmol/L (3.5-5.1); SODIUM 133 mmol/L (136-145)
[2019-05-05 11:47] LABS: GLUCOSE 413 mg/dL (74-118)
[2019-05-05 11:52] LABS: BACTERIA,URINE MANY /HPF; EPITHELIAL CELLS,URINE MODERATE /LPF; MUCUS,URINE MODERATE (RARE); RBC,URINE >50 /HPF (0-5); WBC,URINE (MAN) >50 /HPF (0-5)
[2019-05-05 11:53] LABS: YEAST,URINE MANY
[2019-05-05] MEDS ORDERED: INSULIN REGULAR, HUMAN 100 UNIT/1 ML 3ML VIAL SQ ONE (12:00)
[2019-05-05] MEDS ORDERED: CEFTRIAXONE SOD 1 GM/NS 50 ML 50 ML IV ONE (12:00)
[2019-05-05] MEDS ORDERED: SODIUM CHLORIDE 0.9% 1000ML 1,000 ML IV ONE (12:00)
[2019-05-05] MEDS ORDERED: DEXTROSE 50% SYRINGE 50 ML IV PRN (13:00)
[2019-05-05] MEDS ORDERED: ONDANSETRON HCL INJ 2MG/ML 2ML 2 MG/ML VIAL IV PRN (13:00)
[2019-05-05] MEDS ORDERED: SODIUM CHLORIDE FLUSH 10 ML SYR INJ PRN (13:00)
[2019-05-05] MEDS ORDERED: CEFTRIAXONE SOD 1 GM/NS 50 ML 50 ML IV SCH (13:00)
[2019-05-05] MEDS: INSULIN REGULAR, HUMAN 100 UNIT/1 ML 3ML VIAL SQ SCH ×3 (14:09→20:47)
--- NOTE | 2019-05-05 14:59 | NUR ---
report received from CABIN SERVICE AGENT; awaiting pt's arrival to unit.
--- NOTE | 2019-05-05 15:30 | NUR ---
pt received to room 294; pt awake, alert, oriented X3, spouse at bedside. no s/s distress noted. will continue to assess.
[2019-05-05 15:32] VITALS: BP 174/77
[2019-05-05 15:57] VITALS: BP 174/77
--- NOTE | 2019-05-05 16:42 | NUR ---
paged Dr. Barahona regarding pt's elevated blood pressure; awaiting callback.
--- NOTE | 2019-05-05 16:56 | NUR ---
spoke with Trinity from Dr. Barahona's group who recommended confirming pt's dose of Propanolol that he takes at home. per , pt takes Propanolol but states his HR is usually not bradycardic. pt awake, alert, smiling, sitting up in bed, eating dinner. no s/s distress. will continue to monitor.
[2019-05-05] MEDS ORDERED: NON-FORMULARY MEDICATION (Flecainide Acetate 100 MG) PO SCH (18:15)
[2019-05-05] MEDS ORDERED: FLECAINIDE ACETATE 100 MG TAB PO ONE (18:30)
--- NOTE | 2019-05-05 19:25 | NUR ---
Patient visited in room during nursing rounds. Patient alert and oriented x2-3 (i.e. pt has intermittent confusion but easy to re-orient). Suprapubic catheter in place. IVF (NS at 100ml/hr) running. Call cui within reach. Will monitor closely.
[2019-05-05 20:00] VITALS: BP 168/86
[2019-05-05] MEDS: METFORMIN HCL 500 MG TAB PO SCH (20:47)
[2019-05-05] MEDS: MEROPENEM 1GM 100 ML IV SCH (20:47)
[2019-05-05] MEDS: DULOXETINE HCL 30 MG DELAYED RELEASE PO SCH (20:47)
[2019-05-05] MEDS: SITAGLIPTIN 100 MG TAB PO SCH (20:47)
[2019-05-05] MEDS: PROPRANOLOL HCL 40 MG TAB PO SCH (20:47)
[2019-05-06] VITALS (8 sets, daily range): BP systolic 129–180; BP diastolic 60–93
--- NOTE | 2019-05-06 | NUR ---
IV (Right AC 20g) was pulled out. Pt states he was not aware it came out. Will re-start a new IV.
[2019-05-06] MEDS: HYDRALAZINE HCL 20 MG/ML VIAL IV PRN ×3 (00:20→21:00)
--- NOTE | 2019-05-06 00:20 | NUR ---
New IV (left AC 22g) started. IVF restarted.
[2019-05-06] MEDS: MEROPENEM 1GM 100 ML IV SCH ×3 (04:19→20:56)
[2019-05-06 06:20] LABS: BASOPHILS # (AUTO) 0.1 (0.0-0.1); BASOPHILS % 0.8 % (0.0-1.0); EOSINOPHILS # (AUTO) 0.3 (0.0-0.4); EOSINOPHILS % 2.6 % (0.0-6.0); HEMATOCRIT 41.5 % (38.2-49.6); LYMPHOCYTES # (AUTO) 2.5 (1.0-3.2); LYMPHOCYTES % 18.9 % (18.0-39.1); MEAN CORPUSCULAR HEMOGLOBIN 30.3 pg (28-32); MEAN CORPUSCULAR HGB CONC 33.7 g/dL (31-35); MEAN CORPUSCULAR VOLUME 89.8 fL (81-99); MONOCYTES # (AUTO) 1.1 (0.2-0.8); MONOCYTES % 8.7 % (4.4-11.3); NEUTROPHILS % 68.3 % (38.7-80.0); PLATELET COUNT 262 x10e3/uL (140-360); RED BLOOD COUNT 4.62 x10e6/uL (4.3-5.7); RED CELL DISTRIBUTION WIDTH 12.8 % (11.7-14.4)
[2019-05-06 06:44] LABS: ALANINE AMINOTRANSFERASE 13 IU/L (0-55); ALBUMIN 3.4 g/dL (3.5-5.0); ALBUMIN/GLOBULIN RATIO 0.9 (0.8-2.0); ALKALINE PHOSPHATASE 96 IU/L (40-150); ANION GAP 13.6 mmol/L (8-16); BLOOD UREA NITROGEN 10 mg/dL (7-26); BUN/CREATININE RATIO 13 (6-25); CALCIUM 9.1 mg/dL (8.4-10.2); CARBON DIOXIDE 22 mmol/L (22-29); CHLORIDE 103 mmol/L (98-107); CREATININE, SERUM 0.76 mg/dL (0.72-1.25); EST GLOMERULAR FILTRATION RATE > 60 ML/MIN (60-); GLUCOSE 224 mg/dL (74-118); MAGNESIUM 1.5 MG/DL (1.3-2.1); PHOSPHORUS 2.2 MG/DL (2.3-4.7); POTASSIUM 3.6 mmol/L (3.5-5.1); SODIUM 135 mmol/L (136-145)
[2019-05-06] MEDS: DULOXETINE HCL 30 MG DELAYED RELEASE PO SCH (08:29)
[2019-05-06] MEDS: METFORMIN HCL 500 MG TAB PO SCH ×2 (08:29→17:12)
[2019-05-06] MEDS: SITAGLIPTIN 100 MG TAB PO SCH (08:29)
[2019-05-06] MEDS: PROPRANOLOL HCL 40 MG TAB PO SCH ×2 (08:29→17:12)
[2019-05-06] MEDS: FLECAINIDE ACETATE 100 MG TAB PO SCH ×2 (08:29→17:12)
[2019-05-06] MEDS: FAMOTIDINE 20 MG TAB PO SCH (08:31)
[2019-05-06] MEDS: INSULIN REGULAR, HUMAN 100 UNIT/1 ML 3ML VIAL SQ SCH ×4 (08:31→21:00)
[2019-05-06] MEDS: SODIUM CHLORIDE 0.9% 1000ML 1,000 ML IV SCH ×2 (08:46→20:56)
--- NOTE | 2019-05-06 11:49 | NUR ---
PT IS A READMIT, WAS HERE RECENTLY AND DISCHARGED TO [facility] WHERE HE HAD A IV ISSUE AND WAS SENT HERE. PRIOR TO SNF, WAS LIVING AT HOME WITH BUT IS MAINTAINING CONFUSION. IS KINDRA [phone]. SHE STATES HE WAS NOT GETTING THE MEDICATIONS APPROPRIATELY THEN FELT LIKE SHE WAS GETTING THE RUN AROUND AND TOLD HER HIS VEINS WERE BAD. DOES NOT WANT TO RETURN TO A FACILITY SHE WANTS HIM TO RETURN HOME WITH [facility] [phone]
--- NOTE | 2019-05-06 13:40 | NUR ---
Call recvd from Dr Mccord to cancel her Consult since, she talked to Dr Barahona yesterday regarding patient care that Dr Yanes should be involve with it not Dr Mccord
--- NOTE | 2019-05-06 15:10 | NUR ---
Visit made by the Spiritual Care Department Pastoral Visitor, Gianna Garcia. PV provided pastoral presence, prayer, hospitality, and supportive listening. Pastoral Visitor informed pt/family of the scope of [employer] and availability. SLIME VANESSA Supervisor Landscape Spiritual Care Department O: [phone] Pager: [phone] ([phone] number calling from)
[2019-05-07] VITALS (8 sets, daily range): BP systolic 121–198; BP diastolic 59–96
[2019-05-07] MEDS: MEROPENEM 1GM 100 ML IV SCH ×2 (04:00→12:05)
[2019-05-07 05:42] LABS: BASOPHILS # (AUTO) 0.1 (0.0-0.1); BASOPHILS % 0.8 % (0.0-1.0); EOSINOPHILS # (AUTO) 0.4 (0.0-0.4); EOSINOPHILS % 3.4 % (0.0-6.0); HEMATOCRIT 40.4 % (38.2-49.6); HEMOGLOBIN 13.5 g/dL (14.0-18.0); LYMPHOCYTES # (AUTO) 2.8 (1.0-3.2); LYMPHOCYTES % 23.8 % (18.0-39.1); MEAN CORPUSCULAR HEMOGLOBIN 29.8 pg (28-32); MEAN CORPUSCULAR HGB CONC 33.4 g/dL (31-35); MEAN CORPUSCULAR VOLUME 89.2 fL (81-99); MONOCYTES # (AUTO) 1.2 (0.2-0.8); MONOCYTES % 9.7 % (4.4-11.3); NEUTROPHILS # (AUTO) 7.3 (2.1-6.9); NEUTROPHILS % 61.6 % (38.7-80.0); PLATELET COUNT 266 x10e3/uL (140-360); RED BLOOD COUNT 4.53 x10e6/uL (4.3-5.7)
[2019-05-07 05:58] LABS: ANION GAP 13.6 mmol/L (8-16); BLOOD UREA NITROGEN 12 mg/dL (7-26); BUN/CREATININE RATIO 15 (6-25); CARBON DIOXIDE 22 mmol/L (22-29); CHLORIDE 103 mmol/L (98-107); CREATININE, SERUM 0.79 mg/dL (0.72-1.25); EST GLOMERULAR FILTRATION RATE > 60 ML/MIN (60-); GLUCOSE 204 mg/dL (74-118); POTASSIUM 3.6 mmol/L (3.5-5.1); SODIUM 135 mmol/L (136-145)
--- NOTE | 2019-05-07 06:58 | NUR ---
BEDSIDE SHIFT REPORT RECEIVED FROM OFF GOING NURSE. PATIENT IS IN STABLE CONDITION. CALL LIGHT WITHIN REACH. BED IN THE LOWEST POSITION.
[2019-05-07] MEDS: INSULIN REGULAR, HUMAN 100 UNIT/1 ML 3ML VIAL SQ SCH ×4 (08:40→21:10)
[2019-05-07] MEDS: METFORMIN HCL 500 MG TAB PO SCH ×2 (08:51→17:26)
[2019-05-07] MEDS: FAMOTIDINE 20 MG TAB PO SCH (08:51)
[2019-05-07] MEDS: DULOXETINE HCL 30 MG DELAYED RELEASE PO SCH (08:51)
[2019-05-07] MEDS: SITAGLIPTIN 100 MG TAB PO SCH (08:52)
[2019-05-07] MEDS: FLECAINIDE ACETATE 100 MG TAB PO SCH ×2 (08:52→17:26)
[2019-05-07] MEDS: PROPRANOLOL HCL 40 MG TAB PO SCH ×2 (08:52→15:18)
[2019-05-07] MEDS: SODIUM CHLORIDE 0.9% 1000ML 1,000 ML IV SCH (12:05)
[2019-05-07] MEDS: NIFEDIPINE CR 30 MG TAB PO SCH (13:45)
[2019-05-07] MEDS: FLUCONAZOLE 100 MG TAB PO SCH (13:46)
--- NOTE | 2019-05-07 19:10 | NUR ---
Bedside shift report given to oncoming nurse. Patient is resting in bed. No acute distress noted. Patient stated that he pulled SP catheter out. Call light within reach. Bed in the lowest position.
--- NOTE | 2019-05-07 19:11 | NUR ---
Paged Dr. Yap to notify that patient pulled suprapubic catheter out.
--- NOTE | 2019-05-07 19:15 | NUR ---
Notified Dr. Yap that patient pulled SP catheter out, per MD nursing to put SP catheter back. Notified oncoming nurse and medical housekeeper.
--- NOTE | 2019-05-07 19:15 | NUR ---
Received report from morning Sahra in the bed.pt pulled suprapubic catheter.notified and storage facility housekeeper.
--- NOTE | 2019-05-07 20:00 | NUR ---
structural steel shop supervisor inserted 16 F suprapubic catheter back.pt tolerated well.urine draining well.keep monitor the pt.
[2019-05-08 00:37] VITALS: BP 135/79
--- NOTE | 2019-05-08 01:17 | NUR ---
Assessment done.no resp.distress.no pain voiced.bed locked and in lowest position.phone and call light within reach.instructed to call for assistance as needed.
[2019-05-08 02:51] LABS: BASOPHILS # (AUTO) 0.1 (0.0-0.1); BASOPHILS % 0.6 % (0.0-1.0); EOSINOPHILS # (AUTO) 0.4 (0.0-0.4); EOSINOPHILS % 2.8 % (0.0-6.0); HEMATOCRIT 39.4 % (38.2-49.6); HEMOGLOBIN 13.8 g/dL (14.0-18.0); LYMPHOCYTES # (AUTO) 3.5 (1.0-3.2); LYMPHOCYTES % 22.6 % (18.0-39.1); MEAN CORPUSCULAR HEMOGLOBIN 30.7 pg (28-32); MEAN CORPUSCULAR VOLUME 87.8 fL (81-99); MONOCYTES # (AUTO) 1.5 (0.2-0.8); MONOCYTES % 9.3 % (4.4-11.3); NEUTROPHILS % 64.1 % (38.7-80.0); PLATELET COUNT 282 x10e3/uL (140-360); RED BLOOD COUNT 4.49 x10e6/uL (4.3-5.7); RED CELL DISTRIBUTION WIDTH 12.8 % (11.7-14.4)
[2019-05-08 03:14] LABS: ANION GAP 12.5 mmol/L (8-16); BLOOD UREA NITROGEN 10 mg/dL (7-26); BUN/CREATININE RATIO 13 (6-25); CALCIUM 9.2 mg/dL (8.4-10.2); CARBON DIOXIDE 25 mmol/L (22-29); CHLORIDE 102 mmol/L (98-107); CREATININE, SERUM 0.78 mg/dL (0.72-1.25); EST GLOMERULAR FILTRATION RATE > 60 ML/MIN (60-); GLUCOSE 136 mg/dL (74-118); POTASSIUM 3.5 mmol/L (3.5-5.1); SODIUM 136 mmol/L (136-145)
[2019-05-08 04:00] VITALS: BP 164/82
[2019-05-08] MEDS: NIFEDIPINE CR 30 MG TAB PO SCH (06:26)
--- NOTE | 2019-05-08 06:27 | NUR ---
Patient pulled iv cannula out.refused to start new iv.Bp 164/82 noted .procardia XL 30 mg po given.
--- NOTE | 2019-05-08 06:38 | NUR ---
Bed side shift report given to the oncoming Rn.stable condition.
--- NOTE | 2019-05-08 06:40 | NUR ---
Dr. ross rounding on pt, per MD pt can be discharged from urology stand point.
--- NOTE | 2019-05-08 06:58 | NUR ---
BEDSIDE SHIFT REPORT RECEIVED FROM OFF GOING NURSE. PATIENT IS RESTING IN BED. NO ACUTE DISTRESS NOTED. CALL LIGHT WITHIN REACH. BED IN THE LOWEST POSITION.
[2019-05-08 07:42] VITALS: BP 146/77
[2019-05-08] MEDS: INSULIN REGULAR, HUMAN 100 UNIT/1 ML 3ML VIAL SQ SCH ×2 (08:30→10:50)
[2019-05-08] MEDS: PROPRANOLOL HCL 40 MG TAB PO SCH (08:45)
[2019-05-08] MEDS: METFORMIN HCL 500 MG TAB PO SCH (08:45)
[2019-05-08] MEDS: FLUCONAZOLE 100 MG TAB PO SCH (08:45)
[2019-05-08] MEDS: SITAGLIPTIN 100 MG TAB PO SCH (08:45)
[2019-05-08] MEDS: FAMOTIDINE 20 MG TAB PO SCH (08:45)
[2019-05-08] MEDS: DULOXETINE HCL 30 MG DELAYED RELEASE PO SCH (08:45)
[2019-05-08] MEDS: FLECAINIDE ACETATE 100 MG TAB PO SCH (08:46)
[2019-05-08 09:13] VITALS: BP 146/77
[2019-05-08] MEDS ORDERED: DIFLUCAN100 MG PO (09:51)
[2019-05-08] MEDS ORDERED: NIFEDIPINE ER30 M1 PO (09:51)
[2019-05-08] MEDS ORDERED: FLUCONAZOLE 100 MG TAB PO ONE (10:30)
--- NOTE | 2019-05-08 11:00 | NUR ---
ORDER RECEIVED FOR HOME HEALTH FOR SN AND PT TO EVAL AND TREAT. MET W THE PT AND FAMILY AT THE BEDSIDE. STATES THE PT WAS ON SERVICE W [facility] @ OFF [phone] / FAX: [phone]. CHOICE LETTER WAS SIGNED. COPY TO PT AND COPY TO CHART. VERIFIED PT ON THEIR SERVICE W [facility]. REFERRAL FAXED TO [facility]. IMM LETTER EXPLAINED TO PT. PT VERBALIZED UNDERSTANDING. IMM LETTER SIGNED. COPY TO PT AND COPY TO CHART.
--- NOTE | 2019-05-08 11:18 | NUR ---
RECEIVED DC ORDER FROM SONU JOSEPH. PATIENT IS IN STABLE CONDITION. PATIENT DOES NOT HAVE AN IV LINE. DISCHARGE TEACHING PROVIDED TO PATIENT AND , THEY BOTH VERBALIZED UNDERSTANDING. DISCHARGE FOLDER WITH PRESCRIPTIONS ON HAND. PERSONAL ITEMS ON HAND. PATIENT ACCOMPANIED TO PRIVATE AUTO VIA WHEELCHAIR BY STAFF.
[2019-05-08 11:20] VITALS: BP 119/65
[2019-05-08] MEDS ORDERED: FLUCONAZOLE 100 MG TAB PO SCH (14:00)
--- NOTE | 2019-05-09 04:31 | Discharge Summary ---
ADMISSION DIAGNOSES: Urinary tract infection, failed outpatient treatment with IV Rocephin; neurogenic bladder, status post suprapubic catheter; normal pressure hydrocephalus with BEARINGIZER shunt with deteriorating neuro function; type 2 diabetes with hyperglycemia; paroxysmal atrial fibrillation; hypertension. DISCHARGE DIAGNOSES: Urinary tract infection, failed outpatient treatment with IV Rocephin; neurogenic bladder, status post suprapubic catheter; normal pressure hydrocephalus with BEARINGIZER shunt with deteriorating neuro function; type 2 diabetes with hyperglycemia; paroxysmal atrial fibrillation; hypertension; candiduria, present on admission. HISTORY: Hypertension type 2 diabetes, paroxysmal atrial fibrillation, NPH. SURGICAL HISTORY: BEARINGIZER shunt for NPH 3 months ago, suprapubic catheter for neurogenic bladder, and distant back surgery. FAMILY HISTORY: Diabetes. SOCIAL HISTORY: Noncontributory. HOSPITAL COURSE: A 68-year-old male with loss of IV [facility]. He had a BEARINGIZER shunt placed in January for NPH, has neurogenic bladder, status post suprapubic catheter placement. He had a UTI and was getting IV Rocephin. Family notes that ataxia has returned and getting worse for 3 weeks. felt like the patient was not getting good care at the prison facility, so he returned to the hospital and will discharge home with another week of fluconazole 200 mg daily. His urine culture came back positive for yeast. Home health was set up. The patient will discharge home with . Vital signs stable, the patient afebrile. Dictated by Rosalva Cole NP MD RONN Kwan/SOWMYA /[id number]
== END 2019-05-08 11:30 | disposition home health service (06) | DRG 698 ==
LOC: ER 10:46 → ERHOLD 12:46 → MED/SURG3 15:31
PROVIDERS: ADMIT Internal Medicine; ATTEND Internal Medicine
DX: T83.510A Infection and inflammatory reaction due to cystostomy catheter, initial encounter (principal); A41.9 Sepsis, unspecified organism; G93.41 Metabolic encephalopathy; G91.2 (Idiopathic) normal pressure hydrocephalus; B37.49 Other urogenital candidiasis; I10 Essential (primary) hypertension; Z82.49 Family history of ischemic heart disease and other diseases of the circulatory system; Z88.8 Allergy status to other drugs, medicaments and biological substances; I48.0 Paroxysmal atrial fibrillation; N31.9 Neuromuscular dysfunction of bladder, unspecified; E11.65 Type 2 diabetes mellitus with hyperglycemia; Z95.828 Presence of other vascular implants and grafts; N47.1 Phimosis; R27.0 Ataxia, unspecified; Z79.84 Long term (current) use of oral hypoglycemic drugs
CPT/HCPCS: 36415; 80048; 80053; 81001; 82948; 83735; 84100; 85025; 87086; 96361; 97139; 99284; J0360; J0696; J1817; J7030

== ENCOUNTER 2019-08-24 19:06 | Emergency (ER) | payer MEDICARE ==
[~2019-08-24] VITALS: Ht 177.8 cm; Wt 92.5 kg
[~2019-08-24 19:06] MED LIST changes: +DIFLUCAN100 MG PO; +NIFEDIPINE ER30 M1 PO
[2019-08-24] MEDS ORDERED: LIDOCAINE 4% PATCH TP ONE (20:00)
[2019-08-24] MEDS ORDERED: HYDROCODONE/APAP 5MG-325MG TAB PO ONE (20:00)
--- NOTE | 2019-08-24 20:01 | NUR ---
PT STATES HE TOOK X1 NORCO 10MG AT 1600. ENP NOTIFIED AND AWARE.
[2019-08-24] MEDS ORDERED: KETOROLAC TROMETHAMINE 30 MG/ML VIAL IM STA (20:08)
[2019-08-24] MEDS ORDERED: KETOROLAC TROMETHAMINE 30 MG/ML VIAL ONE (20:08)
--- NOTE | 2019-08-24 21:35 | Diagnostic Imaging Report ---
EXAMINATION: X-ray right RIBS 5 views INDICATION: Fall, right rib pain COMPARISON: Abdominal CT 04/27/2019, chest x-ray 04/27/2019 FINDINGS: TUBES and LINES: Partially visualized ventriculoperitoneal shunt with tip in the right abdomen. LUNGS: Normal lung volumes. Lungs are clear. No consolidations. PLEURA: No pleural effusion or pneumothorax. HEART AND MEDIASTINUM: The cardiomediastinal silhouette is unremarkable. BONES AND SOFT TISSUES: No acute osseous lesion. Soft tissues are unremarkable. Fixation hardware in the lumbar spine. Degenerative changes in the right shoulder and spine. UPPER ABDOMEN: No free air under the diaphragm. IMPRESSION: No acute thoracic radiographic abnormality. No acute displaced rib fracture. Degenerative changes in the right shoulder. Signed by: Ravin Whiting DO on 08/24/2019 9:32 PM
== END 2019-08-24 22:21 | disposition home or self-care (01) ==
LOC: ER 19:06
DX: S20.211A Contusion of right front wall of thorax, initial encounter (principal); W01.198A Fall on same level from slipping, tripping and stumbling with subsequent striking against other object, initial encounter; Y92.002 Bathroom of unspecified non-institutional (private) residence as the place of occurrence of the external cause; I10 Essential (primary) hypertension; E11.9 Type 2 diabetes mellitus without complications; I25.10 Atherosclerotic heart disease of native coronary artery without angina pectoris
CPT/HCPCS: 71101; 99283; J1885

== ENCOUNTER 2020-01-28 20:27 | Emergency (ER) | payer MEDICARE ==
[~2020-01-28] VITALS: Ht 177.8 cm; Wt 92.5 kg
[2020-01-28 21:30] LABS: BASOPHILS # (AUTO) 0.1 (0.0-0.1); BASOPHILS % 0.5 % (0.0-1.0); EOSINOPHILS # (AUTO) 0.3 (0.0-0.4); EOSINOPHILS % 1.2 % (0.0-6.0); HEMATOCRIT 41.5 % (38.2-49.6); HEMOGLOBIN 13.9 g/dL (14.0-18.0); LYMPHOCYTES # (AUTO) 3.4 (1.0-3.2); LYMPHOCYTES % 15.8 % (18.0-39.1); MEAN CORPUSCULAR HGB CONC 33.5 g/dL (31-35); MEAN CORPUSCULAR VOLUME 92.4 fL (81-99); MONOCYTES % 9.2 % (4.4-11.3); NEUTROPHILS # (AUTO) 15.6 (2.1-6.9); NEUTROPHILS % 72.7 % (38.7-80.0); PLATELET COUNT 272 x10e3/uL (140-360); RED BLOOD COUNT 4.49 x10e6/uL (4.3-5.7); RED CELL DISTRIBUTION WIDTH 12.7 % (11.7-14.4)
--- OUTSIDE RECORDS SUMMARY | 2020-01-28 21:35 | XMS REPORT ---
Author Author VU Egan Organization Unknown Address Unknown Phone Care Team Providers Care Kosher Inspector Name Role Phone EganJody PP Reason for Referral No Reason for Referral was given. History of Present Illness No HPI available. Problems * Normal Routine History And Physical Senior Citizen (65-80) (V70.0); ( Active) * Diabetes Mellitus (250.00); (Active) * Hypertension (401.9); (Active) * Dyslipidemia (272.4); (Active) Medication * HumuLIN N 100 UNIT/ML Subcutaneous Suspension; 20 units twice a day; Start Date: 06/29/2012 (Active) * HumuLIN R 100 UNIT/ML Injection Solution; 15 units with each meal; Start Date: 06/29/2012 (Active) * MetFORMIN HCl 500 MG Oral Tablet; 2 tabs twice a day; Start Date: 06/29/2012 (Active) * Lisinopril 10 MG Oral Tablet; 1 a day; Start Date: 06/29/2012 (Active) * Simvastatin 40 MG Oral Tablet; 1 tab at night; Start Date: 06/29/2012 (Active) Allergies and Adverse Reactions * Soma TABS (Active) Past Medical History * History of Asthma (493.90); (Resolved) * History of Fatigue (780.79); (Resolved) Procedures Procedure Procedure Date Date Completed Status Back Surgery - - Resolved Family History * Family history of Diabetes Mellitus (V18.0); (Active) * Family history of Coronary Artery Disease (V17.49); (Active) * Family history of Hypertension (V17.49); (Active) * Family history of Cancer (Active) Social History * Marital History - (Active) * Never A Smoker (Active) * Never Drank Alcohol (Active) * No History of Drug Use (Denied) * Occupation: Retired (Active) Advance Directives * No Advance Directives available. Encounters * AUDIT 08/13/2013
--- OUTSIDE RECORDS SUMMARY | 2020-01-28 21:35 | XMS REPORT | Clinical Summary ---
Author Author [facility] Organization [employer] [facility] Address Unknown Phone Unavailable Care Team Providers Care Grain Packer Name Role Phone Jeremy Olivo MD PCP Allergies Comments Active Allergy Reactions Severity Noted Date Carisoprodol Rash Low 08/15/2017 Medications End Date Status Medication Sig Dispensed Refills Start Date Active atorvastatin (LIPITOR) 20 Take 20 mg by 0 02/2 6/201 MG tablet mouth daily. 8 Active DULoxetine (CYMBALTA) 60 Take 60 mg by 0 / /201 MG capsule mouth daily. 8 Active flecainide (TAMBOCOR) 100 Take 100 mg 0 02/1 9/201 MG tablet by mouth 8 every 12 (twelve) hours. Active metFORMIN (GLUCOPHAGE) Take 1,000 mg 0 /16/2 01 1,000 mg tablet by mouth 2 8 (two) times a day. Active ramipril (ALTACE) 5 MG Take 5 mg by 0 /14/2 01 capsule mouth daily. 8 Active tamsulosin (FLOMAX) [...] guaiFENesin (MUCINEX) 600 Take 1 tablet 0 08/2 9/201 mg tablet extended (600 mg 8 release 12hr total) by mouth 2 (two) times a day as needed (cough). 02/13/2019 gabapentin (NEURONTIN) Take 2 180 capsule 0 300 mg capsule capsules (600 8 mg total) by mouth 3 (three) times a day. 02/14/2019 amLODIPine (NORVASC) 5 mg Take 1 tablet 30 tablet 0 tablet (5 mg total) 8 by mouth daily. 02/13/2019 sennosides-docusate Take 1 tablet 60 tablet 0 01/17 sodium (SENOKOT-S) 8.6-50 by mouth 2 8 mg per tablet (two) times a day. 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 Family History Medical History Relation Name Comments [...] Health Maintenance Due Date Last Done Comments DIABETIC RETINAL EYE EXAM 1948 DIABETIC FOOT EXAM 1958 URINE MICROALBUMIN 1958 COLONOSCOPY SCREENING 1998 SHINGLES VACCINES (#1) 1998 65+ PNEUMOCOCCAL VACCINE 2013 06/24/2014 (2 of 2 - PPSV23) INFLUENZA VACCINE 02/17/2020 03/24/2015 Implants Device Identifier Shelf Expiration Date Model / Serial / L ot Implanted Type Area Manufactur er Clips Description:CLIPS IN SPINE Results Not on fileafter 01/27/2019 Insurance Type Payer Benefit Subscriber ID Effective Phone Address Plan / Dates Group Medicare MEDICARE MEDICARE xxxxxxxxxxx 2013-P [place], PART A AND resent [place] B Commercial AARP AARP xxxxxxxxxx [id number] SUPPLEMENT resent Advance Directives For more information, please contact: [phone] Patient [place] Product Owner Explanation Type Date Recorded Advance Directives, 12/31/2017 5:27 PM Living Will and Medical Power of Forming Department Supervisor Date Inactivated Comments Code Status Date Activated 02/13/2018 8:43 PM Full Code 02/07/2018 7:34 PM Code Status decision reached by: Patient 02/07/2018 7:34 PM Full Code 02/07/2018 7:24 PM Code Status decision reached by: Patient 01/08/2018 9:35 PM Full Code 12/31/2017 6:56 PM Code Status decision reached by: Patient
--- OUTSIDE RECORDS SUMMARY | 2020-01-28 21:35 | XMS REPORT ---
Author Author VU TORRES Organization Unknown Address Unknown Phone Care Team Providers Care Assistant Professor Of Chemistry Name Role Phone DAHLIA TORRES PP Reason for Referral No Reason for Referral was given. History of Present Illness No HPI available. Problems * Normal Routine History And Physical Adult (V70.0); (Active) * Diabetes Mellitus (250.00); (Active) * Hypertension [...] History * History of Asthma (493.90); (Resolved) Procedures Procedure Procedure Date Date Completed Status Back Surgery - - Resolved Family History * Family history of Diabetes Mellitus (V18.0); (Active) * Family history of Coronary Artery Disease (V17.49); (Active) * Family history of Hypertension (V17.49); (Active) Social History * Marital History - (Active) * Never A Smoker (Active) * Never Drank Alcohol (Active) Advance Directives * No Advance Directives available. Encounters * AUDIT 06/29/2012 * [facility], Provider: DAHLIA TORRES, Status: Pen, Time: 12:00 PM 07/18/2012
--- OUTSIDE RECORDS SUMMARY | 2020-01-28 21:35 | XMS REPORT | Continuity of Care Document ---
Author Author VU Ortiz Organization [employer] Address Unknown Phone Unavailable Care Team Providers Care Lathe Puller Name Role Phone [employer] Unavailable Un available Problems Problem Status Onset Date Classification Date Reported Comments Source M48.062 Active 01/14/2019 [facility] Sacrococcygeal disorders, not elsewhere classified 04/19/2018 10/20/2018 [facility] M48.061, M43.16 Active 03/31/2018 [facility] M48.061, M43.16 BACK PAIN Acti ve 03/31/2018 [facility] [employer] M48.061, M43.16 LOW BACK PAIN Active 01/29/2018 [employer] STENOSIS Active 10/31/2017 [facility] [employer] M43.16, M48.061 Active 10/16/2017 [facility] [employer] Culture positive for methicillin resista nt Staphylococcus aureus (finding) Active 06/18/2007 Problem 10/20/2018 from cellulitis in [...] [facility] HTN (hypertension) Active Problem 02/03/2014 [facility] Cough Active Diagnosis 04/05/2013 [facility] Obesity Active Diagnosis 07/10/2013 [facility] Bronchitis Active Diagnosis 07/10/2013 [facility] Positive CARLITO (antinuclear antibody) Active Diagnosis 0 07/10/2013 [facility] Rib pain on left side Active Diagnosis 10/03/2013 [facility] Encounter for medication counseling Active Diagnosis 0 06/25/2013 [facility] Right ankle pain Active Diagnosis 06/25/2013 [facility] Depression Active Diagnosis 06/25/2013 [facility] Tachycardia Active Diagnosis 06/25/2013 [facility] Diabetes Mellitus Active 08/13/2013 [facility] Hypertension Active 08/13/2013 [facility] Dyslipidemia Active 08/13/2013 [facility] Asthma (disorder) Active Problem 10/20/2018 last attack 3 yrs ago. [facility] Depressive disorder (disorder) Active Problem 10/2018 [facility] Gastroesophageal reflux disease (disorder) Active Problem 10/20/2018 [facility] Hypertensive disorder, systemic arterial (disorder) Active Problem 10/20/2018 [facility] Obesity (disorder) Active Problem 10/20/2018 [facility] Paroxysmal atrial fibrillation (disorder) Active Problem 10/20/2018 [facility] Diabetes mellitus type 2 (disorder) Active Problem 10/2018 [facility] Viral hepatitis C (disorder) R esolved Problem 10/2018 [facility] Diabetes mellitus (disorder) A ctive Problem 05/2018 [facility] Spinal stenosis, lumbosacral region 10/20/2018 [facility] Spondylolisthesis, lumbar region 10/20/2018 [facility] Arthrodesis status 10/20/2018 [facility] SPONDYLOLISTHESIS, LUMBAR REGION Active [facility] SPINAL STENOSIS, LUMBAR REGION WITHOUT N Active [facility] SPINAL STENOSIS, LUMBAR REGION WITH NEUR Active [facility] Medications Medication Details Route Status Patient Instructions Ordering Provider Order Date Source tizanidine 4 MG Oral Capsule [Zanaflex] 4 mg = 1 cap, PO, TID, # 40 cap, 0 Refill(s) Active 11/21/2017 [facility] Acetaminophen 325 MG / Hydrocodone Mimi trate 10 MG Oral Tablet [[place] 10/325] 1-2 tab, PO, Q4-6H, PRN Pain, X 7 day, # 80 tab, 0 Refill(s) Active 11/21/2017 [facility] {21 (Methylprednisolone 4 MG Oral Tablet [Medrol]) } Pack [Medrol Dosepak] See Instructions, PO, Take by mouth as d irected on label., # 1 Pack, 0 Refill(s) Active 11/21/2017 [facility] Docusate Sodium 100 MG Oral Capsule 100 mg = 1 cap, PO, BID, # 30 cap, 0 Refill(s) Active 11/21/2017 [facility] Flomax Notes: (Same As: Flomax ) "Do Not Crush" No Longer Active 11/21/2017 [facility] Acetaminophen 325 MG / Hydrocodone Mimi trate 10 MG Oral Tablet 1 tab, PO, Q6H, PRN Pain Score 4-6, # 60 tab, 0 Refill(s), given to patient Active 11/20/2017 [facility] Regular Insulin, Human 100 UNT/ML Injectable Solution 30 unit, SUB-Q, TID-Before Meals, 0 Refill(s) Active 11/20/2017 [facility] insulin isophane (NPH) 100 units/mL odessa n recombinant subcutaneous suspension 30 unit, SUB-Q, BID, 0 Refill(s) Active 11/20/2017 [facility] Omeprazole Notes: Take 1 hour before or 2 hours after meal; Non-Formulary Drug "Do Not Crush" (Same as: Prilosec) No Longer Active 11/20/2017 [facility] sennosides, PENITENTIARY Notes: (Same a s: Senokot) No Longer Active 11/20/2017 [facility] Ramipril Notes: (Same as:Altac e) No Longer Active 11/20/2017 [facility] Milk of Magnesia Notes: (Same as: Milk of Magnesia, MOM) No Longer Active 11/20/2017 [facility] Protonix Notes: Tablet should not be chewed or crushed. (Same as: Protonix) No Longer Active 11/20/2017 [facility] Flecainide Notes: (Same as: Ta mbocor) Inactive 11/20/2017 [facility] Flecainide 100mg Flecainide 10 0mg, 1 tab, Drug form: MISC, Route: PO, Q12H, 11/19/17 21:00:00 CDT, Duration: 30 day, Stop date: 12/19/17 9:00:00 CDT No Longer Active 11/20/2017 [facility] insulin regular 100 units/mL human recombinant 60 units) WASTE: F/P - Black; E - Municipal Trash Bin Stable for 28 days at room temperature Expires in days from Date Inactive 11/19/2017 [facility] Cefazolin Notes: Same as: Ancef No Longer Active 11/19/2017 [facility] Novolin N Notes: Roll in palms of hands gently; Do not shake vigorously. (Same as: Humulin N) Do not hold insulin without contacting prescriber WASTE: F/P - Black; E - Municipal Trash Bin Stable for 28 days at room temperature Expires in days from Date No Longer Active 11/19/2017 [facility] Docusate Notes: (Same as: Cola ce) (Do Not Crush) Inactive 11/19/2017 [facility] Docusate Sodium 100 MG Oral Capsule Notes: (Same as: Colace) (Do Not Crush) No Longer Active 11/19/2017 [facility] Zanaflex Notes: (Same As: Ken flex) No Longer Active 11/19/2017 [facility] Dexamethasone Notes: MEDIC ATION WASTE Product Size: 10 mg Product Wasted: ___ mg No Longer Active 11/19/2017 [facility] normal saline 0.9% IV 1,000 mL 1,000 mL, Rate: 75 ml/hr, Infuse over: 13.3 hr, Route: IV, Dosing Weight 105.909 kg, Total Volume: 1,000, Start date: 11/19/17 14:32:00 CDT, Duration: 30 day, Stop date: 12/19/17 14:31:00 CDT, 2.31, m2 No Longer Active 11/19/2017 [facility] Novolin R 60 units) WASTE: F/P - Black; E - Municipal Trash Bin Stable for 28 days at room temperature Expires in days from Date No Longer Active 11/19/2017 [facility] Promethazine Notes: Do not giv e IV push. (Same as: Phenergan) Inactive 11/19/2017 [facility] Meperidine Notes: (Same as: De merol) "Use Precaution in Elderly, Seizure disorders, and Renal impairment" Inactive 11/19/2017 [facility] Flumazenil Notes: (Same as: Ro mazicon) Inactive 11/19/2017 [facility] Naloxone Notes: Same as Narcan Inactive 11/19/2017 [facility] Hydromorphone Notes: Same as D ilaudid Inactive 11/19/2017 [facility] Acetaminophen Notes: Max aceta minophen 4000 mg/day (4 gm/day). (Same as: Tylenol Extra Strength) Inactive 11/19/2017 [facility] Morphine Notes: (Same as:MORPh ine Sulfate) Inactive 11/19/2017 [facility] Hydralazine Notes: (Same as: A presoline) Push over 5 minutes Inactive 11/19/2017 [facility] Labetalol 10 mg, 2 mL, Route: IVP, Drug form: INJ, Q5Min, Dosing Weight 105.909, kg, PRN Elevated BP, Start date: 11/19/17 11:30:00 CDT, Duration: 5 doses or times, Stop date: 11/19/17 22:00:00 CDT Inactive 11/19/2017 [facility] glycopyrrolate (ANES) Route: I V, Drug form: INJ, ONCE, Stop date: 11/19/17 11:21:00 CDT Inactive 11/19/2017 [facility] neostigmine (ANES) Route: IV, Drug form: INJ, ONCE, Stop date: 11/19/17 11:21:00 CDT Inactive 11/19/2017 [facility] Hydromorphone Notes: (Same as: Dilaudid) conc = 0.5 mg/ml Hydromorphone FILAMENT WELDER Dose: ;Delay: ;Basal: No Longer Active 11/19/2017 [facility] Naloxone Notes: Same as Narcan No Longer Active 11/19/2017 [facility] D5W 1/2NS + KCL 20mEq/L 1000ml (Premix) 1,000 mL Notes: PREMIX IV - Do Not Alter WASTE: F/P - Sink; E - Municipal Trash Bin Inactive 11/19/2017 [facility] Saline Flush 0.9% Notes: Same as: BD Posiflush Sterile No Longer Active 11/19/2017 [facility] Trazodone Notes: (Same As: Skip yrel) No Longer Active 11/19/2017 [facility] Acetaminophen 325 MG / Hydrocodone Mimi trate 10 MG Oral Tablet Notes: Do not exceed 4gm/day of acetamin ophen. (Same as: [place] 325/10) No Longer Active 11/19/2017 [facility] Diphenhydramine Notes: (Same a s: Benadryl) No Longer Active 11/19/2017 [facility] Dulcolax Laxative Notes: (Same As: Dulcolax, Correctol) (Do Not Crush) "Do Not Crush" No Longer Active 11/19/2017 [facility] Aluminum Hydroxide 40 MG/ML / Magnesium Hydroxide 40 MG/ML / Simethicone 4 MG/ML Oral Suspension Notes: (aluminum hydroxide-magnesium hyd- simethicone [phone]/5ml 30 ml ud GEO) No Longer Active 11/19/2017 [facility] ePHEDrine (ANES) Route: IV, Dr ug form: INJ, ONCE, Stop date: 11/19/17 10:47:00 CDT Inactive 11/19/2017 [facility] phenylephrine (ANES) Route: IV , Drug form: INJ, ONCE, Stop date: 11/19/17 10:47:00 CDT Inactive 11/19/2017 [facility] rocuronium (ANES) Route: IV, D rug form: INJ, ONCE, Stop date: 11/19/17 10:42:00 CDT Inactive 11/19/2017 [facility] dexamethasone (ANES) Route: IV , Drug form: INJ, ONCE, Stop date: 11/19/17 10:42:00 CDT Inactive 11/19/2017 [facility] lidocaine (ANES) Route: IV, Dr ug form: INJ, ONCE, Stop date: 11/19/17 10:42:00 CDT Inactive 11/19/2017 [facility] propofol (ANES) Route: IV, Corwin g form: INJ, ONCE, Stop date: 11/19/17 10:42:00 CDT Inactive 11/19/2017 [facility] succinylcholine (ANES) Route: IV, Drug form: INJ, ONCE, Stop date: 11/19/17 10:42:00 CDT Inactive 11/19/2017 [facility] fentaNYL (ANES) Route: IV, Corwin g form: INJ, ONCE, Stop date: 11/19/17 10:42:00 CDT Inactive 11/19/2017 [facility] midazolam (ANES) Route: IV, Dr beasley form: SOLN, ONCE, Stop date: 11/19/17 10:42:00 CDT Inactive 11/19/2017 [facility] acetaminophen (ANES) 10 mg Rou te: IV, Drug form: INJ, Start date: 11/19/17 10:40:00 CDT, Stop date: 11/19/17 11:40:00 CDT Inactive 11/19/2017 [facility] ceFAZolin (ANES) Route: IV, Dr beasley form: INJ, ONCE, Stop date: 11/19/17 10:27:00 CDT Inactive 11/19/2017 [facility] propofol (ANES) 10 mg Route: I V, Drug form: INJ, Start date: 11/19/17 9:55:00 CDT, Stop date: 11/19/17 10:55:00 CDT Inactive 11/19/2017 [facility] Lactated Ringers Injection IV (ANES) 1000 mL Route: IV, Total Volume: 1,000, Start date: 11/19/17 9:23:00 CDT, Stop date: 11/19/17 10:23:00 CDT Inactive 11/19/2017 [facility] duloxetine Notes: (Same as: Cy mbalta) (Do Not Crush) No Longer Active 11/19/2017 [facility] Amlodipine Notes: (Same as: No rvasc) No Longer Active 11/19/2017 [facility] Albuterol 0.83 MG/ML Inhalant Solution Notes: SEE RT DOCUMENTATION (Same as: Proventil) No [...] Active 11/19/2017 [facility] Insulin Lispro Notes: (Same as : Humalog ) Roll in palms of hands gently; Do not shake `vigorously. "Single Patient Use Only " WASTE: F/P - Black; E - Municipal Trash Bin Stable for 28 days at room temp erature. Expires in days from Date No Longer Active 11/19/2017 [facility] Benadryl Notes: (Same as: [place] dryl) Inactive 11/19/2017 [facility] Trazodone Hydrochloride 50 MG Oral Tablet Notes: (Same As: Desyrel) No Longer Active 11/19/2017 [facility] Lactated Ringers IV 1,000 mL 1 ,000 mL, Rate: 40 ml/hr, Infuse over: 25 hr, Route: IV, Dosing Weight 105.909 kg, Total Volume: 1,000, Start date: 11/19/17 8:04:00 CDT, Duration: 30 day, Stop date: 12/19/17 8:03:00 CDT, 2.31, m2 Inactive 11/19/2017 [facility] Omeprazole 20 MG Enteric Coated Tablet [Prilosec] 20 mg = 1 tab, PO, Daily, # 30 tab, 0 Refill(s) Active 11/06/2017 [facility] NPH Insulin, Human 100 UNT/ML Injectable Suspension [Novolin N] 30 unit, SUB-Q, BID, # 10 ml, 0 Refill(s) No Longer Active 11/06/2017 [facility] Regular Insulin, Human 100 UNT/ML Inject able Solution [Novolin R] 30 unit, SUB-Q, TID-Before Meals, # 10 m L, 0 Refill(s) No Longer Active 11/06/2017 [facility] Home Medication PO, Daily, Ref ill(s) 0 No Longer Active 11/06/2017 [facility] ramipril 5 mg oral capsule 5 m g = 1 cap, PO, Daily, # 30 cap, 1 Refill(s) Active 11/06/2017 [facility] Metformin 1,000 mg, PO, BID, 0 Refill(s) Active 11/06/2017 [facility] Aspirin 325 mg, PO, Daily, 0 R efill(s) No Longer Active 11/06/2017 [facility] DULoxetine 60 mg oral delayed release capsule 60 mg = 1 cap, PO, Daily, # 30 cap, 0 Refill(s) Active 11/06/2017 [facility] Amlodipine 5 mg, PO, Daily, 0 Refill(s) Active 11/06/2017 [facility] flecainide 100 mg oral tablet 100 mg = 1 tab, PO, Q12H, # 180 tab, 0 Refill(s) Active 11/06/2017 [facility] Vicodin 1 tablet Orally Active 5-300 MG Orally every 6 hrs prn rib pain [facility] 09/23/2013 [facility] Ipratropium [place] as directed Inhalation Active 0.02 % Inhalation every 4 hours [facility] 06/26/2013 [facility] Norel CS 1 teaspoon Orally Active 10-4-12.5 MG/5ML Orally three times a day (tid) [facility] 06/26/2013 [facility] ProAir HFA 2 puffs as needed Inhalation Active 108 (90 Base) MCG/ACT Inhalation every 4 -6 hrs [facility] 06/23/2013 [facility] Zithromax Z-Landry 2 tablets on the first day, then 1 tablet daily for 4 days Orally Active 250 MG Orally Once a day [facility] 06/23/2013 [facility] Bystolic 1 tablet Orally Active 10 mg Orally Once a day [facility] 06/17/2013 [facility] Cymbalta 1 capsule Orally Active 60 MG Orally Once a day (patient needs to be seen before next refill) [facility] 05/09/2013 [facility] Cymbalta 1 capsule Orally No Longer Active 30 mg Orally Once a day [place] 02/13/2013 [facility] Tramadol HCl 1 tablet as needed Orally Active 50 mg Orally every 6 hrs [place] 02/13/2013 [facility] Cymbalta 1 capsule Orally Active 60 MG Orally Once a day [place] 02/13/2013 [facility] Amlodipine Besylate 1 tablet Orally Active 10 mg Orally Once a day [place] 02/13/2013 [facility] HumuLIN N 100 UNIT/ML Subcutaneous Suspension ; Start Date: 06/29/2012 (Active) Active 06/29/2012 [facility] HumuLIN R 100 UNIT/ML Injection Solution ; Start Date: 06/29/2012 (Active) Active 06/29/2012 [facility] MetFORMIN HCl 500 MG Oral Tablet ; Start Date: 06/29/2012 (Active) Active 06/29/2012 [facility] Lisinopril 10 MG Oral Tablet ; Start Date: 06/29/2012 (Active) Active 06/29/2012 [facility] Simvastatin 40 MG Oral Tablet ; Start Date: 06/29/2012 (Active) Active 06/29/2012 [facility] Novolin N 23 units Subcutaneous Active 100 UNIT/ML Subcutaneou s AM and PM [facility] Metformin HCl 2 tablet Orally Active 500 mg Orally Twice a d ay [place] Simvastatin 1 tablet Orally No Longer Active 40 mg Orally Once a day [facility] Novolin R 23 units Injection Active 100 UNIT/ML Injection T ID with meals [facility] Lisinopril 1 tablet Orally No Longer Active 10 mg Orally Once a day [facility] Metformin HCl TAKE TWO TABLETS BY MOUTH TWICE DAILY NA Active 50 0 [facility] Amlodipine Besylate TAKE ONE T ABLET BY MOUTH EVERY DAY NA Active 10MG [facility] Aspirin 1 tablet Orally Active 325 MG Orally Once a da y [facility] Allergies, Adverse Reactions, Alerts Substance Category Reaction Severity Reaction type Status Date Reported Comments Source Soma Assertion rash Drug allergy Active [facility] Soma TABS drug allergy drug allergy Active [facility] lincomycin Assertion rash Drug allergy [facility] Zofran<sup>1</sup> Assertion didn't work Propensity to adverse reactions to drug Active and Patient say that th e Zofran made him Vomit [facility] Motrin Assertion rash Drug allergy Active [facility] oxyCODONE Assertion severe N/V Propensity to adverse reacti ons to drug Active [facility] Immunizations No Data Provided for This Section Results Order Name Results Value Reference Range Date Interpretation Comments Source ELECTROLYTES POC AGAP 16.0 10.0 - 20.0 04/02/2018 [facility] ELECTROLYTES POC Hematocrit 42. 0 42.0 - 54.0 04/02/2018 [facility] [...] 04/02/2018 [facility] ELECTROLYTES POC Hemoglobin 14. 3 14.0 - 18.0 04/02/2018 [facility] [...] 11/21/2017 [facility] HEMATOLOGY RBC Morph Blessing l (11/21/17 5:18 AM) 11/21/2017 [facility] HEMATOLOGY Plt Morph Blessing l (11/21/17 5:18 AM) 11/21/2017 [facility] [...] 135 - 145 10/24/2017 [facility] Pathology Reports No Data Provided for This Section Diagnostic Reports Report Value Date Source Spine lumbar myelogram CT EXAM : CT MYELOGRAM LUMBAR SPINE DATE: 04/02/2018 12:49 PM CDT INDICATION: spinal stenosis, lumbosacral region. spondylolisheis, lumbar region. - ct lumbar ADDITIONAL INFORMATION: Status post L2-L3 laminectomy, facetectomy, foraminotomy, decompression of the 2 and 3 nerve roots and central canal and L2- L3 posterior spinal fusion with spine Dixie pedicle screws segmental instrumentation, allograft local bone [...] seen. IMPRESSION: 1. Persistent impingement of the descen ding left S2 nerve root secondary to protrusion [...] of hardware. 3. Multilevel moderate to severe spondy lotic changes of the lumbosacral spine worse in the lower lumbar spine. 4. Paraspinal muscle fatty atrophy in t he lower lumbar spine. 04/02/2018 [facility] Spine lumbar myelogram DX EXAM : SPINE LUMBAR MYELOGRAM DX Date: 04/02/2018 1334 hours PREPROCEDURE DIAGNOSIS: Lower back pain POST PROCEDURE DIAGNOSIS: Same DRAGGER: Dahlia Koehler M.D. COAL DUMPING EQUIPMENT OPERATOR: Agustin Lombardi M.D ANESTHESIA: Local anesthesia [...] for injection of intrathecal contrast material. 04/02/2018 [facility] Spine lumbar 2 or 3 views DX E XAM: XR LUMBAR SPINE 2 VIEWS DATE: 11/21/2017 [...] IMPRESSION: 1. Posterior fusion hardware L3-S1 and L 2-3 appear unchanged with adequate alignment. 11/21/2017 [facility] lumbar single view DX EX AM: XR LUMBAR SPINE 1 VIEW DATE: 11/19/2017 1015 hours INDICATION: L2-L3 posterior spinal fusion COMPARISON: Lumbar myelogram 10/24/2017 TECHNIQUE: Lateral intraoperative radiographs of the lumbar spine FINDINGS: Redemonstrated is posterior fusion of L3-S1 with laminar hooks. There has been posterior transpedicular fixation of L2-L3. There is no perihardware fracture. IMPRESSION: Satisfactory alignment of L2-L3 posterior fixation hardware. 11/19/2017 [facility] Spine lumbar myelogram CT EXAM : MYELOGRAM LUMBAR SPINE EXAM: CT MYELOGRAM LUMBAR [...] preserved. IMPRESSION: 1. Postoperative changes of spinal deco mpression at L4 and L5, with posterior fixation from L3 through S1. 2. Severe constriction of the thecal sa c and crowding of the roots of the cauda equina at L2-L3 as a result of bulging of the disc, hypertrophy of the facet joints, and hypertrophy and calcification of the ligamenta flava. 3. Right lateral displacement of the th ecal sac at the level of S1 due to the hardware, without significant compressive effect on the nerve roots. 10/24/2017 [facility] Spine lumbar myelogram DX EXAM : MYELOGRAM LUMBAR SPINE EXAM: CT MYELOGRAM LUMBAR [...] preserved. IMPRESSION: 1. Postoperative changes of spinal deco mpression at L4 and L5, with posterior fixation from L3 through S1. 2. Severe constriction of the thecal sa c and crowding of the roots of the cauda equina at L2-L3 as a result of bulging of the disc, hypertrophy of the facet joints, and hypertrophy and calcification of the ligamenta flava. 3. Right lateral displacement of the th ecal sac at the level of S1 due to the hardware, without significant compressive effect on the nerve roots. 10/24/2017 [facility] Consultation Notes No Data Provided for This [...] [facility] Systolic (mm Hg) 117 04/02/2018 [facility] Diastolic (mm Hg) 62 04/02/2018 [facility] Respitory Rate 18 04/02/2018 [facility] Systolic (mm Hg) 108 04/02/2018 [facility] Diastolic (mm Hg) 61 04/02/2018 [facility] Heart Rate 65 04/02/2018 [facility] BMI Calculated 28.47 04/02/2018 [facility] Weight 90 1 [facility] Height 177.8 cm 04/02/2018 [facility] Systolic (mm Hg) 139 11/22/2017 [facility] Diastolic (mm Hg) 86 11/22/2017 [facility] Respitory Rate 16 11/22/2017 [...] [facility] Heart Rate 75 10/24/2017 [facility] Systolic (mm Hg) 127 [...] [facility] Height 70 0 09/23/2013 [facility] Heart Rate 70 09/23/2013 [facility] Diastolic (mm Hg) 70 09/23/2013 [facility] Systolic (mm Hg) 1130 09/23/2013 [facility] Weight 232 06/26/2013 [facility] Height 70 0 06/26/2013 [facility] Temperature Oral (F) 98.6 F 06/26/2013 [facility] Heart Rate 70 06/26/2013 [facility] Diastolic (mm Hg) 72 06/26/2013 [facility] Systolic (mm Hg) 120 06/26/2013 [facility] Weight 236 06/17/2013 [facility] Height 70 1 [facility] Temperature Oral (F) 98.4 F 06/17/2013 [facility] Heart Rate 71 06/17/2013 [facility] Diastolic (mm Hg) 88 06/17/2013 [facility] Systolic (mm Hg) 142 06/17/2013 [facility] Weight 237 03/04/2013 [facility] Height 70 0 03/04/2013 [facility] Temperature Oral (F) 98.6 F 03/04/2013 [facility] Heart Rate 74 03/04/2013 [facility] Diastolic (mm Hg) 70 03/04/2013 [facility] Systolic (mm Hg) 115 03/04/2013 [facility] Weight 236 02/13/2013 [facility] Height 70 0 02/13/2013 [facility] Heart Rate 68 02/13/2013 [facility] Diastolic (mm Hg) 76 02/13/2013 [facility] Systolic (mm Hg) 136 02/13/2013 [facility] Weight 228 01/17/2013 [facility] Height 70 0 01/17/2013 [facility] [...] Provider ADM Date DC Date Status Source AUDIT [id number] 06/29/2012 06/29/2012 [facility] Dimitris WATERS lety: DAHLIA TORRES, Status: Pen, Time: 12:00 PM [id number] 07/18/19 13 06/29/2012 [facility] MOVING PICTURE PRODUCER- FATIGUE [id number] 01/17/2013 01/17/2013 [facility] MOVING PICTURE PRODUCER- FATIGUE [id number] 01/17/2013 01/17/2013 [facility] MOVING PICTURE PRODUCER- FATIGUE [id number] 01/17/2013 01/17/2013 [facility] MOVING PICTURE PRODUCER- FATIGUE [id number] 01/17/2013 01/17/2013 [facility] MOVING PICTURE PRODUCER- FATIGUE [id number] 01/17/2013 01/17/2013 [facility] MOVING PICTURE PRODUCER- FATIGUE [id number] 01/17/2013 01/17/2013 [facility] MOVING PICTURE PRODUCER- FATIGUE [id number] 01/17/2013 01/17/2013 [facility] MOVING PICTURE PRODUCER- FATIGUE [id number] 01/17/2013 01/17/2013 [facility] MOVING PICTURE PRODUCER- FATIGUE [id number] 01/17/2013 01/17/2013 [facility] MOVING PICTURE PRODUCER- FATIGUE [id number] 01/17/2013 01/17/2013 [facility] MOVING PICTURE PRODUCER- FATIGUE [id number] 01/17/2013 01/17/2013 [facility] Unknown [id number] 02/10/2013 02/10/2013 [facility] Unknown [id number] 02/10/2013 02/10/2013 [facility] Unknown [id number] 02/10/2013 02/10/2013 [facility] Unknown [id number] 02/10/2013 02/10/2013 [facility] Unknown [id number] 02/10/2013 02/10/2013 [facility] Unknown [id number] 02/10/2013 02/10/2013 [facility] Unknown [id number] 02/10/2013 02/10/2013 [facility] Unknown [id number] 02/10/2013 02/10/2013 [facility] Unknown [id number] 02/10/2013 02/10/2013 [facility] Unknown [id number] 02/10/2013 02/10/2013 [facility] Unknown [id number] 02/10/2013 02/10/2013 [facility] Unknown [id number] 02/10/2013 02/10/2013 [facility] cough [id number] 02/13/2013 02/13/2013 [facility] cough [id number] 02/13/2013 02/13/2013 [facility] cough [id number] 02/13/2013 02/13/2013 [facility] cough [id number] 02/13/2013 02/13/2013 [facility] cough [id number] 02/13/2013 02/13/2013 [facility] cough [id number] 02/13/2013 02/13/2013 [facility] cough [id number] 02/13/2013 02/13/2013 [facility] cough [id number] 02/13/2013 02/13/2013 [facility] cough [id number] 02/13/2013 02/13/2013 [facility] cough [id number] 02/13/2013 02/13/2013 [facility] cough [id number] 02/13/2013 02/13/2013 [facility] Unknown [id number] 05/09/2013 05/09/2013 [facility] Unknown [id number] 05/09/2013 05/09/2013 [facility] Unknown [id number] 05/09/2013 05/09/2013 [facility] Unknown [id number] 05/09/2013 05/09/2013 [facility] Unknown [id number] 05/09/2013 05/09/2013 [facility] Unknown [id number] 05/09/2013 05/09/2013 [facility] Unknown [id number] 05/09/2013 05/09/2013 [facility] Unknown [id number] 05/09/2013 05/09/2013 [facility] Unknown [id number] 05/09/2013 05/09/2013 [facility] [employer] [id number] 06/17/2013 06/17/2013 [facility] [id number] 06/17/2013 06/17/2013 [facility] [id number] 06/17/2013 06/17/2013 [facility] [id number] 06/17/2013 06/17/2013 [facility] [id number] 06/17/2013 06/17/2013 [facility] [id number] 06/17/2013 06/17/2013 [facility] [id number] 06/17/2013 06/17/2013 [facility] Unknown [id number] 06/18/2013 06/18/2013 [facility] Unknown [id number] 06/18/2013 06/18/2013 [facility] Unknown [id number] 06/18/2013 06/18/2013 [facility] Unknown [id number] 06/18/2013 06/18/2013 [facility] Unknown [id number] 06/18/2013 06/18/2013 [facility] Unknown [id number] 06/18/2013 06/18/2013 [facility] Unknown [id number] 06/18/2013 06/18/2013 [facility] Unknown [id number] 06/18/2013 06/18/2013 [facility] sick [id number] 06/23/2013 06/23/2013 [facility] sick [id number] 06/23/2013 06/23/2013 [facility] sick [id number] 06/23/2013 06/23/2013 [facility] sick [id number] 06/23/2013 06/23/2013 [facility] sick [id number] 06/23/2013 06/23/2013 [facility] sick [id number] 06/23/2013 06/23/2013 [facility] sick [id number] 06/23/2013 06/23/2013 [facility] sick [id number] 06/26/2013 06/26/2013 [facility] sick [id number] 06/26/2013 06/26/2013 [facility] sick [id number] 06/26/2013 06/26/2013 [facility] sick [id number] 06/26/2013 06/26/2013 [facility] sick [id number] 06/26/2013 06/26/2013 [facility] AUDIT [id number] 08/13/2013 08/13/2013 [facility] fell on ribs [id number] 09/23/2013 09/23/2013 [facility] fell on ribs [id number] 09/23/2013 09/23/2013 [facility] fell on ribs [id number] 09/23/2013 09/23/2013 [facility] fell on ribs [id number] 09/23/2013 09/23/2013 [facility] Unknown [id number] 11/12/2013 11/12/2013 [facility] Unknown [id number] 11/12/2013 11/12/2013 [facility] Unknown [id number] 11/12/2013 11/12/2013 [facility] REFILL [id number] 11/25/2013 11/25/2013 [facility] REFILL [id number] 11/25/2013 11/25/2013 [facility] REFILL [id number] 11/25/2013 11/25/2013 [facility] Unknown [id number] 01/12/2014 01/12/2014 [facility] Outpatient [id number] [facility] 10/24/2017 10/25/2017 [facility] Inpatient [id number] [facility] 11/19/2017 11/22/2017 [facility] PreReg [id number] [facility] 02/07/2018 02/07/2018 [facility] Outpatient [id number] [facility] 04/02/2018 04/03/2018 [facility] Procedures Procedure Code Date Perfomer Comments Source Myelography via lumbar injection, includ ing radiological supervision and interpretation; lumbosacral [id number] 04/02/2018 [facility] Spinal fusion [id number] 11/19/2017 [facility] Exploratory lumbar laminectomy [id number] 06/18/1984 [facility] Cataract extraction and insertion of intraocular lens [id number] [facility] Lumbar spinal fusion [id number] [facility] Rotator cuff repair [id number] [facility] Assessment and Plan Assessment [...] previous fusion. 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 [facility] Hospitalist Consult Please [id number] any questions 11/22/2017 [facility] Plan of Care No Data Provided for This Section Social History Social History Date Source Social History TypeResponse Exercise 1 Alcohol Past Smoking Status Never smoker; Exposure to Tobacco Smoke None; Cigarette Smoking Last 365 Days No; Reg Smoking Cessation Counseling No entered on: 11/19/17 1Denies sob on exertion 2017 [facility] Social History ElementQualifiersDate Rep orted Ethnicity . Status , Is kyrgyz your cem ronny language? 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 [employer] September 23, 2013 09/23/2013 [facility] Marital History - (Active ) Never A Smoker (Active) Never Drank Alcohol (Active) No History of Drug Use (Denied) Occupation: Retired (Active) 08/13/2013 [facility] Family History Value Date S ource QualifierDescriptionCommentDate Reported Maternal Grandmother Comment not available [...] 10/03/2013 [facility] Family history of Diabetes Mellitus (V18 .0); (Active) Family history of Coronary Artery Disease (V17.49); (Active) Family history of Hypertension (V17.49); (Active) Family history of Cancer (Active) 08/13/2013 [facility] QualifierDescriptionCommentDate Reported Maternal Grandmother Comment not available [...] Mother lung cancer Jun 17, 2013 06/25/2013 [facility] QualifierDescriptionCommentDate [...] Mother lung cancer Feb 13, 2013 04/05/2013 [facility] QualifierDescriptionCommentDate [...] 04/05/2013 [facility] Family history of Diabetes Mellitus (V18 .0); (Active) Family history of Coronary Artery Disease (V17.49); (Active) Family history of Hypertension (V17.49); (Active) 06/29/2012 [facility] Advance Directives Order Name Results Value Date Source Advance Directives Advance Dir ectives No Advance Directives available. 08/13/2013 [facility] Advance Directives Advance Dir ectives No Advance Directives available. 06/29/2012 [facility] Functional Status No Data Provided for This Section
--- OUTSIDE RECORDS SUMMARY | 2020-01-28 21:37 | XMS REPORT | Continuity of Care Document ---
Author Author [facility] t Organization [facility] Address [address] [place] [address] Phone Unavailable Care Team Providers Care Silverer Name Role Phone NONSTAFF PCP Unavailable DAYNA GOULD Attphys Unavailable RAMOS MEDRANO Attphys Unavailable ADOLFO GERMAIN Attphys Unavailable DARIO HERNANDEZ Attphys Unavailable Marysol OLVERA Attphys Unavailable Henok CHRISTINE YIFABIOLA Attphys Unavailable KushwaDeneen maritap Mark Attphys [place], P Mark Attphys RAMOS MEDRANO Admphys Unavailable Marysol OLVERA Admphys Unavailable Henok CHRISTINE YICHING Admphys Unavailable [place], P Mark Admphys Payers Payer Name Policy Type Policy Number Effective Date Expiration Date Marysol smithkishor MORRIS [id number] 2018 00:00:00 [facility] Medicare A & B [id number] 2013 00:00:00 [facility] Problems Condition Name Condition Details Condition Category Status Onset Date Resolution Date Last Treatment Date Treating Clinician Comments Source M48.062 M48. 062 Active 01/14/2019 [facility] Diagnosis Active 2019-01-14 00:00:00 2019-02-11 13:48:00 Rosa Garcia M48.061, M43.16 M48. 061, M43.16 Active 03/31/2018 [facility] Diagnosis Active 2018-03-31 00:00:00 2018-04-01 12:49:00 [facility] M48.061, M43.16 BACK PAIN M48. 061, M43.16 BACK PAIN Active 03/31/2018 [facility] Diagnosis Active 2018-03-31 00:00: 00 2018-04-02 12:41:00 [facility] Pain of left hip joint Pain of left hip joint Disease Active 2018-02-07 00:00:[address] Closed fracture of acetabulum Closed fracture of acetabulum Disease Active 2018-02-07 00:00:00 Gerardo Buchanan Closed bilateral fracture of pubic rami Closed bilateral fra cture of pubic rami Disease Active 2018-02-07 00:00:00 Gerardo Buchanan M48.061, M43.16 LOW BACK PAIN M48.061, M43.16 LOW BACK PAIN Active 01/29/2018 [facility] Diagnosis Active 2018-01-29 00:0 0:00 2018-03-27 15:23:00 [facility] Jose Gross hematuria Gross hematuria Disease Active 2017-12-31 00:00:00 Gerardo Buchanan Abdominal pain Abdominal pain Disease Active 2017-12-18 00:00:00 Gerardo Buchanan Intractable abdominal pain Intractable abdominal pain Disease Active 2017-12-17 00:00:[address] STENOSIS STEN OSIS Active 10/31/2017 [facility] Diagnosis Active 2017-10-31 00:00:00 2017-11-19 14:10:00 [facility] M43.16, M48.061 M43. 16, M48.061 Active 10/16/2017 [facility] Diagnosis Active 2017-10-16 00:00:00 2017-10-24 11:17:00 [facility] Spinal stenosis of lumbar region Spinal stenosis of lumbar regio n Disease Active 2017-09-27 00:00:00 Rg Buchanan Lumbar radiculopathy Lumbar radiculopathy Disease Active 00:00:00 Gerardo Buchanan Lumbar spondylosis Lumbar spondylosis Disease Active 2017-08-15 00:00:0 0 Gerardo Buchanan Culture positive for methicillin resistant Staphylococ cus aureus (finding) Culture positive for methicillin resistant Staphylococcus aureus (finding) Active 06/18/2007 Problem 10/20/2018 from cellulitis in left forearm/elbow [facility] Problem Active 2007-06-18 00:00:00 2018-10-20 13:17:44 Rosa Garcia Severe sepsis Severe sepsis Problem Active [facility] Urinary tract infection UTI (urinary tract infection) Problem Active [facility] Headache Headache Problem Active [facility] Uncontrolled diabetes mellitus Uncontrolled diabetes mellitus Problem Active [facility] 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 Disease Active [facility] Mononeuritis of left lower extremity Mononeuritis of left lo wer extremity Disease Active [facility] 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 Disease Active [facility] Spinal stenosis, lumbosacral region Spinal stenosis, lumbosacral region 10/20/2018 [facility] Problem 2018-10-20 13:17:44 Rosa Garcia Spondylolisthesis, lumbar region Spondylolisthesis, lumbar region 10/20/2018 [facility] Problem 2018-10-20 13:17:44 Rosa Garcia Arthrodesis status Arth rodesis status 10/20/2018 [facility] Problem 2018-10-20 13:17:44 Rosa Garcia Viral hepatitis C (disorder) V iral hepatitis C (disorder) Resolved Problem 10/20/2018 [facility] Resolved 2018-10-20 13:17:44 Rosa Garcia Diabetes mellitus Diab etes mellitus Active Problem 02/03/2014 [facility] Problem Active 2014-02-03 03:07:25 Rosa Garcia Fatigue Fati andrea Active Problem 02/03/2014 [facility] Problem Active 2014-02-03 03:07:25 Rosa Garcia Leg pain Leg pain Active Problem 02/03/2014 [facility] Problem Active 2014-02-03 03:07:25 Rosa Garcia Hyperlipidemia Hype rlipidemia Active Problem 02/03/2014 [facility] Problem Active 2 03:07:25 Rosa Garcia HTN (hypertension) HTN (hypertension) Active Problem 02/03/2014 [facility] Problem Active 2014-02-03 03:07:25 Rosa Garcia Cough Coug h Active Diagnosis 04/05/2013 [facility] Diagnosis Active 2013-04-05 04:16:57 Rosa Garcia Obesity Obes ity Active Diagnosis 07/10/2013 [facility] Diagnosis Active 2013-07-10 02:16:15 Rosa Garcia Bronchitis Bron chitis Active Diagnosis 07/10/2013 [facility] Diagnosis Active 2013-07-10 02:16:15 Rosa Garcia Positive CARLITO (antinuclear antibody) Positive CARLITO (antinuclear antibody) Active Diagnosis 07/10/2013 [facility] Diagnosis Active 2013-07-10 02:16:15 Me moritiesha Garcia Rib pain on left side Rib pain on left side Active Diagnosis 10/03/2013 [facility] Diagnosis Active 2013-10-03 01:19:06 Rosa Garcia Encounter for medication counseling Encounter for medication counseling Active Diagnosis 06/25/2013 [facility] Diagnosis Active 2013-06-25 02:15:56 Me james Garcia Right ankle pain Righ t ankle pain Active Diagnosis 06/25/2013 [facility] Diagnosis Active 2013-06-25 02:15:56 Rosa Garcia Depression Depr ession Active Diagnosis 06/25/2013 [facility] Diagnosis Active 2013-06-25 02:15:56 Rosa Garcia Tachycardia Tach ycardia Active Diagnosis 06/25/2013 [facility] Diagnosis Active 2013-06-25 02:15:56 Rosa Hongann Asthma (disorder) Asth ma (disorder) Active Problem 10/20/2018 last attack 3 yrs ago. [facility] Problem Active 2018-10-20 13:17:44 [facility] Jose Depressive disorder (disorder) Depressive disorder (disorder) Active Problem 10/20/2018 [facility] Problem Active 2018-10-20 13:17:44 Rosa Hongann Gastroesophageal reflux disease (disorder) Gastroesophageal reflux disease (disorder) Active Problem 10/20/2018 [facility] Problem Active 2018-10-20 13:17:44 Alek Garcia Hypertensive disorder, systemic arterial (disorder) Hypertensive disorder, systemic arterial (disorder) Active Problem 10/20/2018 [facility] Problem Active 2018-10-20 13:17:44 Rosa Hongann Obesity (disorder) Obes ity (disorder) Active Problem 10/20/2018 [facility] Problem Active 2018-10-20 13:17:44 [facility] Paroxysmal atrial fibrillation (disorder) Paroxysmal atrial fibrillation (disorder) Active Problem 10/20/2018 [facility] Problem Active 2018-10-20 13:17:44 [facility] Diabetes mellitus type 2 (disorder) Diabetes mellitus type 2 (disorder) Active Problem 10/20/2018 [facility] Problem Active 2018-10-20 13:17:44 [facility] Diabetes mellitus (disorder) D iabetes mellitus (disorder) Active Problem 10/27/2017 [facility] Problem Active 2017-10-27 12:22:35 [facility] SPONDYLOLISTHESIS, LUMBAR REGION SPONDYLOLISTHESIS, LUMBAR REGION Active [facility] Diagnosis Active 2018-04-02 12:41:00 [facility] SPINAL STENOSIS, LUMBAR REGION WITHOUT N SPINAL STENOSIS, LUMBAR REGION WITHOUT N Active [facility] Diagnosis Active 2018-04-02 12:41:00 [facility] SPINAL STENOSIS, LUMBAR REGION WITH NEUR SPINAL STENOSIS, LUMBAR REGION WITH NEUR Active [facility] Diagnosis Active 2019-02-11 13:48:00 [facility] Sacrococcygeal disorders, not elsewhere classified Sacrococcygeal disorders, not elsewhere classified 04/19/2018 10/20/2018 [facility] Problem 2018-04-19 03:23:39 2018-10-20 13:17:4 4 2018-10-20 13:17:44 [facility] Allergies, Adverse Reactions, Alerts Allergy Name Allergy Type Status Severity Reaction(s) Onset Date Inacti ve Date Treating Clinician Comments Source Carisoprodol Propensity to adverse reactions to drug Active Rash 2017-08-15 00:00:00 Gerardo Reza t Soma Soma Active [facility] Soma TABS Soma TABS Active Alek rial [place] lincomycin lincomycin Active Ar morial [place] Zofran<sup>1</sup> Zofran<sup>1</sup> Active [facility] Motrin Motrin Active [facility] oxyCODONE oxyCODONE Active Alek rial [place] Family History Family Member Diagnosis Comments Start Date Stop Date Source Natural father Diabetes [facility] Natural mother Cancer [facility] Natural mother Hypertension [facility] Unknown Family Member Family History 2012-06-29 20:01:40 2 20:01:40 [facility] Social Habit Start Date Stop Date Quantity Comments Source Sex Assigned At Duran Buchanan Alcohol intake 2018-02-07 00:00:00 2018-02-07 00:00:00 Current non-drinker of alcohol (finding) Gerardo Buchanan Ethnicity 2013-09-23 00:00:00 2013-09-23 00:00:00 [facility] Social History 2013-08-13 16:00:49 2013-08-13 16:00:49 [facility] Smoking Status Start Date Stop Date Source Never smoker Gerardo rojas Medications Ordered Medication Name Filled Medication Name Start Date Stop Da te Current Medication? Ordering Clinician Indication Dosage Frequency Signature (SIG) Comments Components Source Fluconazole (Diflucan) 100 Mg Tablet Fluconazole (Diflucan) 100 Mg Tablet 2019-05-08 00:00:[address] Cole [address] 200 Daily [facility] Nifedipine (Nifedipine Er) 30 Mg Tab.er.24 Nifedipine (Nifedipine Er) 30 Mg Tab.er.24 2019-05-08 00:00:00 Yes Rosalva Cole [address] Light 30 Tw ice A Day [facility] Cefdinir (Omnicef) 300 Mg Capsule, 300 Mg Oral Cefdini r (Omnicef) 300 Mg Capsule, 300 Mg Oral 2019-04-29 00:00:00 2019-05-05 00:00:00 No Tyra Merrittrose Lamp [address] Light 300 Twice A Day [facility] Nitrofurantoin Monohyd/M-Cryst (Macrobid 100 Mg Capsule) 100 Mg Capsule, 100 Mg Oral Nitrofurantoin Monohyd/M-Cryst (Macrobid 100 Mg Capsule) 100 Mg Capsule, 100 Mg Oral 2019-03-16 00:00:00 2019-04-28 00:00:00 No Dayna Gould Do 100 Twice A Day [facility] Nph, Human Insulin Isophane (Novolin N) 100 Unit/1 Ml Vial, 10 Unit Sub-Q Nph, Human Insulin Isophane (Novolin N) 100 Unit/1 Ml Vial, 10 Unit Sub-Q 2018-07-27 00:00:00 2019-04-28 00:00:00 No Gaurav Sutton Md 10 Twice A Day [facility] Tetracycline Hcl 500 Mg Capsule, 500 Mg Oral Tetracycl ine Hcl 500 Mg Capsule, 500 Mg Oral 2018-07-27 00:00:00 2019-01-23 00:00:00 No Gaurav Sutton Md 500 Twice A Day [facility] amLODIPine (NORVASC) 5 mg tablet 2018-02-14 00:00:00 2019-01 23:59:00 No 5mg QD Take 1 tablet (5 mg total) by mouth daily. Gerardo Buchanan tamsulosin (FLOMAX) 0.4 mg capsule 2018-02-13 16:43:25 Yes .4mg QD Take 0.4 mg by mouth daily. Gerardo Buchanan dapagliflozin 10 mg tablet 2018-02-13 16:43:25 Yes 10mg QD Take 10 mg by mouth daily with breakfast. Gerardo beltran aspirin (ECOTRIN) 81 MG enteric coated tablet 2018-02-13 16:43:2 5 Yes 81mg QD Take 81 mg by mouth every ev ening. Per patient's spouse medication is currently ON HOLD x 3 days. Gerardo beltran insulin NPH (HumuLIN-N) 100 unit/mL injection 2018-02-13 16:43:2 5 Yes 25U Q.5D Inject 25 Units under the skin 2 (two) times a day. Gerardo Buchanan guaiFENesin (MUCINEX) 600 mg tablet extended release 12hr 2018-02-13 00:00:00 Yes 600mg Q.5D Take 1 tablet (600 mg total) by mouth 2 (two) times a day as needed (cough). Gerardo Buchanan gabapentin (NEURONTIN) 300 mg capsule 2018-02-13 00:00 :00 2019-02-13 23:59:00 No 600mg [id number] Take 2 capsules (600 mg total) by mouth 3 (three) times a day. Gerardo Buchanan sennosides-docusate sodium (SENOKOT-S) 8.6-50 mg per tablet 2018-02-13 00:00:00 2019-02-13 23:59:00 No 1{tbl} Q.5D Take 1 tablet by mouth 2 (two) times a day. Gerardo Buchanan clonIDINE (CATAPRES) 0.1 MG tablet 2018-02-13 00:00:00 201 02-23-29 23:59:00 No .1mg Q8H Take 1 tablet (0 .1 mg total) by mouth every 8 (eight) hours as needed for high blood pressure (SBP > 160). Gerardo Buchanan tizanidine 4 MG Oral Capsule [Zanaflex] 2017-11-21 20:41:00 Yes 4 mg = 1 cap, PO, TID, # 40 cap, 0 Refill(s) Rosa Garica Acetaminophen 325 MG / Hydrocodone Bitartrate 10 MG Or al Tablet [[place] 10/325] 2017-11-21 20:41:00 Yes 1-2 tab, PO, Q4-6H, PRN Pain, X 7 day, # 80 tab, 0 Refill(s) Rosa Garcia {21 (Methylprednisolone 4 MG Oral Tablet [Medrol]) } Pack [M edrol Dosepak] 2017-11-21 20:41:00 Yes See Instructions, PO, Take by mouth as directed on label., # 1 Pack, 0 Refill(s) Rosa Garcia Docusate Sodium 100 MG Oral Capsule 2017-11-21 20:41:00 Yes 100 mg = 1 cap, PO, BID, # 30 cap, 0 [facility] Flomax 2017-11-21 17:00:00 No Notes: (Same As: Flomax) "Do Not Crush" Rosa Garcia Acetaminophen 325 MG / Hydrocodone Bitartrate 10 MG Oral Tab let 2017-11-20 19:30:00 Yes 1 tab, PO, Q6H, PRN Pain Score 4-6, # 60 tab, 0 Refill(s), given to patient Rosa abarca Regular Insulin, Human 100 UNT/ML Injectable Solution 2017-11-20 19:30:00 Yes 30 unit, SUB-Q, TID-Before Meals, 0 Refi ll(s) [facility] Jose insulin isophane (NPH) 100 units/mL human recombinant subcut aneous suspension 2017-11-20 19:30:00 Yes 30 unit, SUB-Q, BI D, 0 Refill(s) Rosa Garcia Omeprazole 2017-11-20 14:00:00 No Notes: Take 1 hour before or 2 hours after meal; Non-Formulary Drug "Do Not Crush" (Same as: Prilosec) Rosa Garcia sennosides, JAIL 2017-11-20 14:00:00 No Notes: (Same as: Senokot) Rosa Garcia Ramipril 2017-11-20 14:00:00 No Notes: (Villa monzon as:Altace) Rosa Garcia Milk of Magnesia 2017-11-20 14:00:00 No Notes: (Same as: Milk of Magnesia, MOM) Rosa Garcia Protonix 2017-11-20 14:00:00 No Notes: Tablet should not be chewed or crushed. (Same as: Protonix) Rosa Garcia Flecainide 2017-11-20 02:00:00 No Notes: (S juan carlos as: Tambocor) Rosa Garcia Flecainide 100mg 2017-11-20 02:00:00 No Flecainide 100mg, 1 tab, Drug form: MISC, Route: PO, Q12H, 11/19/17 21:00:00 CDT, Duration: 30 day, Stop date: 12/19/17 9:00:00 CDT [facility] Gely bingham insulin regular 100 units/mL human recombinant 2017-11-19 23:25: 00 No 60 units) WASTE: F/P - Black; E - Alfredo icipal Trash Bin Stable for 28 days at room temperature Expires in days from Date [facility] Jose Cefazolin 2017-11-19 23:00:00 No Notes: Villa monzon as: Ancef [facility] Jose Novolin N 2017-11-19 22:00:00 No Notes: Roll in palms of hands gently; Do not shake vigorously. (Same as: Humulin N) Do not hold insulin without contacting prescriber WASTE: F/P - Black; E - Municipal Trash Bin Stable for 28 days at room temperature Expires in days from Date [facility] Jose Docusate 2017-11-19 22:00:00 No Notes: (Same as: Colace) (Do Not Crush) Rosa Garcia Docusate Sodium 100 MG Oral Capsule 2017-11-19 22:00:00 No Notes: (Same as: Colace) (Do Not Crush) Edelmira Garcia Zanaflex 2017-11-19 21:00:00 No Notes: (Villa e As: Zanaflex) [facility] Dexamethasone 2017-11-19 21:00:00 No Notes: MEDICATION WASTE Product Size: 10 mg Product Wasted: ___ mg [facility] normal saline 0.9% IV 1,000 mL 2017-11-19 19:32:00 No 1,000 mL, Rate: 75 ml/hr, Infuse over: 13.3 hr, Route: IV, Dosing Weight 105.909 kg, Total Volume: 1,000, Start date: 11/19/17 14:32:00 CDT, Duration: 30 day, Stop date: 12/19/17 14:31:00 CDT, 2.31, m2 [facility] Novolin R 2017-11-19 16:30:00 No 60 units) WASTE: F/P - Black; E - Municipal Trash Bin Stable for 28 days at room temperature Expires in days from Date [facility] Promethazine 2017-11-19 16:30:00 No Notes: Do not give IV push. (Same as: Phenergan) [facility] Meperidine 2017-11-19 16:30:00 No Notes: (Same as: Demerol) "Use Precaution in Elderly, Seizure disorders, and Renal impairment" [facility] Flumazenil 2017-11-19 16:30:00 No Notes: (S juan carlos as: Romazicon) [facility] Naloxone 2017-11-19 16:30:00 No Notes: Same as Narcan [facility] Hydromorphone 2017-11-19 16:30:00 No Notes: Same as Dilaudid [facility] Acetaminophen 2017-11-19 16:30:00 No Notes: Max acetaminophen 4000 mg/day (4 gm/day). (Same as: Tylenol Extra Strength) [facility] Morphine 2017-11-19 16:30:00 No Not es: (Same as:MORPhine Sulfate) [facility] Hydralazine 2017-11-19 16:30:00 No Notes: (Same as: Apresoline) Push over 5 minutes [facility] Labetalol 2017-11-19 16:30:00 No 10 mg, 2 mL, Route: IVP, Drug form: INJ, Q5Min, Dosing Weight 105.909, kg, PRN Elevated BP, Start date: 11/19/17 11:30:00 CDT, Duration: 5 doses or times, Stop date: 11/19/17 22:00:00 CDT [facility] glycopyrrolate (ANES) 2017-11-19 16:21:00 No Route: IV, Drug form: INJ, ONCE, Stop date: 11/19/17 11:21:00 CDT [facility] neostigmine (ANES) 2017-11-19 16:21:00 No Route: IV, Drug form: INJ, ONCE, Stop date: 11/19/17 11:21:00 CDT Jessica mckeon [place] Hydromorphone 2017-11-19 16:20:00 No Notes: (Same as: Dilaudid) conc = 0.5 mg/ml 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: ;Delay: ;Basal: [facility] Naloxone 2017-11-19 16:20:00 No Notes: Same as Narcan [facility] D5W 1/2NS + KCL 20mEq/L 1000ml (Premix) 1,000 mL 2017-11-19 16:2 0:00 No Notes: PREMIX IV - Do Not Alter WASTE: F/P - Sink; E - Municipal Trash Bin [facility] Saline Flush 0.9% 2017-11-19 16:20:00 No Notes: Same as: BD Posiflush Sterile [facility] Trazodone 2017-11-19 16:20:00 No Notes: (Sa me As: Desyrel) [facility] Acetaminophen 325 MG / Hydrocodone Bitartrate 10 MG Oral Tab let 2017-11-19 16:20:00 No Notes: Do not exceed 4gm/day of acetaminophen. (Same as: [place] 325/10) [facility] Diphenhydramine 2017-11-19 16:20:00 No Notes: (Same as: Benadryl) [facility] Dulcolax Laxative 2017-11-19 16:20:00 No Notes: (Same As: Dulcolax, Correctol) (Do Not Crush) "Do Not Crush" [facility] Aluminum Hydroxide 40 MG/ML / Magnesium Hydroxide 40 MG/ML / Simethicone 4 MG/ML Oral Suspension 2017-11-19 16:20:00 No Notes: (aluminum hydroxide- magnesium hyd- simethicone [phone]/5ml 30 ml ud GEO) Rosa Garcia ePHEDrine (ANES) 2017-11-19 15:47:00 No Route: IV, Drug form: INJ, ONCE, Stop date: 11/19/17 10:47:00 [facility] (ANES) 2017-11-19 15:47:00 No Route: IV, Drug form: INJ, ONCE, Stop date: 11/19/17 10:47:00 CDT [facility] rocuronium (ANES) 2017-11-19 15:42:00 No Route: IV, Drug form: INJ, ONCE, Stop date: 11/19/17 10:42:00 [facility] dexamethasone (ANES) 2017-11-19 15:42:00 No Route: IV, Drug form: INJ, ONCE, Stop date: 11/19/17 10:42:00 CDT [facility] lidocaine (ANES) 2017-11-19 15:42:00 No Route: IV, Drug form: INJ, ONCE, Stop date: 11/19/17 10:42:00 [facility] propofol (ANES) 2017-11-19 15:42:00 No Route: IV, Drug form: INJ, ONCE, Stop date: 11/19/17 10:42:00 [facility] succinylcholine (ANES) 2017-11-19 15:42:00 No Route: IV, Drug form: INJ, ONCE, Stop date: 11/19/17 10:42:00 CDT [facility] fentaNYL (ANES) 2017-11-19 15:42:00 No Route: IV, Drug form: INJ, ONCE, Stop date: 11/19/17 10:42:00 [facility] midazolam (ANES) 2017-11-19 15:42:00 No Route: IV, Drug form: SOLN, ONCE, Stop date: 11/19/17 10:42:00 [facility] acetaminophen (DWAINES) 10 mg 2017-11-19 15:40:00 No Route: IV, Drug form: INJ, Start date: 11/19/17 10:40:00 CDT, Stop date: 11/19/17 11:40:00 CDT [facility] ceFAZolin (ANES) 2017-11-19 15:27:00 No Route: IV, Drug form: INJ, ONCE, Stop date: 11/19/17 10:27:00 CDT Jessica mckeon Jose propofol (ANES) 10 mg 2017-11-19 14:55:00 No Route: IV, Drug form: INJ, Start date: 11/19/17 9:55:00 CDT, Stop date: 11/19/17 10:55:00 CDT [facility] Lactated Ringers Injection IV ([facility]) 1000 mL 2017-11-19 14:23:00 No Route: IV, Total Volume: 1,000, Start date: 11/19/17 9:23:00 CDT, Stop date: 11/19/17 10:23:00 CDT [facility] duloxetine 2017-11-19 14:00:00 No Notes: (Same as: Cymbalta) (Do Not Crush) [facility] Amlodipine 2017-11-19 14:00:00 No Notes: (S juan carlos as: Norvasc) [facility] Albuterol 0.83 MG/ML Inhalant Solution 2017-11-19 13:37:00 No Notes: SEE RT DOCUMENTATION (Same as: Proventil) [facility] Glucagon 2017-11-19 13:35:00 No 1 mg, Route: IM, Drug form: PDR/INJ, PRN, Dosing Weight 105.909, kg, PRN Blood Glucose Results, Start date: 11/19/17 8:35:00 CDT, Duration: 30 day, Stop date: 12/19/17 8:34:00 CDT [facility] Dextrose 50% Syringe 2017-11-19 13:35:00 No 25 gm, 50 mL, Route: IVP, Drug Form: INJ, Dosing Weight 105.909, kg, PRN, PRN Blood Glucose Results, Start date: 11/19/17 8:35:00 CDT, Duration: 30 day, Stop date: 12/19/17 8:34:00 CDT [facility] Insulin Lispro 2017-11-19 13:35:00 No Notes: (Same as: Humalog ) Roll in palms of hands gently; Do not shake `vigorously. "Single Patient Use Only " WASTE: F/P - Black; E - Municipal Trash Bin Stable for 28 days at room temperature. Expires in days from Date Rosa Garcia Benadryl 2017-11-19 13:32:00 No Notes: (Villa e as: Benneelryakshat) Rosa Garcia Trazodone Hydrochloride 50 MG Oral Tablet 2017-11-19 13:32:00 No Notes: (Same As: Desyrel) Rosa Barker nn Lactated Ringers IV 1,000 mL 2017-11-19 13:04:00 No 1,000 mL, Rate: 40 ml/hr, Infuse over: 25 hr, Route: IV, Dosing Weight 105.909 kg, Total Volume: 1,000, Start date: 11/19/17 8:04:00 CDT, Duration: 30 day, Stop date: 12/19/17 8:03:00 CDT, 2.31, m2 Rosa Garcia Omeprazole 20 MG Enteric Coated Tablet [Prilosec] 2017-11-06 19:23:00 Yes 20 mg = 1 tab, PO, Daily, # 30 tab, 0 Refill(s) Rosa Garcia NPH Insulin, Human 100 UNT/ML Injectable Suspension [Novolin N] 2017-11-06 19:22:00 No 30 unit, SUB-Q, BID, # 10 ml, 0 Refill(s) Rosa Garcia Regular Insulin, Human 100 UNT/ML Injectable Solution [Novol in R] 2017-11-06 19:22:00 No 30 unit, SUB-Q, TID-Bef ore Meals, # 10 mL, 0 Refill(s) Rosa Garcia Home Medication 2017-11-06 19:21:00 No PO, Daily, Refill(s) 0 Rosa Garcia ramipril 5 mg oral capsule 2017-11-06 19:21:00 Yes 5 mg = 1 cap, PO, Daily, # 30 cap, 1 Refill(s) Rosa lal Metformin 2017-11-06 19:21:00 Yes 1, 000 mg, PO, BID, 0 Refill(s) [facility] Aspirin 2017-11-06 19:20:00 No 325 mg, PO, Daily, 0 Refill(s) [facility] DULoxetine 60 mg oral delayed release capsule 2017-11-06 19:20:0 0 Yes 60 mg = 1 cap, PO, Daily, # 30 cap, 0 Refill(s) [facility] Amlodipine 2017-11-06 19:19:00 Yes 5 mg, PO, Daily, 0 Refill(s) [facility] flecainide 100 mg oral tablet 2017-11-06 19:19:00 Yes 100 mg = 1 tab, PO, Q12H, # 180 tab, 0 Refill(s) [facility] DULoxetine (CYMBALTA) 60 MG capsule 2017-08-14 00:00:00 Yes 60mg QD Take 60 mg by mouth daily. Gerardo rojas atorvastatin (LIPITOR) 20 MG tablet 2017-08-13 00:00:00 Yes 20mg QD Take 20 mg by mouth daily. Gerardo rojas flecainide (TAMBOCOR) 100 MG tablet 2017-08-06 00:00:00 Yes 100mg Q12H Take 100 mg by mouth every 12 (twelve) hours. Gerardo Buchanan metFORMIN (GLUCOPHAGE) 1,000 mg tablet 2017-08-03 00:00:00 Yes 1000mg Q.5D Take 1,000 mg by mouth 2 (two) times a day. Gerardo Buchanan ramipril (ALTACE) 5 MG capsule 2017-08-01 00:00:00 Yes 5mg QD Take 5 mg by mouth daily. Gerardo Buchanan Novolin N 2013-10-03 01:19:06 Yes Georgette Hawley 23 units [facility] Novolin R 2013-10-03 01:19:06 Yes Georgette Hawley 23 units [facility] Metformin HCl 2013-10-03 01:19:06 Yes Georgette Hawley TAKE TWO TABLETS BY MOUTH TW[facility] Besylate 2013-10-03 01:19:06 Yes Georgette Jeanna lFox TAKE ONE TABLET BY MOUTH EVERY DAY [facility] nn Aspirin 2013-10-03 01:19:06 Yes Georgette Chandan 1 tablet [facility] Vicodin 2013-09-23 00:00:00 Yes Georgette Chandan 1 tablet [facility] Ipratropium Fortuna 2013-06-26 00:00:00 Yes Gwendolyn Kantara as directed [facility] Jose Norel CS 2013-06-26 00:00:00 Yes Gwendolyn Kantara 1 t easpoon [facility] Jose ProAir HFA 2013-06-23 00:00:00 Yes Georgette ChanFox 2 puffs as needed [facility] Zithromax Z-Landry 2013-06-23 00:00:00 Yes Gwendolyn Kantara 2 tablets on the first day, then 1 tablet daily for 4 days [facility] Bystolic 2013-06-17 00:00:00 Yes Georgette ChanFox 1 tablet [facility] Cymbalta 2013-05-09 00:00:00 Yes Georgette ChanFox 1 capsule [facility] Metformin HCl 2013-04-05 04:16:57 Yes Jose Alberto Holland 2 tablet [facility] Simvastatin 2013-04-05 04:16:57 No Jose Alberto Skyler 1 tablet [facility] Lisinopril 2013-04-05 04:16:57 No Jose Alberto Holland 1 tablet [facility] Cymbalta 2013-02-13 00:00:00 No Jose Alberto Holland 1 capsule [facility] Tramadol HCl 2013-02-13 00:00:00 Yes Jose Alberto Holland 1 tablet as needed [facility] Cymbalta 2013-02-13 00:00:00 Yes Jose Alberto Holland 1 capsule [facility] Amlodipine Besylate 2013-02-13 00:00:00 Yes Gwendolyn Garciatara 1 tablet [facility] HumuLIN N 100 UNIT/ML Subcutaneous Suspension 2012-06-29 06:00:0 0 Yes ; Start Date: 06/29/2012 (Active) [facility] [place] HumuLIN R 100 UNIT/ML Injection Solution 2012-06-29 06:00:00 Yes ; Start Date: 06/29/2012 (Active) [facility] MetFORMIN HCl 500 MG Oral Tablet 2012-06-29 06:00:00 Yes ; Start Date: 06/29/2012 (Active) [facility] [place] nn Lisinopril 10 MG Oral Tablet 2012-06-29 06:00:00 Yes ; Start Date: 06/29/2012 (Active) [facility] Simvastatin 40 MG Oral Tablet 2012-06-29 06:00:00 Yes ; Start Date: 06/29/2012 (Active) Rosa Garcia Duloxetine Hcl (Cymbalta) 30 Mg Capsule. Duloxetine Hcl (Cymbalta) 30 Mg Capsule. Yes 60 Daily [facility] Flecainide Acetate 100 Mg Tablet Flecainide Acetate 100 Mg Tablet Yes 100 Twice A Day [facility] Metformin Hcl 500 Mg Tablet Metformin Hcl 500 Mg Tablet Yes 1000 Twice A Day [facility] Propranolol Hcl 40 Mg Tablet Propranolol Hcl 40 Mg Tablet Y es 60 Twice A Day [facility] Sitagliptin Phosphate (Januvia) 100 Mg Tablet Sitaglip tin Phosphate (Januvia) 100 Mg Tablet Yes 100 Daily [facility] Tobramycin Sulfate (Tobrex) 5 Ml Drops, 5 Ml Ophthalmi c Tobramycin Sulfate (Tobrex) 5 Ml Drops, 5 Ml Ophthalmic 2019-05-05 00:00:00 No 5 Every 8 Hours [facility] Aspirin 81 Mg Tab.chew, 81 Mg Oral Aspirin 81 Mg Tab.chew, 81 Mg Oral 2019-04-28 00:00:00 No 81 Daily [facility] Finasteride 5 Mg Tablet, 5 Mg Oral Finasteride 5 Mg Tablet, 5 Mg Oral 2019-04-28 00:00:00 No 5 Daily [facility] Tamsulosin Hcl 0.4 Mg Cap.er.24h, 0.4 Mg Oral Tamsulos in Hcl 0.4 Mg Cap.er.24h, 0.4 Mg Oral 2019-04-28 00:00:00 No .4 Daily [facility] Atorvastatin Calcium 20 Mg Tablet, 20 Mg Oral Atorvast atin Calcium 20 Mg Tablet, 20 Mg Oral 2019-01-23 00:00:00 No 20 Bedtime [facility] Docusate Sodium 100 Mg Capsule, 100 Mg Oral Docusate S odium 100 Mg Capsule, 100 Mg Oral 2019-01-23 00:00:00 No 100 Daily [facility] Morphine Sulfate (Morphine Sulfate Er) 30 Mg Tablet.er , 15 Mg Oral Morphine Sulfate (Morphine Sulfate Er) 30 Mg Tablet.er, 15 Mg Oral 20 04-02-08 00:00:00 No 15 Every 12 Hours as needed for Pain [facility] Ramipril 5 Mg Capsule, 5 Mg Oral Ramipril 5 Mg Capsule, 5 Mg Ora l 2019-01-23 00:00:00 No 5 Daily [facility] Insulin Regular, Human (Humulin R) 100 Unit/1 Ml Vial, 25 Unit Sub-Q Insulin Regular, Human (Humulin R) 100 Unit/1 Ml Vial, 25 Unit Sub-Q 2018-07-27 00:00:00 No 25 Before Meals [facility] Nph, Human Insulin Isophane (Novolin N) 100 Unit/1 Ml Vial, 25 Unit Sub-Q Nph, Human Insulin Isophane (Novolin N) 100 Unit/1 Ml Vial, 25 Unit Sub-Q 2018-07-27 00:00:00 No 25 Twice A Day [facility] Duloxetine Hcl (Cymbalta) 30 Mg Capsule., 60 Mg Oral Duloxetine Hcl (Cymbalta) 30 Mg Capsule., 60 Mg Oral 2018-07-25 00:00:00 No 60 Daily [facility] Losartan Potassium 25 Mg Tablet, 25 Mg Peg Tube Losart an Potassium 25 Mg Tablet, 25 Mg Peg Tube 2018-07-25 00:00:00 No 25 Daily [facility] Vital Signs Vital Name Observation Time Observation Value Comments Source Respitory Rate 2018-04-02 19:40:00 [facility] Heart Rate 2018-04-02 19:40:00 [facility] Systolic (mm Hg) 2018-04-02 19:40:00 Alek rial [place] Diastolic (mm Hg) 2018-04-02 19:40:00 [facility] orial [place] Heart Rate 2018-04-02 19:30:00 [facility] [place] Respitory Rate 2018-04-02 19:30:00 Memori al Jose Systolic (mm Hg) 2018-04-02 19:30:00 Alek rial [place] Diastolic (mm Hg) 2018-04-02 19:30:00 Mem orial [place] Respitory Rate 2018-04-02 19:20:00 [facility] Systolic (mm Hg) 2018-04-02 19:20:00 Alek rial [place] Diastolic (mm Hg) 2018-04-02 19:20:00 Mem orial [place] Heart Rate 2018-04-02 19:20:00 [facility] BMI Calculated 2018-04-02 18:00:00 [facility] Weight 2018-04-02 18:00:00 [facility] [place] Height 2018-04-02 18:00:00 177.8 cm [facility] Systolic (mm Hg) 2017-11-22 12:40:00 Alek rial Jose Diastolic (mm Hg) 2017-11-22 12:40:00 Mem orial [place] Respitory Rate 2017-11-22 12:40:00 [facility] [place] Heart Rate 2017-11-22 12:40:00 [facility] Temperature Oral (F) 2017-11-22 12:40:00 98.1 F [facility] [place] Respitory Rate 2017-11-22 08:58:00 [facility] [place] Systolic (mm Hg) 2017-11-22 08:58:00 Alke rial Jose Diastolic (mm Hg) 2017-11-22 08:58:00 Mem orial [place] Heart Rate 2017-11-22 08:58:00 [facility] Temperature Oral (F) 2017-11-22 08:58:00 98.2 F [facility] Respitory Rate 2017-11-22 04:55:00 [facility] Heart Rate 2017-11-22 04:55:00 [facility] [place] Temperature Oral (F) 2017-11-22 04:55:00 98.4 F [facility] [place] Systolic (mm Hg) 2017-11-22 04:55:00 Alek rial Jose Diastolic (mm Hg) 2017-11-22 04:55:00 Mem orial Jose BMI Calculated 2017-11-19 12:50:00 [facility] Weight 2017-11-19 12:50:00 [facility] Height 2017-11-06 19:28:00 177.8 cm [facility] Respitory Rate 2017-10-24 19:00:00 [facility] Heart Rate 2017-10-24 19:00:00 [facility] [place] Systolic (mm Hg) 2017-10-24 19:00:00 Alek rial Jose Diastolic (mm Hg) 2017-10-24 19:00:00 Mem orial [place] Systolic (mm Hg) 2017-10-24 18:10:00 Alek rial [place] Diastolic (mm Hg) 2017-10-24 18:10:00 Mem orial [place] Heart Rate 2017-10-24 18:10:00 [facility] Respitory Rate 2017-10-24 18:10:00 [facility] Heart Rate 2017-10-24 17:50:00 [facility] [place] Respitory Rate 2017-10-24 17:50:00 Mem[facility] Systolic (mm Hg) 2017-10-24 17:50:00 Alek rial Jose Diastolic (mm Hg) 2017-10-24 17:50:00 Mem orial [place] BMI Calculated 2017-10-24 17:05:00 [facility] [place] Height 2017-10-24 17:05:00 177.8 cm [facility] [place] Weight 2017-10-24 17:05:00 [facility] Weight 2013-09-23 21:30:00 [facility] Height 2013-09-23 21:30:00 [facility] [place] Heart Rate 2013-09-23 21:30:00 [facility] Diastolic (mm Hg) 2013-09-23 21:30:00 Mem orial Jose Systolic (mm Hg) 2013-09-23 21:30:00 Alek rial [place] Weight 2013-06-26 20:00:00 [facility] [place] Height 2013-06-26 20:00:00 [facility] Temperature Oral (F) 2013-06-26 20:00:00 98.6 F [facility] Heart Rate 2013-06-26 20:00:00 [facility] [place] Diastolic (mm Hg) 2013-06-26 20:00:00 Mem o[facility] [place] Systolic (mm Hg) 2013-06-26 20:00:00 Alek rial [place] Weight 2013-06-17 15:45:00 [facility] [place] Height 2013-06-17 15:45:00 [facility] Temperature Oral (F) 2013-06-17 15:45:00 98.4 F [facility] [place] Heart Rate 2013-06-17 15:45:00 [facility] [place] Diastolic (mm Hg) 2013-06-17 15:45:00 Mem orial [place] Systolic (mm Hg) 2013-06-17 15:45:00 Alek rial [place] Weight 2013-03-04 21:15:00 [facility] [place] Height 2013-03-04 21:15:00 [facility] [place] Temperature Oral (F) 2013-03-04 21:15:00 98.6 F [facility] Heart Rate 2013-03-04 21:15:00 [facility] Diastolic (mm Hg) 2013-03-04 21:15:00 Mem orial Jose Systolic (mm Hg) 2013-03-04 21:15:00 Alek rial [place] Weight 2013-02-13 20:30:00 [facility] [place] Height 2013-02-13 20:30:00 [facility] Heart Rate 2013-02-13 20:30:00 [facility] [place] Diastolic (mm Hg) 2013-02-13 20:30:00 Mem orial Jose Systolic (mm Hg) 2013-02-13 20:30:00 Alek rial [place] Weight 2013-01-17 20:00:00 [facility] Height 2013-01-17 20:00:00 [facility] [place] Temperature Oral (F) 2013-01-17 20:00:00 99.0 F [facility] Heart Rate 2013-01-17 20:00:00 [facility] [place] Diastolic (mm Hg) 2013-01-17 20:00:00 Mem orial Jose Systolic (mm Hg) 2013-01-17 20:00:00 Alek rial Jose Procedures Procedure Date / Time Performed Performing Clinician [facility] e Computed tomography of brain without radiopaque contrast 201 02-26-10 00:00:00 CLAIREWENDY [facility] Computed tomography of cervical spine without contrast 04-27 00:00:00 CLAIREWENDY [facility] Computed tomography of abdomen and pelvis with contrast 2018 00:00:00 WENDY RANGEL [facility] Echo guide for biopsy 2019-04-02 00:00:00 ADOLFO GERMAIN [facility] CT of abdomen and pelvis without contrast 2019-03-16 00:00:00 [facility] Computed tomography of brain without radiopaque contrast 201 02-24-07 00:00:00 DAYNA GOULD [facility] BYPASS CEREB VENT TO PERITON CAV W SYNTH SUB, OPEN 2019-01-16 5 00:00:00 BRI SCHROEDER [facility] Magnetic resonance imaging of brain without contrast 2019-01 00:00:00 ZHAOBRI VASQUEZ [facility] DRAINAGE OF SPINAL CANAL, PERCUTANEOUS APPROACH, DIAGNOSTIC 2019-01-27 00:00:00 MIYA LEHMAN [facility] Computed tomography of brain without radiopaque contrast 201 02-23-07 00:00:00 DAYNA GOULD [facility] Computed tomography of abdomen and pelvis with contrast 2018 00:00:00 JAMILALDAYNA Felix [facility] Myelography via lumbar injection, includ [facility] radiological supervision and interpretation; lumbosacral 2018-04-02 19:02:00 [facility] Spinal fusion 2017-11-19 05:00:00 [facility] Exploratory lumbar laminectomy 1984-06-18 00:00:00 [facility] Cataract extraction and insertion of intraocular lens [facility] Lumbar spinal fusion [facility] Rotator cuff repair [facility] Plan of Care Planned Activity Planned Date Details Comments Source Future Scheduled Test 2020-02-17 00:00:00 INFLUENZA VACCINE [code = INFLUENZA VACCINE] [facility] Future Scheduled Test 2013 00:00:00 65+ PNEUMOCOCCAL V ACCINE (2 of 2 - PPSV23) [code = 65+ PNEUMOCOCCAL VACCINE (2 of 2 - PPSV23)] [facility] Future Scheduled Test 1998 00:00:00 COLONOSCOPY SCREEN ING [code = COLONOSCOPY SCREENING] [facility] Scheduled Test 1998 00:00:00 SHINGLES VACCINES (#1) [code = SHINGLES VACCINES (#1)] [facility] Future Scheduled Test 1958 00:00:00 DIABETIC FOOT EXAM [code = DIABETIC FOOT EXAM] [facility] Future Scheduled Test 1958 00:00:00 URINE MICROALBUMIN [code = URINE MICROALBUMIN] [facility] Future Scheduled Test 1948 00:00:00 DIABETIC RETINAL E YE EXAM [code = DIABETIC RETINAL EYE EXAM] [facility] Encounters Start Date/Time End Date/Time Encounter Type Admission Type [facility] Care Department Encounter ID Source 2019-08-24 19:06:00 2019-08-24 22:21:00 Departed Emergency Room [facility] [id number] [facility] 2019-05-05 12:46:00 2019-05-08 11:30:00 Discharged Inpatient [facility] [id number] [facility] 2019-04-27 18:25:00 2019-04-30 13:24:00 Discharged Inpatient 1 RAMOS MEDRANO [facility] [id number] [facility] 2019-04-02 08:14:00 2019-04-02 08:14:00 Registered Clinic 3 ADOLFO GERMAIN [facility] [id number] [facility] 2019-03-16 00:51:00 2019-03-16 09:54:00 Departed Emergency Room 1 DARIO HERNANDEZ [facility] [id number] [facility] 2019-03-03 13:15:00 2019-03-03 13:30:00 Departed Emergency Room [facility] [id number] [facility] 2019-02-23 09:46:00 2019-02-24 15:05:00 Discharged Inpatient 1 DAYNA SHAH [facility] [id number] [facility] 2019-01-22 23:59:00 2019-02-01 14:54:00 Discharged Inpatient 1 INEZ OLVERA [facility] [id number] [facility] 2019-01-17 13:40:00 2019-01-17 13:40:00 Outpatient [facility] [id number] 2019-01-09 19:45:00 2019-01-09 22:32:00 Departed Emergency Room [facility] [id number] [facility] 2018-07-25 05:35:00 2018-07-27 17:36:00 Discharged Inpatient 1 JOHANNA CHRISTINE [facility] [id number] [facility] 2018-04-02 12:33:00 2018-04-02 23:59:00 Outpatient Mark Forrester [facility] [id number] 2018-02-07 13:00:00 2018-02-07 13:00:00 Outpatient Mark Forrester [facility] [id number] 2017-11-19 06:39:00 2017-11-22 13:02:00 Outpatient Mark Finney [facility] [id number] 2017-10-24 10:38:00 2017-10-24 23:59:00 Outpatient Mark Finney [facility] [id number] 2017-10-24 10:38:00 2017-10-24 23:59:00 Outpatient Mark Finney [facility] [id number] 2014-01-12 12:12:00 2014-01-12 12:12:00 Outpatient [facility] [id number] eClinicalWorks 2013-11-25 12:57:00 2013-11-25 12:57:00 Outpatient [facility] [id number] eClinicalWorks 2013-11-12 10:46:00 2013-11-12 10:46:00 Outpatient [facility] [id number] eClinicalWorks 2013-09-23 16:30:00 2013-09-23 16:30:00 Outpatient [facility] [id number] eClinicalWorks 2013-08-13 10:00:50 2013-08-13 10:00:49 Outpatient [facility] [id number] 2013-06-26 14:00:00 2013-06-26 14:00:00 Outpatient [facility] [id number] eClinicalWorks 2013-06-23 12:13:00 2013-06-23 12:13:00 Outpatient [facility] [id number] eClinicalWorks 2013-06-18 13:50:00 2013-06-18 13:50:00 Outpatient [facility] [id number] eClinicalWorks 2013-06-17 09:45:00 2013-06-17 09:45:00 Outpatient [facility] [id number] eClinicalWorks 2013-05-09 09:43:00 2013-05-09 09:43:00 Outpatient [facility] [id number] eClinicalWorks 2013-02-13 15:30:00 2013-02-13 15:30:00 Outpatient [facility] [id number] eClinicalWorks 2013-02-10 10:46:00 2013-02-10 10:46:00 Outpatient [facility] [id number] eClinicalWorks 2013-01-17 15:00:00 2013-01-17 15:00:00 Outpatient [facility] [id number] eClinicalWorks 2012-06-29 14:01:56 2012-06-29 14:01:40 Outpatient [facility] [id number] Results Test Description Test Time Test Comments Results Result Comments Source FÉLIX Steiner/NICKOLAS 2019-08-24 21:29:00 [place] [id number] Patient Name: VU ALVAREZ MR #: [id number] : 1950 Age/Sex: 69/M Req #: [id number] Adm Physician: Ordered by: DARIO CAMPBELL [employer] Report #: [id number] Location: Room/Bed: Procedure: [id number] DX/RIBS UNILAT W/CXR Exam Date: 08/24/19 Exam Time: 2049 REPORT STATUS: Signed EXAMINATION: X-ray right RIBS 5 views INDICATION: Fall, right rib pain COMPARISON: Abdominal CT 04/27/2019, chest x-ray 04/27/2019 FINDINGS: TUBES and LINES: Partially visualized ventriculoperitoneal shunt with tip in the right abdomen. LUNGS: Normal lung volumes. Lungs are clear. No consolidations. PLEURA: No pleural effusion or pneumothorax. HEART AND MEDIASTINUM: The cardiomediastinal silhouette is unremarkable. BONES AND SOFT TISSUES: No acute osseous lesion. Soft tissues are unremarkable. Fixation hardware in the lumbar spine. Degenerative changes in the right shoulder and spine. UPPER ABDOMEN: No free air under the diaphragm. IMPRESSION: No acute thoracic radiographic abnormality. No acute displaced rib fracture. Degenerative changes in the right shoulder. Signed by: Ravin Yusuf DO on 08/24/2019 9:32 PM Dictated By: RAVIN YUSUF DO 31 Transcribed By: VIOLA on 08/24/192131 COPY TO: DARIO CAMPBELL NP Urine Culture 2019-05-09 06:20:00 Test Item Urine Culture (test code = 630-4) No Result Data Provided [facility] [id number] 07:32:00* Test Item Value Reference Range Interpretation Comments Bedside Glucose (test code = 82298-0) 180 70-120 H Meter ID: [id number] [facility] Glucose 2019-05-08 07:32:00* Test Item Value Reference Range Interpretation Comments Bedside Glucose (test code = 08505-8) 180 70-120 H Meter ID: [id number]. [facility] Center[facility] Level 2019-05-08 03:20:00* Test Item Value Reference Range Interpretation Comments Sodium Level (test code = 2951-2) 136 136-145 [facility] [id number] 03:20:00* Test Item Value Reference Range Interpretation Comments Potassium Level (test code = 2823-3) 3.5 3.5-5.1 [facility] [id number] 03:20:00* Test Item Value Reference Range Interpretation Comments Chloride Level (test code = 2075-0) 102 98-107 [facility] Dallas[facility] Dioxide [id number] 03:20:00* Test Item Value Reference Range Interpretation Comments Carbon Dioxide Level (test code = 2028-9) 25 22-29 [facility] Dallas[facility]ion [id number] 03:20:00* Test Item Value Reference Range Interpretation Comments Anion Gap (test code = 08295-5) 12.5 8-16 [facility] Urea [id number] 03:20:00* Test Item Value Reference Range Interpretation Comments Blood Urea Nitrogen (test code = 3094-0) 10 7-26 [facility] Dallas[facility]inine2019-11-21 03:20:00* Test Item Value Reference Range Interpretation Comments Creatinine (test code = 2160-0) 0.78 0.72-1.25 [facility]/Creatinine [id number] 03:20:00* Test Item Value Reference Range Interpretation Comments BUN/Creatinine Ratio (test code = 3097-3) 13 6- [facility] Glomerular Filtration Rate 2019-05-08 03:20:00* Test Item Value Reference Range Interpretation Comments Estimat Glomerular Filtration Rate (test code = 983393792) > 60 >60 Ranges were taken from the National Kidney Disease Education Program and the [facility] Foundation literature.Reference ranges:60 or greater: Pbqxno27-78 ( for 3 consecutive months): Chronic kidney disease 15 or less: Kidney failureTexas Health Presbyterian DallasGlucose [id number] 03:20:00* Test Item Value Reference Range Interpretation Comments Glucose Level (test code = TTB9034) 136 74-118 H [facility] DallasCalcium [id number] 03:20:00* Test Item Value Reference Range Interpretation Comments Calcium Level (test code = 72826-5) 9.2 8.4-10.2 [facility] [id number] 03:20:00* Test Item Value Reference Range Interpretation Comments Sodium Level (test code = 2951-2) 136 136-145 [facility]assium [id number] 03:20:00* Test Item Value Reference Range Interpretation Comments Potassium Level (test code = 2823-3) 3.5 3.5-5.1 [facility] DallasChloride [id number] 03:20:00* Test Item Value Reference Range Interpretation Comments Chloride Level (test code = 2075-0) 102 98-107 [facility] Dallas[facility] Dioxide [id number] 03:20:00* Test Item Value Reference Range Interpretation Comments Carbon Dioxide Level (test code = 2028-9) 25 22-29 [facility] DallasAnion [id number] 03:20:00* Test Item Value Reference Range Interpretation Comments Anion Gap (test code = 99138-7) 12.5 8-16 [facility] Urea [id number] 03:20:00* Test Item Value Reference Range Interpretation Comments Blood Urea Nitrogen (test code = 3094-0) 10 7-26 [facility] Dallas[facility]inine2019-11-21 03:20:00* Test Item Value Reference Range Interpretation Comments Creatinine (test code = 2160-0) 0.78 0.72-1.25 [facility]/Creatinine [id number] 03:20:00* Test Item Value Reference Range Interpretation Comments BUN/Creatinine Ratio (test code = 3097-3) 13 6-25 [facility] [facility]Estimat Glomerular Filtration Rate 2019-05-08 03:20:00* Test Item Value Reference Range Interpretation Comments Estimat Glomerular Filtration Rate (test code = 832227671) > 60 >60 Ranges were taken from the National Kidney Disease Education Program and the [facility] literature.Reference ranges:60 or greater: Xokyrv61-29 ( for 3 consecutive months): Chronic kidney disease 15 or less: Kidney failureTexas Health [facility]byterian DallasGlucose Gfvlm4951-83-03 03:20:00* Test Item Value Reference Range Interpretation Comments Glucose Level (test code = RHE2515) 136 74-118 H [facility] DallasCalcium Qqrqv1332-61-33 03:20:00* Test Item Value Reference Range Interpretation Comments Calcium Level (test code = 69645-9) 9.2 8.4-10.2 [facility] DallasWhite Blood Basba5241-50-17 03:03:00* Test Item Value Reference Range Interpretation Comments White Blood Count (test code = 6690-2) 15.60 4.8-10.8 H [facility] DallasRed Blood Bzojz5313-10-71 03:03:00* Test Item Value Reference Range Interpretation Comments Red Blood Count (test code = 789-8) 4.49 4.3-5.7 [facility] DallasHemoglobin2019-11-21 03:03:00* Test Item Value Reference Range Interpretation Comments Hemoglobin (test code = 23476-3) 13.8 14.0-18.0 L [facility] DallasHematocrit2019-11-21 03:03:00* Test Item Value Reference Range Interpretation Comments Hematocrit (test code = 4544-3) 39.4 38.2-49.6 [facility] DallasMean Corpuscular Mepayg6272-26-25 03:03:00* Test Item Value Reference Range Interpretation Comments Mean Corpuscular Volume (test code = 787-2) 87.8 81-99 [facility] DallasMean Corpuscular Seggakgxyl7056-52-99 03:03:00* Test Item Value Reference Range Interpretation Comments Mean Corpuscular Hemoglobin (test code = 785-6) 30.7 28-32 [facility] DallasMean Corpuscular Hemoglobin Concent 2019-05-08 03:03:00* Test Item Value Reference Range Interpretation Comments Mean Corpuscular Hemoglobin Concent (test code = 786-4) 35.0 31-35 [facility] DallasRed Cell Distribution Lcuaz1636-10-29 03:03:00* Test Item Value Reference Range Interpretation Comments Red Cell Distribution Width (test code = 11164-5) 12.8 11.7 -14.4 [facility] DallasPlatelet Bloek3300-69-34 03:03:00* Test Item Value Reference Range Interpretation Comments Platelet Count (test code = 777-3) 282 140-360 [facility] DallasNeutrophils (%) (Auto)2019-05-08 03:03:00 * Test Item Value Reference Range Interpretation Comments Neutrophils (%) (Auto) (test code = 02225-1) 64.1 38.7-80.0 [facility] DallasLymphocytes (%) (Auto)2019-05-08 03:03:00 * Test Item Value Reference Range Interpretation Comments Lymphocytes (%) (Auto) (test code = 736-9) 22.6 18.0-39.1 [facility] DallasMonocytes (%) (Auto)2019-05-08 03:03:00* Test Item Value Reference Range Interpretation Comments Monocytes (%) (Auto) (test code = 5905-5) 9.3 4.4-11.3 [facility] DallasEosinophils (%) (Auto)2019-05-08 03:03:00 * Test Item Value Reference Range Interpretation Comments Eosinophils (%) (Auto) (test code = 713-8) 2.8 0.0-6.0 [facility] DallasBasophils (%) (Auto)2019-05-08 03:03:00* Test Item Value Reference Range Interpretation Comments Basophils (%) (Auto) (test code = 706-2) 0.6 0.0-1.0 [facility] DallasIM GRANULOCYTES %2019-05-08 03:03:00* Test Item Value Reference Range Interpretation Comments IM GRANULOCYTES % (test code = IM GRANULOCYTES %) 0.6 0.0- 1.0 [facility] DallasNeutrophils # (Auto)2019-05-08 03:03:00* Test Item Value Reference Range Interpretation Comments Neutrophils # (Auto) (test code = 751-8) 10.0 2.1-6.9 H [facility] DallasLymphocytes # (Auto)2019-05-08 03:03:00* Test Item Value Reference Range Interpretation Comments Lymphocytes # (Auto) (test code = 52358-8) 3.5 1.0-3.2 H [facility] DallasMonocytes # (Auto)2019-05-08 03:03:00* Test Item Value Reference Range Interpretation Comments Monocytes # (Auto) (test code = 742-7) 1.5 0.2-0.8 H [facility] DallasEosinophils # (Auto)2019-05-08 03:03:00* Test Item Value Reference Range Interpretation Comments Eosinophils # (Auto) (test code = 711-2) 0.4 0.0-0.4 [facility] DallasBasophils # (Auto)2019-05-08 03:03:00* Test Item Value Reference Range Interpretation Comments Basophils # (Auto) (test code = 704-7) 0.1 0.0-0.1 [facility] DallasAbsolute Immature Granulocyte (auto 2019-05-08 03:03:00* Test Item Value Reference Range Interpretation Comments Absolute Immature Granulocyte (auto (ene t code = Absolute Immature Granulocyte (auto) 0.10 0-0.1 [facility] DallasWhite Blood Nfdur1076-77-82 03:03:00* Test Item Value Reference Range Interpretation Comments White Blood Count (test code = 6690-2) 15.60 4.8-10.8 H [facility] DallasRed Blood Zvgla2373-05-73 03:03:00* Test Item Value Reference Range Interpretation Comments Red Blood Count (test code = 789-8) 4.49 4.3-5.7 [facility] DallasHemoglobin2019-11-21 03:03:00* Test Item Value Reference Range Interpretation Comments Hemoglobin (test code = 70295-4) 13.8 14.0-18.0 L [facility] DallasHematocrit2019-11-21 03:03:00* Test Item Value Reference Range Interpretation Comments Hematocrit (test code = 4544-3) 39.4 38.2-49.6 [facility] DallasMean Corpuscular Ggxbte8662-24-08 03:03:00* Test Item Value Reference Range Interpretation Comments Mean Corpuscular Volume (test code = 787-2) 87.8 81-99 [facility] DallasMean Corpuscular Ledqdocrbx2498-37-40 03:03:00* Test Item Value Reference Range Interpretation Comments Mean Corpuscular Hemoglobin (test code = 785-6) 30.7 28-32 [facility] DallasMean Corpuscular Hemoglobin Concent 2019-05-08 03:03:00* Test Item Value Reference Range Interpretation Comments Mean Corpuscular Hemoglobin Concent (test code = 786-4) 35.0 31-35 [facility] DallasRed Cell Distribution Uttqc6893-13-08 03:03:00* Test Item Value Reference Range Interpretation Comments Red Cell Distribution Width (test code = 46128-9) 12.8 11.7 -14.4 [facility] DallasPlatelet Vafog6957-43-75 03:03:00* Test Item Value Reference Range Interpretation Comments Platelet Count (test code = 777-3) 282 140-360 [facility] DallasNeutrophils (%) (Auto)2019-05-08 03:03:00 * Test Item Value Reference Range Interpretation Comments Neutrophils (%) (Auto) (test code = 69608-5) 64.1 38.7-80.0 [facility] DallasLymphocytes (%) (Auto)2019-05-08 03:03:00 * Test Item Value Reference Range Interpretation Comments Lymphocytes (%) (Auto) (test code = 736-9) 22.6 18.0-39.1 [facility] DallasMonocytes (%) (Auto)2019-05-08 03:03:00* Test Item Value Reference Range Interpretation Comments Monocytes (%) (Auto) (test code = 5905-5) 9.3 4.4-11.3 [facility] DallasEosinophils (%) (Auto)2019-05-08 03:03:00 * Test Item Value Reference Range Interpretation Comments Eosinophils (%) (Auto) (test code = 713-8) 2.8 0.0-6.0 [facility] DallasBasophils (%) (Auto)2019-05-08 03:03:00* Test Item Value Reference Range Interpretation Comments Basophils (%) (Auto) (test code = 706-2) 0.6 0.0-1.0 [facility] DallasIM GRANULOCYTES %2019-05-08 03:03:00* Test Item Value Reference Range Interpretation Comments IM GRANULOCYTES % (test code = IM GRANULOCYTES %) 0.6 0.0- 1.0 [facility] DallasNeutrophils # (Auto)2019-05-08 03:03:00* Test Item Value Reference Range Interpretation Comments Neutrophils # (Auto) (test code = 751-8) 10.0 2.1-6.9 H [facility] DallasLymphocytes # (Auto)2019-05-08 03:03:00* Test Item Value Reference Range Interpretation Comments Lymphocytes # (Auto) (test code = 13344-4) 3.5 1.0-3.2 H [facility] DallasMonocytes # (Auto)2019-05-08 03:03:00* Test Item Value Reference Range Interpretation Comments Monocytes # (Auto) (test code = 742-7) 1.5 0.2-0.8 H [facility] DallasEosinophils # (Auto)2019-05-08 03:03:00* Test Item Value Reference Range Interpretation Comments Eosinophils # (Auto) (test code = 711-2) 0.4 0.0-0.4 [facility] DallasBasophils # (Auto)2019-05-08 03:03:00* Test Item Value Reference Range Interpretation Comments Basophils # (Auto) (test code = 704-7) 0.1 0.0-0.1 [facility] DallasAbsolute Immature Granulocyte (auto 2019-05-08 03:03:00* Test Item Value Reference Range Interpretation Comments Absolute Immature Granulocyte (auto (ene t code = Absolute Immature Granulocyte (auto) 0.10 0-0.1 [facility] DallasUrine Jsjbvfh1139-46-82 09:58:00* Test Item Value Reference Range Interpretation Comments Urine Culture (test code = 630-4) No Result Data Provided [facility] DallasPhosphorus Bdzav4180-12-25 06:52:00* Test Item Value Reference Range Interpretation Comments Phosphorus Level (test code = VQA4070) 2.2 2.3-4.7 L [facility] DallasMagnesium Bfjuq6099-54-73 06:52:00* Test Item Value Reference Range Interpretation Comments Magnesium Level (test code = 79928-3) 1.5 1.3-2.1 [facility] DallasTotal Qthhftyxj1038-56-62 06:52:00* Test Item Value Reference Range Interpretation Comments Total Bilirubin (test code = 1975-2) 0.5 0.2-1.2 [facility] DallasAspartate Amino Transf (AST/SGOT) 2019-05-06 06:52:00* Test Item Value Reference Range Interpretation Comments Aspartate Amino Transf (AST/SGOT) (test code = Aspartate Amino Transf (AST/SGOT)) 16 5-34 [facility] DallasAlanine Aminotransferase (ALT/SGPT) 2019-05-06 06:52:00* Test Item Value Reference Range Interpretation Comments Alanine Aminotransferase (ALT/SGPT) (test code = 1742-6) 13 0-55 [facility] DallasTotal Bjgkqiv2872-99-51 06:52:00* Test Item Value Reference Range Interpretation Comments Total Protein (test code = 2885-2) 7.3 6.5-8.1 [facility] DallasAlbumin2019-11-19 06:52:00* Test Item Value Reference Range Interpretation Comments Albumin (test code = 1751-7) 3.4 3.5-5.0 L [facility] DallasGlobulin2019-11-19 06:52:00* Test Item Value Reference Range Interpretation Comments Globulin (test code = 84845-8) 3.9 2.3-3.5 H [facility] DallasAlbumin/Globulin Yjsyo1948 06:52:00 * Test Item Value Reference Range Interpretation Comments Albumin/Globulin Ratio (test code = 1759-0) 0.9 0.8-2.0 [facility] DallasAlkaline Avjvfpqdeqt0031-72-04 06:52:00* Test Item Value Reference Range Interpretation Comments Alkaline Phosphatase (test code = 6768-6) 96 40-150 [facility] DallasPhosphorus Ynvpl7991-63-37 06:52:00* Test Item Value Reference Range Interpretation Comments Phosphorus Level (test code = PUV0740) 2.2 2.3-4.7 L [facility] DallasMagnesium Bwklq4175-47-33 06:52:00* Test Item Value Reference Range Interpretation Comments Magnesium Level (test code = 59035-8) 1.5 1.3-2.1 [facility] DallasTotal Yjdexsycc2260-02-36 06:52:00* Test Item Value Reference Range Interpretation Comments Total Bilirubin (test code = 1975-2) 0.5 0.2-1.2 [facility] DallasAspartate Amino Transf (AST/SGOT) 2019-05-06 06:52:00* Test Item Value Reference Range Interpretation Comments Aspartate Amino Transf (AST/SGOT) (test code = Aspartate Amino Transf (AST/SGOT)) 16 5-34 [facility] DallasAlanine Aminotransferase (ALT/SGPT) 2019-05-06 06:52:00* Test Item Value Reference Range Interpretation Comments Alanine Aminotransferase (ALT/SGPT) (test code = 1742-6) 13 0-55 [facility] DallasTotal Xddqpmx6789-82-88 06:52:00* Test Item Value Reference Range Interpretation Comments Total Protein (test code = 2885-2) 7.3 6.5-8.1 [facility] DallasAlbumin2019-11-19 06:52:00* Test Item Value Reference Range Interpretation Comments Albumin (test code = 1751-7) 3.4 3.5-5.0 L [facility] DallasGlobulin2019-11-19 06:52:00* Test Item Value Reference Range Interpretation Comments Globulin (test code = 69946-1) 3.9 2.3-3.5 H [facility] DallasAlbumin/Globulin Qubpp8364-34-28 06:52:00 * Test Item Value Reference Range Interpretation Comments Albumin/Globulin Ratio (test code = 1759-0) 0.9 0.8-2.0 [facility] DallasAlkaline Utdfetmhdtq2745-35-48 06:52:00* Test Item Value Reference Range Interpretation Comments Alkaline Phosphatase (test code = 6768-6) 96 40-150 [facility] DallasUrine FYG1876-70-98 11:53:00* Test Item Value Reference Range Interpretation Comments Urine WBC (test code = 5821-4) >50 0-5 H [facility] DallasUrine DGG4430-39-06 11:53:00* Test Item Value Reference Range Interpretation Comments Urine RBC (test code = 30284-3) >50 0-5 H [facility] DallasUrine Dmeccvjr0979-15-48 11:53:00* Test Item Value Reference Range Interpretation Comments Urine Bacteria (test code = 54112-7) MANY NONE H [facility] DallasUrine Epithelial Opepy8437-20-57 11:53:00 * Test Item Value Reference Range Interpretation Comments Urine Epithelial Cells (test code = 09990-2) MODERATE NONE [facility] Qqcxa4745-94-32 11:53:00* Test Item Value Reference Range Interpretation Comments Urine Mucus (test code = 8247-9) MODERATE RARE H [facility] DallasUrine Zetlm9954-07-74 11:53:00* Test Item Value Reference Range Interpretation Comments Urine Yeast (test code = 61889-4) MANY NONE H [facility] DallasUrine LUB9760-62-95 11:53:00* Test Item Value Reference Range Interpretation Comments Urine WBC (test code = 5821-4) >50 0-5 H [facility] MXL9654-63-09 11:53:00* Test Item Value Reference Range Interpretation Comments Urine RBC (test code = 80288-9) >50 0-5 H [facility] DallasUrine Jbtdmtaz9802-32-29 11:53:00* Test Item Value Reference Range Interpretation Comments Urine Bacteria (test code = 19901-5) MANY NONE H [facility] DallasUrine Epithelial Bdhad9326-86-50 11:53:00 * Test Item Value Reference Range Interpretation Comments Urine Epithelial Cells (test code = 51477-3) MODERATE NONE [facility] Gjrbh1068-84-86 11:53:00* Test Item Value Reference Range Interpretation Comments Urine Mucus (test code = 8247-9) MODERATE RARE H [facility] Lsmym5094-41-71 11:53:00* Test Item Value Reference Range Interpretation Comments Urine Yeast (test code = 42540-3) MANY NONE H [facility] Wpjoo1805-12-56 11:27:00* Test Item Value Reference Range Interpretation Comments Urine Color (test code = 5778-6) YELLOW YELLOW [facility] Lbmbmun2657-07-44 11:27:00* Test Item Value Reference Range Interpretation Comments Urine Clarity (test code = 00989-9) CLOUDY CLEAR H [facility] Specific Dsareqn2248-80-55 11:27:00 * Test Item Value Reference Range Interpretation Comments Urine Specific [place] (test code = 5811-5) 1.025 1.010-1.02 5 [facility] DallasUrine cK4942-09-04 11:27:00* Test Item Value Reference Range Interpretation Comments Urine pH (test code = 40993-6) 6 5-7 [facility] DallasUrine Leukocyte Viafioeu9168-66-26 11:27:00* Test Item Value Reference Range Interpretation Comments Urine Leukocyte Esterase (test code = 81574-4) SMALL NEGATIV E [facility] DallasUrine Xddxtpq7304-25-84 11:27:00* Test Item Value Reference Range Interpretation Comments Urine Nitrite (test code = 99441-6) NEGATIVE NEGATIVE [facility] DallasUrine Xughesk9681-67-79 11:27:00* Test Item Value Reference Range Interpretation Comments Urine Protein (test code = 28585-3) 1+ NEGATIVE H [facility] DallasUrine Glucose (UA)2019-05-05 11:27:00* Test Item Value Reference Range Interpretation Comments Urine Glucose (UA) (test code = 80853-8) 3+ NEGATIVE [facility] DallasUrine Eoezacr3087-71-20 11:27:00* Test Item Value Reference Range Interpretation Comments Urine Ketones (test code = 95961-1) NEGATIVE NEGATIVE [facility] DallasUrine Ngvkqowrhwyv8299-60-67 11:27:00* Test Item Value Reference Range Interpretation Comments Urine Urobilinogen (test code = 14173-3) 0.2 0.2-1 [facility] DallasUrine Gpdfvfovs9023-72-90 11:27:00* Test Item Value Reference Range Interpretation Comments Urine Bilirubin (test code = 1977-8) NEGATIVE NEGATIVE [facility] Yjwaw2151-38-11 11:27:00* Test Item Value Reference Range Interpretation Comments Urine Blood (test code = 80414-8) 3+ NEGATIVE [facility] DallasUrine Fnsax3532-60-43 11:27:00* Test Item Value Reference Range Interpretation Comments Urine Color (test code = 5778-6) YELLOW YELLOW [facility] DallasUrine Xnqviad7110-16-31 11:27:00* Test Item Value Reference Range Interpretation Comments Urine Clarity (test code = 98626-1) CLOUDY CLEAR H [facility] DallasUrine Specific Absexsj1206-85-39 11:27:00 * Test Item Value Reference Range Interpretation Comments Urine Specific [place] (test code = 5811-5) 1.025 1.010-1.02 5 [facility] DallasUrine iL4034-95-93 11:27:00* Test Item Value Reference Range Interpretation Comments Urine pH (test code = 13714-3) 6 5-7 [facility] DallasUrine Leukocyte Jrjxyglz6481-27-83 11:27:00* Test Item Value Reference Range Interpretation Comments Urine Leukocyte Esterase (test code = 99847-0) SMALL NEGATIV E [facility] DallasUrine Yevdmxn8115-11-05 11:27:00* Test Item Value Reference Range Interpretation Comments Urine Nitrite (test code = 99426-6) NEGATIVE NEGATIVE [facility] DallasUrine Omyvgxi8814-52-03 11:27:00* Test Item Value Reference Range Interpretation Comments Urine Protein (test code = 52447-8) 1+ NEGATIVE H [facility] DallasUrine Glucose (UA)2019-05-05 11:27:00* Test Item Value Reference Range Interpretation Comments Urine Glucose (UA) (test code = 71928-4) 3+ NEGATIVE [facility] DallasUrine Wdllmib6231-60-90 11:27:00* Test Item Value Reference Range Interpretation Comments Urine Ketones (test code = 15316-0) NEGATIVE NEGATIVE [facility] Mzwbdghdukgr2596-91-91 11:27:00* Test Item Value Reference Range Interpretation Comments Urine Urobilinogen (test code = 76800-3) 0.2 0.2-1 [facility] Kdnsbszqk3181-98-97 11:27:00* Test Item Value Reference Range Interpretation Comments Urine Bilirubin (test code = 1977-8) NEGATIVE NEGATIVE [facility] Fxaff9154-91-47 11:27:00* Test Item Value Reference Range Interpretation Comments Urine Blood (test code = 62747-9) 3+ NEGATIVE [facility] Lznyknw5425-67-06 16:38:00* Test Item Value Reference Range Interpretation Comments Blood Culture (test code = 50243665) NO GROWTH AFTER 5 DAYS, FINAL REPORT [facility] Swzphew9571-66-56 16:38:00* Test Item Value Reference Range Interpretation Comments Blood Culture (test code = 12576852) NO GROWTH AFTER 5 DAYS, FINAL REPORT [facility] DallasBedside Jefetvz5462-96-39 11:32:00* Test Item Value Reference Range Interpretation Comments Bedside Glucose (test code = 26425-8) 298 70-120 H Meter ID: [id number] Culture 2019-04-29 16:38:00* Test Item Value Reference Range Interpretation Comments Blood Culture (test code = 10018108) NO GROWTH AFTER 48 HOURS [facility] Emjzlej7019-16-82 14:54:00* Test Item Value Reference Range Interpretation Comments Urine Culture (test code = 630-4) No Result Data Provided [facility] Cduaudf7405-37-04 14:54:00* Test Item Value Reference Range Interpretation Comments Urine Culture (test code = 630-4) No Result Data Provided [facility] DallasUrine Qcewkon0960-70-69 14:54:00* Test Item Value Reference Range Interpretation Comments Urine Culture (test code = 630-4) No Result Data [facility]ided [facility] Xgzaj7238-58-97 05:16:00* Test Item Value Reference Range Interpretation Comments Sodium Level (test code = 2951-2) 136 136-145 [facility] DallasPotassium Gcdwd2027-24-42 05:16:00* Test Item Value Reference Range Interpretation Comments Potassium Level (test code = 2823-3) 3.4 3.5-5.1 L [facility] DallasChloride Gkmlq2621-69-07 05:16:00* Test Item Value Reference Range Interpretation Comments Chloride Level (test code = 2075-0) 100 98-107 [facility] DallasCarbon Dioxide Zrmht1627-14-08 05:16:00* Test Item Value Reference Range Interpretation Comments Carbon Dioxide Level (test code = 2028-9) 26 22-29 [facility] DallasAnion Jcl5228-13-82 05:16:00* Test Item Value Reference Range Interpretation Comments Anion Gap (test code = 78621-4) 13.4 8-16 [facility] DallasBlood Urea Szfnkece7280-09-11 05:16:00* Test Item Value Reference Range Interpretation Comments Blood Urea Nitrogen (test code = 3094-0) 11 7-26 [facility] DallasCreatinine2019-11-12 05:16:00* Test Item Value Reference Range Interpretation Comments Creatinine (test code = 2160-0) 0.86 0.72-1.25 [facility] DallasBUN/Creatinine Xxpps2189-60-49 05:16:00* Test Item Value Reference Range Interpretation Comments BUN/Creatinine Ratio (test code = 3097-3) 13 6-25 [facility] DallasEstimat Glomerular Filtration Rate 2019-04-29 05:16:00* Test Item Value Reference Range Interpretation Comments Estimat Glomerular Filtration Rate (test code = 469867663) > 60 >60 Ranges were taken from the National Kidney Disease Education Program and the [facility] literature.Reference ranges:60 or greater: Aoyhwq15-32 ( for 3 consecutive months): Chronic kidney disease 15 or less: Kidney failureTexas Health Presbyterian DallasGlucose Mvgmf0952-84-71 05:16:00* Test Item Value Reference Range Interpretation Comments Glucose Level (test code = GKJ3223) 211 74-118 H [facility] DallasCalcium Iduyk2117-84-80 05:16:00* Test Item Value Reference Range Interpretation Comments Calcium Level (test code = 97260-1) 9.5 8.4-10.2 [facility] DallasWhite Blood Lgzua5210-72-29 05:02:00* Test Item Value Reference Range Interpretation Comments White Blood Count (test code = 6690-2) 10.80 4.8-10.8 [facility] DallasRed Blood Onqmr5704-83-73 05:02:00* Test Item Value Reference Range Interpretation Comments Red Blood Count (test code = 789-8) 4.68 4.3-5.7 [facility] DallasHemoglobin2019-11-12 05:02:00* Test Item Value Reference Range Interpretation Comments Hemoglobin (test code = 82319-0) 14.0 14.0-18.0 [facility] DallasHematocrit2019-11-12 05:02:00* Test Item Value Reference Range Interpretation Comments Hematocrit (test code = 4544-3) 42.0 38.2-49.6 [facility] DallasMean Corpuscular Pbpxim9675-24-26 05:02:00* Test Item Value Reference Range Interpretation Comments Mean Corpuscular Volume (test code = 787-2) 89.7 81-99 [facility] DallasMean Corpuscular Nlkqtrxkmx3591-59-55 05:02:00* Test Item Value Reference Range Interpretation Comments Mean Corpuscular Hemoglobin (test code = 785-6) 29.9 28-32 [facility] DallasMean Corpuscular Hemoglobin Concent 2019-04-29 05:02:00* Test Item Value Reference Range Interpretation Comments Mean Corpuscular Hemoglobin Concent (test code = 786-4) 33.3 31-35 [facility] DallasRed Cell Distribution Hpxqo1735-32-42 05:02:00* Test Item Value Reference Range Interpretation Comments Red Cell Distribution Width (test code = 99285-3) 12.7 11.7 -14.4 [facility] DallasPlatelet Unmsa5152-77-80 05:02:00* Test Item Value Reference Range Interpretation Comments Platelet Count (test code = 777-3) 265 140-360 [facility] DallasNeutrophils (%) (Auto)2019-04-29 05:02:00 * Test Item Value Reference Range Interpretation Comments Neutrophils (%) (Auto) (test code = 43734-1) 62.0 38.7-80.0 [facility]ymph[facility] (%) (Auto)2019-04-29 05:02:00 * Test Item Value Reference Range Interpretation Comments Lymphocytes (%) (Auto) (test code = 736-9) 22.8 18.0-39.1 [facility] (%) (Auto)2019-04-29 05:02:00* Test Item Value Reference Range Interpretation Comments Monocytes (%) (Auto) (test code = 5905-5) 9.8 4.4-11.3 [facility]Eosinophils (%) (Auto)2019-04-29 05:02:00 * Test Item Value Reference Range Interpretation Comments Eosinophils (%) (Auto) (test code = 713-8) 3.7 0.0-6.0 [facility]ophils (%) (Auto)2019-04-29 05:02:00* Test Item Value Reference Range Interpretation Comments Basophils (%) (Auto) (test code = 706-2) 1.1 0.0-1.0 H [facility] DallasIM GRANULOCYTES %2019-04-29 05:02:00* Test Item Value Reference Range Interpretation Comments IM GRANULOCYTES % (test code = IM GRANULOCYTES %) 0.6 0.0- 1.0 [facility] DallasNeutrophils # (Auto)2019-04-29 05:02:00* Test Item Value Reference Range Interpretation Comments Neutrophils # (Auto) (test code = 751-8) 6.7 2.1-6.9 [facility] DallasLymphocytes # (Auto)2019-04-29 05:02:00* Test Item Value Reference Range Interpretation Comments Lymphocytes # (Auto) (test code = 44991-7) 2.5 1.0-3.2 [facility] DallasMonocytes # (Auto)2019-04-29 05:02:00* Test Item Value Reference Range Interpretation Comments Monocytes # (Auto) (test code = 742-7) 1.1 0.2-0.8 [facility]Eosinophils # (Auto)2019-04-29 05:02:00* Test Item Value Reference Range Interpretation Comments Eosinophils # (Auto) (test code = 711-2) 0.4 0.0-0.4 [facility] DallasBasophils # (Auto)2019-04-29 05:02:00* Test Item Value Reference Range Interpretation Comments Basophils # (Auto) (test code = 704-7) 0.1 0.0-0.1 [facility] DallasAbsolute Immature Granulocyte (auto 2019-04-29 05:02:00* Test Item Value Reference Range Interpretation Comments Absolute Immature Granulocyte (auto (ene t code = Absolute Immature Granulocyte (auto) 0.07 0-0.1 [facility]2019-11-12 04:00:00* Test Item Value Reference Range Interpretation Comments Ammonia (test code = 29589-3) 78 31-123 [facility]2019-11-12 04:00:00* Test Item Value Reference Range Interpretation Comments Ammonia (test code = 93272-3) 78 31-123 [facility]2019-11-12 04:00:00* Test Item Value Reference Range Interpretation Comments Ammonia (test code = 90839-0) 78 31-123 [facility] DallasLactic Acid Ovzsq5142-23-85 06:25:00* Test Item Value Reference Range Interpretation Comments Lactic Acid Level (test code = Lactic Acid Level) 2.2 0.5- 2.0 HH Results repeated and called to BRIAN PAULINO RN at 06 on 04/28/19 by Sammi gresham. Read back and verified.[facility] DallasLactic Acid Orscn4055-34-01 06:25:00* Test Item Value Reference Range Interpretation Comments Lactic Acid Level (test code = Lactic Acid Level) 2.2 0.5- 2.0 HH Results repeated and called to BRIAN PAULINO RN at 06 on 04/28/19 by Sammi gresham. Read back and verified.[facility] DallasLactic Acid Ibsev7406-05-69 06:25:00* Test Item Value Reference Range Interpretation Comments Lactic Acid Level (test code = Lactic Acid Level) 2.2 0.5- 2.0 HH Results repeated and called to BRIAN PAULINO RN at 06 on 04/28/19 by Sammi gresham. Read back and verified.[facility] DallasUrine WBC 2019-04-27 18:11:00* Test Item Value Reference Range Interpretation Comments Urine WBC (test code = 5821-4) 11-20 0-5 [facility] DallasU[facility] [id number] 18:11:00* Test Item Value Reference Range Interpretation Comments Urine RBC (test code = 11100-8) 6-10 0-5 [facility] Hwznrasp9282-85-35 18:11:00* Test Item Value Reference Range Interpretation Comments Urine Bacteria (test code = 04168-4) MODERATE NONE [facility] Epithelial Wawbp3466-55-99 18:11:00 * Test Item Value Reference Range Interpretation Comments Urine Epithelial Cells (test code = 44505-7) FEW NONE [facility] Wnyuj3066-63-39 18:06:00* Test Item Value Reference Range Interpretation Comments Urine Color (test code = 5778-6) YELLOW YELLOW [facility] Csgcwjg6446-99-34 18:06:00* Test Item Value Reference Range Interpretation Comments Urine Clarity (test code = 04508-9) SL CLOUDY CLEAR H [facility] DallasU[facility] Specific Xcfbvxm7435-56-64 18:06:00 * Test Item Value Reference Range Interpretation Comments Urine Specific [place] (test code = 5811-5) 1.010 1.010-1.02 5 [facility] [id number] 18:06:00* Test Item Value Reference Range Interpretation Comments Urine pH (test code = 74538-5) 6.5 5-7 [facility] Leukocyte Tlckktbj5521-74-95 18:06:00* Test Item Value Reference Range Interpretation Comments Urine Leukocyte Esterase (test code = 29521-2) MODERATE NEGATIV E [facility] Dallas[facility] Gjspgpu4245-66-73 18:06:00* Test Item Value Reference Range Interpretation Comments Urine Nitrite (test code = 78803-3) NEGATIVE NEGATIVE [facility] Wqsccpn2554-62-47 18:06:00* Test Item Value Reference Range Interpretation Comments Urine Protein (test code = 18554-1) NEGATIVE NEGATIVE [facility] Glucose (UA)2019-04-27 18:06:00* Test Item Value Reference Range Interpretation Comments Urine Glucose (UA) (test code = 23916-5) NEGATIVE NEGATIVE [facility] Irfablm2929-78-92 18:06:00* Test Item Value Reference Range Interpretation Comments Urine Ketones (test code = 08362-5) NEGATIVE NEGATIVE [facility] Wvbmtegqdnpn4303-04-06 18:06:00* Test Item Value Reference Range Interpretation Comments Urine Urobilinogen (test code = 49964-5) 0.2 0.2-1 [facility] Oyyronvbu3873-55-21 18:06:00* Test Item Value Reference Range Interpretation Comments Urine Bilirubin (test code = 1977-8) NEGATIVE NEGATIVE [facility] Polrz1601-67-62 18:06:00* Test Item Value Reference Range Interpretation Comments Urine Blood (test code = 63093-8) NEGATIVE NEGATIVE [facility] DallasCT ABDOMEN/PELVIS [id number] 17:52:00 [facility] [address] [address] Patient Name: VU ALVAREZ MR #: [id number] : 1950 Age/Sex: 68/M Req #: [id number] Adm Physician: Ordered by: WENDY RANGEL MD Report #: [id number] Location: ER Room/Bed: Procedure: [id number] CT/CT ABDOMEN/PELVIS W Exam Date: 04/27/19 Exam Deshaun e: 1720 REPORT STATUS: Signed CT Abdomen And Pelvis with Intravenous Contrast INDICATION: UTI lower abd pain [id number] TECHNIQUE: Thin collimation axial images obtained from the diaphragm to the level of the pubic symphysis following the unevent ful administration of 100 cc of low osmolar, nonionic intravenous contrast. Dose reduction techniques used: Automated exposure control, adjustment of the mAs and/or kVp according to patient size, standardized low-dose protocol, and/or iterative reconstruction technique. RADIATION DOSE: Total DLP: 865.4 mGy*cm Estimated effective dose: (DLP x 0.015 x size facto r) mSv CTDIvol has been reviewed. It is below the limits set by the Radia tion Protocol Committee (RPC). COMPARISON: CT abdomen/pelvis 03/16/2019. ABDOMEN FINDINGS: Lung Bases: Mild bibasilar air trapping. 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 Coronary artery calcifications are pres ent. Liver: Steatosis. No evidence for mass. Gallbladder: Present and contains multiple tiny calcified gallstones. No biliary ductal dilatation. Pancreas: Diffuse fatty atrophy without mass or ductal dilatation. Spleen: Normal in size. No evidence of mass.. Adrenal Glands: Mildly thickened. No mass. Kidneys: Right: Normal enhancement. No soft tissue mass. No hydronephrosis. Left: Normal enhancement. No soft tissue mass. No hyd ronephrosis. Lymph Nodes: No enlarged abdominal or periaortic lymph nodes. Aorta: Normal in diameter with scattered calcifications. Ventriculop eritoneal shunt loops in the medial right hemiabdomen and terminates in the le ft upper quadrant without surrounding fluid collection. There is a small amoun t of subcutaneous inflammation at the tube insertion site in the inferior righ t chest, stable. PELVIS FINDINGS: Bowel: Stomach: Distended with fluid but otherwise normal. Small Bowel: Normal in caliber with normal wall t hickness. Large Bowel: Diverticulosis coli, particular of the sigmoid colon. No associated inflammation. Remainder of the large bowel is normal in diameter with normal wall thickness. Appendix: Normal appendix. Bladder: Con tains a suprapubic catheter. The dubose appear thickened without perivesicular inflammation. Prostate gland: Mildly enlarged. Peritoneum/retroperiton eum: No free fluid or fluid collection. Bones: Bilateral pedicle screws in L2 and L3 are stable. Shanks right from L4 to S1 which are stable. No evid ence of hardware failure. A cyst is status post laminectomy from L3 to S1. No focal osseous lesions. IMPRESSION: 1. Diverticulosis coli, particula rly of the sigmoid colon. No CT findings of acute diverticulitis. 2. Me dical devices as described above. 3. Mild diffuse bladder wall thickening m ay be the result of cystitis, either acute or chronic. Bladder outlet obstruct ion from the prostate gland should also be considered. 4. Steatosis. Signed by: Dr. Lisa Pena MD on 04/27/2019 5:57 PM Dictated By: LISA PENA MD 56 Transcribed By: VIOLA on 04/27/191756 COPY TO: WENDY RANGEL MD ABDOMEN-1VIEW (KUB)2019-04-27 17:00:00 [place] [address] Patient Name: VU ALVAREZ MR #: [id number] : 1950 Age/Sex: 68/M Req #: [id number] Adm Physician: Ordered by: WENDY RANGEL MD Report #: [id number] Location: ER Room/Bed: Procedure: [id number] DX/ABDOMEN-1VIEW (KUB) Exam Date: 04/27/19 Exam Deshaun e: 1625 REPORT STATUS: Signed Ab domen/KUB INDICATION: Altered level of consciousness AMS 20190427 1625 Y COMPARISON: CT abdomen/pelvis 03/16/2019. FINDINGS: Toby ble, supine image obtained at 1626 hours. Medical Devices: Ventriculoperito wolf shunt is a chest in the mid epigastric region, loops in the medial right hemiabdomen and terminates in the left upper quadrant. Visualized shunt tubing is intact Bowel: Unremarkable bowel gas pattern. No dilated bowel loops Free air: None Abdominal calcifications: None Organomegaly: None Lung bases: Clear Bones: Stable pedicle screws and vertebral stabilizing bars in the lumbar spine. No evidence of hardware failure. No focal osseous lesions IMPRESSION: Unremarkable bowel gas pattern. Signed by: Dr Pratima Pena MD on 04/27/2019 5:01 PM Dictated By: LISA TALLEY MD 00 Transcr ibed By: VIOLA on 04/27/191700 COPY TO: WENDY RANGEL MD CT CERVICAL SPINE [id number] 16:59:00 [place] [address] Patient Name: VU ALVAREZ MR #: [id number] : 1950 Age/Sex: 68/M Req #: [id number] Adm Physician: RAMOS MEDRANO MD Ordered by: WENDY RANGEL MD Report #: [id number] Location: MED/SURG3 Room/Bed: 289-1 Procedure: 1110-[address]/CT CERVICAL SPINE WO Exam Date: 04/27/19 Exam T kevyn: 1600 REPORT STATUS: Signed CT CERVICAL SPINE WO HISTORY: 68-year-old male with altered mental status COMPARISON: CT cervical spine without contrast 07/25/2018 TECHNIQUE: CT of the cervical spine without contrast. Sagittal and coronal reformations wer e created. One or more of the following dose reduction techniques were used: Automated exposure control, adjustment of the mA and/or kV according to patien t size, and/or utilization of iterative reconstruction technique. FINDING S: Cervical lordosis is preserved. There is no scoliosis or subluxation . No fractures, compression deformity, or destructive osseous lesions are seen . Multilevel degenerative disc changes with posterior disc osteophyte com plexes from C2-C3 through C6-C7. No significant spinal canal stenosis. Multile kamran uncovertebral arthrosis, most prominent in the lower cervical spine. The craniocervical junction is intact. No gross spinal canal masses are seen. Lung apices are unremarkable were visualized. The paravertebral and parasp inal soft tissues are unremarkable. IMPRESSION: 1. No acute osseous a bnormalities. 2. Multilevel mild degenerative changes of cervical spine. This preliminary report was issued by Dr. Agustin Lombardi M.D. neuroradiology fellow at 1709 hours on 04/27/2019. Signed by: Radha Gtz on 04/28/2019 3:03 PM Dictated By: PHONG BUCKLEY MD Electronicall y Signed By: POHNG BUCKLEY MD on 04/28/19 6527 Transcribed By: VIOLA on 04/28/19 6173 COPY TO: WENDY RANGEL MD CHEST SINGLE (PORTABLE) 2019-04-27 16:57:[address] [address] Patient Name: VU ALVAREZ MR #: [id number] : 1950 Age/Sex: 68/M Req #: [id number] Adm Physician: Ordered by: WENDY RANGEL MD Report #: [id number] Location: ER Room/Bed: Procedure: [id number] DX/CHEST SINGLE (PORTABLE) Exam Date: 04/27/19 Exam Time: 1600 REPORT STATUS: Signed EXAMINATION: CHEST SINGLE (PORTABLE) COMPARISON: Chest x-ray 03/16/2019 INDICATION: UTI, confusion, altered level of consciousness AMS 20 468180 4398 Y DISCUSSION: Frontal view of the chest obtained at 1615 hours. HEART AND MEDIASTINUM: The cardiomediastinal silhouette is unremark able. LINES: Ventriculoperitoneal shunt tubing in the lower right neck i s redemonstrated. Shunt tubing within the chest is poorly visualized due to underpenetration of the image. LUNGS: The lungs are well inflated and abdoul r. No pneumonia or pulmonary edema. PLEURA: Mild eventration of the right diaphragm is stable. No pleural effusion or pneumothorax. BONES AND SOFT TISSUES: Degenerative changes and osteolysis of the distal left clavicle are stable. No new osseous findings. The soft tissues are normal. IMPRESSION : No acute cardiopulmonary disease. Signed by: Dr. Lisa Pena MD on 04/27/2019 5:02 PM Dictated By: LISA PENA MD 01 Transcribed By: VIOLA on 04/05 COPY TO: WENDY RANGEL MD CT BRAIN [id number] 16:41:00 [place] [address] Patient Name: VU ALVAREZ MR #: [id number] : 1950 Age/Sex: 68/M Req #: [id number] Adm Physician: RAMOS MEDRANO MD Ordered by: WENDY RANGEL MD Report #: [id number] Location: [place] [address] Room/Bed: [facility] Procedure: 1110-[address]/CT BRAIN WO Exam Date: 04/27/19 Exam Time: 1600 REPORT STATUS: Signed CT BRAIN WO HISTORY: 68-year-old male with altered mental status COMPARISON: C T brain without contrast 02/22/2019; MRI brain without contrast 01/27/2019 T ECHNIQUE: Noncontrast axial scans were obtained from skull base to the vertex . Coronal and sagittal reconstructions obtained from the axial data. One or more of the following dose reduction techniques were used: Automated exposure control, adjustment of the mA and/or kV according to patient size, and/or util ization of iterative reconstruction technique. DISCUSSION: Scalp/Sku ll: Subcutaneous shunt reservoir in the right parietal scalp, unchanged in pos ition with associated surgical defect in the right parietal skull. Brain sul ci: Mildly prominent. Ventricles: Right parietal approach ventricular shunt ca theter with tip in the posterior margin of the right lateral ventricle body, s imilar in position to the recent CT from February 2019. The ventricles are m oderately enlarged but similar in appearance to prior exam from 02/22/2019. For example the third ventricle measures approximately 1.2 cm in width and the lef t lateral ventricle body measures approximately 2.4 cm in width. No periventri cular hypodense foci to suggest transependymal flow. Focal hypodensities are i dentified in the bilateral frontal horns, the locule in the left frontal horn is new from February 2019. Extra-axial spaces: No masses or fluid collec tions. Parenchyma: Scattered hypodense foci in the subinsular white ma tter are small vessel ischemic changes, similar to prior exam. No mass, h emorrhage, or large vascular territory acute infarct. Vessels: Atherosclero tic calcifications within bilateral intradural vertebral arteries and carotid siphons. Dural sinuses: No abnormal densities. Sellar/Suprasellar region: I ntact. No masses. Skull base: Intact. Incidental findings: None. IMP RESSION: 1. No acute intracranial abnormalities. 2. Unchanged position of right parietal approach ventricular shunt catheter with nondependent hypodensi ties in the bilateral frontal horns. Hypodensity focus in the left frontal hor n is new from prior exam. Chronic findings: Stable appearance of moderate ventriculomegaly compared to prior exam on 02/22/2019. Moderate chronic micro vascular ischemic changes. This preliminary report was issued by Dr. Agustin Lombardi M.D. neuroradiology fellow at 1658 hours on 04/27/2019. Signed by: DR Phong Madrigal M.D. on 04/28/2019 3:01 PM Dictated By: TO ROSA M BUCKLEY MD 1501 Transcribed By: VIOLA on 04/28/19 1501 COPY TO: WENDY RANGEL MD Total Xgdsupmyl7128-66-53 16:24:00* Test Item Value Reference Range Interpretation Comments Total Bilirubin (test code = 1975-2) 0.3 0.2-1.2 [facility] Dallas[facility]artate Amino Transf (AST/SGOT) 2019-04-27 16:24:00* Test Item Value Reference Range Interpretation Comments Aspartate Amino Transf (AST/SGOT) (test code = Aspartate Amino Transf (AST/SGOT)) 15 5-34 [facility] DallasAlanine Aminotransferase (ALT/SGPT) 2019-04-27 16:24:00* Test Item Value Reference Range Interpretation Comments Alanine Aminotransferase (ALT/SGPT) (test code = 1742-6) 20 0-55 [facility] DallasTotal Huuoizk5002-37-30 16:24:00* Test Item Value Reference Range Interpretation Comments Total Protein (test code = 2885-2) 7.6 6.5-8.1 [facility] DallasAlbumin2019-11-10 16:24:00* Test Item Value Reference Range Interpretation Comments Albumin (test code = 1751-7) 3.5 3.5-5.0 [facility] DallasGlobulin2019-11-10 16:24:00* Test Item Value Reference Range Interpretation Comments Globulin (test code = 42976-2) 4.1 2.3-3.5 H [facility] DallasAlbumin/Globulin [id number] 16:24:00 * Test Item Value Reference Range Interpretation Comments Albumin/Globulin Ratio (test code = 1759-0) 0.9 0.8-2.0 [facility] DallasAlkaline Sdtgytqjhnr8633-95-73 16:24:00* Test Item Value Reference Range Interpretation Comments Alkaline Phosphatase (test code = 6768-6) 91 40-150 [facility] DallasProthrombin Gkrx7963-15-08 16:17:00* Test Item Value Reference Range Interpretation Comments Prothrombin Time (test code = 5902-2) 12.1 11.9-14.5 [facility] DallasProthromb Time International Ratio 2019-04-27 16:17:00* Test Item Value Reference Range Interpretation Comments Prothromb Time International Ratio (test code = 6301-6) 0.85 Oral Anticoagulant Therapy INR Values:1. Low Intensity Therapy 1.5 - 2.02 . Moderate Intensity Therapy 2.0 - 3.03. High Intensity Therapy(1) 2.5 - 3. 54. High Intensity Therapy(2) 3.0 - 4.05. Panic Value INR > 5.0 [facility] DallasProthrombin Lznb6704-45-58 16:17:00* Test Item Value Reference Range Interpretation Comments Prothrombin Time (test code = 5902-2) 12.1 11.9-14.5 [facility] DallasProthromb Time International Ratio 2019-04-27 16:17:00* Test Item Value Reference Range Interpretation Comments Prothromb Time International Ratio (test code = 6301-6) 0.85 Oral Anticoagulant Therapy INR Values:1. Low Intensity Therapy 1.5 - 2.02 . Moderate Intensity Therapy 2.0 - 3.03. High Intensity Therapy(1) 2.5 - 3. 54. High Intensity Therapy(2) 3.0 - 4.05. Panic Value INR > 5.0 [facility] DallasProthrombin [id number] 16:17:00* Test Item Value Reference Range Interpretation Comments Prothrombin Time (test code = 5902-2) 12.1 11.9-14.5 [facility] DallasProthromb Time International Ratio 2019-04-27 16:17:00* Test Item Value Reference Range Interpretation Comments Prothromb Time International Ratio (test code = 6301-6) 0.85 Oral Anticoagulant Therapy INR Values:1. Low Intensity Therapy 1.5 - 2.02 . Moderate Intensity Therapy 2.0 - 3.03. High Intensity Therapy(1) 2.5 - 3. 54. High Intensity Therapy(2) 3.0 - 4.05. Panic Value INR > 5.0 [facility] DallasMOD SEDATE INITIAL >5 [id number] 12:23:00 [place] [address] Patient Name: VU ALVAREZ MR #: [id number] : 1950 Age/Sex: 68/M Req #: [id number] Adm Physician: Ordered by: MIYA LEHMAN MD Report #: [id number] Location: DX Room/Bed: Procedure: [id number] DX/ MOD SEDATE INITIAL >5 YRS Exam Date: 04/03/19 Exam Time: 921 REPORT STATUS: Signed PROCEDURE: Suprapubic catheter placement Procedural Personnel Attending physician(s): Miya Lehman MD Fellow physician(s): None Resident physician(s): None Advanced practice provider(s): None Pre-procedure diagnosis: Urethral obstruction Post-procedure diagnosis: Same Indication: Urinary obstruction Additional clinical history: None Complications: No immediate complications. IMPRESSION: Image-guided 16 [place] suprapubic catheter placement. Plan: Tube to gravity. Remove indwelling [place] per Dr. Germain. Recovery x 1 hour then discharge when meets criteria. PROCEDURE SUMMARY - Ultrasound and fluoroscopically -guided placement of suprapubic bladder catheter - Additional procedure(s): None PROCEDURE DETAILS: Pre-procedure Consent: Informed consent for the procedure including risks, benefits and alternatives was obtained and time-out was performed prior to the procedure. Preparation: The site was prepared and draped using maximal sterile barrier technique including cutaneous antisepsis. Anesthesia/sedation Level of anesthesia/sedation: Moderate sedation (conscious sedation) 1mg Versed, 50mcg Fentanyl Anesthesia/sedation administered by: Independent trained observer under attending supervision with continuous monitoring of the patient?s level of consciousness and physiologic status Total intra-service sedation time (minutes): 30 Suprapubic catheter placement Local anesthesia was administered. The bladder was filled via an indwelling bladder catheter. Using imaging guidance as specified in the procedure summary, a suprapubic catheter was advanced into the bladder using trocar technique. Suprapubic catheter placed: 16Fr [place] Findings: Sonographic image shows re tention balloon within bladder. Contrast injection confirms intraluminal posit ioning. Internal catheter securement: Balloon External catheter securement: Non-absorbable suture Contrast Contrast agent: Isovue 370 Contrast volu me (mL): 10 Radiation Dose Fluoroscopy time (minutes): 0.0 Reference air kerma (mGy): 1.11 Additional Details Additional description of proce dure: None Equipment details: None Specimens removed: None. A sample was not sent for analysis. Estimated blood loss (mL): Less than 10 Standardized rep ort: [id number] Attestation Signer name: Miya Lehman MD I atte st that I was present for the entire procedure. I reviewed the stored images a nd agree with the report as written. Signed by: Miya Lehman MD on 12:26 PM Dictated By: MIYA LEHMAN MD 15 Transcribed By: VIOLA on 04/14/191515 [employer]AR[employer] LEVELER Y TO: MIYA LEHMAN MD SUPRAPUBIC CATHETER [id number] 12:23:00 [place] [address] Patient Name: VU ALVAREZ MR #: [id number] : 1950 Age/Sex: 68/M Req #: [id number] [facility] Physician: Ordered by: ADOLFO GERMAIN MD Report #: [id number] Location: DX Room/Bed: Procedure: [id number] IR/SUPRAPUBIC CATHETER PLACEMENT Exam Date: 04/02/19 Exam Time: 0900 REPORT STATUS: Si gned PROCEDURE: Suprapubic catheter placement Procedural Personnel Att ending physician(s): Miya Lehman MD Fellow physician(s): None Resident physi kennedi(s): None Advanced practice provider(s): None Pre-procedure diagnosis : Urethral obstruction Post-procedure diagnosis: Same Indication: Urinary ob struction Additional clinical history: None Complications: No immediate c omplications. IMPRESSION: Image-guided 16 [place]an suprapubic catheter p lacement. Plan: Tube to gravity. Remove indwelling [place] per Dr. Carolyn bridges. Recovery x 1 hour then discharge when meets criteria. PROCEDURE SUMMARY - Ultraso und and fluoroscopically -guided placement of suprapubic bladder catheter - Additional procedure(s): None PROCEDURE DETAILS: Pre-procedure Conse nt: Informed consent for the procedure including risks, benefits and alternati ves was obtained and time-out was performed prior to the procedure. Preparatio n: The site was prepared and draped using maximal sterile barrier technique in cluding cutaneous antisepsis. Anesthesia/sedation Level of anesthesia/sed ation: Moderate sedation (conscious sedation) 1mg Versed, 50mcg Fentanyl Ane sthesia/sedation administered by: Independent trained observer under attending supervision with continuous monitoring of the patient?s level of consciousness and physiologic status Total intra-service sedation time (minutes): 30 Suprapubic catheter placement Local anesthesia was administered. The bladder w as filled via an indwelling bladder catheter. Using imaging guidance as specif ied in the procedure summary, a suprapubic catheter was advanced into the blad lety using trocar technique. Suprapubic catheter placed: 16Fr [place] Findings : Sonographic image shows retention balloon within bladder. Contrast injection confirms intraluminal positioning. Internal catheter securement: Balloon Ex ternal catheter securement: Non-absorbable suture Contrast Contrast agent : Isovue 370 Contrast volume (mL): 10 Radiation Dose Fluoroscopy time ( minutes): 0.0 Reference air kerma (mGy): 1.11 Additional Details Add itional description of procedure: None Equipment details: None Specimens rem meagan: None. A sample was not sent for analysis. Estimated blood loss (mL): Les s than 10 Standardized report: [email or web address]_v3 Attestation Signer n juan carlos: Miya Lemhan MD I attest that I was present for the entire procedure. I re viewed the stored images and agree with the report as written. Sign ed by: Miya Lehman MD on 04/02/2019 12:26 PM Dictated By: MIYA LEHMAN MD [id number] Transcribed By: SRIDEVI Singh on 04/14/19 474 COPY TO: ADOLFO GERMAIN MD FLURO GUIDE NEEDLE PLCMNT/NYY0230-71-77 12:23:00 [place] [address] Patient Name: VU ALVAREZ MR #: [id number] : 1950 Age/Sex: 68/M Req #: [id number] Adm Physician: Ordered by: ADOLFO GERMAIN MD Report #: [id number] Location: DX Room/Bed: Procedure: [id number] IR/FLURO GUIDE NEEDLE PLCMNT/INJ Exam Date: 04/02/19 Exam Time: 0900 REPORT STATUS: Si gned PROCEDURE: Suprapubic catheter placement Procedural Personnel Att ending physician(s): Miya Lehman MD Fellow physician(s): None Resident physi kennedi(s): None Advanced practice provider(s): None Pre-procedure diagnosis : Urethral obstruction Post-procedure diagnosis: Same Indication: Urinary ob struction Additional clinical history: None Complications: No immediate c omplications. IMPRESSION: Image-guided 16 Venezuelan suprapubic catheter p lacement. Plan: Tube to gravity. Remove indwelling [place] per Dr. Carolyn bridges. Recovery x 1 hour then discharge when meets criteria. PROCEDURE SUMMARY - Ultraso und and fluoroscopically -guided placement of suprapubic bladder catheter - Additional procedure(s): None PROCEDURE DETAILS: Pre-procedure Conse nt: Informed consent for the procedure including risks, benefits and alternati ves was obtained and time-out was performed prior to the procedure. Preparatio n: The site was prepared and draped using maximal sterile barrier technique in cluding cutaneous antisepsis. Anesthesia/sedation Level of anesthesia/sed ation: Moderate sedation (conscious sedation) 1mg Versed, 50mcg Fentanyl Ane sthesia/sedation administered by: Independent trained observer under attending supervision with continuous monitoring of the patient?s level of consciousness and physiologic status Total intra-service sedation time (minutes): 30 Suprapubic catheter placement Local anesthesia was administered. The bladder w as filled via an indwelling bladder catheter. Using imaging guidance as specif ied in the procedure summary, a suprapubic catheter was advanced into the blad lety using trocar technique. Suprapubic catheter placed: 16Fr [place] Findings : Sonographic image shows retention balloon within bladder. Contrast injection confirms intraluminal positioning. Internal catheter securement: Balloon Ex ternal catheter securement: Non-absorbable suture Contrast Contrast agent : Isovue 370 Contrast volume (mL): 10 Radiation Dose Fluoroscopy time ( minutes): 0.0 Reference air kerma (mGy): 1.11 Additional Details Add itional description of procedure: None Equipment details: None Specimens rem meagan: None. A sample was not sent for analysis. Estimated blood loss (mL): Les s than 10 Standardized report: [email or web address]_v3 Attestation Signer n juan carlos: Miya Lehman MD I attest that I was present for the entire procedure. I re viewed the stored images and agree with the report as written. Sign ed by: Miya Lehman MD on 04/02/2019 12:26 PM Dictated By: MIYA LEHMAN MD Transcribed By: SRIDEVI Sinhg on 04/14/191515 COPY TO: ADOLFO GERMAIN MD GUIDANCE FOR [id number] 12:23:00 [place] [address] Patient Name: VU ALVAREZ MR #: [id number] : 1950 Age/Sex: 68/M Req #: [id number] Adm Physician: Ordered by: ADOLFO GERMAIN MD Report #: [id number] Location: DX Room/Bed: Procedure: [id number] US/US GUIDANCE FOR PROCEDURE Exam Date: 04/02/19 Ex am Time: 953 REPORT STATUS: Signed PROCEDURE: Suprapubic catheter placement Procedural Personnel Attendi hamlet physician(s): Miya Lehman MD Fellow physician(s): None Resident physician (s): None Advanced practice provider(s): None Pre-procedure diagnosis: Ur ethral obstruction Post-procedure diagnosis: Same Indication: Urinary obstru ction Additional clinical history: None Complications: No immediate compl ications. IMPRESSION: Image-guided [address] Plan: Tube to gravity. Remove indwelling [place] per Dr. Germain. Recovery x 1 hour then discharge when meets criteria. PROCEDURE SUMMARY - Ultrasound and fluoroscopically -guided placement of suprapubic bladder catheter - Marlo tional procedure(s): None PROCEDURE DETAILS: Pre-procedure Consent: Informed consent for the procedure including risks, benefits and alternatives was obtained and time-out was performed prior to the procedure. Preparation: T he site was prepared and draped using maximal sterile barrier technique includ ing cutaneous antisepsis. Anesthesia/sedation Level of anesthesia/sedatio n: Moderate sedation (conscious sedation) 1mg Versed, 50mcg Fentanyl Anesthe ankit/sedation administered by: Independent trained observer under attending sup ervision with continuous monitoring of the patient?s level of consciousness an d physiologic status Total intra-service sedation time (minutes): 30 Supr apubic catheter placement Local anesthesia was administered. The bladder was f illed via an indwelling bladder catheter. Using imaging guidance as specified in the procedure summary, a suprapubic catheter was advanced into the bladder using trocar technique. Suprapubic catheter placed: 16Fr [place] Findings: So nographic image shows retention balloon within bladder. Contrast injection con firms intraluminal positioning. Internal catheter securement: Balloon Manager Internship al catheter securement: Non-absorbable suture Contrast Contrast agent: Is ovue 370 Contrast volume (mL): 10 Radiation Dose Fluoroscopy time (lamont ene): 0.0 Reference air kerma (mGy): 1.11 Additional Details Additio nal description of procedure: None Equipment details: None Specimens removed : None. A sample was not sent for analysis. Estimated blood loss (mL): Less th an 10 Standardized report: [email or web address]_v3 Attestation Signer name: Miya Lehman MD I attest that I was present for the entire procedure. I review ed the stored images and agree with the report as written. Signed b y: Miya Lehman MD on 04/02/2019 12:26 PM Dictated By: MIYA LEHMAN MD Elec tronically Signed By: MIYA LEHMAN MD on 04/14/191515 Transcribed By: VIOLA on 04/14/191515 COPY TO: ADOLFO GERMAIN MD Activated Partial Thromboplast [id number] 09:29:00* Test Item Value Reference Range Interpretation Comments Activated Partial Thromboplast Time (test code = 22696-1) 29.8 23.8-35.5 [facility] Time 2019-04-02 09:29:00* Test Item Value Reference Range Interpretation Comments Activated Partial Thromboplast Time (test code = 27122-5) 29.8 23.8-35.5 [facility] Partial Thromboplast Time 2019-04-02 09:29:00* Test Item Value Reference Range Interpretation Comments Activated Partial Thromboplast Time (test code = 30081-4) 29.8 23.8-35.5 [facility] Dallas[facility] Dkwrjwi5230-59-79 09:05:00* Test Item Value Reference Range Interpretation Comments Urine Culture (test code = 630-4) No Result Data Provided [facility] Prglmut7386-85-08 09:05:00* Test Item Value Reference Range Interpretation Comments Urine Culture (test code = 630-4) No Result Data Provided [facility] Dallas[facility] Bxgbble5023-24-97 09:05:00* Test Item Value Reference Range Interpretation Comments Urine Culture (test code = 630-4) No Result Data Provided [facility] DallasCT ABDOMEN/PELVIS [id number] 08:09:00 [facility] [address] [place] [address] Patient Name: VU ALVAREZ MR #: [id number] : 1950 Age/Sex: 68/M Req #: [id number] Adm Physician: Ordered by: DAYNA SHAH MD Report #: [id number] Location: ER Room/Bed: Procedure: [id number]/CT ABDOMEN/PELVIS WO Exam Date: 03/16/19 Exam T kevyn: 0730 REPORT STATUS: Signed EXAM: CT of the abdomen and pelvis WITHOUT contrast HISTORY: Abdominal pa in, altered mental status, recent shunt surgery, history of back surgery/idandra ectomy COMPARISON: CT of the abdomen pelvis January 23, 2019. TECHNIQUE: The abdomen and pelvis were scanned utilizing a multidetector helical scanner. Coronal and sagittal reformats are available. PROTOCOL: Renal colic IV CONTRAST: None, which limits sensitivity and specificity of evaluation of the soft tissues and vascular structures. ORAL CONTRAST: None, which limits sensitivity and specificity of evaluation of the bowel. RADIATION DOSE: Total DLP: mGy*cm Estimated effective dose: (DLP x 0.015 x size factor) Dose modulation, iterative reconstruction, and/or weight based adjustment of the mA/kV was u tilized to reduce the radiation dose to as low as reasonably achievable. COMPLICATIONS: None FINDINGS: LOWER THORAX: Unremarkable. H EPATOBILIARY: No mass. No biliary dilation. Stable numerous small stones within the dependent portion of the gallbladder, without associated inflammat ory changes. SPLEEN: No splenomegaly. PANCREAS: No focal masses or ducta l dilatation. ADRENALS: Stable diffuse mild thickening, without a discret e nodule. KIDNEYS/URETERS: No hydronephrosis, stones, or solid mass lesion identified. PELVIC ORGANS/BLADDER: Stable enlargement of the prostat e. [place] catheter within the decompressed urinary bladder, which does limit evaluation of the bladder. PERITONEUM / RETROPERITONEUM: No free air or flu id. GI TRACT: On limited evaluation of the gastrointestinal tract, no dilation or wall thickening identified. The appendix appears normal. Colonic divert iculosis without evidence of associated acute inflammation. LYMPH NODES: No pathologically enlarged lymph nodes. VESSELS: Scattered atherosclerotic vascu lar calcifications, including the coronary arteries. BONES and JOINTS: Diffusely decreased mineralization of the osseous structures limits bone de tail. Stable post surgical changes with lumbar laminectomy and posterior fusio n, associated beam simon artifact partially limits regional evaluation. St able healed fracture deformity of the left inferior pubic ramus. SOFT TISSU ES: Interval placement of a radiopaque shunt catheter, the distal tip within the left upper quadrant of the abdomen adjacent to the posterior aspect of the spleen, mild fat stranding adjacent to the superficial ventral abdominal wall portion, but no fluid collection. IMPRESSION: 1. Findings compatible with the provided history of recent shunt placement. 2. Stable cholelithiasi s, enlarged prostate, colonic diverticulosis, coronary atherosclerosis, and di ffuse osseous demineralization. Signed by: Hamzah GonzalezOPratima, M.M.M. on 03/16/2019 8:20 AM Dictated By: FERCHO CEVALLOS DO 9 Transcribed By: VIOLA on 03/16/19819 COPY TO: DAYNA SHAH MD SHUNT [id number] 07:10:00 [place] [address] Patient Name: VU ALVAREZ MR #: [id number] : 1950 Age/Sex: 68/M Req #: [id number] Adm Physician: Ordered by: DAYNA SHAH MD Report #: [id number] Location: ER Room/Bed: Procedure: 0929-000 8 DX/SHUNT SERIES Exam Date: Exam Time: REPORT STATUS: Signed SHUNT SERIES: 5 vie ws HISTORY: Multiple stents, headache, vomiting COMPARISON: Shunt series April 24, 2019 DISCUSSION: Soft tissue attenuation partially li mits sensitivity of the exam. Overlying artifacts. No specific interval kamran nge in the radiopaque portions of the right approach ventricular shunt cathete r, the distal again projecting near the midline of the upper thorax. The sac rum is partially obscured by stool and overlying bowel gas. IMPRESSION: 1. No acute radiographic abnormality. 2. No significant interval change of the radiopaque portion of the shunt catheter. Signed by: Dr. Fercho lees DPratimaO., M.M.M. on 03/16/2019 7:15 AM Dictated By: FERCHO CEVALLOS DO Electro nically Signed By: FERCHO CEVALLOS DO on 03/16/19714 Transcribed By: VIOLA on 0 03/16/19714 COPY TO: DAYNA SHAH MD Urine [id number] 03:51:00* Test Item Value Reference Range Interpretation Comments Urine WBC (test code = 5821-4) >50 0-5 H [facility] [id number] 03:51:00* Test Item Value Reference Range Interpretation Comments Urine RBC (test code = 85673-2) 21-50 0-5 H [facility] Ftvoinkk8151-46-87 03:51:00* Test Item Value Reference Range Interpretation Comments Urine Bacteria (test code = 13753-6) MANY NONE H [facility] Epithelial Dtivr3754-12-85 03:51:00 * Test Item Value Reference Range Interpretation Comments Urine Epithelial Cells (test code = 25226-9) MANY NONE [facility] Vahau3082-74-71 03:37:00* Test Item Value Reference Range Interpretation Comments Urine Color (test code = 5778-6) YELLOW YELLOW [facility] Jyuhcoy5388-92-84 03:37:00* Test Item Value Reference Range Interpretation Comments Urine Clarity (test code = 53646-6) SL CLOUDY CLEAR [facility] Vfrbksp7574-56-74 03:37:00 * Test Item Value Reference Range Interpretation Comments Urine Specific [place] (test code = 5811-5) >=1.030 1.010-1.02 5 [facility] [id number] 03:37:00* Test Item Value Reference Range Interpretation Comments Urine pH (test code = 03786-5) 6 5-7 [facility] Leukocyte Qxfwclqp7115-09-00 03:37:00* Test Item Value Reference Range Interpretation Comments Urine Leukocyte Esterase (test code = 15566-6) TRACE NEGATIV E [facility] Ikxrrrt1278-82-46 03:37:00* Test Item Value Reference Range Interpretation Comments Urine Nitrite (test code = 72028-5) POSITIVE NEGATIVE [facility] Wzdydiu9987-44-91 03:37:00* Test Item Value Reference Range Interpretation Comments Urine Protein (test code = 59015-7) 2+ NEGATIVE [facility] Glucose (UA)2019-03-16 03:37:00* Test Item Value Reference Range Interpretation Comments Urine Glucose (UA) (test code = 89041-0) NEGATIVE NEGATIVE [facility] Vusyyfu9161-20-66 03:37:00* Test Item Value Reference Range Interpretation Comments Urine Ketones (test code = 56648-2) NEGATIVE NEGATIVE [facility] Udzzuclgtgoc5121-75-08 03:37:00* Test Item Value Reference Range Interpretation Comments Urine Urobilinogen (test code = 90148-7) 0.2 0.2-1 [facility] Alwupcuvw3179-85-74 03:37:00* Test Item Value Reference Range Interpretation Comments Urine Bilirubin (test code = 1977-8) SMALL NEGATIVE [facility] Wvrex7987-73-37 03:37:00* Test Item Value Reference Range Interpretation Comments Urine Blood (test code = 12301-7) MODERATE NEGATIVE [facility] Evqprrt4773-18-25 12:38:00* Test Item Value Reference Range Interpretation Comments Urine Culture (test code = 630-4) Organism: ESCHERICHIA COLI [facility] Kysacds0105-06-74 12:38:00* Test Item Value Reference Range Interpretation Comments Urine Culture (test code = 630-4) Organism: ESCHERICHIA COLI [facility] DallasFolate2019-09-09 11:49:00* Test Item Value Reference Range Interpretation Comments Folate (test code = 2284-8) 11.1 7.0-15.4 [facility] Dallas[facility]2019-09-09 11:49:00* Test Item Value Reference Range Interpretation Comments Folate (test code = 2284-8) 11.1 7.0-15.4 [facility]2019-09-09 11:49:00* Test Item Value Reference Range Interpretation Comments Folate (test code = 2284-8) 11.1 7.0-15.4 [facility] Dallas[facility]2019-09-09 11:49:00* Test Item Value Reference Range Interpretation Comments Folate (test code = 2284-8) 11.1 7.0-15.4 [facility] DallasF[facility]2019-09-09 11:49:00* Test Item Value Reference Range Interpretation Comments Folate (test code = 2284-8) 11.1 7.0-15.4 [facility] DallasFolate2019-09-09 11:49:00* Test Item Value Reference Range Interpretation Comments Folate (test code = 2284-8) 11.1 7.0-15.4 [facility] DallasBedside Cfpildn6381-17-71 11:22:00* Test Item Value Reference Range Interpretation Comments Bedside Glucose (test code = 22971-9) 192 70-120 H Meter ID: [id number] [facility] 2019-02-24 11:22:00* Test Item Value Reference Range Interpretation Comments Bedside Glucose (test code = 44159-6) 192 70-120 H Meter ID: [id number] [facility] Glucose 2019-02-24 11:22:00* Test Item Value Reference Range Interpretation Comments Bedside Glucose (test code = 12592-7) 192 70-120 H Meter ID: [id number] [facility] 2019-02-24 09:22:00* Test Item Value Reference Range Interpretation Comments Urine Culture (test code = 630-4) Organism: GRAM NEGATIVE BACILLUS [facility] DallasVitamin B12 Afxxv6719-63-46 08:54:00* Test Item Value Reference Range Interpretation Comments Vitamin B12 Level (test code = 45287-4) [address] [place], [place] [address]Vitamin B12 Zvdxl5103-94-29 08:54:00* Test Item Value Reference Range Interpretation Comments Vitamin B12 Level (test code = 65741-8) [address] [place], [place] [address]Vitamin B12 Yhids3714-82-75 08:54:00* Test Item Value Reference Range Interpretation Comments Vitamin B12 Level (test code = 58519-9) [address] [place], [place] [address]Vitamin B12 Mfpic1928-41-89 08:54:00* Test Item Value Reference Range Interpretation Comments Vitamin B12 Level (test code = 67001-8) [address] [place], [place] [address]Vitamin B12 Hbjzg7569-80-14 08:54:00* Test Item Value Reference Range Interpretation Comments Vitamin B12 Level (test code = 20908-3) [address] [place], [place] [address]Vitamin B12 Owdjr9970-15-72 08:54:00* Test Item Value Reference Range Interpretation Comments Vitamin B12 Level (test code = 46107-4) [address] [place], [place] [address]White Blood Jerev2702-79-21 07:11:00* Test Item Value Reference Range Interpretation Comments White Blood Count (test code = 6690-2) 10.34 4.8-10.8 [facility] Dallas[facility] Blood Xtuzr6475-91-29 07:11:00* Test Item Value Reference Range Interpretation Comments Red Blood Count (test code = 789-8) 4.53 4.3-5.7 [facility] DallasHemoglobin2019-09-09 07:11:00* Test Item Value Reference Range Interpretation Comments Hemoglobin (test code = 54076-3) 14.0 14.0-18.0 [facility] DallasHematocrit2019-09-09 07:11:00* Test Item Value Reference Range Interpretation Comments Hematocrit (test code = 4544-3) 40.5 38.2-49.6 [facility] DallasMean Corpuscular Wqftep6034-43-91 07:11:00* Test Item Value Reference Range Interpretation Comments Mean Corpuscular Volume (test code = 787-2) 89.4 81-99 [facility] DallasMean Corpuscular Zubpoxkkxc5863-07-86 07:11:00* Test Item Value Reference Range Interpretation Comments Mean Corpuscular Hemoglobin (test code = 785-6) 30.9 28-32 [facility] DallasMean Corpuscular Hemoglobin Concent 2019-02-24 07:11:00* Test Item Value Reference Range Interpretation Comments Mean Corpuscular Hemoglobin Concent (test code = 786-4) 34.6 31-35 [facility] DallasRed Cell Distribution Hqvnb1116-83-34 07:11:00* Test Item Value Reference Range Interpretation Comments Red Cell Distribution Width (test code = 67227-8) 12.4 11.7 -14.4 [facility] DallasPlatelet Wssyk6064-71-89 07:11:00* Test Item Value Reference Range Interpretation Comments Platelet Count (test code = 777-3) 268 140-360 [facility] DallasNeutrophils (%) (Auto)2019-02-24 07:11:00 * Test Item Value Reference Range Interpretation Comments Neutrophils (%) (Auto) (test code = 98637-1) 59.9 38.7-80.0 [facility] DallasLymphocytes (%) (Auto)2019-02-24 07:11:00 * Test Item Value Reference Range Interpretation Comments Lymphocytes (%) (Auto) (test code = 736-9) 26.3 18.0-39.1 [facility] DallasMonocytes (%) (Auto)2019-02-24 07:11:00* Test Item Value Reference Range Interpretation Comments Monocytes (%) (Auto) (test code = 5905-5) 10.1 4.4-11.3 [facility] DallasEosinophils (%) (Auto)2019-02-24 07:11:00 * Test Item Value Reference Range Interpretation Comments Eosinophils (%) (Auto) (test code = 713-8) 2.4 0.0-6.0 [facility] DallasBasophils (%) (Auto)2019-02-24 07:11:00* Test Item Value Reference Range Interpretation Comments Basophils (%) (Auto) (test code = 706-2) 0.8 0.0-1.0 [facility] DallasIM GRANULOCYTES %2019-02-24 07:11:00* Test Item Value Reference Range Interpretation Comments IM GRANULOCYTES % (test code = IM GRANULOCYTES %) 0.5 0.0- 1.0 [facility] DallasNeutrophils # (Auto)2019-02-24 07:11:00* Test Item Value Reference Range Interpretation Comments Neutrophils # (Auto) (test code = 751-8) 6.2 2.1-6.9 [facility] DallasLymphocytes # (Auto)2019-02-24 07:11:00* Test Item Value Reference Range Interpretation Comments Lymphocytes # (Auto) (test code = 59063-0) 2.7 1.0-3.2 [facility] DallasMonocytes # (Auto)2019-02-24 07:11:00* Test Item Value Reference Range Interpretation Comments Monocytes # (Auto) (test code = 742-7) 1.0 0.2-0.8 H [facility] DallasEosinophils # (Auto)2019-02-24 07:11:00* Test Item Value Reference Range Interpretation Comments Eosinophils # (Auto) (test code = 711-2) 0.3 0.0-0.4 [facility] DallasBasophils # (Auto)2019-02-24 07:11:00* Test Item Value Reference Range Interpretation Comments Basophils # (Auto) (test code = 704-7) 0.1 0.0-0.1 [facility] DallasAbsolute Immature Granulocyte (auto 2019-02-24 07:11:00* Test Item Value Reference Range Interpretation Comments Absolute Immature Granulocyte (auto (ene t code = Absolute Immature Granulocyte (auto) 0.05 0-0.1 [facility] DallasWhite Blood Pmdjn0571-50-17 07:11:00* Test Item Value Reference Range Interpretation Comments White Blood Count (test code = 6690-2) 10.34 4.8-10.8 [facility] DallasRed Blood Yknfx2501-01-73 07:11:00* Test Item Value Reference Range Interpretation Comments Red Blood Count (test code = 789-8) 4.53 4.3-5.7 [facility] DallasHemoglobin2019-09-09 07:11:00* Test Item Value Reference Range Interpretation Comments Hemoglobin (test code = 70373-1) 14.0 14.0-18.0 [facility] DallasHematocrit2019-09-09 07:11:00* Test Item Value Reference Range Interpretation Comments Hematocrit (test code = 4544-3) 40.5 38.2-49.6 [facility] DallasMean Corpuscular Vticbd1565-79-65 07:11:00* Test Item Value Reference Range Interpretation Comments Mean Corpuscular Volume (test code = 787-2) 89.4 81-99 [facility] DallasMean Corpuscular Nttalgqabf5940-02-39 07:11:00* Test Item Value Reference Range Interpretation Comments Mean Corpuscular Hemoglobin (test code = 785-6) 30.9 28-32 [facility] DallasMean Corpuscular Hemoglobin Concent 2019-02-24 07:11:00* Test Item Value Reference Range Interpretation Comments Mean Corpuscular Hemoglobin Concent (test code = 786-4) 34.6 31-35 [facility] DallasRed Cell Distribution Kzcqz7149-03-66 07:11:00* Test Item Value Reference Range Interpretation Comments Red Cell Distribution Width (test code = 03769-7) 12.4 11.7 -14.4 [facility] DallasPlatelet Dqoqx7098-36-81 07:11:00* Test Item Value Reference Range Interpretation Comments Platelet Count (test code = 777-3) 268 140-360 [facility] DallasNeutrophils (%) (Auto)2019-02-24 07:11:00 * Test Item Value Reference Range Interpretation Comments Neutrophils (%) (Auto) (test code = 71458-5) 59.9 38.7-80.0 [facility] DallasLymphocytes (%) (Auto)2019-02-24 07:11:00 * Test Item Value Reference Range Interpretation Comments Lymphocytes (%) (Auto) (test code = 736-9) 26.3 18.0-39.1 [facility] DallasMonocytes (%) (Auto)2019-02-24 07:11:00* Test Item Value Reference Range Interpretation Comments Monocytes (%) (Auto) (test code = 5905-5) 10.1 4.4-11.3 [facility] DallasEosinophils (%) (Auto)2019-02-24 07:11:00 * Test Item Value Reference Range Interpretation Comments Eosinophils (%) (Auto) (test code = 713-8) 2.4 0.0-6.0 [facility] DallasBasophils (%) (Auto)2019-02-24 07:11:00* Test Item Value Reference Range Interpretation Comments Basophils (%) (Auto) (test code = 706-2) 0.8 0.0-1.0 [facility] DallasIM GRANULOCYTES %2019-02-24 07:11:00* Test Item Value Reference Range Interpretation Comments IM GRANULOCYTES % (test code = IM GRANULOCYTES %) 0.5 0.0- 1.0 [facility] DallasNeutrophils # (Auto)2019-02-24 07:11:00* Test Item Value Reference Range Interpretation Comments Neutrophils # (Auto) (test code = 751-8) 6.2 2.1-6.9 [facility] DallasLymphocytes # (Auto)2019-02-24 07:11:00* Test Item Value Reference Range Interpretation Comments Lymphocytes # (Auto) (test code = 54068-8) 2.7 1.0-3.2 [facility] DallasMonocytes # (Auto)2019-02-24 07:11:00* Test Item Value Reference Range Interpretation Comments Monocytes # (Auto) (test code = 742-7) 1.0 0.2-0.8 H [facility] DallasEosinophils # (Auto)2019-02-24 07:11:00* Test Item Value Reference Range Interpretation Comments Eosinophils # (Auto) (test code = 711-2) 0.3 0.0-0.4 [facility] DallasBasophils # (Auto)2019-02-24 07:11:00* Test Item Value Reference Range Interpretation Comments Basophils # (Auto) (test code = 704-7) 0.1 0.0-0.1 [facility] DallasAbsolute Immature Granulocyte (auto 2019-02-24 07:11:00* Test Item Value Reference Range Interpretation Comments Absolute Immature Granulocyte (auto (ene t code = Absolute Immature Granulocyte (auto) 0.05 0-0.1 [facility] DallasWhite Blood Dxsfb9469-06-60 07:11:00* Test Item Value Reference Range Interpretation Comments White Blood Count (test code = 6690-2) 10.34 4.8-10.8 [facility] DallasRed Blood Xtxke3417-30-08 07:11:00* Test Item Value Reference Range Interpretation Comments Red Blood Count (test code = 789-8) 4.53 4.3-5.7 [facility] DallasHemoglobin2019-09-09 07:11:00* Test Item Value Reference Range Interpretation Comments Hemoglobin (test code = 58153-6) 14.0 14.0-18.0 [facility] DallasHematocrit2019-09-09 07:11:00* Test Item Value Reference Range Interpretation Comments Hematocrit (test code = 4544-3) 40.5 38.2-49.6 [facility] DallasMean Corpuscular Iylzvm8725-11-43 07:11:00* Test Item Value Reference Range Interpretation Comments Mean Corpuscular Volume (test code = 787-2) 89.4 81-99 [facility] DallasMean Corpuscular Mzdheknrjj8812-83-03 07:11:00* Test Item Value Reference Range Interpretation Comments Mean Corpuscular Hemoglobin (test code = 785-6) 30.9 28-32 [facility] DallasMean Corpuscular Hemoglobin Concent 2019-02-24 07:11:00* Test Item Value Reference Range Interpretation Comments Mean Corpuscular Hemoglobin Concent (test code = 786-4) 34.6 31-35 [facility] DallasRed Cell Distribution Pkgrz0008-97-79 07:11:00* Test Item Value Reference Range Interpretation Comments Red Cell Distribution Width (test code = 85466-7) 12.4 11.7 -14.4 [facility] DallasPlatelet Voxkz3411-67-39 07:11:00* Test Item Value Reference Range Interpretation Comments Platelet Count (test code = 777-3) 268 140-360 [facility] DallasNeutrophils (%) (Auto)2019-02-24 07:11:00 * Test Item Value Reference Range Interpretation Comments Neutrophils (%) (Auto) (test code = 88307-0) 59.9 38.7-80.0 [facility] DallasLymphocytes (%) (Auto)2019-02-24 07:11:00 * Test Item Value Reference Range Interpretation Comments Lymphocytes (%) (Auto) (test code = 736-9) 26.3 18.0-39.1 [facility] DallasMonocytes (%) (Auto)2019-02-24 07:11:00* Test Item Value Reference Range Interpretation Comments Monocytes (%) (Auto) (test code = 5905-5) 10.1 4.4-11.3 [facility] DallasEosinophils (%) (Auto)2019-02-24 07:11:00 * Test Item Value Reference Range Interpretation Comments Eosinophils (%) (Auto) (test code = 713-8) 2.4 0.0-6.0 [facility] DallasBasophils (%) (Auto)2019-02-24 07:11:00* Test Item Value Reference Range Interpretation Comments Basophils (%) (Auto) (test code = 706-2) 0.8 0.0-1.0 [facility] DallasIM GRANULOCYTES %2019-02-24 07:11:00* Test Item Value Reference Range Interpretation Comments IM GRANULOCYTES % (test code = IM GRANULOCYTES %) 0.5 0.0- 1.0 [facility] DallasNeutrophils # (Auto)2019-02-24 07:11:00* Test Item Value Reference Range Interpretation Comments Neutrophils # (Auto) (test code = 751-8) 6.2 2.1-6.9 [facility] DallasLymphocytes # (Auto)2019-02-24 07:11:00* Test Item Value Reference Range Interpretation Comments Lymphocytes # (Auto) (test code = 36917-9) 2.7 1.0-3.2 [facility] DallasMonocytes # (Auto)2019-02-24 07:11:00* Test Item Value Reference Range Interpretation Comments Monocytes # (Auto) (test code = 742-7) 1.0 0.2-0.8 H [facility] DallasEosinophils # (Auto)2019-02-24 07:11:00* Test Item Value Reference Range Interpretation Comments Eosinophils # (Auto) (test code = 711-2) 0.3 0.0-0.4 [facility] DallasBasophils # (Auto)2019-02-24 07:11:00* Test Item Value Reference Range Interpretation Comments Basophils # (Auto) (test code = 704-7) 0.1 0.0-0.1 [facility] DallasAbsolute Immature Granulocyte (auto 2019-02-24 07:11:00* Test Item Value Reference Range Interpretation Comments Absolute Immature Granulocyte (auto (ene t code = Absolute Immature Granulocyte (auto) 0.05 0-0.1 [facility] Centerodium Bavnv1244-81-17 07:04:00* Test Item Value Reference Range Interpretation Comments Sodium Level (test code = 2951-2) 136 136-145 [facility] DallasPotassium Lubnn4139-40-55 07:04:00* Test Item Value Reference Range Interpretation Comments Potassium Level (test code = 2823-3) 3.5 3.5-5.1 [facility] DallasChloride Wjujb9679-00-77 07:04:00* Test Item Value Reference Range Interpretation Comments Chloride Level (test code = 2075-0) 100 98-107 [facility] DallasCarbon Dioxide Xqbrs7334-10-83 07:04:00* Test Item Value Reference Range Interpretation Comments Carbon Dioxide Level (test code = 2028-9) 25 22-29 [facility] DallasAnion Xqa3765-78-91 07:04:00* Test Item Value Reference Range Interpretation Comments Anion Gap (test code = 85514-1) 14.5 8-16 [facility] DallasBlood Urea Tviufbtb7732-95-04 07:04:00* Test Item Value Reference Range Interpretation Comments Blood Urea Nitrogen (test code = 3094-0) 10 7-26 [facility] DallasCreatinine2019-09-09 07:04:00* Test Item Value Reference Range Interpretation Comments Creatinine (test code = 2160-0) 0.77 0.72-1.25 [facility] DallasBUN/Creatinine Goynb9628-70-58 07:04:00* Test Item Value Reference Range Interpretation Comments BUN/Creatinine Ratio (test code = 3097-3) 13 6-25 [facility] DallasEstimat Glomerular Filtration Rate 2019-02-24 07:04:00* Test Item Value Reference Range Interpretation Comments Estimat Glomerular Filtration Rate (test code = 208966720) > 60 >60 Ranges were taken from the National Kidney Disease Education Program and the [place] [place] [facility] literature.Reference ranges:60 or greater: Liylxr31-39 ( for 3 consecutive months): Chronic kidney disease 15 or less: Kidney failureTexas Health Presbyterian DallasGlucose Prpzu4401-32-56 07:04:00* Test Item Value Reference Range Interpretation Comments Glucose Level (test code = ZPL0965) 121 74-118 H [facility] DallasCalcium Cihpb6383-04-04 07:04:00* Test Item Value Reference Range Interpretation Comments Calcium Level (test code = 87567-6) 9.2 8.4-10.2 [facility] Centerodium Plwev6624-60-98 07:04:00* Test Item Value Reference Range Interpretation Comments Sodium Level (test code = 2951-2) 136 136-145 [facility] DallasPotassium Ggykf1953-37-79 07:04:00* Test Item Value Reference Range Interpretation Comments Potassium Level (test code = 2823-3) 3.5 3.5-5.1 [facility] DallasChloride Gkfew4735-40-95 07:04:00* Test Item Value Reference Range Interpretation Comments Chloride Level (test code = 2075-0) 100 98-107 [facility] DallasCarbon Dioxide Oxllz4565-55-59 07:04:00* Test Item Value Reference Range Interpretation Comments Carbon Dioxide Level (test code = 2028-9) 25 22-29 [facility] DallasAnion Kog3037-14-78 07:04:00* Test Item Value Reference Range Interpretation Comments Anion Gap (test code = 00383-7) 14.5 8-16 [facility] DallasBlood Urea Qagemzje5520-63-97 07:04:00* Test Item Value Reference Range Interpretation Comments Blood Urea Nitrogen (test code = 3094-0) 10 7-26 [facility] DallasCreatinine2019-09-09 07:04:00* Test Item Value Reference Range Interpretation Comments Creatinine (test code = 2160-0) 0.77 0.72-1.25 [facility] DallasBUN/Creatinine Mcqyo7711-96-77 07:04:00* Test Item Value Reference Range Interpretation Comments BUN/Creatinine Ratio (test code = 3097-3) 13 6-25 [facility] DallasEstimat Glomerular Filtration Rate 2019-02-24 07:04:00* Test Item Value Reference Range Interpretation Comments Estimat Glomerular Filtration Rate (test code = 808760818) > 60 >60 Ranges were taken from the National Kidney Disease Education Program and the [facility] Foundation literature.Reference ranges:60 or greater: Ocxevx24-35 ( for 3 consecutive months): Chronic kidney disease 15 or less: Kidney failureTexas Health Presbyterian DallasGlucose Xdhlx3101-47-14 07:04:00* Test Item Value Reference Range Interpretation Comments Glucose Level (test code = QNL2709) 121 74-118 H [facility] DallasCalcium Miocf3723-13-61 07:04:00* Test Item Value Reference Range Interpretation Comments Calcium Level (test code = 86060-0) 9.2 8.4-10.2 [facility] Centerodium Dkhdx1790-25-77 07:04:00* Test Item Value Reference Range Interpretation Comments Sodium Level (test code = 2951-2) 136 136-145 [facility] DallasPotassium Heqtm4570-31-33 07:04:00* Test Item Value Reference Range Interpretation Comments Potassium Level (test code = 2823-3) 3.5 3.5-5.1 [facility] DallasChloride Amyfy1405-11-19 07:04:00* Test Item Value Reference Range Interpretation Comments Chloride Level (test code = 2075-0) 100 98-107 [facility] DallasCarbon Dioxide Cvyzq3776-03-90 07:04:00* Test Item Value Reference Range Interpretation Comments Carbon Dioxide Level (test code = 2028-9) 25 22-29 [facility] DallasAnion Epz2862-54-16 07:04:00* Test Item Value Reference Range Interpretation Comments Anion Gap (test code = 99365-0) 14.5 8-16 [facility] DallasBlood Urea Xujkeshc6712-79-95 07:04:00* Test Item Value Reference Range Interpretation Comments Blood Urea Nitrogen (test code = 3094-0) 10 7-26 [facility] DallasCreatinine2019-09-09 07:04:00* Test Item Value Reference Range Interpretation Comments Creatinine (test code = 2160-0) 0.77 0.72-1.25 [facility] DallasBUN/Creatinine Gsafa6963-89-51 07:04:00* Test Item Value Reference Range Interpretation Comments BUN/Creatinine Ratio (test code = 3097-3) 13 6-25 [facility] DallasEstimat Glomerular Filtration Rate 2019-02-24 07:04:00* Test Item Value Reference Range Interpretation Comments Estimat Glomerular Filtration Rate (test code = 844510254) > 60 >60 Ranges were taken from the National Kidney Disease Education Program and the [facility] Foundation literature.Reference ranges:60 or greater: Aslcpo92-88 ( for 3 consecutive months): Chronic kidney disease 15 or less: Kidney failureTexas Health Presbyterian DallasGlucose Cwvss6131-41-97 07:04:00* Test Item Value Reference Range Interpretation Comments Glucose Level (test code = YXK9639) 121 74-118 H [facility] DallasCalcium Zdfbe3722-65-71 07:04:00* Test Item Value Reference Range Interpretation Comments Calcium Level (test code = 20702-0) 9.2 8.4-10.2 [facility] DallasTotal Kocjimcpk9059-92-28 07:28:00* Test Item Value Reference Range Interpretation Comments Total Bilirubin (test code = 1975-2) 0.6 0.2-1.2 [facility] DallasAspartate Amino Transf (AST/SGOT) 2019-02-23 07:28:00* Test Item Value Reference Range Interpretation Comments Aspartate Amino Transf (AST/SGOT) (test code = Aspartate Amino Transf (AST/SGOT)) 10 5-34 [facility] DallasAlanine Aminotransferase (ALT/SGPT) 2019-02-23 07:28:00* Test Item Value Reference Range Interpretation Comments Alanine Aminotransferase (ALT/SGPT) (test code = 1742-6) 11 0-55 [facility] DallasTotal Yyfimxc2603-32-97 07:28:00* Test Item Value Reference Range Interpretation Comments Total Protein (test code = 2885-2) 7.4 6.5-8.1 [facility] DallasAlbumin2019-09-08 07:28:00* Test Item Value Reference Range Interpretation Comments Albumin (test code = 1751-7) 3.5 3.5-5.0 [facility] DallasGlobulin2019-09-08 07:28:00* Test Item Value Reference Range Interpretation Comments Globulin (test code = 54504-8) 3.9 2.3-3.5 H [facility] DallasAlbumin/Globulin Goemu7140-26-97 07:28:00 * Test Item Value Reference Range Interpretation Comments Albumin/Globulin Ratio (test code = 1759-0) 0.9 0.8-2.0 [facility] DallasAlkaline Mtydtlvveqj0120-84-79 07:28:00* Test Item Value Reference Range Interpretation Comments Alkaline Phosphatase (test code = 6768-6) 88 40-150 [facility] DallasTotal Shgunlvik4206-84-67 07:28:00* Test Item Value Reference Range Interpretation Comments Total Bilirubin (test code = 1975-2) 0.6 0.2-1.2 [facility] DallasAspartate Amino Transf (AST/SGOT) 2019-02-23 07:28:00* Test Item Value Reference Range Interpretation Comments Aspartate Amino Transf (AST/SGOT) (test code = Aspartate Amino Transf (AST/SGOT)) 10 5-34 [facility] DallasAlanine Aminotransferase (ALT/SGPT) 2019-02-23 07:28:00* Test Item Value Reference Range Interpretation Comments Alanine Aminotransferase (ALT/SGPT) (test code = 1742-6) 11 0-55 [facility] DallasTotal Cpqavuo4541-76-41 07:28:00* Test Item Value Reference Range Interpretation Comments Total Protein (test code = 2885-2) 7.4 6.5-8.1 [facility] DallasAlbumin2019-09-08 07:28:00* Test Item Value Reference Range Interpretation Comments Albumin (test code = 1751-7) 3.5 3.5-5.0 [facility] DallasGlobulin2019-09-08 07:28:00* Test Item Value Reference Range Interpretation Comments Globulin (test code = 64467-0) 3.9 2.3-3.5 H [facility] DallasAlbumin/Globulin Xljzc3764-35-68 07:28:00 * Test Item Value Reference Range Interpretation Comments Albumin/Globulin Ratio (test code = 1759-0) 0.9 0.8-2.0 [facility] DallasAlkaline Iasdpjxkpod3636-00-75 07:28:00* Test Item Value Reference Range Interpretation Comments Alkaline Phosphatase (test code = 6768-6) 88 40-150 [facility] DallasTotal Bevsgkmqy5393-69-48 07:28:00* Test Item Value Reference Range Interpretation Comments Total Bilirubin (test code = 1975-2) 0.6 0.2-1.2 [facility] DallasAspartate Amino Transf (AST/SGOT) 2019-02-23 07:28:00* Test Item Value Reference Range Interpretation Comments Aspartate Amino Transf (AST/SGOT) (test code = Aspartate Amino Transf (AST/SGOT)) 10 5-34 [facility] DallasAlanine Aminotransferase (ALT/SGPT) 2019-02-23 07:28:00* Test Item Value Reference Range Interpretation Comments Alanine Aminotransferase (ALT/SGPT) (test code = 1742-6) 11 0-55 [facility] DallasTotal Kiddjhk6778-23-87 07:28:00* Test Item Value Reference Range Interpretation Comments Total Protein (test code = 2885-2) 7.4 6.5-8.1 [facility] DallasAlbumin2019-09-08 07:28:00* Test Item Value Reference Range Interpretation Comments Albumin (test code = 1751-7) 3.5 3.5-5.0 [facility] DallasGlobulin2019-09-08 07:28:00* Test Item Value Reference Range Interpretation Comments Globulin (test code = 91763-5) 3.9 2.3-3.5 H [facility] DallasAlbumin/Globulin Iohxl3370-30-02 07:28:00 * Test Item Value Reference Range Interpretation Comments Albumin/Globulin Ratio (test code = 1759-0) 0.9 0.8-2.0 [facility] DallasAlkaline Bhjrhivrztx9135-33-39 07:28:00* Test Item Value Reference Range Interpretation Comments Alkaline Phosphatase (test code = 6768-6) 88 40-150 [facility] DallasCHEST SINGLE (PORTABLE)2019-02-22 23:13:00 [facility] [address] [address] Patient Name: VU ALVAREZ MR #: [id number] : 1950 Age/Sex: 68/M Req #: [id number] Adm Physician: Ordered by: DAYNA SHAH MD Report #: [id number] Location: ER Room/Bed: Procedure: 0907-005 1 DX/CHEST SINGLE (PORTABLE) Exam Date: Exam Time: REPORT STATUS: Signed EXAMINATI ON: CHEST SINGLE (PORTABLE) COMPARISON: Shunt series obtained at the s juan carlos time, chest x-ray 01/23/2019 INDICATION: Headache, vomiting ERMD ORDE R Y DISCUSSION: Frontal view of the chest obtained at 07/20/2001 hour s. The image is underpenetrated. HEART AND MEDIASTINUM: The cardiomedias tinal silhouette is unremarkable. LINES: Shunt tubing is identified in t he upper chest at the level of the clavicular heads. It cannot be seen distall y due to underpenetration of the image LUNGS: The lungs are well inflate d and clear. No pneumonia or pulmonary edema. PLEURA: Mild eventration of t he right diaphragm. No pleural effusion or pneumothorax. BONES AND SOFT T ISSUES: No focal osseous lesion. The soft tissues are normal. IMPRESSIO N: No acute cardiopulmonary disease. Poor visualization of shunt tubing wit hin the chest. Signed by: Dr. Lisa Pena MD on 02/22/2019 11:14 PM Dictated By: LISA PENA MD 13 Transcribed By: VIOLA on 02/22/192313 COPY TO: DAYNA SHAH MD SHUNT KQAGOT7889-30-50 23:10:00 [address] [address] Patient Name: VU ALVAREZ MR #: [id number] : 1950 Age/Sex: 68/M Req #: [id number] Adm Physician: Ordered by: DAYNA SHAH MD Report #: [id number] Location: ER Room/Bed: Procedure: 0907-005 2 DX/SHUNT SERIES Exam Date: Exam Time: REPORT STATUS: Signed Shunt series CP T: 49427, 55291, 96212 History: [employer] shunt Findings: There is a s richter extending down the right neck to the midline upper chest. Images of the c hest are underpenetrated and the shunt tubing is not visible. Shunt tubing is looped in the right upper quadrant. The lung kennedy are clear. The bowel g as pattern is normal. The paranasal sinuses are well aerated. Fusion hardware of the lumbar spine is intact without surrounding lucency to suggest failure. IMPRESSION: Poor visualization of shunt tubing in the chest. Sig giles by: Dr. Lisa Pena MD on 02/22/2019 11:13 PM Dictated By: HARMEET PENA MD 12 Transcribed By: VIOLA on 02/22/192312 COPY TO: DAYNA SHAH MD CT BRAIN AT5730-67-14 22:44:00 [address] [place] [address] Patient Name: VU ALVAREZ MR #: [id number] : 1950 Age/Sex: 68/M Req #: [id number] Adm Physician: Ordered by: DAYNA SHAH MD Report #: [id number] Location: ER Room/Bed: Procedure: 0907-[address]/CT BRAIN WO Exam Date: Exam Time: REPORT STATUS: Signed History:Headache, vom iting for one day. Shunt placed 3 weeks ago Comparison studies:CT head Technique: Axial images were obtained from the skull base to the vertex . Coronal and sagittal images reconstructed from the axial data. Intravenous contrast: None Dose modulation, iterative reconstruction, and/or weight based adjustment of the mA/kV was utilized to reduce the radiation dose to as low as reasonably achievable. Findings: Scalp/skull: Right parietal ve ntricular shunt at the right lateral ventricle body posterior aspect, subcutan eous reservoir in the right parietal scalp.. Extra-axial spaces: No mass es. No fluid collections. Brain sulci: Mildly prominent. Ventricles: Mod erate dilation of the lateral and third ventricles, stable. Negative density f ocus at the right lateral ventricle frontal horn, likely related to air. Parenchyma: Scattered and confluent hypodensities in the supratentorial white matter are small vessel ischemic changes. No masses, hemorrhage, acute or chr onic cortical vascular insults. Sellar/suprasellar region: No abnormaliti es. Craniocervical junction: Patent foramen magnum. No Chiari one malformatio n. Incidental findings: Atherosclerotic calcifications in the carotid sip hons and left vertebral artery . Impression: No acute abnormalities. Right parietal ventricular shunt and air focus at the right frontal horn, new since previous examination. Small pneumocephalus in the right frontal ho rn. Chronic findings: 1. Moderate ventriculomegaly, stable from previous ex amination. 2. Moderate supratentorial white matter small vessel ischemic bosch ges, stable. Signed by: DR Phong Madrigal M.D. on 02/22/2019 10:57 PM Dictated By: PHONG BUCKLEY MD 56 Transcribed By: VIOLA on 02/22/192256 COPY TO: DAYNA SHAH MD Urine [id number] 22:11:00* Test Item Value Reference Range Interpretation Comments Urine WBC (test code = 5821-4) 21-50 0-5 H [facility] DallasUrine LYQ8997-02-69 22:11:00* Test Item Value Reference Range Interpretation Comments Urine RBC (test code = 63851-6) 21-50 0-5 H [facility] DallasUrine Offjyjfw6992-88-59 22:11:00* Test Item Value Reference Range Interpretation Comments Urine Bacteria (test code = 37010-9) FEW NONE [facility] DallasUrine Epithelial Rvnsa6502-36-30 22:11:00 * Test Item Value Reference Range Interpretation Comments Urine Epithelial Cells (test code = 94428-8) FEW NONE [facility] DallasUrine [id number] 22:11:00* Test Item Value Reference Range Interpretation Comments Urine WBC (test code = 5821-4) 21-50 0-5 H [facility] DallasUrine PEF6892-20-03 22:11:00* Test Item Value Reference Range Interpretation Comments Urine RBC (test code = 71190-7) 21-50 0-5 H [facility] DallasUrine Uvmhwhvv8518-91-04 22:11:00* Test Item Value Reference Range Interpretation Comments Urine Bacteria (test code = 74952-0) FEW NONE [facility] DallasUrine Epithelial Vicdu2218-77-86 22:11:00 * Test Item Value Reference Range Interpretation Comments Urine Epithelial Cells (test code = 32106-8) FEW NONE [facility] DallasUrine Sgivs6497-65-46 22:05:00* Test Item Value Reference Range Interpretation Comments Urine Color (test code = 5778-6) YELLOW YELLOW [facility] Isaziis5424-81-10 22:05:00* Test Item Value Reference Range Interpretation Comments Urine Clarity (test code = 62976-0) SL CLOUDY CLEAR H [facility] Specific Tazmqct2292-52-38 22:05:00 * Test Item Value Reference Range Interpretation Comments Urine Specific [place] (test code = 5811-5) >=1.030 1.010-1.02 5 [facility] [id number] 22:05:00* Test Item Value Reference Range Interpretation Comments Urine pH (test code = 12897-4) 6 5-7 [facility] Leukocyte Syiriqmc7762-46-52 22:05:00* Test Item Value Reference Range Interpretation Comments Urine Leukocyte Esterase (test code = 11760-9) TRACE NEGATIV E H [facility] Cawwgxn1320-94-53 22:05:00* Test Item Value Reference Range Interpretation Comments Urine Nitrite (test code = 59833-3) NEGATIVE NEGATIVE [facility] Cfeglus1311-47-81 22:05:00* Test Item Value Reference Range Interpretation Comments Urine Protein (test code = 02967-4) 3+ NEGATIVE H [facility] Dallas[facility] Glucose (UA)2019-02-22 22:05:00* Test Item Value Reference Range Interpretation Comments Urine Glucose (UA) (test code = 49088-3) NEGATIVE NEGATIVE [facility] Dallas[facility] Lcioncc3490-85-28 22:05:00* Test Item Value Reference Range Interpretation Comments Urine Ketones (test code = 74420-7) 1+ NEGATIVE H [facility] Tihwhwuvzopx1490-16-06 22:05:00* Test Item Value Reference Range Interpretation Comments Urine Urobilinogen (test code = 60833-8) 0.2 0.2-1 [facility] Mpodyhvhl8910-53-51 22:05:00* Test Item Value Reference Range Interpretation Comments Urine Bilirubin (test code = 1977-8) SMALL NEGATIVE [facility] Xsbmk9898-73-74 22:05:00* Test Item Value Reference Range Interpretation Comments Urine Blood (test code = 27010-3) MODERATE NEGATIVE [facility] Yzypy1085-71-14 22:05:00* Test Item Value Reference Range Interpretation Comments Urine Color (test code = 5778-6) YELLOW YELLOW [facility] Hedapnh6349-54-83 22:05:00* Test Item Value Reference Range Interpretation Comments Urine Clarity (test code = 54742-9) SL CLOUDY CLEAR H [facility] Specific Uvagnov3819-42-09 22:05:00 * Test Item Value Reference Range Interpretation Comments Urine Specific [place] (test code = 5811-5) >=1.030 1.010-1.02 5 [facility] [id number] 22:05:00* Test Item Value Reference Range Interpretation Comments Urine pH (test code = 45848-7) 6 5-7 [facility] Leukocyte Uqsrplzr1525-60-89 22:05:00* Test Item Value Reference Range Interpretation Comments Urine Leukocyte Esterase (test code = 76970-4) TRACE NEGATIV E H [facility] Scxkafh7617-54-82 22:05:00* Test Item Value Reference Range Interpretation Comments Urine Nitrite (test code = 89439-8) NEGATIVE NEGATIVE [facility] Quacyqa8074-20-34 22:05:00* Test Item Value Reference Range Interpretation Comments Urine Protein (test code = 89226-6) 3+ NEGATIVE H [facility] Dallas[facility] Glucose (UA)2019-02-22 22:05:00* Test Item Value Reference Range Interpretation Comments Urine Glucose (UA) (test code = 29991-1) NEGATIVE NEGATIVE [facility] Inribho7061-36-08 22:05:00* Test Item Value Reference Range Interpretation Comments Urine Ketones (test code = 43358-9) 1+ NEGATIVE H [facility] DallasU[facility] Offgleokwfsz5872-19-64 22:05:00* Test Item Value Reference Range Interpretation Comments Urine Urobilinogen (test code = 62048-1) 0.2 0.2-1 [facility] Vflutbyyh3156-81-22 22:05:00* Test Item Value Reference Range Interpretation Comments Urine Bilirubin (test code = 1977-8) SMALL NEGATIVE [facility] Dallas[facility] Rfmss5909-33-20 22:05:00* Test Item Value Reference Range Interpretation Comments Urine Blood (test code = 33154-8) MODERATE NEGATIVE [facility] DallasCreatine Kinase [id number] 21:39:00* Test Item Value Reference Range Interpretation Comments Creatine Kinase MB (test code = 81010-2) 0.50 0-5.0 [facility]Tr[facility] P3636-00-01 21:39:00* Test Item Value Reference Range Interpretation Comments Troponin I (test code = UFH4756) 0.008 0-0.300 [facility] DallasCreatine Kinase CH9048-22-03 21:39:00* Test Item Value Reference Range Interpretation Comments Creatine Kinase MB (test code = 44901-7) 0.50 0-5.0 [facility] [place]Tr[place] [id number] 21:39:00* Test Item Value Reference Range Interpretation Comments Troponin I (test code = KTI3512) 0.008 0-0.300 [facility] DallasCreatine Kinase [id number] 21:39:00* Test Item Value Reference Range Interpretation Comments Creatine Kinase MB (test code = 09848-8) 0.50 0-5.0 [facility]Tr[facility]n A9246-31-83 21:39:00* Test Item Value Reference Range Interpretation Comments Troponin I (test code = QVG0935) 0.008 0-0.300 [facility] DallasCreatine Kinase YT1458-52-39 21:39:00* Test Item Value Reference Range Interpretation Comments Creatine Kinase MB (test code = 81993-6) 0.50 0-5.0 [facility]Tr[facility]n H5741-57-98 21:39:00* Test Item Value Reference Range Interpretation Comments Troponin I (test code = GBV4612) 0.008 0-0.300 [facility] DallasCreatine Kinase PM8619-91-02 21:39:00* Test Item Value Reference Range Interpretation Comments Creatine Kinase MB (test code = 37645-3) 0.50 0-5.0 [facility] DallasTrjellico medical centernin B4321-28-29 21:39:00* Test Item Value Reference Range Interpretation Comments Troponin I (test code = CHL8504) 0.008 0-0.300 [facility] DallasCreatine Kinase [id number] 21:39:00* Test Item Value Reference Range Interpretation Comments Creatine Kinase MB (test code = 39664-8) 0.50 0-5.0 [place] 28327019-09-07 21:39:00* Test Item Value Reference Range Interpretation Comments Troponin I (test code = KRM5058) 0.008 0-0.300 [facility] DallasMagnesium Koeoo7957-79-70 21:31:00* Test Item Value Reference Range Interpretation Comments Magnesium Level (test code = 90004-0) 1.3 1.3-2.1 [facility] DallasCreatine Jmtorw2067-50-52 21:31:00* Test Item Value Reference Range Interpretation Comments Creatine Kinase (test code = 2157-6) 37 30-200 [facility] DallasLipase2019-09-07 21:31:00* Test Item Value Reference Range Interpretation Comments Lipase (test code = 3040-3) 14 8-78 [facility] DallasMagnesium Bouet8133-17-99 21:31:00* Test Item Value Reference Range Interpretation Comments Magnesium Level (test code = 30800-4) 1.3 1.3-2.1 [facility] DallasCreatine Hrfvov9655-66-72 21:31:00* Test Item Value Reference Range Interpretation Comments Creatine Kinase (test code = 2157-6) 37 -200 [facility] DallasLipase2019-09-07 21:31:00* Test Item Value Reference Range Interpretation Comments Lipase (test code = 3040-3) [facility] DallasMagnesium Sffmt2125-30-43 21:31:00* Test Item Value Reference Range Interpretation Comments Magnesium Level (test code = 22959-2) 1.3 1.3-2.1 [facility] DallasCreatine Nxdwsx1104-12-90 21:31:00* Test Item Value Reference Range Interpretation Comments Creatine Kinase (test code = 2157-6) 37 [facility] DallasLipase2019-09-07 21:31:00* Test Item Value Reference Range Interpretation Comments Lipase (test code = 3040-3) [facility] Bprwg4284-51-75 21:31:00* Test Item Value Reference Range Interpretation Comments Magnesium Level (test code = 69272-1) 1.3 1.3-2.1 [facility] DallasCreatine Hfqlmt2805-32-22 21:31:00* Test Item Value Reference Range Interpretation Comments Creatine Kinase (test code = 2157-6) 37 - [facility] DallasLipase2019-09-07 21:31:00* Test Item Value Reference Range Interpretation Comments Lipase (test code = 3040-3) [facility] DallasCreatine Esnrsm5502-91-44 21:31:00* Test Item Value Reference Range Interpretation Comments Creatine Kinase (test code = 2157-6) 37 - [facility] DallasLipase2019-09-07 21:31:00* Test Item Value Reference Range Interpretation Comments Lipase (test code = 3040-3) [facility] DallasCreatine Fyuiut7286-59-79 21:31:00* Test Item Value Reference Range Interpretation Comments Creatine Kinase (test code = 2157-6) 37 [facility] DallasLipase2019-09-07 21:31:00* Test Item Value Reference Range Interpretation Comments Lipase (test code = 3040-3) 14 8-78 [facility] DallasActivated Partial Thromboplast Time 2019-02-22 21:20:00* Test Item Value Reference Range Interpretation Comments Activated Partial Thromboplast Time (test code = 50753-4) 29.5 23.8-35.5 [facility] DallasActivated Partial Thromboplast Time 2019-02-22 21:20:00* Test Item Value Reference Range Interpretation Comments Activated Partial Thromboplast Time (test code = 33077-4) 29.5 23.8-35.5 [facility] DallasAct[facility] Partial Thromboplast Time 2019-02-22 21:20:00* Test Item Value Reference Range Interpretation Comments Activated Partial Thromboplast Time (test code = 96651-0) 29.5 23.8-35.5 [facility] DallasBedside Gutszec8700-63-78 12:00:00* Test Item Value Reference Range Interpretation Comments Bedside Glucose (test code = 03536-1) 147 70-120 H Meter ID: [id number] Roll[facility] Brookodium Level 2019-01-30 07:30:00* Test Item Value Reference Range Interpretation Comments Sodium Level (test code = 2951-2) 136 136-145 [facility] DallasPotassium Obcdx5295-86-53 07:30:00* Test Item Value Reference Range Interpretation Comments Potassium Level (test code = 2823-3) 3.5 3.5-5.1 [facility] DallasChloride Ygrpz2562-03-27 07:30:00* Test Item Value Reference Range Interpretation Comments Chloride Level (test code = 2075-0) 102 98-107 [facility] DallasCarbon Dioxide Ncfav5069-83-32 07:30:00* Test Item Value Reference Range Interpretation Comments Carbon Dioxide Level (test code = 2028-9) 25 22-29 [facility] DallasAnion Fjr1559-20-48 07:30:00* Test Item Value Reference Range Interpretation Comments Anion Gap (test code = 71428-8) 12.5 8-16 [facility] DallasBlood Urea Opuevixs1271-61-62 07:30:00* Test Item Value Reference Range Interpretation Comments Blood Urea Nitrogen (test code = 3094-0) 12 01-10 [facility] DallasCreatinine2019-08-15 07:30:00* Test Item Value Reference Range Interpretation Comments Creatinine (test code = 2160-0) 0.71 0.72-1.25 L [facility] DallasBUN/Creatinine Zffpn7814-57-21 07:30:00* Test Item Value Reference Range Interpretation Comments BUN/Creatinine Ratio (test code = 3097-3) 17 12-10 [facility] DallasEstimat Glomerular Filtration Rate 2019-01-30 07:30:00* Test Item Value Reference Range Interpretation Comments Estimat Glomerular Filtration Rate (test code = 007142274) > 60 >60 Ranges were taken from the National Kidney Disease Education Program and the [facility] literature.Reference ranges:60 or greater: Wxbskf14-85 ( for 3 consecutive months): Chronic kidney disease 15 or less: Kidney failureTexas Health Presbyterian DallasGlucose Mhlbh8667-31-61 07:30:00* Test Item Value Reference Range Interpretation Comments Glucose Level (test code = AMA3659) 132 74-118 H [facility] DallasCalcium Afxyv6710-13-52 07:30:00* Test Item Value Reference Range Interpretation Comments Calcium Level (test code = 48906-5) 8.6 8.4-10.2 [facility] DallasWhite Blood Saxvr1652-54-15 07:16:00* Test Item Value Reference Range Interpretation Comments White Blood Count (test code = 6690-2) 10.60 4.8-10.8 [facility] DallasRed Blood Ndjjf8286-25-62 07:16:00* Test Item Value Reference Range Interpretation Comments Red Blood Count (test code = 789-8) 4.41 4.3-5.7 [facility] DallasHemoglobin2019-08-15 07:16:00* Test Item Value Reference Range Interpretation Comments Hemoglobin (test code = 23862-4) 13.4 14.0-18.0 L [facility] DallasHematocrit2019-08-15 07:16:00* Test Item Value Reference Range Interpretation Comments Hematocrit (test code = 4544-3) 39.7 38.2-49.6 [facility] DallasMean Corpuscular Nqecei9986-58-07 07:16:00* Test Item Value Reference Range Interpretation Comments Mean Corpuscular Volume (test code = 787-2) 90.0 81-99 [facility] DallasMean Corpuscular Buzvydmfpq8889-59-19 07:16:00* Test Item Value Reference Range Interpretation Comments Mean Corpuscular Hemoglobin (test code = 785-6) 30.4 28-32 [facility] DallasMean Corpuscular Hemoglobin Concent 2019-01-30 07:16:00* Test Item Value Reference Range Interpretation Comments Mean Corpuscular Hemoglobin Concent (test code = 786-4) 33.8 31-35 [facility] DallasRed Cell Distribution Jzazw6875-77-64 07:16:00* Test Item Value Reference Range Interpretation Comments Red Cell Distribution Width (test code = 23901-4) 13.4 11.7 -14.4 [facility] DallasPlatelet Qqmmv9548-79-26 07:16:00* Test Item Value Reference Range Interpretation Comments Platelet Count (test code = 777-3) 287 140-360 [facility] DallasNeutrophils (%) (Auto)2019-01-30 07:16:00 * Test Item Value Reference Range Interpretation Comments Neutrophils (%) (Auto) (test code = 33877-1) 63.3 38.7-80.0 [facility] DallasLymphocytes (%) (Auto)2019-01-30 07:16:00 * Test Item Value Reference Range Interpretation Comments Lymphocytes (%) (Auto) (test code = 736-9) 21.1 18.0-39.1 [facility] DallasMonocytes (%) (Auto)2019-01-30 07:16:00* Test Item Value Reference Range Interpretation Comments Monocytes (%) (Auto) (test code = 5905-5) 10.4 4.4-11.3 [facility] DallasEosinophils (%) (Auto)2019-01-30 07:16:00 * Test Item Value Reference Range Interpretation Comments Eosinophils (%) (Auto) (test code = 713-8) 3.2 0.0-6.0 [facility] DallasBasophils (%) (Auto)2019-01-30 07:16:00* Test Item Value Reference Range Interpretation Comments Basophils (%) (Auto) (test code = 706-2) 1.0 0.0-1.0 [facility] DallasIM GRANULOCYTES %2019-01-30 07:16:00* Test Item Value Reference Range Interpretation Comments IM GRANULOCYTES % (test code = IM GRANULOCYTES %) 1.0 0.0- 1.0 [facility] DallasNeutrophils # (Auto)2019-01-30 07:16:00* Test Item Value Reference Range Interpretation Comments Neutrophils # (Auto) (test code = 751-8) 6.7 2.1-6.9 [facility] DallasLymphocytes # (Auto)2019-01-30 07:16:00* Test Item Value Reference Range Interpretation Comments Lymphocytes # (Auto) (test code = 28789-8) 2.2 1.0-3.2 [facility] DallasMonocytes # (Auto)2019-01-30 07:16:00* Test Item Value Reference Range Interpretation Comments Monocytes # (Auto) (test code = 742-7) 1.1 0.2-0.8 H [facility] DallasEosinophils # (Auto)2019-01-30 07:16:00* Test Item Value Reference Range Interpretation Comments Eosinophils # (Auto) (test code = 711-2) 0.3 0.0-0.4 [facility] DallasBasophils # (Auto)2019-01-30 07:16:00* Test Item Value Reference Range Interpretation Comments Basophils # (Auto) (test code = 704-7) 0.1 0.0-0.1 [facility] DallasAbsolute Immature Granulocyte (auto 2019-01-30 07:16:00* Test Item Value Reference Range Interpretation Comments Absolute Immature Granulocyte (auto (ene t code = Absolute Immature Granulocyte (auto) 0.11 0-0.1 H [facility] DallasProthrombin Vhdp7364-26-82 21:30:00* Test Item Value Reference Range Interpretation Comments Prothrombin Time (test code = 5902-2) 13.1 11.9-14.5 [facility] DallasProthromb Time International Ratio 2019-01-29 21:30:00* Test Item Value Reference Range Interpretation Comments Prothromb Time International Ratio (test code = 6301-6) 0.94 Oral Anticoagulant Therapy INR Values:1. Low Intensity Therapy 1.5 - 2.02 . Moderate Intensity Therapy 2.0 - 3.03. High Intensity Therapy(1) 2.5 - 3. 54. High Intensity Therapy(2) 3.0 - 4.05. Panic Value INR > 5.0 [facility] DallasActivated Partial Thromboplast Time 2019-01-29 21:30:00* Test Item Value Reference Range Interpretation Comments Activated Partial Thromboplast Time (test code = 32633-9) 32.0 23.8-35.5 [facility] DallasProthrombin Dkbr9999-92-71 21:30:00* Test Item Value Reference Range Interpretation Comments Prothrombin Time (test code = 5902-2) 13.1 11.9-14.5 [facility] DallasProthromb Time International Ratio 2019-01-29 21:30:00* Test Item Value Reference Range Interpretation Comments Prothromb Time International Ratio (test code = 6301-6) 0.94 Oral Anticoagulant Therapy INR Values:1. Low Intensity Therapy 1.5 - 2.02 . Moderate Intensity Therapy 2.0 - 3.03. High Intensity Therapy(1) 2.5 - 3. 54. High Intensity Therapy(2) 3.0 - 4.05. Panic Value INR > 5.0 [facility] DallasProthrombin Ozri3364-19-43 21:30:00* Test Item Value Reference Range Interpretation Comments Prothrombin Time (test code = 5902-2) 13.1 11.9-14.5 [facility] DallasProthromb Time International Ratio 2019-01-29 21:30:00* Test Item Value Reference Range Interpretation Comments Prothromb Time International Ratio (test code = 6301-6) 0.94 Oral Anticoagulant Therapy INR Values:1. Low Intensity Therapy 1.5 - 2.02 . Moderate Intensity Therapy 2.0 - 3.03. High Intensity Therapy(1) 2.5 - 3. 54. High Intensity Therapy(2) 3.0 - 4.05. Panic Value INR > 5.0 [facility] DallasProthrombin Vfme7638-07-46 21:30:00* Test Item Value Reference Range Interpretation Comments Prothrombin Time (test code = 5902-2) 13.1 11.9-14.5 [facility] DallasProthromb Time International Ratio 2019-01-29 21:30:00* Test Item Value Reference Range Interpretation Comments Prothromb Time International Ratio (test code = 6301-6) 0.94 Oral Anticoagulant Therapy INR Values:1. Low Intensity Therapy 1.5 - 2.02 . Moderate Intensity Therapy 2.0 - 3.03. High Intensity Therapy(1) 2.5 - 3. 54. High Intensity Therapy(2) 3.0 - 4.05. Panic Value INR > 5.0 [facility] DallasClostridium Difficile Toxin A & B 2019-01-29 15:11:00* Test Item Value Reference Range Interpretation Comments Clostridium Difficile Toxin A & B (test code = 168562119) NEGATIVE NEGATIVE Testing on stool aspirate specimens is outside mold yarn supervisor claims since specime n type not validated on this assay.[facility] Clostridium Difficile Toxin A & [id number] 15:11:00* Test Item Value Reference Range Interpretation Comments Clostridium Difficile Toxin A & B (test code = 637572999) NEGATIVE NEGATIVE Testing on stool aspirate specimens is outside mold yarn supervisor claims since specime n type not validated on this assay.[facility] Clostridium Difficile Toxin A & [id number] 15:11:00* Test Item Value Reference Range Interpretation Comments Clostridium Difficile Toxin A & B (test code = 128914752) NEGATIVE NEGATIVE Testing on stool aspirate specimens is outside mold yarn supervisor claims since specime n type not validated on this assay.[facility] Clostridium Difficile Toxin A & [id number] 15:11:00* Test Item Value Reference Range Interpretation Comments Clostridium Difficile Toxin A & B (test code = 585504084) NEGATIVE NEGATIVE Testing on stool aspirate specimens is outside mold yarn supervisor claims since specime n type not validated on this assay.[facility] Clostridium Difficile Toxin A & [id number] 15:11:00* Test Item Value Reference Range Interpretation Comments Clostridium Difficile Toxin A & B (test code = 265879577) NEGATIVE NEGATIVE Testing on stool aspirate specimens is outside mold yarn supervisor claims since specime n type not validated on this assay.[facility] Clostridium Difficile Toxin A & [id number] 15:11:00* Test Item Value Reference Range Interpretation Comments Clostridium Difficile Toxin A & B (test code = 978442870) NEGATIVE NEGATIVE Testing on stool aspirate specimens is outside mold yarn supervisor claims since specime n type not validated on this assay.[facility] Clostridium Difficile Toxin A & [id number] 15:11:00* Test Item Value Reference Range Interpretation Comments Clostridium Difficile Toxin A & B (test code = 489812858) NEGATIVE NEGATIVE Testing on stool aspirate specimens is outside mold yarn supervisor claims since specime n type not validated on this assay.[facility] Fqrdkrv9388-26-58 01:45:00* Test Item Value Reference Range Interpretation Comments Blood Culture (test code = 23240410) NO GROWTH AFTER 5 DAYS, FINAL REPORT [facility] Ndavwig6465-66-09 01:45:00* Test Item Value Reference Range Interpretation Comments Blood Culture (test code = 21664134) NO GROWTH AFTER 5 DAYS, FINAL REPORT [facility] Spvplic2315-44-24 01:45:00* Test Item Value Reference Range Interpretation Comments Blood Culture (test code = 73523838) NO GROWTH AFTER 5 DAYS, FINAL REPORT [facility] Ptohljz7273-46-18 01:45:00* Test Item Value Reference Range Interpretation Comments Blood Culture (test code = 33516370) NO GROWTH AFTER 5 DAYS, FINAL REPORT [facility] DallasCSF Vgtogpbfui2776-08-08 16:45:00* Test Item Value Reference Range Interpretation Comments CSF Appearance (test code = 35884-1) BLOODY CLEAR [facility] Hnumn0907-96-50 16:45:00* Test Item Value Reference Range Interpretation Comments CSF Color (test code = 68945-7) RED COLORLESS [facility] Cell Count Tube #2019-01-27 16:45:00 * Test Item Value Reference Range Interpretation Comments CSF Cell Count Tube # (test code = 08331-0) 3 [facility] [id number] 16:45:00* Test Item Value Reference Range Interpretation Comments CSF WBC (test code = 806-0) 99 0-5 H [facility] [id number] 16:45:00* Test Item Value Reference Range Interpretation Comments CSF RBC (test code = 67446-5) 18896 0-10 H [facility] Keqfpskawr4065-72-76 16:45:00* Test Item Value Reference Range Interpretation Comments CSF Appearance (test code = 89795-5) BLOODY CLEAR [facility] Jnvhv4270-87-98 16:45:00* Test Item Value Reference Range Interpretation Comments CSF Color (test code = 90373-3) RED COLORLESS [facility] Cell Count Tube #2019-01-27 16:45:00 * Test Item Value Reference Range Interpretation Comments CSF Cell Count Tube # (test code = 38018-5) 3 [facility] [id number] 16:45:00* Test Item Value Reference Range Interpretation Comments CSF WBC (test code = 806-0) 99 0-5 H [facility] ROS4178-64-70 16:45:00* Test Item Value Reference Range Interpretation Comments CSF RBC (test code = 69680-7) 36726 0-10 H [facility] Ftgipirvue9470-10-75 16:45:00* Test Item Value Reference Range Interpretation Comments CSF Appearance (test code = 86073-3) BLOODY CLEAR [facility] Irero0856-10-69 16:45:00* Test Item Value Reference Range Interpretation Comments CSF Color (test code = 72868-8) RED COLORLESS [facility] Cell Count Tube #2019-01-27 16:45:00 * Test Item Value Reference Range Interpretation Comments CSF Cell Count Tube # (test code = 20921-5) 3 [facility] [id number] 16:45:00* Test Item Value Reference Range Interpretation Comments CSF WBC (test code = 806-0) 99 0-5 H [facility] [id number] 16:45:00* Test Item Value Reference Range Interpretation Comments CSF RBC (test code = 40477-6) 04186 0-10 H [facility] Abifbsejsw0753-81-32 16:45:00* Test Item Value Reference Range Interpretation Comments CSF Appearance (test code = 20123-1) BLOODY CLEAR [facility] Dhped8786-10-78 16:45:00* Test Item Value Reference Range Interpretation Comments CSF Color (test code = 35578-2) RED COLORLESS [facility] Cell Count Tube #2019-01-27 16:45:00 * Test Item Value Reference Range Interpretation Comments CSF Cell Count Tube # (test code = 64260-1) 3 [facility] ANJ5435-66-00 16:45:00* Test Item Value Reference Range Interpretation Comments CSF WBC (test code = 806-0) 99 0-5 H [facility] [id number] 16:45:00* Test Item Value Reference Range Interpretation Comments CSF RBC (test code = 82226-5) 85038 0-10 H [facility] Hiyootmgtv1791-42-50 16:45:00* Test Item Value Reference Range Interpretation Comments CSF Appearance (test code = 55531-8) BLOODY CLEAR [facility] Yewqz0182-41-56 16:45:00* Test Item Value Reference Range Interpretation Comments CSF Color (test code = 24781-2) RED COLORLESS [facility] Cell Count Tube #2019-01-27 16:45:00 * Test Item Value Reference Range Interpretation Comments CSF Cell Count Tube # (test code = 77897-3) 3 [facility] [id number] 16:45:00* Test Item Value Reference Range Interpretation Comments CSF WBC (test code = 806-0) 99 0-5 H [facility] [id number] 16:45:00* Test Item Value Reference Range Interpretation Comments CSF RBC (test code = 84390-0) 20227 0-10 H [facility] Nynctfsuxw2974-41-11 16:45:00* Test Item Value Reference Range Interpretation Comments CSF Appearance (test code = 45328-5) BLOODY CLEAR [facility] Jqtbj1037-56-06 16:45:00* Test Item Value Reference Range Interpretation Comments CSF Color (test code = 86897-2) RED COLORLESS [facility] Cell Count Tube #2019-01-27 16:45:00 * Test Item Value Reference Range Interpretation Comments CSF Cell Count Tube # (test code = 76210-1) 3 [facility] [id number] 16:45:00* Test Item Value Reference Range Interpretation Comments CSF WBC (test code = 806-0) 99 0-5 H [facility] [id number] 16:45:00* Test Item Value Reference Range Interpretation Comments CSF RBC (test code = 92305-9) 66850 0-10 H [facility] Pdykfyxupm0645-79-58 16:45:00* Test Item Value Reference Range Interpretation Comments CSF Appearance (test code = 50819-3) BLOODY CLEAR [facility] Ciiyr0787-30-61 16:45:00* Test Item Value Reference Range Interpretation Comments CSF Color (test code = 51442-9) RED COLORLESS [facility] Cell Count Tube #2019-01-27 16:45:00 * Test Item Value Reference Range Interpretation Comments CSF Cell Count Tube # (test code = 66605-0) 3 [facility] [id number] 16:45:00* Test Item Value Reference Range Interpretation Comments CSF WBC (test code = 806-0) 99 0-5 H [facility] [id number] 16:45:00* Test Item Value Reference Range Interpretation Comments CSF RBC (test code = 92311-6) 24910 0-10 H [facility] Fykrfgh7487-77-62 16:43:00* Test Item Value Reference Range Interpretation Comments CSF Glucose (test code = 2342-4) 87 40-70 H [facility] Total Iopfpyu4689-54-39 16:43:00* Test Item Value Reference Range Interpretation Comments CSF Total Protein (test code = 2880-3) 76.5 15-40 H [facility] Cytskbp0166-00-06 16:43:00* Test Item Value Reference Range Interpretation Comments CSF Glucose (test code = 2342-4) 87 40-70 H [facility] Total Pniymuo6834-02-36 16:43:00* Test Item Value Reference Range Interpretation Comments CSF Total Protein (test code = 2880-3) 76.5 15-40 H [facility] Ydamqrj2711-84-74 16:43:00* Test Item Value Reference Range Interpretation Comments CSF Glucose (test code = 2342-4) 87 40-70 H [facility] Total Lodpnjs3766-54-35 16:43:00* Test Item Value Reference Range Interpretation Comments CSF Total Protein (test code = 2880-3) 76.5 15-40 H [facility] Aikjeqy8387-20-22 16:43:00* Test Item Value Reference Range Interpretation Comments CSF Glucose (test code = 2342-4) 87 40-70 H [facility] Total Worvvmd8679-08-50 16:43:00* Test Item Value Reference Range Interpretation Comments CSF Total Protein (test code = 2880-3) 76.5 15-40 [facility] Dkczktn1101-04-02 16:43:00* Test Item Value Reference Range Interpretation Comments CSF Glucose (test code = 2342-4) 87 40-70 [facility] Xiyxvul6548-33-02 16:43:00* Test Item Value Reference Range Interpretation Comments CSF Total Protein (test code = 2880-3) 76.5 15-40 [facility] Kutjvow4301-90-18 16:43:00* Test Item Value Reference Range Interpretation Comments CSF Glucose (test code = 2342-4) 87 40-70 [facility] Total Wcfafpv6225-92-94 16:43:00* Test Item Value Reference Range Interpretation Comments CSF Total Protein (test code = 2880-3) 76.5 15-40 [facility] Whexkox4367-48-30 16:43:00* Test Item Value Reference Range Interpretation Comments CSF Glucose (test code = 2342-4) 87 40-70 [facility] Dsymqsr2900-99-45 16:43:00* Test Item Value Reference Range Interpretation Comments CSF Total Protein (test code = 2880-3) 76.5 15-40 [facility] LASWRCI5467-14-72 16:27:00 [facility] [address] [address] Patient Name: VU ALVAREZ MR #: [id number] : 1950 Age/Sex: 68/M Req #: [id number] Adm Physician: INEZ OLVERA MD Ordered by: BRI SCHROEDER MD Report #: [id number] Location: [facility] Room/Bed: [facility] Procedure: 0812-000 1 DX/IR CONSULT Exam Date: Exam Time: REPORT STATUS: Signed PROCEDURE: Lumbar punc ture Procedural Personnel Attending physician(s): Miya Lehman MD Fellow physician(s): None Resident physician(s): None Advanced practice provider(s ): None Pre-procedure diagnosis: Normal pressure hydrocephalus. Post-proc edure diagnosis: Same Indication: Reported normal pressure hydrocephalus. Ad ditional clinical history: None Complications: No immediate complications. IMPRESSION: Fluoroscopically guided lumbar puncture. Opening pressure of 8 mmHg. Fluid removed and sent for further analysis. PROCEDU RE SUMMARY: - Fluoroscopically guided lumbar puncture at L4-5. - Opening pre ssure measured at 8 mmHg PROCEDURE DETAILS: Pre-procedure Consent: I nformed consent for the procedure including risks, benefits and alternatives w as obtained and time-out was performed prior to the procedure. Preparation: Th e site was prepared and draped using maximal sterile barrier technique includi ng cutaneous antisepsis. Anesthesia/sedation Level of anesthesia/sedation : Local 1% lidocaine Lumbar Puncture Nuclear Reactor Engineer images were obtained. Under im age guidance, a 20-gauge spinal needle was initially advanced toward the theca l space at the L3-4 level. Access at this level was not possible due to extens kristin heterotopic ossification and spinal fusion hardware. Attempt was then made at the L4-5 level. A needle was advanced to the thecal space. Opening pressure was measured and CSF was obtained for further analysis. A total of 30 cc CSF was removed. Target level: L4-5 Radiation Dose Fluoroscopy time (lamont ene): 2.4 Reference air kerma (mGy): 30.5 Additional Details Additio nal description of procedure: None Equipment details: None Specimens removed : 30 cc blood-tinged CSF Estimated blood loss (mL): Less than 10 Standardize d report: SIR_VertebroplastyReg_v3 Attestation Signer name: Jessica Renteria I attest that I was present for the entire procedure. I reviewed the stored images and agree with the report as written. Signed by: Miya Lehman MD on 01/27/2019 4:30 PM Dictated By: MIYA LEHMAN MD 29 Transcribed By: VIOLA on 01/27/19 1630 C OPY TO: BRI SCHROEDER MD FLUORO ASSIST NEURO/PAIN [id number] 16:27:00 [place] [address] Patient Name: VU ALVAREZ MR #: [id number] : 1950 Age/Sex: 68/M Req #: [id number] Adm Physician: INEZ OLVERA MD Ordered by: BRI SCHROEDER MD Report #: [id number] Location: MED/SURG3 Room/Bed: [facility] Procedure: 6 IR/FLUORO ASSIST NEURO/PAIN CASES Exam Date: 01/27/19 Exam Time: 1400 REPORT STATUS: Signed PROCEDURE: Lumbar puncture Procedural Personnel Attending physi kennedi(s): Miya Lehman MD Fellow physician(s): None Resident physician(s): Non e Advanced practice provider(s): None Pre-procedure diagnosis: Normal pre ssure hydrocephalus. Post-procedure diagnosis: Same Indication: Reported nor mal pressure hydrocephalus. Additional clinical history: None Complicatio ns: No immediate complications. IMPRESSION: Fluoroscopically guided lumba r puncture. Opening pressure of 8 mmHg. Fluid removed and sent for further carlito lysis. PROCEDURE SUMMARY: - Fluoroscopically guided lumbar p uncture at L4-5. - Opening pressure measured at 8 mmHg PROCEDURE DETAILS: Pre-procedure Consent: Informed consent for the procedure including risk s, benefits and alternatives was obtained and time-out was performed prior to the procedure. Preparation: The site was prepared and draped using maximal nikolas rile barrier technique including cutaneous antisepsis. Anesthesia/sedatio n Level of anesthesia/sedation: Local 1% lidocaine Lumbar Puncture Scou t images were obtained. Under image guidance, a 20-gauge spinal needle was ini tially advanced toward the thecal space at the L3-4 level. Access at this leve l was not possible due to extensive heterotopic ossification and spinal fusion hardware. Attempt was then made at the L4-5 level. A needle was advanced to t he thecal space. Opening pressure was measured and CSF was obtained for furthe r analysis. A total of 30 cc CSF was removed. Target level: L4-5 Radiati on Dose Fluoroscopy time (minutes): 2.4 Reference air kerma (mGy): 30.5 Additional Details Additional description of procedure: None Equipment d etails: None Specimens removed: 30 cc blood-tinged CSF Estimated blood loss (mL): Less than 10 Standardized report: SIR_VertebroplastyReg_v3 Attestat ion Signer name: Miya Lehman MD I attest that I was present for the entire p rocedure. I reviewed the stored images and agree with the report as written. Signed by: Miya Lehman MD on 01/27/2019 4:30 PM Dictated By: MIYA LEHMAN MD 9250 Transcribed By: VIOLA on 01/27/19 1940 COPY TO: BRI SCHROEDER MD LUMBAR SPINE [id number] 16:27:00 [place] [address] Patient Name: VU ALVAREZ MR #: [id number] : 1950 Age/Sex: 68/M Req #: [id number] [facility] Physician: INEZ OLVERA MD Ordered by: BRI SCHROEDER MD Report #: [id number] Location: [place] [address] Room/Bed: [facility] Procedure: 7 IR/LUMBAR SPINE PUNCTURE Exam Date: 01/27/19 Exam Time: 1400 REPORT STATUS: Signed PROCEDURE: Lumbar puncture Procedural Personnel Attending physician(s): Miya Lehman MD Fellow physician(s): None Resident physician(s): None [facility] practice provider(s): None Pre-procedure diagnosis: Normal pressure hyd rocephalus. Post-procedure diagnosis: Same Indication: Reported normal press ure hydrocephalus. Additional clinical history: None Complications: No im mediate complications. IMPRESSION: Fluoroscopically guided lumbar punctur e. Opening pressure of 8 mmHg. Fluid removed and sent for further analysis. PROCEDURE SUMMARY: - Fluoroscopically guided lumbar puncture at L4-5. - Opening pressure measured at 8 mmHg PROCEDURE DETAILS: Pre- procedure Consent: Informed consent for the procedure including risks, benefi ts and alternatives was obtained and time-out was performed prior to the proce dure. Preparation: The site was prepared and draped using maximal sterile rodriguez ier technique including cutaneous antisepsis. Anesthesia/sedation Level of anesthesia/sedation: Local 1% lidocaine Lumbar Puncture Nuclear Reactor Engineer images were obtained. Under image guidance, a 20-gauge spinal needle was initially ad vanced toward the thecal space at the L3-4 level. Access at this level was not possible due to extensive heterotopic ossification and spinal fusion hardware. Attempt was then made at the L4-5 level. A needle was advanced to the thecal space. Opening pressure was measured and CSF was obtained for further analysi s. A total of 30 cc CSF was removed. Target level: L4-5 Radiation Dose Fluoroscopy time (minutes): 2.4 Reference air kerma (mGy): 30.5 Addit ional Details Additional description of procedure: None Equipment details: N one Specimens removed: 30 cc blood-tinged CSF Estimated blood loss (mL): Les s than 10 Standardized report: SIR_VertebroplastyReg_v3 Attestation Sig ner name: Miya Lehman MD I attest that I was present for the entire procedure. I reviewed the stored images and agree with the report as written. Signed by: Miya Lehman MD on 01/27/2019 4:30 PM Dictated By: MIYA LEHMAN MD Valeria ctronically Signed By: MIYA LEHMAN MD on 01/27/19 1630 Transcribed By: VIOLA singh 01/27/19 1630 COPY TO: BRI SCHROEDER MD MRI BRAIN WO 2019-01-27 10:40:00 [place] [address] Patient Name: VU ALVAREZ MR #: [id number] : 1950 Age/Sex: 68/M Req #: [id number] Adm Physician: INEZ OLVERA MD Ordered by: BRI SCHROEDER MD Report #: [id number] Location: MED/SURG3 Room/Bed: [facility] Procedure: 0812-000 1 MRI/MRI BRAIN WO Exam Date: Exam Time: REPORT STATUS: Signed EXAMINATION: MRI of the brain without contrast. HISTORY: Alteration of consciousness, possible normal pressure hydrocephalus COMPARISON: Head CT 01/22/2019 TECHNIQUE: Sagit diaz T2; axial DWI, T2, FLAIR, T1-IR, T2 gradient echo; coronal FLAIR. IMAGE QUALITY: Adequate. FINDINGS: Parenchyma: 1. Moderate to severe confluent periventricular, walker radiata and centrum semiovale white matter T2 and FLAIR hyperintense foci, most likely nonspecific chronic microvascular ischemic changes. Similar findings in the central hugo. 2. No mass, hemorrh age, acute or chronic infarcts. Skull: Unremarkable. Ves sels: Expected flow voids present in the major arteries and dural sinuses. Extra-axial spaces: No abnormal signal intensity or mass effect. Brain volume: Within normal limits for age. Ventricles: Mild ventriculomegaly, that is slightly out of proportion to the size of the cortical sulci, thinning and upward displacement of the corpus callosum, with relative partial effac ement of the vertex region sulci. Some degree of normal pressure hydrocephalus cannot be excluded in the appropriate clinical setting. Foramen magnum: Unremarkable. Sella: Unremarkable. Paranasal / mastoid sinus es: No significant inflammatory disease. IMPRESSION: 1. No acute infa rcts. 2. 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 3. Moderate chronic microvasc ular ischemic changes. Signed by: Dr. Jacob Taveras M.D. on 01/27/2019 10:46 AM Dictated By: JACOB TAVERAS MD 1046 Transcribed By: VIOLA on 01/27/19 1046 COPY TO: BRI SARAH MD Urine Kohrpij0720-14-39 07:44:00* Test Item Value Reference Range Interpretation Comments Urine Culture (test code = 630-4) Organism: ESCHERICHIA COLI [facility] Ziyqhsm0015-83-84 07:44:00* Test Item Value Reference Range Interpretation Comments Urine Culture (test code = 630-4) Organism: ESCHERICHIA COLI [facility] Pisxvrl6912-27-45 07:44:00* Test Item Value Reference Range Interpretation Comments Urine Culture (test code = 630-4) Organism: ESCHERICHIA COLI [facility] Dallas[facility] Delirtu2421-74-06 07:44:00* Test Item Value Reference Range Interpretation Comments Urine Culture (test code = 630-4) Organism: ESCHERICHIA COLI [facility] Dallas[facility]ial Total Cells Counted 2019-01-24 08:00:00* Test Item Value Reference Range Interpretation Comments Differential Total Cells Counted (test code = Carmel tial Total Cells Counted) 100 [facility] DallasNeutrophils % (Manual)2019-01-24 08:00:00 * Test Item Value Reference Range Interpretation Comments Neutrophils % (Manual) (test code = 14586-7) 70 40-74 [facility] DallasLymphocytes % (Manual)2019-01-24 08:00:00 * Test Item Value Reference Range Interpretation Comments Lymphocytes % (Manual) (test code = 737-7) 17 19-48 L [facility] DallasMonocytes % (Manual)2019-01-24 08:00:00* Test Item Value Reference Range Interpretation Comments Monocytes % (Manual) (test code = 744-3) 10 3.4-9.0 H [facility] Dallas[facility]osinophils % (Manual)2019-01-24 08:00:00 * Test Item Value Reference Range Interpretation Comments Eosinophils % (Manual) (test code = 714-6) 3 0-7 [facility] Dallas[facility]ate[facility] Lsurxvkq2763-82-54 08:00:00* Test Item Value Reference Range Interpretation Comments Platelet Estimate (test code = 73020-1) ADEQUATE [facility] DallasPlatelet Morphology Poibwrm9297-74-27 08:00:00* Test Item Value Reference Range Interpretation Comments Platelet Morphology Comment (test code = 73648-0) NORMAL [facility] DallasRed Cell Morphology Pualewh8991-10-41 08:00:00* Test Item Value Reference Range Interpretation Comments Red Cell Morphology Comment (test code = 6742-1) NORMAL [facility] DallasDifferent[facility] Total Cells Counted 2019-01-24 08:00:00* Test Item Value Reference Range Interpretation Comments Differential Total Cells Counted (test code = Differen tial Total Cells Counted) 100 [facility] DallasNeutrophils % (Manual)2019-01-24 08:00:00 * Test Item Value Reference Range Interpretation Comments Neutrophils % (Manual) (test code = 70546-0) 70 40-74 [facility] DallasLymphocytes % (Manual)2019-01-24 08:00:00 * Test Item Value Reference Range Interpretation Comments Lymphocytes % (Manual) (test code = 737-7) 17 19-48 L [facility] DallasMonocytes % (Manual)2019-01-24 08:00:00* Test Item Value Reference Range Interpretation Comments Monocytes % (Manual) (test code = 744-3) 10 3.4-9.0 H [facility] DallasEosinophils % (Manual)2019-01-24 08:00:00 * Test Item Value Reference Range Interpretation Comments Eosinophils % (Manual) (test code = 714-6) 3 0-7 [facility] Wqgqrbov7675-88-22 08:00:00* Test Item Value Reference Range Interpretation Comments Platelet Estimate (test code = 75373-5) ADEQUATE [facility] DallasPlatelet Morphology Beltwrg0874-23-29 08:00:00* Test Item Value Reference Range Interpretation Comments Platelet Morphology Comment (test code = 11063-3) NORMAL [facility] Dallas[facility] Cell Morphology Asoqibr5239-92-98 08:00:00* Test Item Value Reference Range Interpretation Comments Red Cell Morphology Comment (test code = 6742-1) NORMAL [facility] Dallas[facility] Total Cells Counted 2019-01-24 08:00:00* Test Item Value Reference Range Interpretation Comments Differential Total Cells Counted (test code = Differnicanor tial Total Cells Counted) 100 [facility] DallasNeutrophils % (Manual)2019-01-24 08:00:00 * Test Item Value Reference Range Interpretation Comments Neutrophils % (Manual) (test code = 36773-9) 70 40-74 [facility] DallasLymphocytes % (Manual)2019-01-24 08:00:00 * Test Item Value Reference Range Interpretation Comments Lymphocytes % (Manual) (test code = 737-7) 17 19-48 L [facility] DallasMonocytes % (Manual)2019-01-24 08:00:00* Test Item Value Reference Range Interpretation Comments Monocytes % (Manual) (test code = 744-3) 10 3.4-9.0 H [facility] DallasEosinophils % (Manual)2019-01-24 08:00:00 * Test Item Value Reference Range Interpretation Comments Eosinophils % (Manual) (test code = 714-6) 3 0-7 [facility] Jtfjtlun9954-85-43 08:00:00* Test Item Value Reference Range Interpretation Comments Platelet Estimate (test code = 65327-7) ADEQUATE [facility] DallasPlatelet Morphology Nlufcjb4821-88-35 08:00:00* Test Item Value Reference Range Interpretation Comments Platelet Morphology Comment (test code = 61955-9) NORMAL [facility] DallasRed Cell Morphology Ydfbpfb4806-96-75 08:00:00* Test Item Value Reference Range Interpretation Comments Red Cell Morphology Comment (test code = 6742-1) NORMAL [facility] Dallas[facility] Total Cells Counted 2019-01-24 08:00:00* Test Item Value Reference Range Interpretation Comments Differential Total Cells Counted (test code = Differnicanor tial Total Cells Counted) 100 [facility] DallasNeutrophils % (Manual)2019-01-24 08:00:00 * Test Item Value Reference Range Interpretation Comments Neutrophils % (Manual) (test code = 82159-8) 70 40-74 [facility] DallasLymphocytes % (Manual)2019-01-24 08:00:00 * Test Item Value Reference Range Interpretation Comments Lymphocytes % (Manual) (test code = 737-7) 17 19-48 L [facility] DallasMonocytes % (Manual)2019-01-24 08:00:00* Test Item Value Reference Range Interpretation Comments Monocytes % (Manual) (test code = 744-3) 10 3.4-9.0 H [facility] DallasEosinophils % (Manual)2019-01-24 08:00:00 * Test Item Value Reference Range Interpretation Comments Eosinophils % (Manual) (test code = 714-6) 3 0-7 [facility]Pl[facility] Kxwuhzzn5685-05-32 08:00:00* Test Item Value Reference Range Interpretation Comments Platelet Estimate (test code = 59716-6) ADEQUATE [facility] DallasPlatelet Morphology Hjctuax6629-91-79 08:00:00* Test Item Value Reference Range Interpretation Comments Platelet Morphology Comment (test code = 42265-8) NORMAL [facility] DallasRed Cell Morphology Hrntner5469-10-35 08:00:00* Test Item Value Reference Range Interpretation Comments Red Cell Morphology Comment (test code = 6742-1) NORMAL [facility] DallasDifferent[facility] Total Cells Counted 2019-01-24 08:00:00* Test Item Value Reference Range Interpretation Comments Differential Total Cells Counted (test code = Differnicanor tial Total Cells Counted) 100 [facility] DallasNeutrophils % (Manual)2019-01-24 08:00:00 * Test Item Value Reference Range Interpretation Comments Neutrophils % (Manual) (test code = 80296-3) 70 40-74 [facility] DallasLymphocytes % (Manual)2019-01-24 08:00:00 * Test Item Value Reference Range Interpretation Comments Lymphocytes % (Manual) (test code = 737-7) 17 19-48 L [facility] DallasMonocytes % (Manual)2019-01-24 08:00:00* Test Item Value Reference Range Interpretation Comments Monocytes % (Manual) (test code = 744-3) 10 3.4-9.0 H [facility] DallasEosinophils % (Manual)2019-01-24 08:00:00 * Test Item Value Reference Range Interpretation Comments Eosinophils % (Manual) (test code = 714-6) 3 0-7 [facility]Pl[facility] Rbwhzhra4641-85-40 08:00:00* Test Item Value Reference Range Interpretation Comments Platelet Estimate (test code = 87348-7) ADEQUATE [facility] DallasPlatelet Morphology Cjpawdn5174-71-26 08:00:00* Test Item Value Reference Range Interpretation Comments Platelet Morphology Comment (test code = 28292-5) NORMAL [facility] DallasRed Cell Morphology Tvqmoeb7032-98-26 08:00:00* Test Item Value Reference Range Interpretation Comments Red Cell Morphology Comment (test code = 6742-1) NORMAL [facility] DallasDifferential Total Cells Counted 2019-01-24 08:00:00* Test Item Value Reference Range Interpretation Comments Differential Total Cells Counted (test code = Differnicanor tial Total Cells Counted) 100 [facility] DallasNeutrophils % (Manual)2019-01-24 08:00:00 * Test Item Value Reference Range Interpretation Comments Neutrophils % (Manual) (test code = 28988-0) 70 40-74 [facility] DallasLymphocytes % (Manual)2019-01-24 08:00:00 * Test Item Value Reference Range Interpretation Comments Lymphocytes % (Manual) (test code = 737-7) 17 19-48 L [facility] DallasMonocytes % (Manual)2019-01-24 08:00:00* Test Item Value Reference Range Interpretation Comments Monocytes % (Manual) (test code = 744-3) 10 3.4-9.0 H [facility] DallasEosinophils % (Manual)2019-01-24 08:00:00 * Test Item Value Reference Range Interpretation Comments Eosinophils % (Manual) (test code = 714-6) 3 0-7 [facility] DallasPlatelet Zpeyhmhv4659-88-13 08:00:00* Test Item Value Reference Range Interpretation Comments Platelet Estimate (test code = 44662-7) ADEQUATE [facility] DallasPlatelet Morphology Uancpmt8299-61-47 08:00:00* Test Item Value Reference Range Interpretation Comments Platelet Morphology Comment (test code = 13668-9) NORMAL [facility] DallasRed Cell Morphology Pnavbou8810-77-38 08:00:00* Test Item Value Reference Range Interpretation Comments Red Cell Morphology Comment (test code = 6742-1) NORMAL [facility] DallasDifferential Total Cells Counted 2019-01-24 08:00:00* Test Item Value Reference Range Interpretation Comments Differential Total Cells Counted (test code = Differen tial Total Cells Counted) 100 [facility] DallasNeutrophils % (Manual)2019-01-24 08:00:00 * Test Item Value Reference Range Interpretation Comments Neutrophils % (Manual) (test code = 47551-3) 70 40-74 [facility] DallasLymphocytes % (Manual)2019-01-24 08:00:00 * Test Item Value Reference Range Interpretation Comments Lymphocytes % (Manual) (test code = 737-7) 17 19-48 L [facility] DallasMonocytes % (Manual)2019-01-24 08:00:00* Test Item Value Reference Range Interpretation Comments Monocytes % (Manual) (test code = 744-3) 10 3.4-9.0 H [facility] DallasEosinophils % (Manual)2019-01-24 08:00:00 * Test Item Value Reference Range Interpretation Comments Eosinophils % (Manual) (test code = 714-6) 3 0-7 [facility] DallasPlatelet Gidxagei2078-79-72 08:00:00* Test Item Value Reference Range Interpretation Comments Platelet Estimate (test code = 43068-2) ADEQUATE [facility] DallasPlatelet Morphology Fqhxnkx0139-64-32 08:00:00* Test Item Value Reference Range Interpretation Comments Platelet Morphology Comment (test code = 60767-4) NORMAL [facility] DallasRed Cell Morphology Fukmajf9335-43-98 08:00:00* Test Item Value Reference Range Interpretation Comments Red Cell Morphology Comment (test code = 6742-1) NORMAL [facility] DallasTotal Ecqgtmhag1553-96-24 06:57:00* Test Item Value Reference Range Interpretation Comments Total Bilirubin (test code = 1975-2) 0.6 0.2-1.2 [facility] DallasAspartate Amino Transf (AST/SGOT) 2019-01-24 06:57:00* Test Item Value Reference Range Interpretation Comments Aspartate Amino Transf (AST/SGOT) (test code = Aspartate Amino Transf (AST/SGOT)) 10 5-34 [facility] DallasAlanine Aminotransferase (ALT/SGPT) 2019-01-24 06:57:00* Test Item Value Reference Range Interpretation Comments Alanine Aminotransferase (ALT/SGPT) (test code = 1742-6) 10 0-55 [facility] DallasTotal Zdmzsxp3337-09-20 06:57:00* Test Item Value Reference Range Interpretation Comments Total Protein (test code = 2885-2) 6.6 6.5-8.1 [facility] DallasAlbumin2019-08-09 06:57:00* Test Item Value Reference Range Interpretation Comments Albumin (test code = 1751-7) 3.1 3.5-5.0 L [facility] DallasGlobulin2019-08-09 06:57:00* Test Item Value Reference Range Interpretation Comments Globulin (test code = 68925-3) 3.5 2.3-3.5 [facility] DallasAlbumin/Globulin Ezoij7166-17-15 06:57:00 * Test Item Value Reference Range Interpretation Comments Albumin/Globulin Ratio (test code = 1759-0) 0.9 0.8-2.0 [facility] DallasAlkaline Biljrjhhnrv1555-32-56 06:57:00* Test Item Value Reference Range Interpretation Comments Alkaline Phosphatase (test code = 6768-6) 88 40-150 [facility] DallasCHEST SINGLE (PORTABLE)2019-01-23 06:19:00 [facility] [address] [place] [address] Patient Name: VU ALVAREZ MR #: [id number] : 1950 Age/Sex: 68/M Req #: [id number] Adm Physician: INEZ OLVERA MD Ordered by: DAYNA SHAH MD Report #: [id number] Location: [facility] Room/Bed: [facility] Procedure: 1 DX/CHEST SINGLE (PORTABLE) Exam Date: 01/23/19 Nicola sparks Time: 0532 REPORT STATUS: Signed Examination: Single AP view of the chest. COMPARISON: 01/22/2019 at 2157 h ours. INDICATION: Chest pain. DISCUSSION: Lines/tubes: None . Lungs: The lungs are mildly hypoinflated with bibasilar subsegmental a telectasis. Right upper lobe patchy density described on the prior examination is no longer visualized. Pleura: No pleural effusion or pneumothorax. Heart and mediastinum: The heart and the mediastinum are unremarkable. B ones and soft tissues: No acute bony abnormalities. Degenerative changes in the thoracic spine. IMPRESSION: 1. Bibasilar subsegmental atelectasis . Signed by: Dr. Dong Quintanilla M.D. on 01/23/2019 6:20 AM Dict ated By: ANTHONY QUINTANILLA MD, MD 9 Transcribed By: VIOLA on 01/23/19619 COPY TO: DAYNA SHAH MD CT ABDOMEN/PELVIS G9418-10-16 01:01:00 [place] [address] Patient Name: VU ALVAREZ MR #: [id number] : 1950 Age/Sex: 68/M Req #: [id number] Adm Physician: INEZ OLVERA MD Ordered by: DAYNA SHAH MD Report #: [id number] Location: MED/[facility]3 Room/Bed: [facility] Procedure: 7 CT/CT ABDOMEN/PELVIS W Exam Date: 01/22/19 Exam Ti me: 2359 REPORT STATUS: Signed E XAM: CT Abdomen and Pelvis WITH contrast INDICATION: Chest pain. Leukocytosi s. COMPARISON: None. TECHNIQUE: Abdomen and pelvis were scanned utilizing a multidetector helical scanner from the lung base to the pubic symphysis after administration of IV contrast. Coronal and sagittal reformations were obtained . Routine protocol was performed. Scan was performed when during portal venous phase. IV CONTRAST: 100 cc Isovue-300 ORAL CONTRAST: Water RADIATION DOSE: Total DLP: 878.63 mGy*cm Es timated effective dose: (DLP x 0.015 x size factor) mSv COMPLICATI ONS: None FINDINGS: LINES and TUBES: None. LOWER THORAX: Bibasil ar dependent atelectasis. HEPATOBILIARY: No focal hepatic lesions. No biliary ductal dilation. GALLBLADDER: There are stones in the gallbladder. No wall thickening. SPLEEN: No splenomegaly. PANCREAS: No focal mas ses or ductal dilatation. ADRENALS: Mild thickening of the adrenal glands bilaterally. KIDNEYS/URETERS: Kidneys enhance symmetrically. No hydroneph rosis. No cystic or solid mass lesions. No stones. GI TRACT: No abnormal distention, wall thickening, or evidence of bowel obstruction. There are div erticula within the colon without evidence of diverticulitis. There is mild s tranding about the proximal sigmoid colon diverticula as seen on axial images 76 and 77 colitis. Appendix is normal. PELVIC ORGANS/BLADDER: The prostate is mildly enlarged measuring 5.5 cm in transverse dimension. [place] catheter wi thin decompressed urinary bladder. LYMPH NODES: No lymphadenopathy. V ESSELS: There is mild atherosclerotic disease in the aorta and major arterial branches. PERITONEUM / RETROPERITONEUM: No free air or fluid. BONES: L aminectomy and fusion of L2-S1 with pedicle screws at L2-L3. Lower thoracic di sh. SOFT TISSUES: Unremarkable. IMPRESSION: 1. Findings concern ing for mild sigmoid diverticulitis in the proper clinical setting. No abscess formation. 2. Cholelithiasis without evidence of cholecystitis or biliary dilatation. Signed by: Dr. Dong Quintanilla M.D. on 01/23/2019 1:09 AM Dictated By: ANTHONY QUINTANILLA MD, MD 8 Transcribed By: VIOLA on 01/23/19108 COPY TO: DAYNA SHAH MD Urine [id number] 23:27:00* Test Item Value Reference Range Interpretation Comments Urine WBC (test code = 5821-4) >50 0-5 H [facility] DallasUrine SZF1960-02-01 23:27:00* Test Item Value Reference Range Interpretation Comments Urine RBC (test code = 86143-9) 11-20 0-5 H [facility] DallasUrine Fozhsvew4541-88-68 23:27:00* Test Item Value Reference Range Interpretation Comments Urine Bacteria (test code = 47722-2) MANY NONE H [facility] DallasUrine Epithelial Uqcgl7555-12-53 23:27:00 * Test Item Value Reference Range Interpretation Comments Urine Epithelial Cells (test code = 95272-4) FEW NONE [facility] DallasLactic Acid Qowef5363-61-95 23:22:00* Test Item Value Reference Range Interpretation Comments Lactic Acid Level (test code = Lactic Acid Level) 14.9 4.5- 19.8 [facility] DallasLactic Acid Zuzop5915-71-66 23:22:00* Test Item Value Reference Range Interpretation Comments Lactic Acid Level (test code = Lactic Acid Level) 14.9 4.5- 19.8 [facility] DallasLactic Acid Ppqti5395-46-92 23:22:00* Test Item Value Reference Range Interpretation Comments Lactic Acid Level (test code = Lactic Acid Level) 14.9 4.5- 19.8 [facility] DallasLactic Acid Frnmr7883-21-84 23:22:00* Test Item Value Reference Range Interpretation Comments Lactic Acid Level (test code = Lactic Acid Level) 14.9 4.5- 19.8 [facility] DallasUrine Gkhyd9638-81-88 23:07:00* Test Item Value Reference Range Interpretation Comments Urine Color (test code = 5778-6) YELLOW YELLOW [facility] DallasUrine Qmnuadk1126-00-66 23:07:00* Test Item Value Reference Range Interpretation Comments Urine Clarity (test code = 70044-8) CLOUDY CLEAR H [facility] DallasUrine Specific Odyohcb3713-87-51 23:07:00 * Test Item Value Reference Range Interpretation Comments Urine Specific [place] (test code = 5811-5) >=1.030 1.010-1.02 5 [facility] DallasUrine dZ6834-81-45 23:07:00* Test Item Value Reference Range Interpretation Comments Urine pH (test code = 84969-7) 6 5-7 [facility] DallasU[facility] Leukocyte Whbzcvri7363-11-48 23:07:00* Test Item Value Reference Range Interpretation Comments Urine Leukocyte Esterase (test code = 62921-8) SMALL NEGATIV E [facility] DallasUrine Jtokbhf8109-10-84 23:07:00* Test Item Value Reference Range Interpretation Comments Urine Nitrite (test code = 97991-1) POSITIVE NEGATIVE H [facility] DallasUrine Zwzumba8870-95-18 23:07:00* Test Item Value Reference Range Interpretation Comments Urine Protein (test code = 85403-7) 2+ NEGATIVE H [facility] DallasUrine Glucose (UA)2019-01-22 23:07:00* Test Item Value Reference Range Interpretation Comments Urine Glucose (UA) (test code = 64942-8) NEGATIVE NEGATIVE [facility] DallasU[facility] Lcyhtvw9913-61-62 23:07:00* Test Item Value Reference Range Interpretation Comments Urine Ketones (test code = 38760-7) NEGATIVE NEGATIVE [facility] DallasUrine Wjveqgbzimzb0124-49-34 23:07:00* Test Item Value Reference Range Interpretation Comments Urine Urobilinogen (test code = 26502-5) 0.2 0.2-1 [facility] DallasU[facility] Kdrtbqtix0969-40-81 23:07:00* Test Item Value Reference Range Interpretation Comments Urine Bilirubin (test code = 1977-8) NEGATIVE NEGATIVE [facility] DallasU[facility] Nufzt9219-92-56 23:07:00* Test Item Value Reference Range Interpretation Comments Urine Blood (test code = 06823-6) MODERATE NEGATIVE [facility] DallasCT BRAIN GZ1750-16-88 22:33:00 [facility] [address] [place] [address] Patient Name: VU ALVAREZ MR #: [id number] : 1950 Age/Sex: 68/M Req #: [id number] Adm Physician: Ordered by: DAYNA SHAH MD Report #: [id number] Location: ER Room/Bed: Procedure: [id number] CT/CT BRAIN WO Exam Date: 01/22/19 Exam Time: 2149 REPORT STATUS: Signed History:AMS Comparison studies:CT head Technique: Axial images were obtained from the skull base to the vertex. Coronal and sagittal images reconstructed from t he axial data. Intravenous contrast: None Dose modulation, iterative reconst ruction, and/or weight based adjustment of the mA/kV was utilized to reduce th e radiation dose to as low as reasonably achievable. Findings: Scalp /skull: No abnormalities. Extra-axial spaces: No masses. No fluid co llections. Brain sulci: Mildly prominent. Ventricles: Moderate dilation o f the lateral and third ventricles without active hydrocephalus. Parenchy ma: Scattered hypodensities in the supratentorial white matter are small vess el ischemic changes. No masses, hemorrhage, acute or chronic cortical vascular insults. Sellar/suprasellar region: No abnormalities. Craniocervical j unction: Patent foramen magnum. No Chiari one malformation. Incidental fin dings: Atherosclerotic calcifications in the carotid siphons . Impression : No acute abnormalities. Chronic findings: 1. Moderate ventriculom egaly, stable from previous examination, stable from. 2. Moderate supratentor ial white matter small vessel ischemic changes. Signed by: DR Phong Madrigal M.D. on 01/22/2019 10:38 PM Dictated By: PHONG BUCKLEY MD El ectronically Signed By: PHONG BUCKLEY MD on 01/22/192237 Transcribed By: VIOLA on 01/22/192237 COPY TO: DAYNA SHAH MD CHEST SINGLE (PORTABLE)2019-01-22 22:15:00 [place] [address] Patient Name: VU ALVAREZ MR #: [id number] : 1950 Age/Sex: 68/M Req #: [id number] Adm Physician: Ordered by: DAYNA SHAH MD Report #: [id number] Location: ER Room/Bed: Procedure: [id number] DX/CHEST SINGLE (PORTABLE) Exam Date: 01/22/19 Exam Time: 2157 REPORT STATUS: Signed Examination: Single AP view of the chest. COMPARISON: 07/25/2018. INDIC ATION: Chest pain. DISCUSSION: Lines/tubes: None. Lungs: T he lungs are mildly hyperinflated. Mild patchy density in the right upper lobe may represent summation of shadows versus focus of infection proper clinical setting. Mild bibasilar subsegmental atelectasis. Pleura: No pleural effus ion or pneumothorax. Heart and mediastinum: The heart and the mediastinum are unremarkable. Bones and soft tissues: No acute bony abnormalities. De generative changes in the thoracic spine. IMPRESSION: 1. Mild pat frannie density in the right upper lobe may represent summation of shadows versus focus of infection proper clinical setting. Recommend chest PA and lateral vie ws of patient's condition permits. Signed by: Radha Wilson on 01/22/2019 10:17 PM Dictated By: ANTHONY QUINTANILLA MD, MD 16 Transcribed By: VIOLA on 01/03 COPY TO: DAYNA SHAH MD Creatine Kinase MB 2019-01-22 22:13:00* Test Item Value Reference Range Interpretation Comments Creatine Kinase MB (test code = 62425-4) 0.60 0-5.0 [facility] DallasTroponin [id number] 22:13:00* Test Item Value Reference Range Interpretation Comments Troponin I (test code = GSS3609) 0.001 0-0.300 [facility] DallasCreatine Bdlffh4727-55-57 22:06:00* Test Item Value Reference Range Interpretation Comments Creatine Kinase (test code = 2157-6) 36 30-200 [facility] DallasUrine CEY5796-39-45 21:30:00* Test Item Value Reference Range Interpretation Comments Urine WBC (test code = 5821-4) 6-10 0-5 H [facility] DallasU[facility] CZB1208-26-61 21:30:00* Test Item Value Reference Range Interpretation Comments Urine RBC (test code = 70795-9) 21-50 0-5 H [facility] DallasUrine Zqrbychc3086-31-09 21:30:00* Test Item Value Reference Range Interpretation Comments Urine Bacteria (test code = 44915-6) RARE NONE [facility] DallasUrine Epithelial Drtpx7239-98-19 21:30:00 * Test Item Value Reference Range Interpretation Comments Urine Epithelial Cells (test code = 90056-2) RARE NONE [facility] DallasUrine Calcium Oxalate Fyogwdmh3345-22-08 21:30:00* Test Item Value Reference Range Interpretation Comments Urine Calcium Oxalate Crystals (test code = 5774-5) FEW FE W [facility] DallasUrine Calcium Oxalate Tcfvzbou6880-52-16 21:30:00* Test Item Value Reference Range Interpretation Comments Urine Calcium Oxalate Crystals (test code = 5774-5) FEW FE W [facility] DallasUrine Calcium Oxalate Alvyugfn5545-10-89 21:30:00* Test Item Value Reference Range Interpretation Comments Urine Calcium Oxalate Crystals (test code = 5774-5) [facility]W [facility] Lkefztrr3082-56-53 21:30:00* Test Item Value Reference Range Interpretation Comments Urine Calcium Oxalate Crystals (test code = 5774-5) FEW [facility] Cal[facility] Oxalate Ijiivunb9489-09-52 21:30:00* Test Item Value Reference Range Interpretation Comments Urine Calcium Oxalate Crystals (test code = 5774-5) FEW [facility] Cal[facility] Oxalate Ewaixqxc8408-27-44 21:30:00* Test Item Value Reference Range Interpretation Comments Urine Calcium Oxalate Crystals (test code = 5774-5) FEW [facility] Cal[facility] Oxalate Joyverdh0382-21-52 21:30:00* Test Item Value Reference Range Interpretation Comments Urine Calcium Oxalate Crystals (test code = 5774-5) FEW [facility] Cal[facility] Oxalate Yfzzibdj8173-49-73 21:30:00* Test Item Value Reference Range Interpretation Comments Urine Calcium Oxalate Crystals (test code = 5774-5) FEW [facility] Xwgmp7774-96-72 21:25:00* Test Item Value Reference Range Interpretation Comments Urine Color (test code = 5778-6) YELLOW YELLOW [facility] Yhnhcos2773-10-13 21:25:00* Test Item Value Reference Range Interpretation Comments Urine Clarity (test code = 65219-4) SL CLOUDY CLEAR H [facility] DallasUrine Specific Ngmshnz3915-07-12 21:25:00 * Test Item Value Reference Range Interpretation Comments Urine Specific [place] (test code = 5811-5) >=1.030 1.010-1.02 5 [facility] iC6384-45-71 21:25:00* Test Item Value Reference Range Interpretation Comments Urine pH (test code = 31797-8) 6 5-7 [facility] Leukocyte Vyzvqtip0805-41-99 21:25:00* Test Item Value Reference Range Interpretation Comments Urine Leukocyte Esterase (test code = 08587-9) SMALL NEGATIV E [facility] DallasU[facility] Cowaosc2352-17-10 21:25:00* Test Item Value Reference Range Interpretation Comments Urine Nitrite (test code = 13147-5) NEGATIVE NEGATIVE [facility] DallasU[facility] Wwhdhho1050-81-41 21:25:00* Test Item Value Reference Range Interpretation Comments Urine Protein (test code = 38734-0) 2+ NEGATIVE H [facility] DallasU[facility] Glucose (UA)2019-01-09 21:25:00* Test Item Value Reference Range Interpretation Comments Urine Glucose (UA) (test code = 01673-0) NEGATIVE NEGATIVE [facility] DallasU[facility] Vtyclsy0641-83-35 21:25:00* Test Item Value Reference Range Interpretation Comments Urine Ketones (test code = 97190-5) NEGATIVE NEGATIVE [facility] DallasU[facility] Wubfkqykkawf1822-15-53 21:25:00* Test Item Value Reference Range Interpretation Comments Urine Urobilinogen (test code = 13772-2) 0.2 0.2-1 [facility] DallasU[facility] Txnvixphy4740-21-58 21:25:00* Test Item Value Reference Range Interpretation Comments Urine Bilirubin (test code = 1977-8) NEGATIVE NEGATIVE [facility] DallasU[facility] Mrmme6119-05-20 21:25:00* Test Item Value Reference Range Interpretation Comments Urine Blood (test code = 01758-8) 3+ NEGATIVE [facility] DallasBlood Gyujczv2936-71-79 08:50:00* Test Item Value Reference Range Interpretation Comments Blood Culture (test code = 17043949) NO GROWTH AFTER 5 DAYS, FINAL REPORT [facility] DallasCortisol AM Rszhgl8235-98-13 23:29:00* Test Item Value Reference Range Interpretation Comments Cortisol AM Sample (test code = 9813-7) 15.8 6.2-19.4 08:24 DRAW TIMEPerformed at: - [facility] Civxyrg3837 [facility], X [id number] Director: Mic Sneed MD, Phone: [phone] Health Presbyterian DallasCortisol AM Awiyxl7573-56-21 23:29:00* Test Item Value Reference Range Interpretation Comments Cortisol AM Sample (test code = 9813-7) 15.8 6.2-19.4 08:24 DRAW TIMEPerformed at: [address], [place] X [id number] Director: Mic Sneed MD, Phone: [phone] [place], [place] [address]Cortisol AM Fugvbw6303-59-63 23:29:00* Test Item Value Reference Range Interpretation Comments Cortisol AM Sample (test code = 9813-7) 15.8 6.2-19.4 08:24 DRAW TIMEPerformed at: [address], [place] X [id number] Director: Mic Sneed MD, Phone: [phone] [place], [place] [address]Cortisol AM Sapozj2738-66-64 23:29:00* Test Item Value Reference Range Interpretation Comments Cortisol AM Sample (test code = 9813-7) 15.8 6.2-19.4 08:24 DRAW TIMEPerformed at: [facility] [address], [place] X [id number] Director: Mic Sneed MD, Phone: [phone] [place], [place] [address]Cortisol AM Sfmzoo5175-72-87 23:29:00* Test Item Value Reference Range Interpretation Comments Cortisol AM Sample (test code = 9813-7) 15.8 6.2-19.4 08:24 DRAW TIMEPerformed at: [facility] [address], [place] X [id number] Director: Mic Sneed MD, Phone: [phone] [place], [place] [address]Cortisol AM Ztjacb1156-42-29 23:29:00* Test Item Value Reference Range Interpretation Comments Cortisol AM Sample (test code = 9813-7) 15.8 6.2-19.4 08:24 DRAW TIMEPerformed at: [address], T X [id number] Director: Mic Sneed MD, Phone: [phone] [place], [place] [address]Cortisol AM Umhwdk2170-08-82 23:29:00* Test Item Value Reference Range Interpretation Comments Cortisol AM Sample (test code = 9813-7) 15.8 6.2-19.4 08:24 DRAW TIMEPerformed at: - [facility] Tvabqyx6239 [facility] X [id number] Director: Mic Sneed MD, Phone: [phone] [facility] Fplbwdc9295-16-14 16:36:00* Test Item Value Reference Range Interpretation Comments Bedside Glucose (test code = 49665-8) 213 70-120 H Meter ID: [id number] [facility] Glucose 2018-07-27 16:36:00* Test Item Value Reference Range Interpretation Comments Bedside Glucose (test code = 70485-0) 213 70-120 H Meter ID: [id number] [facility] Culture 2018-07-27 12:12:00* Test Item Value Reference Range Interpretation Comments Urine Culture (test code = 630-4) Organism: STAPHYLOCOCCUS EPIDERMI DIS [facility] Pogsjbu1953-83-91 12:12:00* Test Item Value Reference Range Interpretation Comments Urine Culture (test code = 630-4) Organism: STAPHYLOCOCCUS EPIDERMI DIS [facility] Djefoim8475-01-97 12:12:00* Test Item Value Reference Range Interpretation Comments Urine Culture (test code = 630-4) Organism: STAPHYLOCOCCUS EPIDERMI DIS [facility] Qwwspst7008-58-65 12:12:00* Test Item Value Reference Range Interpretation Comments Urine Culture (test code = 630-4) Organism: STAPHYLOCOCCUS EPIDERMI DIS [facility] Drchblr7906-33-01 12:12:00* Test Item Value Reference Range Interpretation Comments Urine Culture (test code = 630-4) Organism: STAPHYLOCOCCUS EPIDERMI DIS [facility] Wujrwuf4554-28-26 12:12:00* Test Item Value Reference Range Interpretation Comments Urine Culture (test code = 630-4) Organism: STAPHYLOCOCCUS EPIDERMI DIS [facility] Wvmdxdc0763-43-28 12:12:00* Test Item Value Reference Range Interpretation Comments Urine Culture (test code = 630-4) No Result Data Provided [facility] Zkuaudb5145-24-63 12:12:00* Test Item Value Reference Range Interpretation Comments Urine Culture (test code = 630-4) No Result Data Provided [facility] DallasBlood Hyvejwp7179-99-61 08:50:00* Test Item Value Reference Range Interpretation Comments Blood Culture (test code = 40185885) NO GROWTH AFTER 48 HOURS [facility] (TSH[facility] 2018-07-26 07:24:00* Test Item Value Reference Range Interpretation Comments Thyroid Stimulating Hormone (TSH) (test code = 37733-4) 0.794 0.350-4.940 [facility] (TSH[facility] 2018-07-26 07:24:00* Test Item Value Reference Range Interpretation Comments Thyroid Stimulating Hormone (TSH) (test code = 51183-2) 0.794 0.350-4.940 [facility]Th[facility] Stimulating Hormone (TSH) 2018-07-26 07:24:00* Test Item Value Reference Range Interpretation Comments Thyroid Stimulating Hormone (TSH) (test code = 55952-2) 0.794 0.350-4.940 [facility]one (TSH) 2018-07-26 07:24:00* Test Item Value Reference Range Interpretation Comments Thyroid Stimulating Hormone (TSH) (test code = 62523-1) 0.794 0.350-4.940 [facility] DallasThyroid Stimulating Hormone (TSH) 2018-07-26 07:24:00* Test Item Value Reference Range Interpretation Comments Thyroid Stimulating Hormone (TSH) (test code = 45920-5) 0.794 0.350-4.940 [facility] DallasThy[facility] Stimulating Hormone (TSH) 2018-07-26 07:24:00* Test Item Value Reference Range Interpretation Comments Thyroid Stimulating Hormone (TSH) (test code = 83314-6) 0.794 0.350-4.940 [facility] DallasTh[facility]ulating H[facility]one (TSH) 2018-07-26 07:24:00* Test Item Value Reference Range Interpretation Comments Thyroid Stimulating Hormone (TSH) (test code = 22682-4) 0.794 0.350-4.940 [facility] DallasThy[facility] Stimulating Hormone (TSH) 2018-07-26 07:24:00* Test Item Value Reference Range Interpretation Comments Thyroid Stimulating Hormone (TSH) (test code = 19877-6) 0.794 0.350-4.940 [facility] Awsmu7455-32-76 07:04:00* Test Item Value Reference Range Interpretation Comments Sodium Level (test code = 2951-2) 137 136-145 [facility] DallasPotassium Othxm9099-43-25 07:04:00* Test Item Value Reference Range Interpretation Comments Potassium Level (test code = 2823-3) 4.1 3.5-5.1 [facility] DallasChloride Kpkog6081-17-58 07:04:00* Test Item Value Reference Range Interpretation Comments Chloride Level (test code = 2075-0) 103 98-107 [facility] DallasCarbon Dioxide Wuymo0867-88-23 07:04:00* Test Item Value Reference Range Interpretation Comments Carbon Dioxide Level (test code = 2028-9) 25 22-29 [facility] DallasAnion Spx8160-04-19 07:04:00* Test Item Value Reference Range Interpretation Comments Anion Gap (test code = 26572-8) 13.1 8-16 [facility] DallasBlood Urea Zleurolm3203-70-92 07:04:00* Test Item Value Reference Range Interpretation Comments Blood Urea Nitrogen (test code = 3094-0) 14 7-26 [facility] DallasCreatinine2019-02-08 07:04:00* Test Item Value Reference Range Interpretation Comments Creatinine (test code = 2160-0) 0.80 0.72-1.25 [facility] DallasBUN/Creatinine Iwaen9711-44-45 07:04:00* Test Item Value Reference Range Interpretation Comments BUN/Creatinine Ratio (test code = 3097-3) 18 6-[address] [facility] Glomerular Filtration Rate 2018-07-26 07:04:00* Test Item Value Reference Range Interpretation Comments Estimat Glomerular Filtration Rate (test code = 294683940) > 60 >60 Ranges were taken from the National Kidney Disease Education Program and the [facility] Kid[facility] Foundation literature.Reference ranges:60 or greater: Joshwr36-71 ( for 3 consecutive months): Chronic kidney disease 15 or less: Kidney failureTexas [facility] Presbyterian DallasGlucose Uzvvz3438-38-90 07:04:00* Test Item Value Reference Range Interpretation Comments Glucose Level (test code = HJP0755) 186 74-118 H [facility] DallasCalcium Hqahi2907-95-11 07:04:00* Test Item Value Reference Range Interpretation Comments Calcium Level (test code = 94241-1) 9.4 8.4-10.2 [facility] DallasTotal Xtmwqjlks5074-57-88 07:04:00* Test Item Value Reference Range Interpretation Comments Total Bilirubin (test code = 1975-2) 0.2 0.2-1.2 [facility] DallasAspartate Amino Transf (AST/SGOT) 2018-07-26 07:04:00* Test Item Value Reference Range Interpretation Comments Aspartate Amino Transf (AST/SGOT) (test code = Aspartate Amino Transf (AST/SGOT)) 21 5-34 [facility] DallasAlanine Aminotransferase (ALT/SGPT) 2018-07-26 07:04:00* Test Item Value Reference Range Interpretation Comments Alanine Aminotransferase (ALT/SGPT) (test code = 1742-6) 30 0-55 [facility] DallasTotal Xmawfnk3064-96-77 07:04:00* Test Item Value Reference Range Interpretation Comments Total Protein (test code = 2885-2) 7.2 6.5-8.1 [facility] DallasAlbumin2019-02-08 07:04:00* Test Item Value Reference Range Interpretation Comments Albumin (test code = 1751-7) 3.1 3.5-5.0 L [facility] DallasGlobulin2019-02-08 07:04:00* Test Item Value Reference Range Interpretation Comments Globulin (test code = 73563-2) 4.1 2.3-3.5 H [facility] DallasAlbumin/Globulin Bpoug6558-72-42 07:04:00 * Test Item Value Reference Range Interpretation Comments Albumin/Globulin Ratio (test code = 1759-0) 0.8 0.8-2.0 [facility] DallasAlkaline Oeebpfhhkbf3132-92-20 07:04:00* Test Item Value Reference Range Interpretation Comments Alkaline Phosphatase (test code = 6768-6) 111 40-150 [facility] DallasTriglycerides Rhglv4279-27-55 07:04:00* Test Item Value Reference Range Interpretation Comments Triglycerides Level (test code = 2571-8) 114 0-149 [facility] DallasCholesterol Mhxxi7573-80-03 07:04:00* Test Item Value Reference Range Interpretation Comments Cholesterol Level (test code = 2093-3) 103 0-199 Less than 200 mg/dL Low Tnfc005 - 239 mg/dL Borderline Ruid067 m g/dl and greater High Risk [facility] DallasLDL Fnlduohntan1926-60-80 07:04:00* Test Item Value Reference Range Interpretation Comments LDL Cholesterol (test code = 2089-1) 48 60-130 L [facility] DallasHDL Jyeauukkxkz5763-89-31 07:04:00* Test Item Value Reference Range Interpretation Comments HDL Cholesterol (test code = 2085-9) 32 40-60 L [facility] DallasCholesterol/HDL Mmnoz2528-72-86 07:04:00 * Test Item Value Reference Range Interpretation Comments Cholesterol/HDL Ratio (test code = 9830-1) 3.2 3.9-4.[address] [facility] Centerodium Dieif3296-94-40 07:04:00* Test Item Value Reference Range Interpretation Comments Sodium Level (test code = 2951-2) 137 136-145 [facility] DallasPotassium Kdnkj8700-54-98 07:04:00* Test Item Value Reference Range Interpretation Comments Potassium Level (test code = 2823-3) 4.1 3.5-5.1 [facility] DallasChloride Yxxuu4049-09-21 07:04:00* Test Item Value Reference Range Interpretation Comments Chloride Level (test code = 2075-0) 103 98-107 [facility] DallasCarbon Dioxide Vkxhl3021-39-30 07:04:00* Test Item Value Reference Range Interpretation Comments Carbon Dioxide Level (test code = 2028-9) 25 22-29 [facility] DallasAnion Ofq1693-68-03 07:04:00* Test Item Value Reference Range Interpretation Comments Anion Gap (test code = 96085-6) 13.1 8-16 [facility] DallasBlood Urea Cdhfzlsb0075-37-99 07:04:00* Test Item Value Reference Range Interpretation Comments Blood Urea Nitrogen (test code = 3094-0) 14 7-26 [facility] DallasCreatinine2019-02-08 07:04:00* Test Item Value Reference Range Interpretation Comments Creatinine (test code = 2160-0) 0.80 0.72-1.25 [facility] DallasBUN/Creatinine Axilt9684-31-91 07:04:00* Test Item Value Reference Range Interpretation Comments BUN/Creatinine Ratio (test code = 3097-3) 18 6-25 [facility] DallasEstimat Glomerular Filtration Rate 2018-07-26 07:04:00* Test Item Value Reference Range Interpretation Comments Estimat Glomerular Filtration Rate (test code = 893404120) > 60 >60 Ranges were taken from the National Kidney Disease Education Program and the [facility] Kid[facility] Foundation literature.Reference ranges:60 or greater: Anmjai51-18 ( for 3 consecutive months): Chronic kidney disease 15 or less: Kidney failureTexas Health Presbyterian DallasGlucose Whtfl1768-02-84 07:04:00* Test Item Value Reference Range Interpretation Comments Glucose Level (test code = ABE5154) 186 74-118 H [facility] DallasCalcium Vrsui0267-74-63 07:04:00* Test Item Value Reference Range Interpretation Comments Calcium Level (test code = 43874-4) 9.4 8.4-10.2 [facility] DallasTotal Zewwqqzhw4283-96-61 07:04:00* Test Item Value Reference Range Interpretation Comments Total Bilirubin (test code = 1975-2) 0.2 0.2-1.2 [facility] DallasAspartate Amino Transf (AST/SGOT) 2018-07-26 07:04:00* Test Item Value Reference Range Interpretation Comments Aspartate Amino Transf (AST/SGOT) (test code = Aspartate Amino Transf (AST/SGOT)) 21 5-34 [facility] DallasAlanine Aminotransferase (ALT/SGPT) 2018-07-26 07:04:00* Test Item Value Reference Range Interpretation Comments Alanine Aminotransferase (ALT/SGPT) (test code = 1742-6) 30 0-55 [facility] DallasTotal Ehokudp1295-63-04 07:04:00* Test Item Value Reference Range Interpretation Comments Total Protein (test code = 2885-2) 7.2 6.5-8.1 [facility] DallasAlbumin2019-02-08 07:04:00* Test Item Value Reference Range Interpretation Comments Albumin (test code = 1751-7) 3.1 3.5-5.0 L [facility] DallasGlobulin2019-02-08 07:04:00* Test Item Value Reference Range Interpretation Comments Globulin (test code = 21477-7) 4.1 2.3-3.5 H [facility] DallasAlbumin/Globulin Unxrs6021-20-32 07:04:00 * Test Item Value Reference Range Interpretation Comments Albumin/Globulin Ratio (test code = 1759-0) 0.8 0.8-2.0 [facility] DallasAlkaline Vlrdovyusje9775-78-83 07:04:00* Test Item Value Reference Range Interpretation Comments Alkaline Phosphatase (test code = 6768-6) 111 40-150 [facility] DallasTriglycerides Mctma5477-13-70 07:04:00* Test Item Value Reference Range Interpretation Comments Triglycerides Level (test code = 2571-8) 114 0-149 [facility] DallasCholesterol Yunoe9261-52-52 07:04:00* Test Item Value Reference Range Interpretation Comments Cholesterol Level (test code = 2093-3) 103 0-199 Less than 200 mg/dL Low Wrge960 - 239 mg/dL Borderline Bayq605 m g/dl and greater High Risk [facility] DallasLDL Zlzaxksnzdb0917-72-32 07:04:00* Test Item Value Reference Range Interpretation Comments LDL Cholesterol (test code = 2089-1) 48 60-[address] [facility] Wnwwsoiykfm3004-58-35 07:04:00* Test Item Value Reference Range Interpretation Comments HDL Cholesterol (test code = 2085-9) 32 40-60 L [facility] DallasCholesterol/HDL Zmplp4770-04-78 07:04:00 * Test Item Value Reference Range Interpretation Comments Cholesterol/HDL Ratio (test code = 9830-1) 3.2 3.9-4.7 L [facility] DallasTriglycerides Tfsqx3019-26-61 07:04:00* Test Item Value Reference Range Interpretation Comments Triglycerides Level (test code = 2571-8) 114 0-149 [facility] DallasCholesterol Kzbcv3315-12-49 07:04:00* Test Item Value Reference Range Interpretation Comments Cholesterol Level (test code = 2093-3) 103 0-199 Less than 200 mg/dL Low Uaka448 - 239 mg/dL Borderline Bfbe210 m g/dl and greater High Risk [facility] DallasLDL Qyihkwdghgr8590-27-85 07:04:00* Test Item Value Reference Range Interpretation Comments LDL Cholesterol (test code = 2089-1) 48 60-[address] [facility] Xsznuhrniok8877-80-88 07:04:00* Test Item Value Reference Range Interpretation Comments HDL Cholesterol (test code = 2085-9) 32 40-60 L [facility] DallasCholesterol/HDL Gfgzf4850-34-59 07:04:00 * Test Item Value Reference Range Interpretation Comments Cholesterol/HDL Ratio (test code = 9830-1) 3.2 3.9-4.7 L [facility] DallasTriglycerides Hktat7779-68-14 07:04:00* Test Item Value Reference Range Interpretation Comments Triglycerides Level (test code = 2571-8) 114 0-149 [facility] DallasCholesterol Achqc3668-55-21 07:04:00* Test Item Value Reference Range Interpretation Comments Cholesterol Level (test code = 2093-3) 103 0-199 Less than 200 mg/dL Low Rwnt276 - 239 mg/dL Borderline Hjcw454 m g/dl and greater High Risk [facility] DallasLDL Smfvagwariu3331-31-06 07:04:00* Test Item Value Reference Range Interpretation Comments LDL Cholesterol (test code = 2089-1) 48 60-[address] [facility] Gcnlpvtasoe6040-89-61 07:04:00* Test Item Value Reference Range Interpretation Comments HDL Cholesterol (test code = 2085-9) 32 40-60 L [facility] DallasCholesterol/HDL Wmfxl1557-09-92 07:04:00 * Test Item Value Reference Range Interpretation Comments Cholesterol/HDL Ratio (test code = 9830-1) 3.2 3.9-4.7 L [facility] DallasTriglycerides Ufxan1559-90-82 07:04:00* Test Item Value Reference Range Interpretation Comments Triglycerides Level (test code = 2571-8) 114 0-149 [facility] DallasCholesterol Ycrpf9973-21-67 07:04:00* Test Item Value Reference Range Interpretation Comments Cholesterol Level (test code = 2093-3) 103 0-199 Less than 200 mg/dL Low Qfly407 - 239 mg/dL Borderline Hjxj371 m g/dl and greater High Risk [facility] DallasLDL Yvemjmvzkiy4827-15-14 07:04:00* Test Item Value Reference Range Interpretation Comments LDL Cholesterol (test code = 2089-1) 48 60-[address] [facility] Fgzydjackhb8079-38-43 07:04:00* Test Item Value Reference Range Interpretation Comments HDL Cholesterol (test code = 2085-9) 32 40-60 L [facility] DallasCholesterol/HDL Qofgh2420-93-49 07:04:00 * Test Item Value Reference Range Interpretation Comments Cholesterol/HDL Ratio (test code = 9830-1) 3.2 3.9-4.7 L [facility] DallasTriglycerides Gkeni7028-09-88 07:04:00* Test Item Value Reference Range Interpretation Comments Triglycerides Level (test code = 2571-8) 114 0-149 [facility] DallasCholesterol Oeplt2671-36-30 07:04:00* Test Item Value Reference Range Interpretation Comments Cholesterol Level (test code = 2093-3) 103 0-199 Less than 200 mg/dL Low Dgju263 - 239 mg/dL Borderline Bflw557 m g/dl and greater High Risk [facility] DallasLDL Jpgiolcgvxd7010-30-63 07:04:00* Test Item Value Reference Range Interpretation Comments LDL Cholesterol (test code = 2089-1) 48 60-130 [facility] Lptyritaxwf0085-13-42 07:04:00* Test Item Value Reference Range Interpretation Comments HDL Cholesterol (test code = 2085-9) 32 40-60 L [facility] DallasCholesterol/HDL Mjupv5183-98-79 07:04:00 * Test Item Value Reference Range Interpretation Comments Cholesterol/HDL Ratio (test code = 9830-1) 3.2 3.9-4.7 L [facility] DallasTriglycerides Cokft6308-75-58 07:04:00* Test Item Value Reference Range Interpretation Comments Triglycerides Level (test code = 2571-8) 114 0-149 [facility] DallasCholesterol Pnqit9880-71-94 07:04:00* Test Item Value Reference Range Interpretation Comments Cholesterol Level (test code = 2093-3) 103 0-199 Less than 200 mg/dL Low Ejmn200 - 239 mg/dL Borderline Jqlh668 m g/dl and greater High Risk [facility] DallasLDL Ndsrzulvwkh0515-60-24 07:04:00* Test Item Value Reference Range Interpretation Comments LDL Cholesterol (test code = 2089-1) 48 60-130 [facility] Xlzbirozagx1529-58-32 07:04:00* Test Item Value Reference Range Interpretation Comments HDL Cholesterol (test code = 2085-9) 32 40-60 L [facility] DallasCholesterol/HDL Orkrm8463-36-00 07:04:00 * Test Item Value Reference Range Interpretation Comments Cholesterol/HDL Ratio (test code = 9830-1) 3.2 3.9-4.7 L [facility] DallasTriglycerides Djeqi9783-12-69 07:04:00* Test Item Value Reference Range Interpretation Comments Triglycerides Level (test code = 2571-8) 114 0-149 [facility] DallasCholesterol Wcuql1500-93-99 07:04:00* Test Item Value Reference Range Interpretation Comments Cholesterol Level (test code = 2093-3) 103 0-199 Less than 200 mg/dL Low Atyr491 - 239 mg/dL Borderline Sfeb871 m g/dl and greater High Risk [facility] DallasLDL Sxovlomdrdq2557-65-23 07:04:00* Test Item Value Reference Range Interpretation Comments LDL Cholesterol (test code = 2089-1) 48 60-130 L [facility] DallasHDL Uyytvwaioxp9495-99-64 07:04:00* Test Item Value Reference Range Interpretation Comments HDL Cholesterol (test code = 2085-9) 32 40-60 L [facility] DallasCholesterol/HDL Mfhgm3772-36-92 07:04:00 * Test Item Value Reference Range Interpretation Comments Cholesterol/HDL Ratio (test code = 9830-1) 3.2 3.9-4.7 L [facility] DallasMagnesium Soeoq5982-03-12 06:58:00* Test Item Value Reference Range Interpretation Comments Magnesium Level (test code = 85947-8) 2.1 1.3-2.1 [facility] DallasMagnesium Iqtey0579-65-95 06:58:00* Test Item Value Reference Range Interpretation Comments Magnesium Level (test code = 83194-4) 2.1 1.3-2.1 [facility] DallasMagnesium Iildd5295-22-18 06:58:00* Test Item Value Reference Range Interpretation Comments Magnesium Level (test code = 55832-5) 2.1 1.3-2.1 [facility] DallasHemoglobin A1c Uuqfcgl4324-46-70 06:40:00 * Test Item Value Reference Range Interpretation Comments Hemoglobin A1c Percent (test code = Hemoglobin A1c Percent) 6.8 4.0-7.0 [facility] DallasHemoglobin A1c Qlgpuby6944-60-58 06:40:00 * Test Item Value Reference Range Interpretation Comments Hemoglobin A1c Percent (test code = Hemoglobin A1c Percent) 6.8 4.0-7.0 [facility] DallasHemoglobin A1c Aqyfzrz1276-91-84 06:40:00 * Test Item Value Reference Range Interpretation Comments Hemoglobin A1c Percent (test code = Hemoglobin A1c Percent) 6.8 4.0-7.0 [facility] DallasHemoglobin A1c Xklocmw3430-41-94 06:40:00 * Test Item Value Reference Range Interpretation Comments Hemoglobin A1c Percent (test code = Hemoglobin A1c Percent) 6.8 4.0-7.0 [facility] DallasHemoglobin A1c Uhhlhir1802-20-67 06:40:00 * Test Item Value Reference Range Interpretation Comments Hemoglobin A1c Percent (test code = Hemoglobin A1c Percent) 6.8 4.0-7.0 [facility] DallasHemoglobin A1c Hyyhgao4427-87-91 06:40:00 * Test Item Value Reference Range Interpretation Comments Hemoglobin A1c Percent (test code = Hemoglobin A1c Percent) 6.8 4.0-7.0 [facility] DallasHemoglobin A1c Xmsirhk0596-35-74 06:40:00 * Test Item Value Reference Range Interpretation Comments Hemoglobin A1c Percent (test code = Hemoglobin A1c Percent) 6.8 4.0-7.0 [facility] DallasHemoglobin A1c Iyudtgd9141-56-13 06:40:00 * Test Item Value Reference Range Interpretation Comments Hemoglobin A1c Percent (test code = Hemoglobin A1c Percent) 6.8 4.0-7.0 [facility] DallasWhite Blood Iuuzt0489-82-05 06:26:00* Test Item Value Reference Range Interpretation Comments White Blood Count (test code = 6690-2) 11.30 4.8-10.8 H [facility] DallasRed Blood Dorfi4355-44-05 06:26:00* Test Item Value Reference Range Interpretation Comments Red Blood Count (test code = 789-8) 4.58 4.3-5.7 [facility] DallasHemoglobin2019-02-08 06:26:00* Test Item Value Reference Range Interpretation Comments Hemoglobin (test code = 02502-9) 13.2 14.0-18.0 L [facility] DallasHematocrit2019-02-08 06:26:00* Test Item Value Reference Range Interpretation Comments Hematocrit (test code = 4544-3) 40.7 38.2-49.6 [facility] DallasMean Corpuscular Dwdifk6051-27-31 06:26:00* Test Item Value Reference Range Interpretation Comments Mean Corpuscular Volume (test code = 787-2) 88.9 81-99 [facility] DallasMean Corpuscular Desflxcdbq4189-25-94 06:26:00* Test Item Value Reference Range Interpretation Comments Mean Corpuscular Hemoglobin (test code = 785-6) 28.8 28-32 [facility] DallasMean Corpuscular Hemoglobin Concent 2018-07-26 06:26:00* Test Item Value Reference Range Interpretation Comments Mean Corpuscular Hemoglobin Concent (test code = 786-4) 32.4 31-35 [facility] DallasRed Cell Distribution Bxofm0828-04-47 06:26:00* Test Item Value Reference Range Interpretation Comments Red Cell Distribution Width (test code = 71641-4) 13.1 11.7 -14.4 [facility] DallasPlatelet Jrznm2946-41-96 06:26:00* Test Item Value Reference Range Interpretation Comments Platelet Count (test code = 777-3) 352 140-360 [facility] DallasNeutrophils (%) (Auto)2018-07-26 06:26:00 * Test Item Value Reference Range Interpretation Comments Neutrophils (%) (Auto) (test code = 34756-2) 61.3 38.7-80.0 [facility] DallasLymphocytes (%) (Auto)2018-07-26 06:26:00 * Test Item Value Reference Range Interpretation Comments Lymphocytes (%) (Auto) (test code = 736-9) 25.0 18.0-39.1 [facility] DallasMonocytes (%) (Auto)2018-07-26 06:26:00* Test Item Value Reference Range Interpretation Comments Monocytes (%) (Auto) (test code = 5905-5) 9.2 4.4-11.3 [facility] DallasEosinophils (%) (Auto)2018-07-26 06:26:00 * Test Item Value Reference Range Interpretation Comments Eosinophils (%) (Auto) (test code = 713-8) 2.5 0.0-6.0 [facility] DallasBasophils (%) (Auto)2018-07-26 06:26:00* Test Item Value Reference Range Interpretation Comments Basophils (%) (Auto) (test code = 706-2) 1.0 0.0-1.0 [facility] DallasIM GRANULOCYTES %2018-07-26 06:26:00* Test Item Value Reference Range Interpretation Comments IM GRANULOCYTES % (test code = IM GRANULOCYTES %) 1.0 0.0- 1.0 [facility] DallasNeutrophils # (Auto)2018-07-26 06:26:00* Test Item Value Reference Range Interpretation Comments Neutrophils # (Auto) (test code = 751-8) 6.9 2.1-6.9 [facility] DallasLymphocytes # (Auto)2018-07-26 06:26:00* Test Item Value Reference Range Interpretation Comments Lymphocytes # (Auto) (test code = 44091-5) 2.8 1.0-3.2 [facility] DallasMonocytes # (Auto)2018-07-26 06:26:00* Test Item Value Reference Range Interpretation Comments Monocytes # (Auto) (test code = 742-7) 1.0 0.2-0.8 H [facility] DallasEosinophils # (Auto)2018-07-26 06:26:00* Test Item Value Reference Range Interpretation Comments Eosinophils # (Auto) (test code = 711-2) 0.3 0.0-0.4 [facility] DallasBasophils # (Auto)2018-07-26 06:26:00* Test Item Value Reference Range Interpretation Comments Basophils # (Auto) (test code = 704-7) 0.1 0.0-0.1 [facility] DallasAbsolute Immature Granulocyte (auto 2018-07-26 06:26:00* Test Item Value Reference Range Interpretation Comments Absolute Immature Granulocyte (auto (ene t code = Absolute Immature Granulocyte (auto) 0.11 0-0.1 H [facility] DallasWhite Blood Aupyp1878-64-95 06:26:00* Test Item Value Reference Range Interpretation Comments White Blood Count (test code = 6690-2) 11.30 4.8-10.8 H [facility] DallasRed Blood Xejya7664-91-01 06:26:00* Test Item Value Reference Range Interpretation Comments Red Blood Count (test code = 789-8) 4.58 4.3-5.7 [facility] DallasHemoglobin2019-02-08 06:26:00* Test Item Value Reference Range Interpretation Comments Hemoglobin (test code = 49066-4) 13.2 14.0-18.0 L [facility] DallasHematocrit2019-02-08 06:26:00* Test Item Value Reference Range Interpretation Comments Hematocrit (test code = 4544-3) 40.7 38.2-49.6 [facility] DallasMean Corpuscular Ymcoet6403-11-92 06:26:00* Test Item Value Reference Range Interpretation Comments Mean Corpuscular Volume (test code = 787-2) 88.9 81-99 [facility] DallasMean Corpuscular Twkvuxiqaf7795-97-56 06:26:00* Test Item Value Reference Range Interpretation Comments Mean Corpuscular Hemoglobin (test code = 785-6) 28.8 28-32 [facility] DallasMean Corpuscular Hemoglobin Concent 2018-07-26 06:26:00* Test Item Value Reference Range Interpretation Comments Mean Corpuscular Hemoglobin Concent (test code = 786-4) 32.4 31-35 [facility] DallasRed Cell Distribution Xuclv3662-87-17 06:26:00* Test Item Value Reference Range Interpretation Comments Red Cell Distribution Width (test code = 57835-0) 13.1 11.7 -14.4 [facility] DallasPlatelet Epqhg5052-92-92 06:26:00* Test Item Value Reference Range Interpretation Comments Platelet Count (test code = 777-3) 352 140-360 [facility] DallasNeutrophils (%) (Auto)2018-07-26 06:26:00 * Test Item Value Reference Range Interpretation Comments Neutrophils (%) (Auto) (test code = 40354-5) 61.3 38.7-80.0 [facility] DallasLymphocytes (%) (Auto)2018-07-26 06:26:00 * Test Item Value Reference Range Interpretation Comments Lymphocytes (%) (Auto) (test code = 736-9) 25.0 18.0-39.1 [facility] DallasMonocytes (%) (Auto)2018-07-26 06:26:00* Test Item Value Reference Range Interpretation Comments Monocytes (%) (Auto) (test code = 5905-5) 9.2 4.4-11.3 [facility] DallasEosinophils (%) (Auto)2018-07-26 06:26:00 * Test Item Value Reference Range Interpretation Comments Eosinophils (%) (Auto) (test code = 713-8) 2.5 0.0-6.0 [facility] DallasBasophils (%) (Auto)2018-07-26 06:26:00* Test Item Value Reference Range Interpretation Comments Basophils (%) (Auto) (test code = 706-2) 1.0 0.0-1.0 [facility] DallasIM GRANULOCYTES %2018-07-26 06:26:00* Test Item Value Reference Range Interpretation Comments IM GRANULOCYTES % (test code = IM GRANULOCYTES %) 1.0 0.0- 1.0 [facility] DallasNeutrophils # (Auto)2018-07-26 06:26:00* Test Item Value Reference Range Interpretation Comments Neutrophils # (Auto) (test code = 751-8) 6.9 2.1-6.9 [facility] DallasLymphocytes # (Auto)2018-07-26 06:26:00* Test Item Value Reference Range Interpretation Comments Lymphocytes # (Auto) (test code = 65144-9) 2.8 1.0-3.2 [facility] DallasMonocytes # (Auto)2018-07-26 06:26:00* Test Item Value Reference Range Interpretation Comments Monocytes # (Auto) (test code = 742-7) 1.0 0.2-0.8 H [facility] DallasEosinophils # (Auto)2018-07-26 06:26:00* Test Item Value Reference Range Interpretation Comments Eosinophils # (Auto) (test code = 711-2) 0.3 0.0-0.4 [facility] DallasBasophils # (Auto)2018-07-26 06:26:00* Test Item Value Reference Range Interpretation Comments Basophils # (Auto) (test code = 704-7) 0.1 0.0-0.1 [facility] DallasAbsolute Immature Granulocyte (auto 2018-07-26 06:26:00* Test Item Value Reference Range Interpretation Comments Absolute Immature Granulocyte (auto (ene t code = Absolute Immature Granulocyte (auto) 0.11 0-0.1 H [facility] DallasCHEST SINGLE (PORTABLE)2018-07-25 15:39:00 [place] [address] Patient Name: VU ALVAREZ MR #: [id number] : 1950 Age/Sex: 68/M Req #: [id number] Adm Physician: JOHANNA CHRISTINE MD Ordered by: JOHANNA CHRISTINE MD Report #: [id number] Location: ICU Room/Bed: ICU [facility] Procedure: [id number] D X/CHEST SINGLE (PORTABLE) Exam Date: 07/25/18 Exam T kevyn: 1500 REPORT STATUS: Signed Examination: Single AP view of the chest. COMPARISON: None. INDICATION : Evaluate for pneumonia DISCUSSION: Lines/tubes: None. Leonides gs: The lungs are well inflated and clear. No pneumonia or pulmonary edema. Pleura: No pleural effusion or pneumothorax. Heart and mediastinum: The heart and the mediastinum are unremarkable. Bones and soft tissues: No ac [place] bony abnormalities. IMPRESSION: 1. No acute cardiopulmonary a bnormalities. Signed by: Dr. Pritesh Becerra M.D. on 07/25/2018 3:40 PM Dictated By: PRITESH BECERRA MD 39 Transcribed By: VIOLA on 07/25/181539 COPY TO: JOHANNA SURESH MD Creatine Votwun7673-76-54 09:25:00* Test Item Value Reference Range Interpretation Comments Creatine Kinase (test code = 2157-6) 82 30-200 [facility] DallasCreatine Kinase EB8344-48-38 09:25:00* Test Item Value Reference Range Interpretation Comments Creatine Kinase MB (test code = 85404-3) 1.10 0-5.0 [facility] M7828-65-05 09:25:00* Test Item Value Reference Range Interpretation Comments Troponin I (test code = CIW7128) 0.007 0-0.300 [facility] DallasCreatine Iuazlt8380-23-85 09:25:00* Test Item Value Reference Range Interpretation Comments Creatine Kinase (test code = 2157-6) 82 30-200 [facility] DallasCreatine Kinase BG8790-56-48 09:25:00* Test Item Value Reference Range Interpretation Comments Creatine Kinase MB (test code = 82661-2) 1.10 0-5.0 [facility] DallasTroponin G3139-17-86 09:25:00* Test Item Value Reference Range Interpretation Comments Troponin I (test code = AWT7999) 0.007 0-0.300 [facility] DallasCT CERVICAL SPINE YV6829-07-86 02:48:00 [facility] [address] [place] [address] Patient Name: VU ALVAREZ MR #: [id number] : 1950 Age/Sex: 68/M Req #: [id number] Adm Physician: Ordered by: EVANGELISTA HANNA MD Report #: [id number] Location: ER Room/Bed: Procedure: [id number] CT/CT CERVICAL SPINE WO Exam Date: 07/25/18 Exam Deshaun e: 0153 REPORT STATUS: Signed Hi story: Fall Comparison studies: None Technique: Axial images were obta ined through the cervical region.. Coronal and sagittal images reconstructed f rom the axial data. Dose modulation, iterative reconstruction, and/or weight b ased adjustment of the mA/kV was utilized to reduce the radiation dose to as low as reasonably achievable. Intravenous contrast: None Findings: Fractures: None. Soft tissues: No gross abnormalities. Atlantoaxial articulation: Mild degenerative changes. Alignment: Normal lordosis. No scolio sis. Cervicomedullary junction: No abnormalities. The foramen magnum is patent . Vertebrae: No infection or neoplasm. Degenerative changes: Mil dly degenerated discs from C3 to C7. Foraminal stenosis, mild right at C3-4, l eft at C6-C7 due to to mild uncovertebral arthrosis. No significant spinal ca nal stenosis IMPRESSION: 1. No acute abnormalities. 2. Cannot a dequately evaluate for ligament, spinal cord and or vascular abnormalities. 3. Mild degenerative changes. Signed by: Dr. Jeff Costa M.D. on 07/25/2018 2:50 AM Dictated By: JEFF COSTA MD, MD 9 Transcribed By: VIOLA on 07/25/18249 COPY TO: EVANGELISTA HANNA MD Urine ZZG7331-90-52 02:33:00* Test Item Value Reference Range Interpretation Comments Urine WBC (test code = 5821-4) >50 0-5 H [facility] DallasUrine BJI9574-58-84 02:33:00* Test Item Value Reference Range Interpretation Comments Urine RBC (test code = 45480-5) 6-10 0-5 H [facility] DallasUrine Dyjeqbsa8814-45-17 02:33:00* Test Item Value Reference Range Interpretation Comments Urine Bacteria (test code = 33433-4) MANY NONE H [facility] DallasUrine Epithelial Gxjdx7092-22-95 02:33:00 * Test Item Value Reference Range Interpretation Comments Urine Epithelial Cells (test code = 54012-7) FEW NONE [facility] DallasU[facility] Transitional Epithelial Cells 2018-07-25 02:33:00* Test Item Value Reference Range Interpretation Comments Urine Transitional Epithelial Cells (test code = 8249-5) MODERATE NONE [facility] DallasU[facility] Transitional Epithelial Cells 2018-07-25 02:33:00* Test Item Value Reference Range Interpretation Comments Urine Transitional Epithelial Cells (test code = 8249-5) MODERATE NONE [facility] DallasU[facility] Transitional Epithelial Cells 2018-07-25 02:33:00* Test Item Value Reference Range Interpretation Comments Urine Transitional Epithelial Cells (test code = 8249-5) MODERATE NONE [facility] DallasU[facility] Transitional Epithelial Cells 2018-07-25 02:33:00* Test Item Value Reference Range Interpretation Comments Urine Transitional Epithelial Cells (test code = 8249-5) MODERATE NONE [facility] DallasUrine Transitional Epithelial Cells 2018-07-25 02:33:00* Test Item Value Reference Range Interpretation Comments Urine Transitional Epithelial Cells (test code = 8249-5) MODERATE NONE [facility] DallasU[facility] Transitional Epithelial Cells 2018-07-25 02:33:00* Test Item Value Reference Range Interpretation Comments Urine Transitional Epithelial Cells (test code = 8249-5) MODERATE NONE [facility] DallasU[facility] Transitional Epithelial Cells 2018-07-25 02:33:00* Test Item Value Reference Range Interpretation Comments Urine Transitional Epithelial Cells (test code = 8249-5) MODERATE NONE [facility] 2018-07-25 02:33:00* Test Item Value Reference Range Interpretation Comments Urine Transitional Epithelial Cells (test code = 8249-5) MODERATE NONE [facility]2018-07-25 02:08:00 [facility] [address] [place] [address] Patient Name: VU ALVAREZ MR #: [id number] : 1950 Age/Sex: 68/M Req #: [id number] Adm Physician: Ordered by: EVANGELISTA HANNA MD Report #: [id number] Location: ER Room/Bed: Procedure: [id number] DX/CHEST SINGLE (PORTABLE) Exam Date: 07/25/18 Exam Time: 0157 REPORT STATUS: Signed EXAM: XR CHEST 1 VIEW DATE: 07/25/2018 1:10 AM INDICATION: Hypoglycemia /fall COMPARISON: None FINDINGS: Lines and Tubes: None Hear t and Mediastinum: No acute cardiomediastinal findings. Lungs and Pleura: P atchy opacity left lung base. Elevation right hemidiaphragm. Bones and Soft Tissues: No acute findings. IMPRESSION: 1. Patchy opacity left lung ba se, poorly evaluated due to underpenetration. Atelectasis versus pneumonia. Signed by: Dr. Gregory Quinones MD on 07/25/2018 2:09 AM Dictated By: GREGORY QUINONES MD 8 Hernandez scribed By: VIOLA on 07/25/18208 COPY TO: EVANGELISTA HANNA MD CT BRAIN [id number] 02:03:00 [facility] [address] [place] [address] Patient Name: VU ALVAREZ MR #: [id number] : 1950 Age/Sex: 68/M Req #: [id number] Adm Physician: Ordered by: EVANGELISTA HANNA MD Report #: [id number] Location: ER Room/Bed: Procedure: [id number] CT/CT BRAIN WO Exam Date: 07/25/18 Exam Time: 0153 REPORT STATUS: Signed History:Fal l, loc Comparison studies: None Technique: Axial images were obtai giles from the skull base to the vertex. Coronal and sagittal images reconstruct ed from the axial data. Dose modulation, iterative reconstruction, and/or weig ht based adjustment of the mA/kV was utilized to reduce the radiation dose to as low as reasonably achievable. Intravenous contrast: None Findin gs: Scalp/skull: No abnormalities. Extra-axial spaces: No masses . No fluid collections. Brain sulci: Mildly prominent. Ventricles: Moder ately dilated but no acute hydrocephalus. Parenchyma: Ill defined conflu ent hypodensities in the supratentorial white matter are small vessel ischemic changes. No masses, hemorrhage, acute or chronic cortical vascular insults. Sellar/suprasellar region: No abnormalities. Craniocervical junction: Patent foramen magnum. No Chiari one malformation. Incidental findings: Athe rosclerotic calcifications in the carotid siphons and vertebral arteries. I mpression: 1. No acute abnormalities. 2. Moderate nonspecific dilatatio n of the ventricles. No previous studies available for comparison. It is presu med to be chronic and compensated as the cerebral sulci are patent. The gabby n fissures are not dilated to suggest normal pressure hydrocephalus. Office Lead tory findings: 1. Mild generalized volume loss. 2. Moderate supratentorial white matter small vessel ischemic changes. Signed by: Dr. Jeff santos M.D. on 07/25/2018 2:08 AM Dictated By: JEFF COSTA MD, MD 7 Transcrib ed By: VIOLA on 07/25/18207 COPY TO: EVANGELISTA HANNA MD Urine Ygyre2959-29-74 01:49:00* Test Item Value Reference Range Interpretation Comments Urine Color (test code = 5778-6) YELLOW YELLOW [facility] Kntilyi2077-88-63 01:49:00* Test Item Value Reference Range Interpretation Comments Urine Clarity (test code = 96629-4) CLOUDY CLEAR [facility] Kzgpwho8306-02-85 01:49:00 * Test Item Value Reference Range Interpretation Comments Urine Specific [place] (test code = 5811-5) 1.025 1.010-1.02 5 [facility] wO6635-24-10 01:49:00* Test Item Value Reference Range Interpretation Comments Urine pH (test code = 76980-0) 6 5-7 [facility] Leukocyte Wmhzsruh2637-87-86 01:49:00* Test Item Value Reference Range Interpretation Comments Urine Leukocyte Esterase (test code = 5799-2) 1+ NEGATIVE [facility] Wymqusx2380-66-49 01:49:00* Test Item Value Reference Range Interpretation Comments Urine Nitrite (test code = 40055-3) POSITIVE NEGATIVE [facility] Pathnnx7084-64-72 01:49:00* Test Item Value Reference Range Interpretation Comments Urine Protein (test code = 5804-0) TRACE NEGATIVE [facility] Glucose (UA)2018-07-25 01:49:00* Test Item Value Reference Range Interpretation Comments Urine Glucose (UA) (test code = 2349-9) NEGATIVE NEGATIVE [facility] DallasU[facility] Bercuxo6243-70-26 01:49:00* Test Item Value Reference Range Interpretation Comments Urine Ketones (test code = 56458-6) NEGATIVE NEGATIVE [facility] Dallas[facility] Jcjuouieqgup4268-03-44 01:49:00* Test Item Value Reference Range Interpretation Comments Urine Urobilinogen (test code = 43589-7) 0.2 0.2-1 [facility] Dallas[facility] Vouqekszn6426-86-31 01:49:00* Test Item Value Reference Range Interpretation Comments Urine Bilirubin (test code = 1978-6) NEGATIVE NEGATIVE [facility] DallasU[facility] Fryyy6039-68-79 01:49:00* Test Item Value Reference Range Interpretation Comments Urine Blood (test code = 61559-7) 1+ NEGATIVE H [facility] DallasLactic Acid Wshlw8787-74-07 01:45:00* Test Item Value Reference Range Interpretation Comments Lactic Acid Level (test code = Lactic Acid Level) 18.1 4.5- 19.8 [facility] DallasLactic Acid Boooq0080-26-80 01:45:00* Test Item Value Reference Range Interpretation Comments Lactic Acid Level (test code = Lactic Acid Level) 18.1 4.5- 19.8 [facility] DallasELECTROLYTES2018-10-16 18:56:0016.0 [facility] OdtpiecTSHJGEFXOYQV6361-67-51 18:56:0042.0[facility] HermannELECTROLYTES 2018-04-02 18:56:0096[facility] BundndrOZVTPSGJZNMP6835-84-83 18:56:000.7[facility] XboyitnMLVOWNTZWCAX7975-10-49 18:56:0017[facility] UvldirgUOLSBTNBNQZG3200-94-00 18:56:0014.3[facility] PnbhnumBTNBWJPTMHPT8014-43-35 18:56:001.18[facility] [place] TVTRHTVIKNLG8085-05-82 18:56:57732Idxrlxoa SautdpfOSMISJZJCZLF9942-34-76 18:56:004.2[facility] IebrteaSLFAJDNKKSVR7786-58-68 18:56:17266Usukreul Jose VIISUTQJBUEA5758-63-03 18:56:0026[facility] KfrvecvXFZANWYDWCTS3763-08-18 18:56:00 101[facility] CsjspouPHGXGFINIX1564-03-45 10:18:0022.2[facility] HermannHEMATOLOGY 2017-11-21 10:18:0033.9[facility] RmtrtpvNTHUBRFFRD7819-10-28 10:18:008.3[facility] HdidlomJDBDQLAOAL0697-04-25 10:18:0013.1[facility] CbdqrraWJOZKUYAVF9063-99-89 10:18:93216Cxwejzdt FihqzanEQGEERJVUJ4222-13-21 10:18:0087.2[facility] Jose HOKJAIGWSF4342-21-91 10:18:004.03[facility] IidmvcmJRTGNQKSJY0039-98-18 10:18:00 11.9[facility] DewtcduWGUSFHBATE6174-87-37 10:18:00* Test Item Value Reference Range Interpretation Comments MCH (test code = MCH) 29.5 pg 27.0-31.0 [facility] JakazxgTILYOGDSOC5703-33-74 10:18:0035.1[facility] HermannHEMATOLOGY 2017-11-21 10:18:000.1[facility] YqpqzscKHJHZJDSIF1946-25-18 10:18:001.2[facility] WejlibcBLCOEIHNHF9243-00-02 10:18:009.3[facility] JvllwaoZVJDVQHFOC2869-06-99 10:18:0019.0[facility] VpupshwAMOTVROTEN9461-77-56 10:18:005.3[facility] Jose QDMCWADMXX9910-80-12 10:18:0085.3[facility] JqsnckkOAEDEEKIBV6253-20-32 10:18:00 Normal (11/21/17 5:18 AM)[facility] OqgllvuPMTZFMCOJD5227-99-50 10:18:00Normal (11/21/17 5:18 AM)[facility] EacbucwFNNJLACHHH3770-71-67 10:18:002.1[facility] [place] CHEM GTXCK1867-78-30 09:59:0070[facility] HermannCHEM OMXMC0716-92-90 09:59:0024 [facility]annCHEM PGXBD8298-39-71 09:59:008.4[facility] HermannCHEM PANEL 2017-11-20 09:59:54665Gnysdhhu HermannCHEM OVHUX5543-14-86 09:59:004.5[facility] HermannCHEM NBLPY5851-13-92 09:59:95849Sgqbdgsr HermannCHEM OVKQH2156-62-70 09:59:0019[facility] HermannCHEM GWQWY3355-64-57 09:59:001.07[facility]annCHEM XFDPF2945-72-11 09:59:36802Huixvzog HermannCHEM BNGHS1093-93-17 09:59:0013.5 [facility] NuhscmgLAXGFGPIHS8385-49-13 09:59:0033.4[facility]annHEMATOLOGY 2017-11-20 09:59:0013.2[facility] OrlzktjNGNTYTDLBJ7530-45-11 09:59:0012.7[facility] UwbjnpxMTDBILEZAG6897-76-97 09:59:0038.0[facility] PlgdhnfHCINVANIBC7961-38-41 09:59:0086.4[facility] ZbxcdfiFSQOJFPBSA0879-84-82 09:59:00* Test Item Value Reference Range Interpretation Comments MCH (test code = MCH) 28.9 pg 27.0-31.0 [facility] NefmolpOTBSUYONZT0281-28-58 09:59:0020.7[facility]annHEMATOLOGY 2017-11-20 09:59:004.40[facility] FqhdhdiXHQRPCMGMA6523-85-65 09:59:82381Rvynmvtv CytzcmyQNMJUFBVND6985-74-74 09:59:007.9[facility] GjjncxzXFRHATZHAA7874-28-48 09:59:0085.4[facility] RtlhqheZVPVWZWVQX5941-80-15 09:59:006.2[facility] Jose SLMAKKRVAK9515-93-57 09:59:008.4[facility] KeiqobuYPGTRCYTPR2836-03-77 09:59:001.7 [facility] BqmbptyEFAECBJDYQ8926-98-71 09:59:001.3[facility] HermannHEMATOLOGY 2017-11-20 09:59:0017.7[facility] HermannBLOOD BANK HUJOJLY9290-24-16 12:28:00 Negative (11/19/17 7:28 AM)[facility]annBLOOD BANK IDXMJDY1006-08-91 13:15:00 Negative (11/07/17 8:15 AM)[facility] HermannCHEM IJYGF4721-17-24 13:15:00* Test Item Value Reference Range Interpretation Comments B/C Ratio (test code = B/C Ratio) 17 1 6-25 [facility]annCHEM SNQPL0751-37-90 13:15:0016.8[facility] HermannCHEM PANEL 2017-11-07 13:15:004.2[facility] HermannCHEM IWKOZ2782-52-92 13:15:00* Test Item Value Reference Range Interpretation Comments A/G Ratio (test code = A/G Ratio) 0.8 1 0.7-1.6 [facility]annCHEM XVUGC3664-73-09 13:15:0073[facility] HermannCHEM PANEL 2017-11-07 13:15:007.4[facility] HermannCHEM XMPQH9853-16-01 13:15:44627Tiyimjls HermannCHEM NPGGC7487-12-96 13:15:000.2[facility] HermannCHEM SQIGK6612-20-16 13:15:0046[facility] HermannCHEM HRULC7578-87-50 13:15:003.2[facility] HermannCHEM LWUTY0422-57-36 13:15:0033[facility] HermannCHEM WROUL3730-04-06 13:15:48721 [facility]annCHEM RZHWJ9997-72-96 13:15:003.8[facility] HermannCHEM PANEL 2017-11-07 13:15:00508Gmyvkppn HermannCHEM WAQJH0467-48-65 13:15:0023[facility] HermannCHEM FICVH9420-46-84 13:15:05483Ndzoyqwe HermannCHEM LDIKE4565-30-30 13:15:0018[facility] HermannCHEM MLWBJ0155-79-43 13:15:001.04[facility] HermannCHEM BIBSU4375-55-11 13:15:008.6[facility] WnbrewkSEBBNISBBD8467-72-69 13:15:008.3 [facility] KhtrxkfVNGDXMIGVR4212-01-36 13:15:01740Pislcwgj HermannHEMATOLOGY 2017-11-07 13:15:0041.2[facility] BhhavjtTWCJSWOMVF2958-24-61 13:15:0013.7[facility] IgmhbnxMIRNNKLUVA5444-14-66 13:15:004.68[facility] JjgslykHVQSUZEQXL4224-47-99 13:15:009.9[facility] HrjbcwiPZXQCMAOLC7295-06-56 13:15:0033.3[facility] Jose CXWZZNVPHR3385-76-28 13:15:00* Test Item Value Reference Range Interpretation Comments MCH (test code = MCH) 29.3 pg 27.0-31.0 [facility] IidbrhvBJFBKQURHI2395-46-25 13:15:0088.0[facility] HermannHEMATOLOGY 2017-11-07 13:15:0013.2[facility] RomjbqaRDHHSTDQWF4022-88-05 13:15:0010.7[facility] AalooeiUNBTYJJHWN0297-66-13 13:15:002.1[facility] ZdzvguzMFKQKUHSYY9295-59-48 13:15:0062.1[facility] OgfpgftNVKLJQZWXC4361-41-61 13:15:001.1[facility] Jose GRUHSNXLMX7729-33-01 13:15:000.1[facility] TrgdaijPLUEQRKQAK5026-12-21 13:15:000.2 [facility] UqinuidKSHSGGTZZS2996-42-10 13:15:006.1[facility] HermannHEMATOLOGY 2017-11-07 13:15:000.6[facility] AxvwaynTUTMMHHGPJ9421-99-30 13:15:002.4[facility] HfkyoaaATSCMPXQTJ4630-69-57 13:15:0024.5[facility] KajtcyqNMMOZTCIKL3441-34-09 13:15:00* Test Item Value Reference Range Interpretation Comments PROTIME (test code = PROTIME) 12.6 s 12.0-14.7 [facility]SrnjzrvCHQJNFAGLM7998-95-69 13:15:00* Test Item Value Reference Range Interpretation Comments aPTT (test code = aPTT) 30.3 s 22.9-35.8 [facility]cosOjmtazrTUIHTNMSCI7889-51-91 13:15:00* Test Item Value Reference Range Interpretation Comments INR (test code = INR) 0.94 1 0.85-1.17 [facility] HermannSPECIAL OAJZZYKJN4543-84-27 13:15:006.9[facility] HermannCHEM TAHVV8498-81-73 17:34:0076[facility] HermannCHEM BJHOS2802-23-91 17:34:0016.0 [facility]annCHEM YQEFU4770-25-70 17:34:0015.3[facility] HermannCHEM PANEL 2017-10-24 17:34:0045.0[facility] HermannCHEM EUADM1792-92-39 17:34:001.18[facility] HermannCHEM JMWXH0711-45-03 17:34:001.0[facility] HermannCHEM QWMAA3232-66-49 17:34:31806Xlstipgs HermannCHEM CDKML5989-40-59 17:34:0026[facility] HermannCHEM XXKGX8880-59-11 17:34:0028[facility] HermannCHEM ODNQM8693-91-37 17:34:54934 [facility]annCHEM NLPNP2246-87-30 17:34:004.8[facility] HermannCHEM PANEL 2017-10-24 17:34:98960Hxyqtbob [place]
--- NOTE | 2020-01-28 21:38 | Emergency Department Note ---
History of Present Illnes History of Present Illness Chief Complaint: General Medicine Complaints History of Present Illness This is a 69 year old male Chief Complaint Comment PATIENT FOR THE PAST TWO DAYS HAS BEEN EXPERIENCING GENERALIZED MUSCLE ACHES. DENIES ANY OTHER COMPLAINT. NO CHEST PAIN OR JAW PAIN. DENIES BEING EXPOSED TO COVID POSITIVE PEOPLE. PATIENT HAS A SUPRAPUBIC CATH. Patient states his wanted him to get check out. 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 Any updates have been documented here. 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 SUPRAPUBIC CATH Social History Physically hurt or threatened: No Other Last Tetanus: UNKNOWN Review of Systems Review of Systems Constitutional: Reports no symptoms EENTM: Reports no symptoms Cardiovascular: Reports no symptoms Respiratory: Reports no symptoms Gastrointestinal: Reports no symptoms Genitourinary: Reports no symptoms Musculoskeletal: Reports as per HPI, Reports joint pain (Shoulder, leg bilateral), Reports muscle pain Integumentary: Reports no symptoms Neurological: Reports no symptoms Psychological: Reports no symptoms Endocrine: Reports no symptoms Hematological/Lymphatic: Reports no symptoms Physical Exam Related Data Allergies: Coded Allergies: carisoprodol (Verified Allergy, Unknown, 07/25/18) lincomycin (Verified Allergy, Unknown, 07/25/18) Triage Vital Signs Vital Signs Date Time Temp Pulse Resp B/P (MAP) Pulse Ox O2 Delivery O2 Flow Rate FiO2 01/28/20 21:16 99.9 74 20 139/77 95 Room Air Vital signs reviewed: Yes Physical Exam CONSTITUTIONAL Constitutional: Present well-developed, Present well-nourished HENT HENT: Present normocephalic, Present atraumatic, Present oropharynx clear/mo ist, Present nose normal HENT L/R: Present left ext ear normal, Present right ext ear normal EYES Eyes: Reports PERRL, Reports conjunctivae normal NECK Neck: Present ROM normal PULMONARY Pulmonary: Present effort normal, Present breath sounds normal CARDIOVASCULAR Cardiovascular: Present regular rhythm, Present heart sounds normal, Present capillary refill normal, Present normal rate GASTROINTESTINAL Abdominal: Present soft, Present nontender, Present bowel sounds normal GENITOURINARY Genitourinary: Present exam deferred, Present other (Suprapubic cath in place, well appearing) SKIN Skin: Present warm, Present dry MUSCULOSKELETAL Musculoskeletal: Present ROM normal NEUROLOGICAL Neurological: Present alert, Present oriented x 3, Present no gross motor or sensory deficits PSYCHOLOGICAL Psychological: Present mood/affect normal, Present judgement normal Assessment & Plan Medical Decision Making MDM 69-year-old male presents to the emergency department for diffuse body aches. He recently had his suprapubic catheter replaced in urology clinic. Denies any other symptoms at this time. Examination shows an overall well-appearing male in no acute distress, vital signs stable and within acceptable limits. Workup shows urinary tract infection with an elevated white blood cell. He was given 1 g of Rocephin in the emergency department and will be discharged home on Keflex. I discussed in detail with patient and his that he will need to follow-up with his urologist, Dr. Rudolph tomorrow. Patient and state agree with the p robert and he is appropriate for discharge. Part of this note was dictated with Fabiola and is subject to recognition errors. Reassessment Reassessment time: 21:28 Reassessment NAD, well appearing Assessment & Plan Final Impression: (1) UTI (urinary tract infection) Depart Disposition: HOME, SELF-CARE Last Vital Signs Date Time Temp Pulse Resp B/P (MAP) Pulse Ox O2 Delivery O2 Flow Rate FiO2 01/28/20 21:16 99.9 74 20 139/77 95 Room Air Home Meds Active Scripts Nifedipine (NIFEDIPINE ER) 30 Mg Tab.er.24, 30 MG PO BID for 30 Days Prov:JAKE GUTIERREZ NP 05/08/19 Fluconazole (DIFLUCAN) 100 Mg Tablet, 200 MG PO DAILY for 7 Days Prov:JAKE GUTIERREZ NP 05/08/19 Reported Medications Sitagliptin Phosphate (JANUVIA) 100 Mg Tablet, 100 MG PO DAILY, #30 TAB 01/23/19 Duloxetine Hcl (CYMBALTA) 30 Mg Capsule.dr, 60 MG PO DAILY, #30 CAP 01/23/19 Propranolol Hcl (PROPRANOLOL HCL) 40 Mg Tablet, 60 MG PO BID, #60 TAB 01/23/19 Flecainide Acetate (FLECAINIDE ACETATE) 100 Mg Tablet, 100 MG PO BID, #60 TAB 11/01/14 Metformin Hcl (METFORMIN HCL) 500 Mg Tablet, 1000 MG PO BID, #60 TAB 11/01/14 HILARIO TONY MD Jan 28, 2020 21:37
[2020-01-28 21:46] LABS: ALANINE AMINOTRANSFERASE 30 IU/L (0-55); ALBUMIN 3.6 g/dL (3.5-5.0); ALBUMIN/GLOBULIN RATIO 0.9 (0.8-2.0); ALKALINE PHOSPHATASE 89 IU/L (40-150); ANION GAP 13.4 mmol/L (8-16); BLOOD UREA NITROGEN 17 mg/dL (7-26); BUN/CREATININE RATIO 16 (6-25); CALCIUM 9.5 mg/dL (8.4-10.2); CARBON DIOXIDE 24 mmol/L (22-29); CHLORIDE 99 mmol/L (98-107); CREATININE, SERUM 1.05 mg/dL (0.72-1.25); EST GLOMERULAR FILTRATION RATE > 60 ML/MIN (60-); GLUCOSE 190 mg/dL (74-118); POTASSIUM 4.4 mmol/L (3.5-5.1); SODIUM 132 mmol/L (136-145)
[2020-01-28 21:55] LABS: BILIRUBIN,URINE NEGATIVE (NEGATIVE); CLARITY,URINE CLOUDY (CLEAR); COLOR,URINE YELLOW (YELLOW); KETONES,URINE NEGATIVE (NEGATIVE); LEUKOCYTE ESTERASE ,URINE SMALL (NEGATIVE); NITRITE,URINE POSITIVE (NEGATIVE); PROTEIN,URINE DIPSTICK 2+ (NEGATIVE); URINE UROBILINOGEN 0.2 mg/dL (0.2 - 1)
[2020-01-28 22:02] LABS: BACTERIA,URINE MANY /HPF; EPITHELIAL CELLS,URINE FEW /LPF; RBC,URINE 21-50 /HPF (0-5); WBC,URINE (MAN) >50 /HPF (0-5)
[2020-01-28] MEDS ORDERED: CEFTRIAXONE SOD 1 GM/NS 50 ML 50 ML IV ONE (22:15)
--- NOTE | 2020-01-28 22:46 | Diagnostic Imaging Report ---
EXAMINATION: CHEST SINGLE (NOT PORTABLE) INDICATION: ^Y ^Bilateral shoulder pain, diffuse pain ^[id number] ^[id number] COMPARISON: 08/24/2019 FINDINGS: AP view TUBES and LINES: A catheter along the left neck, probably external to patient. LUNGS: Limited by body habitus and low lung volumes. Left basilar haziness. PLEURA: No significant pleural effusion or pneumothorax. HEART AND MEDIASTINUM: The cardiomediastinal silhouette is enlarged, accentuated by technique and low lung volumes.. BONES AND SOFT TISSUES: No acute osseous lesion. Soft tissues are unremarkable. UPPER ABDOMEN: No free air under the diaphragm. IMPRESSION: Very limited study as above. Left basilar haziness, could be due to overlying soft tissue attenuation, atelectasis, or developing pneumonia in the appropriate clinical context. Signed by: Dr. Denis Rocha MD on 01/28/2020 10:42 PM
[2020-01-28] MEDS ORDERED: KEFLEX500 MG PO (22:53)
[2020-01-28] MEDS ORDERED: DOXYCYCLINE HY100 MG PO (22:54)
[2020-01-28 22:55] VITALS: BP 142/69
== END 2020-01-28 23:00 | disposition home or self-care (01) ==
LOC: ER 20:35
DX: N39.0 Urinary tract infection, site not specified (principal); E11.65 Type 2 diabetes mellitus with hyperglycemia; I10 Essential (primary) hypertension; I25.10 Atherosclerotic heart disease of native coronary artery without angina pectoris
CPT/HCPCS: 36415; 71045; 80053; 81001; 82550; 83880; 84484; 85025; 93005; 99284; J0696

== ENCOUNTER 2020-07-17 20:12 | Emergency (ER) | payer MEDICARE ==
[~2020-07-17] VITALS: Ht 177.8 cm; Wt 102.1 kg
[~2020-07-17 20:12] MED LIST changes: +DOXYCYCLINE HY100 MG PO; +KEFLEX500 MG PO
== END 2020-07-17 22:50 | disposition home or self-care (01) ==
LOC: ER 20:30
DX: R13.10 Dysphagia, unspecified (principal); J18.9 Pneumonia, unspecified organism; I10 Essential (primary) hypertension; E11.9 Type 2 diabetes mellitus without complications; I25.10 Atherosclerotic heart disease of native coronary artery without angina pectoris; Z88.1 Allergy status to other antibiotic agents; Z88.8 Allergy status to other drugs, medicaments and biological substances; Z87.440 Personal history of urinary (tract) infections
CPT/HCPCS: 70490; 71250; 99283

== ENCOUNTER 2020-10-21 13:24 | Emergency (ER) | payer MEDICARE ==
[~2020-10-21] VITALS: Ht 177.8 cm; Wt 99.3 kg
[2020-10-21 14:50] LABS: BASOPHILS # (AUTO) 0.1 (0.0-0.1); BASOPHILS % 0.9 % (0.0-1.0); EOSINOPHILS # (AUTO) 0.4 (0.0-0.4); EOSINOPHILS % 2.9 % (0.0-6.0); HEMATOCRIT 43.8 % (38.2-49.6); HEMOGLOBIN 14.8 g/dL (14.0-18.0); LYMPHOCYTES % 16.7 % (18.0-39.1); MEAN CORPUSCULAR HEMOGLOBIN 31.2 pg (28-32); MEAN CORPUSCULAR HGB CONC 33.8 g/dL (31-35); MEAN CORPUSCULAR VOLUME 92.4 fL (81-99); MONOCYTES % 8.4 % (4.4-11.3); NEUTROPHILS # (AUTO) 8.4 (2.1-6.9); NEUTROPHILS % 70.4 % (38.7-80.0); PLATELET COUNT 256 x10e3/uL (140-360); RED BLOOD COUNT 4.74 x10e6/uL (4.3-5.7); RED CELL DISTRIBUTION WIDTH 12.4 % (11.7-14.4)
[2020-10-21 15:10] LABS: ALANINE AMINOTRANSFERASE 43 IU/L (0-55); ALBUMIN 3.8 g/dL (3.5-5.0); ALBUMIN/GLOBULIN RATIO 0.9 (0.8-2.0); ALKALINE PHOSPHATASE 86 IU/L (40-150); ANION GAP 15.9 mmol/L (8-16); BLOOD UREA NITROGEN 16 mg/dL (7-26); BUN/CREATININE RATIO 16 (6-25); CALCIUM 9.1 mg/dL (8.4-10.2); CARBON DIOXIDE 24 mmol/L (22-29); CHLORIDE 100 mmol/L (98-107); EST GLOMERULAR FILTRATION RATE > 60 ML/MIN (60-); GLUCOSE 246 mg/dL (74-118); POTASSIUM 3.9 mmol/L (3.5-5.1); SODIUM 136 mmol/L (136-145)
[2020-10-21] MEDS ORDERED: DOXYCYCLINE HY100 MG PO (15:22)
== END 2020-10-21 16:18 | disposition home or self-care (01) ==
LOC: ER 14:00
DX: R05 Cough (principal); R06.02 Shortness of breath; R07.89 Other chest pain; E11.65 Type 2 diabetes mellitus with hyperglycemia; F03.90 Unspecified dementia, unspecified severity, without behavioral disturbance, psychotic disturbance, mood disturbance, and anxiety; I10 Essential (primary) hypertension; I25.10 Atherosclerotic heart disease of native coronary artery without angina pectoris
CPT/HCPCS: 36415; 71045; 80053; 83880; 84484; 85025; 93005; 99283

== ENCOUNTER 2022-01-15 11:14 | Inpatient (IN) | payer MEDICARE ==
[~2022-01-15] VITALS: Ht 182.9 cm; Wt 99.3 kg
[2022-01-15] MEDS ORDERED: Morphine 2mg Syringe 2 MG/ML SYR IV STA (11:41)
[2022-01-15] MEDS ORDERED: ONDANSETRON HCL INJ 2MG/ML 2ML 2 MG/ML VIAL IV STA (11:41)
[2022-01-15 12:47] LABS: BASOPHILS # (AUTO) 0.1 (0.0-0.1); BASOPHILS % 0.8 % (0.0-1.0); EOSINOPHILS # (AUTO) 0.1 (0.0-0.4); EOSINOPHILS % 1.1 % (0.0-6.0); HEMATOCRIT 41.8 % (38.2-49.6); LYMPHOCYTES # (AUTO) 2.2 (1.0-3.2); LYMPHOCYTES % 17.3 % (18.0-39.1); MEAN CORPUSCULAR HEMOGLOBIN 29.9 pg (28-32); MEAN CORPUSCULAR HGB CONC 33.5 g/dL (31-35); MEAN CORPUSCULAR VOLUME 89.1 fL (81-99); MONOCYTES # (AUTO) 0.8 (0.2-0.8); MONOCYTES % 6.1 % (4.4-11.3); NEUTROPHILS # (AUTO) 9.6 (2.1-6.9); NEUTROPHILS % 74.2 % (38.7-80.0); PLATELET COUNT 301 x10e3/uL (140-360); RED BLOOD COUNT 4.69 x10e6/uL (4.3-5.7); RED CELL DISTRIBUTION WIDTH 12.5 % (11.7-14.4)
[2022-01-15 12:58] LABS: INR 0.93; PROTHROMBIN TIME 13.3 seconds (11.9-14.5)
[2022-01-15 13:11] LABS: ALANINE AMINOTRANSFERASE 30 IU/L (0-55); ALBUMIN 3.5 g/dL (3.5-5.0); ALBUMIN/GLOBULIN RATIO 0.7 (0.8-2.0); ALKALINE PHOSPHATASE 84 IU/L (40-150); ANION GAP 14.4 mmol/L (8-16); BLOOD UREA NITROGEN 19 mg/dL (7-26); BUN/CREATININE RATIO 19 (6-25); CALCIUM 8.9 mg/dL (8.4-10.2); CARBON DIOXIDE 25 mmol/L (22-29); CHLORIDE 100 mmol/L (98-107); CREATINE KINASE 106 IU/L (30-200); CREATININE, SERUM 0.98 mg/dL (0.72-1.25); GLUCOSE 216 mg/dL (74-118); LIPASE 93 U/L (8-78); MAGNESIUM 1.5 MG/DL (1.3-2.1); POTASSIUM 4.4 mmol/L (3.5-5.1); SODIUM 135 mmol/L (136-145)
[2022-01-15] MEDS ORDERED: IOPAMIDOL 370 MG/ML 100 ML INFUS..BTL INJ ONE (13:37)
[2022-01-15] MEDS ORDERED: DEXTROSE 50% SYRINGE 50 ML IV PRN (16:00)
[2022-01-15] MEDS ORDERED: Morphine 2mg Syringe 2 MG/ML SYR IV PRN (16:00)
[2022-01-15] MEDS ORDERED: ONDANSETRON HCL INJ 2MG/ML 2ML 2 MG/ML VIAL IV PRN (16:00)
[2022-01-15] MEDS: SODIUM CHLORIDE 0.9% 1000ML 1,000 ML IV SCH (16:33)
[2022-01-15 17:32] VITALS: BP 129/59
[2022-01-15] MEDS: INSULIN LISPRO 100 UNIT/1 ML 3ML VIAL SQ SCH ×2 (17:57→21:46)
[2022-01-15 18:05] VITALS: BP 129/59
[2022-01-15 18:13] VITALS: BP 129/59
[2022-01-15] MEDS ORDERED: CRESTOR10 MG PO (18:45)
[2022-01-15] MEDS ORDERED: ARICEPT5 MG PO (18:45)
[2022-01-15] MEDS ORDERED: NEXIUM40 MG PO (18:45)
[2022-01-15] MEDS ORDERED: FLOMAX0.4 MG PO (18:45)
[2022-01-15] MEDS ORDERED: AMARYL2 MG PO (18:45)
[2022-01-15] MEDS ORDERED: AMLODIPINE BES2.5 MG PO (18:45)
[2022-01-15 20:00] VITALS: BP 121/54
[2022-01-15 21:00] VITALS: BP 121/54
[2022-01-16] VITALS (9 sets, daily range): BP systolic 121–162; BP diastolic 48–71
[2022-01-16] MEDS: SODIUM CHLORIDE 0.9% 1000ML 1,000 ML IV SCH (03:03)
[2022-01-16 05:51] LABS: BASOPHILS # (AUTO) 0.1 (0.0-0.1); BASOPHILS % 0.8 % (0.0-1.0); EOSINOPHILS # (AUTO) 0.2 (0.0-0.4); EOSINOPHILS % 1.9 % (0.0-6.0); HEMATOCRIT 37.1 % (38.2-49.6); HEMOGLOBIN 12.3 g/dL (14.0-18.0); LYMPHOCYTES # (AUTO) 3.2 (1.0-3.2); LYMPHOCYTES % 30.7 % (18.0-39.1); MEAN CORPUSCULAR HEMOGLOBIN 29.6 pg (28-32); MEAN CORPUSCULAR HGB CONC 33.2 g/dL (31-35); MEAN CORPUSCULAR VOLUME 89.2 fL (81-99); MONOCYTES # (AUTO) 1.1 (0.2-0.8); MONOCYTES % 10.3 % (4.4-11.3); NEUTROPHILS # (AUTO) 5.8 (2.1-6.9); NEUTROPHILS % 55.6 % (38.7-80.0); PLATELET COUNT 257 x10e3/uL (140-360); RED BLOOD COUNT 4.16 x10e6/uL (4.3-5.7); RED CELL DISTRIBUTION WIDTH 12.4 % (11.7-14.4)
[2022-01-16 06:30] LABS: ALBUMIN 3.2 g/dL (3.5-5.0); ALBUMIN/GLOBULIN RATIO 0.8 (0.8-2.0); ANION GAP 9.8 mmol/L (8-16); CALCIUM 8.2 mg/dL (8.4-10.2); CREATININE, SERUM 0.98 mg/dL (0.72-1.25); POTASSIUM 3.8 mmol/L (3.5-5.1)
[2022-01-16 06:44] LABS: CREATINE KINASE 112 IU/L (30-200)
[2022-01-16] MEDS: INSULIN LISPRO 100 UNIT/1 ML 3ML VIAL SQ SCH ×4 (07:30→22:28)
[2022-01-16] MEDS: PROPRANOLOL HCL 60 MG ER CAP PO SCH (12:06)
[2022-01-16 12:25] LABS: COLOR,URINE YELLOW (YELLOW)
[2022-01-16 12:26] LABS: CLARITY,URINE CLEAR (CLEAR); KETONES,URINE NEGATIVE (NEGATIVE); LEUKOCYTE ESTERASE ,URINE NEGATIVE (NEGATIVE); NITRITE,URINE NEGATIVE (NEGATIVE); PROTEIN,URINE DIPSTICK TRACE (NEGATIVE); URINE UROBILINOGEN 0.2 mg/dL (0.2 - 1)
[2022-01-16 12:53] LABS: BACTERIA,URINE FEW /HPF; EPITHELIAL CELLS,URINE FEW /LPF; RBC,URINE 0-5 /HPF (0-5); WBC,URINE (MAN) 0-5 /HPF (0-5)
[2022-01-16] MEDS ORDERED: Morphine 4mg INJECTION 4 MG/ML INJ ONE (14:05)
[2022-01-17] VITALS (10 sets, daily range): BP systolic 131–184; BP diastolic 56–117
[2022-01-17] MEDS ORDERED: HYDRALAZINE HCL 20 MG/ML VIAL IV PRN (05:30)
[2022-01-17] MEDS: INSULIN LISPRO 100 UNIT/1 ML 3ML VIAL SQ SCH ×4 (07:30→21:23)
[2022-01-17] MEDS: PROPRANOLOL HCL 60 MG ER CAP PO SCH (08:34)
[2022-01-17] MEDS ORDERED: PROPRANOLOL HCL 60 MG ER CAP PO SCH (09:00)
[2022-01-17] MEDS: SODIUM CHLORIDE 0.9% 1000ML 1,000 ML IV SCH ×2 (11:57→20:36)
[2022-01-17] MEDS: AMLODIPINE BESYLATE 10 MG TAB PO SCH (20:35)
[2022-01-18] VITALS (7 sets, daily range): BP systolic 135–160; BP diastolic 63–82
[2022-01-18] MEDS: INSULIN LISPRO 100 UNIT/1 ML 3ML VIAL SQ SCH ×4 (07:30→20:50)
[2022-01-18] MEDS: METFORMIN HCL 500 MG TAB CR PO SCH ×2 (08:00→17:14)
[2022-01-18] MEDS: PROPRANOLOL HCL 60 MG ER CAP PO SCH (09:00)
[2022-01-18] MEDS: SODIUM CHLORIDE 0.9% 1000ML 1,000 ML IV SCH ×2 (10:45→18:00)
[2022-01-18] MEDS ORDERED: FENTANYL CITRATE/PF 100MCG/2 ML INJ ONE (13:08)
[2022-01-18] MEDS ORDERED: BUPIVACAINE 0.25% 30ML SDV ONE (13:17)
[2022-01-18] MEDS ORDERED: LIDOCAINE HCL 2% LOCAL INJ 5 ML SDV VIAL INJ ONE (13:19)
[2022-01-18] MEDS ORDERED: POVIDONE IODINE 0.05% 0.05 % ML PO ONE (13:19)
[2022-01-18] MEDS ORDERED: SEVOFLURANE INHAL SOLN 250 ML PEN BTL ONE (13:19)
[2022-01-18] MEDS ORDERED: NEOSTIGMINE 1 MG/ML 10ML VIAL ONE (13:19)
[2022-01-18] MEDS ORDERED: DEXAMETHASONE SOD PHOS INJ 4 MG/ML SDV ONE (13:19)
[2022-01-18] MEDS ORDERED: ONDANSETRON HCL INJ 2MG/ML 2ML 2 MG/ML VIAL ONE (13:19)
[2022-01-18] MEDS ORDERED: ROCURONIUM BROMIDE 10 MG/ML 5ML VIAL IV ONE (13:19)
[2022-01-18] MEDS ORDERED: PROPOFOL IV EMULSION 10 MG/ML 20 ML VIAL ONE (13:19)
[2022-01-18] MEDS ORDERED: GLYCOPYRROLATE INJ 0.2 MG/ML VIAL ONE (13:19)
[2022-01-18] MEDS ORDERED: SUGAMMADEX SODIUM 200 MG/2 ML VIAL IV ONE (16:19)
[2022-01-18] MEDS ORDERED: ALBUTEROL/IPRATROPIUM 3 ML NEB ONE (16:44)
[2022-01-18] MEDS: Morphine 4mg INJECTION 4 MG/ML INJ IV PRN ×2 (18:30→23:55)
[2022-01-18] MEDS: AMLODIPINE BESYLATE 10 MG TAB PO SCH (20:48)
[2022-01-19] VITALS (8 sets, daily range): BP systolic 115–152; BP diastolic 58–79
[2022-01-19] MEDS: SODIUM CHLORIDE 0.9% 1000ML 1,000 ML IV SCH ×2 (00:29→16:50)
[2022-01-19 05:56] LABS: BASOPHILS # (AUTO) 0.1 (0.0-0.1); BASOPHILS % 0.3 % (0.0-1.0); HEMATOCRIT 42.2 % (38.2-49.6); HEMOGLOBIN 14.4 g/dL (14.0-18.0); LYMPHOCYTES # (AUTO) 2.9 (1.0-3.2); LYMPHOCYTES % 13.4 % (18.0-39.1); MEAN CORPUSCULAR HEMOGLOBIN 30.2 pg (28-32); MEAN CORPUSCULAR HGB CONC 34.1 g/dL (31-35); MEAN CORPUSCULAR VOLUME 88.5 fL (81-99); MONOCYTES # (AUTO) 1.3 (0.2-0.8); MONOCYTES % 6.1 % (4.4-11.3); NEUTROPHILS # (AUTO) 16.9 (2.1-6.9); NEUTROPHILS % 79.3 % (38.7-80.0); PLATELET COUNT 302 x10e3/uL (140-360); RED BLOOD COUNT 4.77 x10e6/uL (4.3-5.7); RED CELL DISTRIBUTION WIDTH 12.5 % (11.7-14.4)
[2022-01-19 06:21] LABS: ANION GAP 13.4 mmol/L (8-16); CALCIUM 8.7 mg/dL (8.4-10.2); CREATININE, SERUM 0.95 mg/dL (0.72-1.25); POTASSIUM 4.4 mmol/L (3.5-5.1)
[2022-01-19] MEDS ORDERED: HYDROCODONE/APAP 5MG-325MG TAB PO PRN (08:30)
[2022-01-19] MEDS: METFORMIN HCL 500 MG TAB CR PO SCH ×2 (08:51→17:03)
[2022-01-19] MEDS: PROPRANOLOL HCL 60 MG ER CAP PO SCH (08:51)
[2022-01-19] MEDS: INSULIN LISPRO 100 UNIT/1 ML 3ML VIAL SQ SCH ×4 (08:52→20:13)
[2022-01-19] MEDS: AMLODIPINE BESYLATE 10 MG TAB PO SCH (20:04)
[2022-01-19] MEDS: Morphine 4mg INJECTION 4 MG/ML INJ IV PRN (20:05)
[2022-01-19] MEDS ORDERED: DONEPEZIL HCL 5 MG TAB PO SCH (21:00)
[2022-01-19] MEDS ORDERED: TAMSULOSIN HCL 0.4 MG CAP PO SCH (21:00)
[2022-01-20 04:29] VITALS: BP 161/58
[2022-01-20 06:03] LABS: BASOPHILS # (AUTO) 0.1 (0.0-0.1); BASOPHILS % 0.6 % (0.0-1.0); EOSINOPHILS # (AUTO) 0.2 (0.0-0.4); EOSINOPHILS % 1.2 % (0.0-6.0); HEMATOCRIT 41.2 % (38.2-49.6); HEMOGLOBIN 13.4 g/dL (14.0-18.0); LYMPHOCYTES # (AUTO) 3.2 (1.0-3.2); MEAN CORPUSCULAR HEMOGLOBIN 29.6 pg (28-32); MEAN CORPUSCULAR HGB CONC 32.5 g/dL (31-35); MEAN CORPUSCULAR VOLUME 91.2 fL (81-99); MONOCYTES # (AUTO) 1.6 (0.2-0.8); MONOCYTES % 11.2 % (4.4-11.3); NEUTROPHILS # (AUTO) 9.4 (2.1-6.9); NEUTROPHILS % 64.5 % (38.7-80.0); PLATELET COUNT 249 x10e3/uL (140-360); RED BLOOD COUNT 4.52 x10e6/uL (4.3-5.7); RED CELL DISTRIBUTION WIDTH 12.7 % (11.7-14.4)
[2022-01-20 06:23] LABS: ANION GAP 10.9 mmol/L (8-16); CALCIUM 8.8 mg/dL (8.4-10.2); CREATININE, SERUM 1.1 mg/dL (0.72-1.25); POTASSIUM 3.9 mmol/L (3.5-5.1)
[2022-01-20] MEDS ORDERED: GLIMEPIRIDE 2 MG TAB PO SCH (08:00)
[2022-01-20 08:12] VITALS: BP 119/95
[2022-01-20 08:20] VITALS: BP 144/73
[2022-01-20] MEDS: INSULIN LISPRO 100 UNIT/1 ML 3ML VIAL SQ SCH ×3 (08:31→16:41)
[2022-01-20] MEDS: PROPRANOLOL HCL 60 MG ER CAP PO SCH (08:34)
[2022-01-20] MEDS: METFORMIN HCL 500 MG TAB CR PO SCH (08:34)
[2022-01-20] MEDS ORDERED: DULOXETINE HCL 30 MG DELAYED RELEASE PO SCH (09:00)
[2022-01-20] MEDS ORDERED: SITAGLIPTIN 100 MG TAB PO SCH (09:00)
[2022-01-20] MEDS: Morphine 4mg INJECTION 4 MG/ML INJ IV PRN (09:21)
[2022-01-20] MEDS ORDERED: HYDROCODON-ACE1 EA11 PO (11:02)
[2022-01-20 11:46] VITALS: BP 144/73
[2022-01-20] MEDS ORDERED: ONDANSETRON HCL 4 MG ORAL DISINTEGRATING TAB PO PRN (13:00)
[2022-01-20 15:40] VITALS: BP 105/87
[2022-01-20] MEDS ORDERED: PANTOPRAZOLE SOD 40 MG TABEC PO SCH (16:30)
[2022-01-20] MEDS ORDERED: SIMVASTATIN 20 MG TAB PO SCH (21:00)
== END 2022-01-20 16:47 | disposition home or self-care (01) | DRG 419 ==
LOC: ER 11:20 → ERHOLD 16:05 → MED/SURG3 16:54
PROVIDERS: ADMIT Internal Medicine; ATTEND Internal Medicine
PROC: 0FT44ZZ Resection of Gallbladder, Percutaneous Endoscopic Approach (ICD-10-PCS; principal; 2022-01-18 14:52)
DX: K82.8 Other specified diseases of gallbladder (principal); K81.1 Chronic cholecystitis; I49.9 Cardiac arrhythmia, unspecified; K21.9 Gastro-esophageal reflux disease without esophagitis; Z20.822 Contact with and (suspected) exposure to COVID-19; I48.0 Paroxysmal atrial fibrillation; Z79.01 Long term (current) use of anticoagulants; Z98.2 Presence of cerebrospinal fluid drainage device; R13.10 Dysphagia, unspecified; E11.69 Type 2 diabetes mellitus with other specified complication; E78.5 Hyperlipidemia, unspecified
CPT/HCPCS: 36415; 71045; 74177; 76705; 78227; 80048; 80053; 81001; 82150; 82550; 82553; 82948; 83690; 83735; 83880; 84443; 84484; 85025; 85610; 85730; 87086; 88304; 93005; 93306; 96372; 99284; A9537; J0360; J1100; J2001; J2270; J2405; J2543; J2710; J3010; J7030; Q9967

== ENCOUNTER 2022-04-22 16:50 | Emergency (ER) | payer MEDICARE ==
[~2022-04-22] VITALS: Ht 208.3 cm; Wt 99.3 kg
[~2022-04-22 16:50] MED LIST changes: +AMARYL2 MG PO; +AMLODIPINE BES2.5 MG PO; +ARICEPT5 MG PO; +CRESTOR10 MG PO; +FLOMAX0.4 MG PO; +HYDROCODON-ACE1 EA11 PO; +NEXIUM40 MG PO
== END 2022-04-22 20:11 | disposition home or self-care (01) ==
LOC: ER 17:05
DX: R60.9 Edema, unspecified (principal); M79.89 Other specified soft tissue disorders; I10 Essential (primary) hypertension; E11.9 Type 2 diabetes mellitus without complications; K21.9 Gastro-esophageal reflux disease without esophagitis; I25.10 Atherosclerotic heart disease of native coronary artery without angina pectoris; Z98.2 Presence of cerebrospinal fluid drainage device
CPT/HCPCS: 93971; 99283

== ENCOUNTER 2022-09-17 23:52 | Emergency (ER) | payer MEDICARE ==
[~2022-09-17] VITALS: Ht 208.3 cm; Wt 99.3 kg
[2022-09-17] MEDS ORDERED: ONDANSETRON HCL INJ 2MG/ML 2ML 2 MG/ML VIAL IV STA (23:54)
[2022-09-17] MEDS ORDERED: ONDANSETRON HCL INJ 2MG/ML 2ML 2 MG/ML VIAL ONE (23:57)
[2022-09-18 00:20] LABS: BASOPHILS # (AUTO) 0.1 (0.0-0.1); BASOPHILS % 0.8 % (0.0-1.0); EOSINOPHILS # (AUTO) 0.2 (0.0-0.4); EOSINOPHILS % 1.8 % (0.0-6.0); HEMATOCRIT 39.9 % (38.2-49.6); HEMOGLOBIN 12.6 g/dL (14.0-18.0); LYMPHOCYTES # (AUTO) 2.2 (1.0-3.2); LYMPHOCYTES % 16.3 % (18.0-39.1); MEAN CORPUSCULAR HEMOGLOBIN 28.3 pg (28-32); MEAN CORPUSCULAR HGB CONC 31.6 g/dL (31-35); MEAN CORPUSCULAR VOLUME 89.5 fL (81-99); MONOCYTES # (AUTO) 0.8 (0.2-0.8); MONOCYTES % 6.3 % (4.4-11.3); NEUTROPHILS # (AUTO) 9.9 (2.1-6.9); NEUTROPHILS % 74.3 % (38.7-80.0); PLATELET COUNT 228 x10e3/uL (140-360); RED BLOOD COUNT 4.46 x10e6/uL (4.3-5.7); RED CELL DISTRIBUTION WIDTH 13.5 % (11.7-14.4)
[2022-09-18 00:38] LABS: ALANINE AMINOTRANSFERASE 29 IU/L (0-55); ALBUMIN 3.6 g/dL (3.5-5.0); ALKALINE PHOSPHATASE 97 IU/L (40-150); ANION GAP 14.6 mmol/L (8-16); BLOOD UREA NITROGEN 15 mg/dL (7-26); BUN/CREATININE RATIO 15 (6-25); CALCIUM 9.1 mg/dL (8.4-10.2); CARBON DIOXIDE 24 mmol/L (22-29); CHLORIDE 104 mmol/L (98-107); GLUCOSE 137 mg/dL (74-118); POTASSIUM 3.6 mmol/L (3.5-5.1); SODIUM 139 mmol/L (136-145)
[2022-09-18] MEDS ORDERED: IOPAMIDOL 370 MG/ML 100 ML INFUS..BTL INJ ONE (01:12)
[2022-09-18] MEDS ORDERED: ONDANSETRON ODT4 MG PO (02:16)
[2022-09-18] MEDS ORDERED: FLOMAX0.4 MG PO (02:16)
[2022-09-18 02:33] LABS: CLARITY,URINE CLEAR (CLEAR); COLOR,URINE YELLOW (YELLOW)
[2022-09-18 02:34] LABS: KETONES,URINE NEGATIVE (NEGATIVE); LEUKOCYTE ESTERASE ,URINE NEGATIVE (NEGATIVE); NITRITE,URINE NEGATIVE (NEGATIVE); PROTEIN,URINE DIPSTICK 2+ (NEGATIVE); URINE UROBILINOGEN 0.2 mg/dL (0.2 - 1)
[2022-09-18 02:43] LABS: BACTERIA,URINE RARE /HPF; EPITHELIAL CELLS,URINE RARE /LPF; MUCUS,URINE MODERATE (RARE); RBC,URINE 0-5 /HPF (0-5)
[2022-09-18] MEDS ORDERED: CEFDINIR300 MG PO (03:00)
[2022-09-18 03:09] VITALS: BP 119/84
== END 2022-09-18 03:10 | disposition home or self-care (01) ==
LOC: ER 23:56
DX: R11.2 Nausea with vomiting, unspecified (principal); N40.1 Benign prostatic hyperplasia with lower urinary tract symptoms; R33.8 Other retention of urine; N39.0 Urinary tract infection, site not specified; I10 Essential (primary) hypertension; E11.65 Type 2 diabetes mellitus with hyperglycemia; I25.10 Atherosclerotic heart disease of native coronary artery without angina pectoris; R94.31 Abnormal electrocardiogram [ECG] [EKG]
CPT/HCPCS: 36415; 70450; 71045; 74177; 80053; 81001; 82948; 83690; 84484; 85025; 93005; 99285; J2405; Q9967

== ENCOUNTER 2022-10-20 15:07 | Inpatient (IN) | payer MEDICARE ==
[~2022-10-20] VITALS: Ht 208.3 cm; Wt 99.3 kg
[~2022-10-20 15:07] MED LIST changes: +ONDANSETRON ODT4 MG PO
[2022-10-20 16:54] LABS: BASOPHILS # (AUTO) 0.1 (0.0-0.1); BASOPHILS % 0.4 % (0.0-1.0); EOSINOPHILS % 0.2 % (0.0-6.0); HEMATOCRIT 42.7 % (38.2-49.6); HEMOGLOBIN 14.2 g/dL (14.0-18.0); LYMPHOCYTES % 8.9 % (18.0-39.1); MEAN CORPUSCULAR HEMOGLOBIN 28.6 pg (28-32); MEAN CORPUSCULAR HGB CONC 33.3 g/dL (31-35); MEAN CORPUSCULAR VOLUME 85.9 fL (81-99); MONOCYTES # (AUTO) 2.2 (0.2-0.8); MONOCYTES % 9.8 % (4.4-11.3); NEUTROPHILS # (AUTO) 17.8 (2.1-6.9); NEUTROPHILS % 79.8 % (38.7-80.0); PLATELET COUNT 241 x10e3/uL (140-360); RED BLOOD COUNT 4.97 x10e6/uL (4.3-5.7); RED CELL DISTRIBUTION WIDTH 14.1 % (11.7-14.4)
[2022-10-20 17:14] LABS: ALBUMIN 3.4 g/dL (3.5-5.0); ALBUMIN/GLOBULIN RATIO 0.8 (0.8-2.0); ANION GAP 14.4 mmol/L (8-16); CALCIUM 9.4 mg/dL (8.4-10.2); CREATININE, SERUM 0.9 mg/dL (0.72-1.25); POTASSIUM 4.4 mmol/L (3.5-5.1)
[2022-10-20] MEDS ORDERED: IOPAMIDOL 370 MG/ML 100 ML INFUS..BTL INJ ONE (17:28)
[2022-10-20] MEDS ORDERED: ONDANSETRON HCL INJ 2MG/ML 2ML 2 MG/ML VIAL IV PRN (19:30)
[2022-10-20 20:35] LABS: CLARITY,URINE CLEAR (CLEAR); COLOR,URINE YELLOW (YELLOW); KETONES,URINE NEGATIVE (NEGATIVE); LEUKOCYTE ESTERASE ,URINE NEGATIVE (NEGATIVE); NITRITE,URINE NEGATIVE (NEGATIVE); PROTEIN,URINE DIPSTICK 2+ (NEGATIVE); URINE UROBILINOGEN 0.2 mg/dL (0.2 - 1)
[2022-10-20 20:47] LABS: BACTERIA,URINE FEW /HPF; RBC,URINE 0-5 /HPF (0-5)
[2022-10-21] VITALS (9 sets, daily range): BP systolic 120–156; BP diastolic 50–71; PULSE 56–72; RESP 18–20; TEMP 97.3–98.2; O2SAT 98–100
[2022-10-21] MEDS: SODIUM CHLORIDE 0.9% 1000ML 1,000 ML IV SCH ×4 (02:37→21:04)
[2022-10-21] MEDS ORDERED: LOSARTAN POTASS25 MG PO (03:15)
[2022-10-21] MEDS ORDERED: FLECAINIDE ACE100 MG PO (03:15)
[2022-10-21 08:18] LABS: BASOPHILS # (AUTO) 0.1 (0.0-0.1); BASOPHILS % 0.4 % (0.0-1.0); EOSINOPHILS # (AUTO) 0.2 (0.0-0.4); EOSINOPHILS % 0.8 % (0.0-6.0); HEMATOCRIT 38.6 % (38.2-49.6); HEMOGLOBIN 12.8 g/dL (14.0-18.0); LYMPHOCYTES # (AUTO) 3.4 (1.0-3.2); LYMPHOCYTES % 17.2 % (18.0-39.1); MEAN CORPUSCULAR HEMOGLOBIN 28.7 pg (28-32); MEAN CORPUSCULAR HGB CONC 33.2 g/dL (31-35); MEAN CORPUSCULAR VOLUME 86.5 fL (81-99); MONOCYTES # (AUTO) 2.2 (0.2-0.8); MONOCYTES % 11.1 % (4.4-11.3); NEUTROPHILS # (AUTO) 13.8 (2.1-6.9); NEUTROPHILS % 69.6 % (38.7-80.0); PLATELET COUNT 223 x10e3/uL (140-360); RED BLOOD COUNT 4.46 x10e6/uL (4.3-5.7); RED CELL DISTRIBUTION WIDTH 14.1 % (11.7-14.4)
[2022-10-21 08:50] LABS: ANION GAP 13.7 mmol/L (8-16); CREATININE, SERUM 0.88 mg/dL (0.72-1.25); POTASSIUM 3.7 mmol/L (3.5-5.1)
[2022-10-22] VITALS (7 sets, daily range): BP systolic 136–180; BP diastolic 69–84; PULSE 62–83; RESP 16–20; TEMP 97.5–98.7; O2SAT 96–100
[2022-10-22] MEDS: SODIUM CHLORIDE 0.9% 1000ML 1,000 ML IV SCH ×2 (06:08→12:35)
[2022-10-22 12:34] LABS: BASOPHILS # (AUTO) 0.1 (0.0-0.1); BASOPHILS % 0.6 % (0.0-1.0); EOSINOPHILS # (AUTO) 0.1 (0.0-0.4); EOSINOPHILS % 0.9 % (0.0-6.0); HEMATOCRIT 40.4 % (38.2-49.6); HEMOGLOBIN 13.1 g/dL (14.0-18.0); LYMPHOCYTES # (AUTO) 2.6 (1.0-3.2); LYMPHOCYTES % 19.9 % (18.0-39.1); MEAN CORPUSCULAR HEMOGLOBIN 28.4 pg (28-32); MEAN CORPUSCULAR HGB CONC 32.4 g/dL (31-35); MEAN CORPUSCULAR VOLUME 87.6 fL (81-99); MONOCYTES # (AUTO) 1.3 (0.2-0.8); MONOCYTES % 9.8 % (4.4-11.3); NEUTROPHILS # (AUTO) 8.8 (2.1-6.9); NEUTROPHILS % 68.1 % (38.7-80.0); PLATELET COUNT 219 x10e3/uL (140-360); RED BLOOD COUNT 4.61 x10e6/uL (4.3-5.7); RED CELL DISTRIBUTION WIDTH 14.2 % (11.7-14.4)
[2022-10-22] MEDS ORDERED: ACETAMINOPHEN 325 MG TAB PO ONE (13:00)
[2022-10-22] MEDS: LOSARTAN POTASSIUM 25 MG TAB PO SCH (16:43)
[2022-10-22] MEDS: METFORMIN HCL 500 MG TAB PO SCH (16:43)
[2022-10-22] MEDS: FLECAINIDE ACETATE 100 MG TAB PO SCH (16:48)
[2022-10-22] MEDS: SIMVASTATIN 20 MG TAB PO SCH (21:24)
[2022-10-22] MEDS: DONEPEZIL HCL 5 MG TAB PO SCH (21:24)
[2022-10-22] MEDS: HYDRALAZINE HCL 20 MG/ML VIAL IV PRN (21:27)
[2022-10-23] VITALS (8 sets, daily range): BP systolic 147–180; BP diastolic 60–85; PULSE 64–93; RESP 18–20; TEMP 97.5–99.9; O2SAT 95–99
[2022-10-23] MEDS: SODIUM CHLORIDE 0.9% 1000ML 1,000 ML IV SCH ×4 (01:05→18:25)
[2022-10-23] MEDS: HYDRALAZINE HCL 20 MG/ML VIAL IV PRN (04:41)
[2022-10-23 05:46] LABS: BASOPHILS # (AUTO) 0.1 (0.0-0.1); BASOPHILS % 0.9 % (0.0-1.0); EOSINOPHILS # (AUTO) 0.2 (0.0-0.4); EOSINOPHILS % 1.7 % (0.0-6.0); HEMATOCRIT 41.4 % (38.2-49.6); HEMOGLOBIN 13.5 g/dL (14.0-18.0); LYMPHOCYTES % 23.3 % (18.0-39.1); MEAN CORPUSCULAR HEMOGLOBIN 28.3 pg (28-32); MEAN CORPUSCULAR HGB CONC 32.6 g/dL (31-35); MEAN CORPUSCULAR VOLUME 86.8 fL (81-99); MONOCYTES # (AUTO) 1.4 (0.2-0.8); NEUTROPHILS # (AUTO) 7.9 (2.1-6.9); PLATELET COUNT 222 x10e3/uL (140-360); RED BLOOD COUNT 4.77 x10e6/uL (4.3-5.7); RED CELL DISTRIBUTION WIDTH 14.2 % (11.7-14.4)
[2022-10-23 06:09] LABS: ANION GAP 12.6 mmol/L (8-16); CALCIUM 8.9 mg/dL (8.4-10.2); CREATININE, SERUM 0.85 mg/dL (0.72-1.25); POTASSIUM 3.6 mmol/L (3.5-5.1)
[2022-10-23] MEDS: TAMSULOSIN HCL 0.4 MG CAP PO SCH (09:46)
[2022-10-23] MEDS: LOSARTAN POTASSIUM 25 MG TAB PO SCH ×2 (09:46→18:17)
[2022-10-23] MEDS: FLECAINIDE ACETATE 100 MG TAB PO SCH ×2 (09:46→18:17)
[2022-10-23] MEDS: METFORMIN HCL 500 MG TAB PO SCH ×2 (09:46→18:18)
[2022-10-23] MEDS: HYDROCODONE/APAP 5MG-325MG TAB PO PRN ×2 (14:40→20:52)
[2022-10-23] MEDS: SIMVASTATIN 20 MG TAB PO SCH (20:50)
[2022-10-23] MEDS: DONEPEZIL HCL 5 MG TAB PO SCH (20:50)
[2022-10-24 00:47] VITALS: BP 155/64; PULSE 81; RESP 16; TEMP 98.4; O2SAT 98
[2022-10-24 00:48] VITALS: BP 155/64; PULSE 81; RESP 16; TEMP 98.4; O2SAT 98
[2022-10-24 04:00] VITALS: BP 168/68; PULSE 54; RESP 18; TEMP 98.5; O2SAT 98
[2022-10-24 05:00] LABS: BASOPHILS # (AUTO) 0.1 (0.0-0.1); EOSINOPHILS # (AUTO) 0.3 (0.0-0.4); EOSINOPHILS % 2.8 % (0.0-6.0); HEMATOCRIT 36.9 % (38.2-49.6); HEMOGLOBIN 12.2 g/dL (14.0-18.0); LYMPHOCYTES # (AUTO) 2.5 (1.0-3.2); LYMPHOCYTES % 26.9 % (18.0-39.1); MEAN CORPUSCULAR HEMOGLOBIN 28.5 pg (28-32); MEAN CORPUSCULAR HGB CONC 33.1 g/dL (31-35); MEAN CORPUSCULAR VOLUME 86.2 fL (81-99); MONOCYTES % 11.3 % (4.4-11.3); NEUTROPHILS # (AUTO) 5.3 (2.1-6.9); NEUTROPHILS % 56.9 % (38.7-80.0); PLATELET COUNT 228 x10e3/uL (140-360); RED BLOOD COUNT 4.28 x10e6/uL (4.3-5.7)
[2022-10-24 05:34] LABS: ANION GAP 10.5 mmol/L (8-16); CALCIUM 8.6 mg/dL (8.4-10.2); CREATININE, SERUM 0.83 mg/dL (0.72-1.25); POTASSIUM 3.5 mmol/L (3.5-5.1)
[2022-10-24] MEDS ORDERED: GLIMEPIRIDE 2 MG TAB PO SCH (09:00)
[2022-10-24] MEDS ORDERED: PANTOPRAZOLE SOD 40 MG TABEC PO SCH (09:00)
[2022-10-24 09:10] VITALS: BP 168/68; PULSE 54; RESP 18; TEMP 98.5; O2SAT 98
[2022-10-24 09:15] VITALS: BP 160/59; PULSE 60; RESP 18; TEMP 98.2; O2SAT 97
[2022-10-24] MEDS: HYDROCODONE/APAP 5MG-325MG TAB PO PRN (09:50)
[2022-10-24] MEDS: TAMSULOSIN HCL 0.4 MG CAP PO SCH (09:51)
[2022-10-24] MEDS: METFORMIN HCL 500 MG TAB PO SCH (09:51)
[2022-10-24] MEDS: FLECAINIDE ACETATE 100 MG TAB PO SCH (09:52)
[2022-10-24] MEDS: LOSARTAN POTASSIUM 25 MG TAB PO SCH (09:52)
== END 2022-10-24 11:07 | disposition home or self-care (01) | DRG 816 ==
LOC: ER 15:18 → ERHOLD 20:03 → MED/SURG2 10-21 01:38 → OBSVTOIN 10-22 13:11
PROVIDERS: ADMIT Internal Medicine; ATTEND Internal Medicine
DX: D72.829 Elevated white blood cell count, unspecified (principal); F03.90 Unspecified dementia, unspecified severity, without behavioral disturbance, psychotic disturbance, mood disturbance, and anxiety; K21.9 Gastro-esophageal reflux disease without esophagitis; N40.0 Benign prostatic hyperplasia without lower urinary tract symptoms; I25.10 Atherosclerotic heart disease of native coronary artery without angina pectoris; I11.9 Hypertensive heart disease without heart failure; E11.65 Type 2 diabetes mellitus with hyperglycemia; K57.90 Diverticulosis of intestine, part unspecified, without perforation or abscess without bleeding; M19.90 Unspecified osteoarthritis, unspecified site; Z90.49 Acquired absence of other specified parts of digestive tract; Z79.84 Long term (current) use of oral hypoglycemic drugs
CPT/HCPCS: 0223U; 36415; 71045; 74177; 80048; 80053; 81001; 82948; 83690; 84484; 85025; 87040; 87045; 87086; 93005; 96361; 99284; G0378; J2405; J2543; J7030; Q9967

== ENCOUNTER 2024-04-10 11:57 | Observation (INO) | payer MEDICARE ==
[~2024-04-10] VITALS: Ht 177.8 cm; Wt 99.3 kg
[~2024-04-10 11:57] MED LIST changes: +DICYCLOMINE HCL20 MG PO; +LOSARTAN POTASS25 MG PO; +PANTOPRAZOLE SO40 MG PO
[2024-04-10 13:00] VITALS: TEMP 98.4
[2024-04-10 13:42] LABS: BASOPHILS # (AUTO) 0.1 (0.0-0.1); EOSINOPHILS # (AUTO) 0.3 (0.0-0.4); EOSINOPHILS % 2.8 % (0.0-6.0); HEMATOCRIT 45.6 % (38.2-49.6); HEMOGLOBIN 15.1 g/dL (14.0-18.0); LYMPHOCYTES % 28.2 % (18.0-39.1); MEAN CORPUSCULAR HEMOGLOBIN 31.7 pg (28-32); MEAN CORPUSCULAR HGB CONC 33.1 g/dL (31-35); MEAN CORPUSCULAR VOLUME 95.6 fL (81-99); MONOCYTES # (AUTO) 0.9 (0.2-0.8); MONOCYTES % 8.2 % (4.4-11.3); NEUTROPHILS # (AUTO) 6.2 (2.1-6.9); NEUTROPHILS % 59.4 % (38.7-80.0); PLATELET COUNT 208 x10e3/uL (140-360); RED BLOOD COUNT 4.77 x10e6/uL (4.3-5.7); RED CELL DISTRIBUTION WIDTH 12.6 % (11.7-14.4); WHITE BLOOD COUNT 10.49 x10e3/uL (4.8-10.8)
[2024-04-10 14:00] LABS: ALBUMIN 3.7 g/dL (3.5-5.0); ALBUMIN/GLOBULIN RATIO 0.9 (0.8-2.0); ANION GAP 16.5 mmol/L (8-16); BILIRUBIN,TOTAL 0.6 mg/dL (0.2-1.2); CREATININE, SERUM 1.16 mg/dL (0.72-1.25); POTASSIUM 4.5 mmol/L (3.5-5.1); TOTAL PROTEIN 7.9 g/dL (6.5-8.1)
[2024-04-10 15:17] LABS: BILIRUBIN,URINE NEGATIVE (NEGATIVE); CLARITY,URINE CLEAR (CLEAR); COLOR,URINE YELLOW (YELLOW); GLUCOSE, URINE >=1000 (NEGATIVE); KETONES,URINE NEGATIVE (NEGATIVE); LEUKOCYTE ESTERASE ,URINE NEGATIVE (NEGATIVE); NITRITE,URINE NEGATIVE (NEGATIVE); PH,URINE 5.5 (5 - 7); PROTEIN,URINE DIPSTICK NEGATIVE (NEGATIVE); URINE UROBILINOGEN 0.2 mg/dL (0.2 - 1)
[2024-04-10 15:26] LABS: BACTERIA,URINE RARE /HPF; WBC,URINE (MAN) 0-5 /HPF (0-5)
[2024-04-10] MEDS ORDERED: SODIUM CHLORIDE FLUSH 10 ML SYR INJ PRN (18:45)
[2024-04-10] MEDS ORDERED: ONDANSETRON HCL INJ 2MG/ML 2ML 2 MG/ML VIAL IV PRN (18:45)
[2024-04-10] MEDS: HYDRALAZINE HCL 20 MG/ML VIAL IV STA (19:23)
[2024-04-10 19:42] VITALS: PULSE 48; RESP 17
[2024-04-10] MEDS ORDERED: HYDRALAZINE HCL 20 MG/ML VIAL IV PRN (20:15)
[2024-04-10] MEDS ORDERED: BISACODYL 10 MG SUPP PR PRN (20:30)
[2024-04-10] MEDS ORDERED: ACETAMINOPHEN 325 MG TAB PO PRN (20:30)
[2024-04-10] MEDS ORDERED: DEXTROSE 50% SYRINGE 50 ML IV PRN (20:45)
[2024-04-10] MEDS ORDERED: HYDROCODONE/APAP 5MG-325MG TAB PO PRN (21:00)
[2024-04-10] MEDS ORDERED: SIMVASTATIN 40 MG TAB PO SCH (21:00)
[2024-04-10 21:19] VITALS: BP 158/85; PULSE 53; RESP 17; TEMP 97.9; O2SAT 100
[2024-04-10] MEDS: CRESTOR 10MG PO SCH (21:57)
[2024-04-10] MEDS: TAMSULOSIN HCL 0.4 MG CAP PO SCH (21:57)
[2024-04-10] MEDS: INSULIN LISPRO 100 UNIT/1 ML 3ML VIAL SQ SCH (21:58)
[2024-04-10 22:20] VITALS: BP 158/85; PULSE 53; RESP 17; TEMP 97.9; O2SAT 100
[2024-04-11] VITALS (16 sets, daily range): BP systolic 138–166; BP diastolic 66–98; PULSE 53–97; RESP 13–22; TEMP 97.7–98.2; O2SAT 92–100
[2024-04-11 06:11] LABS: BASOPHILS # (AUTO) 0.1 (0.0-0.1); BASOPHILS % 0.8 % (0.0-1.0); EOSINOPHILS # (AUTO) 0.4 (0.0-0.4); EOSINOPHILS % 3.2 % (0.0-6.0); HEMATOCRIT 44.9 % (38.2-49.6); HEMOGLOBIN 14.8 g/dL (14.0-18.0); LYMPHOCYTES # (AUTO) 3.3 (1.0-3.2); LYMPHOCYTES % 28.9 % (18.0-39.1); MEAN CORPUSCULAR HEMOGLOBIN 31.5 pg (28-32); MEAN CORPUSCULAR VOLUME 95.5 fL (81-99); MONOCYTES # (AUTO) 1.1 (0.2-0.8); MONOCYTES % 9.6 % (4.4-11.3); NEUTROPHILS # (AUTO) 6.5 (2.1-6.9); PLATELET COUNT 199 x10e3/uL (140-360); RED CELL DISTRIBUTION WIDTH 12.4 % (11.7-14.4)
[2024-04-11 06:42] LABS: ALBUMIN 3.4 g/dL (3.5-5.0); ALBUMIN/GLOBULIN RATIO 0.9 (0.8-2.0); ANION GAP 13.9 mmol/L (8-16); BILIRUBIN,TOTAL 0.5 mg/dL (0.2-1.2); CALCIUM 9.4 mg/dL (8.4-10.2); CREATININE, SERUM 0.97 mg/dL (0.72-1.25); POTASSIUM 3.9 mmol/L (3.5-5.1); TOTAL PROTEIN 7.2 g/dL (6.5-8.1)
[2024-04-11 07:03] LABS: CALCIUM IONIZED 1.2 mmol/L (1.09-1.30)
[2024-04-11 07:08] LABS: MAGNESIUM 1.6 MG/DL (1.3-2.1); PHOSPHORUS 3.3 MG/DL (2.3-4.7)
[2024-04-11] MEDS: PANTOPRAZOLE SOD 40 MG TABEC PO SCH (08:12)
[2024-04-11] MEDS: SENNOSIDES 8.6 MG TAB PO SCH (08:13)
[2024-04-11] MEDS: DOCUSATE SODIUM 100 MG CAP PO SCH (08:13)
[2024-04-11] MEDS: LOSARTAN POTASSIUM 25 MG TAB PO SCH (08:14)
[2024-04-11 17:10] LABS: THYROID STIMULATING HORMONE 3.963 uIU/mL (0.350-4.940)
[2024-04-11] MEDS ORDERED: CRESTOR 10MG PO SCH (21:00)
[2024-04-14 06:15] LABS: ABG PH 7.38 (7.35-7.45)
== END 2024-04-11 15:45 | disposition home or self-care (01) ==
LOC: ER 14:25 → ERHOLD 18:39 → ICU 20:53
PROVIDERS: ADMIT Internal Medicine; ATTEND Internal Medicine
DX: R00.1 Bradycardia, unspecified (principal); R53.1 Weakness; R53.81 Other malaise; I49.3 Ventricular premature depolarization; E11.65 Type 2 diabetes mellitus with hyperglycemia; Z79.84 Long term (current) use of oral hypoglycemic drugs; G91.2 (Idiopathic) normal pressure hydrocephalus; Z98.2 Presence of cerebrospinal fluid drainage device; I10 Essential (primary) hypertension; I25.10 Atherosclerotic heart disease of native coronary artery without angina pectoris; E78.5 Hyperlipidemia, unspecified; K21.9 Gastro-esophageal reflux disease without esophagitis; E66.01 Morbid (severe) obesity due to excess calories; Z68.31 Body mass index [BMI] 31.0-31.9, adult; Z79.899 Other long term (current) drug therapy
CPT/HCPCS: 36415 ×2; 70450; 75809; 80053 ×2; 81001; 82805; 82948 ×2; 83036; 83735; 83880; 84100; 84443; 84484; 85025 ×2; 93005; 96372; 99284; G0378 ×2; J0360; S0164

== ENCOUNTER 2024-07-02 13:53 | Emergency (ER) | payer MEDICARE ==
[~2024-07-02] VITALS: Ht 177.8 cm; Wt 99.3 kg
[2024-07-02 14:15] VITALS: PULSE 89; RESP 18; TEMP 98
[2024-07-02] MEDS ORDERED: ONDANSETRON HCL INJ 2MG/ML 2ML 2 MG/ML VIAL IV STA (15:03)
[2024-07-02 15:37] LABS: BASOPHILS # (AUTO) 0.1 (0.0-0.1); BASOPHILS % 0.6 % (0.0-1.0); EOSINOPHILS # (AUTO) 0.1 (0.0-0.4); EOSINOPHILS % 0.8 % (0.0-6.0); HEMATOCRIT 45.2 % (38.2-49.6); HEMOGLOBIN 15.2 g/dL (14.0-18.0); LYMPHOCYTES # (AUTO) 1.8 (1.0-3.2); LYMPHOCYTES % 11.9 % (18.0-39.1); MEAN CORPUSCULAR HEMOGLOBIN 30.8 pg (28-32); MEAN CORPUSCULAR HGB CONC 33.6 g/dL (31-35); MEAN CORPUSCULAR VOLUME 91.5 fL (81-99); MONOCYTES # (AUTO) 0.9 (0.2-0.8); MONOCYTES % 5.8 % (4.4-11.3); NEUTROPHILS % 80.4 % (38.7-80.0); PLATELET COUNT 250 x10e3/uL (140-360); RED BLOOD COUNT 4.94 x10e6/uL (4.3-5.7); RED CELL DISTRIBUTION WIDTH 12.1 % (11.7-14.4); WHITE BLOOD COUNT 14.94 x10e3/uL (4.8-10.8)
[2024-07-02 16:04] LABS: INR 0.95; PROTHROMBIN TIME 13.3 seconds (11.9-14.5)
[2024-07-02 16:05] LABS: PARTIAL THROMBOPLASTIN TIME 29.9 seconds (23.8-35.5)
[2024-07-02 16:13] LABS: ALBUMIN 3.7 g/dL (3.5-5.0); ALBUMIN/GLOBULIN RATIO 0.9 (0.8-2.0); ANION GAP 18.6 mmol/L (8-16); BILIRUBIN,TOTAL 0.5 mg/dL (0.2-1.2); CALCIUM 9.7 mg/dL (8.4-10.2); CREATININE, SERUM 1.04 mg/dL (0.72-1.25); MAGNESIUM 1.3 MG/DL (1.3-2.1); POTASSIUM 3.6 mmol/L (3.5-5.1); TOTAL PROTEIN 7.6 g/dL (6.5-8.1)
[2024-07-02 16:19] LABS: TROPONIN I 0.006 ng/mL (0-0.300)
[2024-07-02] MEDS ORDERED: IOPAMIDOL 370 MG/ML 100 ML INFUS..BTL INJ ONE (16:29)
[2024-07-02 18:28] VITALS: BP 138/87; PULSE 72; RESP 18; O2SAT 100
== END 2024-07-02 18:32 | disposition home or self-care (01) ==
LOC: ER 15:05
DX: R10.13 Epigastric pain (principal); K29.70 Gastritis, unspecified, without bleeding; I10 Essential (primary) hypertension; E11.65 Type 2 diabetes mellitus with hyperglycemia; I25.10 Atherosclerotic heart disease of native coronary artery without angina pectoris; K21.9 Gastro-esophageal reflux disease without esophagitis; G91.9 Hydrocephalus, unspecified; Z98.2 Presence of cerebrospinal fluid drainage device; R94.31 Abnormal electrocardiogram [ECG] [EKG]
CPT/HCPCS: 36415; 71045; 74177; 80053; 82550; 83690; 83735; 84484; 85025; 85610; 85730; 93005; 99284; Q9967

== ENCOUNTER → 2024-12-30 | Day surgery (SDC) | payer MEDICARE ==
[2024-12-24 12:49] LABS: BASOPHILS % 1.1 % (0.0-1.0); EOSINOPHILS % 1.7 % (0.0-6.0); LYMPHOCYTES % 27.3 % (18.0-39.1); MONOCYTES % 8.3 % (4.4-11.3); NEUTROPHILS % 61.3 % (38.7-80.0); RED CELL DISTRIBUTION WIDTH 14.8 % (11.7-14.4)
[~2024-12-30] MED LIST changes: +ACETAMINOPHEN PO; +AMLODIPINE BESYL5 MG PO; +CEFUROXIME250 MG PO; +GLUCAGON FOR INJ 1 MG VIAL ONE; +HYOSCYAMINE SULFATE 0.5 MG/ML INJ ONE; +LEVOFLOXACIN250 MG PO; +LIDOCAINE HCL 2% LOCAL INJ 5 ML SDV VIAL INJ ONE; +METOCLOPRAMIDE10 MG PO; +NOVOLOG SC; +PROPOFOL IV EMULSION 50 ML IV ONE; +TRESIBA FL200 UNIT/1 SC
[2024-12-30] MEDS: LACTATED RINGER'S 1,000 ML ONE (11:28)
[2024-12-30] MEDS: INSULIN REGULAR, HUMAN 100 UNIT/1 ML ONE (13:11)
[2024-12-30 14:40] VITALS: TEMP 97
[2024-12-30 15:20] VITALS: BP 140/72; PULSE 63; RESP 18; O2SAT 99
== END | disposition home or self-care (01) ==
LOC: OR 10:42
PROVIDERS: ATTEND Internal Medicine Gastroenterology
DX: K22.70 Barrett's esophagus without dysplasia (principal); K29.50 Unspecified chronic gastritis without bleeding; K22.2 Esophageal obstruction; D12.4 Benign neoplasm of descending colon; D12.3 Benign neoplasm of transverse colon; K44.9 Diaphragmatic hernia without obstruction or gangrene; K57.30 Diverticulosis of large intestine without perforation or abscess without bleeding; K64.8 Other hemorrhoids; I10 Essential (primary) hypertension; E11.9 Type 2 diabetes mellitus without complications; E78.00 Pure hypercholesterolemia, unspecified; M19.90 Unspecified osteoarthritis, unspecified site; F03.90 Unspecified dementia, unspecified severity, without behavioral disturbance, psychotic disturbance, mood disturbance, and anxiety; K76.0 Fatty (change of) liver, not elsewhere classified; Z79.84 Long term (current) use of oral hypoglycemic drugs; Z79.4 Long term (current) use of insulin; Z79.899 Other long term (current) drug therapy; Z80.0 Family history of malignant neoplasm of digestive organs; Z68.31 Body mass index [BMI] 31.0-31.9, adult; Z01.812 Encounter for preprocedural laboratory examination
CPT/HCPCS: 36415 ×2; 43239; 43450; 45385; 82948; 85025; 88305; J1610; J1980; J2003; J2470; J2704; J7121; 88312